=== PATIENT | male | born 1965 | race Caucasian/White ===

== ENCOUNTER → 2020-03-20 10:28 | Outpatient (REF) | payer MEDICARE, MEDICAID, SELFPAY ==
--- NOTE | 2020-03-20 10:30 | CA_ITS ---
Transthoracic Echocardiogram Patient (Last, First, Middle): Andry Lehman, Gender: Male Date of : 1965 Age: 55 Procedure Date: 03/20/2020 Procedure Type: Transthoracic Echocardiogram Location: OP Height: 170.18 cm Weight: 94.8 kg BSA: 2.06 m2 Heart Rate: bpm BP: 118 / 60 mmHg Systems Tester: MAYR Referring MD: Ramin Pillai MD Symptoms: [facility] [place] Conclusions: - 1. Normal LV systolic function with impaired relaxation filling pattern next 2. Slightly increased gradient across aortic valve suggestive may be early aortic stenosis 3. No pericardial effusion Findings Procedure Information Contrast agent, definity, is being given per protocol without apparent complications. Left Ventricle Normal left ventricular size, thickness, and systolic function. The visually estimated ejection fraction is between 55-60%. Spectral Doppler is indicative of an impaired relaxation filling pattern. E/E prime ratio is <8, consistent with normal filling pressures. Evidence suggests grade I (mild) diastolic dysfunction. Right Ventricle Normal right ventricular cavity size and systolic function. There is an ICD wire seen in the right ventricle. Atria Both atria are normal in size. There is no evidence of interatrial shunt. Aortic Valve There is mild calcification of the aortic valve. There is mild aortic valve stenosis. The mean gradient is 8 mmHg. The aortic valve area is 1.79 cm2. There is trace (trivial) aortic valve regurgitation. Mitral Valve There is mild anterior and posterior mitral leaflet thickening. There is trace mitral valve regurgitation. There is no mitral valve stenosis. Pulmonic Valve The pulmonic valve was not well visualized. Tricuspid Valve Likely normal tricuspid valve structure and function. Tricuspid regurgitation envelope is inadequate for calculation of right ventricular systolic pressure. Great Vessels All visible segments of the aorta are normal in size. The pulmonary artery was not well visualized. Venous The inferior vena cava is normal in size and collapses greater than 50% with inspiration. Pericardium/Pleural There is no evidence of pericardial effusion. Prior Study Comparison Changes noted compared to prior study dated: 04/25/2019. LV systolic function is normalized Measurements 2D Linear Measurements RVIDd: 3.13 RVIDd Index: 1.52 IVSd: 0.90 0.6-0.9/0.6-1.0 cm LVIDd: 5.77 3.9-5.3/4.2-5.9 cm LVIDd Index: 2.80 2.4-3.2/2.2-3.1 cm/m2 LVIDs: 4.08 2.0-3.6 cm LVPWd: 1.17 0.7-1.1 cm Ao Root: 2.70 2.1-3.5 cm LA Diam: 3.90 2.7-3.8/3.0-4.0 cm LAIDs Index: 1.89 1.5-2.3 cm/m2 LV Mass: 301.77 67-162/88-224 g LV Mass Index: 146.49 43-95/49-115 g/m2 LVOT Diam: 2.30 3.0+(-)1.3 cm 2D Systolic Function EF 4C: 54.20 >55% EF 2C: 59.60 >55% EF BiP: 56.60 >55% Mitral Valve MV Pk E: 0.59 MV PK A: 0.73 MV Decel Time: 222.00 E/A: 0.80 E'Lateral: 7.74 E'Medial: 5.03 E/E' Med: 11.70 E/E' Lat: 7.60 Aortic Valve AoV Pk Aleksey: 1.91 AoV Mn Aleksey: 1.36 AoV VTI: 0.46 AoV Pk Grad: 15.00 Aov Mn Grad: 8.00 SULTANA Cont.VTI: 1.79 LVOT LVOT Pk Aleksey: 0.90 LVOT Mn Aleksey: 0.64 LVOT VTI: 0.20 LVOT Pk Grad: 3.00 LVOT Mn Grad: 2.00 LVOT Diam: 2.30 LVOT Area: 4.15 Diastolic Function MV Pk E: 0.59 MV Pk A: 0.73 E/A: 0.80 E'Medial: 5.03 E/E' Med: 11.70 E' Laterial: 7.74 E/E' Lat: 7.60 Tricuspid Valve RA Press: 3.00 Great Vessels Aorta Ao Root-2D: 2.70 2.0-3.7 cm Ao Asc: 2.80 2.1-3.4 cm Ao Arch: 2.60 Updated in Other Vendor System with Status of Final Ramin Pillai MD electronically signed on 03/20/2020 4:48:16 PM with status of Final
== END ==
LOC: HO.CARD 10:28
PROVIDERS: PCP Nurse Practitioner Family; Visit Provider Internal Medicine Cardiovascular Disease
DX: I25.5 Ischemic cardiomyopathy (principal)
CPT/HCPCS: 93306; Q9957

== ENCOUNTER → 2020-04-14 12:41 | Outpatient (BNVA) | payer MEDICARE, MEDICAID, SELFPAY | PROVIDERS: PCP Nurse Practitioner Family; Visit Provider Nurse Practitioner Family | DX: I42.8 Other cardiomyopathies (principal); I25.10 Atherosclerotic heart disease of native coronary artery without angina pectoris; I11.0 Hypertensive heart disease with heart failure; I50.20 Unspecified systolic (congestive) heart failure; E11.9 Type 2 diabetes mellitus without complications; Z95.810 Presence of automatic (implantable) cardiac defibrillator; Z87.891 Personal history of nicotine dependence; Z79.82 Long term (current) use of aspirin; Z79.899 Other long term (current) drug therapy | CPT/HCPCS: 99214 ==

== ENCOUNTER 2020-08-12 11:00 | Outpatient (RCR) | payer OTHER, SELFPAY | END 2020-08-12 13:25 | disposition other institution (70) | LOC: HO.PT 11:00 | PROVIDERS: PCP Nurse Practitioner Family; Visit Provider Nurse Practitioner Family | DX: M25.552 Pain in left hip (principal) | CPT/HCPCS: 97110; 97162; 97530 ==

== ENCOUNTER → 2020-10-13 12:18 | Outpatient (BNVA) | payer OTHER, SELFPAY | PROVIDERS: PCP Nurse Practitioner Family; Visit Provider Internal Medicine Cardiovascular Disease | DX: Z45.02 Encounter for adjustment and management of automatic implantable cardiac defibrillator (principal); I50.20 Unspecified systolic (congestive) heart failure; I25.10 Atherosclerotic heart disease of native coronary artery without angina pectoris | CPT/HCPCS: 99212 ==

== ENCOUNTER → 2021-01-12 12:46 | Outpatient (BNVA) | payer OTHER, SELFPAY | PROVIDERS: PCP Nurse Practitioner Family; Referring Provider Nurse Practitioner Family; Visit Provider Internal Medicine Cardiovascular Disease | DX: I25.10 Atherosclerotic heart disease of native coronary artery without angina pectoris (principal); I50.20 Unspecified systolic (congestive) heart failure; Z95.810 Presence of automatic (implantable) cardiac defibrillator; Z79.899 Other long term (current) drug therapy | CPT/HCPCS: 99212 ==

== ENCOUNTER 2021-01-27 10:21 | Outpatient (REF) | payer OTHER, SELFPAY ==
[2021-01-27 10:46] LABS: MANUAL DIFF FLAG NO
[2021-01-27 10:52] LABS: Basophils Absolute Auto 0.1 X10*3/uL (0.0-0.2); Basophils Percent Auto 0.6 % (0-2); Eosinophils Absolute Auto 0.3 X10*3/uL (0.0-0.4); Eosinophils Percent Auto 2.5 % (0-4); Hematocrit 52.7 % (42-52); Hemoglobin 16.9 g/dl (14.0-18.0); Imm Gran Abs Auto 0.03 X10*3/uL (0.00-0.03); Imm Gran Pct Auto 0.3 % (0.0-0.4); Lymphocytes Absolute Auto 2.9 X10*3/uL (1.2-4.9); Lymphocytes Percent Auto 28.5 % (20-40); Mean Corpuscular HGB Conc 32.1 g/dl (31.0-36.0); Mean Corpuscular Hemoglobin 27.8 pg (27.0-33.0); Mean Corpuscular Volume 86.5 fL (80-98); Mean Platelet Volume 10.4 fL (9.4-12.4); Monocytes Absolute Auto 0.9 X10*3/uL (0.1-1.2); Monocytes Percent Auto 8.8 % (2-11); Neutrophils Percent Auto 59.3 % (45-73); Platelet Count 259 X10*3/uL (160-400); Red Blood Count 6.09 X10*6/uL (4.60-5.80); Red Cell Distribution Width 13.2 % (11.0-16.0); White Blood Count 10.2 X10*3/uL (4.8-10.8)
[2021-01-27 12:08] LABS: PSA,Total (Free>4and<10) 0.32 ng/mL (0.00-4.00)
[2021-02-01 11:16] LABS: Testosterone, Total 484 ng/dL (250-1100)
== END 2021-01-27 10:22 | disposition home or self-care (01) ==
LOC: HO.LAB 10:21
PROVIDERS: PCP Nurse Practitioner Family; Visit Provider Urology
DX: E29.1 Testicular hypofunction (principal)
CPT/HCPCS: 36415; 84153; 84403; 85025

== ENCOUNTER → 2021-02-03 11:19 | Outpatient (BNVA) | payer OTHER, SELFPAY | PROVIDERS: Visit Provider Urology | DX: E29.1 Testicular hypofunction (principal) | CPT/HCPCS: Q3014 ==

== ENCOUNTER 2021-02-18 09:08 | Outpatient (REF) | payer OTHER, SELFPAY ==
--- NOTE | 2021-02-18 11:10 | MHC.AU.AEV ---
Adult Audiological Evaluation Date of Visit: 02/18/21 Reason for Appointment: Patient has been experiencing hearing difficulty at home. He questions if it is due to excessive cerumen. He reports that he gets cerumen impactions at least once a year. He has been having more difficulty hearing from his left ear, which is the ear that usually builds up cerumen the most. Ear History: Ear Deformity: None Reported Recent Ear Drainage: None Reported Recent Ear Pain: None Reported Family History of Hearing Loss?: No Recent Ear Infections: None Reported Ear Infections in Childhood: None Reported History of Ear Wax Buildup: Both Ears Previous Ear Surgery: None Reported Bothersome Tinnitus/Ringing/Noises in Ears: None Reported Ear used on the phone: None Reported Blocked/Full Sensation in Ear(s): Left Ear History: No Medical History: Medical History: Diabetes, Hypertension, Heart Problems Otoscopy: Right Ear: Partially occluded with cerumen Left Ear: Completely occluded with cerumen Tympanometry: Tympanometry performed due to: To assess integrity of the middle ear system Right Ear: Normal Middle Ear System (Type A) Left Ear: Hypercompliant Middle Ear System (Type Ad) Hearing Evaluation: Transducer(s) Used: Circumaural Headphones Method: Conventional Audiometry Stimuli Used: Pure Tones Right Ear: Description of Hearing: Normal from 250-4000 Hz, mild sensorineural hearing loss at 9654-1541 Hz Left Ear: Description of Hearing: Borderline-normal from 250-1000 Hz, sloping to moderate/moderately-severe mixed hearing loss at 8000 Hz Speech Recognition Threshold (SRT): Method Used: Recorded Lists Stimuli Used: Spondee Words Right Ear: 15 dBHL Left Ear: 25 dBHL Word Discrimination: Method: Recorded Lists Word Lists Used:: W-22 Right Ear: 96% at 55 dBHL Left Ear: 92% at 55 dBHL Most Comfortable Level (MCL): Right Ear: 55 dBHL Left Ear: 55 dBHL Interpretation of Results: At the beginning of the appointment, the right ear was partially occluded and the left ear was fully occluded. With permission, a lighted disposable curette and suction were used for cerumen management. All of the occluding cerumen was able to be removed in the right ear. In the left ear, enough cerumen was able to be removed that a small portion of the tympanic membrane was visible; however, a substantial impaction is still present. It is too deep/hardened to be removed fully in the office today. Recommendations: Referral to Ear, Nose, and Throat is recommended for continued cerumen removal. After removal, the patient's hearing should be re-checked to determine what extent of the asymmetrical left hearing is due to cerumen vs potential other factors. Diagnosis: Primary Diagnosis: H90.A32 Mixed HL, Unilateral, Left Ear, W/Restricted Contralateral Signature: Provider: Joshua Perea, CCC-A
== END 2021-02-18 09:09 | disposition home or self-care (01) ==
LOC: HO.SH 09:08
PROVIDERS: Visit Provider Nurse Practitioner Family
DX: H90.A32 Mixed conductive and sensorineural hearing loss, unilateral, left ear with restricted hearing on the contralateral side (principal)
CPT/HCPCS: 92557; 92567

== ENCOUNTER → 2021-04-07 10:19 | Outpatient (REF) | payer OTHER, SELFPAY ==
--- NOTE | 2021-04-07 10:23 | CA_ITS ---
Transthoracic Echocardiogram Patient (Last, First, Middle): Andry Lehman, Gender: Male Date of : 1965 Age: 56 Procedure Date: 04/07/2021 Procedure Type: Transthoracic Echocardiogram Location: OP Height: 170.18 cm Weight: 82.56 kg BSA: 1.94 m2 Heart Rate: bpm BP: 130 / 61 mmHg Screw Driver Operator: DAVID Referring MD: Ramin Pillai MD Symptoms: I50.20 - Unspecified systolic (congestive) heart failure Conclusions: - The left ventricular systolic function is low normal. The visually estimated ejection fraction is between 50-55%. - No obvious valvular pathology seen on this study. Findings Left Ventricle Mildly increased left ventricular cavity size. There is mildly increased left ventricular wall thickness. The left ventricular systolic function is low normal. The visually estimated ejection fraction is between 50-55%. There is no evidence of regional wall motion abnormalities. Diastolic function is normal for age. LV peak GLS -12.8%. Right Ventricle Normal right ventricular cavity size and systolic function. There is an ICD wire seen in the right ventricle. Atria Both atria are normal in size. Aortic Valve There is a normal trileaflet aortic valve. There is no aortic valve stenosis. The peak aortic gradient is 11 mmHg.There is trace (trivial) aortic valve regurgitation. Mitral Valve The mitral valve appears normal. There is no mitral valve regurgitation. There is no mitral valve stenosis. Pulmonic Valve The pulmonic valve was not well visualized. Tricuspid Valve Normal tricuspid valve structure. There is trace tricuspid valve regurgitation. The pulmonary artery systolic pressure is normal. Great Vessels The asc aorta is normal in size. Venous The inferior vena cava is normal in size and collapses greater than 50% with inspiration. Pericardium/Pleural There is no evidence of pericardial effusion. Prior Study Comparison No significant change compared to prior study dated: 03/20/2020. Recommendations, Care & Conclusions No obvious valvular pathology seen on this study. Measurements 2D Linear Measurements IVSd: 1.06 0.6-0.9/0.6-1.0 cm LVIDd: 5.82 3.9-5.3/4.2-5.9 cm LVIDd Index: 3.00 2.4-3.2/2.2-3.1 cm/m2 LVIDs: 4.00 2.0-3.6 cm LVPWd: 1.05 0.7-1.1 cm Ao Root: 2.60 2.1-3.5 cm LA Diam: 3.70 2.7-3.8/3.0-4.0 cm LAIDs Index: 1.91 1.5-2.3 cm/m2 LV Mass: 313.60 67-162/88-224 g LV Mass Index: 161.65 43-95/49-115 g/m2 LVOT Diam: 2.10 3.0+(-)1.3 cm 2D Systolic Function EF 4C: 57.90 >55% EF 2C: 61.20 >55% EF BiP: 60.90 >55% Mitral Valve MV Pk E: 0.81 MV PK A: 0.74 MV Decel Time: 200.00 E/A: 1.10 E'Lateral: 8.81 E'Medial: 6.42 E/E' Med: 12.60 E/E' Lat: 9.20 PHT: 59.00 MVA PHT: 3.73 Decel Parker: 4.03 Aortic Valve AoV Pk Aleksey: 1.66 AoV Pk Grad: 11.00 LVOT LVOT Pk Aleksey: 0.87 LVOT Mn Aleksey: 0.56 LVOT VTI: 0.20 LVOT Pk Grad: 3.00 LVOT Mn Grad: 2.00 LVOT Diam: 2.10 LVOT Area: 3.46 Diastolic Function MV Pk E: 0.81 MV Pk A: 0.74 E/A: 1.10 E'Medial: 6.42 E/E' Med: 12.60 E' Laterial: 8.81 E/E' Lat: 9.20 Right Ventricle TAPSE (mm): 2.67 Tricuspid Valve TR Pk Aleksey: 2.28 TR Pk Grad: 21.00 RA Press: 3.00 RVSP: 24.00 Great Vessels Aorta Ao Root-2D: 2.60 2.0-3.7 cm Ao Asc: 3.00 2.1-3.4 cm Updated in Other Vendor System with Status of Final Alejandro Greene MD electronically signed on 04/08/2021 12:35:55 PM with status of Final
== END ==
LOC: HO.CARD 10:19
PROVIDERS: Visit Provider Internal Medicine Cardiovascular Disease
DX: I50.20 Unspecified systolic (congestive) heart failure (principal)
CPT/HCPCS: 93306; 93356

== ENCOUNTER 2021-07-23 08:38 | Outpatient (REF) | payer OTHER, SELFPAY ==
[2021-07-23 09:11] LABS: Hematocrit 57.3 % (42.0-52.0)
[2021-07-23 09:47] LABS: Prostate Specific Antigen 0.39 ng/mL (<0.05-4.0)
[2021-07-28 09:31] LABS: Testosterone, Total 759 ng/dL (250-1100)
== END 2021-07-23 08:39 | disposition home or self-care (01) ==
LOC: HO.LAB 08:38
PROVIDERS: Visit Provider Urology
DX: E29.1 Testicular hypofunction (principal); Z12.5 Encounter for screening for malignant neoplasm of prostate
CPT/HCPCS: 36415; 84153; 84403; 85014

== ENCOUNTER → 2021-08-05 13:55 | Outpatient (BNVA) | payer OTHER, SELFPAY | PROVIDERS: Visit Provider Urology | DX: E29.1 Testicular hypofunction (principal) | CPT/HCPCS: Q3014 ==

== ENCOUNTER → 2021-09-03 13:00 | Outpatient (BNVA) | payer OTHER, SELFPAY | PROVIDERS: Visit Provider Orthopaedic Surgery | DX: M75.102 Unspecified rotator cuff tear or rupture of left shoulder, not specified as traumatic (principal); R20.0 Anesthesia of skin; R20.2 Paresthesia of skin | CPT/HCPCS: 20610; 99212; J1100 ==

== ENCOUNTER 2021-10-19 09:08 | Outpatient (REF) | payer OTHER, SELFPAY ==
[2021-10-20 14:39] LABS: H Pylori Breath Test Positive (Negative)
== END 2021-10-19 09:09 | disposition home or self-care (01) ==
LOC: CF 09:08
PROVIDERS: Visit Provider Physician Assistant
DX: R13.10 Dysphagia, unspecified (principal); K52.9 Noninfective gastroenteritis and colitis, unspecified; R10.11 Right upper quadrant pain; E11.40 Type 2 diabetes mellitus with diabetic neuropathy, unspecified; M25.512 Pain in left shoulder; M47.812 Spondylosis without myelopathy or radiculopathy, cervical region; M75.102 Unspecified rotator cuff tear or rupture of left shoulder, not specified as traumatic; R20.0 Anesthesia of skin; R20.2 Paresthesia of skin; D17.1 Benign lipomatous neoplasm of skin and subcutaneous tissue of trunk; I25.10 Atherosclerotic heart disease of native coronary artery without angina pectoris; I10 Essential (primary) hypertension; Z95.810 Presence of automatic (implantable) cardiac defibrillator; Z11.0 Encounter for screening for intestinal infectious diseases; Z91.02 Food additives allergy status; Z88.8 Allergy status to other drugs, medicaments and biological substances; Z91.018 Allergy to other foods; Z79.82 Long term (current) use of aspirin; Z79.84 Long term (current) use of oral hypoglycemic drugs; Z79.899 Other long term (current) drug therapy
CPT/HCPCS: 36415; 83013; 99202

== ENCOUNTER 2021-11-02 13:11 | Outpatient (REF) | payer OTHER, SELFPAY ==
--- NOTE | ~2021-11-02 | XR_ITS ---
EXAMINATION: XR CERVICAL SPINE XR CHEST CLINICAL INFORMATION: Pain in left shoulder. COMPARISON: None TECHNIQUE: Cervical spine 4 views. Chest 1 view. FINDINGS: CERVICAL SPINE: There is normal cervical lordosis. The vertebral heights, alignment and disc heights are normal. There is no visible acute fracture, dislocation or subluxation seen. No lytic or sclerotic process. The prevertebral soft tissues are normal. CHEST: The lungs are well-expanded and clear of acute pneumonic process. The heart size and pulmonary vascularity is normal. There is solitary pacer electrode in the right ventricle. No gross bony abnormality seen. XR/XR chest 1V IMPRESSION: 1. Unremarkable cervical spine exam. 2. Unremarkable chest x-ray
--- NOTE | ~2021-11-02 | XR_ITS ---
EXAMINATION: XR CERVICAL SPINE XR CHEST CLINICAL INFORMATION: Pain in left shoulder. COMPARISON: None TECHNIQUE: Cervical spine 4 views. Chest 1 view. FINDINGS: CERVICAL SPINE: There is normal cervical lordosis. The vertebral heights, alignment and disc heights are normal. There is no visible acute fracture, dislocation or subluxation seen. No lytic or sclerotic process. The prevertebral soft tissues are normal. CHEST: The lungs are well-expanded and clear of acute pneumonic process. The heart size and pulmonary vascularity is normal. There is solitary pacer electrode in the right ventricle. No gross bony abnormality seen. XR/XR cervical spine 3V IMPRESSION: 1. Unremarkable cervical spine exam. 2. Unremarkable chest x-ray
== END 2021-11-02 13:12 | disposition home or self-care (01) ==
LOC: HO.XRAY 13:11
PROVIDERS: PCP Registered Nurse; Visit Provider Nurse Practitioner Family
DX: M25.512 Pain in left shoulder (principal); M47.812 Spondylosis without myelopathy or radiculopathy, cervical region; R20.0 Anesthesia of skin; R20.2 Paresthesia of skin
CPT/HCPCS: 71045; 72040

== ENCOUNTER → 2021-11-03 10:37 | Outpatient (BNVA) | payer OTHER, SELFPAY | PROVIDERS: PCP Registered Nurse; Visit Provider Nurse Practitioner Family | DX: E11.40 Type 2 diabetes mellitus with diabetic neuropathy, unspecified (principal); M25.512 Pain in left shoulder; M47.812 Spondylosis without myelopathy or radiculopathy, cervical region; M75.102 Unspecified rotator cuff tear or rupture of left shoulder, not specified as traumatic; R20.0 Anesthesia of skin; R20.2 Paresthesia of skin; D17.1 Benign lipomatous neoplasm of skin and subcutaneous tissue of trunk | CPT/HCPCS: Q3014 ==

== ENCOUNTER → 2021-11-23 08:53 | Outpatient (BNVA) | payer OTHER, SELFPAY | PROVIDERS: PCP Registered Nurse; Visit Provider Surgery | DX: L72.3 Sebaceous cyst (principal); I11.0 Hypertensive heart disease with heart failure; I50.20 Unspecified systolic (congestive) heart failure; I42.8 Other cardiomyopathies; E11.9 Type 2 diabetes mellitus without complications; I25.10 Atherosclerotic heart disease of native coronary artery without angina pectoris; Z95.810 Presence of automatic (implantable) cardiac defibrillator | CPT/HCPCS: 99202 ==

== ENCOUNTER 2021-12-14 11:59 | Outpatient (REF) | payer OTHER, SELFPAY ==
[2021-12-14 14:37] LABS: Blood Urea Nitrogen 21 mg/dL (9-16); Estimated Glomerular Filt Rate > 60
== END 2021-12-14 12:00 | disposition home or self-care (01) ==
LOC: HO.LAB 11:59
PROVIDERS: PCP Registered Nurse; Visit Provider Otolaryngology
DX: Z01.812 Encounter for preprocedural laboratory examination (principal)
CPT/HCPCS: 36415; 82565; 84520

== ENCOUNTER 2021-12-31 10:00 | Outpatient (REF) | payer OTHER, SELFPAY ==
--- NOTE | 2021-12-31 10:03 | EMG_ITS ---
Bilateral median and ulnar motor and sensory studies were performed. Bilateral radial and sensory studies were performed and paraspinal muscles were tested with a needle. IMPRESSION: 1. 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 2. 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 3. Bilateral Michel Shannon anastomosis. MD GRANT Rose/RADHA / [id number]
== END 2021-12-31 10:01 | disposition home or self-care (01) ==
LOC: HO.NEURO 10:00
PROVIDERS: PCP Registered Nurse; Visit Provider Nurse Practitioner Family
DX: M47.812 Spondylosis without myelopathy or radiculopathy, cervical region (principal); M75.102 Unspecified rotator cuff tear or rupture of left shoulder, not specified as traumatic; R20.0 Anesthesia of skin; R20.2 Paresthesia of skin; E11.40 Type 2 diabetes mellitus with diabetic neuropathy, unspecified
CPT/HCPCS: 95886; 95911

== ENCOUNTER 2022-01-04 08:47 | Outpatient (REF) | payer OTHER, SELFPAY ==
[2022-01-06 11:41] LABS: H Pylori Breath Test Negative (Negative)
== END 2022-01-04 08:48 | disposition home or self-care (01) ==
LOC: CF 08:47
PROVIDERS: PCP Registered Nurse; Visit Provider Physician Assistant
DX: A04.8 Other specified bacterial intestinal infections (principal); M75.102 Unspecified rotator cuff tear or rupture of left shoulder, not specified as traumatic; R20.0 Anesthesia of skin; R20.2 Paresthesia of skin; D17.1 Benign lipomatous neoplasm of skin and subcutaneous tissue of trunk; M47.812 Spondylosis without myelopathy or radiculopathy, cervical region; E11.40 Type 2 diabetes mellitus with diabetic neuropathy, unspecified
CPT/HCPCS: 36415; 83013; 99211; Q3014

== ENCOUNTER 2022-01-25 08:16 | Outpatient (REF) | payer OTHER, SELFPAY ==
--- NOTE | ~2022-01-25 | US_ITS ---
EXAMINATION: US COMPLETE ABDOMEN WITH LIVER ELASTOGRAPHY CLINICAL INFORMATION: Right upper quadrant pain. COMPARISON: Abdominal ultrasound dated 08/15/2019. TECHNIQUE: Real-time imaging of the abdominal viscera. Noninvasive ultrasound liver fibrosis assessment is performed using Gregorio ElastPQ point quantification shear wave elastography (2D-SWE) with a C5-2 MHz transducer. Multiple elastography samples are obtained. FINDINGS: PANCREAS: Normal. The visualized pancreatic head and body are normal in appearance. The remainder of the pancreas is obscured from visualization by the overlying bowel gas. ABDOMINAL AORTA: The proximal, middle, and distal aortic segments are normal in caliber. INFERIOR VENA CAVA: Visualized portions are normal. LIVER: Normal. The liver demonstrates normal size, contour and echogenicity. No focal lesion or intrahepatic biliary duct dilatation. The right lobe measures 17.0 cm in length. The left lobe measures 10.5 cm in length. Portal flow is towards the liver (hepatopetal). Shear wave liver elastography median stiffness is 1.4 m/s (reference: normal median stiffness is 1.3 m/s or less). IQR/median stiffness to assess sampling precision is 0.17 (reference: good quality data set is IQR/median stiffness of 0.15 or less). GALLBLADDER: Normal. The gallbladder is physiologically distended without evidence of stones, sludge, polyps, wall thickening or pericholecystic fluid. COMMON BILE DUCT: Normal in caliber measuring 0.4 cm in diameter. RIGHT KIDNEY: Normal. No hydronephrosis. No renal calculi or focal parenchymal lesions. The kidney measures 11.8 cm in maximum dimension. LEFT KIDNEY: Normal. No hydronephrosis. No renal calculi or focal parenchymal lesions. The kidney measures 11.5 cm in maximum dimension. SPLEEN: Normal. The spleen measures 9.1 cm in maximum dimension. FREE FLUID: None. US/US abdomen comp w elastography IMPRESSION: Liver elastography: Although measurements appear to rule out compensated advanced chronic liver disease, there is statistical variability of the sampling which decreases accuracy. REFERENCE: Society of Radiologists in Ultrasound Liver Stiffness Thresholds (2019): LIVER STIFFNESS THRESHOLDS: *Liver Stiffness equal or less than 1.3 m/s: High probability of being normal. *Liver Stiffness less than 1.7 m/s: In the absence of other known clinical signs, rules out compensated advanced chronic liver disease. *Liver Stiffness 1.7-2.1 m/s: Suggestive of compensated advanced chronic liver disease but need further test for confirmation. *Liver Stiffness over 2.1 m/s: Rules in compensated advanced chronic liver disease. *Liver Stiffness over 2.4 m/s: Suggestive of clinically significant portal hypertension. QUALITY OF DATA SET: *IQR/Median value equal or less than 0.15 implies a quality data set. *IQR/Median value over 0.15 implies a poor quality data set. SIGNIFICANT CHANGE FROM PRIOR EXAM: Significant change if liver stiffness measurement is 10% or greater from prior exam. OTHER CONSIDERATIONS: The stage of liver fibrosis may be overestimated in the setting of acute hepatitis, liver inflammation, elevated liver function tests, hepatic vascular congestion, obstructive cholestasis, non-fasting state, and infiltrative diseases such as amyloidosis and lymphoma. In some patients with NAFLD, the liver stiffness thresholds for compensated advanced chronic liver disease may be lower. In causes other than viral hepatitis and NAFLD, liver stiffness thresholds are not well established.
[2022-01-25 09:27] LABS: MANUAL DIFF FLAG NO
[2022-01-25 10:17] LABS: Basophils Absolute Auto 0.1 X10*3/uL (0.0-0.2); Basophils Percent Auto 0.9 % (0-2); Eosinophils Absolute Auto 0.3 X10*3/uL (0.0-0.4); Eosinophils Percent Auto 3.5 % (0-4); Hematocrit 53.7 % (42.0-52.0); Hemoglobin 16.7 g/dl (14.0-18.0); Imm Gran Abs Auto 0.06 X10*3/uL (0.00-0.03); Imm Gran Pct Auto 0.7 % (0.0-0.4); Lymphocytes Absolute Auto 1.9 X10*3/uL (1.2-4.9); Lymphocytes Percent Auto 22.2 % (20-40); Mean Corpuscular HGB Conc 31.1 g/dl (31.0-36.0); Mean Corpuscular Hemoglobin 27.5 pg (27.0-33.0); Mean Corpuscular Volume 88.3 fL (80.0-98.0); Mean Platelet Volume 11.2 fL (9.4-12.4); Monocytes Absolute Auto 0.8 X10*3/uL (0.1-1.2); Monocytes Percent Auto 9.2 % (2-11); Neutrophils Absolute Auto 5.6 x10*3/uL (2.0-8.3); Neutrophils Percent Auto 63.5 % (45-73); Platelet Count 229 X10*3/uL (160-400); Red Blood Count 6.08 X10*6/uL (4.60-5.80); Red Cell Distribution Width 13.1 % (11.0-16.0); White Blood Count 8.7 X10*3/uL (4.8-10.8)
[2022-01-25 10:54] LABS: Alanine Aminotransferase 18 U/L (0-40); Albumin Level 4.1 g/dL (3.5-5.0); Alkaline Phosphatase 92 U/L (39-117); Anion Gap 14 (12-20); Aspartate Amino Transferase 16 U/L (5-37); Bilirubin Total 0.6 mg/dL (0.0-1.0); Blood Urea Nitrogen 19 mg/dL (9-16); Calcium 9.1 mg/dL (8.4-10.2); Carbon Dioxide 28 mmol/L (22-29); Chloride 103 mmol/L (96-108); Estimated Glomerular Filt Rate > 60; Glucose Random 213 mg/dL (60-115); Potassium 5.1 mmol/L (3.3-5.1); Sodium 140 mmol/L (135-145); Total Protein 6.7 g/dL (6.5-8.0)
[2022-01-25 11:21] LABS: Prostate Specific Antigen 0.34 ng/mL (<0.05-4.0)
[2022-01-30 15:34] LABS: Testosterone, Total 231 ng/dL (250-1100)
== END 2022-01-25 08:17 | disposition home or self-care (01) ==
LOC: HO.US 08:16
PROVIDERS: Urology; PCP Registered Nurse; Visit Provider Physician Assistant
DX: Z12.5 Encounter for screening for malignant neoplasm of prostate (principal); R10.11 Right upper quadrant pain; E29.1 Testicular hypofunction; K52.9 Noninfective gastroenteritis and colitis, unspecified
CPT/HCPCS: 36415; 76705; 76981; 80053; 84153; 84403; 85025; 85027

== ENCOUNTER → 2022-02-09 11:24 | Outpatient (BNVA) | payer OTHER, SELFPAY | PROVIDERS: PCP Registered Nurse; Visit Provider Urology | DX: E29.1 Testicular hypofunction (principal); E11.69 Type 2 diabetes mellitus with other specified complication; N52.1 Erectile dysfunction due to diseases classified elsewhere | CPT/HCPCS: 99212 ==

== ENCOUNTER → 2022-04-20 09:39 | Outpatient (BNVA) | payer OTHER, SELFPAY | PROVIDERS: PCP Registered Nurse; Referring Provider Registered Nurse; Visit Provider Surgery | DX: L72.3 Sebaceous cyst (principal); I11.0 Hypertensive heart disease with heart failure; I50.20 Unspecified systolic (congestive) heart failure; I25.10 Atherosclerotic heart disease of native coronary artery without angina pectoris; I42.8 Other cardiomyopathies; E11.9 Type 2 diabetes mellitus without complications; Z95.810 Presence of automatic (implantable) cardiac defibrillator | CPT/HCPCS: 99212 ==

== ENCOUNTER → 2022-04-21 10:02 | Outpatient (BNVA) | payer OTHER, SELFPAY | PROVIDERS: PCP Registered Nurse; Visit Provider Orthopaedic Surgery | DX: G56.23 Lesion of ulnar nerve, bilateral upper limbs (principal); G56.03 Carpal tunnel syndrome, bilateral upper limbs; E11.9 Type 2 diabetes mellitus without complications | CPT/HCPCS: 99202 ==

== ENCOUNTER → 2022-04-26 10:15 | Outpatient (BNVA) | payer OTHER, SELFPAY | PROVIDERS: PCP Registered Nurse; Visit Provider Surgery | DX: L72.3 Sebaceous cyst (principal); I11.0 Hypertensive heart disease with heart failure; I50.20 Unspecified systolic (congestive) heart failure; I25.10 Atherosclerotic heart disease of native coronary artery without angina pectoris; I42.8 Other cardiomyopathies; E11.40 Type 2 diabetes mellitus with diabetic neuropathy, unspecified; Z95.810 Presence of automatic (implantable) cardiac defibrillator | CPT/HCPCS: 11403; 99212 ==

== ENCOUNTER → 2022-05-11 10:24 | Outpatient (BNVA) | payer OTHER, SELFPAY | PROVIDERS: PCP Registered Nurse; Visit Provider Surgery | DX: Z09 Encounter for follow-up examination after completed treatment for conditions other than malignant neoplasm (principal); L72.3 Sebaceous cyst | CPT/HCPCS: 99212 ==

== ENCOUNTER → 2022-05-17 13:25 | Outpatient (BNVA) | payer OTHER, SELFPAY | PROVIDERS: PCP Registered Nurse; Referring Provider Registered Nurse; Visit Provider Internal Medicine Cardiovascular Disease | DX: Z45.02 Encounter for adjustment and management of automatic implantable cardiac defibrillator (principal); I50.20 Unspecified systolic (congestive) heart failure; I25.10 Atherosclerotic heart disease of native coronary artery without angina pectoris | CPT/HCPCS: 93005; 99212 ==

== ENCOUNTER → 2022-06-01 07:34 | Outpatient (REF) | payer OTHER, SELFPAY ==
--- NOTE | 2022-06-01 07:40 | CA_ITS ---
Transthoracic Echocardiogram Patient (Last, First, Middle): Andry Lehman, Gender: Male Date of : 1965 Age: 57 Procedure Date: 06/01/2022 Procedure Type: Transthoracic Echocardiogram Location: OP Height: 170.18 cm Weight: 89.36 kg BSA: 2.01 m2 Heart Rate: bpm BP: 130 / 70 mmHg Squad Leader: TO Referring MD: Ramin Pillai MD Symptoms: I50.20 - Unspecified systolic (congestive) heart failure Study Quality: Fair ECG Rhythm: Sinus Conclusions: - The left ventricular systolic function is low normal. The visually estimated ejection fraction is between 50-55%. - Mildly increased left ventricular cavity size. - No obvious valvular pathology seen on this study. Findings Left Ventricle Mildly increased left ventricular cavity size. There is normal left ventricular wall thickness. The left ventricular systolic function is low normal. The visually estimated ejection fraction is between 50-55%. There is no evidence of regional wall motion abnormalities. Diastolic function is normal for age. Right Ventricle Normal right ventricular cavity size and systolic function. There is an ICD wire seen in the right ventricle. Atria Both atria are normal in size. Aortic Valve There is a normal trileaflet aortic valve. There is no aortic valve stenosis. There is trace (trivial) aortic valve regurgitation. Mitral Valve There is mild anterior mitral leaflet thickening. There is no mitral valve regurgitation. There is no mitral valve stenosis. Pulmonic Valve The pulmonic valve is likely normal. Tricuspid Valve Normal tricuspid valve structure. There is trace tricuspid valve regurgitation. There is no evidence of pulmonary hypertension. Great Vessels The asc aorta is normal in size. Venous The inferior vena cava is normal in size and collapses greater than 50% with inspiration. Pericardium/Pleural There is no evidence of pericardial effusion. Prior Study Comparison No significant change compared to prior study dated: 04/07/2021. LVEDD slightly larger. Recommendations, Care & Conclusions No obvious valvular pathology seen on this study. Measurements 2D Linear Measurements IVSd: 0.90 0.6-0.9/0.6-1.0 cm LVIDd: 6.04 3.9-5.3/4.2-5.9 cm LVIDd Index: 3.00 2.4-3.2/2.2-3.1 cm/m2 LVIDs: 4.13 2.0-3.6 cm LVPWd: 0.82 0.7-1.1 cm LA Diam: 3.80 2.7-3.8/3.0-4.0 cm LAIDs Index: 1.89 1.5-2.3 cm/m2 LV Mass: 256.25 67-162/88-224 g LV Mass Index: 127.49 43-95/49-115 g/m2 LVOT Diam: 2.20 3.0+(-)1.3 cm 2D Systolic Function EF 4C: 55.50 >55% EF 2C: 54.20 >55% EF BiP: 55.30 >55% Mitral Valve MV Pk E: 0.65 MV PK A: 0.52 MV Decel Time: 213.00 E/A: 1.20 E'Lateral: 9.68 E'Medial: 5.33 E/E' Med: 12.10 E/E' Lat: 6.70 PHT: 63.00 MVA PHT: 3.49 Decel Carroll: 3.03 Aortic Valve AoV Pk Aleksey: 1.87 AoV Mn Aleksey: 1.24 AoV VTI: 0.40 AoV Pk Grad: 14.00 Aov Mn Grad: 7.00 SULTANA Cont.VTI: 2.23 LVOT LVOT Pk Aleksey: 1.04 LVOT Mn Aleksey: 0.68 LVOT VTI: 0.24 LVOT Pk Grad: 4.00 LVOT Mn Grad: 2.00 LVOT Diam: 2.20 LVOT Area: 3.80 Diastolic Function MV Pk E: 0.65 MV Pk A: 0.52 E/A: 1.20 E'Medial: 5.33 E/E' Med: 12.10 E' Laterial: 9.68 E/E' Lat: 6.70 Right Ventricle TAPSE (mm): 21.40 TVS' Aleksey: 12.50 Tricuspid Valve RA Press: 3.00 Great Vessels Aorta Sinus of Valsalva: 3.20 2.0-3.5 cm Ao Asc: 2.80 2.1-3.4 cm Ao Arch: 2.80 Updated in Other Vendor System with Status of Final Alejandro Greene MD electronically signed on 06/03/2022 4:23:07 PM with status of Final
[2022-06-01 08:42] LABS: Cholesterol 116 mg/dL; HDL Cholesterol 34 mg/dL; LDL Cholesterol Calculated 49 mg/dl; Triglycerides 168 mg/dL
== END ==
LOC: HO.CARD 07:34
PROVIDERS: PCP Registered Nurse; Visit Provider Internal Medicine Cardiovascular Disease
DX: I50.20 Unspecified systolic (congestive) heart failure (principal); I25.10 Atherosclerotic heart disease of native coronary artery without angina pectoris
CPT/HCPCS: 36415; 80061; 93306

== ENCOUNTER → 2022-07-21 09:34 | Outpatient (BNVA) | payer OTHER, SELFPAY | PROVIDERS: Visit Provider Orthopaedic Surgery | DX: G56.23 Lesion of ulnar nerve, bilateral upper limbs (principal); G56.03 Carpal tunnel syndrome, bilateral upper limbs; E11.9 Type 2 diabetes mellitus without complications | CPT/HCPCS: 99212 ==

== ENCOUNTER 2022-08-09 08:41 | Outpatient (REF) | payer OTHER, SELFPAY ==
[2022-08-09 09:01] LABS: Hemoglobin 18.8 g/dl (14.0-18.0); Mean Corpuscular HGB Conc 31.1 g/dl (31.0-36.0); Mean Corpuscular Hemoglobin 26.9 pg (27.0-33.0); Mean Corpuscular Volume 86.5 fL (80.0-98.0); Mean Platelet Volume 11.4 fL (9.4-12.4); Platelet Count 291 X10*3/uL (160-400); Red Blood Count 6.98 X10*6/uL (4.60-5.80); Red Cell Distribution Width 14.7 % (11.0-16.0); White Blood Count 11.9 X10*3/uL (4.8-10.8)
[2022-08-09 09:15] LABS: Hematocrit 60.4 % (42.0-52.0)
[2022-08-09 09:50] LABS: Prostate Specific Antigen 0.57 ng/mL (<0.05-4.0)
[2022-08-15 13:43] LABS: Testosterone, Total 879 ng/dL (250-1100)
== END 2022-08-09 08:42 | disposition home or self-care (01) ==
LOC: HO.LAB 08:41
PROVIDERS: PCP Registered Nurse; Visit Provider Urology
DX: Z12.5 Encounter for screening for malignant neoplasm of prostate (principal); E29.1 Testicular hypofunction
CPT/HCPCS: 36415; 84153; 84403; 85027

== ENCOUNTER 2022-10-21 09:13 | Outpatient (REF) | payer OTHER, SELFPAY ==
[2022-10-21 09:50] LABS: Hematocrit 53.1 % (42.0-52.0); Hemoglobin 16.8 g/dl (14.0-18.0); Mean Corpuscular HGB Conc 31.6 g/dl (31.0-36.0); Mean Corpuscular Hemoglobin 26.5 pg (27.0-33.0); Mean Corpuscular Volume 83.8 fL (80.0-98.0); Mean Platelet Volume 11.5 fL (9.4-12.4); Platelet Count 226 X10*3/uL (160-400); Red Blood Count 6.34 X10*6/uL (4.60-5.80); Red Cell Distribution Width 14.1 % (11.0-16.0); White Blood Count 11.6 X10*3/uL (4.8-10.8)
== END 2022-10-21 09:14 | disposition home or self-care (01) ==
LOC: HO.LAB 09:13
PROVIDERS: Visit Provider Urology
DX: E29.1 Testicular hypofunction (principal)
CPT/HCPCS: 36415; 85027

== ENCOUNTER → 2022-10-26 09:12 | Outpatient (BNVA) | payer OTHER, SELFPAY | PROVIDERS: PCP Registered Nurse; Visit Provider Orthopaedic Surgery | DX: G56.03 Carpal tunnel syndrome, bilateral upper limbs (principal); G56.23 Lesion of ulnar nerve, bilateral upper limbs; E11.9 Type 2 diabetes mellitus without complications | CPT/HCPCS: 99212 ==

== ENCOUNTER → 2022-10-29 08:38 | Outpatient (BNVA) | payer OTHER, SELFPAY | PROVIDERS: PCP Registered Nurse; Visit Provider Urology | DX: E29.1 Testicular hypofunction (principal); E11.69 Type 2 diabetes mellitus with other specified complication; N52.1 Erectile dysfunction due to diseases classified elsewhere | CPT/HCPCS: Q3014 ==

== ENCOUNTER → 2022-11-11 11:23 | Outpatient (BNVA) | payer OTHER, SELFPAY | PROVIDERS: PCP Registered Nurse; Visit Provider Physician Assistant | DX: R13.10 Dysphagia, unspecified (principal); K21.9 Gastro-esophageal reflux disease without esophagitis; Z98.890 Other specified postprocedural states; Z95.810 Presence of automatic (implantable) cardiac defibrillator | CPT/HCPCS: 99202; 99212 ==

== ENCOUNTER 2022-11-18 05:48 | Day surgery (SDC) | payer OTHER, SELFPAY ==
[2022-11-09 08:57] VITALS: BMI 32.0
--- NOTE | 2022-11-10 08:58 | HO.ANESPROP2 ---
HPI - Anesthesia Eval Consult details Narrative: 57yo M for Left Cubital Tunnel Release vs transposition, Left Carpal Tunnel Release [place] [facility] [place] PMFSH Active Problems Active Problems: All Active Problems (Updated 11/09/22 @ 08:58 by Merced Ramey RN) Hypogonadism in male (Acute) Bilateral arm numbness and tingling while sleeping (Acute) Rotator cuff tear, left (Acute) Cervical spondylosis (Acute) Left shoulder pain (Acute) Diabetic neuropathy (Acute) Lipoma of back (Acute) Poor historian (Acute) RUQ pain (Acute) Acid reflux (Acute) Dysphagia (Acute) H. pylori infection (Acute) Sebaceous cyst (Acute) Bilateral neuropathy of upper extremities (Acute) Carpal tunnel syndrome (Acute) Cubital tunnel syndrome of both upper extremities (Acute) Erectile dysfunction associated with type 2 diabetes mellitus (Acute) Sebaceous cyst (Acute) Carpal tunnel syndrome on both sides (Acute) Postoperative infection (Acute) ICD (implantable cardioverter-defibrillator) in place (Acute) HFrEF (heart failure with reduced ejection fraction) (Acute) Nonischemic cardiomyopathy (Acute) HTN (hypertension) (Acute) Diabetes mellitus (Acute) CAD (coronary artery disease) (Acute) Past Medical History Medical History CAD (coronary artery disease) Diabetes mellitus HFrEF (heart failure with reduced ejection fraction) HTN (hypertension) ICD (implantable cardioverter-defibrillator) in place Nonischemic cardiomyopathy Family History Family History Father No problems noted. Mother No problems noted. Surgical History Surgical History H/O colonoscopy History of cardiac cath (~2017) Social History Social History Household Members: Spouse Alcohol intake: former Patient Tobacco Use Status: Former Tobacco user Meds Allergies Allergy/AdvReac Type Severity Reaction Status Date / Time avocado [AVOCADO] Allergy Severe HIVES/SOB Verified 11/18/22 06:30 lisinopril Allergy Severe Unknown Verified 11/18/22 06:30 passion fruit [PASSION FRUIT] Allergy Severe HIVES/SOB Verified 11/18/22 06:30 sacubitril [Entresto] Allergy Severe Unknown Verified 11/18/22 06:30 valsartan [Entresto] Allergy Severe Unknown Verified 11/18/22 06:30 soy [SOY] Allergy Unknown SWELLING Verified 11/18/22 06:30 Home Medications Medication Instructions Recorded Confirmed Last Taken Type albuterol sulfate 90 mcg/actuation 1 inh inhalation Q4H PRN Shortness 10/13/20 11/11/22 11/18/22 History aerosol inhaler Of Breath cholecalciferol (vitamin D3) 50 50 mcg PO DAILY 10/13/20 11/11/22 Unknown History mcg (2,000 unit) capsule cyanocobalamin (vitamin B-12) 1,000 mcg PO DAILY 10/13/20 11/11/22 Unknown History 1,000 mcg tablet metformin 500 mg tablet 500 mg PO BID 10/13/20 11/11/22 Unknown History zolpidem 5 mg tablet 5 mg PO BEDTIME 10/13/20 11/11/22 Unknown History blood sugar diagnostic (FreeStyle #10 ea 08/05/21 11/11/22 Unknown History Lite Strips) citalopram 20 mg tablet 20 mg PO DAILY 08/05/21 11/11/22 Unknown History lancets 33 gauge (TRUEplus Lancets) #100 ea 08/05/21 11/11/22 Unknown History empagliflozin 25 mg tablet 25 mg PO DAILY 04/21/22 11/11/22 Unknown History (Jardiance) quetiapine 50 mg tablet 50 mg PO BEDTIME 04/21/22 11/11/22 Unknown History Exam Exam Date and Time: November 10, 2022 0858 Height,Weight and Vital Signs: Height 5 ft 6 in Weight 89.811 kg Pertinent Lab Results Pertinent Lab Results: Laboratory Tests 01/25/22 10/21/22 09:25 09:31 WBC 11.6 H Hgb 16.8 Hct 53.1 H Plt Count 226 Sodium 140 Potassium 5.1 Chloride 103 Carbon Dioxide 28 BUN 19 H Creatinine 1.12 Narrative Narrative: Cardiac Device Check - HF monitor Details: Remote heart failure report generated 10/12/2022.? Heart failure parameters are stable Cardiac Device Check - ICD 04/2022 Details: Single-chamber [employer]otronik ICD in place.? Programmed in VVI at 40 beats per minute.? Atrial ventricular sensing is excellent.? Pacing and shock lead impedance is stable.? No ventricular pacing noted.? No arrhythmias noted.? Battery life is this could EKG 04/2022 Details: EKG shows normal sinus rhythm normal EKG ECHO 05/2022 Conclusions: - The left ventricular systolic function is low normal.? The ? ? visually estimated ejection fraction is between 50-55%.? - Mildly increased left ventricular cavity size. ? - No obvious valvular pathology seen on this study.? Assessment and Plan Assessment Anesthesia Assessment: Chart Reviewed
[2022-11-18] VITALS (8 sets, daily range): BP systolic 123–151; BP diastolic 59–84; PULSE 71–77; RESP 16–18; TEMP 36.3–36.6; O2SAT 94–100
[2022-11-18] MEDS: Lactated Ringers 1,000 ML 50 ML IVCONT (06:19)
[2022-11-18 06:30] LABS: Glucose, Whole Blood 150 mg/dL (60-115)
--- NOTE | 2022-11-18 07:36 | P.CONAN_ITS ---
[facility] Active Problems Active Problems: All Active Problems (Updated 11/11/22 @ 14:00 by Amna Liu PA-C) Hypogonadism in male (Acute) Bilateral arm numbness and tingling while sleeping (Acute) Rotator cuff tear, left (Acute) Cervical spondylosis (Acute) Left shoulder pain (Acute) Diabetic neuropathy (Acute) Lipoma of back (Acute) Poor historian (Acute) RUQ pain (Acute) Acid reflux (Acute) Dysphagia (Acute) H. pylori infection (Acute) Sebaceous cyst (Acute) Bilateral neuropathy of upper extremities (Acute) Carpal tunnel syndrome (Acute) Cubital tunnel syndrome of both upper extremities (Acute) Erectile dysfunction associated with type 2 diabetes mellitus (Acute) Sebaceous cyst (Acute) Carpal tunnel syndrome on both sides (Acute) Postoperative infection (Acute) ICD (implantable cardioverter-defibrillator) in place (Acute) HFrEF (heart failure with reduced ejection fraction) (Acute) Nonischemic cardiomyopathy (Acute) HTN (hypertension) (Acute) Diabetes mellitus (Acute) CAD (coronary artery disease) (Acute) Past Medical History Medical History CAD (coronary artery disease) Diabetes mellitus HFrEF (heart failure with reduced ejection fraction) HTN (hypertension) ICD (implantable cardioverter-defibrillator) in place Nonischemic cardiomyopathy Functional capacity: independent ambulation Family History Family History Father No problems noted. Mother No problems noted. Surgical History Surgical History H/O colonoscopy History of cardiac cath (~2016) Social History Social History Household Members: Spouse Alcohol intake: former Patient Tobacco Use Status: Former Tobacco user Are you DNR?: No Advance Directives: No Advance Directives Information Provided: Yes Nutrition Risks: No Nutritional Risk Meds Allergies Allergy/AdvReac Type Severity Reaction Status Date / Time avocado [AVOCADO] Allergy Severe HIVES/SOB Verified 11/18/22 06:30 lisinopril Allergy Severe Unknown Verified 11/18/22 06:30 passion fruit [PASSION FRUIT] Allergy Severe HIVES/SOB Verified 11/18/22 06:30 sacubitril [Entresto] Allergy Severe Unknown Verified 11/18/22 06:30 valsartan [Entresto] Allergy Severe Unknown Verified 11/18/22 06:30 soy [SOY] Allergy Unknown SWELLING Verified 11/18/22 06:30 Active Medications: Current Medications Lactated Ringer's (Lr) 1,000 mls @ 50 mls/hr IVCONT .Q20H CHILANGO Last Admin: 11/18/22 06:19 Dose: 50 mls/hr Home Medications Medication Instructions Recorded Confirmed Last Taken Type albuterol sulfate 90 mcg/actuation 1 inh inhalation Q4H PRN Shortness 10/13/20 11/11/22 11/18/22 History aerosol inhaler Of Breath cholecalciferol (vitamin D3) 50 50 mcg PO DAILY 10/13/20 11/11/22 Unknown History mcg (2,000 unit) capsule cyanocobalamin (vitamin B-12) 1,000 mcg PO DAILY 10/13/20 11/11/22 Unknown History 1,000 mcg tablet metformin 500 mg tablet 500 mg PO BID 10/13/20 11/11/22 Unknown History zolpidem 5 mg tablet 5 mg PO BEDTIME 10/13/20 11/11/22 Unknown History blood sugar diagnostic (FreeStyle #10 ea 08/05/21 11/11/22 Unknown History Lite Strips) citalopram 20 mg tablet 20 mg PO DAILY 08/05/21 11/11/22 Unknown History lancets 33 gauge (TRUEplus Lancets) #100 ea 08/05/21 11/11/22 Unknown History empagliflozin 25 mg tablet 25 mg PO DAILY 04/21/22 11/11/22 Unknown History (Jardiance) quetiapine 50 mg tablet 50 mg PO BEDTIME 04/21/22 11/11/22 Unknown History Exam Exam Date and Time: November 18, 2022 0736 Height,Weight and Vital Signs: Height 5 ft 6 in Weight 89.811 kg Last Vital Signs Temp 97.8 F 11/18/22 06:28 Pulse 71 11/18/22 06:28 Resp 18 11/18/22 06:28 BP 123/59 L 11/18/22 06:28 Pulse Ox 95 11/18/22 06:28 O2 Del Method Room Air 11/18/22 06:28 Pertinent Lab Results Pertinent Lab Results: Laboratory Tests 11/18/22 06:20 POC Glucose 150 H Airway Mallampati Class: III TM Dist: >3cm Neck ROM: Full Heart: RRR Lungs: CTA Assessment and Plan Final Anesthetic Review ASA Class: III Final Preanesthetic Review: Meds/Allgs Chart Reviewed, Consent Obtained/Reviewed and Anes Risks/Benef Reviewed Patient Risk: Intermediate Procedure Risk: Low Anesthetic Plan Anesthetic Plan: GA Disposition: Standard PACU
--- NOTE | 2022-11-18 07:43 | MHC.SHP ---
Pre-Procedural Eval Section A Date of Service: 11/18/22 The patient is an INPATIENT: No Changes since office visit: No Cold of Flu in the past 2 weeks, No New Medical Problems, No Changes in Medication and No Patient answered all questions The History & Physical has been completed within 30 days and I have reviewed it.: Yes Section B Chief Complaint: carpal tunnel release,lesion of ulnar Allergies: Allergies Allergy/AdvReac Type Severity Reaction Status Date / Time avocado [AVOCADO] Allergy Severe HIVES/SOB Verified 11/18/22 06:30 lisinopril Allergy Severe Unknown Verified 11/18/22 06:30 passion fruit [PASSION FRUIT] Allergy Severe HIVES/SOB Verified 11/18/22 06:30 sacubitril [Entresto] Allergy Severe Unknown Verified 11/18/22 06:30 valsartan [Entresto] Allergy Severe Unknown Verified 11/18/22 06:30 soy [SOY] Allergy Unknown SWELLING Verified 11/18/22 06:30 Plan I have reviewed the history and physical and performed a pertinent physical examination on my patient. No changes have occurred unless specified. Time Spent With Patient Time: Total time managing care of this patient today ____ minutes.
--- NOTE | 2022-11-18 07:44 | W.PM.OPN ---
Operative Note Operative Note Date of Service: 11/18/22 Narrative: Operative Note Narrative: Preop diagnosis: 1. Left Cubital tunnel syndrome 2. Left carpal tunnel syndrome Postop diagnosis: Same Procedure: 1. Left Cubital Tunnel Release 2. Left carpal tunnel release Surgeon: Nilda Nixon MD Anesthesia: General Anesthesia Findings: Thickening and fibrosis about the ulnar nerve at the cubital tunnel Implants: none Tourniquet time: 33 minutes EBL: 5.0 ml Specimen: none Drains: None Complications: None Disposition: Brought to the recovery room in stable condition Plan: Follow-up in 10-14 days for wound check, and suture removal Indications: The patient is 57 years old with man . The risks and benefits of operative treatment, including but not limited to risk of damage to blood vessels, nerves, tendons, infection, recurrence, persistent pain or numbness, incomplete resolution of preoperative symptoms, or need for further surgery were discussed with the patient and they wished to proceed with surgery. Procedure: Once consent was obtained patient was brought back to the operating suite and placed in the operating table in a supine position. Perioperative antibiotics and anesthesia was administered by the anesthesia team. The limb was prepped and draped in a standard surgical fashion, and a sterile tourniquet applied to the proximal aspect of the left upper extremity. The limb was elevated exsanguinated with Esmarch bandage and the tourniquet inflated to 250 mm of mercury for a total tourniquet time of 33 minutes. A 6 cm gently curved but longitudinally oriented incision was made centered over the cubital tunnel of the left upper extremity. Incision was made through the skin to the subcutaneous tissues using a # 15 Blade. I then dissected down to the level of the medial epicondyle and the cubital tunnel using tenotomy scissors. Care was taken to protect the lateral antebrachial cutaneous nerve. The ulnar nerve was identified just posterior to the medial intermuscular septum. The ulnar nerve was released in a proximal to distal direction using tenotomy in iris scissors while directly visualizing and protecting the ulnar nerve. Thickening and fibrosis was appreciated about the ulnar nerve as it passed through the cubital tunnel. The ulnar nerve was assessed as I passed the elbow through full flexion and extension and was found to remain stable within its groove. At this point the tourniquet was deflated and hemostasis obtained with a brief period of local pressure and bipolar electrocautery. The wound was copiously irrigated with normal saline. The subcutaneous layer was closed with 4-0 Vicryl suture, and the skin edges were reapproximated with 5-0 nylon suture. The wound was infiltrated with some 1% lidocaine with epinephrine for postop pain control and a sterile dressing was applied. The patient appears to have tolerated the procedure well and with no complications. All digits were well vascularized conclusion of the case.
[2022-11-18] MEDS: Acetaminophen 1,000 MG/100 ML PIGGYBACK 400 MG IV (10:05)
--- NOTE | 2022-11-18 10:18 | HO.POSTANES ---
Post Anesthesia Evaluation Post Anesthesia Evaluation Date of Service: 11/18/22 Vital Signs: Vital Signs Temp Pulse Resp BP Pulse Ox O2 Del Method O2 Flow Rate 11/18/22 10:07 97.4 F 77 18 146/81 H 94 Room Air 11/18/22 09:52 75 16 134/72 94 Room Air 11/18/22 09:37 74 16 124/61 94 Room Air 11/18/22 09:33 73 16 133/73 94 Room Air 11/18/22 09:28 72 16 137/84 95 Room Air 11/18/22 09:23 97.4 F 71 16 151/78 H 100 Simple Mask 8 11/18/22 06:28 97.8 F 71 18 123/59 L 95 Room Air Anesthesia: General LMA Mental Status: Awake Pain Control: Satisfactory Nausea/Vomiting: None Hydration: Adequate Anesthesia-Related Issues: No Anes. Related Issues
[2022-11-18] MEDS: oxyCODONE HCl Immed Release 5 MG TABLET PO (10:30)
== END 2022-11-18 11:00 | disposition home or self-care (01) ==
PROVIDERS: PCP Registered Nurse; Visit Provider Orthopaedic Surgery
PROC: (CPT 64718; principal; 2022-11-18 07:30)
PROC: (CPT 64721; 2022-11-18 07:30)
DX: G56.02 Carpal tunnel syndrome, left upper limb (principal); G56.22 Lesion of ulnar nerve, left upper limb; R20.0 Anesthesia of skin; I50.20 Unspecified systolic (congestive) heart failure; I11.0 Hypertensive heart disease with heart failure; I25.10 Atherosclerotic heart disease of native coronary artery without angina pectoris; I42.8 Other cardiomyopathies; E11.9 Type 2 diabetes mellitus without complications; Z88.8 Allergy status to other drugs, medicaments and biological substances; Z95.810 Presence of automatic (implantable) cardiac defibrillator
CPT/HCPCS: 64721; 64718; 82947; J0131; J0690; J2250; J2795; J3010

== ENCOUNTER → 2022-12-01 09:17 | Outpatient (BNVA) | payer OTHER, SELFPAY | PROVIDERS: PCP Registered Nurse; Visit Provider Physician Assistant | DX: Z48.811 Encounter for surgical aftercare following surgery on the nervous system (principal); Z86.69 Personal history of other diseases of the nervous system and sense organs; E11.9 Type 2 diabetes mellitus without complications | CPT/HCPCS: 99212 ==

== ENCOUNTER → 2022-12-23 11:29 | Outpatient (BNVA) | payer OTHER, SELFPAY | PROVIDERS: PCP Registered Nurse; Visit Provider Physician Assistant | DX: K21.9 Gastro-esophageal reflux disease without esophagitis (principal); R13.10 Dysphagia, unspecified | CPT/HCPCS: 99212 ==

== ENCOUNTER 2022-12-29 10:14 | Outpatient (AMB) | payer OTHER, SELFPAY ==
--- NOTE | 2022-12-29 10:24 | A.OFFVIS_ITS ---
Intake Vital Signs 12/29/22 10:31 Height 5 ft 6 in Weight 198 lb BMI 32.0 Intake Visit Reasons: O/V-Discuss RT CT+CTR Intake Note: Andry 57 yr old male who is P/O left CTR and Cubital tunnel from 11/18/22, presents today to discuss CTR for his right hand. States he is ready to have his surgery for his right hand. Consent reviewed and signed. Patient reports he is very happy with results from his left hand and has full sensation and is able to get a good night sleep. Allergies avocado [AVOCADO] Allergy (Severe, Verified 12/29/22 10:37) HIVES/SOB lisinopril Allergy (Severe, Verified 12/29/22 10:37) Unknown passion fruit [PASSION FRUIT] Allergy (Severe, Verified 12/29/22 10:37) HIVES/SOB sacubitril [Entresto] Allergy (Severe, Verified 12/29/22 10:37) Unknown valsartan [Entresto] Allergy (Severe, Verified 12/29/22 10:37) Unknown soy [SOY] Allergy (Unknown, Verified 12/29/22 10:37) SWELLING HPI O/V-Discuss RT CT+CTR HPI Details Andry is a 57 year old left hand dominant man who returns to discuss his right carpal & cubital tunnel syndrome. He is S/P left carpal tunnel & cubital tunnel release, DOS: 11/18/22. He continues to have dense numbness in the right hand. He says his nighttime symptoms are worsening and he complains of pain at night. In regards to his left hand, he says his sensation is normal to all digits except his small finger, which is still numb but improved. He is very happy with the results of his surgery. He says he is under stress due to medical comorbidities and due to his being ill and recovering from multiple surgeries. He has a Hx of Diabetes, CAD, HFrEF and an ICD. He stays active with walking frequently, but the majority of his time is spent on caring for his & mother due to their medical issues.? [facility] Medical History CAD (coronary artery disease) Diabetes mellitus HFrEF (heart failure with reduced ejection fraction) HTN (hypertension) ICD (implantable cardioverter-defibrillator) in place Nonischemic cardiomyopathy Surgical History H/O colonoscopy History of cardiac cath (~2017) History of carpal tunnel surgery Family History Father No problems noted. Mother No problems noted. Social History Household Members: Spouse Alcohol intake: former Patient Tobacco Use Status: Former Tobacco user Physical Exam Vital Signs: BMI result Body Mass Index 32.0 Const General: no acute distress and alert Orientation/consciousness: patient oriented x3 Neuro General: patient oriented x3 Extrem Other: Evaluation of Right Upper Extremity: The patient is alert, oriented, and in no acute distress Neuro: Decreased sensation in the median nerve distribution. Dense numbness in the ulnar nerve distribution With intrinsic wasting and no thenar wasting Difficulty with finger cross on the right Weak ABduction and ADduction Normal sensation to the median nerve distribution of the left hand. Sensation in the left small finger improved but not yet normal. Vascular: Cap refill brisk ROM: Can bring fingers closed to a fist and back out to full extension. EMG Nerve Study: IMPRESSION:? 1. 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 2. [id number] bilateral median neuropathy across carpal tunnel. 3. Bilateral Michel Shannon anastomosis. ? 12/31/2021 Psych Appearance: grossly normal Affect: normal affect Attitude: cooperative Assessment & Plan Assessment & Plan (1) Cubital tunnel syndrome of both upper extremities: Code(s): G56.23 - Lesion of ulnar nerve, bilateral upper limbs (2) Carpal tunnel syndrome on both sides: Code(s): G56.03 - Carpal tunnel syndrome, bilateral upper limbs (3) Diabetes mellitus: Code(s): E11.9 - Type 2 diabetes mellitus without complications Plan Assessment & Plan: 1. Right Cubital tunnel syndrome, severe With dense numbness & intrinsic wasting bilaterally 2. Right Carpal tunnel syndrome, mild-moderate With Dense numbness I educated him about these conditions I discussed treatment options I recommend surgery, I educated him on the risks of his sensation not fully returning post- operatively as he has dense numbness in his fingers. The risks and benefits of operative treatment were discussed with the patient and the patient wishes to proceed with surgery. These risks include, but are not limited to risk of damage to blood vessels, nerves, tendons, infection, recurrence, incomplete relief of preoperative symptoms, persistent pain, possible need for further surgery and the risks associated with regional blocks and anesthesia. The plan is to take the patient to the operating room sometime in the next few weeks for the following procedures: 1. Right Carpal tunnel release, under general 2. Right Cubital tunnel release vs transposition, under general All of the preoperative paperwork including the consent was filled out today. All the patient's questions were answered. The patient understands that they will be contacted by our mill order scheduler soon to schedule this procedure. He would like to have this done soon as he plans on travelling to the [facility] at the end of the summer. He denies blood thinners, asthma, lung, kidney issues He is a Diabetic, he says he is working hard on managing his Diabetes with new medication and physical activity. His most recent Hemoglobin A1c was ~7.2%, which has improved. He has CAD, HFrEF and an ICD. He recently had Cardiac clearance and instructions on how to proceed with his implanted Defibrillator at the time of surgery. He is low-intermediate risk, and a magnet should be placed over his defibrillator . 3. Left Carpal tunnel syndrome, S/P release 4. Left Cubital tunnel syndrome, S/P release DOS: 11/18/22 Pre-operatively with dense numbness Now with normal sensation in the median nerve distribution and good resolution of his symptoms He still has intrinsic wasting and numbness in the ulnar nerve distribution, but is still very happy with the results of his surgery. Scribed for Nilda Nixon MD by Dwight Richey, medical certification specialist, on 12/29/22 at 10:50 AM, EST. Coding Level of Care Code Est Pt Level 4 (68652) Diagnoses Cubital tunnel syndrome of both upper extremities G56.23 Carpal tunnel syndrome on both sides G56.03 Diabetes mellitus E11.9
[2022-12-29 10:31] VITALS: BMI 32.0
== END 2022-12-29 10:56 | disposition home or self-care (01) ==
PROVIDERS: PCP Registered Nurse; Visit Provider Orthopaedic Surgery
DX: G56.23 Lesion of ulnar nerve, bilateral upper limbs (principal); G56.03 Carpal tunnel syndrome, bilateral upper limbs; E11.9 Type 2 diabetes mellitus without complications; Z95.810 Presence of automatic (implantable) cardiac defibrillator
CPT/HCPCS: 99214

== ENCOUNTER → 2022-12-29 10:14 | Outpatient (BNVA) | payer OTHER, SELFPAY | PROVIDERS: PCP Registered Nurse; Visit Provider Orthopaedic Surgery | DX: G56.23 Lesion of ulnar nerve, bilateral upper limbs (principal); G56.03 Carpal tunnel syndrome, bilateral upper limbs; E11.9 Type 2 diabetes mellitus without complications | CPT/HCPCS: 99212 ==

== ENCOUNTER 2023-01-10 06:35 | Day surgery (SDC) | payer OTHER, SELFPAY ==
--- NOTE | 2023-01-07 10:54 | P.CONAN_ITS ---
HPI - Anesthesia Eval Consult details Narrative: 57yo M for Right Cubital Tunnel Release vs transposition, Right Carpal Tunnel Release s/p Left side 11/18/22 with GA-LMA 5 [place] [facility] [place] [facility] Active Problems Active Problems: All Active Problems (Updated 12/23/22 @ 11:59 by Amna Liu PA-C) Hypogonadism in male (Acute) Bilateral arm numbness and tingling while sleeping (Acute) Rotator cuff tear, left (Acute) Cervical spondylosis (Acute) Left shoulder pain (Acute) Diabetic neuropathy (Acute) Lipoma of back (Acute) Poor historian (Acute) RUQ pain (Acute) Acid reflux (Acute) Dysphagia (Acute) H. pylori infection (Acute) Sebaceous cyst (Acute) Bilateral neuropathy of upper extremities (Acute) Carpal tunnel syndrome (Acute) Cubital tunnel syndrome of both upper extremities (Acute) Erectile dysfunction associated with type 2 diabetes mellitus (Acute) Sebaceous cyst (Acute) Carpal tunnel syndrome on both sides (Acute) Postoperative infection (Acute) ICD (implantable cardioverter-defibrillator) in place (Acute) HFrEF (heart failure with reduced ejection fraction) (Acute) Nonischemic cardiomyopathy (Acute) HTN (hypertension) (Acute) Diabetes mellitus (Acute) CAD (coronary artery disease) (Acute) Past Medical History Medical History CAD (coronary artery disease) Diabetes mellitus HFrEF (heart failure with reduced ejection fraction) HTN (hypertension) ICD (implantable cardioverter-defibrillator) in place Nonischemic cardiomyopathy Family History Family History Father No problems noted. Mother No problems noted. Surgical History Surgical History H/O colonoscopy History of cardiac cath (~2017) History of carpal tunnel surgery Social History Social History Household Members: Spouse Alcohol intake: former Patient Tobacco Use Status: Former Tobacco user Second Hand Smoke Exposure: No Meds Allergies Allergy/AdvReac Type Severity Reaction Status Date / Time avocado [AVOCADO] Allergy Severe HIVES/SOB Verified 12/29/22 10:37 lisinopril Allergy Severe Unknown Verified 12/29/22 10:37 passion fruit [PASSION FRUIT] Allergy Severe HIVES/SOB Verified 12/29/22 10:37 sacubitril [Entresto] Allergy Severe Unknown Verified 12/29/22 10:37 valsartan [Entresto] Allergy Severe Unknown Verified 12/29/22 10:37 soy [SOY] Allergy Unknown SWELLING Verified 12/29/22 10:37 Home Medications Medication Instructions Recorded Confirmed Last Taken Type albuterol sulfate 90 mcg/actuation 1 inh inhalation Q4H PRN Shortness 10/13/20 12/23/22 11/18/22 History aerosol inhaler Of Breath cholecalciferol (vitamin D3) 50 50 mcg PO DAILY 10/13/20 12/23/22 Unknown History mcg (2,000 unit) capsule cyanocobalamin (vitamin B-12) 1,000 mcg PO DAILY 10/13/20 12/23/22 Unknown History 1,000 mcg tablet zolpidem 5 mg tablet 5 mg PO BEDTIME 10/13/20 12/23/22 Unknown History blood sugar diagnostic (FreeStyle #10 ea 08/05/21 12/23/22 Unknown History Lite Strips) lancets 33 gauge (TRUEplus Lancets) #100 ea 08/05/21 12/23/22 Unknown History empagliflozin 25 mg tablet 25 mg PO DAILY 04/21/22 12/23/22 Unknown History (Jardiance) quetiapine 50 mg tablet 50 mg PO BEDTIME 04/21/22 12/23/22 Unknown History acetaminophen 300 mg-codeine 60 mg 1 tab PO TID PRN 12/23/22 12/23/22 Unknown History tablet budesonide-formoterol HFA 160 2 puff inhalation BID 12/23/22 12/23/22 Unknown History mcg-4.5 mcg/actuation aerosol inhaler (Symbicort) citalopram 10 mg tablet 10 mg PO DAILY 12/23/22 12/23/22 Unknown History dulaglutide 1.5 mg/0.5 mL mg subcut 12/23/22 12/23/22 Unknown History subcutaneous pen injector (Trulicity) metformin 1,000 mg tablet 1,000 mg PO 12/23/22 12/23/22 Unknown History Exam Exam Date and Time: January 07, 2023 1054 Pertinent Lab Results Pertinent Lab Results: Laboratory Tests 01/25/22 10/21/22 09:25 09:31 WBC 11.6 H Hgb 16.8 Hct 53.1 H Plt Count 226 Sodium 140 Potassium 5.1 Chloride 103 Carbon Dioxide 28 BUN 19 H Creatinine 1.12 Narrative Narrative: Cardiac Device Check - HF monitor Details: Remote heart failure report generated 10/12/2022.? Heart failure parameters are stable Cardiac Device Check - ICD 04/2022 Details: Single-chamber Biotronik ICD in place.? Programmed in VVI at 40 beats per minute.? Atrial ventricular sensing is excellent.? Pacing and shock lead impedance is stable.? No ventricular pacing noted.? No arrhythmias noted.? Battery life is this could EKG 04/2022 Details: EKG shows normal sinus rhythm normal EKG ECHO 05/2022 Conclusions: - The left ventricular systolic function is low normal.? The ? ? visually estimated ejection fraction is between 50-55%.? - Mildly increased left ventricular cavity size. ? - No obvious valvular pathology seen on this study.? Assessment and Plan Assessment Anesthesia Assessment: Chart Reviewed
[2023-01-10 07:55] VITALS: BMI 32.0
[2023-01-10 08:01] VITALS: BP 136/75; PULSE 60; RESP 16; TEMP 36.4; O2SAT 94
[2023-01-10] MEDS: Lactated Ringers 1,000 ML 50 ML IVCONT (08:12)
[2023-01-10 08:14] LABS: Glucose, Whole Blood 145 mg/dL (60-115)
--- NOTE | 2023-01-10 08:52 | HO.ANESPROP2 ---
HPI - Anesthesia Eval Consult details Narrative: ? Details Cisto? is a 57 year-old male with past medical history of hypertension, hyperlipidemia, diabetes, CAD, nonischemic cardiomyopathy status post ICD, heart failure with reduced EF who presents for cubical tunnel PMFSH Active Problems Active Problems: All Active Problems (Updated 12/23/22 @ 11:59 by Amna Liu PA-C) Hypogonadism in male (Acute) Bilateral arm numbness and tingling while sleeping (Acute) Rotator cuff tear, left (Acute) Cervical spondylosis (Acute) Left shoulder pain (Acute) Diabetic neuropathy (Acute) Lipoma of back (Acute) Poor historian (Acute) RUQ pain (Acute) Acid reflux (Acute) Dysphagia (Acute) H. pylori infection (Acute) Sebaceous cyst (Acute) Bilateral neuropathy of upper extremities (Acute) Carpal tunnel syndrome (Acute) Cubital tunnel syndrome of both upper extremities (Acute) Erectile dysfunction associated with type 2 diabetes mellitus (Acute) Sebaceous cyst (Acute) Carpal tunnel syndrome on both sides (Acute) Postoperative infection (Acute) ICD (implantable cardioverter-defibrillator) in place (Acute) HFrEF (heart failure with reduced ejection fraction) (Acute) Nonischemic cardiomyopathy (Acute) HTN (hypertension) (Acute) Diabetes mellitus (Acute) CAD (coronary artery disease) (Acute) Past Medical History Medical History CAD (coronary artery disease) Diabetes mellitus HFrEF (heart failure with reduced ejection fraction) HTN (hypertension) ICD (implantable cardioverter-defibrillator) in place Nonischemic cardiomyopathy Family History Family History Father No problems noted. Mother No problems noted. Family history of problems with anesthesia: No Surgical History Surgical History H/O colonoscopy History of cardiac cath (~2017) History of carpal tunnel surgery History of Problems with Anesthesia: No Social History Social History Household Members: Spouse Alcohol intake: former Patient Tobacco Use Status: Former Tobacco user Second Hand Smoke Exposure: No Use of substances other than those prescribed or required for medical reasons: No Are you DNR?: No Advance Directives: No Advance Directives Information Provided: Yes Advance Directives on File: No Meds Allergies Allergy/AdvReac Type Severity Reaction Status Date / Time avocado [AVOCADO] Allergy Severe HIVES/SOB Verified 12/29/22 10:37 lisinopril Allergy Severe Unknown Verified 12/29/22 10:37 passion fruit [PASSION FRUIT] Allergy Severe HIVES/SOB Verified 12/29/22 10:37 sacubitril [Entresto] Allergy Severe Unknown Verified 12/29/22 10:37 valsartan [Entresto] Allergy Severe Unknown Verified 12/29/22 10:37 soy [SOY] Allergy Unknown SWELLING Verified 12/29/22 10:37 Active Medications: Current Medications Lactated Ringer's (Lr) 1,000 mls @ 50 mls/hr IVCONT .Q20H CHILANGO Last Admin: 01/10/23 08:12 Dose: 50 mls/hr Home Medications Medication Instructions Recorded Confirmed Last Taken Type albuterol sulfate 90 mcg/actuation 1 inh inhalation Q4H PRN Shortness 10/13/20 12/23/22 11/18/22 History aerosol inhaler Of Breath cholecalciferol (vitamin D3) 50 50 mcg PO DAILY 10/13/20 12/23/22 Unknown History mcg (2,000 unit) capsule cyanocobalamin (vitamin B-12) 1,000 mcg PO DAILY 10/13/20 12/23/22 Unknown History 1,000 mcg tablet zolpidem 5 mg tablet 5 mg PO BEDTIME 10/13/20 12/23/22 Unknown History blood sugar diagnostic (FreeStyle #10 ea 08/05/21 12/23/22 Unknown History Lite Strips) lancets 33 gauge (TRUEplus Lancets) #100 ea 08/05/21 12/23/22 Unknown History empagliflozin 25 mg tablet 25 mg PO DAILY 04/21/22 12/23/22 Unknown History (Jardiance) quetiapine 50 mg tablet 50 mg PO BEDTIME 04/21/22 12/23/22 Unknown History acetaminophen 300 mg-codeine 60 mg 1 tab PO TID PRN 12/23/22 12/23/22 Unknown History tablet budesonide-formoterol HFA 160 2 puff inhalation BID 12/23/22 12/23/22 Unknown History mcg-4.5 mcg/actuation aerosol inhaler (Symbicort) citalopram 10 mg tablet 10 mg PO DAILY 12/23/22 12/23/22 Unknown History dulaglutide 1.5 mg/0.5 mL mg subcut 12/23/22 12/23/22 Unknown History subcutaneous pen injector (Trulicity) metformin 1,000 mg tablet 1,000 mg PO 12/23/22 12/23/22 Unknown History Exam Exam Date and Time: January 10, 2023 0852 Height,Weight and Vital Signs: Height 5 ft 6 in Weight 89.811 kg Last Vital Signs Temp 97.6 F 01/10/23 08:01 Pulse 60 01/10/23 08:01 Resp 16 01/10/23 08:01 BP 136/75 01/10/23 08:01 Pulse Ox 94 01/10/23 08:01 O2 Del Method Room Air 01/10/23 08:01 Pertinent Lab Results Pertinent Lab Results: Laboratory Tests 01/10/23 08:11 POC Glucose 145 H Airway Mallampati Class: III TM Dist: >3cm Neck ROM: Full Heart: rrr Lungs: cta Assessment and Plan Final Anesthetic Review Family History of Problems with Anesthesia: No History of Problems with Anesthesia: No NPO: Yes ASA Class: III Final Preanesthetic Review: No Changes in Pt Med Stat, Meds/Allgs Chart Reviewed, Consent Obtained/Reviewed and Anes Risks/Benef Reviewed Patient Risk: Intermediate Procedure Risk: Low Anesthetic Plan Anesthetic Plan: GA Disposition: Standard PACU
--- NOTE | 2023-01-10 09:07 | MHC.SHP ---
Pre-Procedural Eval Section A Date of Service: 01/10/23 The patient is an INPATIENT: No Changes since office visit: No Cold of Flu in the past 2 weeks, No New Medical Problems, No Changes in Medication and No Patient answered all questions The History & Physical has been completed within 30 days and I have reviewed it.: Yes Section B Chief Complaint: lesion of ulnar nerve,carpal tunnel release Allergies: Allergies Allergy/AdvReac Type Severity Reaction Status Date / Time avocado [AVOCADO] Allergy Severe HIVES/SOB Verified 12/29/22 10:37 lisinopril Allergy Severe Unknown Verified 12/29/22 10:37 passion fruit [PASSION FRUIT] Allergy Severe HIVES/SOB Verified 12/29/22 10:37 sacubitril [Entresto] Allergy Severe Unknown Verified 12/29/22 10:37 valsartan [Entresto] Allergy Severe Unknown Verified 12/29/22 10:37 soy [SOY] Allergy Unknown SWELLING Verified 12/29/22 10:37 Plan I have reviewed the history and physical and performed a pertinent physical examination on my patient. No changes have occurred unless specified. Time Spent With Patient Time: Total time managing care of this patient today ____ minutes.
--- NOTE | 2023-01-10 09:07 | W.PM.OPN ---
Operative Note Operative Note Date of Service: 01/10/23 Narrative: Operative Note Narrative: Preop diagnosis: 1. Right Cubital tunnel syndrome with intrinsic wasting 2. Right carpal tunnel syndrome Postop diagnosis: Same Procedure: 1. right Cubital Tunnel Release 2. Right carpal tunnel release Surgeon: Nilda Nixon MD Anesthesia: General Anesthesia Findings: Thickening and fibrosis about the ulnar nerve at the cubital tunnel Implants: none Tourniquet time: 39 minutes EBL: 5.0 ml Specimen: none Drains: None Complications: None Disposition: Brought to the recovery room in stable condition Plan: Follow-up in 10-14 days for wound check, and suture removal Indications: The patient is 57 years old with right carpal tunnel syndrome, and right cubital tunnel syndrome with intrinsic wasting . The risks and benefits of operative treatment, including but not limited to risk of damage to blood vessels, nerves, tendons, infection, recurrence, persistent pain or numbness, incomplete resolution of preoperative symptoms, or need for further surgery were discussed with the patient and they wished to proceed with surgery. Procedure: Once consent was obtained patient was brought back to the operating suite and placed in the operating table in a supine position. Perioperative antibiotics and anesthesia was administered by the anesthesia team. The limb was prepped and draped in a standard surgical fashion, and a sterile tourniquet applied to the proximal aspect of the right upper extremity. The limb was elevated exsanguinated with Esmarch bandage and the tourniquet inflated to 250 mm of mercury for a total tourniquet time of 39 minutes. a 2.0 cm longitudinal incision was made centered over the right carpal tunnel. The incision was made through the skin to the subcutaneous tissues using a #15 blade. Dissection was made down to the level of the transverse carpal ligament with care being taken to protect the palmar cutaneous nerve. Once the transverse carpal ligament was clearly visualized, a longitudinal incision was made in the transverse carpal ligament 1st using a #15 blade, then using tenotomy scissors under direct visualization. Care was taken to look for and protect the motor branch of the median nerve when seen in this area. Once satisfied with our carpal tunnel release the wound was irrigated with normal saline. A 6 cm gently curved but longitudinally oriented incision was made centered over the cubital tunnel of the right upper extremity. Incision was made through the skin to the subcutaneous tissues using a # 15 Blade. I then dissected down to the level of the medial epicondyle and the cubital tunnel using tenotomy scissors. Care was taken to protect the lateral antebrachial cutaneous nerve. The ulnar nerve was identified just posterior to the medial intermuscular septum. The ulnar nerve was released in a proximal to distal direction using tenotomy in iris scissors while directly visualizing and protecting the ulnar nerve. Thickening and fibrosis was appreciated about the ulnar nerve as it passed through the cubital tunnel. The ulnar nerve was assessed as I passed the elbow through full flexion and extension and was found to remain stable within its groove. At this point the tourniquet was deflated and hemostasis obtained with a brief period of local pressure and bipolar electrocautery. The wound was copiously irrigated with normal saline. The subcutaneous layer was closed with 4-0 Vicryl suture, and the skin edges were reapproximated with 5-0 nylon suture. The wound was infiltrated with some 0.25% plain Marcaine for postop pain control and sterile dressings and a posterior splint was applied. The patient appears to have tolerated the procedure well and with no complications. All digits were well vascularized conclusion of the case.
[2023-01-10 11:03] VITALS: BP 153/86; PULSE 75; RESP 16; TEMP 36.5; O2SAT 95
--- NOTE | 2023-01-10 11:13 | HO.POSTANES ---
Post Anesthesia Evaluation Post Anesthesia Evaluation Date of Service: 01/10/23 Vital Signs: Vital Signs Temp Pulse Resp BP Pulse Ox O2 Del Method 01/10/23 11:03 97.7 F 75 16 153/86 H 95 Room Air 01/10/23 08:01 97.6 F 60 16 136/75 94 Room Air Anesthesia: General LMA Mental Status: Awake Pain Control: Satisfactory Nausea/Vomiting: None Hydration: Adequate Anesthesia-Related Issues: No Anes. Related Issues
[2023-01-10 11:18] VITALS: BP 139/79; PULSE 75; RESP 16; O2SAT 95
[2023-01-10 11:33] VITALS: BP 133/76; PULSE 78; RESP 16; O2SAT 95
[2023-01-10 11:48] VITALS: BP 128/70; PULSE 79; RESP 16; TEMP 36.3; O2SAT 94
== END 2023-01-10 12:40 | disposition home or self-care (01) ==
PROVIDERS: PCP Registered Nurse; Visit Provider Orthopaedic Surgery
PROC: (CPT 64718; principal; 2023-01-10 08:40)
PROC: (CPT 64721; 2023-01-10 08:40)
DX: G56.01 Carpal tunnel syndrome, right upper limb (principal); G56.21 Lesion of ulnar nerve, right upper limb; R20.0 Anesthesia of skin; E11.9 Type 2 diabetes mellitus without complications; I25.10 Atherosclerotic heart disease of native coronary artery without angina pectoris; I11.0 Hypertensive heart disease with heart failure; I50.20 Unspecified systolic (congestive) heart failure; Z95.810 Presence of automatic (implantable) cardiac defibrillator; I42.8 Other cardiomyopathies; E78.5 Hyperlipidemia, unspecified; Z79.82 Long term (current) use of aspirin; Z79.84 Long term (current) use of oral hypoglycemic drugs; Z79.85 Long-term (current) use of injectable non-insulin antidiabetic drugs; Z79.899 Other long term (current) drug therapy; Z88.8 Allergy status to other drugs, medicaments and biological substances; Z87.891 Personal history of nicotine dependence
CPT/HCPCS: 64721; 64718; 82947; J0690; J2250; J3010

== ENCOUNTER → 2023-01-10 06:35 | Outpatient (BNV) | payer OTHER, SELFPAY | PROVIDERS: PCP Registered Nurse; Visit Provider Orthopaedic Surgery | DX: G56.01 Carpal tunnel syndrome, right upper limb (principal); G56.21 Lesion of ulnar nerve, right upper limb | CPT/HCPCS: 64718; 64721 ==

== ENCOUNTER → 2023-01-10 23:59 | Outpatient (BNV) | payer OTHER, SELFPAY ==
--- NOTE | 2023-01-19 14:59 | MHC.OFFVIS ---
Intake Intake Visit Reasons: Remote ICD Check- [employer] Allergies avocado [AVOCADO] Allergy (Severe, Verified 12/29/22 10:37) HIVES/SOB lisinopril Allergy (Severe, Verified 12/29/22 10:37) Unknown passion fruit [PASSION FRUIT] Allergy (Severe, Verified 12/29/22 10:37) HIVES/SOB sacubitril [Entresto] Allergy (Severe, Verified 12/29/22 10:37) Unknown valsartan [Entresto] Allergy (Severe, Verified 12/29/22 10:37) Unknown soy [SOY] Allergy (Unknown, Verified 12/29/22 10:37) SWELLING [facility] Medical History CAD (coronary artery disease) Diabetes mellitus HFrEF (heart failure with reduced ejection fraction) HTN (hypertension) ICD (implantable cardioverter-defibrillator) in place Nonischemic cardiomyopathy Surgical History H/O colonoscopy History of cardiac cath (~2017) History of carpal tunnel surgery Family History Father No problems noted. Mother No problems noted. Social History Household Members: Spouse Alcohol intake: former Patient Tobacco Use Status: Former Tobacco user Second Hand Smoke Exposure: No Office Procedures Cardiac Device Check Cardiac Device Check Details: Remote ICD report generated 01/10/2023. ICD function is adequate [id number] Cardiac Interrogation, implant defibrillator w/interim Procedure code (CPT) selection complete Coding Level of Care Code Procedure Only Diagnoses CPT Codes Cardiac Device Check - Cardiac Device 13: [id number] Cardiac Interrogation, implant defibrillator w/interim ([id number])
== END ==
PROVIDERS: PCP Registered Nurse; Visit Provider Internal Medicine Cardiovascular Disease
DX: I42.8 Other cardiomyopathies (principal); Z95.810 Presence of automatic (implantable) cardiac defibrillator
CPT/HCPCS: 93295

== ENCOUNTER → 2023-01-11 23:59 | Outpatient (BNV) | payer OTHER, SELFPAY ==
--- NOTE | 2023-01-19 14:43 | MHC.OFFVIS ---
Intake Intake Visit Reasons: Remote HF Monitoring- [employer] Allergies avocado [AVOCADO] Allergy (Severe, Verified 12/29/22 10:37) HIVES/SOB lisinopril Allergy (Severe, Verified 12/29/22 10:37) Unknown passion fruit [PASSION FRUIT] Allergy (Severe, Verified 12/29/22 10:37) HIVES/SOB sacubitril [Entresto] Allergy (Severe, Verified 12/29/22 10:37) Unknown valsartan [Entresto] Allergy (Severe, Verified 12/29/22 10:37) Unknown soy [SOY] Allergy (Unknown, Verified 12/29/22 10:37) SWELLING [facility] Medical History CAD (coronary artery disease) Diabetes mellitus HFrEF (heart failure with reduced ejection fraction) HTN (hypertension) ICD (implantable cardioverter-defibrillator) in place Nonischemic cardiomyopathy Surgical History H/O colonoscopy History of cardiac cath (~2017) History of carpal tunnel surgery Family History Father No problems noted. Mother No problems noted. Social History Household Members: Spouse Alcohol intake: former Patient Tobacco Use Status: Former Tobacco user Second Hand Smoke Exposure: No Office Procedures Cardiac Device Check Cardiac Device Check Details: Remote heart failure report generated 01/11/2023. Heart failure parameters are stable [id number] Cardiac Device Interrogation, cardio physiologic monitor Procedure code (CPT) selection complete Coding Level of Care Code Procedure Only Diagnoses CPT Codes Cardiac Device Check - Cardiac Device 15: [id number] Cardiac Device Interrogation, cardio physiologic monitor ([id number])
== END ==
PROVIDERS: PCP Registered Nurse; Visit Provider Internal Medicine Cardiovascular Disease
DX: I50.20 Unspecified systolic (congestive) heart failure (principal); Z95.810 Presence of automatic (implantable) cardiac defibrillator
CPT/HCPCS: 93297

== ENCOUNTER 2023-01-26 12:04 | Outpatient (AMB) | payer OTHER, SELFPAY ==
--- NOTE | 2023-01-26 12:25 | A.OFFVIS_ITS ---
Intake Intake Visit Reasons: PO Rt cubital TR vs transposition, ER LENS AND FRAMES PRESCRIPTION CLERK Intake Note: Andry 57 yr old male presents today for his P/O visit for his right CTR and Cubital release from 01/10/23. States his numbness has improved. States he has soreness in his incision. Allergies avocado [AVOCADO] Allergy (Severe, Verified 01/26/23 12:43) HIVES/SOB lisinopril Allergy (Severe, Verified 01/26/23 12:43) Unknown passion fruit [PASSION FRUIT] Allergy (Severe, Verified 01/26/23 12:43) HIVES/SOB sacubitril [Entresto] Allergy (Severe, Verified 01/26/23 12:43) Unknown valsartan [Entresto] Allergy (Severe, Verified 01/26/23 12:43) Unknown soy [SOY] Allergy (Unknown, Verified 01/26/23 12:43) SWELLING HPI PO Rt cubital TR vs transposition, ER LENS AND FRAMES PRESCRIPTION CLERK HPI Details Andry is a 57 year old left hand dominant man who presents S/P right carpal & cubital tunnel release, DOS: 01/10/23. He is S/P left carpal tunnel & cubital tunnel release, DOS: 11/18/22. He says he is doing well and he is very happy that his numbness has improved somewhat. In regards to his left hand, he says his sensation is normal to all digits except his small finger, which is still numb but improved. He is very happy with the results of his surgery. He says he is under stress due to medical comorbidities and due to his being ill and recovering from multiple surgeries. He has a Hx of Diabetes, CAD, HFrEF and an ICD. He stays active with walking frequently, but the majority of his time is spent on caring for his & mother due to their medical issues.? [facility] Medical History CAD (coronary artery disease) Diabetes mellitus HFrEF (heart failure with reduced ejection fraction) HTN (hypertension) ICD (implantable cardioverter-defibrillator) in place Nonischemic cardiomyopathy Surgical History H/O colonoscopy History of cardiac cath (~2017) History of carpal tunnel surgery Family History Father No problems noted. Mother No problems noted. Social History Household Members: Spouse Alcohol intake: former Patient Tobacco Use Status: Former Tobacco user Second Hand Smoke Exposure: No Review of Systems Const All systems reviewed & are unremarkable except as noted in HPI and below Physical Exam Const General: no acute distress and alert Orientation/consciousness: patient oriented x3 Neuro General: patient oriented x3 Extrem Other: The patient was alert oriented and in no acute distress The incision is healing well with no erythema drainage or evidence of infection. Sutures removed and Steri-Strips applied He can make a fist and extend all his digits No locking or catching Improved but not yet normal sensation in the median nerve distribution of the right hand. Improved but not yet normal sensation in the ulnar nerve distribution of the right hand With intrinsic wasting and no thenar wasting Difficulty with finger cross on the right Weak ABduction and ADduction Normal sensation to the median nerve distribution of the left hand. Sensation in the left small finger improved but not yet normal. Cap refill is brisk EMG Nerve Study: IMPRESSION:? 1. 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 2. [id number] bilateral median neuropathy across carpal tunnel. 3. Bilateral Michle Shannon anastomosis. ? 12/31/2021 Psych Appearance: grossly normal Affect: normal affect Attitude: cooperative Assessment & Plan Assessment & Plan (1) Cubital tunnel syndrome of both upper extremities: Code(s): G56.23 - Lesion of ulnar nerve, bilateral upper limbs (2) Carpal tunnel syndrome on both sides: Code(s): G56.03 - Carpal tunnel syndrome, bilateral upper limbs (3) Diabetes mellitus: Code(s): E11.9 - Type 2 diabetes mellitus without complications Plan Assessment & Plan: 1. Right Cubital tunnel syndrome, S/P release Pre-operatively with dense numbness & intrinsic wasting Now with improved but not yet normal sensation 2. Right Carpal tunnel syndrome, S/P release Pre-operatively with dense numbness Now with improved but not yet normal sensation The patient appears to be doing well post-operatively I educated him about the post-operative course I discussed activity modifications, he is to lift nothing heavier than a cellphone for the next two weeks He will perform gentle ROM exercises at home He should avoid any underwater activities for the next 5 days He should gently massage about the incision site to reduce the risk of hypersensitivity He can follow up prn 3. Left Carpal tunnel syndrome, S/P release 4. Left Cubital tunnel syndrome, S/P release DOS: 11/18/22 Pre-operatively with dense numbness Now with normal sensation in the median nerve distribution and good resolution of his symptoms He still has intrinsic wasting and numbness in the ulnar nerve distribution, but is still very happy with the results of his surgery. Scribed for Nilda Nixon MD by Dwight Richey, medical underwriter, on 01/26/23 at 12:40 PM, EST. Coding Level of Care Code Global (25442) Diagnoses Cubital tunnel syndrome of both upper extremities G56.23 Carpal tunnel syndrome on both sides G56.03 Diabetes mellitus E11.9
== END 2023-01-26 12:43 | disposition home or self-care (01) ==
PROVIDERS: PCP Registered Nurse; Visit Provider Orthopaedic Surgery
DX: G56.23 Lesion of ulnar nerve, bilateral upper limbs (principal); G56.03 Carpal tunnel syndrome, bilateral upper limbs; E11.9 Type 2 diabetes mellitus without complications
CPT/HCPCS: 99024

== ENCOUNTER → 2023-01-26 12:04 | Outpatient (BNVA) | payer OTHER, SELFPAY | PROVIDERS: PCP Registered Nurse; Visit Provider Orthopaedic Surgery ==

== ENCOUNTER 2023-02-03 11:18 | Outpatient (AMB) | payer OTHER, SELFPAY ==
--- NOTE | 2023-02-03 11:21 | MHC.OFFVIS ---
Intake Vital Signs 02/03/23 11:24 Height 5 ft 6.5 in Weight 197 lb BMI 31.3 BP 100/59 L Blood Pressure Location Lt brachial Position Sitting Pulse 64 Intake Visit Reasons: 6 week fu Intake Note: Andry presents in the office as a 6 week follow up. CC: He states that he is not having any concerns today Allergies avocado [AVOCADO] Allergy (Severe, Verified 02/03/23 11:24) HIVES/SOB lisinopril Allergy (Severe, Verified 02/03/23 11:24) Unknown passion fruit [PASSION FRUIT] Allergy (Severe, Verified 02/03/23 11:24) HIVES/SOB sacubitril [Entresto] Allergy (Severe, Verified 02/03/23 11:24) Unknown valsartan [Entresto] Allergy (Severe, Verified 02/03/23 11:24) Unknown soy [SOY] Allergy (Unknown, Verified 02/03/23 11:24) SWELLING Medication List - Last Reconciled 02/03/23 by Amna Liu PA-C acetaminophen-codeine 300-60 mg 1 tab PO TID PRN albuterol sulfate 90 mcg/actuation 1 inh inhalation Q4H PRN aspirin 81 mg PO QAM atorvastatin 40 mg PO BEDTIME blood sugar diagnostic (FreeStyle Lite Strips) As directed budesonide-formoterol 160-4.5 mcg/actuation (Symbicort) 2 puffs inhalation BID carvedilol 25 mg PO BID cholecalciferol (vitamin D3) 50 mcg PO DAILY citalopram 10 mg PO DAILY cyanocobalamin (vitamin B-12) 1,000 mcg PO DAILY diclofenac sodium 1% (Arthritis Pain (diclofenac)) 4 grams topical QID PRN 30 days dulaglutide (Trulicity) mg subcut empagliflozin (Jardiance) 25 mg PO DAILY esomeprazole magnesium (Nexium) 40 mg PO TID 14 days furosemide 40 mg PO QAM gabapentin TAKE 1 CAPSULE BY MOUTH AT BEDTIME hydralazine 50 mg PO BID insulin syringe-needle U-100 (BD Insulin Syringe) Use once a week to inject testosterone lancets (TRUEplus Lancets) As directed metformin 1,000 mg PO omeprazole 20 mg PO DAILY oxycodone 5 mg PO Q6H PRN oxycodone-acetaminophen 5-325 mg 1 tab PO Q6H PRN quetiapine 50 mg PO BEDTIME sildenafil 100 mg PO DAILY PRN 30 days testosterone cypionate 80 mg (0.4 mL) subcut QWEEK 28 days zolpidem 5 mg PO BEDTIME HPI HPI Comments History of Present Illness Details A 57 y/o male with dysphagia-f/u-he has made dietary changes as well as more cautious when he does eat that he tries to eat a softer diet and chew very well. He has not had any dentures in many months, excited about getting dentures- being fitted currently He has not yet been scheduled for barium swallow He has no nausea, vomiting, hematemesis, hematochezia, fever chills PFSH Medical History CAD (coronary artery disease) Diabetes mellitus HFrEF (heart failure with reduced ejection fraction) HTN (hypertension) ICD (implantable cardioverter-defibrillator) in place Nonischemic cardiomyopathy Surgical History H/O colonoscopy History of cardiac cath (~2017) History of carpal tunnel surgery Family History Father No problems noted. Mother No problems noted. Social History Household Members: Spouse Alcohol intake: former Patient Tobacco Use Status: Former Tobacco user Second Hand Smoke Exposure: No Review of Systems Const All systems reviewed & are unremarkable except as noted in HPI and below ENT Reports dysphagia (no dentures) Card Denies chest pain and Denies dyspnea Resp Denies dyspnea GI Denies abdominal pain, Reports dysphagia (no dentures), Denies nausea and Denies vomiting Physical Exam Vital Signs: Last Vital Signs Pulse 64 02/03/23 11:24 BP 100/59 L 02/03/23 11:24 BMI result Body Mass Index 31.3 Const General: cooperative, healthy appearing and comfortable Orientation/consciousness: patient oriented x3 Limitations: no limitations Eyes Sclerae: sclerae normal Resp Effort & Inspection: normal respiratory effort and able to speak in complete sentences Neuro General: patient oriented x3 Extrem General: Yes full ROM Psych Appearance: grossly normal and well kempt Mental Status: mental status grossly normal Speech and movement: Normal speech and movement present and Clear speech present Affect: normal affect Attitude: cooperative Thought process: Normal thought process present Thought content: Normal thought content present Insight: Good insight present (Psych) Judgement: Good judgement present (Psych) Assessment & Plan Assessment & Plan (1) Dysphagia: Comment: dysphagia/gastro paresis, diabetic male Eat slowly chews food well barium swallow- still awaiting No teeth, no dentures likely plays a role-currently being fit Code(s): R13.10 - Dysphagia, unspecified (2) ICD (implantable cardioverter-defibrillator) in place: Comment: implanted 2018-[employer] Code(s): Z95.810 - Presence of automatic (implantable) cardiac defibrillator Patient Instructions: Pleasant 57-year-old male CAD defer related or, with dysphagia-likely not having dentures plays a role Reinforced eating slowly, chewing well, Await barium study Will follow-up, encouraged to call with questions or concerns Coding Level of Care Code Est Pt Level 3 (35890) Diagnoses Dysphagia R13.10 ICD (implantable cardioverter-defibrillator) in place Z95.810 Time Spent (min) 30
[2023-02-03 11:24] VITALS: BP 100/59; PULSE 64; BMI 31.3
== END 2023-02-03 12:42 | disposition home or self-care (01) ==
PROVIDERS: PCP Registered Nurse; Visit Provider Physician Assistant
DX: R13.10 Dysphagia, unspecified (principal); Z95.810 Presence of automatic (implantable) cardiac defibrillator
CPT/HCPCS: 99213

== ENCOUNTER → 2023-02-03 11:18 | Outpatient (BNVA) | payer OTHER, SELFPAY | PROVIDERS: PCP Registered Nurse; Visit Provider Physician Assistant | DX: R13.10 Dysphagia, unspecified (principal); Z95.810 Presence of automatic (implantable) cardiac defibrillator | CPT/HCPCS: 99212 ==

== ENCOUNTER → 2023-02-14 23:59 | Outpatient (BNV) | payer OTHER, SELFPAY ==
--- NOTE | 2023-02-14 15:06 | MHC.OFFVIS ---
Intake Intake Visit Reasons: Remote HF Monitoring- Biotronik Allergies avocado [AVOCADO] Allergy (Severe, Verified 02/03/23 11:24) HIVES/SOB lisinopril Allergy (Severe, Verified 02/03/23 11:24) Unknown passion fruit [PASSION FRUIT] Allergy (Severe, Verified 02/03/23 11:24) HIVES/SOB sacubitril [Entresto] Allergy (Severe, Verified 02/03/23 11:24) Unknown valsartan [Entresto] Allergy (Severe, Verified 02/03/23 11:24) Unknown soy [SOY] Allergy (Unknown, Verified 02/03/23 11:24) [facility] Medical History CAD (coronary artery disease) Diabetes mellitus HFrEF (heart failure with reduced ejection fraction) HTN (hypertension) ICD (implantable cardioverter-defibrillator) in place Nonischemic cardiomyopathy Surgical History H/O colonoscopy History of cardiac cath (~2017) History of carpal tunnel surgery Family History Father No problems noted. Mother No problems noted. Social History Household Members: Spouse Alcohol intake: former Patient Tobacco Use Status: Former Tobacco user Second Hand Smoke Exposure: No Office Procedures Cardiac Device Check Cardiac Device Check Details: Remote heart failure report generated 02/14/2023. Heart failure parameters are stable [id number] Cardiac Device Interrogation, cardio physiologic monitor Procedure code (CPT) selection complete Coding Level of Care Code Procedure Only Diagnoses CPT Codes Cardiac Device Check - Cardiac Device 15: [id number] Cardiac Device Interrogation, cardio physiologic monitor ([id number])
== END ==
PROVIDERS: PCP Registered Nurse; Visit Provider Internal Medicine Cardiovascular Disease
DX: I50.20 Unspecified systolic (congestive) heart failure (principal); Z95.810 Presence of automatic (implantable) cardiac defibrillator
CPT/HCPCS: 93297

== ENCOUNTER 2023-02-25 10:17 | Outpatient (REF) | payer OTHER, SELFPAY | END 2023-02-25 10:18 | disposition home or self-care (01) | LOC: HO.XRAY 10:17 | PROVIDERS: PCP Registered Nurse; Visit Provider Physician Assistant | DX: Z13.89 Encounter for screening for other disorder (principal) ==

== ENCOUNTER 2023-02-28 10:16 | Outpatient (REF) | payer OTHER, SELFPAY ==
--- NOTE | ~2023-02-28 | FL_ITS ---
EXAMINATION: Modified BARIUM SWALLOW CLINICAL INFORMATION: Dysphagia . COMPARISON: None available. TECHNIQUE: Routine modified barium swallow was performed in upright lateral fluoroscopy view with speech therapist. FINDINGS: On oral administration of various consistencies of barium under lateral fluoroscopy there is normal propagation of bolus from the oral cavity through the pharynx into esophagus without obstruction or narrowing. No laryngeal penetration or aspiration. No retention of barium in the valleculae or piriform sinuses. FLUOROSCOPY TIME: 1.1 minute DOSE AREA PRODUCT: 2.514 uGy-m2 (microgray-meter squared) FL/FL barium swallow modified IMPRESSION: Successful fluoroscopy-guided modified modified barium swallow exam was performed.
--- NOTE | 2023-02-28 13:59 | MHC.SL.IMP ---
Date of Plan of Treatment: 02/28/23 Onset of Symptoms/Illness: 02/28/23 Date Treatment Started: 02/28/23 Admitting Diagnosis: Dysphagia, unspecified (R13.10) Primary Speech & Language Diagnosis: R13.14 Pharyngoesophageal Phase Dysphagia Reason for Today's Visit: 13581 Modified Barium Swallow Study Pre-evaluation Dietary Consistencies: Regular Pre-evaluation Liquid Consistency: Thin Pre-evaluation Medication Administration: Whole with Liquid Medical History: Acid Reflux Oral Motor Exam Facial Symmetry: Symmetrical Facial Movement: Oral-Facial Facial Miscellaneous Observations: Mouth Occlusion: Normal Oral-Facial Teeth Characteristics: Edentulous Oral-Facial Teeth Miscellaneous Observation: Pt reports he will be getting his dentures this coming Tuesday. Oral Expression Ability: No Impairment Is patient able to manage secretions?: Yes Is patient able to produce volitional cough?: Yes Food and Liquid Trials: Oral Impairment: Lip Closure: 0=No labial escape Oral Impairment: Tongue Control During Bolus Hold: 0=Cohesive bolus between tongue to palatal seal Oral Impairment: Bolus Preparation/Mastication: 1=Slow prolonged chewing/mashing with complete re-collection Oral Impairment: Bolus Transport/Lingual Motion: 0=Brisk tongue motion Oral Impairment: Oral Residue: 1=Trace residue lining oral structures Oral Impairment:Initiation of Pharyngeal Swallow: 2=Bolus head at posterior laryngeal surface of epiglottis Pharyngeal Impairment: Soft Palate Elevation: 0=No bolus between soft palate (SP)/pharyngeal wall (PW) Pharyngeal Impairment: Laryngeal Elevation: 0=Complete superior movement of thyroid cartilage (see description) Pharyngeal Impairment: Anterior Hyoid Excursion: 0=Complete anterior movement Pharyngeal Impairment: Epiglottic Movement: 0=Complete inversion Pharyngeal Impairment: Laryngeal Vestibular Closure:: 1=Incomplete: narrow column air/contrast in laryngeal vestibule Pharyngeal Impairment: Pharyngeal Stripping Wave: 0=Present: complete Pharyngeal Impairment: Pharyngeal Contraction: Did not test Pharyngeal Impairment: Pharyngoesophageal Segment Openin=Partial distention/partial duration: partial obstruction of flow Pharyngeal Impairment: Tongue Base (TB) Retraction: 1=Trace column of contrast/air between TB and posterior PW Pharyngeal Impairment: Pharyngeal Residue: 1=Trace residue within or on pharyngeal structures Pharyngeal Impairment: Esophageal Clearance Upright Position: Did not test Impressions and Recommendations Clinical Observations: [place], [place] Modified Barium Swallow Study Fluoroscopic Evaluation of Swallowing Function CPT Code 37940 Evaluation Year: 2022 Evaluating Clinician: Isiah Paula MA, CCC-HOME AIDE Study Number: 1 Patient Name: Age: 58 Gender: Male MEDICAL HISTORY: Primary (admitting) Diagnosis: Dysphagia, unspecified (R13.10) COVID-19 Positive: No Current (pre-evaluation) Intake/Diet: Pre-Study Functional Oral Intake Scale (FOIS): 7- Total oral intake with no restrictions MBSImP ID: [id number] Results: Lip closure for intraoral bolus containment resulted in no labial escape. Tongue control during bolus hold maintained a cohesive bolus held between tongue to palate seal. Bolus preparation and mastication resulted in slow, prolonged chewing/mashing but with complete re-collection. Bolus transport/lingual motion was with brisk tongue motion. Oral residue was a trace, lining oral structures. Initiation of the pharyngeal swallow occurred as the bolus head was at the posterior laryngeal surface of the epiglottis. Soft palate elevation resulted in no bolus between the soft palate and the pharyngeal wall. Laryngeal elevation demonstrated complete superior movement of the thyroid cartilage with complete approximation of the arytenoids to the epiglottic petiole. Anterior hyoid excursion demonstrated complete anterior movement. Epiglottic movement resulted in complete inversion. Laryngeal vestibular closure was incomplete, with a narrow column of air/contrast noted within the laryngeal vestibule at the height of the swallow. Pharyngeal stripping wave was present and complete. Pharyngeal contraction could not be determined due to logistical reasons not related to physiologic impairment. Pharyngoesophageal segment opening demonstrated partial distension/partial duration, with partial obstruction of bolus flow. Tongue base retraction allowed a trace column of contrast or air between the retracted tongue base and the posterior pharyngeal wall. Pharyngeal residue was a trace within or on pharyngeal structures. Esophageal clearance in the upright position could not be assessed due to logistical reasons not related to physiologic impairment. Oral Impairment Score: 3 Pharyngeal Impairment Score: 2 (absence of score, component 13) Esophageal Impairment Score: --- (absence of score, component 17) Laryngeal Penetration and Aspiration: Penetration was observed in today's study. Thin Contrast entered the airway, remained above the vocal folds, and was ejected from the airway. Liquid Intake Recommendation: Thin Liquid Intake Strategies: Dietary Recommendations: Regular Medication Administration: Whole with Liquid Please contact the pharmacy regarding appropriate crushable or liquid drug formulations that are available whenever modified delivery is recommended. Compensatory Strategies Recommended: Sitting Upright (90 deg) Small Bites and Sips Alternate Liquids/Solids Supervision during eating and or drinking: None Needed Recommended Treatments: Compens. Strategy Educat. Recommendation for Speech Therapy: NA:Typical Evaluation Text Comment: Summary: Mr. Lehman was provided thin barium, barium paste and regular solid coated in barium. Flash penetration was noted with thin liquids via consecutive straw sip. With Puree and Regular solid he presented with a mild CP bar during relaxation of the upper esophageal sphincter. There was also delayed clearance of the distal esophagus with regular solids on an esophageal screen conducted by the attending radiologist. Pt was counseled on results and provided recommendations for esophageal dysphagia including remaining upright before and after meals, chewing food well, alternating bites/sips, smaller more frequent meals. He is getting new dentures this week he reports, which may reduce symptoms for regular solids spontaneously. Further testing could include full Esophagram v EGD, as recommended by his GI specialist. It is important to note MBSS objective studies are snapshots in time and Patient function might vary with factors such as time of day or concomitant medical conditions. For this reason, the final treatment plan for this patient should rest with their medical care team. Additional recommendations should be considered with the totality of the Patient in mind. Thank for the opportunity to participate in the care of this patient. If you have any questions about the content of this report, please contact the [facility] at [facility]. Timeline to reassess: PRN Rental Clerk [employer] Equipment Clinician/Clinical Fellow: No Supervisory Statement: N/A Speech Language Pathologist: Isiah Paula M.A., [facility]-HOME AIDE
== END 2023-02-28 10:17 | disposition home or self-care (01) ==
LOC: HO.XRAY 10:16
PROVIDERS: PCP Registered Nurse; Visit Provider Physician Assistant
DX: R13.14 Dysphagia, pharyngoesophageal phase (principal)
CPT/HCPCS: 74230; 92611

== ENCOUNTER → 2023-02-28 10:18 | Outpatient (BNV) | payer OTHER, SELFPAY | PROVIDERS: PCP Registered Nurse; Visit Provider Radiology Diagnostic Radiology | DX: R13.10 Dysphagia, unspecified (principal) | CPT/HCPCS: 74230 ==

== ENCOUNTER → 2023-03-17 23:59 | Outpatient (BNV) | payer OTHER, SELFPAY ==
--- NOTE | 2023-03-17 09:37 | A.OFFVIS_ITS ---
Intake Intake Visit Reasons: Remote HF Monitoring- [employer] Allergies avocado [AVOCADO] Allergy (Severe, Verified 02/03/23 11:24) HIVES/SOB lisinopril Allergy (Severe, Verified 02/03/23 11:24) Unknown passion fruit [PASSION FRUIT] Allergy (Severe, Verified 02/03/23 11:24) HIVES/SOB sacubitril [Entresto] Allergy (Severe, Verified 02/03/23 11:24) Unknown valsartan [Entresto] Allergy (Severe, Verified 02/03/23 11:24) Unknown soy [SOY] Allergy (Unknown, Verified 02/03/23 11:24) [facility] Medical History CAD (coronary artery disease) Diabetes mellitus HFrEF (heart failure with reduced ejection fraction) HTN (hypertension) ICD (implantable cardioverter-defibrillator) in place Nonischemic cardiomyopathy Surgical History H/O colonoscopy History of cardiac cath (~2017) History of carpal tunnel surgery Family History Father No problems noted. Mother No problems noted. Social History Household Members: Spouse Alcohol intake: former Patient Tobacco Use Status: Former Tobacco user Second Hand Smoke Exposure: No Office Procedures Cardiac Device Check Cardiac Device Check Details: Remote heart failure report generated 03/17/2023. Heart failure parameters are stable [id number] Cardiac Device Interrogation, cardio physiologic monitor Procedure code (CPT) selection complete Coding Level of Care Code Procedure Only CPT Codes Cardiac Device Check - Cardiac Device 15: [id number] Cardiac Device Interrogation, cardio physiologic monitor ([id number])
== END ==
PROVIDERS: PCP Registered Nurse; Visit Provider Internal Medicine Cardiovascular Disease
DX: I50.20 Unspecified systolic (congestive) heart failure (principal); Z95.810 Presence of automatic (implantable) cardiac defibrillator
CPT/HCPCS: 93297

== ENCOUNTER → 2023-04-11 23:59 | Outpatient (BNV) | payer OTHER, SELFPAY ==
--- NOTE | 2023-04-11 16:31 | MHC.OFFVIS ---
Intake Intake Visit Reasons: Remote ICD Check- [employer] Allergies avocado [AVOCADO] Allergy (Severe, Verified 02/03/23 11:24) HIVES/SOB lisinopril Allergy (Severe, Verified 02/03/23 11:24) Unknown passion fruit [PASSION FRUIT] Allergy (Severe, Verified 02/03/23 11:24) HIVES/SOB sacubitril [Entresto] Allergy (Severe, Verified 02/03/23 11:24) Unknown valsartan [Entresto] Allergy (Severe, Verified 02/03/23 11:24) Unknown soy [SOY] Allergy (Unknown, Verified 02/03/23 11:24) [facility] Medical History CAD (coronary artery disease) Diabetes mellitus HFrEF (heart failure with reduced ejection fraction) HTN (hypertension) ICD (implantable cardioverter-defibrillator) in place Nonischemic cardiomyopathy Surgical History H/O colonoscopy History of cardiac cath (~2017) History of carpal tunnel surgery Family History Father No problems noted. Mother No problems noted. Social History Household Members: Spouse Alcohol intake: former Patient Tobacco Use Status: Former Tobacco user Second Hand Smoke Exposure: No Office Procedures Cardiac Device Check Cardiac Device Check Details: Remote ICD report generated 04/11/2023. ICD function is adequate [id number] Cardiac Interrogation, implant defibrillator w/interim Procedure code (CPT) selection complete Coding Level of Care Code Procedure Only CPT Codes Cardiac Device Check - Cardiac Device 13: [id number] Cardiac Interrogation, implant defibrillator w/interim ([id number])
== END ==
PROVIDERS: PCP Registered Nurse; Visit Provider Internal Medicine Cardiovascular Disease
DX: I42.9 Cardiomyopathy, unspecified (principal); Z95.810 Presence of automatic (implantable) cardiac defibrillator
CPT/HCPCS: 93295

== ENCOUNTER 2023-04-26 09:45 | Outpatient (REF) | payer OTHER, SELFPAY ==
[2023-04-26 11:28] LABS: Hemoglobin 17.6 g/dl (14.0-18.0); Mean Corpuscular HGB Conc 31.2 g/dl (31.0-36.0); Mean Corpuscular Volume 86.7 fL (80.0-98.0); Platelet Count 253 X10*3/uL (160-400); Red Blood Count 6.52 X10*6/uL (4.60-5.80); Red Cell Distribution Width 17.2 % (11.0-16.0); White Blood Count 9.6 X10*3/uL (4.8-10.8)
[2023-04-26 11:31] LABS: Hematocrit 56.5 % (42.0-52.0)
[2023-04-26 12:09] LABS: Prostate Specific Antigen 0.36 ng/mL (<0.05-4.0)
[2023-05-02 14:58] LABS: Testosterone, Total 294 ng/dL (250-1100)
== END 2023-04-26 09:46 | disposition home or self-care (01) ==
LOC: HO.HHCL 09:45
PROVIDERS: Visit Provider Urology
DX: E29.1 Testicular hypofunction (principal); Z12.5 Encounter for screening for malignant neoplasm of prostate
CPT/HCPCS: 36415; 84153; 84403; 85027

== ENCOUNTER → 2023-05-02 23:59 | Outpatient (BNV) | payer OTHER, SELFPAY ==
--- NOTE | 2023-05-02 12:02 | MHC.OFFVIS ---
Intake Intake Visit Reasons: Remote HF Monitoring- [employer]ronik Allergies avocado [AVOCADO] Allergy (Severe, Verified 02/03/23 11:24) HIVES/SOB lisinopril Allergy (Severe, Verified 02/03/23 11:24) Unknown passion fruit [PASSION FRUIT] Allergy (Severe, Verified 02/03/23 11:24) HIVES/SOB sacubitril [Entresto] Allergy (Severe, Verified 02/03/23 11:24) Unknown valsartan [Entresto] Allergy (Severe, Verified 02/03/23 11:24) Unknown soy [SOY] Allergy (Unknown, Verified 02/03/23 11:24) [facility] Medical History CAD (coronary artery disease) Diabetes mellitus HFrEF (heart failure with reduced ejection fraction) HTN (hypertension) ICD (implantable cardioverter-defibrillator) in place Nonischemic cardiomyopathy Surgical History H/O colonoscopy History of cardiac cath (~2017) History of carpal tunnel surgery Family History Father No problems noted. Mother No problems noted. Social History Household Members: Spouse Alcohol intake: former Patient Tobacco Use Status: Former Tobacco user Second Hand Smoke Exposure: No Office Procedures Cardiac Device Check Cardiac Device Check Details: Remote heart failure report generated 05/02/2023. Heart failure parameters are stable [id number] Cardiac Device Interrogation, cardio physiologic monitor Procedure code (CPT) selection complete Coding Level of Care Code Procedure Only CPT Codes Cardiac Device Check - Cardiac Device 15: [id number] Cardiac Device Interrogation, cardio physiologic monitor ([id number])
== END ==
PROVIDERS: PCP Registered Nurse; Visit Provider Internal Medicine Cardiovascular Disease
DX: I50.20 Unspecified systolic (congestive) heart failure (principal); Z95.810 Presence of automatic (implantable) cardiac defibrillator
CPT/HCPCS: 93297

== ENCOUNTER 2023-05-03 08:49 | Outpatient (AMB) | payer OTHER, SELFPAY ==
--- NOTE | 2023-05-03 09:48 | MHC.OFFVIS ---
Intake Intake Visit Reasons: 6m/labs(Pending) Allergies avocado [AVOCADO] Allergy (Severe, Verified 05/03/23 08:48) HIVES/SOB lisinopril Allergy (Severe, Verified 05/03/23 08:48) Unknown passion fruit [PASSION FRUIT] Allergy (Severe, Verified 05/03/23 08:48) HIVES/SOB sacubitril [Entresto] Allergy (Severe, Verified 05/03/23 08:48) Unknown valsartan [Entresto] Allergy (Severe, Verified 05/03/23 08:48) Unknown soy [SOY] Allergy (Unknown, Verified 05/03/23 08:48) SWELLING Medication List - Last Reconciled 05/03/23 by Ac Marina MD acetaminophen-codeine 300-60 mg 1 tab PO TID PRN albuterol sulfate 90 mcg/actuation 1 inh inhalation Q4H PRN aspirin 81 mg PO QAM atorvastatin 40 mg PO BEDTIME blood sugar diagnostic (FreeStyle Lite Strips) As directed budesonide-formoterol 160-4.5 mcg/actuation (Symbicort) 2 puffs inhalation BID carvedilol 25 mg PO BID cholecalciferol (vitamin D3) 50 mcg PO DAILY citalopram 10 mg PO DAILY cyanocobalamin (vitamin B-12) 1,000 mcg PO DAILY diclofenac sodium 1% (Arthritis Pain (diclofenac)) 4 grams topical QID PRN 30 days dulaglutide (Trulicity) mg subcut empagliflozin (Jardiance) 25 mg PO DAILY esomeprazole magnesium (Nexium) 40 mg PO TID 14 days furosemide 40 mg PO QAM gabapentin TAKE 1 CAPSULE BY MOUTH AT BEDTIME hydralazine 50 mg PO BID insulin syringe-needle U-100 (BD Insulin Syringe) Use once a week to inject testosterone lancets (TRUEplus Lancets) As directed metformin 1,000 mg PO omeprazole 20 mg PO DAILY oxycodone 5 mg PO Q6H PRN oxycodone-acetaminophen 5-325 mg 1 tab PO Q6H PRN quetiapine 50 mg PO BEDTIME sildenafil 100 mg PO DAILY PRN 30 days tadalafil 10 mg PO DAILY 90 days testosterone cypionate 80 mg (0.4 mL) subcut QWEEK 28 days zolpidem 5 mg PO BEDTIME HPI HPI Comments History of Present Illness Details Mr Lehman is a very pleasant male. He is a patient of Dr Mejia. He is seen for the following urologic conditions. - hypogonadism - erectile dysfunction Telemedicine Evaluation 15 min Consultation Stealz Donte Video attempted Good response to tadalafil Prescription refilled Continue testosterone Prescription refilled Injection day Tuesday, lab work Tuesday, High hematocrit Recommend therapeutic phlebotomy 6 month follow-up Erectile dysfunction related to diabetes Had been on demand Current medications include daily 10 mg tadalafil Hypogonadism:? He presents today for?further evaluation and followup of his hypogonadism - doing better with more energy since starting injections.? Initial symptoms include? erectile dysfunction ?Yes ? decreased libido ?Yes ? change in mood/depression ?Yes ? in muscle size/strength ?Yes ? increased fatigue/malaise ?Yes ? The onset of symptoms has been?gradual.? Associate conditions include? obstructive sleep apnea ?No ? CAD ?No ? diabetes ?Yes ? dyslipidemia ?Yes ? hypertension ?Yes ? He has been taking?antidepressants.? Laboratory results?baseline, testosterone Mar 2016 163 ?, followup Day of T injection 06/04 369 ?02/03 , PSA 0.2, , testosterone 404 - at 0.25 SQ 2x a week - will increase to 0.3 ?08/07 restart T at 0.25 ?12/05 T 275, 08/08 T 625, PSA 0.3, 02/05 T 377 PSA 0.28, 08/09 T 266, 02/07 T 484, PSA 0.3, 08/11 T 759 P 0.4 H 57.3, 02/08 T 231 h 53, 08/12 800 0.6 53 ? Current therapy includes?injectable exogenous testosterone.? Response to therapy has been?improved, energy/wellbeing.? Diagnosis based on history and laboratory results?combined testicular insufficiency.? Therapeutic plan?continue current medication.? PFS Medical History CAD (coronary artery disease) Diabetes mellitus HFrEF (heart failure with reduced ejection fraction) HTN (hypertension) ICD (implantable cardioverter-defibrillator) in place Nonischemic cardiomyopathy Surgical History H/O colonoscopy History of cardiac cath (~2017) History of carpal tunnel surgery Family History Father No problems noted. Mother No problems noted. Social History Household Members: Spouse Alcohol intake: former Patient Tobacco Use Status: Former Tobacco user Second Hand Smoke Exposure: No Review of Systems Const All systems reviewed & are unremarkable except as noted in HPI and below Reports no additional complaints Resp Reports no additional complaints GI Reports no additional complaints Reports as per HPI Musc Reports no additional complaints Physical Exam Telemedicine evaluation Appropriate responses Regular breathing rate and rhythm HEENT Head: Yes normal to inspection Ears: hearing grossly normal bilaterally Eyes General: appearance normal, both eyes and all related structures Neck Neck: Yes normal visual inspection Chest Chest palpation & inspection: normal inspection of the chest Resp Effort & Inspection: normal respiratory effort and able to speak in complete sentences Assessment & Plan Assessment & Plan (1) Erectile dysfunction associated with type 2 diabetes mellitus: Code(s): E11.69 - Type 2 diabetes mellitus with other specified complication; N52.1 - Erectile dysfunction due to diseases classified elsewhere (2) Hypogonadism in male: Code(s): E29.1 - Testicular hypofunction (3) High hematocrit: Code(s): R71.8 - Other abnormality of red blood cells Plan Needs therapeutic phlebotomy Six month follow-up Orders: Orders Testosterone, Total 6 Months E11.69 - Type 2 diabetes mellitus with other specified complication, N52.1 - Erectile dysfunction due to diseases classified elsewhere Prostate Specific Antigen 6 Months . - Type 2 diabetes mellitus with other specified complication, N52.1 - Erectile dysfunction due to diseases classified elsewhere Complete Blood Count no Diff 6 Months E11.69 - Type 2 diabetes mellitus with other specified complication, N52.1 - Erectile dysfunction due to diseases classified elsewhere Medications: New tadalafil 10 mg PO DAILY 90 days 90 tabs 0RF sexual activity E11.69 - Type 2 diabetes mellitus with other specified complication, N52.1 - Erectile dysfunction due to diseases classified elsewhere Refilled testosterone cypionate 80 mg (0.4 mL) subcut QWEEK 28 days 2 mL 5RF E29.1 - Testicular hypofunction Patient Instructions: Imaging studies, laboratory and physical exam results were discussed and reviewed in detail. No major barriers to patient understanding were identified. An opportunity to ask questions regarding the treatment plan was provided. All questions were answered. The patient expressed understanding and agreement with the above treatment plan. The patient is aware they should contact our office by phone for worsening of their current condition or the appearance of new urologic symptoms. Compliance is encouraged with any medications and followup testing that is ordered. It is a privilege to participate in the urologic care of your patient. If you have any questions or concerns regarding treatment for the above conditions, or other urologic issues, please do not hesitate to contact me. The office telephone contact is [phone]. This note is constructed using voice recognition software. While every effort has been made to ensure accuracy serologist errors may have been included. Yours sincerely, Dr Ac Marina MD, [facility] - Urology Providers of Expert, Compassionate Care for the Genitourinary System Telehealth Telehealth Location of provider rendering services: practice address Location of patient: address on file Patient Identification confirmed using: Name, : Yes Telehealth method: voice only Patient verbally consented to treatment: Yes Patient verbally consented to billing insurance company: Yes Patient informed of any privacy concerns related to visit: Yes Coding Level of Care Code Tele Est Pt Level 4 (79870) Diagnoses Erectile dysfunction associated with type 2 diabetes mellitus E11.69; N52.1 Hypogonadism in male E29.1 High hematocrit R71.8
== END 2023-05-03 13:11 | disposition home or self-care (01) ==
LOC: HO.HUSH 08:49
PROVIDERS: PCP Registered Nurse; Visit Provider Urology
DX: E11.69 Type 2 diabetes mellitus with other specified complication (principal); N52.1 Erectile dysfunction due to diseases classified elsewhere; E29.1 Testicular hypofunction; R71.8 Other abnormality of red blood cells
CPT/HCPCS: 99442

== ENCOUNTER → 2023-05-03 08:49 | Outpatient (BNVA) | payer OTHER, SELFPAY | PROVIDERS: PCP Registered Nurse; Visit Provider Urology ==

== ENCOUNTER 2023-05-11 10:39 | Outpatient (REF) | payer OTHER, SELFPAY | END 2023-05-11 10:40 | disposition home or self-care (01) | LOC: HO.BBR 10:39 | PROVIDERS: Visit Provider Urology | DX: R71.8 Other abnormality of red blood cells (principal) | CPT/HCPCS: 85014; 99195 ==

== ENCOUNTER → 2023-06-02 23:59 | Outpatient (BNV) | payer MEDICARE, MEDICAID, SELFPAY ==
--- NOTE | 2023-06-02 10:33 | MHC.OFFVIS ---
Intake Intake Visit Reasons: Remote HF Monitoring- Biotronik Allergies avocado [AVOCADO] Allergy (Severe, Verified 05/03/23 08:48) HIVES/SOB lisinopril Allergy (Severe, Verified 05/03/23 08:48) Unknown passion fruit [PASSION FRUIT] Allergy (Severe, Verified 05/03/23 08:48) HIVES/SOB sacubitril [Entresto] Allergy (Severe, Verified 05/03/23 08:48) Unknown valsartan [Entresto] Allergy (Severe, Verified 05/03/23 08:48) Unknown soy [SOY] Allergy (Unknown, Verified 05/03/23 08:48) [facility] Medical History CAD (coronary artery disease) Diabetes mellitus HFrEF (heart failure with reduced ejection fraction) HTN (hypertension) ICD (implantable cardioverter-defibrillator) in place Nonischemic cardiomyopathy Surgical History H/O colonoscopy History of cardiac cath (~2017) History of carpal tunnel surgery Family History Father No problems noted. Mother No problems noted. Social History Household Members: Spouse Alcohol intake: former Patient Tobacco Use Status: Former Tobacco user Second Hand Smoke Exposure: No Office Procedures Cardiac Device Check Cardiac Device Check Details: Remote heart failure report generated 06/02/2023. Heart failure parameters are stable [id number] Cardiac Device Interrogation, cardio physiologic monitor Procedure code (CPT) selection complete Assessment & Plan Assessment & Plan (1) ICD (implantable cardioverter-defibrillator) in place: Comment: implanted 2018-Biotronik Code(s): Z95.810 - Presence of automatic (implantable) cardiac defibrillator Plan: See above Coding Level of Care Code Procedure Only Diagnoses ICD (implantable cardioverter-defibrillator) in place Z95.810 CPT Codes Cardiac Device Check - Cardiac Device 15: [id number] Cardiac Device Interrogation, cardio physiologic monitor ([id number])
== END ==
PROVIDERS: PCP Registered Nurse; Visit Provider Internal Medicine Cardiovascular Disease
DX: I50.20 Unspecified systolic (congestive) heart failure (principal); Z95.810 Presence of automatic (implantable) cardiac defibrillator
CPT/HCPCS: 93297

== ENCOUNTER 2023-06-10 10:34 | Outpatient (REF) | payer MEDICARE, MEDICAID, SELFPAY | END 2023-06-10 10:35 | disposition home or self-care (01) | LOC: HO.BBR 10:34 | PROVIDERS: PCP Registered Nurse; Visit Provider Urology | DX: R71.8 Other abnormality of red blood cells (principal); Z79.890 Hormone replacement therapy | CPT/HCPCS: 85014; 85018; 99195 ==

== ENCOUNTER 2023-07-11 10:37 | Outpatient (REF) | payer OTHER, SELFPAY | END 2023-07-11 10:38 | disposition home or self-care (01) | LOC: HO.BBR 10:37 | PROVIDERS: PCP Registered Nurse; Visit Provider Urology | DX: E29.1 Testicular hypofunction (principal) | CPT/HCPCS: 85014; 85018; 99195 ==

== ENCOUNTER → 2023-07-11 23:59 | Outpatient (BNV) | payer OTHER, SELFPAY ==
--- NOTE | 2023-07-12 12:33 | MHC.OFFVIS ---
Intake Intake Visit Reasons: Remote ICD Check- Biotronik Allergies avocado [AVOCADO] Allergy (Severe, Verified 05/03/23 08:48) HIVES/SOB lisinopril Allergy (Severe, Verified 05/03/23 08:48) Unknown passion fruit [PASSION FRUIT] Allergy (Severe, Verified 05/03/23 08:48) HIVES/SOB sacubitril [Entresto] Allergy (Severe, Verified 05/03/23 08:48) Unknown valsartan [Entresto] Allergy (Severe, Verified 05/03/23 08:48) Unknown soy [SOY] Allergy (Unknown, Verified 05/03/23 08:48) SWELLING [facility]LY [facility] Medical History CAD (coronary artery disease) Diabetes mellitus HFrEF (heart failure with reduced ejection fraction) HTN (hypertension) ICD (implantable cardioverter-defibrillator) in place Nonischemic cardiomyopathy Surgical History H/O colonoscopy History of cardiac cath (~2017) History of carpal tunnel surgery Family History Father No problems noted. Mother No problems noted. Social History Household Members: Spouse Alcohol intake: former Patient Tobacco Use Status: Former Tobacco user Second Hand Smoke Exposure: No Office Procedures Cardiac Device Check Cardiac Device Check Details: Remote ICD report generated 07/11/2023. ICD function is adequate [id number] Cardiac Interrogation, implant defibrillator w/interim Procedure code (CPT) selection complete Assessment & Plan Assessment & Plan (1) ICD (implantable cardioverter-defibrillator) in place: Comment: implanted 2018-B[employer]ik Code(s): Z95.810 - Presence of automatic (implantable) cardiac defibrillator Plan: See above Coding Level of Care Code Procedure Only Diagnoses ICD (implantable cardioverter-defibrillator) in place Z95.810 CPT Codes Cardiac Device Check - Cardiac Device 13: [id number] Cardiac Interrogation, implant defibrillator w/interim ([id number])
== END ==
PROVIDERS: PCP Registered Nurse; Visit Provider Internal Medicine Cardiovascular Disease
DX: I50.20 Unspecified systolic (congestive) heart failure (principal); Z95.810 Presence of automatic (implantable) cardiac defibrillator
CPT/HCPCS: 93295

== ENCOUNTER 2023-07-15 09:10 | Outpatient (AMB) | payer OTHER, SELFPAY ==
--- NOTE | 2023-07-15 09:15 | A.OFFVIS_ITS ---
Intake Vital Signs 07/15/23 09:20 Height 5 ft 6.5 in Weight 190 lb BMI 30.2 BP 122/78 Blood Pressure Location Lt brachial Position Sitting Pulse 72 Intake Visit Reasons: 1 year followup w/biotronik device check Intake Note: 1 year follow-up with ekg c/o fatigue Tool Straightener Required: No Allergies avocado [AVOCADO] Allergy (Severe, Verified 05/03/23 08:48) HIVES/SOB lisinopril Allergy (Severe, Verified 05/03/23 08:48) Unknown passion fruit [PASSION FRUIT] Allergy (Severe, Verified 05/03/23 08:48) HIVES/SOB sacubitril [Entresto] Allergy (Severe, Verified 05/03/23 08:48) Unknown valsartan [Entresto] Allergy (Severe, Verified 05/03/23 08:48) Unknown soy [SOY] Allergy (Unknown, Verified 05/03/23 08:48) SWELLING Medication List - Last Reconciled 07/15/23 by Ramin Pillai MD acetaminophen-codeine 300-60 mg 1 tab PO TID PRN albuterol sulfate 90 mcg/actuation 1 inh inhalation Q4H PRN aspirin 81 mg PO QAM atorvastatin 40 mg PO BEDTIME blood sugar diagnostic (FreeStyle Lite Strips) As directed budesonide-formoterol 160-4.5 mcg/actuation (Symbicort) 2 puffs inhalation BID carvedilol 25 mg PO BID cholecalciferol (vitamin D3) 50 mcg PO DAILY citalopram 10 mg PO DAILY cyanocobalamin (vitamin B-12) 1,000 mcg PO DAILY diclofenac sodium 1% (Arthritis Pain (diclofenac)) 4 grams topical QID PRN 30 days dulaglutide (Trulicity) mg subcut empagliflozin (Jardiance) 25 mg PO DAILY esomeprazole magnesium (Nexium) 40 mg PO TID 14 days furosemide 40 mg PO QAM gabapentin TAKE 1 CAPSULE BY MOUTH AT BEDTIME hydralazine 50 mg PO BID insulin syringe-needle U-100 (BD Insulin Syringe) Use once a week to inject testosterone lancets (TRUEplus Lancets) As directed metformin 1,000 mg PO omeprazole 20 mg PO DAILY quetiapine 50 mg PO BEDTIME sildenafil 100 mg PO DAILY PRN 30 days tadalafil 10 mg PO DAILY 90 days testosterone cypionate 80 mg (0.4 mL) subcut QWEEK 28 days zolpidem 5 mg PO BEDTIME HPI HPI Comments History of Present Illness Details Andry comes for follow-up. He said over the last month he has been feeling more weakness and more shortness of breath with exertion. Denies any orthopnea, PND. Denies any light-headedness, syncope, ICD discharge. No prolonged palpitations irregular heartbeat. Takes all his medications. He said he sleeps well. Otherwise he maintains his activity level. [facility]LY [facility] Medical History ICD (implantable cardioverter-defibrillator) in place HFrEF (heart failure with reduced ejection fraction) Nonischemic cardiomyopathy HTN (hypertension) Diabetes mellitus CAD (coronary artery disease) Surgical History History of carpal tunnel surgery H/O colonoscopy History of cardiac cath (~2016) Family History Father No problems noted. Mother No problems noted. Social History Household Members: Spouse Alcohol intake: former Patient Tobacco Use Status: Former Tobacco user Second Hand Smoke Exposure: No Review of Systems Const Denies chills, Denies fatigue, Denies fever(s), Denies frequent falls, Denies weakness, Denies weight gain and Denies weight loss ENT Denies dizziness Card Denies chest pain, Denies leg edema, Denies lightheadedness, Denies palpitations, Denies dyspnea, Denies dyspnea on exertion, Denies orthopnea and Denies other (loss of consciousness) Resp Denies cough, Denies dyspnea and Denies dyspnea on exertion GI Denies hematochezia and Denies change in stool character Musc Denies abnormal gait, Denies muscle weakness, Denies numbness, Denies radiating pain into limb and Denies tingling Neuro Denies abnormal gait, Denies dizziness, Denies frequent falls, Denies numbness, Denies tingling and Denies weakness Endo Denies fatigue and Denies palpitations Physical Exam Vital Signs: Last Vital Signs Pulse 72 07/15/23 09:20 BP 122/78 07/15/23 09:20 BMI result Body Mass Index 30.2 Const General: cooperative, comfortable, no acute distress, alert, awake and well groomed Nutritional Appearance: overweight Orientation/consciousness: patient oriented x3 Limitations: no limitations Neck Neck: Yes trachea midline, Yes supple and Yes no JVD Resp Effort & Inspection: normal respiratory effort Auscultation: clear to auscultation bilaterally Cardio Jugular venous distension: no JVD Palpation: normal PMI Rate: regular rate Rhythm: regular rhythm Heart sounds: S1 normal heart sound present, S2 normal heart sound present, no click, no gallops, no murmurs and no rubs GI Auscultation: normal bowel sounds Skin General skin exam: no rashes or lesions noted Neuro General: patient oriented x3 and no focal motor deficits Extrem General: Yes no clubbing, cyanosis or edema Psych Appearance: grossly normal Office Procedures EKG Details: EKG shows normal sinus rhythm with normal EKG 52257-[id number], Complete Assessment & Plan Assessment & Plan (1) Nonischemic cardiomyopathy: Code(s): I42.8 - Other cardiomyopathies Plan: Prior history of nonischemic cardiomyopathy with improved advised LV ejection fraction the past with neurohormonal modulation. However is not having increasing symptoms of shortness of breath and fatigue without any overt signs of congestive heart failure. Recommend an echocardiogram to assess for any worsening of his LV ejection fraction that may require alternative therapy. Otherwise continue current neurohormonal modulation with carvedilol, afterload reduction with hydralazine, Jardiance. Continue current diuretic does with Lasix 40 mg daily. Daily weight monitoring avoidance of salt loading was discussed. (2) CAD (coronary artery disease): Code(s): I25.10 - Atherosclerotic heart disease of [place] coronary artery without angina pectoris Plan: CAD which is nonobstructive. Stable. Continue low-dose aspirin therapy. Continue aggressive vascular risk factor modification. Blood pressure is currently well optimized. Target goal blood pressure less than 130/84. Hemoglobin A1c less than 7%. Goal LDL less than 70 mg/dL. Encouraged to continue to participate in heart healthy lifestyle and weight loss program. (3) ICD (implantable cardioverter-defibrillator) in place: Comment: implanted 2018-[employer] Code(s): Z95.810 - Presence of automatic (implantable) cardiac defibrillator Plan: ICD in place remotely working well. Was not able to check it today. Will set him up for clinic in 3 weeks' time. Continue to monitor remotely. Follow up in the clinic in 6 months time, sooner p.r.n.. Thank you for allowing me to partake in his care Orders: Orders CA echo transthoracic complete Today I42.8 - Other cardiomyopathies Coding Level of Care Code Est Pt Level 4 (37941) Diagnoses Nonischemic cardiomyopathy I42.8 CAD (coronary artery disease) I25.10 ICD (implantable cardioverter-defibrillator) in place Z95.810 CPT Codes EKG - CPT: 95869-[id number], Complete ([id number])
[2023-07-15 09:20] VITALS: BP 122/78; PULSE 72; BMI 30.2
== END 2023-07-15 09:58 | disposition home or self-care (01) ==
PROVIDERS: PCP Registered Nurse; Visit Provider Internal Medicine Cardiovascular Disease
DX: I42.8 Other cardiomyopathies (principal); I25.10 Atherosclerotic heart disease of native coronary artery without angina pectoris; Z95.810 Presence of automatic (implantable) cardiac defibrillator
CPT/HCPCS: 93010; 99214

== ENCOUNTER → 2023-07-15 09:10 | Outpatient (BNVA) | payer OTHER, SELFPAY | PROVIDERS: PCP Registered Nurse; Visit Provider Internal Medicine Cardiovascular Disease | DX: I42.8 Other cardiomyopathies (principal); I25.10 Atherosclerotic heart disease of native coronary artery without angina pectoris; Z79.82 Long term (current) use of aspirin; Z95.810 Presence of automatic (implantable) cardiac defibrillator | CPT/HCPCS: 93005; 99212 ==

== ENCOUNTER → 2023-07-18 23:59 | Outpatient (BNV) | payer OTHER, SELFPAY ==
--- NOTE | 2023-07-18 16:39 | MHC.OFFVIS ---
Intake Intake Visit Reasons: Remote HF Monitoring- Biotronik Allergies avocado [AVOCADO] Allergy (Severe, Verified 05/03/23 08:48) HIVES/SOB lisinopril Allergy (Severe, Verified 05/03/23 08:48) Unknown passion fruit [PASSION FRUIT] Allergy (Severe, Verified 05/03/23 08:48) HIVES/SOB sacubitril [Entresto] Allergy (Severe, Verified 05/03/23 08:48) Unknown valsartan [Entresto] Allergy (Severe, Verified 05/03/23 08:48) Unknown soy [SOY] Allergy (Unknown, Verified 05/03/23 08:48) SWELLING [facility] Medical History ICD (implantable cardioverter-defibrillator) in place HFrEF (heart failure with reduced ejection fraction) Nonischemic cardiomyopathy HTN (hypertension) Diabetes mellitus CAD (coronary artery disease) Surgical History History of carpal tunnel surgery H/O colonoscopy History of cardiac cath (~2017) Family History Father No problems noted. Mother No problems noted. Social History Household Members: Spouse Alcohol intake: former Patient Tobacco Use Status: Former Tobacco user Second Hand Smoke Exposure: No Office Procedures Cardiac Device Check Cardiac Device Check Details: Remote heart failure report generated 07/18/2023. Heart failure parameters are stable [id number] Cardiac Device Interrogation, cardio physiologic monitor Procedure code (CPT) selection complete Assessment & Plan Assessment & Plan (1) ICD (implantable cardioverter-defibrillator) in place: Comment: implanted 2018-[employer]ik Code(s): Z95.810 - Presence of automatic (implantable) cardiac defibrillator Plan: See above Coding Level of Care Code Procedure Only Diagnoses ICD (implantable cardioverter-defibrillator) in place Z95.810 CPT Codes Cardiac Device Check - Cardiac Device 15: [id number] Cardiac Device Interrogation, cardio physiologic monitor ([id number])
== END ==
PROVIDERS: PCP Registered Nurse; Visit Provider Internal Medicine Cardiovascular Disease
DX: I50.20 Unspecified systolic (congestive) heart failure (principal); Z95.810 Presence of automatic (implantable) cardiac defibrillator
CPT/HCPCS: 93297

== ENCOUNTER 2023-07-20 09:28 | Outpatient (REF) | payer OTHER, SELFPAY ==
[2023-07-20 12:25] LABS: Alanine Aminotransferase 12 U/L (0-40); Albumin Level 4.4 g/dL (3.5-5.0); Alkaline Phosphatase 73 U/L (39-117); Anion Gap 16 (12-20); Aspartate Amino Transferase 16 U/L (5-37); Bilirubin Total 0.4 mg/dL (0.0-1.0); Blood Urea Nitrogen 23 mg/dL (9-16); Calcium 9.6 mg/dL (8.4-10.2); Carbon Dioxide 25 mmol/L (22-29); Chloride 101 mmol/L (96-108); Cholesterol 127 mg/dL (<200); Estimated Glomerular Filt Rate > 60; Glucose Random 132 mg/dL (60-115); HDL Cholesterol 49 mg/dL (>40); LDL Cholesterol Calculated 64 mg/dL (<100); Potassium 4.3 mmol/L (3.3-5.1); Sodium 138 mmol/L (135-145); Total Protein 7.9 g/dL (6.5-8.0); Triglycerides 71 mg/dL (<150)
[2023-07-20 12:47] LABS: Creatinine Urine 38.57 mg/dL; Microalbum/Creatinine Ratio Ur 82.9 ug/mg cr (<30)
== END 2023-07-20 09:29 | disposition home or self-care (01) ==
LOC: HO.HHCL 09:28
PROVIDERS: Visit Provider Registered Nurse
DX: E11.49 Type 2 diabetes mellitus with other diabetic neurological complication (principal)
CPT/HCPCS: 36415; 80053; 80061; 82043; 82570

== ENCOUNTER → 2023-08-04 10:40 | Outpatient (REF) | payer OTHER, SELFPAY ==
--- NOTE | 2023-08-04 10:42 | CA_ITS ---
Transthoracic Echocardiogram Patient (Last, First, Middle): Andry Lehman, Gender: Male Date of : 1965 Age: 58 Procedure Date: 08/04/2023 Procedure Type: Transthoracic Echocardiogram Location: OP Height: 170. cm Weight: 89.81 kg BSA: 2.01 m2 Heart Rate: 66 bpm BP: 125 / 70 mmHg Regional Driver: AUBREE Referring MD: Ramin Pillai MD Cooker Mechanic: Ramin Pillai MD Symptoms: I42.8 - Other cardiomyopathies Study Quality: Adequate w/Contrast ECG Rhythm: Sinus Conclusions: - 1. Normal LV ejection fraction 55-60% with grade 1 diastolic dysfunction 2. Trivial aortic regurgitation 3. No gross pericardial effusion Findings Procedure Information Contrast agent, definity, is being given per protocol without apparent complications. Left Ventricle Normal left ventricular size, thickness, and systolic function. The visually estimated ejection fraction is between 55-60%. Spectral Doppler is indicative of an impaired relaxation filling pattern. E/E prime ratio is <8, consistent with normal filling pressures. Evidence suggests grade I (mild) diastolic dysfunction. Right Ventricle Normal right ventricular cavity size. There is normal right ventricular systolic function. There is an ICD wire seen in the right ventricle. Atria The left atrium is likely dilated. Interatrial shunt cannot be excluded. The right atrium was not well visualized. Aortic Valve The aortic valve structure and function is likely normal. There is no aortic valve stenosis. There is trace (trivial) aortic valve regurgitation. Mitral Valve There is mild anterior and posterior mitral leaflet thickening. There is trace mitral valve regurgitation. There is no mitral valve stenosis. Pulmonic Valve The pulmonic valve was not well visualized. Tricuspid Valve Likely normal tricuspid valve structure and function. Tricuspid regurgitation envelope is inadequate for calculation of right ventricular systolic pressure. Normal right atrial pressure. Great Vessels All visible segments of the aorta are normal in size. The pulmonary artery was not well visualized. There is no dilatation of the ascending aorta measuring 3.40 cm. Venous The inferior vena cava is normal in size and collapses greater than 50% with inspiration. Pericardium/Pleural There is no evidence of pericardial effusion. Prior Study Comparison No significant change compared to prior study dated: 06/01/2022. Measurements 2D Linear Measurements IVSd: 0.94 0.6-0.9/0.6-1.0 cm LVIDd: 5.36 3.9-5.3/4.2-5.9 cm LVIDd Index: 2.67 2.4-3.2/2.2-3.1 cm/m2 LVIDs: 3.57 2.0-3.6 cm LVPWd: 0.95 0.7-1.1 cm LA Diam: 4.00 2.7-3.8/3.0-4.0 cm LAIDs Index: 1.99 1.5-2.3 cm/m2 LV Mass: 235.35 67-162/88-224 g LV Mass Index: 117.09 43-95/49-115 g/m2 LVOT Diam: 2.20 3.0+(-)1.3 cm 2D Systolic Function EF 4C: 57.30 >55% EF 2C: 58.80 >55% EF BiP: 58.10 >55% Mitral Valve MV Pk E: 0.69 MV PK A: 0.96 MV Decel Time: 205.00 E/A: 0.70 E'Lateral: 10.10 E'Medial: 6.31 E/E' Med: 10.90 E/E' Lat: 6.80 PHT: 60.00 MVA PHT: 3.67 Decel [place]: 3.35 Aortic Valve AoV Pk Aleksey: 1.52 AoV Mn Aleksey: 1.08 AoV VTI: 0.34 AoV Pk Grad: 9.00 Aov Mn Grad: 5.00 [place] Cont.VTI: 2.58 LVOT LVOT Pk Aleksey: 0.97 LVOT Mn Aleksey: 0.71 LVOT VTI: 0.23 LVOT Pk Grad: 4.00 LVOT Mn Grad: 3.00 LVOT Diam: 2.20 LVOT Area: 3.80 Diastolic Function MV Pk E: 0.69 MV Pk A: 0.96 E/A: 0.70 E'Medial: 6.31 E/E' Med: 10.90 E' Laterial: 10.10 E/E' Lat: 6.80 Right Ventricle TAPSE (mm): 21.40 TVS' Aleksey: 12.50 Tricuspid Valve RA Press: 3.00 Great Vessels Aorta Sinus of Valsalva: 3.40 2.0-3.5 cm Ao Asc: 3.40 2.1-3.4 cm Pulmonary Valve PV Pk Aleksey: 0.90 Peak PV Grad: 3.00 Updated in Other Vendor System with Status of Final Ramin Pillai MD electronically signed on 08/04/2023 4:41:16 PM with status of Final
== END ==
LOC: HO.CARD 10:40
PROVIDERS: PCP Registered Nurse; Visit Provider Internal Medicine Cardiovascular Disease
DX: I42.8 Other cardiomyopathies (principal)
CPT/HCPCS: 93306; Q9957

== ENCOUNTER → 2023-08-04 10:42 | Outpatient (BNV) | payer OTHER, SELFPAY | PROVIDERS: PCP Registered Nurse; Visit Provider Internal Medicine Cardiovascular Disease | DX: I42.8 Other cardiomyopathies (principal) | CPT/HCPCS: 93306 ==

== ENCOUNTER 2023-08-11 09:50 | Outpatient (REF) | payer OTHER, SELFPAY | END 2023-08-11 09:51 | disposition home or self-care (01) | LOC: HO.BBR 09:50 | PROVIDERS: PCP Registered Nurse; Visit Provider Urology | DX: E29.1 Testicular hypofunction (principal) | CPT/HCPCS: 85014; 85018; 99195 ==

== ENCOUNTER → 2023-08-15 12:16 | Outpatient (BNVA) | payer OTHER, SELFPAY | PROVIDERS: PCP Registered Nurse; Visit Provider Internal Medicine Cardiovascular Disease ==

== ENCOUNTER → 2023-08-22 23:59 | Outpatient (BNV) | payer OTHER, SELFPAY ==
--- NOTE | 2023-08-23 16:25 | A.OFFVIS_ITS ---
Intake Intake Visit Reasons: Remote HF Monitoring- Biotronik Allergies avocado [AVOCADO] Allergy (Severe, Verified 05/03/23 08:48) HIVES/SOB lisinopril Allergy (Severe, Verified 05/03/23 08:48) Unknown passion fruit [PASSION FRUIT] Allergy (Severe, Verified 05/03/23 08:48) HIVES/SOB sacubitril [Entresto] Allergy (Severe, Verified 05/03/23 08:48) Unknown valsartan [Entresto] Allergy (Severe, Verified 05/03/23 08:48) Unknown soy [SOY] Allergy (Unknown, Verified 05/03/23 08:48) [facility]LLING [facility] Medical History ICD (implantable cardioverter-defibrillator) in place HFrEF (heart failure with reduced ejection fraction) Nonischemic cardiomyopathy HTN (hypertension) Diabetes mellitus CAD (coronary artery disease) Surgical History History of carpal tunnel surgery H/O colonoscopy History of cardiac cath (~2017) Family History Father No problems noted. Mother No problems noted. Social History Household Members: Spouse Alcohol intake: former Patient Tobacco Use Status: Former Tobacco user Second Hand Smoke Exposure: No Office Procedures Cardiac Device Check Cardiac Device Check Details: Remote heart failure report generated 08/22/2023. Heart failure parameters are stable [id number] Cardiac Device Interrogation, cardio physiologic monitor Procedure code (CPT) selection complete Assessment & Plan Assessment & Plan (1) ICD (implantable cardioverter-defibrillator) in place: Comment: implanted 2018-Biotronik Code(s): Z95.810 - Presence of automatic (implantable) cardiac defibrillator Plan: See above Coding Level of Care Code Procedure Only Diagnoses ICD (implantable cardioverter-defibrillator) in place Z95.810 CPT Codes Cardiac Device Check - Cardiac Device 15: [id number] Cardiac Device Interrogation, cardio physiologic monitor ([id number])
== END ==
PROVIDERS: PCP Registered Nurse; Visit Provider Internal Medicine Cardiovascular Disease
DX: I50.20 Unspecified systolic (congestive) heart failure (principal); Z95.810 Presence of automatic (implantable) cardiac defibrillator
CPT/HCPCS: 93297

== ENCOUNTER 2023-08-31 08:37 | Outpatient (REF) | payer OTHER, SELFPAY ==
[2023-08-31 12:27] LABS: Creatinine Urine 97.43 mg/dL; Microalbum/Creatinine Ratio Ur 125.2 ug/mg cr (<30)
== END 2023-08-31 08:38 | disposition home or self-care (01) ==
LOC: HO.HHCL 08:37
PROVIDERS: Visit Provider Registered Nurse
DX: E11.49 Type 2 diabetes mellitus with other diabetic neurological complication (principal)
CPT/HCPCS: 82043; 82570

== ENCOUNTER 2023-09-06 12:02 | Outpatient (REF) | payer OTHER, SELFPAY ==
[2023-09-06 12:44] LABS: Hematocrit 52.5 % (42.0-52.0); Hemoglobin 16.2 g/dl (14.0-18.0); Mean Corpuscular HGB Conc 30.9 g/dl (31.0-36.0); Mean Corpuscular Hemoglobin 24.7 pg (27.0-33.0); Mean Corpuscular Volume 80.2 fL (80.0-98.0); Mean Platelet Volume 10.5 fL (9.4-12.4); Platelet Count 304 X10*3/uL (160-400); Red Blood Count 6.55 X10*6/uL (4.60-5.80); Red Cell Distribution Width 14.2 % (11.0-16.0); White Blood Count 10.7 X10*3/uL (4.8-10.8)
[2023-09-06 13:30] LABS: Prostate Specific Antigen 0.47 ng/mL (<0.05-4.0)
[2023-09-10 16:59] LABS: Testosterone, Total 330 ng/dL (250-1100)
== END 2023-09-06 12:03 | disposition home or self-care (01) ==
LOC: HO.LAB 12:02
PROVIDERS: PCP Registered Nurse; Visit Provider Urology
DX: E11.69 Type 2 diabetes mellitus with other specified complication (principal); N52.1 Erectile dysfunction due to diseases classified elsewhere; Z12.5 Encounter for screening for malignant neoplasm of prostate
CPT/HCPCS: 36415; 84153; 84403; 85027

== ENCOUNTER 2023-09-08 09:46 | Outpatient (REF) | payer OTHER, SELFPAY | END 2023-09-08 09:47 | disposition home or self-care (01) | LOC: HO.BBR 09:46 | PROVIDERS: PCP Registered Nurse; Visit Provider Urology | DX: D75.1 Secondary polycythemia (principal) | CPT/HCPCS: 85014 ==

== ENCOUNTER 2023-09-12 13:47 | Outpatient (AMB) | payer OTHER, SELFPAY ==
--- NOTE | 2023-09-12 15:19 | A.OFFVIS_ITS ---
Intake Intake Visit Reasons: biotronic ck Allergies avocado [AVOCADO] Allergy (Severe, Verified 05/03/23 08:48) HIVES/SOB lisinopril Allergy (Severe, Verified 05/03/23 08:48) Unknown passion fruit [PASSION FRUIT] Allergy (Severe, Verified 05/03/23 08:48) HIVES/SOB sacubitril [Entresto] Allergy (Severe, Verified 05/03/23 08:48) Unknown valsartan [Entresto] Allergy (Severe, Verified 05/03/23 08:48) Unknown soy [SOY] Allergy (Unknown, Verified 05/03/23 08:48) SWELLING [facility] Medical History ICD (implantable cardioverter-defibrillator) in place HFrEF (heart failure with reduced ejection fraction) Nonischemic cardiomyopathy HTN (hypertension) Diabetes mellitus CAD (coronary artery disease) Surgical History History of carpal tunnel surgery H/O colonoscopy History of cardiac cath (~2017) Family History Father No problems noted. Mother No problems noted. Social History Household Members: Spouse Alcohol intake: former Patient Tobacco Use Status: Former Tobacco user Second Hand Smoke Exposure: No Office Procedures Cardiac Device Check Cardiac Device Check Details: Single-chamber Biotronik ICD in place. ICD is working well. Ventricular sensing is excellent. Pacing and shock lead impedance is stable. Ventricular pacing thresholds are adequate. High ventricular rate episode noted consistent with SVT, self-limiting. Battery life is excellent [id number] Cardiac Device Check, single lead implantable defibrillator Procedure code (CPT) selection complete Assessment & Plan Assessment & Plan (1) ICD (implantable cardioverter-defibrillator) in place: Comment: implanted 2018-[employer] Code(s): Z95.810 - Presence of automatic (implantable) cardiac defibrillator Plan: See above Coding Level of Care Code Procedure Only Diagnoses ICD (implantable cardioverter-defibrillator) in place Z95.810 CPT Codes Cardiac Device Check - Cardiac Device 4: [id number] Cardiac Device Check, single lead implantable defibrillator ([id number])
== END 2023-09-12 14:38 | disposition home or self-care (01) ==
PROVIDERS: PCP Registered Nurse; Visit Provider Internal Medicine Cardiovascular Disease
DX: Z95.810 Presence of automatic (implantable) cardiac defibrillator (principal)
CPT/HCPCS: 93282

== ENCOUNTER → 2023-09-12 13:47 | Outpatient (BNVA) | payer OTHER, SELFPAY | PROVIDERS: PCP Registered Nurse; Visit Provider Internal Medicine Cardiovascular Disease ==

== ENCOUNTER → 2023-09-23 23:59 | Outpatient (BNV) | payer OTHER, SELFPAY ==
--- NOTE | 2023-09-26 16:19 | A.OFFVIS_ITS ---
Intake Intake Visit Reasons: Remote HF monitoring- Biotronik Allergies avocado [AVOCADO] Allergy (Severe, Verified 05/03/23 08:48) HIVES/SOB lisinopril Allergy (Severe, Verified 05/03/23 08:48) Unknown passion fruit [PASSION FRUIT] Allergy (Severe, Verified 05/03/23 08:48) HIVES/SOB sacubitril [Entresto] Allergy (Severe, Verified 05/03/23 08:48) Unknown valsartan [Entresto] Allergy (Severe, Verified 05/03/23 08:48) Unknown soy [SOY] Allergy (Unknown, Verified 05/03/23 08:48) [facility]WELLING [facility] Medical History ICD (implantable cardioverter-defibrillator) in place HFrEF (heart failure with reduced ejection fraction) Nonischemic cardiomyopathy HTN (hypertension) Diabetes mellitus CAD (coronary artery disease) Surgical History History of carpal tunnel surgery H/O colonoscopy History of cardiac cath (~2017) Family History Father No problems noted. Mother No problems noted. Social History Household Members: Spouse Alcohol intake: former Patient Tobacco Use Status: Former Tobacco user Second Hand Smoke Exposure: No Office Procedures Cardiac Device Check Cardiac Device Check Details: Remote heart failure report generated 09/23/2023. Heart failure parameters are stable [id number] Cardiac Device Interrogation, cardio physiologic monitor Procedure code (CPT) selection complete Assessment & Plan Assessment & Plan (1) ICD (implantable cardioverter-defibrillator) in place: Comment: implanted 2018-[employer] Code(s): Z95.810 - Presence of automatic (implantable) cardiac defibrillator Plan: See above Coding Level of Care Code Procedure Only Diagnoses ICD (implantable cardioverter-defibrillator) in place Z95.810 CPT Codes Cardiac Device Check - Cardiac Device 15: 10776-[id number] Cardiac Device Interrogation, cardio physiologic monitor ([id number])
== END ==
PROVIDERS: PCP Registered Nurse; Visit Provider Internal Medicine Cardiovascular Disease
DX: Z45.02 Encounter for adjustment and management of automatic implantable cardiac defibrillator (principal)
CPT/HCPCS: 93297

== ENCOUNTER → 2023-10-10 23:59 | Outpatient (BNV) | payer OTHER, SELFPAY ==
--- NOTE | 2023-10-11 16:39 | A.OFFVIS_ITS ---
Intake Visit Reasons: Remote ICD check- Biotronik Allergies avocado [AVOCADO] Allergy (Severe, Verified 05/03/23 08:48) HIVES/SOB lisinopril Allergy (Severe, Verified 05/03/23 08:48) Unknown passion fruit [PASSION FRUIT] Allergy (Severe, Verified 05/03/23 08:48) HIVES/SOB sacubitril [Entresto] Allergy (Severe, Verified 05/03/23 08:48) Unknown valsartan [Entresto] Allergy (Severe, Verified 05/03/23 08:48) Unknown soy [SOY] Allergy (Unknown, Verified 05/03/23 08:48) [facility]LLING [facility] Medical History ICD (implantable cardioverter-defibrillator) in place HFrEF (heart failure with reduced ejection fraction) Nonischemic cardiomyopathy HTN (hypertension) Diabetes mellitus CAD (coronary artery disease) Surgical History History of carpal tunnel surgery H/O colonoscopy History of cardiac cath (~2017) Family History Father No problems noted. Mother No problems noted. Social History Household Members: Spouse Alcohol intake: former Patient Tobacco Use Status: Former Tobacco user Second Hand Smoke Exposure: No Office Procedures Cardiac Device Check Cardiac Device Check Details: Remote ICD report generated 10/10/2023. ICD function is adequate [id number] Cardiac Interrogation, implant defibrillator w/interim Procedure code (CPT) selection complete Assessment & Plan Assessment & Plan (1) ICD (implantable cardioverter-defibrillator) in place: Comment: implanted 2018-[employer] Code(s): Z95.810 - Presence of automatic (implantable) cardiac defibrillator Category: Medical Plan: See above Coding Level of Care Code Procedure Only Diagnoses ICD (implantable cardioverter-defibrillator) in place Z95.810 CPT Codes Cardiac Device Check - Cardiac Device 13: [id number] Cardiac Interrogation, implant defibrillator w/interim ([id number])
== END ==
PROVIDERS: PCP Registered Nurse; Visit Provider Internal Medicine Cardiovascular Disease
DX: Z45.02 Encounter for adjustment and management of automatic implantable cardiac defibrillator (principal)
CPT/HCPCS: 93295

== ENCOUNTER 2023-10-11 09:47 | Outpatient (REF) | payer OTHER, SELFPAY | END 2023-10-11 09:48 | disposition home or self-care (01) | LOC: HO.BBR 09:47 | PROVIDERS: PCP Registered Nurse; Visit Provider Urology | DX: E29.1 Testicular hypofunction (principal) | CPT/HCPCS: 85014 ==

== ENCOUNTER → 2023-10-28 23:59 | Outpatient (BNV) | payer OTHER, SELFPAY ==
--- NOTE | 2023-10-31 11:24 | MHC.OFFVIS ---
Intake Visit Reasons: Remote HF monitoring- [employer]ik Allergies avocado [AVOCADO] Allergy (Severe, Verified 05/03/23 08:48) HIVES/SOB lisinopril Allergy (Severe, Verified 05/03/23 08:48) Unknown passion fruit [PASSION FRUIT] Allergy (Severe, Verified 05/03/23 08:48) HIVES/SOB sacubitril [Entresto] Allergy (Severe, Verified 05/03/23 08:48) Unknown valsartan [Entresto] Allergy (Severe, Verified 05/03/23 08:48) Unknown soy [SOY] Allergy (Unknown, Verified 05/03/23 08:48) [facility] Medical History ICD (implantable cardioverter-defibrillator) in place HFrEF (heart failure with reduced ejection fraction) Nonischemic cardiomyopathy HTN (hypertension) Diabetes mellitus CAD (coronary artery disease) Surgical History History of carpal tunnel surgery H/O colonoscopy History of cardiac cath (~2017) Family History Father No problems noted. Mother No problems noted. Social History Household Members: Spouse Alcohol intake: former Patient Tobacco Use Status: Former Tobacco user Second Hand Smoke Exposure: No Office Procedures Cardiac Device Check Cardiac Device Check Details: Remote heart failure report generated 10/28/2023. Heart failure parameters are stable [id number] Cardiac Device Interrogation, cardio physiologic monitor Procedure code (CPT) selection complete Assessment & Plan Assessment & Plan (1) ICD (implantable cardioverter-defibrillator) in place: Comment: implanted 2018-[employer] Code(s): Z95.810 - Presence of automatic (implantable) cardiac defibrillator Category: Medical Plan: See above Coding Level of Care Code Procedure Only Diagnoses ICD (implantable cardioverter-defibrillator) in place Z95.810 CPT Codes Cardiac Device Check - Cardiac Device 15: [id number] Cardiac Device Interrogation, cardio physiologic monitor ([id number])
== END ==
PROVIDERS: PCP Registered Nurse; Visit Provider Internal Medicine Cardiovascular Disease
DX: Z45.02 Encounter for adjustment and management of automatic implantable cardiac defibrillator (principal)
CPT/HCPCS: 93297

== ENCOUNTER 2023-11-01 10:55 | Outpatient (AMB) | payer OTHER, SELFPAY ==
--- NOTE | 2023-11-01 11:21 | MHC.OFFVIS ---
Intake Visit Reasons: 5M PSA/Testosterone(set) Intake Note: Patient is Present for Follow Up Urology Medication: Testosterone, Tadalafil,Sildenafil Antibiotic Allergies:None Blood Thinners:Aspirin Allergies avocado [AVOCADO] Allergy (Severe, Verified 11/01/23 11:23) HIVES/SOB lisinopril Allergy (Severe, Verified 11/01/23 11:23) Unknown passion fruit [PASSION FRUIT] Allergy (Severe, Verified 11/01/23 11:23) HIVES/SOB sacubitril [Entresto] Allergy (Severe, Verified 11/01/23 11:23) Unknown valsartan [Entresto] Allergy (Severe, Verified 11/01/23 11:23) Unknown soy [SOY] Allergy (Unknown, Verified 11/01/23 11:23) SWELLING HPI Comments Details: Mr Lehman is a very pleasant male. He is a patient of Dr Mejia. He is seen for the following urologic conditions. - hypogonadism - erectile dysfunction Six-month follow-up Lab work and range Good response to tadalafil Prescription refilled Continue testosterone Prescription refilled Injection day Tuesday, lab work Tuesday, Continues with therapeutic phlebotomy Erectile dysfunction related to diabetes Had been on demand Current medications include daily 10 mg tadalafil Hypogonadism:? He presents today for?further evaluation and followup of his hypogonadism - doing better with more energy since starting injections.? Initial symptoms include? erectile dysfunction ?Yes ? decreased libido ?Yes ? change in mood/depression ?Yes ? in muscle size/strength ?Yes ? increased fatigue/malaise ?Yes ? The onset of symptoms has been?gradual.? Associate conditions include? obstructive sleep apnea ?No ? CAD ?No ? diabetes ?Yes ? dyslipidemia ?Yes ? hypertension ?Yes ? He has been taking?antidepressants.? Laboratory results?baseline, testosterone Mar 2016 163 ?, followup Day of T injection 06/04 369 ?02/03 , PSA 0.2, , testosterone 404 - at 0.25 SQ 2x a week - will increase to 0.3 ?08/07 restart T at 0.25 ?12/05 T 275, 08/08 T 625, PSA 0.3, 02/05 T 377 PSA 0.28, 08/09 T 266, 02/07 T 484, PSA 0.3, 08/11 T 759 P 0.4 H 57.3, 02/08 T 231 h 53, 08/12 800 0.6 53, 09/10 330 Hct 52.5 ? Current therapy includes?injectable exogenous testosterone.? Response to therapy has been?improved, energy/wellbeing.? Diagnosis based on history and laboratory results?combined testicular insufficiency.? Therapeutic plan?continue current medication.? [facility] Medical History ICD (implantable cardioverter-defibrillator) in place HFrEF (heart failure with reduced ejection fraction) Nonischemic cardiomyopathy HTN (hypertension) Diabetes mellitus CAD (coronary artery disease) Surgical History History of carpal tunnel surgery H/O colonoscopy History of cardiac cath (~2016) Family History Father No problems noted. Mother No problems noted. Social History Household Members: Spouse Alcohol intake: former Patient Tobacco Use Status: Former Tobacco user Second Hand Smoke Exposure: No Review of Systems Const Denies chills and Denies fever(s) Card Reports no additional complaints and Denies syncope Resp Denies cough GI Denies abdominal pain and Denies heartburn Reports as per HPI and Denies change in libido Neuro Denies syncope Psych Denies change in libido Endo Denies change in libido Physical Exam Const General: cooperative, healthy appearing, comfortable and no acute distress Orientation/consciousness: patient oriented x3 HEENT Face and sinus: Yes normal facial exam Mouth: moist mucous membranes Neck Neck: Yes normal visual inspection, Yes full ROM and Yes trachea midline Chest Chest palpation & inspection: normal inspection of the chest Resp Effort & Inspection: normal respiratory effort, able to speak in complete sentences and no respiratory distress GI Inspection: Yes normal to inspection Back/Spine/Pelvis Cervical Spine: normal cervical lordosis Thoracic/Lumbar Spine: thoracic and lumbar spine normal to inspection Skin General skin exam: no rashes or lesions noted Neuro General: patient oriented x3, gait normal, tone normal and moves all extremities Extrem General: Yes normal to inspection and Yes capillary refill normal Assessment & Plan Assessment & Plan (1) Hypogonadism in male: Code(s): E29.1 - Testicular hypofunction Category: Medical (2) High hematocrit: Code(s): R71.8 - Other abnormality of red blood cells Category: Medical (3) Erectile dysfunction associated with type 2 diabetes mellitus: Code(s): E11.69 - Type 2 diabetes mellitus with other specified complication; N52.1 - Erectile dysfunction due to diseases classified elsewhere Category: Medical Plan Six month follow-up labs Orders: Orders Testosterone, Total 6 Months E29.1 - Testicular hypofunction Prostate Specific Antigen 6 Months E29.1 - Testicular hypofunction Complete Blood Count no Diff 6 Months E29.1 - Testicular hypofunction Medications: Refilled tadalafil 10 mg PO DAILY 90 days 90 tabs 1RF sexual activity E11.69 - Type 2 diabetes mellitus with other specified complication, N52.1 - Erectile dysfunction due to diseases classified elsewhere testosterone cypionate 80 mg (0.4 mL) subcut QWEEK 28 days 2 mL 5RF E29.1 - Testicular hypofunction Patient Instructions: Imaging studies, laboratory and physical exam results were discussed and reviewed in detail. No major barriers to patient understanding were identified. An opportunity to ask questions regarding the treatment plan was provided. All questions were answered. The patient expressed understanding and agreement with the above treatment plan. The patient is aware they should contact our office by phone for worsening of their current condition or the appearance of new urologic symptoms. Compliance is encouraged with any medications and followup testing that is ordered. It is a privilege to participate in the urologic care of your patient. If you have any questions or concerns regarding treatment for the above conditions, or other urologic issues, please do not hesitate to contact me. The office telephone contact is [phone]. This note is constructed using voice recognition software. While every effort has been made to ensure accuracy cigarette making machine hopper feeder errors may have been included. Yours sincerely, Dr Ac Marina MD, NIC[facility] - Urology Providers of Expert, Compassionate Care for the Genitourinary System Coding Level of Care Code Est Pt Level 4 (68898) Complex EM visit Add On G2211 Diagnoses Hypogonadism in male E29.1 High hematocrit R71.8 Erectile dysfunction associated with type 2 diabetes mellitus E11.69; N52.1
== END 2023-11-01 11:59 | disposition home or self-care (01) ==
PROVIDERS: PCP Registered Nurse; Visit Provider Urology
DX: E29.1 Testicular hypofunction (principal); R71.8 Other abnormality of red blood cells; E11.69 Type 2 diabetes mellitus with other specified complication; N52.1 Erectile dysfunction due to diseases classified elsewhere
CPT/HCPCS: 99214; G2211

== ENCOUNTER → 2023-11-01 10:55 | Outpatient (BNVA) | payer OTHER, SELFPAY | PROVIDERS: PCP Registered Nurse; Visit Provider Urology | DX: E29.1 Testicular hypofunction (principal); E11.69 Type 2 diabetes mellitus with other specified complication; N52.1 Erectile dysfunction due to diseases classified elsewhere; R71.8 Other abnormality of red blood cells; Z79.899 Other long term (current) drug therapy | CPT/HCPCS: 99212 ==

== ENCOUNTER 2023-11-09 12:18 | Outpatient (REF) | payer OTHER, SELFPAY ==
[2023-11-09 13:14] LABS: Hemoglobin 15.9 g/dl (14.0-18.0); Mean Corpuscular HGB Conc 31.2 g/dl (31.0-36.0); Mean Corpuscular Hemoglobin 24.7 pg (27.0-33.0); Mean Corpuscular Volume 79.3 fL (80.0-98.0); Mean Platelet Volume 10.5 fL (9.4-12.4); Platelet Count 263 X10*3/uL (160-400); Red Blood Count 6.43 X10*6/uL (4.60-5.80); Red Cell Distribution Width 18.7 % (11.0-16.0)
[2023-11-09 14:00] LABS: Alanine Aminotransferase 11 U/L (0-40); Albumin Level 4.4 g/dL (3.5-5.0); Alkaline Phosphatase 80 U/L (39-117); Anion Gap 16 (12-20); Aspartate Amino Transferase 16 U/L (5-37); Bilirubin Total 0.8 mg/dL (0.0-1.0); Blood Urea Nitrogen 21 mg/dL (9-16); Calcium 9.6 mg/dL (8.4-10.2); Carbon Dioxide 24 mmol/L (22-29); Chloride 102 mmol/L (96-108); Estimated Glomerular Filt Rate > 60; Glucose Random 109 mg/dL (60-115); Magnesium 2.1 mg/dL (1.6-2.6); Potassium 3.8 mmol/L (3.3-5.1); Sodium 138 mmol/L (135-145); Total Protein 7.8 g/dL (6.5-8.0)
[2023-11-09 14:09] LABS: Prostate Specific Antigen 0.33 ng/mL (<0.05-4.0)
[2023-11-13 16:24] LABS: Testosterone, Total 277 ng/dL (250-1100)
== END 2023-11-09 12:19 | disposition home or self-care (01) ==
LOC: HO.HHCL 12:18
PROVIDERS: Urology; Visit Provider Registered Nurse
DX: E29.1 Testicular hypofunction (principal); Z12.5 Encounter for screening for malignant neoplasm of prostate; R25.2 Cramp and spasm
CPT/HCPCS: 36415; 80053; 83735; 84153; 84403; 85027

== ENCOUNTER 2023-11-16 09:49 | Outpatient (REF) | payer OTHER, SELFPAY | END 2023-11-16 09:50 | disposition home or self-care (01) | LOC: HO.BBR 09:49 | PROVIDERS: PCP Registered Nurse; Visit Provider Urology | DX: Z79.899 Other long term (current) drug therapy (principal) | CPT/HCPCS: 85014; 85018; 99195 ==

== ENCOUNTER 2023-12-14 10:07 | Outpatient (REF) | payer OTHER, SELFPAY | END 2023-12-14 10:08 | disposition home or self-care (01) | LOC: HO.BBR 10:07 | PROVIDERS: PCP Registered Nurse; Visit Provider Urology | DX: R71.8 Other abnormality of red blood cells (principal) | CPT/HCPCS: 85014; 85018; 99195 ==

== ENCOUNTER → 2024-01-09 23:59 | Outpatient (BNV) | payer OTHER, SELFPAY ==
--- NOTE | 2024-01-11 10:11 | MHC.OFFVIS ---
Intake Visit Reasons: Remote ICD check- Biotronik Allergies avocado [AVOCADO] Allergy (Severe, Verified 11/01/23 11:23) HIVES/SOB lisinopril Allergy (Severe, Verified 11/01/23 11:23) Unknown passion fruit [PASSION FRUIT] Allergy (Severe, Verified 11/01/23 11:23) HIVES/SOB sacubitril [Entresto] Allergy (Severe, Verified 11/01/23 11:23) Unknown valsartan [Entresto] Allergy (Severe, Verified 11/01/23 11:23) Unknown soy [SOY] Allergy (Unknown, Verified 11/01/23 11:23) SWELLING [facility] Medical History ICD (implantable cardioverter-defibrillator) in place HFrEF (heart failure with reduced ejection fraction) Nonischemic cardiomyopathy HTN (hypertension) Diabetes mellitus CAD (coronary artery disease) Surgical History History of carpal tunnel surgery H/O colonoscopy History of cardiac cath (~2017) Family History Father No problems noted. Mother No problems noted. Social History Household Members: Spouse Alcohol intake: former Patient Tobacco Use Status: Former Tobacco user Second Hand Smoke Exposure: No Office Procedures Cardiac Device Check Cardiac Device Check Details: Remote ICD report generated 01/09/2024. ICD function is adequate [id number] Cardiac Interrogation, implant defibrillator w/interim Procedure code (CPT) selection complete Assessment & Plan Assessment & Plan (1) ICD (implantable cardioverter-defibrillator) in place: Comment: implanted 2018-Biotronik Code(s): Z95.810 - Presence of automatic (implantable) cardiac defibrillator Category: Medical Plan: See above Coding Level of Care Code Procedure Only Diagnoses ICD (implantable cardioverter-defibrillator) in place Z95.810 CPT Codes Cardiac Device Check - Cardiac Device 13: [id number] Cardiac Interrogation, implant defibrillator w/interim ([id number])
== END ==
PROVIDERS: PCP Registered Nurse; Visit Provider Internal Medicine Cardiovascular Disease
DX: Z45.02 Encounter for adjustment and management of automatic implantable cardiac defibrillator (principal)
CPT/HCPCS: 93295

== ENCOUNTER 2024-01-11 10:01 | Outpatient (REF) | payer OTHER, SELFPAY | END 2024-01-11 10:02 | disposition home or self-care (01) | LOC: HO.BBR 10:01 | PROVIDERS: PCP Registered Nurse; Visit Provider Urology | DX: R79.89 Other specified abnormal findings of blood chemistry (principal); Z79.890 Hormone replacement therapy | CPT/HCPCS: 85014; 85018; 99195 ==

== ENCOUNTER 2024-02-10 09:24 | Outpatient (REF) | payer OTHER, SELFPAY ==
[2024-02-10 13:15] LABS: MANUAL DIFF FLAG NO
[2024-02-10 13:40] LABS: Basophils Absolute Auto 0.1 X10*3/uL (0.0-0.2); Basophils Percent Auto 0.8 % (0-2); Eosinophils Absolute Auto 0.6 X10*3/uL (0.0-0.4); Eosinophils Percent Auto 5.4 % (0-4); Hematocrit 48.2 % (42.0-52.0); Hemoglobin 14.8 g/dl (14.0-18.0); Imm Gran Abs Auto 0.04 X10*3/uL (0.00-0.03); Imm Gran Pct Auto 0.4 % (0.0-0.4); Lymphocytes Absolute Auto 2.3 X10*3/uL (1.2-4.9); Lymphocytes Percent Auto 21.7 % (20-40); Mean Corpuscular HGB Conc 30.7 g/dl (31.0-36.0); Mean Corpuscular Hemoglobin 25.2 pg (27.0-33.0); Mean Corpuscular Volume 82.1 fL (80.0-98.0); Mean Platelet Volume 12.5 fL (9.4-12.4); Monocytes Absolute Auto 0.8 X10*3/uL (0.1-1.2); Monocytes Percent Auto 7.9 % (2-11); Neutrophils Absolute Auto 6.8 x10*3/uL (2.0-8.3); Neutrophils Percent Auto 63.8 % (45-73); Platelet Count 241 X10*3/uL (160-400); Red Blood Count 5.87 X10*6/uL (4.60-5.80); Red Cell Distribution Width 15.5 % (11.0-16.0); White Blood Count 10.6 X10*3/uL (4.8-10.8)
== END 2024-02-10 09:25 | disposition home or self-care (01) ==
LOC: HO.HHCL 09:24
PROVIDERS: Visit Provider Registered Nurse
DX: E11.49 Type 2 diabetes mellitus with other diabetic neurological complication (principal)
CPT/HCPCS: 36415; 85025

== ENCOUNTER → 2024-02-10 23:59 | Outpatient (BNV) | payer OTHER, SELFPAY ==
--- NOTE | 2024-02-13 13:00 | A.OFFVIS_ITS ---
Intake Visit Reasons: REmote HF monitoring- Biotronik Allergies avocado [AVOCADO] Allergy (Severe, Verified 11/01/23 11:23) HIVES/SOB lisinopril Allergy (Severe, Verified 11/01/23 11:23) Unknown passion fruit [PASSION FRUIT] Allergy (Severe, Verified 11/01/23 11:23) HIVES/SOB sacubitril [Entresto] Allergy (Severe, Verified 11/01/23 11:23) Unknown valsartan [Entresto] Allergy (Severe, Verified 11/01/23 11:23) Unknown soy [SOY] Allergy (Unknown, Verified 11/01/23 11:23) SWELLING [facility] Medical History ICD (implantable cardioverter-defibrillator) in place HFrEF (heart failure with reduced ejection fraction) Nonischemic cardiomyopathy HTN (hypertension) Diabetes mellitus CAD (coronary artery disease) Surgical History History of carpal tunnel surgery H/O colonoscopy History of cardiac cath (~2017) Family History Father No problems noted. Mother No problems noted. Social History Household Members: Spouse Alcohol intake: former Patient Tobacco Use Status: Former Tobacco user Second Hand Smoke Exposure: No Office Procedures Cardiac Device Check Cardiac Device Check Details: Remote heart failure report generated 02/10/2024. Heart failure parameters are stable [id number] Cardiac Device Interrogation, cardio physiologic monitor Procedure code (CPT) selection complete Assessment & Plan Assessment & Plan (1) ICD (implantable cardioverter-defibrillator) in place: Comment: implanted 2018-Biotronik Code(s): Z95.810 - Presence of automatic (implantable) cardiac defibrillator Category: Medical Plan: See above Coding Level of Care Code Procedure Only Diagnoses ICD (implantable cardioverter-defibrillator) in place Z95.810 CPT Codes Cardiac Device Check - Cardiac Device 15: [id number] Cardiac Device Interrogation, cardio physiologic monitor ([id number])
== END ==
PROVIDERS: PCP Registered Nurse; Visit Provider Internal Medicine Cardiovascular Disease
DX: Z45.02 Encounter for adjustment and management of automatic implantable cardiac defibrillator (principal)
CPT/HCPCS: 93297

== ENCOUNTER 2024-03-08 09:54 | Outpatient (REF) | payer OTHER, SELFPAY | END 2024-03-08 09:55 | disposition home or self-care (01) | LOC: HO.BBR 09:54 | PROVIDERS: PCP Registered Nurse; Visit Provider Urology | DX: R71.8 Other abnormality of red blood cells (principal); Z79.890 Hormone replacement therapy | CPT/HCPCS: 85014; 85018; 99195 ==

== ENCOUNTER 2024-03-12 13:05 | Outpatient (AMB) | payer OTHER, SELFPAY ==
[2024-03-12 13:39] VITALS: BP 120/80; PULSE 67; BMI 32.7
--- NOTE | 2024-03-12 13:39 | A.OFFVIS_ITS ---
Vital Signs 03/12/24 13:39 Height 5 ft 5.6 in Weight 200 lb BMI 32.7 BP 120/80 Blood Pressure Location Lt brachial Position Sitting Pulse 67 Intake Visit Reasons: 6 mth w/ biotronik Intake Note: 6 month follow-up biotronick c/o fatigue Power Operator Required: No Allergies avocado [AVOCADO] Allergy (Severe, Verified 11/01/23 11:23) HIVES/SOB lisinopril Allergy (Severe, Verified 11/01/23 11:23) Unknown passion fruit [PASSION FRUIT] Allergy (Severe, Verified 11/01/23 11:23) HIVES/SOB sacubitril [Entresto] Allergy (Severe, Verified 11/01/23 11:23) Unknown valsartan [Entresto] Allergy (Severe, Verified 11/01/23 11:23) Unknown soy [SOY] Allergy (Unknown, Verified 11/01/23 11:23) SWELLING Medication List - Last Reconciled 03/12/24 by Ramin Pillai MD acetaminophen-codeine 300-60 mg 1 tab PO TID PRN albuterol sulfate 90 mcg/actuation 1 inh inhalation Q4H PRN aspirin 81 mg PO QAM atorvastatin 40 mg PO BEDTIME blood sugar diagnostic (FreeStyle Lite Strips) As directed budesonide-formoterol 160-4.5 mcg/actuation (Symbicort) 2 puffs inhalation BID carvedilol 25 mg PO BID cholecalciferol (vitamin D3) 50 mcg PO DAILY citalopram 10 mg PO DAILY cyanocobalamin (vitamin B-12) 1,000 mcg PO DAILY diclofenac sodium 1% (Arthritis Pain (diclofenac)) 4 grams topical QID PRN 30 da ys dulaglutide (Trulicity) mg subcut empagliflozin (Jardiance) 25 mg PO DAILY esomeprazole magnesium (Nexium) 40 mg PO TID 14 days furosemide 40 mg PO QAM gabapentin TAKE 1 CAPSULE BY MOUTH AT BEDTIME hydralazine 50 mg PO BID insulin syringe-needle U-100 Use once a week to inject testosterone lancets (TRUEplus Lancets) As directed metformin 1,000 mg PO omeprazole 20 mg PO DAILY quetiapine 50 mg PO BEDTIME sildenafil 100 mg PO DAILY PRN 30 days tadalafil 10 mg PO DAILY 90 days testosterone cypionate 80 mg (0.4 mL) subcut QWEEK 28 days zolpidem 5 mg PO BEDTIME HPI Comments Details: Andry comes for follow-up. He denies any active cardiac symptoms of heart failure. Denies any worsening shortness of breath, orthopnea, PND, leg edema. He complains of symptoms of fatigue but he says that he has lot of stress related to his 's health. He denies any exertional chest pain. No lightheadedness, syncope. No prolonged palpitations, irregular heartbeat, ICD discharge. Takes all his medications. Last echocardiogram showed normalized LV EF of 55-60%. [facility] Medical History (Updated 03/12/24 @ 14:01 by Ramin Pillai MD) HFrEF (heart failure with reduced ejection fraction) ICD (implantable cardioverter-defibrillator) in place Nonischemic cardiomyopathy HTN (hypertension) Diabetes mellitus CAD (coronary artery disease) Surgical History History of carpal tunnel surgery H/O colonoscopy History of cardiac cath (~2017) Family History Father No problems noted. Mother No problems noted. Social History Household Members: Spouse Alcohol intake: former Patient Tobacco Use Status: Former Tobacco user Second Hand Smoke Exposure: No Review of Systems Const Denies chills, Denies fatigue, Denies fever(s), Denies frequent falls, Denies weakness, Denies weight gain and Denies weight loss ENT Denies dizziness Card Denies chest pain, Denies leg edema, Denies lightheadedness, Denies palpitatio ns, Denies dyspnea, Denies dyspnea on exertion, Denies orthopnea and Denies other (loss of consciousness) Resp Denies cough, Denies dyspnea and Denies dyspnea on exertion GI Denies hematochezia and Denies change in stool character Musc Denies abnormal gait, Denies muscle weakness, Denies numbness, Denies radiating pain into limb and Denies tingling Neuro Denies abnormal gait, Denies dizziness, Denies frequent falls, Denies numbness, Denies tingling and Denies weakness Endo Denies fatigue and Denies palpitations Physical Exam Vital Signs: Last Vital Signs Pulse 67 03/12/24 13:39 BP 120/80 03/12/24 13:39 BMI result Body Mass Index 32.7 Const General: cooperative, comfortable, no acute distress, alert, awake and well groomed Nutritional Appearance: overweight Orientation/consciousness: patient oriented x3 Limitations: no limitations Neck Neck: Yes trachea midline, Yes supple and Yes no JVD Resp Effort & Inspection: normal respiratory effort Auscultation: clear to auscultation bilaterally Cardio Jugular venous distension: no JVD Palpation: normal PMI Rate: regular rate Rhythm: regular rhythm Heart sounds: S1 normal heart sound present, S2 normal heart sound present, no click, no gallops, no murmurs and no rubs GI Auscultation: normal bowel sounds Skin General skin exam: no rashes or lesions noted Neuro General: patient oriented x3 and no focal motor deficits Extrem General: Yes no clubbing, cyanosis or edema Psych Appearance: grossly normal Office Procedures Cardiac Device Check Cardiac Device Check Details: Single-chamber Biotronik ICD in place. Programmed in VVI at 40 beats per minute. Few episodes of fast ventricular rate consistent with SVT noted. Ventricular sensing was excellent. Ventricular pacing and shock lead impedance is stable. Ventricular pacing thresholds adequate. Battery life is at 49% [id number] Cardiac Device Check, single lead implantable defibrillator Procedure code (CPT) selection complete Assessment & Plan Assessment & Plan (1) Nonischemic cardiomyopathy: Code(s): I42.8 - Other cardiomyopathies Category: Medical Plan: Nonischemic cardiomyopathy with heart failure syndrome. Heart failure syndrome and is resolved. Currently not on any diuretic regimen. LV systolic function is also improved with neurohormonal modulation. Signs and symptoms of heart failure were discussed. Daily weight monitoring avoidance of salt loading was discussed. Continue current neurohormonal modulation carvedilol as well as Jardiance. Also on vasodilators therapy with hydralazine. Continue aggressive blood pressure control. Importance of regular physical activity was discussed. Follow up in the clinic in 1 year's time after echocardiogram. (2) CAD (coronary artery disease): Code(s): I25.10 - Atherosclerotic heart disease of [place] coronary artery without angina pectoris Category: Medical Plan: CAD with 70% mid LAD lesion without any symptoms of angina at current point time. Encouraged to continue to participate in physical activity as tolerated. Continue aggressive risk factor modification. Continue lifelong low-dose aspirin therapy. Continue aggressive diabetes management goal hemoglobin A1c less than 7%. Goal blood pressure well optimized at this point time. Target goal blood pressure less than 130/84. Continue high-intensity statin therapy with target goal LDL closer to 60 mg/dL. Advised to maintain activity level as tolerated. Advised to call me with any anginal symptoms. (3) ICD (implantable cardioverter-defibrillator) in place: Comment: implanted 2018-NexBioronik Code(s): Z95.810 - Presence of automatic (implantable) cardiac defibrillator Category: Medical Plan: ICD in place for primary prevention. ICD is working well. Will follow remotely on a monthly basis for heart failure as well as for device check. Follow up in the clinic in 1 year's time, sooner p.r.n.. Thank you for allowing me to partake in his care Orders: Orders CA echo transthoracic complete 1 Year I42.8 - Other cardiomyopathies Coding Level of Care Code Est Pt Level 4 (19401) Diagnoses Nonischemic cardiomyopathy I42.8 CAD (coronary artery disease) I25.10 ICD (implantable cardioverter-defibrillator) in place Z95.810 CPT Codes Cardiac Device Check - Cardiac Device 4: [id number] Cardiac Device Check, single lead implantable defibrillator ([id number])
== END 2024-03-12 14:13 | disposition home or self-care (01) ==
PROVIDERS: PCP Registered Nurse; Visit Provider Internal Medicine Cardiovascular Disease
DX: I42.8 Other cardiomyopathies (principal); I25.10 Atherosclerotic heart disease of native coronary artery without angina pectoris; Z95.810 Presence of automatic (implantable) cardiac defibrillator
CPT/HCPCS: 93282; 99214

== ENCOUNTER → 2024-03-12 13:05 | Outpatient (BNVA) | payer OTHER, SELFPAY | PROVIDERS: PCP Registered Nurse; Visit Provider Internal Medicine Cardiovascular Disease | DX: I42.8 Other cardiomyopathies (principal); I25.10 Atherosclerotic heart disease of native coronary artery without angina pectoris; Z95.810 Presence of automatic (implantable) cardiac defibrillator | CPT/HCPCS: 99212 ==

== ENCOUNTER → 2024-03-12 23:59 | Outpatient (BNV) | payer OTHER, SELFPAY ==
--- NOTE | 2024-03-14 13:18 | A.OFFVIS_ITS ---
Intake Visit Reasons: Remote HF moniitoring- Biotronik Allergies avocado [AVOCADO] Allergy (Severe, Verified 11/01/23 11:23) HIVES/SOB lisinopril Allergy (Severe, Verified 11/01/23 11:23) Unknown passion fruit [PASSION FRUIT] Allergy (Severe, Verified 11/01/23 11:23) HIVES/SOB sacubitril [Entresto] Allergy (Severe, Verified 11/01/23 11:23) Unknown valsartan [Entresto] Allergy (Severe, Verified 11/01/23 11:23) Unknown soy [SOY] Allergy (Unknown, Verified 11/01/23 11:23) SWELLING [facility] Medical History (Updated 03/12/24 @ 14:01 by Ramin Pillai MD) HFrEF (heart failure with reduced ejection fraction) ICD (implantable cardioverter-defibrillator) in place Nonischemic cardiomyopathy HTN (hypertension) Diabetes mellitus CAD (coronary artery disease) Surgical History History of carpal tunnel surgery H/O colonoscopy History of cardiac cath (~2017) Family History Father No problems noted. Mother No problems noted. Social History Household Members: Spouse Alcohol intake: former Patient Tobacco Use Status: Former Tobacco user Second Hand Smoke Exposure: No Office Procedures Cardiac Device Check Cardiac Device Check Details: Remote heart failure report generated 03/10/2024. Heart failure parameters are stable [id number] Cardiac Device Interrogation, cardio physiologic monitor Procedure code (CPT) selection complete Assessment & Plan Assessment & Plan (1) ICD (implantable cardioverter-defibrillator) in place: Comment: implanted 2018-Biotronik Code(s): Z95.810 - Presence of automatic (implantable) cardiac defibrillator Category: Medical Plan: See above Coding Level of Care Code Procedure Only Diagnoses ICD (implantable cardioverter-defibrillator) in place Z95.810 CPT Codes Cardiac Device Check - Cardiac Device 15: [id number] Cardiac Device Interrogation, cardio physiologic monitor ([id number])
== END ==
PROVIDERS: PCP Registered Nurse; Visit Provider Internal Medicine Cardiovascular Disease
DX: Z45.02 Encounter for adjustment and management of automatic implantable cardiac defibrillator (principal)
CPT/HCPCS: 93297

== ENCOUNTER → 2024-04-10 23:59 | Outpatient (BNV) | payer OTHER, SELFPAY ==
--- NOTE | 2024-04-23 17:21 | MHC.OFFVIS ---
Intake Visit Reasons: Remote ICD check- Biotronik Allergies avocado [AVOCADO] Allergy (Severe, Verified 11/01/23 11:23) HIVES/SOB lisinopril Allergy (Severe, Verified 11/01/23 11:23) Unknown passion fruit [PASSION FRUIT] Allergy (Severe, Verified 11/01/23 11:23) HIVES/SOB sacubitril [Entresto] Allergy (Severe, Verified 11/01/23 11:23) Unknown valsartan [Entresto] Allergy (Severe, Verified 11/01/23 11:23) Unknown soy [SOY] Allergy (Unknown, Verified 11/01/23 11:23) SWELLING [facility] Medical History (Updated 03/12/24 @ 14:01 by Ramin Pillai MD) HFrEF (heart failure with reduced ejection fraction) ICD (implantable cardioverter-defibrillator) in place Nonischemic cardiomyopathy HTN (hypertension) Diabetes mellitus CAD (coronary artery disease) Surgical History History of carpal tunnel surgery H/O colonoscopy History of cardiac cath (~2017) Family History Father No problems noted. Mother No problems noted. Social History Household Members: Spouse Alcohol intake: former Patient Tobacco Use Status: Former Tobacco user Second Hand Smoke Exposure: No Office Procedures Cardiac Device Check Cardiac Device Check Details: Remote ICD report generated 04/10/2024. ICD function is adequate [id number] Cardiac Interrogation, implant defibrillator w/interim Procedure code (CPT) selection complete Assessment & Plan Assessment & Plan (1) ICD (implantable cardioverter-defibrillator) in place: Comment: implanted 2018-Biotronik Code(s): Z95.810 - Presence of automatic (implantable) cardiac defibrillator Category: Medical Plan: See above Coding Level of Care Code Procedure Only Diagnoses ICD (implantable cardioverter-defibrillator) in place Z95.810 CPT Codes Cardiac Device Check - Cardiac Device 13: [id number] Cardiac Interrogation, implant defibrillator w/interim ([id number])
== END ==
PROVIDERS: PCP Registered Nurse; Visit Provider Internal Medicine Cardiovascular Disease
DX: Z45.02 Encounter for adjustment and management of automatic implantable cardiac defibrillator (principal)
CPT/HCPCS: 93295

== ENCOUNTER 2024-04-18 09:55 | Outpatient (REF) | payer OTHER, SELFPAY | END 2024-04-18 09:56 | disposition home or self-care (01) | LOC: HO.BBR 09:55 | PROVIDERS: PCP Registered Nurse; Visit Provider Urology | DX: R71.8 Other abnormality of red blood cells (principal) | CPT/HCPCS: 85014; 85018; 99195 ==

== ENCOUNTER 2024-04-23 10:15 | Outpatient (REF) | payer OTHER, SELFPAY | END 2024-04-23 10:16 | disposition home or self-care (01) | LOC: HO.LAB 10:15 | PROVIDERS: PCP Registered Nurse; Visit Provider Urology | DX: Z13.89 Encounter for screening for other disorder (principal) ==

== ENCOUNTER 2024-04-27 11:09 | Outpatient (REF) | payer OTHER, SELFPAY ==
[2024-04-27 12:02] LABS: Hematocrit 51.2 % (42.0-52.0); Hemoglobin 15.8 g/dl (14.0-18.0); Mean Corpuscular HGB Conc 30.9 g/dl (31.0-36.0); Mean Corpuscular Hemoglobin 25.6 pg (27.0-33.0); Mean Corpuscular Volume 82.8 fL (80.0-98.0); Mean Platelet Volume 10.3 fL (9.4-12.4); Platelet Count 265 X10*3/uL (160-400); Red Blood Count 6.18 X10*6/uL (4.60-5.80); Red Cell Distribution Width 16.7 % (11.0-16.0); White Blood Count 11.1 X10*3/uL (4.8-10.8)
[2024-05-02 15:24] LABS: Testosterone, Total 550 ng/dL (250-1100)
== END 2024-04-27 11:10 | disposition home or self-care (01) ==
LOC: HO.LAB 11:09
PROVIDERS: PCP Registered Nurse; Visit Provider Urology
DX: E29.1 Testicular hypofunction (principal)
CPT/HCPCS: 36415; 84403; 85027

== ENCOUNTER 2024-05-02 11:09 | Outpatient (AMB) | payer OTHER, SELFPAY ==
--- NOTE | 2024-05-02 11:10 | MHC.OFFVIS ---
Intake Visit Reasons: 5M PSA/Testo/CBC(Testo Redo?) Intake Note: Patient is present for PSA/Testo follow up Urology Med: Sildenafil, Tadalafil, Testosterone Antibiotic Allergy: None Blood Thinner: Aspirin PSA: 11/09/23- 0.33 Total Testosterone: 11/09/23- 277 (Done Early) 04/27/24- Pending B2B Outside Sales Representative Required: No Accompanied by: Self / Same As Patient Allergies avocado [AVOCADO] Allergy (Severe, Verified 05/02/24 11:14) HIVES/SOB lisinopril Allergy (Severe, Verified 05/02/24 11:14) Unknown passion fruit [PASSION FRUIT] Allergy (Severe, Verified 05/02/24 11:14) HIVES/SOB sacubitril [Entresto] Allergy (Severe, Verified 05/02/24 11:14) Unknown valsartan [Entresto] Allergy (Severe, Verified 05/02/24 11:14) Unknown soy [SOY] Allergy (Unknown, Verified 05/02/24 11:14) SWELLING HPI Comments Details: Mr Lehman is a very pleasant male. He is a patient of Dr Mejia. He is seen for the following urologic conditions. - hypogonadism - erectile dysfunction Telemedicine Evaluation 15 min Consultation [employer] Six-month follow-up Lab work and range Good response to tadalafil Prescription refilled Continue testosterone Prescription refilled Injection day Tuesday, lab work Tuesday, Continues with therapeutic phlebotomy - only has happened 1 time in past 4 months Erectile dysfunction related to diabetes Had been on demand Current medications include daily 10 mg tadalafil Hypogonadism:? He presents today for?further evaluation and followup of his hypogonadism - doing better with more energy since starting injections.? Initial symptoms include? erectile dysfunction ?Yes ? decreased libido ?Yes ? change in mood/depression ?Yes ? in muscle size/strength ?Yes ? increased fatigue/malaise ?Yes ? The onset of symptoms has been?gradual.? Associate conditions include? obstructive sleep apnea ?No ? CAD ?No ? diabetes ?Yes ? dyslipidemia ?Yes ? hypertension ?Yes ? He has been taking?antidepressants.? Laboratory results?baseline, testosterone Mar 2016 163 ?, followup Day of T injection 06/04 369 ?02/03 , PSA 0.2, , testosterone 404 - at 0.25 SQ 2x a week - will increase to 0.3 ?08/07 restart T at 0.25 ?12/05 T 275, 08/08 T 625, PSA 0.3, 02/05 T 377 PSA 0.28, 08/09 T 266, 02/07 T 484, PSA 0.3, 08/11 T 759 P 0.4 H 57.3, 02/08 T 231 h 53, 08/12 800 0.6 53, 09/10 330 Hct 52.5 ? Current therapy includes?injectable exogenous testosterone.? Response to therapy has been?improved, energy/wellbeing.? Diagnosis based on history and laboratory results?combined testicular insufficiency.? Therapeutic plan?continue current medication.? [facility] Medical History HFrEF (heart failure with reduced ejection fraction) ICD (implantable cardioverter-defibrillator) in place Nonischemic cardiomyopathy HTN (hypertension) Diabetes mellitus CAD (coronary artery disease) Surgical History History of carpal tunnel surgery H/O colonoscopy History of cardiac cath (~2016) Family History Father No problems noted. Mother No problems noted. Social History Household Members: Spouse Alcohol intake: former Patient Tobacco Use Status: Former Tobacco user Second Hand Smoke Exposure: No Telehealth Telehealth Telehealth Platform: [employer] Location of provider rendering services: practice address Location of patient: address on file Patient Identification confirmed using: Name, : Yes Telehealth method: video Patient verbally consented to treatment: Yes Patient verbally consented to billing insurance company: Yes Patient informed of any privacy concerns related to visit: Yes Minutes spent on Phone/Video with Pt.: 15 Assessment & Plan Assessment & Plan (1) Erectile dysfunction associated with type 2 diabetes mellitus: Code(s): E11.69 - Type 2 diabetes mellitus with other specified complication; N52.1 - Erectile dysfunction due to diseases classified elsewhere Category: Medical (2) Hypogonadism in male: Code(s): E29.1 - Testicular hypofunction Category: Medical Plan Six-month follow-up Continue testosterone in daily tadalafil Orders: Orders Complete Blood Count no Diff 04/27/24 E29.1 - Testicular hypofunction Testosterone, Total 6 Months E29.1 - Testicular hypofunction Complete Blood Count no Diff 6 Months E29.1 - Testicular hypofunction Testosterone, Total 04/27/24 E29.1 - Testicular hypofunction Prostate Specific Antigen 6 Months E29.1 - Testicular hypofunction Medications: Refilled testosterone cypionate 80 mg (0.4 mL) subcut QWEEK 2 mL 5RF 28 days E29.1 - Testicular hypofunction Patient Instructions: Imaging studies, laboratory and physical exam results were discussed and reviewed in detail. No major barriers to patient understanding were identified. An opportunity to ask questions regarding the treatment plan was provided. All questions were answered. The patient expressed understanding and agreement with the above treatment plan. The patient is aware they should contact our office by phone for worsening of their current condition or the appearance of new urologic symptoms. Compliance is encouraged with any medications and followup testing that is ordered. It is a privilege to participate in the urologic care of your patient. If you have any questions or concerns regarding treatment for the above conditions, or other urologic issues, please do not hesitate to contact me. The office telephone contact is [phone]. This note is constructed using voice recognition software. While every effort has been made to ensure accuracy inspector eyeglass errors may have been included. Yours sincerely, Dr Ac Marina MD, [facility] - Urology Providers of Expert, Compassionate Care for the Genitourinary System Coding Level of Care Code Tele Est Pt Level 3 (91002) Diagnoses Erectile dysfunction associated with type 2 diabetes mellitus E11.69; N52.1 Hypogonadism in male E29.1
== END 2024-05-02 11:56 | disposition home or self-care (01) ==
LOC: HO.HUSH 11:09
PROVIDERS: PCP Registered Nurse; Visit Provider Urology
DX: E11.69 Type 2 diabetes mellitus with other specified complication (principal); N52.1 Erectile dysfunction due to diseases classified elsewhere; E29.1 Testicular hypofunction
CPT/HCPCS: 99213

== ENCOUNTER → 2024-05-02 11:09 | Outpatient (BNVA) | payer OTHER, SELFPAY | PROVIDERS: PCP Registered Nurse; Visit Provider Urology ==

== ENCOUNTER 2024-05-12 15:45 | Emergency (ER) | payer SELFPAY ==
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
[2024-05-12 15:48] VITALS: BP 154/86; PULSE 78; O2SAT 95
[2024-05-12 15:54] VITALS: BP 123/70; PULSE 75; RESP 18; TEMP 36.4; O2SAT 97
[2024-05-12 15:58] VITALS: BP 123/70; PULSE 75; RESP 18; TEMP 36.4; O2SAT 95; BMI 35.6
[2024-05-12] MEDS: Butalb/Acetamin/Caff 50/325/40 TABLET 1 TAB PO (18:01)
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
[2024-05-12 19:04] VITALS: BP 130/57; PULSE 77; RESP 18; TEMP 36.5; O2SAT 92
--- NOTE | 2024-05-12 19:20 | PC.NURSE ---
This RN assumed pt care @ 1900. Pt ambulating in the room with a steady gait. Pt a&ox3, no signs of distress. Plan of care ongoing.
[2024-05-12 19:22] VITALS: RESP 18
--- NOTE | 2024-05-12 19:28 | PC.NURSE ---
Pt requested and poc checked POC @ 107 Pt requested and given food and drink Plan of care ongoing.
[2024-05-12 19:31] LABS: Glucose, Whole Blood 107 mg/dL (60-115)
[2024-05-12 20:22] VITALS: BP 130/57; PULSE 77; RESP 18; TEMP 36.5; O2SAT 92
== END 2024-05-12 20:27 | disposition home or self-care (01) ==
PROVIDERS: Emergency Provider Internal Medicine; PCP Registered Nurse
DX: S16.1XXA Strain of muscle, fascia and tendon at neck level, initial encounter (principal); V43.52XA Car driver injured in collision with other type car in traffic accident, initial encounter; E11.9 Type 2 diabetes mellitus without complications; I10 Essential (primary) hypertension; Y93.89 Activity, other specified; Y92.410 Unspecified street and highway as the place of occurrence of the external cause; Y99.9 Unspecified external cause status
CPT/HCPCS: 70450; 72125; 73030; 82947; 99284

== ENCOUNTER 2024-05-21 09:46 | Outpatient (REF) | payer OTHER, SELFPAY | END 2024-05-21 09:47 | disposition home or self-care (01) | LOC: HO.BBR 09:46 | PROVIDERS: PCP Registered Nurse; Visit Provider Urology | DX: D75.1 Secondary polycythemia (principal) | CPT/HCPCS: 85014; 85018; 99195 ==

== ENCOUNTER → 2024-07-09 23:59 | Outpatient (BNV) | payer OTHER, SELFPAY ==
--- NOTE | 2024-07-09 14:44 | MHC.OFFVIS ---
Intake Visit Reasons: Remote ICD check- [employer] Allergies avocado [AVOCADO] Allergy (Severe, Verified 05/12/24 16:01) HIVES/SOB lisinopril Allergy (Severe, Verified 05/02/24 11:14) Unknown passion fruit [PASSION FRUIT] Allergy (Severe, Verified 05/02/24 11:14) HIVES/SOB sacubitril [Entresto] Allergy (Severe, Verified 05/02/24 11:14) Unknown valsartan [Entresto] Allergy (Severe, Verified 05/02/24 11:14) Unknown soy [SOY] Allergy (Unknown, Verified 05/02/24 11:14) SWELLING acetaminophen [From Percocet] Adverse Reaction (Verified 05/12/24 15:58) Gastrointestinal Upset oxycodone [From Percocet] Adverse Reaction (Verified 05/12/24 15:58) Gastrointestinal Upset PFSH Medical History HFrEF (heart failure with reduced ejection fraction) ICD (implantable cardioverter-defibrillator) in place Nonischemic cardiomyopathy HTN (hypertension) Diabetes mellitus CAD (coronary artery disease) Surgical History History of carpal tunnel surgery H/O colonoscopy History of cardiac cath (~2017) Family History Father No problems noted. Mother No problems noted. Social History Household Members: Spouse Alcohol intake: former Patient Tobacco Use Status: Former Tobacco user Second Hand Smoke Exposure: No Office Procedures Cardiac Device Check Cardiac Device Check Details: Remote ICD report generated 07/09/2024. ICD function is adequate [id number] Cardiac Interrogation, implant defibrillator w/interim Procedure code (CPT) selection complete Assessment & Plan Assessment & Plan (1) ICD (implantable cardioverter-defibrillator) in place: Comment: implanted 2018-[employer]ron[employer] Code(s): Z95.810 - Presence of automatic (implantable) cardiac defibrillator Category: Medical Plan: See above Coding Level of Care Code Procedure Only Diagnoses ICD (implantable cardioverter-defibrillator) in place Z95.810 CPT Codes Cardiac Device Check - Cardiac Device 13: [id number] Cardiac Interrogation, implant defibrillator w/interim ([id number])
== END ==
PROVIDERS: PCP Registered Nurse; Visit Provider Internal Medicine Cardiovascular Disease
DX: Z45.02 Encounter for adjustment and management of automatic implantable cardiac defibrillator (principal)
CPT/HCPCS: 93295

== ENCOUNTER 2024-07-23 09:02 | Outpatient (REF) | payer OTHER, SELFPAY ==
--- OUTSIDE RECORDS SUMMARY | 2024-07-23 09:24 | XMS_ITS | Encounter Summary ---
Author Organization [employer] Address [address] [facility] 7t [place] [address] Care Team Providers Care Sales Management Intern Name Role Phone [place] [facility] Primary Care Provider [phone] Reason for Visit * Reason Comments Med Refill Encounter Details Date Type Department Care Team ([facility] st Contact Info) Description 01/08/2024 Refill [facility] MEDICINE [address] [place], [place] [phone] [place] [facility] [address] [place], [place] [phone] Moderate persistent asthma without complication Social History Tobacco Use Types Packs/Day Years Used Date Smoking Tobacco: Former Cigarettes Smokeless Tobacco: Never Alcohol Use Standard Drinks/Week Comments Never 0 (1 standard drink = 0.6 oz pur e alcohol) Depression Answer Date Recorded Patient Health Questionnaire-9 Score 0 11/09/2023 Patient Health Questionnaire-9 Score 0 11/09/2023 Last PHQ-9: Questionnaire Data Not on file 0 11/09/2023 Housing Stability Answer Date Recorded What is your housing situation today? I have kishor richards 04/04/[address] you li ve. Do you have problems with any of the following? None of the above 04/04/2023 Food Insecurity Answer Date Recorded Within the past 12 months, y ou worried that your food would run out before you got money to buy more: Never True 04/04/2023 Within the past 12 months,th e food you bought just didn't last and you didn't have enough money to get more: Never True Transportation Answer Date Recorded In the past 12 months, has l ack of transportation kept you from medical appts, meetings, work or from getting things needed for daily living? No 04/04/2023 Utilities Answer Date Recorded In the past 12 months, has t he electric, gas, oil or water company threatened to shut off services in your home? No 04/04/2023 Depression Answer Date Recorded Patient Health Questionnaire-2 Score 0 11/09/2023 Sex and Gender Information Value Date Recorded Sex Assigned at Male 04/19/2022 10:29 AM EDT Legal Sex Male 10:29 AM EDT Gender Identity Male 04/19/2022 10:29 AM EDT Sexual Orientation Straight 04/19/2022 10 :29 AM EDT documented as of this encounter Plan of Treatment Upcoming Encounters Date Type Department Care Team (Late st Contact Info) Description 08/03/2024 9:15 AM EST Office Visit [facility] MEDICINE [address] [place] [address] Carmen Mejia FNP [address] [place] [address] 09/25/2024 11:00 AM EDT Office Visit [address] [address] documented as of this encounter Visit Diagnoses Diagnosis Moderate persistent asthma without complication documented in this encounter Additional Health Concerns Assessment Noted Time PHQ-9 Depression Total Score: 0 11/09/19 24 9:34 AM EDT documented as of this encounter Care Teams Sales Management Intern Relationship Specialty Start Date End Date Carmen Mejia FNP [address] [place] [address] PCP - General Family Medicine 03/18/21 documented as of this encounter
--- OUTSIDE RECORDS SUMMARY | 2024-07-23 09:24 | XMS_ITS | Encounter Summary ---
Author Organization [facility] Address [address] [place] [address] 7t [place] [address] Care Team Providers Care Pc Technician Name Role Phone Roberto Carmen [facility] Primary Care Provider Encounter Details Date Type Department Care Team (Late st Contact Info) Description 06/11/2022 Orders Only [facility] CHC MED & PEDS [address] [place] [address] Ritika Mcgovern LPN Social History Tobacco Use Types Packs/Day Years Used Date Smoking Tobacco: Never Assessed Sex and Gender Information Value Date Recorded Sex Assigned at Male 04/19/2022 10:29 AM EDT Legal Sex Male 10:29 AM EDT Gender Identity Male 04/19/2022 10:29 AM EDT Sexual Orientation Straight 04/19/2022 10 :29 AM EDT documented as of this encounter Plan of Treatment Upcoming Encounters Date Type Department Care Team (Late st Contact Info) Description 08/03/2024 9:15 AM EST Office Visit [address] [address] Carmen Mejia [address] [address] 09/25/2024 11:00 AM EDT Office Visit [address] [address] documented as of this encounter Visit Diagnoses Not on filedocumented in this encounter Care Teams Pc Technician Relationship Specialty Start Date End Date Carmen Mejia FNP [address] [place] [address] PCP - General Family Medicine 03/18/21 documented as of this encounter
--- OUTSIDE RECORDS SUMMARY | 2024-07-23 09:24 | XMS_ITS | Encounter Summary ---
Author Organization [employer] [facility] Address [address] [place] [address] 7t [place] [address] Care Team Providers Care Director East Coast Sales Name Role Phone Carmen Mejia Primary Care Provider [phone] Encounter Details Date Type Department Care Team (Late st Contact Info) Description 07/08/2022 Orders Only [facility] MEDICINE [address] [place] [address] Shannon Sargent LPN Social History Tobacco Use Types Packs/Day Years Used Date Smoking Tobacco: Never Assessed Sex and Gender Information Value Date Recorded Sex Assigned at Male 04/19/2022 10:29 AM EDT Legal Sex Male 10:29 AM EDT Gender Identity Male 04/19/2022 10:29 AM EDT Sexual Orientation Straight 04/19/2022 10 :29 AM EDT COVID-19 Exposure Response Date Recorded In the last 10 days, have yo u been in contact with someone who was confirmed or suspected to have Coronavirus/COVID-19? No / Unsure 06/15/2022 10:52 AM EST documented as of this encounter Plan of Treatment Upcoming Encounters Date Type Department Care Team (Late st Contact Info) Description 08/03/2024 9:15 AM EST Office Visit [address] [address] Carmen Mejia FNP [address] [place] [address] 09/25/2024 11:00 AM EDT Office Visit [address] [address] documented as of this encounter Visit Diagnoses Not on filedocumented in this encounter Care Teams Director East Coast Sales Relationship Specialty Start Date End Date Carmen Mejia FNP 230 [place] [address] PCP - General Family Medicine 03/18/21 documented as of this encounter
--- OUTSIDE RECORDS SUMMARY | 2024-07-23 09:24 | XMS_ITS | Encounter Summary ---
Author Organization [employer] Address 75 [facility] 7t [place] [address] Care Team Providers Care Planetarium Sky Show Technician Name Role Phone [facility] Primary Care Provider [phone] Reason for Visit * Reason Comments Med Refill Encounter Details Date Type Department Care Team (Late st Contact Info) Description 01/02/2024 Refill [facility] CHC MED & PEDS [address] [place] [address] [facility] [address] [place], [place] [phone] Nontraumatic incomplete tear of rotator cuff, unspecified laterality Social History Tobacco Use Types Packs/Day Years [...] Description 08/03/2024 9:15 AM EST Office Visit [address] [address] Carmen Mejia FNP [address] [place] [address] 09/25/2024 11:00 AM EDT Office Visit [address] [address] documented as of this encounter Visit Diagnoses Diagnosis Nontraumatic incomplete tear of rotator cuff, unspecified laterality documented in this encounter Additional Health Concerns Assessment Noted Time PHQ-9 Depression Total Score: 0 11/09/19 24 9:34 AM EDT documented as of this encounter Care Teams Planetarium Sky Show Technician Relationship Specialty Start Date End Date Carmen Mejia FNP [address] [place] [address] PCP - General Family Medicine 03/18/21 documented as of this encounter
--- OUTSIDE RECORDS SUMMARY | 2024-07-23 09:24 | XMS_ITS | Encounter Summary ---
Author Organization [employer] Address 75 [facility] 7t [place] [address] Care Team Providers Care Windows Desktop Support Name Role Phone Carmen Mejia Primary Care Provider [phone] Encounter Details Date Type Department Care Team (Late Contact Info) Description 07/07/2022 Orders Only [facility] CHC MED & PEDS [address] [place] [address] Ritika Mcgovern LPN Social History Tobacco Use [...] Description 08/03/2024 9:15 AM EST Office Visit [facility] MEDICINE [address] [place] [address] Carmen Mejia FNP 230 [place] [address] 09/25/2024 11:00 AM EDT Office Visit [facility] MEDICINE 230 [place] [address] documented as of this encounter Visit Diagnoses Not on filedocumented in this encounter Care Teams Windows Desktop Support Relationship Specialty Start Date End Date Carmen Mejia FNP [address] [place] [address] PCP - General Family Medicine 03/18/21 documented as of this encounter
--- OUTSIDE RECORDS SUMMARY | 2024-07-23 09:25 | XMS_ITS | Encounter Summary ---
Author Organization [employer] Address 75 [facility] 7t [place] [address] Care Team Providers Care Speech Language Pathologist Assistant Name Role Phone [facility] Primary Care Provider [phone] Encounter Details Date Type Department Care Team (Late st Contact Info) Description 06/28/2024 Refill C CHC MED & PEDS [address] [place] [address] [facility] [address] [place], [place] [phone] Nontraumatic incomplete tear of rotator cuff, unspecified laterality Social History Tobacco Use Types Packs/Day Years Used Date Smoking Tobacco: Former Cigarettes Smokeless Tobacco: Never Alcohol Use Standard Drinks/Week Comments Never 0 (1 standard drink = 0.6 oz pur e alcohol) Depression Answer Date Recorded Patient Health Questionnaire-9 Score 0 02/10/2024 Patient Health Questionnaire-9 Score 0 02/10/2024 Last PHQ-9: Questionnaire Data Not on file 0 02/10/2024 Housing Stability Answer Date Recorded What is [...] Date Recorded Patient Health Questionnaire-2 Score 0 02/10/2024 Sex and Gender Information Value Date Recorded Sex Assigned at Male 04/19/2022 10:29 AM EDT Legal Sex Male 10:29 AM EDT Gender Identity Male 04/19/2022 10:29 AM EDT Sexual Orientation Straight 04/19/2022 10 :29 AM EDT documented as of this encounter Miscellaneous Notes * Addendum Note - Halima Rincon RN - 06/28/2024 2:59 PM ESTAddended by: HALIMA RINCON on: 06/28/2024 02:59 PM Modules accepted: Orders * Telephone Encounter - Ritika Mcgovern LPN - 06/28/2024 2:36 PM EST Received fax from [facility] requesting refill on Acetaminophen-codeine #4 documented in this encounter Plan of Treatment Upcoming Encounters Date Type Department Care Team (Late st Contact Info) Description 08/03/2024 9:15 AM EST Office Visit [address] [address] Carmen Mejia FNP [address] [place] [address] 09/25/2024 11:00 AM EDT Office Visit [address] [address] documented as of this encounter Visit Diagnoses Diagnosis Nontraumatic incomplete tear of rotator cuff, unspecified laterality documented in this encounter Additional Health Concerns Assessment Noted Time PHQ-9 Depression Total Score: 0 02/10/20 24 9:01 AM EDT documented as of this encounter Care Teams Speech Language Pathologist Assistant Relationship Specialty Start Date End Date Carmen Mejia FNP [address] [place] [address] PCP - General Family Medicine 03/18/21 documented as of this encounter
--- OUTSIDE RECORDS SUMMARY | 2024-07-23 09:25 | XMS_ITS | Encounter Summary ---
Author Organization [employer] Address [address] [place] [address] 7t [place] [address] Care Team Providers Care Instructional Resource Teacher Name Role Phone Carmen Mejia [facility] Primary Care Provider [phone] Encounter Details Date Type Department Care Team (Late st Contact Info) Description 03/07/2023 Orders Only [facility] CHC MED & PEDS [address] [place] [address] Shannon Sargent LPN Social History Tobacco Use Types Packs/Day Years Used Date Smoking Tobacco: Former Cigarettes Smokeless Tobacco: Never Alcohol Use Standard Drinks/Week Comments Never 0 (1 standard drink = 0.6 oz pur e alcohol) Depression Answer Date Recorded Patient Health Questionnaire-9 Score 0 01/13/2023 Depression Answer Date Recorded Patient Health Questionnaire-2 Score 0 01/13/2023 Sex and Gender Information Value Date Recorded Sex Assigned at Male 04/19/2022 10:29 AM EDT Legal Sex Male 10:29 AM EDT Gender Identity Male 04/19/2022 10:29 AM EDT Sexual Orientation Straight 04/19/2022 10 :29 AM EDT documented as of this encounter Plan of Treatment Upcoming Encounters Date Type Department Care Team (Late st Contact Info) Description 08/03/2024 9:15 AM EST Office Visit [facility] MEDICINE [address] [place] [address] [facility] [address] [place] [address] 09/25/2024 11:00 AM EDT Office Visit [facility] [address] [place] [address] documented as of this encounter Visit Diagnoses Not on filedocumented in this encounter Additional Health Concerns Assessment Noted Time PHQ-9 Depression Total Score: 0 01/14/20 23 9:12 AM EDT documented as of this encounter Care Teams Instructional Resource Teacher Relationship Specialty Start Date End Date Carmen Mejia FNP [address] [place] [address] PCP - General Family Medicine 03/18/21 documented as of this encounter
--- OUTSIDE RECORDS SUMMARY | 2024-07-23 09:25 | XMS_ITS | Encounter Summary ---
Author Organization [employer] Address 75 [facility] 7t [place] [address] Care Team Providers Care School Office Manager Name Role Phone [place] [facility] Primary Care Provider [phone] Reason for Visit * Reason Comments Med Refill Encounter Details Date Type Department Care Team ([facility] st Contact Info) Description 10/12/2023 Refill [facility] MEDICINE 230 [place], [place] [phone] Roberto, [facility] 230 [place] [address] Primary insomnia Social History Tobacco Use Types Packs/Day Years Used Date Smoking Tobacco: Former Cigarettes Smokeless Tobacco: Never Alcohol Use Standard Drinks/Week Comments Never 0 (1 standard drink = 0.6 oz pur e alcohol) Depression Answer Date Recorded Patient Health Questionnaire-9 Score 24 04/18/2023 Patient Health Questionnaire-9 Score 24 04/18/2023 Last PHQ-9: Questionnaire Data Not on file 1 Housing Stability Answer Date Recorded What is [...] Answer Date Recorded Patient Health Questionnaire-2 Score 6 04/18/2023 Sex and Gender Information Value Date Recorded Sex Assigned at Male 04/19/2022 10:29 AM EDT Legal Sex Male 10:29 AM EDT Gender Identity Male 04/19/2022 10:29 AM EDT Sexual Orientation Straight 04/19/2022 10 :29 AM EDT documented as of this encounter Plan of Treatment Upcoming Encounters Date Type Department Care Team (Late st Contact Info) Description 08/03/2024 9:15 AM EST Office Visit [facility] MEDICINE [address] [place] [address] Carmen Mejia FNP [address] [place] [address] 09/25/2024 11:00 AM EDT Office Visit [address] [address] documented as of this encounter Visit Diagnoses Diagnosis Primary insomnia Persistent disorder of initiating or maintaining sleep documented in this encounter Additional Health Concerns Assessment Noted Time PHQ-9 Depression Total Score: 24 023 9:04 AM EDT documented as of this encounter Care Teams School Office Manager Relationship Specialty Start Date End Date Carmen eMjia FNP [address] [place] [address] PCP - General Family Medicine 03/18/21 documented as of this encounter
--- OUTSIDE RECORDS SUMMARY | 2024-07-23 09:25 | XMS_ITS | Encounter Summary ---
Author Organization [facility] Address [address] [place] [address] 7t [place] [address] Care Team Providers Care Electronic Equipment Trades Worker Name Role Phone [place] [facility] Primary Care Provider [phone] Reason for Visit * Reason Comments Med Refill Encounter Details Date Type Department Care Team (Late Contact Info) Description 11/18/2022 Refill [facility] MEDICINE [address] [place], [place] [phone] [facility] [address] [place], [place] [phone] Primary insomnia; Type 2 diabetes mellitus with other specified complication, without long-term current use of insulin ([facility]) Social History Tobacco Use Types Packs/Day Years Used Date Smoking Tobacco: Former Cigarettes Smokeless Tobacco: Never Alcohol Use Standard Drinks/Week Comments Never 0 (1 standard drink = 0.6 oz pur e alcohol) Sex and Gender Information Value Date Recorded [...] suspected to have Coronavirus/COVID-19? No / Unsure 11/01/2022 10:41 AM EDT documented as of this encounter Plan of Treatment Upcoming Encounters Date Type Department Care Team (Late Contact Info) Description 08/03/2024 9:15 AM EST Office Visit [facility] MEDICINE [address] [place], [place] [phone] [facility] [address] [place] [address] 09/25/2024 11:00 AM EDT Office Visit [facility] MEDICINE [address] [place] [address] documented as of this encounter Visit Diagnoses Diagnosis Primary insomnia Persistent disorder of initiating or maintaining sleep Type 2 diabetes mellitus with other specified complication, without long-term current use of insulin ([facility]) documented in this encounter Additional Health Concerns Assessment Noted Time PHQ-9 Depression Total Score: 0 10/15/19 23 8:58 AM EDT documented as of this encounter Care Teams Electronic Equipment Trades Worker Relationship Specialty Start Date End Date Carmen Mejia FNP [address] [place] [address] PCP - General Family Medicine 03/18/21 documented as of this encounter
--- OUTSIDE RECORDS SUMMARY | 2024-07-23 09:25 | XMS_ITS | Encounter Summary ---
Author Organization [employer] Address 75 [facility] 7t [place] [address] Care Team Providers Care Crusher Setter Name Role Phone Roberto [facility] Primary Care Provider Encounter Details Date Type Department Care Team (Late st Contact Info) Description 05/05/2023 Abstract [facility] MEDICINE 230 [place], [place] [phone] Dia Gibson Social History Tobacco Use Types Packs/Day Years [...] Description 08/03/2024 9:15 AM EST Office Visit [address] [address] Carmen Mejia [address] [address] 09/25/2024 11:00 AM EDT Office Visit [address] [address] documented as of this encounter Visit Diagnoses Not on filedocumented in this encounter Additional Health Concerns Assessment Noted Time PHQ-9 Depression Total Score: 24 023 9:04 AM EDT documented as of this encounter Care Teams Crusher Setter Relationship Specialty Start Date End Date Carmen Mejia FNP [address] [place] [address] PCP - General Family Medicine 03/18/21 documented as of this encounter
--- OUTSIDE RECORDS SUMMARY | 2024-07-23 09:25 | XMS_ITS | Encounter Summary ---
Author Organization [employer] Address 75 [facility] 7t [place] [address] Care Team Providers Care Gang Worker Name Role Phone [facility] Primary Care Provider [phone] Reason for Visit * Reason Comments Med Refill Encounter Details Date Type Department Care Team (Late st Contact Info) Description 01/03/2024 Refill [facility] CHC MED & PEDS [address] [place] [address] [facility] [address] [place] [address] Nontraumatic incomplete tear of rotator cuff, unspecified [...] Description 08/03/2024 9:15 AM EST Office Visit [address] [address] Carmen Mejia FNP [address] [place] [address] 09/25/2024 11:00 AM EDT Office Visit [address] [address] documented as of this encounter Visit Diagnoses Diagnosis Nontraumatic incomplete tear of rotator cuff, unspecified laterality documented in this encounter Additional Health Concerns Assessment Noted Time PHQ-9 Depression Total Score: 0 11/09/19 24 9:34 AM EDT documented as of this encounter Care Teams Gang Worker Relationship Specialty Start Date End Date Carmen Mejia FNP [address] [place] [address] PCP - General Family Medicine 03/18/21 documented as of this encounter
--- OUTSIDE RECORDS SUMMARY | 2024-07-23 09:25 | XMS_ITS | Encounter Summary ---
Author Organization [employer] Address 75 [facility] 7t [place] [address] Care Team Providers Care Recoating Machine Operator Name Role Phone Carmen Mejia [facility] Primary Care Provider [phone] Reason for Visit * Reason Onset Date Comments denture appt PA 11/02/2022 Encounter Details Date Type Department Care Team ([facility] st Contact Info) Description 11/02/2022 Telephone [facility] ADULT DENTAL [address] [place], [place] [phone] Bal Aponte, DMD [address] [place], [place] [phone] denture appt PA Social History Tobacco Use Types Packs/Day Years [...] as of this encounter Miscellaneous Notes * Telephone Encounter - Manisha Luciano - 11/02/2022 11:09 AM EDT Rep from [facility] called in checking in on the status of patient appt for upper and lower dentures. It looks like we are waiting for PA for either approval or denial. I didn't see anything in documents stating that patient was approved or denied. Any info or does PA need to still be submitted DR documented in this encounter Plan of Treatment Upcoming Encounters Date Type Department Care Team (Late st Contact Info) Description 08/03/2024 9:15 AM EST Office Visit [address] [address] Carmen Mejia FNP [address] [place] [address] 09/25/2024 11:00 AM EDT Office Visit [address] [address] documented as of this encounter Visit Diagnoses Not on filedocumented in this encounter Additional Health Concerns Assessment Noted Time PHQ-9 Depression Total Score: 0 10/15/19 23 8:58 AM EDT documented as of this encounter Care Teams Recoating Machine Operator Relationship Specialty Start Date End Date Carmen Mejia FNP [address] [place] [address] PCP - General Family Medicine 03/18/21 documented as of this encounter
--- OUTSIDE RECORDS SUMMARY | 2024-07-23 09:25 | XMS_ITS | Encounter Summary ---
Author Organization [facility] Address [address] [facility] [address] [place] [address] Care Team Providers Care Lump Machine Operator Name Role Phone Carmen Mejia [facility] Primary Care Provider [phone] Encounter Details Date Type Department Care Team (Latest Contact Info) Description 07/17/2024 Travel Social History Tobacco Use Types Packs/Day Years [...] Description 08/03/2024 9:15 AM EST Office Visit [address] [address] Carmen Mejia FNP [address] [place] [phone] 09/25/2024 11:00 AM EDT Office Visit [address] [address] documented as of this encounter Visit Diagnoses Not on filedocumented in this encounter Additional Health Concerns Assessment Noted Time PHQ-9 Depression Total Score: 0 02/10/20 24 9:01 AM EDT documented as of this encounter Care Teams Lump Machine Operator Relationship Specialty Start Date End Date Carmen Mejia FNP [address] [place] [phone] PCP - General Family Medicine 03/18/21 documented as of this encounter
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
--- OUTSIDE RECORDS SUMMARY | 2024-07-23 09:25 | XMS_ITS | Encounter Summary ---
Author Organization [employer] Address [address] [facility] 7t [place] [address] Care Team Providers Care Bridge Maintenance Worker Name Role Phone Roberto [facility] Primary Care Provider [phone] Encounter Details Date Type Department Care Team (Late st Contact Info) Description 10/15/2022 Orders Only [facility] MED [facility] PEDS [address] [place], [place] [phone] Ritika Mcgovern LPN Social History Tobacco Use [...] suspected to have Coronavirus/COVID-19? No / Unsure 10/14/2022 8:43 AM EDT documented as of this encounter Plan of Treatment Upcoming Encounters Date Type Department Care Team (Late st Contact Info) Description 08/03/2024 9:15 AM EST Office Visit [facility] [address] [place] [address] [facility] [address] [place] [address] 09/25/2024 11:00 AM EDT Office Visit [facility] [address] [place] [address] documented as of this encounter Visit Diagnoses Not on filedocumented in this encounter Additional Health Concerns Assessment Noted Time PHQ-9 Depression Total Score: 0 10/15/19 23 8:58 AM EDT documented as of this encounter Care Teams Bridge Maintenance Worker Relationship Specialty Start Date End Date Carmen Mejia FNP [address] [place] [phone] PCP - General Family Medicine 03/18/21 documented as of this encounter
--- OUTSIDE RECORDS SUMMARY | 2024-07-23 09:25 | XMS_ITS | Encounter Summary ---
Author Organization [employer] Address [address] [facility] [address] [place] [address] Care Team Providers Care Early Interventionist Name Role Phone Roberto [facility] Primary Care Provider [phone] Reason for Visit * Reason Onset Date Comments Med Refill 06/29/2024 Encounter Details Date Type Department Care Team ([facility] st Contact Info) Description 06/29/2024 Telephone [facility] MEDICINE [address] [place], [place] [phone] [facility] [address] [place] [address] Med Refill Social History Tobacco Use Types Packs/Day Years [...] encounter Miscellaneous Notes * Telephone Encounter - Michelle Rincon RN - 06/29/2024 11:14 AM EST Request was sent to PCP yesterday, awaiting her decision. * Telephone Encounter - Gwen Velasquez - 06/29/2024 10:43 AM EST Pt walked in requesting refill on ambien 5mg tab and tylenol #4. Pt states he has called twice thisweek and it is yet to be signed by pcp. Pt needs them to sleep and would like them sent jonathan so he can pickup before end of the day today. documented in this encounter Plan of Treatment Upcoming Encounters Date Type Department Care Team (Late st Contact Info) Description 08/03/2024 9:15 AM EST Office Visit [facility] MEDICINE [address] [place] [phone] [facility] [address] [place] [address] 09/25/2024 11:00 AM EDT Office Visit [facility] MEDICINE [address] [place] [address] documented as of this encounter Visit Diagnoses Not on filedocumented in this encounter Additional Health Concerns Assessment Noted Time PHQ-9 Depression Total Score: 0 02/10/20 9:01 AM EDT documented as of this encounter Care Teams Early Interventionist Relationship Specialty Start Date End Date RobertoCarmenSTEVEN [address] [place] [phone] PCP - General Family Medicine 03/18/21 documented as of this encounter
--- OUTSIDE RECORDS SUMMARY | 2024-07-23 09:25 | XMS_ITS | Encounter Summary ---
Author Organization [employer] [facility] Address [address] [place] [address] [address] [place] [address] Care Team Providers Care Door Operator Name Role Phone Roberto [facility] Primary Care Provider [phone] Reason for Visit * Reason Comments Med Refill Encounter Details Date Type Department Care Team (Late Contact Info) Description 11/16/2022 Refill [facility] MEDICINE [address] [place] [phone] Melani Haider [facility] [address] [place], [place] [phone] Other chronic pain Social History Tobacco Use Types Packs/Day Years [...] Description 08/03/2024 9:15 AM EST Office Visit [facility] MED[facility]INE [address] [place], [place] [phone] [facility] [address] [place] [address] 09/25/2024 11:00 AM EDT Office Visit [facility] MED[facility] [address] [place] [address] documented as of this encounter Visit Diagnoses Diagnosis Other chronic pain documented in this encounter Additional Health Concerns Assessment Noted Time PHQ-9 Depression Total Score: 0 10/15/19 23 8:58 AM EDT documented as of this encounter Care Teams Door Operator Relationship Specialty Start Date End Date Carmen Mejia FNP [address] [place] [address] PCP - General Family Medicine 03/18/21 documented as of this encounter
--- OUTSIDE RECORDS SUMMARY | 2024-07-23 09:25 | XMS_ITS | Encounter Summary ---
Author Organization [employer] Address [address] [facility] 7t [place] [address] Care Team Providers Care Feed Management Advisor Name Role Phone [facility] Primary Care Provider [phone] Reason for Visit * Reason Onset Date Comments Med Refill 06/28/2024 Encounter Details Date Type Department Care Team (Late st Contact Info) Description 06/28/2024 Refill [facility] MED & PEDS [address] [place] [address] [facility] [address] [place] [address] Primary insomnia Social History Tobacco Use Types [...] Description 08/03/2024 9:15 AM EST Office Visit [address] [address] Carmen Mejia FNP [address] [place] [phone] 09/25/2024 11:00 AM EDT Office Visit [address] [address] documented as of this encounter Visit Diagnoses Diagnosis Primary insomnia Persistent disorder of initiating or maintaining sleep documented in this encounter Additional Health Concerns Assessment Noted Time PHQ-9 Depression Total Score: 0 02/10/20 24 9:01 AM EDT documented as of this encounter Care Teams Feed Management Advisor Relationship Specialty Start Date End Date Carmen Mejia FNP [address] [place] [phone] PCP - General Family Medicine 03/18/21 documented as of this encounter
--- OUTSIDE RECORDS SUMMARY | 2024-07-23 09:25 | XMS_ITS | Encounter Summary ---
Author Organization [employer] Address [address] [facility] 7t [place] [address] Care Team Providers Care Experimental Technician Name Role Phone Carmen Mejia [facility] Primary Care Provider [phone] Encounter Details Date Type Department Care Team (Late st Contact Info) Description 07/17/2024 11:00 AM EST Office Visit [facility] [address] [place] [address] Melani Haider FNP [address] [place] [address] Other chronic pain (Primary Dx) Social History Tobacco Use Types Packs/Day Years [...] Description 08/03/2024 9:15 AM EST Office Visit [address] [phone] RobertoCarmen martinez FNP [address] [place] [address] [phone] 09/25/2024 11:00 AM EDT Office Visit [address] [address] documented as of this encounter Procedures Procedure Name Priority Date/Time Associated Diagnosis Comments POCT KINA-14 URINE DRUG SCREEN Routine 07/17/2024 2:07 PM EST Other chronic pain documented in this encounter Results * POCT KINA-14 Urine Drug Screen (07/17/2024 2:07 PM EST) Opiate Screen, Urine Positive Urine Urine specimen obtained by clean catch procedure / Unknown 07/17/2024 2:07 PM EST Michelle Peters RN - 07/17/2024 2:07 PM EST UTOX cup Lot#[id number] Exp. 03/14/26 Internal Pass Control Melani Haider [facility] POINT OF CARE TEST ENTER/EDIT ORDERABLES Final Result documented in this encounter Visit Diagnoses Diagnosis Other chronic pain- Primary documented in this encounter Additional Health Concerns Assessment Noted Time PHQ-9 Depression Total Score: 0 02/10/20 9:01 AM EDT documented as of this encounter Care Teams Experimental Technician Relationship Specialty Start Date End Date Arvin STEVEN Morales [address] [place] [address] PCP - General Family Medicine 03/18/21 documented as of this encounter
== END 2024-07-23 09:03 | disposition home or self-care (01) ==
LOC: HO.BBR 09:02
PROVIDERS: PCP Registered Nurse; Visit Provider Urology
DX: R71.8 Other abnormality of red blood cells (principal)
CPT/HCPCS: 85014; 85018; 99195

== ENCOUNTER 2024-08-14 10:24 | Outpatient (AMB) | payer OTHER, SELFPAY ==
--- NOTE | 2024-08-14 10:24 | MHC.OFFVIS ---
Intake Visit Reasons: Med Increase Request Intake Note: Patient is present for MED INCREASE REQUEST Urology Medication:SILDENAFIL,TADALAFIL,TESOSTERONE,VITAMIN B12 Antibiotic Allergy:NONE Blood Thinner:ASPIRIN Ticket Writer Required: No Allergies avocado [AVOCADO] Allergy (Severe, Verified 08/14/24 10:25) HIVES/SOB lisinopril Allergy (Severe, Verified 08/14/24 10:25) Unknown passion fruit [PASSION FRUIT] Allergy (Severe, Verified 08/14/24 10:25) HIVES/SOB sacubitril [Entresto] Allergy (Severe, Verified 08/14/24 10:25) Unknown valsartan [Entresto] Allergy (Severe, Verified 08/14/24 10:25) Unknown soy [SOY] Allergy (Unknown, Verified 08/14/24 10:25) SWELLING acetaminophen [From Percocet] Adverse Reaction (Verified 08/14/24 10:25) Gastrointestinal Upset oxycodone [From Percocet] Adverse Reaction (Verified 08/14/24 10:25) Gastrointestinal Upset HPI Comments Details: Mr Lehman is a very pleasant male. He is a patient of Dr Mejia. He is seen for the following urologic conditions. - hypogonadism - erectile dysfunction Telemedicine Evaluation 15 min Consultation [employer] Donte Video Six-month follow-up Lab work remains in range Would like to add on demand tadalafil. Refill 10 mg daily script. Add 20 mg on demand Prescription refilled Continue testosterone Prescription refilled Injection day Tuesday, lab work Tuesday, Erectile dysfunction related to diabetes Had been on demand Current medications include daily 10 mg tadalafil Hypogonadism:? He presents today for?further evaluation and followup of his hypogonadism - doing better with more energy since starting injections.? Initial symptoms include? erectile dysfunction ?Yes ? decreased libido ?Yes ? change in mood/depression ?Yes ? in muscle size/strength ?Yes ? increased fatigue/malaise ?Yes ? The onset of symptoms has been?gradual.? Associate conditions include? obstructive sleep apnea ?No ? CAD ?No ? diabetes ?Yes ? dyslipidemia ?Yes ? hypertension ?Yes ? He has been taking?antidepressants.? Laboratory results?baseline, testosterone Mar 2016 163 ?, followup Day of T injection 06/04 369 ?02/03 , PSA 0.2, , testosterone 404 - at 0.25 SQ 2x a week - will increase to 0.3 ?08/07 restart T at 0.25 ?12/05 T 275, 08/08 T 625, PSA 0.3, 02/05 T 377 PSA 0.28, 08/09 T 266, 02/07 T 484, PSA 0.3, 08/11 T 759 P 0.4 H 57.3, 02/08 T 231 h 53, 08/12 800 0.6 53, 09/10 330 Hct 52.5, 05/13 550 Hct 51 ? Current therapy includes?injectable exogenous testosterone.? Response to therapy has been?improved, energy/wellbeing.? Diagnosis based on history and laboratory results?combined testicular insufficiency.? Therapeutic plan?continue current medication.? [facility] Medical History HFrEF (heart failure with reduced ejection fraction) ICD (implantable cardioverter-defibrillator) in place Nonischemic cardiomyopathy HTN (hypertension) Diabetes mellitus CAD (coronary artery disease) Surgical History History of carpal tunnel surgery H/O colonoscopy History of cardiac cath (~2016) Family History Father No problems noted. Mother No problems noted. Social History Household Members: Spouse Alcohol intake: former Patient Tobacco Use Status: Former Tobacco user Second Hand Smoke Exposure: No Review of Systems Const All systems reviewed & are unremarkable except as noted in HPI and below Reports no additional complaints Resp Reports no additional complaints GI Reports no additional complaints Reports as per HPI Musc Reports no additional complaints Physical Exam Telemedicine evaluation Appropriate responses Regular breathing rate and rhythm HEENT Head: Yes normal to inspection Ears: hearing grossly normal bilaterally Eyes General: appearance normal, both eyes and all related structures Neck Neck: Yes normal visual inspection Chest Chest palpation & inspection: normal inspection of the chest Resp Effort & Inspection: normal respiratory effort and able to speak in complete sentences Telehealth Telehealth Telehealth Platform: [employer] Location of provider rendering services: practice address Location of patient: address on file Patient Identification confirmed using: Name, : Yes Telehealth method: video Patient verbally consented to treatment: Yes Patient verbally consented to billing insurance company: Yes Patient informed of any privacy concerns related to visit: Yes Minutes spent on Phone/Video with Pt.: 15 Assessment & Plan Assessment & Plan (1) Erectile dysfunction associated with type 2 diabetes mellitus: Code(s): E11.69 - Type 2 diabetes mellitus with other specified complication; N52.1 - Erectile dysfunction due to diseases classified elsewhere Category: Medical (2) Hypogonadism in male: Code(s): E29.1 - Testicular hypofunction Category: Medical Plan Six-month follow-up lab work office Orders: Orders Prostate Specific Antigen 6 Months E29.1 - Testicular hypofunction Testosterone, Total 6 Months E29.1 - Testicular hypofunction Complete Blood Count no Diff 6 Months E29.1 - Testicular hypofunction Medications: New tadalafil On demand medication take 60 minutes before intended activity 20 mg PO ONCE 30 days PRN 30 tabs 0RF sexual activity E11.69 - Type 2 diabetes mellitus with other specified complication, N52.1 - Erectile dysfunction due to diseases classified elsewhere Patient Instructions: This note is constructed using voice recognition software. While every effort has been made to ensure accuracy compounder flavorings errors may have been included. Imaging studies, laboratory and physical exam results were discussed and reviewed in detail. No major barriers to patient understanding were identified. An opportunity to ask questions regarding the treatment plan was provided. All questions were answered. The patient expressed understanding and agreement with the above treatment plan. The patient is aware they should contact our office by phone for worsening of their current condition or the appearance of new urologic symptoms. Compliance is encouraged with any medications and followup testing that is ordered. It is a privilege to participate in the urologic care of your patient. If you have any questions or concerns regarding treatment for the above conditions, or other urologic issues, please do not hesitate to contact me. The office telephone contact is [phone]. Sincerely, Dr Ac Marina MD, NIC[facility] - Urology Compassionate Specialist Care for the Genitourinary System Coding Level of Care Code Tele Est Pt Level 3 (77165) Complex EM visit Add On G2211 Diagnoses Erectile dysfunction associated with type 2 diabetes mellitus E11.69; N52.1 Hypogonadism in male E29.1
--- OUTSIDE RECORDS SUMMARY | 2024-08-14 12:17 | XMS_ITS | Encounter Summary ---
Author Organization [employer] Address [address] [facility] 7t [place] [address] Care Team Providers Care Concrete Batching Plant Operator Name Role Phone Carmen Mejia [facility] Primary Care Provider [phone] Encounter Details Date Type Department Care Team (Late st Contact Info) Description 03/07/2023 Orders Only [facility] [address] [place], [place] [phone] Shannon Sargent LPN Social History Tobacco Use [...] Care Team (Late st Contact Info) Description 09/25/2024 11:00 AM EDT Office Visit [facility] [address] [place] [address] 10/31/2024 10:15 AM EDT Office Visit [facility] [address] [place] [address] Carmen Mejia [facility] [address] [place] [address] documented as of this encounter Visit Diagnoses Not on filedocumented in this encounter Additional Health Concerns Assessment Noted Time PHQ-9 Depression Total Score: 0 01/14/20 23 9:12 AM EDT documented as of this encounter Care Teams Concrete Batching Plant Operator Relationship Specialty Start Date End Date Carmen Mejia FNP [address] [place] [phone] PCP - General Family Medicine 03/18/21 documented as of this encounter
--- OUTSIDE RECORDS SUMMARY | 2024-08-14 12:17 | XMS_ITS | Encounter Summary ---
Author Organization [employer] Address [address] [facility] 7t [place] [address] Care Team Providers Care Advanced Solutions Architect Name Role Phone Carmen Mejia SOFTWARE QA MANAGER Primary Care Provider [phone] Encounter Details Date Type Department Care Team (Late st Contact Info) Description 07/17/2024 11:00 AM EST Office Visit [facility] [address] [place] [address] Melani Haider FNP [address] [place], [place] [phone] Traumatic incomplete tear of left rotator cuff, subsequent encounter (Primary Dx); Long-term current use of opiate analgesic Social History Tobacco Use Types Packs/Day Years [...] AM EDT documented as of this encounter Progress Notes * Melani Meliza, SOFTWARE QA MANAGER - 07/17/2024 11:00 AM EST Subjective: Andry Lehman is a 59 y.o. male w/ PMH T2DM, CTS, [place], hypertension, HFrEF, CAD, defibrillator, and partial thickness of left rotator cuff tear, who presents to the office for - Chronic Pain Clinic Group visits. Initial Group visit: 12/27/23 Group Visit Number: 5 Last PCP visit: 02/10/24 ([facility]) Group Confidentiality last signed: 12/27/23 Group Topic: Functional goal setting Chronic Pain History: Associated Diagnosis: partial thickness rotator cuff tear Relevant Imaging: N/A Current pharm tx: Acetaminophen-codeine (T4) 300/60mg Q8hr PRN. Medication: States taking medication as prescribed. Related Specialists: Previously following with Ortho. Consideration of surgeries in the past although surgeon's were hesitant to proceed given significant cardiac history and comorbidities Protective factors/de stressors: riding horses weekly at [place]. Being outside in nature. Review of Systems Constitutional: Negative for chills and fever. Respiratory: Negative for wheezing. Cardiovascular: Negative for chest pain and palpitations. Gastrointestinal: Negative for diarrhea and vomiting. Musculoskeletal: Positive for arthralgias. Physical Exam Constitutional: Appearance: Normal appearance. Pulmonary: Effort: Pulmonary effort is normal. Neurological: Mental Status: He is alert and oriented to person, place, and time. Psychiatric: Mood and Affect: Mood normal. Behavior: Behavior normal. Problem List Items Addressed This Visit Musculoskeletal Partial thickness rotator cuff tear - Primary Overview Chronic L shoulder pain and reduced mobility r/t incomplete tear of rotator cuff. Previously evaluated by several orthopedic surgeons who have all declined proceeding with surgery d/t patient comorbidities. Currently managing pain with Tylenol #4. Compliant with TOUR NARRATOR agreement Followed by [facility] pain mnmt. Current Assessment & Plan -Good engagement and participation with Group Medical Visit model -Encouraged multifactorial approach to pain control including pharm and non- pharm modalities -UTOX and Pill count as expected Relevant Orders POCT KINA-14 Urine Drug Screen (Completed) Other Long-term current use of opiate analgesic Overview Medication: Tylenol w/ Codeine #4 (300-60mg) Q8H PRN Indication: Rotator cuff tear (not ideal surgical candidate) Tier III (Q6 month visits) Last TOUR NARRATOR Agreement: 11/17/23 Current Assessment & Plan Timeline: - 11/17/23: TOUR NARRATOR Agreement, Utox/pill count as expected - 12/13/23: NCNS to Group visit - 12/27/23: Initial Group Visit, Utox/pill count as expected - 01/31/24: Group visit, Utox/pill count as expected - 03/13/24: Group visit, Utox/pill count as expected - 05/15/24: Group visit, Utox/pill count as expected - 07/17/24: Group visit, Utox/pill count as expected Relevant Orders POCT KINA-14 Urine Drug Screen (Completed) Follow up: within 6 months for Group Chronic Pain Clinic. Follow up as scheduled with PCP, sooner as needed. * Michelle Rincon RN - 07/17/2024 11:00 AM EST TOUR NARRATOR grocery store manager: PDMP reviewed today. Last fill date: 07/02/24 Acetaminophen with codeine (T4) count was 44, anticipated 37 to be remaining. UTOX completed. Positive for MOP, Negative for AMP, BAR, BUP, BZO, MANUEL, FTY, MDMA, MET, MTD, OXY, PCP, TCA, THC. UTOX as expected. documented in this encounter Miscellaneous Notes * Assessment & Plan Note - STEVEN Brunner - 07/24/2024 3:07 PM ESTAssociated Problem(s): Long-term current use of opiate analgesic Timeline: - 11/17/23: TOUR NARRATOR Agreement, Utox/pill count as expected - 12/13/23: NCNS to Group visit - 12/27/23: Initial Group Visit, Utox/pill count as expected - 01/31/24: Group visit, Utox/pill count as expected - 03/13/24: Group visit, Utox/pill count as expected - 05/15/24: Group visit, Utox/pill count as expected - 07/17/24: Group visit, Utox/pill count as expected * Assessment & Plan Note - STEVEN Brunner - 07/24/2024 3:07 PM ESTAssociated Problem(s): Partial thickness rotator cuff tear -Good engagement and participation with Group Medical Visit model -Encouraged multifactorial approach to pain control including pharm and non- pharm modalities -UTOX and Pill count as expected documented in this encounter Plan of Treatment Upcoming Encounters Date Type Department Care Team (Late st Contact Info) Description 09/25/2024 11:00 AM EDT Office Visit [address] [address] 10/31/2024 10:15 AM EDT Office Visit [address] [address] [place] Junction[place]arm[place] FNP [address] [place] [address] documented as of this encounter Procedures Procedure Name Priority Date/Time Associated Diagnosis Comments POCT KINA-14 URINE DRUG SCREEN Routine 07/17/2024 2:07 PM EST Long-term current use of opiate analgesic Traumatic incomplete tear of left rotator cuff, subsequent encounter documented in this encounter Results * POCT KINA-14 Urine Drug Screen (07/17/2024 2:07 PM EST) Opiate Screen, Urine Positive Urine Urine specimen obtained by clean catch procedure / Unknown 07/17/2024 2:07 PM EST Michelle Peters RN - 07/17/2024 2:07 PM EST UTOX cup Lot#[id number] Exp. 03/14/26 Internal Pass Control Melani Haider [facility] POINT OF CARE TEST ENTER/EDIT ORDERABLES Final Result documented in this encounter Visit Diagnoses Diagnosis Traumatic incomplete tear of left rotator cuff, subsequent encounter- Primary Long-term current use of opiate analgesic Encounter for long-term (current) use of other medications documented in this encounter Additional Health Concerns Assessment Noted Time PHQ-9 Depression Total Score: 0 02/10/20 24 9:01 AM EDT documented as of this encounter Care Teams Advanced Solutions Architect Relationship Specialty Start Date End Date Carmen Mejia FNP [address] [place] [phone] PCP - General Family Medicine 03/18/21 documented as of this encounter
--- OUTSIDE RECORDS SUMMARY | 2024-08-14 12:17 | XMS_ITS | Encounter Summary ---
Author Organization [employer] Address [address] [facility] [address] [place] [address] Care Team Providers Care Multimedia Journalist Name Role Phone Carmen Mejia WELDING PANTOGRAPH OPERATOR Primary Care Provider [phone] Reason for Visit * Reason Onset Date Comments denture appt PA 11/02/2022 Encounter Details Date Type Department Care Team ([facility] st Contact Info) Description 11/02/2022 Telephone [facility] [address] [place] [address] Bal Aponte, DMD [address] [place] [address] denture appt PA Social History Tobacco Use [...] - 11/02/2022 11:09 AM EDT Rep from [facility] called in checking in on the status [...] Description 09/25/2024 11:00 AM EDT Office Visit [address] [address] 10/31/2024 10:15 AM EDT Office Visit [address] [address] Carmen Mejia FNP [address] [place] [address] documented as of this encounter Visit Diagnoses Not on filedocumented in this encounter Additional Health Concerns Assessment Noted Time PHQ-9 Depression Total Score: 0 10/15/19 23 8:58 AM EDT documented as of this encounter Care Teams Multimedia Journalist Relationship Specialty Start Date End Date Carmen Mejia FNP [address] [place] [phone] PCP - General Family Medicine 03/18/21 documented as of this encounter
--- OUTSIDE RECORDS SUMMARY | 2024-08-14 12:17 | XMS_ITS | Encounter Summary ---
Author Organization [employer] Address [address] [place] [address] 7t [place] [address] Care Team Providers Care Supervisor Pipelines Name Role Phone Roberto Carmen HEALTH PRACTICE MANAGER Primary Care Provider [phone] Reason for Visit * Reason Comments Med Refill Encounter Details Date Type Department Care Team (Late st Contact Info) Description 11/16/2022 Refill [facility] [address] [place], [place] [phone] Melani Haider FNP [address] [place], [place] [phone] Other chronic pain Social History Tobacco Use [...] Description 09/25/2024 11:00 AM EDT Office Visit [facility] [address] [place] [address] [phone] 10/31/2024 10:15 AM EDT Office Visit [facility] [address] [place] [address] [phone] Carmen Mejia FNP [address] [place] [address] documented as of this encounter Visit Diagnoses Diagnosis Other chronic pain documented in this encounter Additional Health Concerns Assessment Noted Time PHQ-9 Depression Total Score: 0 10/15/19 23 8:58 AM EDT documented as of this encounter Care Teams Supervisor Pipelines Relationship Specialty Start Date End Date Carmen Mejia FNP [address] [place] [address] [place] [address] PCP - General Family Medicine 03/18/21 documented as of this encounter
--- OUTSIDE RECORDS SUMMARY | 2024-08-14 12:17 | XMS_ITS | Clinical Summary ---
Author Organization [employer] Address [address] [facility] 7t [place] [address] Care Team Providers Care Conductor And Engineer Name Role Phone Carmen Mejia [facility] Primary Care Provider [phone] Allergies Active Allergy Reactions Criticality Noted Date Comments Jamie Inhibitors High 11/25/2021 Other reaction(s): Unknown Avocado High 11/18/2022 Other reaction(s): HIVES/SOB Passion Fruit Flavoring Agent (Non-Screening) High 11/18/2022 Other reaction(s): HIVES/SOB Penicillin G 11/25/2021 Other reaction(s): Unknown Sacubitril High 11/18/2022 Other reaction(s): Unknown Soy Allergy (Obsolete) 11/18/2022 Other reaction(s): SWELLING Valsartan High 11/18/2022 Other reaction(s): Unknown Medications GaviLAX 17 GM/SCOOP powderIndication s:Drug-induced constipation TAKE 17 GM MIXED IN 8 OUNCES OF WATER ONCE DAILY NEEDED FOR CONSTIPATION 510 g 3 023 Active testosterone cypionate (Depo-Testostero ne) 200 MG/ML injection INJECT 0.5ML 100MG) SUBCUTANEOUSLY ONCE A WEEK 023 Active hydrALAZINE (Apresoline) 50 MG tablet TAKE 1 TABLET BY MOUTH TWICE DAILY IN THE MORNING AND AT BEDTIME 023 Active gabapentin (Neurontin) 300 MG capsule Take by mouth at bedtime. 023 Active furosemide (Lasix) 40 MG tablet TAKE 1 TABLET BY MOUTH EVERY MORNING (CALL [phone] FOR APPOINTMENT (Dr. Pillai)) 023 Active carvedilol (Coreg) 25 MG tablet TAKE 1 TABLET BY MOUTH TWICE DAILY IN THE MORNING AND IN THE EVENING WITH FOOD 023 Active atorvastatin (Lipitor) 40 MG tablet Take 40 mg by mouth at bedtime. 023 Active Aspirin Low Dose 81 MG EC tablet TAKE 1 TABLET BY MOUTH EVERY MORNING (CALL [phone] FOR APPOINTMENT (Dr. Pillai )) 023 Active albuterol (2.5 MG/3ML) 0.083% nebulizer solutionIndicati ons:Moderate persistent asthma without complication Take 3 mL (2.5 mg) by nebulization every 4 (four) hours if needed for wheezing. 75 mL 3 023 Active naloxone (Narcan) 4 mg/0.1 mL nasal sprayIndications :Other chronic pain Administer 1 spray (4 mg) into affected nostril(s) if needed for opioid reversal. May repeat every 2-3 minutes if needed, alternating nostrils, until medical assistance becomes available. 2 each 3 024 2024 Active Multiple Vitamin (multivitamin) tabletIndication s: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) Take 1 tablet by mouth Once per day. 30 tablet 11 024 2024 Active FREESTYLE LITE test stripIndications :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) TEST BLOOD SUGAR FOUR TIMES DAILY 100 strip 11 Active TRUEplus Lancets 33G miscIndications: Diabetes mellitus [...] long-term current use of insulin (CMS/HCC) TAKE 1 TABLET BY MOUTH EVERY [...] at bedtime. 30 tablet 1 025 Active albuterol (Ventolin HFA) 108 (90 Base) MCG/ACT inhalerIndicatio ns:Moderate persistent asthma without complication INHALE 2 PUFFS BY MOUTH EVERY 4 TO 6 HOURS NEEDED 18 g 2 025 Active acetaminophen-co deine (Tylenol w/ Codeine #4) 300-60 MG tabletIndication s:Nontraumatic incomplete tear of rotator cuff, unspecified laterality TAKE 1 TABLET BY MOUTH EVERY 8 HOURS NEEDED FOR MODERATE PAIN 84 tablet 025 Active Dulaglutide (Trulicity) 4.5 MG/0.5ML solution auto-injectorInd ications:Diabete s mellitus type 2 with neurological manifestations (CMS/HCC) Inject 4.5 mg under the skin 1 (one) time per week. 2 mL 3 025 Active omeprazole (PriLOSEC) [address] capsuleIndicatio ns:Dysphagia, unspecified type Take 1 capsule (20 mg) by mouth 2 times daily. 60 capsule 3 025 Active cetirizine (ZyrTEC) 10 MG tabletIndication s:Moderate persistent asthma without complication TAKE 1 TABLET BY MOUTH EVERY MORNING 30 tablet 5 025 Active cyanocobalamin (Vitamin B-12) 1000 MCG tablet TAKE 1 TABLET BY MOUTH EVERY MORNING 30 tablet 5 025 Active omeprazole (PriLOSEC) [address] capsule Take 20 mg by mouth in the morning. 023 2024 Discontinued(R eorder (will not trigger notification to Pharmacy)) dulaglutide (Trulicity) 3 MG/0.5ML solution pen-injectorIndi cations: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) Inject 3 mg under the skin 1 (one) time per week. 4 each 024 2024 Discontinued cetirizine (ZyrTEC) 10 MG tabletIndication s:Moderate persistent asthma without complication TAKE 1 TABLET BY MOUTH EVERY MORNING 30 tablet 5 024 2024 Discontinued cyanocobalamin (Vitamin B-12) 1000 MCG tablet TAKE 1 TABLET BY MOUTH EVERY MORNING 30 tablet 024 2024 Discontinued albuterol (Ventolin HFA) 108 (90 Base) MCG/ACT inhalerIndicatio ns:Moderate persistent asthma without complication INHALE 2 PUFFS BY MOUTH EVERY 4 TO 6 HOURS NEEDED 18 g 2 024 2024 Discontinued acetaminophen-co deine (Tylenol w/ Codeine #4) 300-60 MG tabletIndication s:Nontraumatic incomplete tear of rotator cuff, unspecified laterality Take 1 tablet by mouth every 8 (eight) hours if needed for moderate pain for up to 28 days. 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: 11/17/23 Assessment & Plan (07/24/2024 3:07 PM EST): Timeline: - 11/17/23: MOTORCYCLE ENGINE ASSEMBLER Agreement, Utox/pill count as expected - 12/13/23: NCNS to Group visit - 12/27/23: Initial Group Visit, Utox/pill count as expected - 01/31/24: Group visit, Utox/pill count as expected - 03/13/24: Group visit, Utox/pill count as expected - 05/15/24: Group visit, Utox/pill count as expected - 07/17/24: Group visit, Utox/pill count as expected Assessment & Plan (05/15/2024 6:31 PM EST): Timeline: - 11/17/23: MOTORCYCLE ENGINE ASSEMBLER Agreement, Utox/pill count as expected - 12/13/23: [...] Overview (07/20/2022): ?? Followed by cardiology at [facility]. ?? Hx of reduced ejection fraction that [...] managing pain with Tylenol #4. Compliant with MOTORCYCLE ENGINE ASSEMBLER agreement ?? Followed by [facility] pain mnmt. Assessment & Plan (07/24/2024 3:07 PM EST): -Good engagement and participation with Group Medical Visit model -Encouraged multifactorial approach to pain control including pharm and non- pharm modalities -UTOX and Pill count as expected Assessment & Plan (05/15/2024 6:27 PM EST): [...] Healthcare maintenance 07/20/2022 Overview (04/28/2023): CRC: 2016 [facility] 10 year f/u PSA: 07/2022 0.57 HIV: Negative 2019 Hepatitis: Negative HCV 2019 Declines covid vaccine Assessment & Plan (01/13/2023 10:32 AM EDT): - Will request [facility] colonoscopy records Carpal tunnel syndrome on both sides 07/20/2022 Overview (07/20/2022): ?? EMG 12/2021-bilateral moderate-severe ulnar and median neuropathy and bilateral anahy guber anastamosis ?? Seen by [facility] Dr. Nixon 04/2022; surgical candidate would require [...] hypertension 07/14/2017 Overview (10/15/2022): ?? Followed by [facility] cardiology ?? Hydralazine 50mg b.i.d ?? Carvediol [...] 2 with neurological manif estations 12/04/2015 Overview (08/07/2024): Metformin, jardiance, trulicity Maintenance: Foot Exam: RISK:1, mild loss of [...] dysfunction 12/04/2015 Overview (07/20/2022): ?? Followed by [facility] urology and receives SQ testosterone Hypogonadism male 12/04/2015 Mixed hyperlipidemia 12/04/2015 Overview (10/15/2022): ?? Atorvastatin 40mg daily Assessment & Plan (10/15/2022 3:42 PM EDT): ?? Continue current regimen Old PR (myocardial infarction) 12/04/2015 Encounters Date Type Department Care Team Description 08/12/2024 Refill [facility] [address] [place] [address] Carmen Mejia FNP Moderate persistent asthma without complication 08/03/2024 9:15 AM EST Office Visit [facility] [address] [place] [address] Carmen Mejia FNP 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) (Primary Dx); Cardiomyopathy, unspecified type (CMS/HCC); Dysphagia, unspecified type; Dietary counseling; Exercise counseling; Class 1 obesity due to excess calories with serious comorbidity and body mass index (BMI) of 33.0 to 33.9 in adult 08/03/2024 Travel 07/30/2024 Refill [facility] [address] [place] [address] [place] FNP Moderate persistent asthma without complication; Nontraumatic incomplete tear of rotator cuff, unspecified laterality 07/23/2024 Patient Outreach [address] [address] [place]en mart[place] FNP Pre-visit Planning ((Unable to reach for PVP screening, LVM)) 07/17/2024 11:00 AM EST Office Visit [address] [address] Melani Haider FNP Traumatic incomplete tear of left rotator cuff, subsequent encounter (Primary Dx); Long-term current use of opiate analgesic 07/17/2024 Travel 06/29/[address] [address] RobertoCarmen FNP Med Refill 06/28/2024 Refill [facility] [address] [place] [address] [place] FNP Primary insomnia 06/28/2024 Refill [facility] [address] [place] [address] [place]en LITHOGRAPHIC PRESS OPERATOR Nontraumatic incomplete tear of rotator cuff, unspecified laterality 06/19/[address] [address] [place]en FNP Chronic obstructive pulmonary disease, unspecified COPD type ([facility]) 06/14/2024 Refill [facility] [address] [place] [address] RobertoCarmen martinez FNP Diabetes mellitus type 2 with neurological manifestations ([facility]) 05/25/2024 Refill [facility] [address] [place] [address] [place], Carmen, LITHOGRAPHIC PRESS OPERATOR Nontraumatic incomplete tear of rotator cuff, unspecified laterality 05/23/2024 Refill [facility] [address] [place] [address] Carmen Mejia FNP Type 2 diabetes mellitus with other specified complication, without long-term current use of insulin ([facility]) 05/15/2024 11:00 AM EST Office Visit [facility] [address] [place] [address] Melani Haider FNP Traumatic incomplete tear of left rotator cuff, subsequent encounter (Primary Dx); Long-term current use of opiate analgesic 05/15/2024 Telephone [facility] [address] [place], [place] [phone] Melani Haider FNP TC: MOTORCYCLE ENGINE ASSEMBLER Tier Classification 05/15/2024 Telephone [facility] [address] [place] [address] Michelle Rincon RN BPI Scoring 05/15/2024 Travel from Last 3 Months Immunizations Name Administration [...] Sign Reading Time Taken Comments Blood Pressure 136/75 08/03/2024 9:01 AM EST Pulse 83 08/03/2024 9:01 AM EST Temperature 36.2 ??C (97.1 ??F) 08/03/2024 9:01 AM ES T Respiratory Rate 20 08/03/2024 9:01 AM EST Oxygen Saturation 98% 08/03/2024 9:01 AM EST Inhaled Oxygen Concentration - - Weight 93 kg (205 lb) 08/03/2024 9:01 AM EST Height 167.6 cm (5' 6 ) 08/03/2024 9:01 AM EST Body Mass Index 33.09 08/03/2024 9:01 AM EST Plan of Treatment Upcoming Encounters Date Type Department Care Team (Late st Contact Info) Description 09/25/2024 11:00 AM EDT Office Visit [facility] [address] [place] [address] 10/31/2024 10:15 AM EDT Office Visit [facility] [address] [place] [address] Roberto, Carmen, LITHOGRAPHIC PRESS OPERATOR [address] [place] [address] Health Maintenance Due Date Last Done Comments [...] Risk 60-74 years 1-dose series) 2024 Diabetes: Foot Exam 07/20/2024 07/20/2023, 07/20/2023, 07/20/2023 Lipid Panel 07/20/2024 07/20/2023, 05/20, 04/15/2022, Additional history exists Diabetes: Urine Protein Screening 08/30/2024 08/31/2023, 07/20/2023, 07/20/2022, Additional history exists Diabetes: Hemoglobin A1C 10/31/2024 025, 02/10/2024, 11/09/2023, Additional history exists SDOH Screening 11/08/2024 11/09/2023 Depression Screening 02/09/2025 02/10/2024, 02/10/20 24 Colonoscopy 06/20/2025 06/20/2015 Colorectal Cancer Screening 06/20/2025 Tobacco Screening 08/07/2025 08/07/2024 DTaP/Tdap/Td Vaccines (3 - Td or Tdap) [...] Name Priority Date/Time Associated Diagnosis Comments POCT GLUCOSE Routine 08/03/2024 9:13 AM EST 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) POCT GLYCATED HEMOGLOBIN, TOTAL Routine 08/03/2024 9:13 AM EST 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) POCT KINA-14 URINE DRUG SCREEN Routine 07/17/2024 2:07 PM EST Long-term current use of opiate analgesic Traumatic incomplete tear of left rotator cuff, subsequent encounter POCT KINA-14 URINE DRUG SCREEN Routine 05/15/2024 1:46 PM EST Traumatic incomplete tear of left rotator cuff, subsequent encounter Long-term current use of opiate analgesic ALBUMIN, RANDOM URINE W/CREATININE Routine 08/31/2023 8:39 [...] Recently Relevant to Health Maintenance Results * (ABNORMAL) POCT HGB A1C (08/03/2024 9:13 AM EST) Hemoglobin A1C 8.1(A) 4.0 - 6.0 % Blood 08/03/2024 9:13 AM EST [facility] POINT OF CARE TEST ENTER/EDIT ORDERABLES Final Result * POCT Glucose (08/03/2024 9:13 AM EST) Glucose Blood, POC 167 60 - 200 mg/dL Blood Capillary blood specimen / Unknown 08/03/2024 9:13 AM EST [facility] POINT OF CARE TEST ENTER/EDIT ORDERABLES Final Result * POCT KINA-14 Urine Drug Screen (07/17/2024 2:07 PM EST) Only the most recent of2 resultswithin the time period is included. Opiate Screen, Urine Positive Urine Urine specimen obtained by clean catch procedure / Unknown 07/17/2024 2:07 PM EST Michelle Peters RN - 07/17/2024 2:07 PM EST UTOX cup Lot#[id number] Exp. 03/14/26 Internal Pass Control Melani Haider LITHOGRAPHIC PRESS OPERATOR POINT OF CARE TEST ENTER/EDIT ORDERABLES Final Result * (ABNORMAL) Albumin, Random Urine W/Creatinine (08/31/2023 8:39 AM EDT) Creatinine, Urine 97.43 mg/dL [facility] Microalbumin Urine 122.0 mg/L [facility] Microalbum Creatinine Ratio Ur 125.2(H) <30 ug/mg cr LABS Comment:Albumin/Creatinine R atio Reference Ranges: Normal: < 30 ug/mg creatinine Microalbuminuria: 30 - 300 ug/mg creatinineClinical Albuminuria: > 300 ug/mg creatinine 08/31/2023 8:39 AM EDT 08/31/2023 11:26 AM EDT [facility] LITHOGRAPHIC PRESS OPERATOR LAB URINE ORDERABLES Final Re sult LABS [address] [place] [address] [phone] * Lipid Panel, Standard (07/20/2023 9:32 AM EST) Triglycerides 71 <150 mg/dL [facility] Comment:Desirable Triglyceri de: less than 150 mg/dLBorderline High Triglyceride 150-199 mg/dLHigh Triglyceride: 200-499 mg/dLVery High Triglyceride: greater than or equal to 5OO mg/dL Cholesterol 127 <200 mg/dL LAB[facility] Comment:Desirable Cholestero l: less than 200 mg/dLBorderline High Cholesterol: 200-239 mg/dLHigh Cholesterol: greater than 239 mg/dL LDL Cholesterol Calculated 64 <100 mg/dL LAB[facility] Comment:Desirable LDL: less than 100 mg/dLNear Optimal/Above Optimal LDL: 110- 129 mg/dLBorderline High LDL: 130-159 mg/dLHigh LDL: 160-189 mg/dLVery High LDL: greater than or equal to 190 mg/dL HDL Cholesterol 49 >40 mg/dL [facility] Comment:Desirable HDL: great er than 40 mg/dL Note: This HDL assay may give artificially low results in patients with liver disease. Blood Venous blood specimen / Unknown 07/20/2023 9:32 AM EST 07/20/2023 11:47 AM EST [facility] LITHOGRAPHIC PRESS OPERATOR LAB BLOOD ORDERABLES Final Re sult LABS [address] [place] [address] [phone] * HEPATITIS C AB W/REFL TO HCV RNA, QN, PCR (02/27/2020 9:28 AM EDT) HEPATITIS C ANTIBODY NON-REACT LAYNE NON-REACT LAYNE SD [facility] INDEX 0.02 <1.00 [facility] Comment: ?? HCV antibody was non-reactive. There is no laboratory ?? evidence of HCV infection. ?? In most cases, no further action is required. However, if recent HCV exposure is suspected, a test for HCV RNA (test code 68440) is suggested. ?? For additional information please refer to http://education.Uber/faq/GKM70p4 (This link is being provided for informational/ educational purposes only.) ?? 02/27/2020 9:28 AM EDT Marcos Robles LITHOGRAPHIC PRESS OPERATOR HISTORICAL/NON ORDERABLE LA BS Final Result [facility] [address] * HIV 1/2 ANTIGEN/ANTIBODY,FOURTH GENERATION W/RFL (02/27/2020 9:28 AM EDT) HIV-1/2 ANTIGEN AND ANTIBODIES, 4TH GENERATION W/ REFLEX NON-REACT LAYNE NON-REACT LAYNE SD [facility] Comment: HIV-1 antigen and HIV-1/HIV-2 [...] ? For additional information please refer to http://education.Uber/faq/PLQ477 (This link is being provided for informational/ educational purposes only.) ? The performance of this assay has not been clinically validated in patients less than 2 years old. ?? 02/27/2020 9:28 AM EDT Marcos Robels LITHOGRAPHIC PRESS OPERATOR LAB BLOOD ORDERABLES Final Result [facility] [address] [place] [address] * (ABNORMAL) Colonoscopy (06/20/2015) Colonoscopy Abnormal( A) Normal Comment:polyps-5 year follow up Historical Provider HEALTH MAINTENANCE Final Result from Last 3 Months or Most Recently Relevant to Health Maintenance Insurance - [facility] - [facility] [place] Care Teams Conductor And Engineer Relationship Specialty Start Date End Date Carmen Mejia FNP [address] [place] [phone] PCP - General Family Medicine 03/18/21
--- OUTSIDE RECORDS SUMMARY | 2024-08-14 12:17 | XMS_ITS | Encounter Summary ---
Author Organization [employer] Address [address] [facility] 7t [place] [address] Care Team Providers Care Awake Overnight Counselor Name Role Phone Carmen Mejia [facility] Primary Care Provider [phone] Encounter Details Date Type Department Care Team (Late Contact Info) Description 10/15/2022 Orders Only [facility] [address] [place], [place] [phone] Ritika Mcgovern LPN Social History Tobacco Use [...] Description 09/25/2024 11:00 AM EDT Office Visit [facility] [address] [place] [address] [phone] 10/31/2024 10:15 AM EDT Office Visit [facility] [address] [place] [address] RobertoCarmen [facility] [address] [place] [address] documented as of this encounter Visit Diagnoses Not on filedocumented in this encounter Additional Health Concerns Assessment Noted Time PHQ-9 Depression Total Score: 0 10/15/19 23 8:58 AM EDT documented as of this encounter Care Teams Awake Overnight Counselor Relationship Specialty Start Date End Date Carmen Mejia FNP [address] [place] [phone] PCP - General Family Medicine 03/18/21 documented as of this encounter
--- OUTSIDE RECORDS SUMMARY | 2024-08-14 12:17 | XMS_ITS | Encounter Summary ---
Author Organization [employer] Address [address] [facility] 7t [place] [address] Care Team Providers Care Recycling Attendant Name Role Phone Carmen Mejia [employer] Primary Care Provider [phone] Encounter Details Date Type Department Care Team [...] is your housing situation today? I have kishorkendrick richards 04/04/[address] you [...] Description 09/25/2024 11:00 AM EDT Office Visit [facility] [address] [place] [address] 10/31/2024 10:15 AM EDT Office Visit [facility] [address] [place] [phone] Carmen Mejia FNP [address] [place] [address] documented as of this encounter Visit Diagnoses Not on filedocumented in this encounter Additional Health Concerns Assessment Noted Time PHQ-9 Depression Total Score: 0 02/10/20 24 9:01 AM EDT documented as of this encounter Care Teams Recycling Attendant Relationship Specialty Start Date End Date Carmen Mejia FNP [address] [place] [phone] PCP - General Family Medicine 03/18/21 documented as of this encounter
--- OUTSIDE RECORDS SUMMARY | 2024-08-14 12:17 | XMS_ITS | Encounter Summary ---
Author Organization [employer] [facility] Address [address] [place] [address] 7t [place] [address] Care Team Providers Care News Video Editor Name Role Phone Carmen Mejia [facility] Primary Care Provider [phone] Reason for Visit * Reason Comments Med Refill Encounter Details Date Type Department Care Team (Late st Contact Info) Description 11/18/2022 Refill [facility] [address] [place], [place] [phone] [facility] [address] [place] [address] Primary insomnia; Type 2 diabetes mellitus with other specified complication, without long-term current use of insulin ([facility]) Social History Tobacco Use Types Packs/Day Years [...] Description 09/25/2024 11:00 AM EDT Office Visit [facility] [address] [place] [phone] 10/31/2024 10:15 AM EDT Office Visit [facility] [address] [place] [phone] [place] FNP [address] [place] [address] documented as of this encounter Visit Diagnoses Diagnosis Primary insomnia Persistent disorder of initiating or maintaining sleep Type 2 diabetes mellitus with other specified complication, without long-term current use of insulin ([facility]) documented in this encounter Additional Health Concerns Assessment Noted Time PHQ-9 Depression Total Score: 0 10/15/19 23 8:58 AM EDT documented as of this encounter Care Teams News Video Editor Relationship Specialty Start Date End Date Carmen Mejia FNP [address] [place] [address] PCP - General Family Medicine 03/18/21 documented as of this encounter
--- OUTSIDE RECORDS SUMMARY | 2024-08-14 12:18 | XMS_ITS | Encounter Summary ---
Author Organization [employer] Address [address] [facility] [address]t [place] [address] Care Team Providers Care Environmental Marketer Name Role Phone Carmen Mejia [facility] Primary Care Provider Reason for Visit * Reason Comments Med Refill Encounter Details Date Type Department Care Team (Late st Contact Info) Description 10/12/2023 Refill [facility] [address] [place], [place] [phone] Carmen Mejia [facility] [address] [place] [address] Primary insomnia Social History Tobacco Use Types [...] Description 09/25/2024 11:00 AM EDT Office Visit [facility] [address] [place] [phone] 10/31/2024 10:15 AM EDT Office Visit [address] [address] Carmen Mejia FNP [address] [place] [address] documented as of this encounter Visit Diagnoses Diagnosis Primary insomnia Persistent disorder of initiating or maintaining sleep documented in this encounter Additional Health Concerns Assessment Noted Time PHQ-9 Depression Total Score: 24 023 9:04 AM EDT documented as of this encounter Care Teams Environmental Marketer Relationship Specialty Start Date End Date Carmen Mejia FNP [address] [place] [phone] PCP - General Family Medicine 03/18/21 documented as of this encounter
--- OUTSIDE RECORDS SUMMARY | 2024-08-14 12:18 | XMS_ITS | Encounter Summary ---
Author Organization [employer] Address 75 [facility] 7t [place] [address] Care Team Providers Care Lithographic Photographer Name Role Phone Roberto [facility] Primary Care Provider [phone] Reason for Visit * Reason Comments Med Refill Encounter Details Date Type Department Care Team (Late st Contact Info) Description 01/02/2024 Refill [facility] MED & PEDS [address] [place], [place] [phone] Roberto [facility] [address] [place] [address] Nontraumatic incomplete tear of rotator cuff, unspecified [...] Description 09/25/2024 11:00 AM EDT Office Visit [facility] [address] [place] [address] 10/31/2024 10:15 AM EDT Office Visit [address] [address] Carmen Mejia FNP [address] [place] [address] documented as of this encounter Visit Diagnoses Diagnosis Nontraumatic incomplete tear of rotator cuff, unspecified laterality documented in this encounter Additional Health Concerns Assessment Noted Time PHQ-9 Depression Total Score: 0 11/09/19 24 9:34 AM EDT documented as of this encounter Care Teams Lithographic Photographer Relationship Specialty Start Date End Date Carmen Mejia FNP [address] [place] [address] PCP - General Family Medicine 03/18/21 documented as of this encounter
--- OUTSIDE RECORDS SUMMARY | 2024-08-14 12:18 | XMS_ITS | Encounter Summary ---
Author Organization [employer] Address 75 [facility] 7t [place] [address] Care Team Providers Care Currency Exchange Specialist Name Role Phone Roberto [facility] Primary Care Provider [phone] Reason for Visit * Reason Comments Med Refill Encounter Details Date Type Department Care Team (Late st Contact Info) Description 01/03/2024 Refill [facility] MED & PEDS [address] [place], [place] [phone] Roberto [facility] [address] [place] [address] Nontraumatic incomplete tear of rotator cuff, unspecified [...] Description 09/25/2024 11:00 AM EDT Office Visit [facility] MEDICINE [address] [place] [address] 10/31/2024 10:15 AM EDT Office Visit [address] [address] Carmen Mejia FNP [address] [place] [address] documented as of this encounter Visit Diagnoses Diagnosis Nontraumatic incomplete tear of rotator cuff, unspecified laterality documented in this encounter Additional Health Concerns Assessment Noted Time PHQ-9 Depression Total Score: 0 11/09/19 24 9:34 AM EDT documented as of this encounter Care Teams Currency Exchange Specialist Relationship Specialty Start Date End Date Carmen Mejia FNP [address] [place] [address] PCP - General Family Medicine 03/18/21 documented as of this encounter
--- OUTSIDE RECORDS SUMMARY | 2024-08-14 12:18 | XMS_ITS | Encounter Summary ---
Author Organization [employer] Address [address] [place] [address] 7t [place] [address] Care Team Providers Care Plan Rep Name Role Phone Carmen Mejia FRUIT FARMER Primary Care Provider [phone] Encounter Details Date Type Department Care Team (Late st Contact Info) Description 06/11/2022 Orders Only [facility] CH[facility] MED & PEDS [address] [place] [address] Ritika Mcgovern LPN Social History Tobacco Use [...] Description 09/25/2024 11:00 AM EDT Office Visit [facility] [address] [place] [address] 10/31/2024 10:15 AM EDT Office Visit [facility] [address] [place] [address] Carmen Mejia FNP [address] [place] [address] documented as of this encounter Visit Diagnoses Not on filedocumented in this encounter Care Teams Plan Rep Relationship Specialty Start Date End Date Carmen Mejia FNP [address] [place] [address] PCP - General Family Medicine 03/18/21 documented as of this encounter
--- OUTSIDE RECORDS SUMMARY | 2024-08-14 12:18 | XMS_ITS | Encounter Summary ---
Author Organization [employer] Address 75 [facility] 7t [place] [address] Care Team Providers Care County Treasurer Name Role Phone Carmen Mejia [facility] Primary Care Provider [phone] Reason for Visit * Reason Comments Med Refill Encounter Details Date Type Department Care Team (Late st Contact Info) Description 01/08/2024 Refill [facility] [address] [place], [place] [phone] Carmen Mejia [facility] 230 [place] [address] Moderate persistent asthma without complication Social History [...] Description 09/25/2024 11:00 AM EDT Office Visit [facility] [address] [place] [address] 10/31/2024 10:15 AM EDT Office Visit [facility] [address] [place] [address] Carmen Mejia FNP [address] [place] [address] documented as of this encounter Visit Diagnoses Diagnosis Moderate persistent asthma without complication documented in this encounter Additional Health Concerns Assessment Noted Time PHQ-9 Depression Total Score: 0 11/09/19 24 9:34 AM EDT documented as of this encounter Care Teams County Treasurer Relationship Specialty Start Date End Date Carmen Mejia FNP [address] [place] [address] PCP - General Family Medicine 03/18/21 documented as of this encounter
--- OUTSIDE RECORDS SUMMARY | 2024-08-14 12:18 | XMS_ITS | Encounter Summary ---
Author Organization [employer] Address 75 [facility] 7t [place] [address] Care Team Providers Care Service Agent Name Role Phone Carmen Mejia STRIPPER APPRENTICE Primary Care Provider [phone] Encounter Details Date Type Department Care Team (Latest Contact Info) Description 08/03/2024 Travel Social History Tobacco Use Types Packs/Day [...] Description 09/25/2024 11:00 AM EDT Office Visit [facility]INE [address] [place] [address] 10/31/2024 10:15 AM EDT Office Visit [facility] [address] [place] [address] Carmen Mejia FNP 230 [place] [address] documented as of this encounter Visit Diagnoses Not on filedocumented in this encounter Additional Health Concerns Assessment Noted Time PHQ-9 Depression Total Score: 0 02/10/20 24 9:01 AM EDT documented as of this encounter Care Teams Service Agent Relationship Specialty Start Date End Date Carmen Mejia FNP [address] [place] [address] PCP - General Family Medicine 03/18/21 documented as of this encounter
--- OUTSIDE RECORDS SUMMARY | 2024-08-14 12:18 | XMS_ITS | Encounter Summary ---
Author Organization [employer] Address 75 [facility] 7t [place] [address] Care Team Providers Care Regional Education Manager Name Role Phone Carmen Mejia [facility] Primary Care Provider [phone] Reason for Visit * Reason Comments Pre-visit Planning (Unable to reach for PVP screening, LVM) Encounter Details Date Type Department Care Team ([facility] st Contact Info) Description 07/23/2024 Patient Outreach [facility] [address] [place] [address] BladenCarmen martinez [facility] [address] [place] [address] Pre-visit Planning ((Unable to reach for PVP screening, LVM)) Social History Tobacco Use Types Packs/Day Years [...] as of this encounter Progress Notes * Rosa Huston - 07/23/2024 9:35 AM EST CC Rosa placed outbound call to patient to complete pre-visit planning. No answer at this time. Patient name and were not confirmed. CC left voicemail requesting return call. Direct contact information provided. documented in this encounter Plan of Treatment Upcoming Encounters Date Type Department Care Team (Late st Contact Info) Description 09/25/2024 11:00 AM EDT Office Visit [facility] [address] [place] [address] 10/31/2024 10:15 AM EDT Office Visit [facility] [address] [place] [address] Carmen Mejia FNP [address] [place] [address] documented as of this encounter Visit Diagnoses Not on filedocumented in this encounter Additional Health Concerns Assessment Noted Time PHQ-9 Depression Total Score: 0 02/10/20 24 9:01 AM EDT documented as of this encounter Care Teams Regional Education Manager Relationship Specialty Start Date End Date Carmen Mejia FNP [address] [place] [address] PCP - General Family Medicine 03/18/21 documented as of this encounter
--- OUTSIDE RECORDS SUMMARY | 2024-08-14 12:18 | XMS_ITS | Encounter Summary ---
Author Organization [employer] Address 75 [facility] 7t [place] [address] Care Team Providers Care Child Adolescent Psychiatrist Name Role Phone Roberto [facility] Primary Care Provider [phone] Reason for Visit * Reason Comments Med Refill Encounter Details Date Type Department Care Team (Late st Contact Info) Description 07/30/2024 Refill [facility] CHC MED & PEDS [address] [place], [place] [phone] [facility] [address] [place] [address] Moderate persistent asthma without complication; Nontraumatic incomplete [...] Description 09/25/2024 11:00 AM EDT Office Visit [facility] MEDICINE [address] [place] [address] 10/31/2024 10:15 AM EDT Office Visit [address] [address] Carmen Mejia FNP [address] [place] [address] documented as of this encounter Visit Diagnoses Diagnosis Moderate persistent asthma without complication Nontraumatic incomplete tear of rotator cuff, unspecified laterality documented in this encounter Additional Health Concerns Assessment Noted Time PHQ-9 Depression Total Score: 0 02/10/20 24 9:01 AM EDT documented as of this encounter Care Teams Child Adolescent Psychiatrist Relationship Specialty Start Date End Date Carmen Mejia FNP [address] [place] [address] PCP - General Family Medicine 03/18/21 documented as of this encounter
--- OUTSIDE RECORDS SUMMARY | 2024-08-14 12:18 | XMS_ITS | Encounter Summary ---
Author Organization [employer] Address 75 [facility] 7t [place] [address] Care Team Providers Care Rotary Soil Stabilizer Operator Name Role Phone Carmen Mejia PROGRAM COORDINATOR EXECUTIVE EDUCATION Primary Care Provider [phone] Encounter Details Date Type Department Care Team (Late st Contact Info) Description 05/05/2023 Abstract [facility] [address] [place] [address] Dia Gibson Social History Tobacco Use Types [...] Description 09/25/2024 11:00 AM EDT Office Visit [facility] [address] [place] [address] 10/31/2024 10:15 AM EDT Office Visit [facility] [address] [place] [address] Carmen Mejia FNP [address] [place] [address] documented as of this encounter Visit Diagnoses Not on filedocumented in this encounter Additional Health Concerns Assessment Noted Time PHQ-9 Depression Total Score: 24 023 9:04 AM EDT documented as of this encounter Care Teams Rotary Soil Stabilizer Operator Relationship Specialty Start Date End Date Carmen Mejia FNP [address] [place] [address] PCP - General Family Medicine 03/18/21 documented as of this encounter
--- OUTSIDE RECORDS SUMMARY | 2024-08-14 12:18 | XMS_ITS | Encounter Summary ---
Author Organization [facility] Address [address] [place] [address] [address] [address] Care Team Providers Care Location Worker Name Role Phone Carmen Mejia Primary Care Provider [phone] Reason for Referral * Consultation (Routine) - Authorized Specialty Diagnoses / Procedures Referred By Jazmyne ramirez Referred To Contact Gastroenterology Diagnoses Dysphagia, unspecified type Carmen Mejia FNP [address] [place] [address] Phone: tel: fax: [facility] [address] [place] [address] Phone: tel: fax: Referral ID Status Reason Start Date Expiration Date Visits Requested Visits Authorized [id number] Authorized Specialty Services Required 08/07/2024 08/07/2025 1 1 * Imaging (Routine) - Pending Review Specialty Diagnoses / Procedures Referred By Jazmyne ramirez Referred To Contact Cardiology Diagnoses Cardiomyopathy, unspecified type (CMS/HCC) Procedures Transthoracic Echo (TTE) Complete Carmen Mejia FNP [address] [place] [address] Phone: tel: fax: [address] Phone: tel: fax: Referral ID Status Reason Start Date Expiration Date Visits Requested Visits Authorized [id number] Pending Review Perform Procedure 08/03/2024 08/03/2025 1 1 Reason for Visit * Reason Comments Follow-up Diabetes Encounter Details Date Type Department Care Team (Latest Contact Info) Description 08/03/2024 9:15 AM EST Office Visit [facility]INE [address] [place], [place] [phone] Collins Carmen, [facility] [address] [place] [address] 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) (Primary Dx); Cardiomyopathy, unspecified type (CMS/HCC); Dysphagia, unspecified type; Dietary counseling; Exercise counseling; Class 1 obesity due to excess calories with serious comorbidity and body mass index (BMI) of 33.0 to 33.9 in adult Social History Tobacco Use Types Packs/Day Years [...] AM EDT documented as of this encounter Last Filed Vital Signs Vital Sign Reading [...] Mass Index 33.09 08/03/2024 9:01 AM EST documented in this encounter Progress Notes * [facility], [facility] - 08/03/2024 9:15 AM EST SUBJECTIVE: Andry Lehman is a 59 y.o. year old male T2DM, cardiomyopathy with ICD in place, hx of ME, HTN and CAD who presents for diabetes follow up Acute Concerns: GI-persistent dyspepsia, dysphagia. He was seen by [facility] in 2022 with similar symptoms and a negative barium swallow study. Symptoms improved with diet changes. Interim Updates: Increased stress at home contributing to some dietary indiscretion and change in prior exercise routine. He endorses some increase in fatigue and frustration with weight gain (4lb/6mo) No new shortness of breath, orthopnea, or edema. Follows with Dr. Pillai [facility] cardiology. Remote ICD check Q 3 months. Last office visit 02/2024 with plan for repeat echo in 1 year. Patient no longer on any diuretic treatment. Reports a couple episodes of nonspecific chest pain that self resolve. Not associated withphysical activity. No current symptoms. Wt Readings from Last 3 Encounters: 08/03/24 205 lb (93 kg) 02/10/24 201 lb (91.2 kg) 12/12/23 199 lb (90.3 kg) Social History Social History Narrative Tobacco Use: None ETOH: None Marijuana Use: None Other substance use: None Current living environment: Lives with Children: 4 adult Patient Active Problem List Diagnosis Asthma Cardiomyopathy (CMS/HCC) Coronary arteriosclerosis 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) Erectile dysfunction Essential hypertension Hypogonadism male Implantable cardioverter-defibrillator (ICD) in situ Mixed hyperlipidemia Moderate nonproliferative diabetic retinopathy (CMS/HCC) Old ME (myocardial infarction) Partial thickness rotator cuff tear Healthcare maintenance Carpal tunnel syndrome on both sides Mood disorder (CMS/HCC) Microalbuminuria Polycythemia HFrEF (heart failure with reduced ejection fraction) (CMS/HCC) Long-term current use of opiate analgesic Past Surgical History: Procedure Laterality Date PROSTHODONTIC PROCEDURE No family history on file. Review of Systems Constitutional: Negative for activity change, diaphoresis, fatigue, fever and unexpected weight change. Eyes: Negative for visual disturbance. Respiratory: Negative for apnea, cough, chest tightness and shortness of breath. Cardiovascular: Negative for chest pain, palpitations and leg swelling. Gastrointestinal: Negative for abdominal pain and nausea. Neurological: Negative for dizziness, syncope, light-headedness and headaches. OBJECTIVE: Vitals: 08/03/24 0901 BP: 136/75 Pulse: 83 Resp: 20 Temp: 97.1 ??F (36.2 ??C) SpO2: 98% Physical Exam Constitutional: Appearance: Normal appearance. HENT: Head: Normocephalic. Right Ear: External ear normal. Left Ear: External ear normal. Nose: Nose normal. Eyes: Conjunctiva/sclera: Conjunctivae normal. Cardiovascular: Rate and Rhythm: Normal rate and regular rhythm. Heart sounds: Normal heart sounds. Pulmonary: Effort: Pulmonary effort is normal. Breath sounds: Normal breath sounds. Musculoskeletal: Right lower leg: No edema. Left lower leg: No edema. Skin: General: Skin is warm and dry. Capillary Refill: Capillary refill takes less than 2 seconds. Neurological: General: No focal deficit present. Mental Status: He is alert and oriented to person, place, and time. Psychiatric: Mood and Affect: Mood normal. Behavior: Behavior normal. ASSESSMENT/PLAN 1. 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) (Primary) Lab Results Component Value Date HGBA1C 8.1 (A) 08/03/2024 HGBA1C 8.1 (A) 02/10/2024 HGBA1C 7.1 (A) 11/09/2023 Lab Results Component Value Date MICROALBUR 122.0 08/31/2023 CREATININE 1.01 11/09/2023 - Increase Trulicity to 4.5 - Continue Jardiance 25, metformin 1000 mg twice daily - Patient may benefit from Mounjaro for improved weight loss will consider switch if no improvementin A1c at follow-up -Foot Exam: Follows with podiatry Eye Exam: Eye and Lasik. UTD Statin: Yes ASA: Yes KATJA/ARB: No, jardiance - POCT HGB A1C - POCT Glucose - Lipid Panel, Standard; Future - Comprehensive Metabolic Panel; Future - Albumin, Random Urine W/Creatinine; Future - Lipid Panel, Standard - Comprehensive Metabolic Panel - Albumin, Random Urine W/Creatinine - Dulaglutide (Trulicity) 4.5 MG/0.5ML solution auto-injector; Inject 4.5 mg under the skin 1 (one)time per week. Dispense: 2 mL; Refill: 3 2. Cardiomyopathy, unspecified type (CMS/HCC) -No evidence of fluid overload on physical exam; weight gain likely secondary to diet and exercise changes. Will hold off on restarting any diuretic therapy at this time. - Will order echocardiogram and check baseline BNP. - Patient to contact cardiology office to request sooner follow-up - Start recording daily weight. Contact cardiology office if >2lb weight gain in 24 hours period - Strict ED precautions advised - B Type Natriuretic Peptide (BNP); Future - B Type Natriuretic Peptide (BNP) - Transthoracic Echo (TTE) Complete; Future - Transthoracic Echo (TTE) Complete 3. Dysphagia, unspecified type -May be due to reflux from recent diet changes. Will increase omeprazole to twice daily and refer back to GI for follow-up - omeprazole (PriLOSEC) [address] capsule; Take 1 capsule (20 mg) by mouth 2 times daily. Dispense: 60 capsule; Refill: 3 documented in this encounter Plan of Treatment Upcoming Encounters Date Type Department Care Team (Late st Contact Info) Description 09/25/2024 11:00 AM EDT Office Visit [address] [phone] 10/31/2024 10:15 AM EDT Office Visit [facility] [address] [place] [address] [facility] [address] [place] [address] Scheduled Orders Name Type Priority Associated Diagnoses Orde r Schedule Lipid Panel, Standard Lab Routine 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) Expected: 08/03/2024 (Approximate), Expires: 08/03/2025 Comprehensive Metabolic Panel Lab Routine 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) Expected: 08/03/2024 (Approximate), Expires: 08/03/2025 Albumin, Random Urine W/Creatinine Lab Routine 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) Expected: 08/03/2024 (Approximate), Expires: 08/03/2025 B Type Natriuretic Peptide (BNP) Lab Routine Cardiomyopathy, unspecified type (CMS/HCC) Expected: 08/03/2024, Expires: 08/03/2025 Transthoracic Echo (TTE) Complete Echocardiography Routine Cardiomyopathy, unspecified type (CMS/HCC) Expected: 08/03/2024 (Approximate), Expires: 08/03/2026 Scheduled Referrals Name Type Priority Associated Diagnoses Order Schedule Referral to Gastroenterology Outpatient Referral Routine Dysphagia, unspecified type Expected: 08/07/2024 (Approximate), Expires: 08/07/2025 documented as of this encounter Procedures Procedure Name Priority Date/Time Associated Diagnosis Comments POCT GLYCATED HEMOGLOBIN, TOTAL Routine 08/03/2024 9:13 AM EST 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) POCT GLUCOSE Routine 08/03/2024 9:13 AM EST 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) documented in this encounter Results * POCT Glucose (08/03/2024 9:13 AM EST) Glucose Blood, POC 167 60 - 200 mg/dL Blood Capillary blood specimen / Unknown 08/03/2024 9:13 AM EST [facility] POINT OF CARE TEST ENTER/EDIT ORDERABLES Final Result * (ABNORMAL) POCT HGB A1C (08/03/2024 9:13 AM EST) Hemoglobin A1C 8.1(A) 4.0 - 6.0 % Blood 08/03/2024 9:13 AM EST [facility] POINT OF CARE TEST ENTER/EDIT ORDERABLES Final Result documented in this encounter Visit Diagnoses Diagnosis 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)- Primary Cardiomyopathy, unspecified type (CMS/HCC) Dysphagia, unspecified type Dietary counseling Dietary surveillance and counseling Exercise counseling Class 1 obesity due to excess calories with serious comorbidity and body mass index (BMI) of 33.0 to 33.9 in adult documented in this encounter Additional Health Concerns Assessment Noted Time PHQ-9 Depression Total Score: 0 02/10/20 24 9:01 AM EDT documented as of this encounter Care Teams Location Worker Relationship Specialty Start Date End Date [facility] Carmen PROTECTIVE SIGNAL REPAIRER [address] [place] [address] PCP - General Family Medicine 03/18/21 documented as of this encounter
--- OUTSIDE RECORDS SUMMARY | 2024-08-14 12:18 | XMS_ITS | Encounter Summary ---
Author Organization [employer] Address 75 [facility] [address] [place] [address] Care Team Providers Care Sizing Machine Operator Name Role Phone Carmen Mejia Primary Care Provider [phone] Encounter Details Date Type Department Care Team (Late st Contact Info) Description 07/07/2022 Orders Only [facility] MED & PEDS [address] [place] [address] Ritika Mcgovern LPN Social History Tobacco Use [...] Description 09/25/2024 11:00 AM EDT Office Visit [facility] MEDICINE [address] [place] [address] 10/31/2024 10:15 AM EDT Office Visit [facility] MEDICINE [address] [place] [address] Carmen Mejia FNP [address] [place] [address] documented as of this encounter Visit Diagnoses Not on filedocumented in this encounter Care Teams Sizing Machine Operator Relationship Specialty Start Date End Date Carmen Mejia FNP [address] [place] [address] PCP - General Family Medicine 03/18/21 documented as of this encounter
--- OUTSIDE RECORDS SUMMARY | 2024-08-14 12:18 | XMS_ITS | Encounter Summary ---
Author Organization [employer] Address 75 [facility] 7t [place] [address] Care Team Providers Care Economics Instructor Name Role Phone Carmen Mejia [facility] Primary Care Provider [phone] Reason for Visit * Reason Comments Med Refill Encounter Details Date Type Department Care Team (Late st Contact Info) Description 08/12/[address] [facility] MEDICINE [address] [place], [place] [phone] Carmen Mejia [facility] 230 [place] [address] Moderate persistent asthma without complication Social History [...] Description 09/25/2024 11:00 AM EDT Office Visit [facility] [address] [place] [address] 10/31/2024 10:15 AM EDT Office Visit [facility] [address] [place] [address] Carmen Mejia FNP 230 [place] [address] documented as of this encounter Visit Diagnoses Diagnosis Moderate persistent asthma without complication documented in this encounter Additional Health Concerns Assessment Noted Time PHQ-9 Depression Total Score: 0 02/10/20 24 9:01 AM EDT documented as of this encounter Care Teams Economics Instructor Relationship Specialty Start Date End Date Carmen Meija FNP [address] [place] [address] PCP - General Family Medicine 03/18/21 documented as of this encounter
--- OUTSIDE RECORDS SUMMARY | 2024-08-14 12:18 | XMS_ITS | Encounter Summary ---
Author Organization [employer] [facility] Address [address] [place] [address] 7t [place] [address] Care Team Providers Care Oil Well Logging Engineer Name Role Phone Carmen Mejia Primary Care Provider [phone] Encounter Details Date Type Department Care Team (Late st Contact Info) Description 07/08/2022 Orders Only [facility] [address] [place] [address] Shannon Sargent LPN Social History Tobacco Use [...] Description 09/25/2024 11:00 AM EDT Office Visit [facility] [address] [place] [address] 10/31/2024 10:15 AM EDT Office Visit [address] [address] Carmen Mejia FNP [address] [place] [address] documented as of this encounter Visit Diagnoses Not on filedocumented in this encounter Care Teams Oil Well Logging Engineer Relationship Specialty Start Date End Date Carmen Mejia FNP [address] [place] [address] PCP - General Family Medicine 03/18/21 documented as of this encounter
== END 2024-08-14 11:14 | disposition home or self-care (01) ==
LOC: HO.HUSH 10:24
PROVIDERS: PCP Registered Nurse; Visit Provider Urology
DX: E11.69 Type 2 diabetes mellitus with other specified complication (principal); N52.1 Erectile dysfunction due to diseases classified elsewhere; E29.1 Testicular hypofunction
CPT/HCPCS: 99213; G2211

== ENCOUNTER → 2024-08-14 10:24 | Outpatient (BNVA) | payer OTHER, SELFPAY | PROVIDERS: PCP Registered Nurse; Visit Provider Urology ==

== ENCOUNTER 2024-08-20 09:52 | Outpatient (REF) | payer OTHER, SELFPAY ==
--- OUTSIDE RECORDS SUMMARY | 2024-08-20 11:07 | XMS_ITS | Encounter Summary ---
Author Organization [employer] Address 75 [facility] 7t [place] [address] Care Team Providers Care Vp Talent Management Name Role Phone Carmen Mejia [facility] Primary Care Provider [phone] Encounter Details Date Type Department Care Team (Late st Contact Info) Description 03/07/2023 Orders Only [facility] MED & PEDS [address] [place], [place] [phone] Shannon Sargent LPN Social History Tobacco Use [...] Description 09/25/2024 11:00 AM EDT Office Visit [facility] MEDICINE [address] [place] [address] 10/31/2024 10:15 AM EDT Office Visit [facility] [address] [place] [address] Carmen Mejia [facility] 230 [place] [address] documented as of this encounter Visit Diagnoses Not on filedocumented in this encounter Additional Health Concerns Assessment Noted Time PHQ-9 Depression Total Score: 0 01/14/20 23 9:12 AM EDT documented as of this encounter Care Teams Vp Talent Management Relationship Specialty Start Date End Date Carmen Mejia FNP [address] [place] [address] PCP - General Family Medicine 03/18/21 documented as of this encounter
--- OUTSIDE RECORDS SUMMARY | 2024-08-20 11:08 | XMS_ITS | Encounter Summary ---
Author Organization [employer] Address 75 [facility] 7t [place] [address] Care Team Providers Care Youth Worker Name Role Phone Roberto [facility] Primary Care Provider [phone] Reason for Visit * Reason Comments Med Refill Encounter Details Date Type Department Care Team (Late st Contact Info) Description 01/03/2024 Refill [facility] MED & PEDS [address] [place], [place] [phone] [facility] [address] [place] [address] Nontraumatic incomplete tear of rotator cuff, unspecified [...] Description 09/25/2024 11:00 AM EDT Office Visit [facility] [address] [place] [address] 10/31/2024 10:15 AM EDT Office Visit [address] [address] Carmen Mejia FNP [address] [place] [address] documented as of this encounter Visit Diagnoses Diagnosis Nontraumatic incomplete tear of rotator cuff, unspecified laterality documented in this encounter Additional Health Concerns Assessment Noted Time PHQ-9 Depression Total Score: 0 11/09/19 24 9:34 AM EDT documented as of this encounter Care Teams Youth Worker Relationship Specialty Start Date End Date Carmen Mejia FNP [address] [place] [address] PCP - General Family Medicine 03/18/21 documented as of this encounter
--- OUTSIDE RECORDS SUMMARY | 2024-08-20 11:08 | XMS_ITS | Encounter Summary ---
Author Organization [employer] Address 75 [facility] 7t [place] [address] Care Team Providers Care Purification Operator Name Role Phone Carmen Mejia [facility] Primary Care Provider Reason for Visit * Reason Comments Med Refill Encounter Details Date Type Department Care Team (Late st Contact Info) Description 10/12/2023 Refill [facility] MEDICINE 230 [place], [place] [phone] Carmen Mejia [facility] 230 [place] [address] Primary insomnia Social History Tobacco Use Types [...] 09/25/2024 11:00 AM EDT Office Visit [facility] MED[facility]INE [address] [place] [address] 10/31/2024 10:15 AM EDT Office Visit [address] [address] Carmen Mejia FNP 230 [place] [address] documented as of this encounter Visit Diagnoses Diagnosis Primary insomnia Persistent disorder of initiating or maintaining sleep documented in this encounter Additional Health Concerns Assessment Noted Time PHQ-9 Depression Total Score: 24 023 9:04 AM EDT documented as of this encounter Care Teams Purification Operator Relationship Specialty Start Date End Date Carmen Mejia FNP [address] [place] [address] PCP - General Family Medicine 03/18/21 documented as of this encounter
--- OUTSIDE RECORDS SUMMARY | 2024-08-20 11:08 | XMS_ITS | Encounter Summary ---
Author Organization [employer] Address 75 [facility] 7t [place] [address] Care Team Providers Care Photocomposing Machine Operator Name Role Phone Carmen Mejia [facility] Primary Care Provider [phone] Reason for Visit * Reason Comments Med Refill Encounter Details Date Type Department Care Team (Late st Contact Info) Description 08/12/2024 Refill [facility] MEDICINE 230 [place], [place] [phone] Carmen Mejia [facility] 230 [place] [address] Moderate persistent asthma without complication Social History [...] 09/25/2024 11:00 AM EDT Office Visit [facility] MEDICINE [address] [place] [address] 10/31/2024 10:15 AM EDT Office Visit [facility] MEDICINE [address] [place] [address] Carmen Mejia FNP 230 [place] [address] documented as of this encounter Visit Diagnoses Diagnosis Moderate persistent asthma without complication documented in this encounter Additional Health Concerns Assessment Noted Time PHQ-9 Depression Total Score: 0 02/10/20 24 9:01 AM EDT documented as of this encounter Care Teams Photocomposing Machine Operator Relationship Specialty Start Date End Date Carmen Mejia FNP [address] [place] [address] PCP - General Family Medicine 03/18/21 documented as of this encounter
--- OUTSIDE RECORDS SUMMARY | 2024-08-20 11:08 | XMS_ITS | Encounter Summary ---
Author Organization [facility] Address [address] [place] [address] 7t [place] [address] Care Team Providers Care Sweep Molder Name Role Phone Carmen Mejia [facility] Primary Care Provider Reason for Visit * Reason Comments Med Refill Encounter Details Date Type Department Care Team (Late st Contact Info) Description 11/18/2022 Refill [facility] MEDICINE 230 [place], [place] [phone] [facility] 230 [place] [address] Primary insomnia; Type 2 diabetes mellitus with other specified complication, without long-term current use of insulin ([facility]) Social History Tobacco Use Types Packs/Day Years [...] Description 09/25/2024 11:00 AM EDT Office Visit [facility] MEDICINE [address] [place] [address] [phone] 10/31/2024 10:15 AM EDT Office Visit [facility] MEDICINE [address] [place] [address] BloomingtonCarmen martinez FNP 230 [place] [address] documented as of this encounter Visit Diagnoses Diagnosis Primary insomnia Persistent disorder of initiating or maintaining sleep Type 2 diabetes mellitus with other specified complication, without long-term current use of insulin ([facility]) documented in this encounter Additional Health Concerns Assessment Noted Time PHQ-9 Depression Total Score: 0 10/15/19 23 8:58 AM EDT documented as of this encounter Care Teams Sweep Molder Relationship Specialty Start Date End Date Carmen Mejia FNP 230 [place] [address] PCP - General Family Medicine 03/18/21 documented as of this encounter
--- OUTSIDE RECORDS SUMMARY | 2024-08-20 11:08 | XMS_ITS | Encounter Summary ---
Author Organization [employer] Address 75 [facility] 7t [place] [address] Care Team Providers Care Parts Consultant Name Role Phone Carmen Mejia [facility] Primary Care Provider [phone] Reason for Visit * Reason Comments Med Refill Encounter Details Date Type Department Care Team (Late st Contact Info) Description 01/08/2024 Refill [facility] MED[facility]INE 230 [place], [place] [phone] Carmen Mejia [facility] 230 [place] [address] Moderate persistent asthma without complication Social History [...] EDT Office Visit [facility] MEDICINE [address] [place] [address] 10/31/2024 10:15 AM EDT Office Visit [facility] [address] [place] [address] Carmen Mejia FNP 230 [place] [address] documented as of this encounter Visit Diagnoses Diagnosis Moderate persistent asthma without complication documented in this encounter Additional Health Concerns Assessment Noted Time PHQ-9 Depression Total Score: 0 11/09/19 24 9:34 AM EDT documented as of this encounter Care Teams Parts Consultant Relationship Specialty Start Date End Date Carmen Mejia FNP [address] [place] [address] PCP - General Family Medicine 03/18/21 documented as of this encounter
--- OUTSIDE RECORDS SUMMARY | 2024-08-20 11:08 | XMS_ITS | Encounter Summary ---
Author Organization [employer] Address 75 [facility] 7t [place] [address] Care Team Providers Care Overlock Waistline Joiner Name Role Phone Roberto [facility] Primary Care Provider Reason for Visit * Reason Comments Med Refill Encounter Details Date Type Department Care Team (Late st Contact Info) Description 01/02/2024 Refill [facility] MED & PEDS [address] [place], [place] [phone] Roberto [facility] [address] [place] [address] Nontraumatic incomplete tear of rotator cuff, unspecified [...] Description 09/25/2024 11:00 AM EDT Office Visit [facility] MEDICINE [address] [place] [address] 10/31/2024 10:15 AM EDT Office Visit [address] [address] Carmen Mejia FNP [address] [place] [address] documented as of this encounter Visit Diagnoses Diagnosis Nontraumatic incomplete tear of rotator cuff, unspecified laterality documented in this encounter Additional Health Concerns Assessment Noted Time PHQ-9 Depression Total Score: 0 11/09/19 24 9:34 AM EDT documented as of this encounter Care Teams Overlock Waistline Joiner Relationship Specialty Start Date End Date Carmen Mejia FNP [address] [place] [address] PCP - General Family Medicine 03/18/21 documented as of this encounter
--- OUTSIDE RECORDS SUMMARY | 2024-08-20 11:08 | XMS_ITS | Encounter Summary ---
Author Organization [employer] Address 75 [facility] 7t [place] [address] Care Team Providers Care Commercial Credit Lead Name Role Phone Carmen Mejia [facility] Primary Care Provider Encounter Details Date Type Department Care Team (Late Contact Info) Description 10/15/2022 Orders Only [facility] CHC MED & PEDS [address] [place], [place] [phone] Ritika Mcgovern LPN Social History Tobacco Use [...] 11:00 AM EDT Office Visit [facility] MEDICINE [address] [place] [address] [phone] 10/31/2024 10:15 AM EDT Office Visit [facility] MEDICINE 230 [place] [address] TahuyaCarmen [facility] 230 [place] [address] documented as of this encounter Visit Diagnoses Not on filedocumented in this encounter Additional Health Concerns Assessment Noted Time PHQ-9 Depression Total Score: 0 10/15/19 23 8:58 AM EDT documented as of this encounter Care Teams Commercial Credit Lead Relationship Specialty Start Date End Date Carmen Mejia FNP [address] [place] [address] PCP - General Family Medicine 03/18/21 documented as of this encounter
--- OUTSIDE RECORDS SUMMARY | 2024-08-20 11:08 | XMS_ITS | Encounter Summary ---
Author Organization [employer] Address 75 [facility] 7t [place] [address] Care Team Providers Care Ingot Supervisor Name Role Phone Carmen Mejia INDEPENDENT DRIVER Primary Care Provider [phone] Reason for Visit * Reason Onset Date Comments denture appt PA 11/02/2022 Encounter Details Date Type Department Care Team ([facility] st Contact Info) Description 11/02/[address] [facility] ADULT DENTAL 230 [place] [address] Bal Aponte, DMD 230 [place] [address] denture appt PA Social History Tobacco Use [...] - 11/02/2022 11:09 AM EDT Rep from [facility] called in checking in on [...] Description 09/25/2024 11:00 AM EDT Office Visit [address] [address] 10/31/2024 10:15 AM EDT Office Visit [address] [address] Carmen Mejia FNP [address] [place] [address] documented as of this encounter Visit Diagnoses Not on filedocumented in this encounter Additional Health Concerns Assessment Noted Time PHQ-9 Depression Total Score: 0 10/15/19 23 8:58 AM EDT documented as of this encounter Care Teams Ingot Supervisor Relationship Specialty Start Date End Date Carmen Mejia FNP [address] [place] [address] PCP - General Family Medicine 03/18/21 documented as of this encounter
--- OUTSIDE RECORDS SUMMARY | 2024-08-20 11:08 | XMS_ITS | Encounter Summary ---
Author Organization [employer] [facility] Address [address] [place] [address] 7[place] [address] Care Team Providers Care Supervisor Production Department Name Role Phone Carmen Mejia Primary Care Provider [phone] Encounter Details Date Type Department Care Team (Late st Contact Info) Description 07/08/2022 Orders Only [facility] MEDICINE [address] [place] [address] Shannon Sargent LPN Social History Tobacco Use [...] Description 09/25/2024 11:00 AM EDT Office Visit [facility] [address] [place] [address] 10/31/2024 10:15 AM EDT Office Visit [address] [address] Carmen Mejia FNP [address] [place] [address] documented as of this encounter Visit Diagnoses Not on filedocumented in this encounter Care Teams Supervisor Production Department Relationship Specialty Start Date End Date Carmen Mejia FNP [address] [place] [address] PCP - General Family Medicine 03/18/21 documented as of this encounter
--- OUTSIDE RECORDS SUMMARY | 2024-08-20 11:08 | XMS_ITS | Encounter Summary ---
Author Organization [employer] Address 75 [facility] 7t [place] [address] Care Team Providers Care Resistor Inspector Name Role Phone Carmen Mejia [facility] Primary Care Provider [phone] Reason for Visit * Reason Comments Pre-visit Planning (Unable to reach for PVP screening, LVM) Encounter Details Date Type Department Care Team ([facility] st Contact Info) Description 07/23/2024 Patient Outreach [facility] MEDICINE 230 [place] [address] [facility] 230 [place] [address] Pre-visit Planning ((Unable to reach for PVP [...] 09/25/2024 11:00 AM EDT Office Visit [facility] MEDICINE [address] [place] [address] 10/31/2024 10:15 AM EDT Office Visit [facility] MED[facility] [address] [place] [address] Carmen Mejia FNP 230 [place] [address] documented as of this encounter Visit Diagnoses Not on filedocumented in this encounter Additional Health Concerns Assessment Noted Time PHQ-9 Depression Total Score: 0 02/10/20 24 9:01 AM EDT documented as of this encounter Care Teams Resistor Inspector Relationship Specialty Start Date End Date Carmen Mejia FNP [address] [place] [address] PCP - General Family Medicine 03/18/21 documented as of this encounter
--- OUTSIDE RECORDS SUMMARY | 2024-08-20 11:08 | XMS_ITS | Encounter Summary ---
Author Organization [employer] Address 75 [facility] 7t [place] [address] Care Team Providers Care Roll Skinner Name Role Phone Roberto [facility] Primary Care Provider [phone] Reason for Visit * Reason Comments Med Refill Encounter Details Date Type Department Care Team (Late st Contact Info) Description 07/30/2024 Refill [facility] CH[facility] MED & PEDS [address] [place], [place] [phone] [facility] [address] [place] [address] Moderate persistent asthma without complication; Nontraumatic incomplete [...] AM EDT Office Visit [facility] MEDICINE [address] [place] [address] 10/31/2024 10:15 AM EDT Office Visit [address] [address] Carmen Mejia FNP [address] [place] [address] documented as of this encounter Visit Diagnoses Diagnosis Moderate persistent asthma without complication Nontraumatic incomplete tear of rotator cuff, unspecified laterality documented in this encounter Additional Health Concerns Assessment Noted Time PHQ-9 Depression Total Score: 0 02/10/20 24 9:01 AM EDT documented as of this encounter Care Teams Roll Skinner Relationship Specialty Start Date End Date Carmen Mejia FNP [address] [place] [address] PCP - General Family Medicine 03/18/21 documented as of this encounter
--- OUTSIDE RECORDS SUMMARY | 2024-08-20 11:08 | XMS_ITS | Encounter Summary ---
Author Organization [employer] Address [address] [place] [address] 7t [place] [address] Care Team Providers Care Field Radio Operator Name Role Phone Carmen Mejia BARTENDER HELPER Primary Care Provider [phone] Encounter Details Date Type Department Care Team (Late st Contact Info) Description 06/11/2022 Orders Only [facility] [address] [place] [address] Ritika Mcgovern LPN Social History Tobacco Use [...] Description 09/25/2024 11:00 AM EDT Office Visit [facility] [address] [place] [address] 10/31/2024 10:15 AM EDT Office Visit [facility] [address] [place] [address] Carmen Mejia FNP 230 [place] [address] documented as of this encounter Visit Diagnoses Not on filedocumented in this encounter Care Teams Field Radio Operator Relationship Specialty Start Date End Date Carmen Mejia FNP [address] [place] [address] PCP - General Family Medicine 03/18/21 documented as of this encounter
--- OUTSIDE RECORDS SUMMARY | 2024-08-20 11:08 | XMS_ITS | Encounter Summary ---
Author Organization [employer] Address 75 [facility] 7t [place] [address] Care Team Providers Care Cad Designer Drafter Name Role Phone Carmen Mejia Primary Care Provider [phone] Encounter Details Date Type Department Care Team (Late st Contact Info) Description 07/07/2022 Orders Only [facility] MED & PEDS [address] [place] [address] Ritika Mcgovern LPN Social History Tobacco Use [...] Description 09/25/2024 11:00 AM EDT Office Visit [facility] MED[facility] [address] [place] [address] 10/31/2024 10:15 AM EDT Office Visit [facility] [address] [place] [address] Carmen Mejia FNP 230 [place] [address] documented as of this encounter Visit Diagnoses Not on filedocumented in this encounter Care Teams Cad Designer Drafter Relationship Specialty Start Date End Date Carmen Mejia FNP 230 [place] [address] PCP - General Family Medicine 03/18/21 documented as of this encounter
--- OUTSIDE RECORDS SUMMARY | 2024-08-20 11:08 | XMS_ITS | Encounter Summary ---
Author Organization [employer] Address 75 [facility] 7t [place] [address] Care Team Providers Care Marketing Writer Name Role Phone Carmen Mejia COMMERCIAL REPORTER Primary Care Provider [phone] Encounter Details Date Type Department Care Team [...] Description 09/25/2024 11:00 AM EDT Office Visit [facility] MEDICINE 230 [place] [address] 10/31/2024 10:15 AM EDT Office Visit [facility] [address] [place] [address] Carmen Mejia FNP 230 [place] [address] documented as of this encounter Visit Diagnoses Not on filedocumented in this encounter Additional Health Concerns Assessment Noted Time PHQ-9 Depression Total Score: 0 02/10/20 24 9:01 AM EDT documented as of this encounter Care Teams Marketing Writer Relationship Specialty Start Date End Date Carmen Mejia FNP [address] [place] [address] PCP - General Family Medicine 03/18/21 documented as of this encounter
--- OUTSIDE RECORDS SUMMARY | 2024-08-20 11:08 | XMS_ITS | Encounter Summary ---
Author Organization [employer] Address [address] [place] [address] 7t [place] [address] Care Team Providers Care Terminal Operator Name Role Phone Roberto Carmen RECORDS MANAGEMENT CLERK Primary Care Provider [phone] Reason for Visit * Reason Comments Med Refill Encounter Details Date Type Department Care Team (Late st Contact Info) Description 11/16/2022 Refill [facility] [address] [place], [place] [phone] Melani Haider FNP [address] [place], [place] [phone] Other chronic pain Social History Tobacco Use [...] Description 09/25/2024 11:00 AM EDT Office Visit [facility] [address] [place] [address] [phone] 10/31/2024 10:15 AM EDT Office Visit [facility] [address] [place] [address] [phone] Carmen Mejia FNP [address] [place] [address] documented as of this encounter Visit Diagnoses Diagnosis Other chronic pain documented in this encounter Additional Health Concerns Assessment Noted Time PHQ-9 Depression Total Score: 0 10/15/19 23 8:58 AM EDT documented as of this encounter Care Teams Terminal Operator Relationship Specialty Start Date End Date Carmen Mejia FNP [address] [place] [address] [place] [address] PCP - General Family Medicine 03/18/21 documented as of this encounter
--- OUTSIDE RECORDS SUMMARY | 2024-08-20 11:08 | XMS_ITS | Clinical Summary ---
Author Organization [employer] Address [address] [facility] 7t [place] [address] Care Team Providers Care Student Ambassador Name Role Phone Carmen Mejia [facility] Primary Care Provider [phone] Allergies Active Allergy Reactions Criticality Noted Date [...] 1 TABLET BY MOUTH EVERY MORNING (CALL [phone] FOR APPOINTMENT (Dr. Pillai)) 023 Active carvedilol (Coreg) 25 MG tablet TAKE 1 TABLET BY MOUTH TWICE DAILY IN THE MORNING AND IN THE EVENING WITH FOOD 023 Active atorvastatin (Lipitor) 40 MG tablet Take 40 mg by mouth at bedtime. 023 Active Aspirin Low Dose 81 MG EC tablet TAKE 1 TABLET BY MOUTH EVERY MORNING (CALL [phone] FOR APPOINTMENT (Dr. Pillai )) 023 Active [...] candidate) Tier III (Q6 month visits) Last COUNTER MAKER Agreement: 11/17/23 Assessment & Plan (07/24/2024 3:07 PM EST): Timeline: - 11/17/23: COUNTER MAKER Agreement, Utox/pill count as expected - 12/13/23: NCNS to Group visit - 12/27/23: Initial Group Visit, Utox/pill count as expected - 01/31/24: Group visit, Utox/pill count as expected - 03/13/24: Group visit, Utox/pill count as expected - 05/15/24: Group visit, Utox/pill count as expected - 07/17/24: Group visit, Utox/pill count as expected Assessment & Plan (05/15/2024 6:31 PM EST): Timeline: - 11/17/23: COUNTER MAKER Agreement, Utox/pill count as expected - 12/13/23: [...] Overview (07/20/2022): ?? Followed by cardiology at [facility]. ?? Hx of reduced ejection fraction that [...] managing pain with Tylenol #4. Compliant with COUNTER MAKER agreement ?? Followed by [facility] pain mnmt. Assessment & Plan (07/24/2024 3:07 [...] Healthcare maintenance 07/20/2022 Overview (04/28/2023): CRC: 2016 [facility] 10 year f/u PSA: 07/2022 0.57 HIV: Negative 2019 Hepatitis: Negative HCV 2019 Declines covid vaccine Assessment & Plan (01/13/2023 10:32 AM EDT): - Will request [facility] colonoscopy records Carpal tunnel syndrome on both sides 07/20/2022 Overview (07/20/2022): ?? EMG 12/2021-bilateral moderate-severe ulnar and median neuropathy and bilateral anahy guber anastamosis ?? Seen by [facility] Dr. Nixon 04/2022; surgical candidate would require [...] hypertension 07/14/2017 Overview (10/15/2022): ?? Followed by [facility] cardiology ?? Hydralazine 50mg b.i.d ?? Carvediol [...] dysfunction 12/04/2015 Overview (07/20/2022): ?? Followed by [facility] urology and receives SQ testosterone Hypogonadism male 12/04/2015 Mixed hyperlipidemia 12/04/2015 Overview (10/15/2022): ?? Atorvastatin 40mg daily Assessment & Plan (10/15/2022 3:42 PM EDT): ?? Continue current regimen Old [place] (myocardial infarction) 12/04/2015 Encounters Date Type Department Care Team Description 08/20/2024 Refill [facility] [address] [place], [place] [phone] Carmen Mejia FNP Diabetes mellitus type 2 with neurological manifestations ([facility]/HCC) 08/12/2024 Refill [facility] [address] [place], [place] [phone] Carmen Mejia FNP Moderate persistent asthma without complication 08/03/2024 9:15 AM EST Office Visit [facility] [address] [place] [address] Ulysses Carmen [facility] 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) (Primary Dx); Cardiomyopathy, unspecified type (CMS/HCC); Dysphagia, unspecified type; Dietary counseling; Exercise counseling; Class 1 obesity due to excess calories with serious comorbidity and body mass index (BMI) of 33.0 to 33.9 in adult 08/03/2024 Travel 07/30/2024 Refill [facility] [address] [place] [address] Ulysses Carmen [facility] Moderate persistent asthma without complication; Nontraumatic incomplete tear of rotator cuff, unspecified laterality 07/23/2024 Patient Outreach [facility] [address] [place] [address] RobertoCarmen CHIN STRAP CUTTER Pre-visit Planning ((Unable to reach for PVP screening, LVM)) 07/17/2024 11:00 AM EST Office Visit [facility] [address] [place] [address] Melani Haider FNP Traumatic incomplete tear of left rotator cuff, subsequent encounter (Primary Dx); Long-term current use of opiate analgesic 07/17/2024 Travel 06/29/2024 Telephone [facility] [address] [place] [address] Ulysses Carmen [facility] Med Refill 06/28/2024 Refill [facility] [address] [place] [address] Ulysses Carmen [facility] Primary insomnia 06/28/2024 Refill [facility] [address] [place] [address] Ulysses Carmen [facility] Nontraumatic incomplete tear of rotator cuff, unspecified laterality 06/19/2024 Refill [facility] [address] [place] [address] Roberto Carmen [facility] Chronic obstructive pulmonary disease, unspecified COPD type (CMS/HCC) 06/14/2024 Refill [facility] [address] [place] [address] UlyssesCarmen CHIN STRAP CUTTER Diabetes mellitus type 2 with neurological manifestations (CMS/[facility]) 05/25/2024 Refill [facility] [address] [place] [address] Ulysses [place], [facility] Nontraumatic incomplete tear of rotator cuff, unspecified laterality 05/23/2024 Refill [facility] [address] [facility] [place] [address] Ulysses [place], [facility] Type 2 diabetes mellitus with other specified complication, without long-term current use of insulin ([facility]) from Last 3 Months Immunizations Name Administration [...] Description 09/25/2024 11:00 AM EDT Office Visit [facility] [address] [place] [address] 10/31/2024 10:15 AM EDT Office Visit [facility] [address] [place] [address] Ulysses Carmen, [facility] [address] [place] [address] Health Maintenance Due Date Last Done Comments [...] tear of left rotator cuff, subsequent encounter ALBUMIN, RANDOM URINE W/CREATININE Routine 08/31/2023 8:39 [...] POCT HGB A1C (08/03/2024 9:13 AM EST) Pathologist [facility] Hemoglobin A1C 8.1(A) 4.0 - 6.0 % Blood 08/03/2024 9:13 AM EST [facility] POINT OF CARE TEST ENTER/EDIT ORDERABLES Final Result * POCT Glucose (08/03/2024 9:13 AM EST) Pathologist [facility] Glucose Blood, POC 167 60 - 200 mg/dL Blood Capillary blood specimen / Unknown 08/03/2024 9:13 AM EST [facility] POINT OF CARE TEST ENTER/EDIT ORDERABLES Final Result * POCT KINA-14 Urine Drug Screen (07/17/2024 2:07 PM EST) [facility] Opiate Screen, Urine Positive Urine Urine specimen obtained by clean catch procedure / Unknown 07/17/2024 2:07 PM EST Michelle Peters RN - 07/17/2024 2:07 PM EST UTOX cup Lot#[id number] Exp. 03/14/26 Internal Pass Control Melani Haider [facility] POINT OF CARE TEST ENTER/EDIT ORDERABLES Final Result * (ABNORMAL) Albumin, Random Urine W/Creatinine (08/31/2023 8:39 AM EDT) [facility] Creatinine, Urine 97.43 mg/dL [facility] Microalbumin Urine 122.0 mg/L [facility] Microalbum Creatinine Ratio Ur 125.2(H) <30 ug/mg cr [facility] Comment:Albumin/Creatinine R at Reference Ranges: Normal: < 30 ug/mg creatinine Microalbuminuria: 30 - 300 ug/mg creatinineClinical Albuminuria: > 300 ug/mg creatinine 08/31/2023 8:39 AM EDT 08/31/2023 11:26 AM EDT [facility] LAB URINE ORDERABLES Final Re sult Performing Organization Address [facility] Co de Phone Number [facility] [address] [place] [phone] * Lipid Panel, Standard (07/20/2023 9:32 AM EST) Triglycerides 71 <150 mg/dL [facility] Comment:Desirable Triglyceri de: less than 150 mg/dLBorderline High Triglyceride 150-199 mg/dLHigh Triglyceride: 200-499 mg/dLVery High Triglyceride: greater than or equal to 5OO mg/dL Cholesterol 127 <200 mg/dL [facility] Comment:Desirable Cholestero l: less than 200 mg/dLBorderline High Cholesterol: 200-239 mg/dLHigh Cholesterol: greater than 239 mg/dL LDL Cholesterol Calculated 64 <100 mg/dL [facility] Comment:Desirable LDL: less than 100 mg/dLNear Optimal/Above Optimal LDL: 110- 129 mg/dLBorderline High LDL: 130-159 mg/dLHigh LDL: 160-189 mg/dLVery High LDL: greater than or equal to 190 mg/dL HDL Cholesterol 49 >40 mg/dL [facility] Comment:Desirable HDL: great er than 40 mg/dL Note: This HDL assay may give artificially low results in patients with liver disease. Blood Venous blood specimen / Unknown 07/20/2023 9:32 AM EST 07/20/2023 11:47 AM EST [facility] LAB BLOOD ORDERABLES Final Re sult Performing Organization Address [facility]/ZIP Co de Phone Number [facility] [address] [place] [address] [phone] * HEPATITIS C AB W/REFL TO HCV RNA, QN, PCR (02/27/2020 9:28 AM EDT) HEPATITIS C ANTIBODY NON-REACT LAYNE NON-REACT LAYNE [facility] INDEX 0.02 <1.00 [facility] Comment: ?? HCV antibody was non-reactive. There is no laboratory ?? evidence of HCV infection. ?? In most cases, no further action is required. However, if recent HCV exposure is suspected, a test for HCV RNA (test code 29472) is suggested. ?? For additional information please refer to http://Betyah.[employer]/faq/KTQ84f9 (This link is being provided for informational/ educational purposes only.) ?? 02/27/2020 9:28 AM EDT us Daezel Lacdevilale CHIN STRAP CUTTER HISTORICAL/NON ORDERABLE LA BS Final Result Performing Organization Address [facility] de Phone Number [facility] [address] [place] [address], * HIV 1/2 ANTIGEN/ANTIBODY,FOURTH GENERATION W/RFL (02/27/2020 9:28 AM EDT) HIV-1/2 ANTIGEN AND ANTIBODIES, 4TH GENERATION W/ REFLEX NON-REACT LAYNE NON-REACT LAYNE [facility] Comment: HIV-1 antigen and HIV-1/HIV-2 [...] ? For additional information please refer to http://education.[employer]/faq/XVM298 (This link is being provided for informational/ educational purposes only.) ? The performance of this assay has not been clinically validated in patients less than 2 years old. ?? 02/27/2020 9:28 AM EDT Daezel Lacanlale CHIN STRAP CUTTER LAB BLOOD ORDERABLES Final Result Performing Organization Address [facility] Co de Phone Number [facility] [address] [place] [address], * (ABNORMAL) Colonoscopy (06/20/2015) Colonoscopy Abnormal( A) Normal Comment:polyps-5 year follow up Historical Provider MD HEALTH MAINTENANCE Final Result from Last 3 Months or Most Recently Relevant to Health Maintenance [place] [address] [place] [address] - [facility] Care Teams Student Ambassador Relationship Specialty Start Date End Date RobertoCarmen martinez FNP [address] [place] [address] PCP - General Family Medicine 03/18/21
--- OUTSIDE RECORDS SUMMARY | 2024-08-20 11:09 | XMS_ITS | Encounter Summary ---
Author Organization [employer] Address [address] [facility] 7t [place] [address] Care Team Providers Care Communication Studies Professor Name Role Phone Carmen Mejia [facility] Primary Care Provider [phone] Reason for Visit * Reason Onset Date Comments Med Refill 08/20/2024 Encounter Details Date Type Department Care Team (Late st Contact Info) Description 08/20/2024 Refill [facility] [address] [place], [place] [phone] [facility] [address] [place] [address] 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) Social History Tobacco Use Types Packs/Day Years [...] Description 09/25/2024 11:00 AM EDT Office Visit [facility] [address] [place] [address] 10/31/2024 10:15 AM EDT Office Visit [address] [address] Carmen Mejia [address] [address] documented as of this encounter Visit Diagnoses Diagnosis 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) documented in this encounter Additional Health Concerns Assessment Noted Time PHQ-9 Depression Total Score: 0 02/10/20 24 9:01 AM EDT documented as of this encounter Care Teams Communication Studies Professor Relationship Specialty Start Date End Date Carmen Mejia FNP [address] [place] [address] PCP - General Family Medicine 03/18/21 documented as of this encounter
--- OUTSIDE RECORDS SUMMARY | 2024-08-20 11:09 | XMS_ITS | Encounter Summary ---
Author Organization [employer] Address [address] [facility] 7t [place] [address] Care Team Providers Care Crawler Crane Operator Name Role Phone Carmen Mejia PROFESSOR OF RADIOLOGY Primary Care Provider [phone] Encounter Details Date Type Department Care Team (Late st Contact Info) Description 05/05/2023 Abstract [facility] [address] [place] [address] Dia Gibson Social History Tobacco Use Types [...] Description 09/25/2024 11:00 AM EDT Office Visit [facility] [address] [place] [address] 10/31/2024 10:15 AM EDT Office Visit [facility] [address] [place] [address] Carmen Mejia FNP [address] [place] [address] documented as of this encounter Visit Diagnoses Not on filedocumented in this encounter Additional Health Concerns Assessment Noted Time PHQ-9 Depression Total Score: 24 023 9:04 AM EDT documented as of this encounter Care Teams Crawler Crane Operator Relationship Specialty Start Date End Date Carmen Mejia FNP [address] [place] [address] PCP - General Family Medicine 03/18/21 documented as of this encounter
--- OUTSIDE RECORDS SUMMARY | 2024-08-20 11:09 | XMS_ITS | Encounter Summary ---
Author Organization [facility] [facility] Address [address] [place] [address] Care Team Providers Care Fur Blowing Machine Attendant Name Role Phone Carmen Mejia Primary Care Provider Reason for Referral * Consultation (Routine) - Authorized Specialty Diagnoses / Procedures Referred By Jazmyne ramirez Referred To Contact Gastroenterology Diagnoses Dysphagia, unspecified type Carmen Mejia FNP [address] [place] [address] Phone: tel: fax: [facility] [address] [place] [address] Phone: tel: fax: Referral ID Status Reason Start Date Expiration Date Visits Requested Visits Authorized [id number] Authorized Specialty Services Required 08/07/2024 08/07/2025 1 1 * Imaging (Routine) - Authorized Specialty Diagnoses / Procedures Referred By Jazmyne ramirez Referred To Contact Cardiology Diagnoses Cardiomyopathy, unspecified type (CMS/HCC) Procedures Transthoracic Echo (TTE) Complete Carmen Mejia FNP [address] [place] [address] Phone: tel: fax: [address] Phone: tel: fax: Referral ID Status Reason Start Date Expiration Date Visits Requested Visits Authorized [id number] Authorized Perform Procedure 08/03/2024 08/03/2025 1 1 Reason for Visit * Reason Comments Follow-up Diabetes Encounter Details Date Type Department Care Team (Latest Contact Info) Description 08/03/2024 9:15 AM EST Office Visit [facility] [address] [place], [place] [phone] HamptonCarmen, [facility] [address] [facility] [address] Diabetes mellitus type 2 with neurological manifestations [...] documented in this encounter Progress Notes * [facility], [facility] - 08/03/2024 9:15 AM EST SUBJECTIVE: Andry Lehman is a 59 y.o. year old male T2DM, cardiomyopathy with ICD in place, hx of [place], HTN and CAD who presents for diabetes follow up Acute Concerns: GI-persistent dyspepsia, dysphagia. He was seen by [facility] in 2022 with similar symptoms and a negative barium swallow study. Symptoms improved with diet changes. Interim Updates: Increased stress at home contributing to some dietary indiscretion and change in prior exercise routine. He endorses some increase in fatigue and frustration with weight gain (4lb/6mo) No new shortness of breath, orthopnea, or edema. Follows with Dr. Pillai [facility]. Remote ICD check Q 3 months. [...] hyperlipidemia Moderate nonproliferative diabetic retinopathy (CMS/HCC) Old [place] (myocardial infarction) Partial thickness rotator cuff tear [...] Description 09/25/2024 11:00 AM EDT Office Visit [facility] [address] [place] [address] 10/31/2024 10:15 AM EDT Office Visit [facility] [address] [place] [address] [place] [address] [facility] [address] [place] [address] Scheduled Orders Name Type Priority Associated Diagnoses [...] specimen / Unknown 08/03/2024 9:13 AM EST [facility] POINT OF CARE TEST ENTER/EDIT ORDERABLES Final Result * (ABNORMAL) POCT HGB A1C (08/03/2024 9:13 AM EST) Hemoglobin A1C 8.1(A) 4.0 - 6.0 % Blood 08/03/2024 9:13 AM EST [facility] POINT OF CARE TEST ENTER/EDIT ORDERABLES [...] documented as of this encounter Care Teams Fur Blowing Machine Attendant Relationship Specialty Start Date End Date [facility] [address] [place] [address] PCP - General Family Medicine 03/18/21 documented as of this encounter
== END 2024-08-20 09:53 | disposition home or self-care (01) ==
LOC: HO.BBR 09:52
PROVIDERS: PCP Registered Nurse; Visit Provider Urology
DX: R71.8 Other abnormality of red blood cells (principal)
CPT/HCPCS: 85014

== ENCOUNTER → 2024-08-28 23:59 | Outpatient (BNV) | payer OTHER, SELFPAY ==
--- NOTE | 2024-08-29 15:09 | MHC.OFFVIS ---
Intake Visit Reasons: Remote HF moniitoring- [employer] Allergies avocado [AVOCADO] Allergy (Severe, Verified 08/14/24 10:25) HIVES/SOB lisinopril Allergy (Severe, Verified 08/14/24 10:25) Unknown passion fruit [PASSION FRUIT] Allergy (Severe, Verified 08/14/24 10:25) HIVES/SOB sacubitril [Entresto] Allergy (Severe, Verified 08/14/24 10:25) Unknown valsartan [Entresto] Allergy (Severe, Verified 08/14/24 10:25) Unknown soy [SOY] Allergy (Unknown, Verified 08/14/24 10:25) SWELLING acetaminophen [From Percocet] Adverse Reaction (Verified 08/14/24 10:25) Gastrointestinal Upset oxycodone [From Percocet] Adverse Reaction (Verified 08/14/24 10:25) Gastrointestinal Upset PFSH Medical History HFrEF (heart failure with reduced ejection fraction) ICD (implantable cardioverter-defibrillator) in place Nonischemic cardiomyopathy HTN (hypertension) Diabetes mellitus CAD (coronary artery disease) Surgical History History of carpal tunnel surgery H/O colonoscopy History of cardiac cath (~2017) Family History Father No problems noted. Mother No problems noted. Social History Household Members: Spouse Alcohol intake: former Patient Tobacco Use Status: Former Tobacco user Second Hand Smoke Exposure: No Office Procedures Cardiac Device Check Cardiac Device Check Details: Remote heart failure report generated 08/28/2024. Heart failure parameters are stable [id number] Cardiac Device Interrogation, cardio physiologic monitor Procedure code (CPT) selection complete Assessment & Plan Assessment & Plan (1) ICD (implantable cardioverter-defibrillator) in place: Comment: implanted 2017-[employer] Code(s): Z95.810 - Presence of automatic (implantable) cardiac defibrillator Category: Medical Plan: See above Coding Level of Care Code Procedure Only Diagnoses ICD (implantable cardioverter-defibrillator) in place Z95.810 CPT Codes Cardiac Device Check - Cardiac Device 15: [id number] Cardiac Device Interrogation, cardio physiologic monitor ([id number])
== END ==
PROVIDERS: PCP Registered Nurse; Visit Provider Internal Medicine Cardiovascular Disease
DX: Z45.02 Encounter for adjustment and management of automatic implantable cardiac defibrillator (principal)
CPT/HCPCS: 93297

== ENCOUNTER → 2024-09-03 09:39 | Outpatient (REF) | payer OTHER, SELFPAY ==
--- NOTE | 2024-09-03 09:42 | CA_ITS ---
Transthoracic Echocardiogram Patient (Last, First, Middle): Andry Lehman, Gender: Male Date of : 1965 Age: 59 Procedure Date: 09/03/2024 Procedure Type: Transthoracic Echocardiogram Location: OP Height: 167.64 cm Weight: 90.72 kg BSA: 2.00 m2 Heart Rate: bpm BP: 128 / 80 mmHg [facility] Specialist: BRYNN Referring MD: Ramin Pillai MD Symptoms: I42.8 - Other cardiomyopathies Study Quality: Adequate ECG Rhythm: Sinus Conclusions: - The left ventricular systolic function is low normal. The visually estimated ejection fraction is between 50-55%. - No obvious valvular pathology seen on this study. Findings Procedure Information Contrast agent, definity, is being given per protocol without apparent complications. Left Ventricle Normal left ventricular cavity size. There is normal left ventricular wall thickness. The left ventricular systolic function is low normal. The visually estimated ejection fraction is between 50-55%. There is no evidence of regional wall motion abnormalities. Diastolic function is normal for age. Right Ventricle Mildly increased right ventricular cavity size. There is normal right ventricular systolic function. There is a pacemaker wire seen in the right ventricle. Atria Both atria are normal in size. Aortic Valve There is a normal trileaflet aortic valve. There is no aortic valve stenosis. There is no aortic valve regurgitation. Mitral Valve The mitral valve appears normal. There is no mitral valve regurgitation. There is no mitral valve stenosis. Pulmonic Valve The pulmonic valve is likely normal. Tricuspid Valve There is trace tricuspid valve regurgitation. There is no evidence of pulmonary hypertension. Great Vessels The asc aorta is normal in size. Venous The inferior vena cava is normal in size and collapses less than 50% with inspiration. Pericardium/Pleural There is no evidence of pericardial effusion. Prior Study Comparison No significant change compared to prior study dated: 08/04/2023. Recommendations, Care & Conclusions No obvious valvular pathology seen on this study. Measurements 2D Linear Measurements IVSd: 0.95 0.6-0.9/0.6-1.0 cm LVIDd: 5.18 3.9-5.3/4.2-5.9 cm LVIDd Index: 2.59 2.4-3.2/2.2-3.1 cm/m2 LVIDs: 3.61 2.0-3.6 cm LVPWd: 1.08 0.7-1.1 cm Ao Root: 2.60 2.1-3.5 cm LA Diam: 3.70 2.7-3.8/3.0-4.0 cm LAIDs Index: 1.85 1.5-2.3 cm/m2 LV Mass: 245.90 67-162/88-224 g LV Mass Index: 122.95 43-95/49-115 g/m2 LVOT Diam: 2.20 3.0+(-)1.3 cm 2D Systolic Function EF 4C: 52.20 >55% EF 2C: 49.90 >55% EF BiP: 51.30 >55% Mitral Valve MV Pk E: 0.62 MV PK A: 0.90 MV Decel Time: 176.00 E/A: 0.70 E'Lateral: 8.81 E'Medial: 5.00 E/E' Med: 12.40 E/E' Lat: 7.00 PHT: 51.00 MVA PHT: 4.31 Decel Roane: 3.54 Aortic Valve AoV Pk Aleksey: 1.45 AoV Pk Grad: 8.00 LVOT LVOT Pk Aleksey: 1.08 LVOT Mn Aleksey: 0.72 LVOT VTI: 0.24 LVOT Pk Grad: 5.00 LVOT Mn Grad: 2.00 LVOT Diam: 2.20 LVOT Area: 3.80 Diastolic Function MV Pk E: 0.62 MV Pk A: 0.90 E/A: 0.70 E'Medial: 5.00 E/E' Med: 12.40 E' Laterial: 8.81 E/E' Lat: 7.00 Right Ventricle TAPSE (mm): 25.00 TVS' Aleksey: 12.00 Tricuspid Valve TR Pk Aleksey: 1.56 TR Pk Grad: 10.00 RA Press: 8.00 RVSP: 18.00 Great Vessels Aorta Ao Root-2D: 2.60 2.0-3.7 cm Pulmonary Valve PV Pk Aleksey: 1.10 Peak PV Grad: 5.00 Updated in Other Vendor System with Status of Final Alejandro Greene MD electronically signed on 09/03/2024 12:40:44 PM with status of Final
--- OUTSIDE RECORDS SUMMARY | 2024-09-03 10:34 | XMS_ITS | Encounter Summary ---
Author Organization [employer] Address [address] [facility] 7t [place] [address] Care Team Providers Care Glazier Stained Glass Name Role Phone Roberto [facility] Primary Care Provider [phone] Reason for Visit * Reason Onset Date Comments Med Refill 08/20/2024 Encounter Details Date Type Department Care Team (Late st Contact Info) Description 08/20/2024 Refill [facility] PEDS [address] [place], [place] [phone] Roberto [facility] [address] [place] [address] Diabetes mellitus type 2 with neurological manifestations [...] Description 09/25/2024 11:00 AM EDT Office Visit [facility] [address] [place] [address] 11/05/2024 9:00 AM EDT Office Visit [address] [address] Carmen Mejia [address] [address] documented as of this encounter Visit Diagnoses Diagnosis 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) documented in this encounter Additional Health Concerns Assessment Noted Time PHQ-9 Depression Total Score: 0 02/10/20 24 9:01 AM EDT documented as of this encounter Care Teams Glazier Stained Glass Relationship Specialty Start Date End Date Carmen Mejia FNP [address] [place] [phone] PCP - General Family Medicine 03/18/21 documented as of this encounter
--- OUTSIDE RECORDS SUMMARY | 2024-09-03 10:34 | XMS_ITS | Encounter Summary ---
Author Organization [employer] Address [address] [facility] 7t [place] [address] Care Team Providers Care Lace Mender Name Role Phone Carmen Mejia [facility] Primary Care Provider [phone] Reason for Visit * Reason Comments Med Refill Encounter Details Date Type Department Care Team (Late st Contact Info) Description 01/08/2024 Refill [facility] [address] [place], [place] [phone] Carmen Mejia [facility] [address] [place] [address] Moderate persistent asthma without complication Social History [...] Description 09/25/2024 11:00 AM EDT Office Visit [facility] [address] [place] [address] 11/05/2024 9:00 AM EDT Office Visit [facility] [address] [place] [address] Carmen Mejia FNP [address] [place] [address] documented as of this encounter Visit Diagnoses Diagnosis Moderate persistent asthma without complication documented in this encounter Additional Health Concerns Assessment Noted Time PHQ-9 Depression Total Score: 0 11/09/19 24 9:34 AM EDT documented as of this encounter Care Teams Lace Mender Relationship Specialty Start Date End Date Carmen Mejia FNP [address] [place] [phone] PCP - General Family Medicine 03/18/21 documented as of this encounter
--- OUTSIDE RECORDS SUMMARY | 2024-09-03 10:34 | XMS_ITS | Encounter Summary ---
Author Organization [employer] Address [address] [place] [address] 7t [place] [address] Care Team Providers Care Buckle Attaching Machine Operator Name Role Phone Carmen Mejia Primary Care Provider [phone] Encounter Details Date Type Department Care Team (Late st Contact Info) Description 07/07/2022 Orders Only [facility] MED & PEDS [address] [place] [address] Ritika Mcgovern LPN Social History Tobacco Use [...] Description 09/25/2024 11:00 AM EDT Office Visit [facility] [address] [place] [address] 11/05/2024 9:00 AM EDT Office Visit [facility] [address] [place] [address] Carmen Mejia FNP [address] [place] [address] documented as of this encounter Visit Diagnoses Not on filedocumented in this encounter Care Teams Buckle Attaching Machine Operator Relationship Specialty Start Date End Date Carmen Mejia FNP [address] [place] [address] PCP - General Family Medicine 03/18/21 documented as of this encounter
--- OUTSIDE RECORDS SUMMARY | 2024-09-03 10:34 | XMS_ITS | Encounter Summary ---
Author Organization [employer] Address [address] [facility] 7t [place] [address] Care Team Providers Care Tool Trouble Shooter Name Role Phone Roberto [facility] Primary Care Provider [phone] Reason for Visit * Reason Comments Med Refill Encounter Details Date Type Department Care Team (Late st Contact Info) Description 08/27/2024 Refill [facility] PEDS [address] [place], [place] [phone] Roberto, [facility] [address] [place] [address] Nontraumatic incomplete tear of rotator cuff, unspecified [...] 11:00 AM EDT Office Visit [facility] [address] [place] [address] 11/05/2024 9:00 AM EDT Office Visit [address] [address] Carmen Mejia FNP [address] [place] [address] documented as of this encounter Visit Diagnoses Diagnosis Nontraumatic incomplete tear of rotator cuff, unspecified laterality documented in this encounter Additional Health Concerns Assessment Noted Time PHQ-9 Depression Total Score: 0 02/10/20 24 9:01 AM EDT documented as of this encounter Care Teams Tool Trouble Shooter Relationship Specialty Start Date End Date Carmen Mejia FNP [address] [place] [address] PCP - General Family Medicine 03/18/21 documented as of this encounter
--- OUTSIDE RECORDS SUMMARY | 2024-09-03 10:34 | XMS_ITS | Encounter Summary ---
Author Organization [employer] Address [address] [place] [address] 7[address] [place] [address] Care Team Providers Care Surgical Asst Name Role Phone Carmen Mejia PROFESSOR OF MANAGEMENT Primary Care Provider [phone] Reason for Visit * Reason Onset Date Comments denture appt PA 11/02/2022 Encounter Details Date Type Department Care Team ([facility] st Contact Info) Description 11/02/2022 Telephone [facility] ADULT DENTAL [address] [place] [address] Bal Aponte, DMD [address] [place] [address] denture appt PA Social History Tobacco Use [...] - 11/02/2022 11:09 AM EDT Rep from [facility] called in checking in on the status [...] Description 09/25/2024 11:00 AM EDT Office Visit [address] [address] 11/05/2024 9:00 AM EDT Office Visit [address] [address] Carmen Mejia FNP [address] [place] [address] documented as of this encounter Visit Diagnoses Not on filedocumented in this encounter Additional Health Concerns Assessment Noted Time PHQ-9 Depression Total Score: 0 10/15/19 23 8:58 AM EDT documented as of this encounter Care Teams Surgical Asst Relationship Specialty Start Date End Date Carmen Mejia FNP [address] [place] [phone] PCP - General Family Medicine 03/18/21 documented as of this encounter
--- OUTSIDE RECORDS SUMMARY | 2024-09-03 10:34 | XMS_ITS | Encounter Summary ---
Author Organization [employer] Address [address] [facility] 7t [place] [address] Care Team Providers Care Administrator Social Welfare Name Role Phone Roberto [facility] Primary Care Provider Reason for Visit * Reason Comments Med Refill Encounter Details Date Type Department Care Team (Late st Contact Info) Description 01/02/2024 Refill [facility] MED & PEDS [address] [place], [place] [phone] Roberto [facility] [address] [place] [address] Nontraumatic incomplete tear of rotator cuff, unspecified [...] Description 09/25/2024 11:00 AM EDT Office Visit [facility] MED[facility] [address] [place] [address] 11/05/2024 9:00 AM EDT Office Visit [address] [address] Carmen Mejia FNP [address] [place] [phone] documented as of this encounter Visit Diagnoses Diagnosis Nontraumatic incomplete tear of rotator cuff, unspecified laterality documented in this encounter Additional Health Concerns Assessment Noted Time PHQ-9 Depression Total Score: 0 11/09/19 24 9:34 AM EDT documented as of this encounter Care Teams Administrator Social Welfare Relationship Specialty Start Date End Date Carmen Mejia FNP [address] [place] [address] PCP - General Family Medicine 03/18/21 documented as of this encounter
--- OUTSIDE RECORDS SUMMARY | 2024-09-03 10:34 | XMS_ITS | Clinical Summary ---
Author Organization [employer] Address 75 [facility] 7t [place] [address] Care Team Providers Care Electronic Warfare Linguist Name Role Phone Carmen Mejia PASTRY SOUS CHEF Primary Care Provider [phone] Allergies Active Allergy Reactions Criticality Noted Date [...] 1 TABLET BY MOUTH EVERY MORNING (CALL [phone] FOR APPOINTMENT (Dr. Pillai)) 023 Active carvedilol (Coreg) 25 MG tablet TAKE 1 TABLET BY MOUTH TWICE DAILY IN THE MORNING AND IN THE EVENING WITH FOOD 023 Active atorvastatin (Lipitor) 40 MG tablet Take 40 mg by mouth at bedtime. 023 Active Aspirin Low Dose 81 MG EC tablet TAKE 1 TABLET BY MOUTH EVERY MORNING (CALL [phone] FOR APPOINTMENT (Dr. Pillai )) 023 Active [...] day. 30 tablet 11 024 2024 Active citalopram (CeleXA) 10 MG tabletIndication s:Mood [...] AFTER USING. 10.2 g 3 024 Active albuterol (Ventolin HFA) 108 (90 Base) MCG/ACT inhalerIndicatio ns:Moderate persistent asthma without complication INHALE 2 PUFFS BY MOUTH EVERY 4 TO 6 HOURS NEEDED 18 g 2 025 Active Dulaglutide (Trulicity) 4.5 MG/0.5ML solution [...] EVERY MORNING 30 tablet 5 025 Active glucose blood (FREESTYLE LITE) test stripIndications :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) TEST BLOOD SUGAR 3 TIMES DAILY 100 strip 11 025 Active TRUEplus Lancets 33G miscIndications: 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) TEST BLOOD SUGAR 3 TIMES DAILY 100 each 11 025 Active zolpidem (Ambien) 5 MG tabletIndication s:Primary insomnia TAKE 1 TABLET BY MOUTH AT BEDTIME 30 tablet 1 025 Active acetaminophen-co deine (Tylenol w/ Codeine #4) 300-60 MG tabletIndication s:Nontraumatic incomplete tear of rotator cuff, unspecified laterality Take 1 tablet by mouth every 8 (eight) hours if needed for moderate pain for up to 28 days. Do not start before August 31, 2024. 84 tablet 025 2024 Active FREESTYLE LITE test stripIndications :Diabetes mellitus type 2 with neurological manifestations ([facility]) TEST BLOOD SUGAR FOUR TIMES DAILY 100 strip 11 024 2024 Discontinued(R eorder (will not trigger notification to Pharmacy)) cetirizine (ZyrTEC) 10 MG tabletIndication s:Moderate persistent asthma without complication TAKE 1 TABLET BY MOUTH EVERY MORNING 30 tablet 5 024 2024 Discontinued cyanocobalamin (Vitamin B-12) 1000 MCG tablet TAKE 1 TABLET BY MOUTH EVERY MORNING 30 tablet 5 024 2024 Discontinued TRUEplus Lancets 33G miscIndications: Diabetes mellitus type 2 with neurological manifestations ([facility]) TEST BLOOD SUGAR FOUR TIMES DAILY 100 each 11 024 2024 Discontinued(R eorder (will not trigger notification to Pharmacy)) zolpidem (Ambien) 5 MG tabletIndication s:Primary insomnia Take 1 tablet (5 mg) by mouth at bedtime. 30 tablet 1 025 2024 Discontinued acetaminophen-co deine (Tylenol w/ Codeine #4) 300-60 MG tabletIndication s:Nontraumatic incomplete tear of rotator cuff, unspecified laterality TAKE 1 TABLET BY MOUTH EVERY 8 HOURS NEEDED FOR MODERATE PAIN 84 tablet 025 2024 Discontinued Active Problems Problem Noted Date Diagnosed Date Long-term current use of opiate analgesic 2023 Overview (05/16/2024): Medication: Tylenol w/ Codeine #4 (300-60mg) Q8H PRN Indication: Rotator cuff tear (not ideal surgical candidate) Tier III (Q6 month visits) Last LICENSED PESTICIDE APPLICATOR Agreement: 11/17/23 Assessment & Plan (07/24/2024 3:07 PM EST): Timeline: - 11/17/23: LICENSED PESTICIDE APPLICATOR Agreement, Utox/pill count as expected - 12/13/23: NCNS to Group visit - 12/27/23: Initial Group Visit, Utox/pill count as expected - 01/31/24: Group visit, Utox/pill count as expected - 03/13/24: Group visit, Utox/pill count as expected - 05/15/24: Group visit, Utox/pill count as expected - 07/17/24: Group visit, Utox/pill count as expected Assessment & Plan (05/15/2024 6:31 PM EST): Timeline: - 11/17/23: LICENSED PESTICIDE APPLICATOR Agreement, Utox/pill count as expected - 12/13/23: [...] Overview (07/20/2022): ?? Followed by cardiology at [facility]. ?? Hx of reduced ejection fraction that [...] managing pain with Tylenol #4. Compliant with LICENSED PESTICIDE APPLICATOR agreement ?? Followed by [facility] pain mnmt. Assessment & Plan (07/24/2024 3:07 [...] Healthcare maintenance 07/20/2022 Overview (04/28/2023): CRC: 2016 [facility] 10 year f/u PSA: 07/2022 0.57 HIV: Negative 2019 Hepatitis: Negative HCV 2019 Declines covid vaccine Assessment & Plan (01/13/2023 10:32 AM EDT): - Will request [facility] colonoscopy records Carpal tunnel syndrome on both sides 07/20/2022 Overview (07/20/2022): ?? EMG 12/2021-bilateral moderate-severe ulnar and median neuropathy and bilateral anahy guber anastamosis ?? Seen by [facility] Dr. Nixon 04/2022; surgical candidate would require [...] hypertension 07/14/2017 Overview (10/15/2022): ?? Followed by [facility] cardiology ?? Hydralazine 50mg b.i.d ?? Carvediol [...] dysfunction 12/04/2015 Overview (07/20/2022): ?? Followed by [facility] urology and receives SQ testosterone Hypogonadism male 12/04/2015 Mixed hyperlipidemia 12/04/2015 Overview (10/15/2022): ?? Atorvastatin 40mg daily Assessment & Plan (10/15/2022 3:42 PM EDT): ?? Continue current regimen Old DE (myocardial infarction) 12/04/2015 Encounters Date Type Department Care Team Description 08/27/2024 Refill [facility] [address] [place] [address] Carmen Mejia, STEVEN Nontraumatic incomplete tear of rotator cuff, unspecified laterality 08/22/2024 Refill [facility] [address] [facility] [place] [address] Carmen Mejia FNP Primary insomnia 08/20/2024 Refill [facility] [address] [place] [address] Carmen Mejia FNP 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) 08/12/2024 Refill [facility] [address] [place] [address] Valdez STEVEN Morales Moderate persistent asthma without complication 08/03/2024 9:15 AM EST Office Visit [facility] [address] [place] [address] Valdez STEVEN Morales 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) (Primary Dx); Cardiomyopathy, unspecified type (CMS/HCC); Dysphagia, unspecified type; Dietary counseling; Exercise counseling; Class 1 obesity due to excess calories with serious comorbidity and body mass index (BMI) of 33.0 to 33.9 in adult 08/03/2024 Travel 07/30/2024 Refill [facility] [address] [place] [address] Carmen Mejia FNP Moderate persistent asthma without complication; Nontraumatic incomplete tear of rotator cuff, unspecified laterality 07/23/2024 Patient Outreach [facility] [address] [place] [address] Carmen Mejia FNP Pre-visit Planning ((Unable to reach for PVP screening, LVM)) 07/17/2024 11:00 AM EST Office Visit [facility] [address] [place] [address] Melani Haider, STEVEN Traumatic incomplete tear of left rotator cuff, subsequent encounter (Primary Dx); Long-term current use of opiate analgesic 07/17/2024 Travel 06/29/2024 Telephone [facility] [address] [place] [address] Carmen Mejia FNP Med Refill 06/28/2024 Refill [facility] [address] [place] [address] Carmen Mejia FNP Primary insomnia 06/28/2024 Refill [facility] [address] [place] [address] Roberto, Carmen, PASTRY SOUS CHEF Nontraumatic incomplete tear of rotator cuff, unspecified laterality 06/19/2024 Refill [facility] [address] [place] [address] Valdez [facility] Chronic obstructive pulmonary disease, unspecified COPD type ([facility]) 06/14/2024 Refill [facility] [address] [facility] [address] Valdez [facility] Diabetes mellitus type 2 with neurological manifestations ([facility]) from Last 3 Months Immunizations Name Administration [...] Description 09/25/2024 11:00 AM EDT Office Visit [facility] [address] [place] [address] 11/05/2024 9:00 AM EDT Office Visit [facility] [address] [place] [address] Valdez, Carmen, [facility] [address] [place] [address] Health Maintenance Due Date Last Done Comments [...] HGB A1C (08/03/2024 9:13 AM EST) Pathologist [facility] Hemoglobin A1C 8.1(A) 4.0 - 6.0 % Blood 08/03/2024 9:13 AM EST [facility] POINT OF CARE TEST ENTER/EDIT ORDERABLES Final Result * POCT Glucose (08/03/2024 9:13 AM EST) Pathologist [facility] Glucose Blood, POC 167 60 - 200 mg/dL Blood Capillary blood specimen / Unknown 08/03/2024 9:13 AM EST [facility] POINT OF CARE TEST ENTER/EDIT ORDERABLES Final Result * POCT KINA-14 Urine Drug Screen (07/17/2024 2:07 PM EST) [facility] Opiate Screen, Urine Positive Urine Urine specimen obtained by clean catch procedure / Unknown 07/17/2024 2:07 PM EST Michelle Peters RN - 07/17/2024 2:07 PM EST UTOX cup Lot#[id number] Exp. 03/14/26 Internal Pass Control Melani Haider [facility] POINT OF CARE TEST ENTER/EDIT ORDERABLES Final Result * (ABNORMAL) Albumin, Random Urine W/Creatinine (08/31/2023 8:39 AM EDT) [facility] Creatinine, Urine 97.43 mg/dL [facility] Microalbumin Urine 122.0 mg/L [facility] Microalbum Creatinine Ratio Ur 125.2(H) <30 ug/mg cr [facility] Comment:Albumin/Creatinine R at Reference Ranges: Normal: < 30 ug/mg creatinine Microalbuminuria: 30 - 300 ug/mg creatinineClinical Albuminuria: > 300 ug/mg creatinine 08/31/2023 8:39 AM EDT 08/31/2023 11:26 AM EDT [facility] LAB URINE ORDERABLES Final Re sult Performing Organization Address [facility] Co de Phone Number [facility] [address] [place] [address] [phone] * Lipid Panel, Standard (07/20/2023 9:32 AM EST) Triglycerides 71 <150 mg/dL [facility] Comment:Desirable Triglyceri de: less than 150 mg/dLBorderline High Triglyceride 150-199 mg/dLHigh Triglyceride: 200-499 mg/dLVery High Triglyceride: greater than or equal to 5OO mg/dL Cholesterol 127 <200 mg/dL [facility] Comment:Desirable Cholestero l: less than 200 mg/dLBorderline High Cholesterol: 200-239 mg/dLHigh Cholesterol: greater than 239 mg/dL LDL Cholesterol Calculated 64 <100 mg/dL [facility] Comment:Desirable LDL: less than 100 mg/dLNear Optimal/Above Optimal LDL: 110- 129 mg/dLBorderline High LDL: 130-159 mg/dLHigh LDL: 160-189 mg/dLVery High LDL: greater than or equal to 190 mg/dL HDL Cholesterol 49 >40 mg/dL [facility] Comment:Desirable HDL: great er than 40 mg/dL Note: This HDL assay may give artificially low results in patients with liver disease. Blood Venous blood specimen / Unknown 07/20/2023 9:32 AM EST 07/20/2023 11:47 AM EST [facility] LAB BLOOD ORDERABLES Final Re sult Performing Organization Address [facility]/ZIP Co de Phone Number [facility] [address] [place] [address] [phone] * HEPATITIS C AB W/REFL TO HCV RNA, QN, PCR (02/27/2020 9:28 AM EDT) HEPATITIS C ANTIBODY NON-REACT [facility] NON-REACT [facility] INDEX 0.02 <1.00 [facility] Comment: ?? HCV antibody was non-reactive. There is no laboratory ?? evidence of HCV infection. ?? In most cases, no further action is required. However, if recent HCV exposure is suspected, a test for HCV RNA (test code 45615) is suggested. ?? For additional information please refer to http://Message Systems/faq/WQQ66e5 (This link is being provided for informational/ educational purposes only.) ?? 02/27/2020 9:28 AM EDT Daezel Lacanlale PASTRY SOUS CHEF HISTORICAL/NON ORDERABLE LA BS Final Result Performing Organization Address [facility] Phone Number [facility] [address] [place] [address], * HIV 1/2 ANTIGEN/ANTIBODY,FOURTH GENERATION W/RFL (02/27/2020 9:28 AM EDT) HIV-1/2 ANTIGEN AND ANTIBODIES, 4TH GENERATION W/ REFLEX NON-REACT LAYNE NON-REACT [facility] Comment: HIV-1 antigen and HIV-1/HIV-2 [...] ? For additional information please refer to http://[employer].BluePoint Security™/faq/LRE563 (This link is being provided for informational/ educational purposes only.) ? The performance of this assay has not been clinically validated in patients less than 2 years old. ?? 02/27/2020 9:28 AM EDT Daezel Lacanlale PASTRY SOUS CHEF LAB BLOOD ORDERABLES Final Result Performing Organization Address [facility] Phone Number [facility] [address] [place], [place] [address] * (ABNORMAL) Colonoscopy (06/20/2015) Colonoscopy Abnormal( A) Normal Comment:polyps-5 year follow up us Historical Provider MD HEALTH MAINTENANCE Final Result from Last 3 Months or Most Recently Relevant to Health Maintenance Insurance - [facility] Care Teams Electronic Warfare Linguist Relationship Specialty Start Date End Date Carmen Mejia FNP [address] [place] [phone] PCP - General Family Medicine 03/18/21
--- OUTSIDE RECORDS SUMMARY | 2024-09-03 10:34 | XMS_ITS | Encounter Summary ---
Author Organization [employer] Address [address] [place] [address] 7t [place] [address] Care Team Providers Care Web Knitter Name Role Phone Carmen Mejia Primary Care Provider [phone] Encounter Details Date Type Department Care Team (Late st Contact Info) Description 06/11/2022 Orders Only [facility] [address] [place] [address] Ritika Mcgovern LPN Social History Tobacco Use [...] [facility] [address] [place] [address] 11/05/2024 9:00 AM EDT Office Visit [facility] [address] [place] [address] Carmen Mejia FNP [address] [place] [address] documented as of this encounter Visit Diagnoses Not on filedocumented in this encounter Care Teams Web Knitter Relationship Specialty Start Date End Date Carmen Mejia FNP [address] [place] [phone] PCP - General Family Medicine 03/18/21 documented as of this encounter
--- OUTSIDE RECORDS SUMMARY | 2024-09-03 10:34 | XMS_ITS | Encounter Summary ---
Author Organization [employer] Address [address] [facility] 7t [place] [address] Care Team Providers Care Seam Steamer Name Role Phone Carmen Mejia [facility] Primary Care Provider [phone] Reason for Visit * Reason Comments Med Refill Encounter Details Date Type Department Care Team (Late st Contact Info) Description 08/22/2024 Refill [facility] [address] [place], [place] [phone] [facility] [address] [place] [address] Primary insomnia Social History Tobacco Use Types [...] 09/25/2024 11:00 AM EDT Office Visit [facility] [address] [place] [address] 11/05/2024 9:00 AM EDT Office Visit [address] [address] Carmen Mejia FNP [address] [place] [address] documented as of this encounter Visit Diagnoses Diagnosis Primary insomnia Persistent disorder of initiating or maintaining sleep documented in this encounter Additional Health Concerns Assessment Noted Time PHQ-9 Depression Total Score: 0 02/10/20 24 9:01 AM EDT documented as of this encounter Care Teams Seam Steamer Relationship Specialty Start Date End Date Carmen Mejia FNP [address] [place] [phone] PCP - General Family Medicine 03/18/21 documented as of this encounter
--- OUTSIDE RECORDS SUMMARY | 2024-09-03 10:34 | XMS_ITS | Encounter Summary ---
Author Organization [employer] Address 75 [facility] 7t [place] [address] Care Team Providers Care Skiver Sock Linings Name Role Phone Carmen Mejia SPECIMEN TRANSPORTER Primary Care Provider [phone] Encounter Details Date Type Department Care Team (Late st Contact Info) Description 05/05/[address] [facility] [address] [place] [address] Dia Gisbon Social History Tobacco Use Types Packs/Day Years [...] Description 09/25/2024 11:00 AM EDT Office Visit [facility] [address] [place] [address] 11/05/2024 9:00 AM EDT Office Visit [facility] [address] [place] [address] Carmen Mejia FNP [address] [place] [address] documented as of this encounter Visit Diagnoses Not on filedocumented in this encounter Additional Health Concerns Assessment Noted Time PHQ-9 Depression Total Score: 24 023 9:04 AM EDT documented as of this encounter Care Teams Skiver Sock Linings Relationship Specialty Start Date End Date Carmen Mejia FNP [address] [place] [phone] PCP - General Family Medicine 03/18/21 documented as of this encounter
--- OUTSIDE RECORDS SUMMARY | 2024-09-03 10:34 | XMS_ITS | Encounter Summary ---
Author Organization [employer] Address 75 [facility] 7t [place] [address] Care Team Providers Care Life Insurance Actuary Name Role Phone Carmen Mejia [facility] Primary Care Provider [phone] Encounter Details Date Type Department Care Team (Late Contact Info) Description 10/15/2022 Orders Only [facility] [address] [place], [place] [phone] Ritika Mcgovern LPN Social History Tobacco Use [...] 11:00 AM EDT Office Visit [facility] [address] [place] [phone] 11/05/2024 9:00 AM EDT Office Visit [facility] [address] [place] [address] BerwickCarmen [facility] [address] [place] [address] documented as of this encounter Visit Diagnoses Not on filedocumented in this encounter Additional Health Concerns Assessment Noted Time PHQ-9 Depression Total Score: 0 10/15/19 23 8:58 AM EDT documented as of this encounter Care Teams Life Insurance Actuary Relationship Specialty Start Date End Date Carmen Mejia FNP [address] [place] [phone] PCP - General Family Medicine 03/18/21 documented as of this encounter
--- OUTSIDE RECORDS SUMMARY | 2024-09-03 10:34 | XMS_ITS | Encounter Summary ---
Author Organization [employer] [facility] Address [address] [place] [address] 7[address] [place] [address] Care Team Providers Care Storage Brine Worker Name Role Phone Carmen Mejia [facility] Primary Care Provider [phone] Reason for Visit * Reason Comments Med Refill Encounter Details Date Type Department Care Team (Late st Contact Info) Description 11/18/2022 Refill [facility] [address] [place], [place] [phone] [facility] [address] [place], [place] [phone] Primary insomnia; Type 2 diabetes mellitus with other specified complication, without long-term current use of insulin ([facility]) Social History Tobacco Use Types Packs/Day Years [...] 11:00 AM EDT Office Visit [facility] [address] [place] [phone] 11/05/2024 9:00 AM EDT Office Visit [facility] [address] [place] [phone] [place] martinez FNP [address] [place] [address] documented as of this encounter Visit Diagnoses Diagnosis Primary insomnia Persistent disorder of initiating or maintaining sleep Type 2 diabetes mellitus with other specified complication, without long-term current use of insulin ([facility]) documented in this encounter Additional Health Concerns Assessment Noted Time PHQ-9 Depression Total Score: 0 10/15/19 23 8:58 AM EDT documented as of this encounter Care Teams Storage Brine Worker Relationship Specialty Start Date End Date Carmen Mejia FNP [address] [place] [address] PCP - General Family Medicine 03/18/21 documented as of this encounter
--- OUTSIDE RECORDS SUMMARY | 2024-09-03 10:34 | XMS_ITS | Encounter Summary ---
Author Organization [employer] Address [address] [facility] 7t [place] [address] Care Team Providers Care Supervisor Capacitor Processing Name Role Phone Roberto [facility] Primary Care Provider [phone] Reason for Visit * Reason Comments Med Refill Encounter Details Date Type Department Care Team (Late st Contact Info) Description 01/03/2024 Refill [facility] [address] [place], [place] [phone] Roberto [facility] [address] [place] [address] Nontraumatic incomplete tear of rotator cuff, unspecified [...] Description 09/25/2024 11:00 AM EDT Office Visit [facility] [address] [place] [phone] 11/05/2024 9:00 AM EDT Office Visit [address] [address] Carmen Mejia FNP [address] [place] [address] documented as of this encounter Visit Diagnoses Diagnosis Nontraumatic incomplete tear of rotator cuff, unspecified laterality documented in this encounter Additional Health Concerns Assessment Noted Time PHQ-9 Depression Total Score: 0 11/09/19 24 9:34 AM EDT documented as of this encounter Care Teams Supervisor Capacitor Processing Relationship Specialty Start Date End Date Carmen Mejia FNP [address] [place] [address] PCP - General Family Medicine 03/18/21 documented as of this encounter
--- OUTSIDE RECORDS SUMMARY | 2024-09-03 10:34 | XMS_ITS | Encounter Summary ---
Author Organization [employer] Address 75 [facility] 7t [place] [address] Care Team Providers Care Financial Sales Consultant Name Role Phone Carmen Mejia [facility] Primary Care Provider [phone] Reason for Visit * Reason Comments Med Refill Encounter Details Date Type Department Care Team (Late st Contact Info) Description 10/12/2023 Refill [facility] [address] [place], [place] [phone] Carmen Mejia [facility] [address] [place] [address] Primary insomnia Social History Tobacco Use Types [...] Description 09/25/2024 11:00 AM EDT Office Visit [facility] [address] [place] [phone] 11/05/2024 9:00 AM EDT Office Visit [address] [address] Carmen Mejia FNP [address] [place] [address] documented as of this encounter Visit Diagnoses Diagnosis Primary insomnia Persistent disorder of initiating or maintaining sleep documented in this encounter Additional Health Concerns Assessment Noted Time PHQ-9 Depression Total Score: 24 023 9:04 AM EDT documented as of this encounter Care Teams Financial Sales Consultant Relationship Specialty Start Date End Date Carmen Mejia FNP [address] [place] [phone] PCP - General Family Medicine 03/18/21 documented as of this encounter
--- OUTSIDE RECORDS SUMMARY | 2024-09-03 10:34 | XMS_ITS | Encounter Summary ---
Author Organization [employer] Address [address] [place] [address] 7t [place] [address] Care Team Providers Care Patient Companion Name Role Phone Roberto Carmen CONVERSION WORKER Primary Care Provider [phone] Reason for Visit * Reason Comments Med Refill Encounter Details Date Type Department Care Team (Late st Contact Info) Description 11/16/2022 Refill [facility] MED[facility]INE [address] [place] [address] [phone] Melani Haider FNP [address] [place], [place] [phone] Other chronic pain Social History Tobacco Use [...] Description 09/25/2024 11:00 AM EDT Office Visit [facility] [address] [place] [address] [phone] 11/05/2024 9:00 AM EDT Office Visit [facility] [address] [place] [address] [phone] Carmen Mejia FNP [address] [place] [address] documented as of this encounter Visit Diagnoses Diagnosis Other chronic pain documented in this encounter Additional Health Concerns Assessment Noted Time PHQ-9 Depression Total Score: 0 10/15/19 23 8:58 AM EDT documented as of this encounter Care Teams Patient Companion Relationship Specialty Start Date End Date Carmen eMjia FNP [address] [place] [address] [place] [address] PCP - General Family Medicine 03/18/21 documented as of this encounter
--- OUTSIDE RECORDS SUMMARY | 2024-09-03 10:34 | XMS_ITS | Encounter Summary ---
Author Organization [employer] Address [address] [place] [address] 7t [place] [address] Care Team Providers Care V Block Saw Operator Name Role Phone Carmen Mejia [facility] Primary Care Provider [phone] Encounter Details Date Type Department Care Team (Late st Contact Info) Description 03/07/2023 Orders Only [facility] CHC MED & PEDS 505 [place], [place] [phone] Shannon Sargent LPN Social History Tobacco Use [...] 11:00 AM EDT Office Visit [facility] MEDICINE [address] [place] [address] 11/05/2024 9:00 AM EDT Office Visit [facility] MED[facility]INE [address] [place] [address] Carmen Mejia [facility] 230 [place] [address] documented as of this encounter Visit Diagnoses Not on filedocumented in this encounter Additional Health Concerns Assessment Noted Time PHQ-9 Depression Total Score: 0 01/14/20 23 9:12 AM EDT documented as of this encounter Care Teams V Block Saw Operator Relationship Specialty Start Date End Date Carmen Mejia FNP [address] [place] [address] PCP - General Family Medicine 03/18/21 documented as of this encounter
--- OUTSIDE RECORDS SUMMARY | 2024-09-03 10:34 | XMS_ITS | Encounter Summary ---
Author Organization [employer] [facility] Address [address] [place] [address] 7[place] [address] Care Team Providers Care Carpenter/Labor Name Role Phone Carmen Mejia Primary Care Provider [phone] Encounter Details Date Type Department Care Team (Late st Contact Info) Description 07/08/2022 Orders Only [facility] MEDICINE [address] [place] [address] Shannon Sargent LPN Social History Tobacco Use [...] 09/25/2024 11:00 AM EDT Office Visit [facility] MEDICINE [address] [place] [address] 11/05/2024 9:00 AM EDT Office Visit [address] [address] Carmen Mejia FNP [address] [place] [address] documented as of this encounter Visit Diagnoses Not on filedocumented in this encounter Care Teams Carpenter/Labor Relationship Specialty Start Date End Date Carmen Mejia FNP [address] [place] [address] PCP - General Family Medicine 03/18/21 documented as of this encounter
--- OUTSIDE RECORDS SUMMARY | 2024-09-03 10:34 | XMS_ITS | Encounter Summary ---
Author Organization [employer] Address [address] [facility] 7t [place] [address] Care Team Providers Care Grinder Mill Operator Name Role Phone Carmen Mejia [facility] Primary Care Provider [phone] Reason for Visit * Reason Comments Med Refill Encounter Details Date Type Department Care Team (Late st Contact Info) Description 08/12/2024 Refill [facility] MEDICINE 230 [place], [place] [phone] Carmen Mejia [facility] 230 [place] [address] Moderate persistent asthma without complication Social History [...] Description 09/25/2024 11:00 AM EDT Office Visit [facility] MEDICINE [address] [place] [address] 11/05/2024 9:00 AM EDT Office Visit [facility] MEDICINE [address] [place] [address] Carmen Mejia FNP 230 [place] [address] documented as of this encounter Visit Diagnoses Diagnosis Moderate persistent asthma without complication documented in this encounter Additional Health Concerns Assessment Noted Time PHQ-9 Depression Total Score: 0 02/10/20 24 9:01 AM EDT documented as of this encounter Care Teams Grinder Mill Operator Relationship Specialty Start Date End Date Carmen Mejia FNP [address] [place] [address] PCP - General Family Medicine 03/18/21 documented as of this encounter
== END ==
LOC: HO.CARD 09:39
PROVIDERS: PCP Registered Nurse; Visit Provider Registered Nurse
DX: I42.9 Cardiomyopathy, unspecified (principal)
CPT/HCPCS: 93306; Q9957

== ENCOUNTER → 2024-09-03 09:42 | Outpatient (BNV) | payer OTHER, SELFPAY | PROVIDERS: PCP Registered Nurse; Visit Provider Internal Medicine | DX: I42.8 Other cardiomyopathies (principal); Z95.0 Presence of cardiac pacemaker | CPT/HCPCS: 93306 ==

== ENCOUNTER 2024-09-21 10:37 | Outpatient (REF) | payer OTHER, SELFPAY ==
--- OUTSIDE RECORDS SUMMARY | 2024-09-21 12:10 | XMS_ITS | Encounter Summary ---
Author Organization [employer] Address [address] [place] [address] 7t [place] [address] Care Team Providers Care Marketing Systems Analyst Name Role Phone Roberto Carmen [facility] Primary Care Provider Reason for Visit * Reason Comments Med Refill Encounter Details Date Type Department Care Team (Late st Contact Info) Description 11/16/2022 Refill [facility]ICINE 230 [place], [place] [phone] Melani Haider FNP 505 [place], [place] [phone] Other chronic pain Social History Tobacco Use [...] Description 09/25/2024 11:00 AM EDT Office Visit [facility] [address] [place] [address] [phone] 11/05/2024 9:00 AM EDT Office Visit [facility] [address] [place] [address] [phone] Carmen Mejia FNP 230 [place] [address] documented as of this encounter Visit Diagnoses Diagnosis Other chronic pain documented in this encounter Additional Health Concerns Assessment Noted Time PHQ-9 Depression Total Score: 0 10/15/19 23 8:58 AM EDT documented as of this encounter Care Teams Marketing Systems Analyst Relationship Specialty Start Date End Date Carmen Mejia FNP [address] [place] [address] [place] [address] PCP - General Family Medicine 03/18/21 documented as of this encounter
--- OUTSIDE RECORDS SUMMARY | 2024-09-21 12:10 | XMS_ITS | Encounter Summary ---
Author Organization [employer] [facility] Address [address] [place] [address] 7t [place] [address] Care Team Providers Care Development Analyst Name Role Phone Carmen Mejia [facility] Primary Care Provider [phone] Reason for Visit * Reason Comments Med Refill Encounter Details Date Type Department Care Team (Late st Contact Info) Description 11/18/2022 Refill [facility] MEDICINE 230 [place], [place] [phone] [facility] [address] [place], [place] [phone] Primary insomnia; Type 2 diabetes mellitus with other specified complication, without long-term current use of insulin ([facility]) Social History Tobacco Use Types Packs/Day [...] 09/25/2024 11:00 AM EDT Office Visit [facility] MEDICINE [address] [place] [address] [phone] 11/05/2024 9:00 AM EDT Office Visit [facility] MEDICINE [address] [place] [phone] RobertoCarmen martinez FNP [address] [place] [address] documented as of this encounter Visit Diagnoses Diagnosis Primary insomnia Persistent disorder of initiating or maintaining sleep Type 2 diabetes mellitus with other specified complication, without long-term current use of insulin ([facility]) documented in this encounter Additional Health Concerns Assessment Noted Time PHQ-9 Depression Total Score: 0 10/15/19 23 8:58 AM EDT documented as of this encounter Care Teams Development Analyst Relationship Specialty Start Date End Date Carmen Mejia FNP [address] [place] [address] PCP - General Family Medicine 03/18/21 documented as of this encounter
--- OUTSIDE RECORDS SUMMARY | 2024-09-21 12:10 | XMS_ITS | Encounter Summary ---
Author Organization [employer] Address [address] [facility] 7t [place] [address] Care Team Providers Care Train Announcer Name Role Phone Carmen Mejia [facility] Primary Care Provider [phone] Encounter Details Date Type Department Care Team (Late Contact Info) Description 10/15/2022 Orders Only [facility] CHC MED & PEDS [address] [place], [place] [phone] Ritika Mcgovern LPN Social History Tobacco Use [...] 09/25/2024 11:00 AM EDT Office Visit [facility] MEDICINE [address] [place] [address] [phone] 11/05/2024 9:00 AM EDT Office Visit [facility] MEDICINE 230 [place] [address] IrvingCarmen [facility] 230 [place] [address] documented as of this encounter Visit Diagnoses Not on filedocumented in this encounter Additional Health Concerns Assessment Noted Time PHQ-9 Depression Total Score: 0 10/15/19 23 8:58 AM EDT documented as of this encounter Care Teams Train Announcer Relationship Specialty Start Date End Date Carmen Mejia FNP [address] [place] [address] PCP - General Family Medicine 03/18/21 documented as of this encounter
--- OUTSIDE RECORDS SUMMARY | 2024-09-21 12:10 | XMS_ITS | Encounter Summary ---
Author Organization [employer] Address [address] [facility] 7t [place] [address] Care Team Providers Care Health Care Assistant Name Role Phone Carmen Mejia [facility] Primary Care Provider [phone] Encounter Details Date Type Department Care Team (Late st Contact Info) Description 03/07/2023 Orders Only [facility] CHC MED & PEDS [address] [place], [place] [phone] Shannon Sargent LPN Social History Tobacco Use [...] 11:00 AM EDT Office Visit [facility] MEDICINE [address] [place] [address] 11/05/2024 9:00 AM EDT Office Visit [facility] MEDICINE [address] [place] [address] Carmen Mejia [facility] 230 [place] [address] documented as of this encounter Visit Diagnoses Not on filedocumented in this encounter Additional Health Concerns Assessment Noted Time PHQ-9 Depression Total Score: 0 01/14/20 23 9:12 AM EDT documented as of this encounter Care Teams Health Care Assistant Relationship Specialty Start Date End Date Carmen Mejia FNP [address] [place] [address] PCP - General Family Medicine 03/18/21 documented as of this encounter
--- OUTSIDE RECORDS SUMMARY | 2024-09-21 12:10 | XMS_ITS | Encounter Summary ---
Author Organization [employer] Address [address] [facility] 7t [place] [address] Care Team Providers Care Rn Wellness Name Role Phone Carmen Mejia DATA LEAD Primary Care Provider [phone] Reason for Visit * Reason Onset Date Comments denture appt PA 11/02/2022 Encounter Details Date Type Department Care Team (Late st Contact Info) Description 11/02/2022 Telephone [facility] ADULT DENTAL 230 [place] [address] Bal Aponte, DMD [address] [place] [address] denture appt PA Social History Tobacco Use [...] 11:09 AM EDT Rep from [facility] called in checking in on [...] Description 09/25/2024 11:00 AM EDT Office Visit [address] [address] 11/05/2024 9:00 AM EDT Office Visit [address] [address] Carmen Mejia FNP [address] [place] [address] documented as of this encounter Visit Diagnoses Not on filedocumented in this encounter Additional Health Concerns Assessment Noted Time PHQ-9 Depression Total Score: 0 10/15/19 23 8:58 AM EDT documented as of this encounter Care Teams Rn Wellness Relationship Specialty Start Date End Date Carmen Mejia FNP [address] [place] [address] PCP - General Family Medicine 03/18/21 documented as of this encounter
--- OUTSIDE RECORDS SUMMARY | 2024-09-21 12:11 | XMS_ITS | Encounter Summary ---
Author Organization [employer] Address [address] [facility] 7t [place] [address] Care Team Providers Care Associate Professor Of Musicology Name Role Phone Carmen Mejia [employer] Primary Care Provider [phone] Encounter Details Date Type Department Care Team (Late st Contact Info) Description 05/05/2023 Abstract [facility] MEDICINE [address] [place] [address] Dia Gibson Social History Tobacco Use Types [...] Description 09/25/2024 11:00 AM EDT Office Visit [facility] MEDICINE [address] [place] [address] 11/05/2024 9:00 AM EDT Office Visit [facility] MEDICINE [address] [place] [address] Carmen Mejia FNP [address] [place] [address] documented as of this encounter Visit Diagnoses Not on filedocumented in this encounter Additional Health Concerns Assessment Noted Time PHQ-9 Depression Total Score: 24 023 9:04 AM EDT documented as of this encounter Care Teams Associate Professor Of Musicology Relationship Specialty Start Date End Date Carmen Mejia FNP [address] [place] [address] PCP - General Family Medicine 03/18/21 documented as of this encounter
--- OUTSIDE RECORDS SUMMARY | 2024-09-21 12:11 | XMS_ITS | Encounter Summary ---
Author Organization [employer] [facility] Address [address] [place] [address] 7t [place] [address] Care Team Providers Care Manager Massage Department Name Role Phone Carmen Mejia Primary Care Provider [phone] Encounter Details Date Type Department Care Team (Late st Contact Info) Description 07/08/2022 Orders Only [facility] MEDICINE [address] [place] [address] Shannon Sargent LPN Social History Tobacco Use [...] Description 09/25/2024 11:00 AM EDT Office Visit [facility] MEDICINE [address] [place] [address] 11/05/2024 9:00 AM EDT Office Visit [address] [address] Carmen Mejia FNP [address] [place] [address] documented as of this encounter Visit Diagnoses Not on filedocumented in this encounter Care Teams Manager Massage Department Relationship Specialty Start Date End Date Carmen Mejia FNP [address] [place] [address] PCP - General Family Medicine 03/18/21 documented as of this encounter
--- OUTSIDE RECORDS SUMMARY | 2024-09-21 12:11 | XMS_ITS | Encounter Summary ---
Author Organization [employer] Address [address] [facility] 7t [place] [address] Care Team Providers Care Casing Builder Name Role Phone Carmen Mejia Primary Care Provider [phone] Encounter Details Date Type Department Care Team (Late st Contact Info) Description 07/07/2022 Orders Only [facility] CHC MED & PEDS [address] [place] [address] Ritika Mcgovern LPN Social History Tobacco Use [...] Description 09/25/2024 11:00 AM EDT Office Visit [facility] MEDICINE [address] [place] [address] 11/05/2024 9:00 AM EDT Office Visit [facility] MEDICINE [address] [place] [address] Carmen Mejia FNP 230 [place] [address] documented as of this encounter Visit Diagnoses Not on filedocumented in this encounter Care Teams Casing Builder Relationship Specialty Start Date End Date Carmen Mejia FNP [address] [place] [address] PCP - General Family Medicine 03/18/21 documented as of this encounter
--- OUTSIDE RECORDS SUMMARY | 2024-09-21 12:11 | XMS_ITS | Encounter Summary ---
Author Organization [employer] Address [address] [facility] 7t [place] [address] Care Team Providers Care Senior Software Tester Name Role Phone Carmen Mejia [facility] Primary Care Provider [phone] Reason for Visit * Reason Comments Med Refill Encounter Details Date Type Department Care Team (Late st Contact Info) Description 10/12/2023 Refill [facility] MEDICINE 230 [place], [place] [phone] Carmen Mejia [facility] 230 [place] [address] Primary insomnia Social History Tobacco Use Types [...] AM EDT Office Visit [facility] MEDICINE [address] [place] [address] 11/05/2024 9:00 AM EDT Office Visit [address] [address] Carmen Mejia FNP [address] [place] [address] documented as of this encounter Visit Diagnoses Diagnosis Primary insomnia Persistent disorder of initiating or maintaining sleep documented in this encounter Additional Health Concerns Assessment Noted Time PHQ-9 Depression Total Score: 24 023 9:04 AM EDT documented as of this encounter Care Teams Senior Software Tester Relationship Specialty Start Date End Date Carmen Mejia FNP [address] [place] [address] PCP - General Family Medicine 03/18/21 documented as of this encounter
--- OUTSIDE RECORDS SUMMARY | 2024-09-21 12:11 | XMS_ITS | Encounter Summary ---
Author Organization [employer] Address [address] [facility] 7t [place] [address] Care Team Providers Care Javascript Ui Developer Name Role Phone Roberto [facility] Primary Care Provider [phone] Reason for Visit * Reason Comments Med Refill Encounter Details Date Type Department Care Team (Late st Contact Info) Description 01/03/2024 Refill [facility] CHC MED & PEDS [address] [place], [place] [phone] Roberto [facility] [address] [place] [address] Nontraumatic incomplete tear of rotator cuff, unspecified [...] Office Visit [facility] MEDICINE [address] [place] [address] 11/05/2024 9:00 AM EDT Office Visit [address] [address] Carmen Mejia FNP [address] [place] [address] documented as of this encounter Visit Diagnoses Diagnosis Nontraumatic incomplete tear of rotator cuff, unspecified laterality documented in this encounter Additional Health Concerns Assessment Noted Time PHQ-9 Depression Total Score: 0 11/09/19 24 9:34 AM EDT documented as of this encounter Care Teams Javascript Ui Developer Relationship Specialty Start Date End Date Carmen Mejia FNP [address] [place] [address] PCP - General Family Medicine 03/18/21 documented as of this encounter
--- OUTSIDE RECORDS SUMMARY | 2024-09-21 12:11 | XMS_ITS | Encounter Summary ---
Author Organization [employer] Address [address] [facility] 7t [place] [address] Care Team Providers Care Veneer Puller Name Role Phone Carmen Mejia [facility] Primary Care Provider [phone] Reason for Visit * Reason Comments Med Refill Encounter Details Date Type Department Care Team (Late st Contact Info) Description 01/08/2024 Refill [facility] MEDICINE 230 [place], [place] [phone] Carmen Mejia [facility] 230 [place] [address] Moderate persistent asthma without complication Social History [...] 09/25/2024 11:00 AM EDT Office Visit [facility] MEDICINE [address] [place] [address] 11/05/2024 9:00 AM EDT Office Visit [facility] MEDICINE [address] [place] [address] Carmen Mejia FNP 230 [place] [address] documented as of this encounter Visit Diagnoses Diagnosis Moderate persistent asthma without complication documented in this encounter Additional Health Concerns Assessment Noted Time PHQ-9 Depression Total Score: 0 11/09/19 24 9:34 AM EDT documented as of this encounter Care Teams Veneer Puller Relationship Specialty Start Date End Date Carmen Mejia FNP [address] [place] [address] PCP - General Family Medicine 03/18/21 documented as of this encounter
--- OUTSIDE RECORDS SUMMARY | 2024-09-21 12:11 | XMS_ITS | Clinical Summary ---
Author Organization [email or web address] Address [address] [facility] 7[address] [place] [address] Care Team Providers Care Asbestos Brake Lining Finisher Name Role Phone Carmen Mejia [facility] Primary Care Provider [phone] Allergies Active Allergy Reactions Criticality Noted Date [...] 1 TABLET BY MOUTH EVERY MORNING (CALL [phone] FOR APPOINTMENT (Dr. Pillai)) 023 Active carvedilol (Coreg) 25 MG tablet TAKE 1 TABLET BY MOUTH TWICE DAILY IN THE MORNING AND IN THE EVENING WITH FOOD 023 Active atorvastatin (Lipitor) 40 MG tablet Take 40 mg by mouth at bedtime. 023 Active Aspirin Low Dose 81 MG EC tablet TAKE 1 TABLET BY MOUTH EVERY MORNING (CALL [phone] FOR APPOINTMENT (Dr. Pillai )) 023 Active [...] day. 30 tablet 11 024 2024 Active budesonide-formo terol (Symbicort) 160-4.5 MCG/ACT inhalerIndicatio [...] 3 025 Active omeprazole (PriLOSEC) 20 MG capsuleIndicatio ns:Dysphagia, unspecified type Take 1 capsule [...] SUGAR 3 TIMES DAILY 100 strip 11 Active TRUEplus [...] 31, 2024. 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) Use as directed to check blood sugar four times daily 100 each 3 025 Active Blood Glucose Monitoring Suppl (GNP Easy Touch Glucose Meter) deviceIndication s: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) Use as directed to check blood sugar four times daily 1 each 025 Active glucose blood test stripIndications :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) Use as directed to check blood sugar four times daily 100 each 12 025 Active empagliflozin (Jardiance) 25 MGIndications:Ty pe 2 diabetes mellitus with other specified complication, without long-term current use of insulin (CMS/HCC) TAKE 1 TABLET BY MOUTH EVERY MORNING 30 tablet 3 025 Active QUEtiapine (SEROquel) 50 MG tabletIndication s:Type 2 diabetes mellitus with other specified complication, without long-term current use of insulin (CMS/HCC) TAKE 2 TABLETS BY MOUTH EVERY DAY AT BEDTIME 60 tablet 3 025 Active citalopram (CeleXA) 20 MG tabletIndication s:Mood disorder (CMS/HCC) TAKE 1 TABLET BY MOUTH EVERY MORNING 30 tablet 3 025 Active citalopram (CeleXA) 10 MG tabletIndication s:Mood disorder (CMS/HCC) Take 1 tablet (10 mg) by mouth in the morning. 30 tablet 3 025 Active citalopram (CeleXA) 10 MG tabletIndication s:Mood disorder (CMS/HCC) TAKE 1 TABLET BY MOUTH EVERY MORNING 30 tablet 3 024 2024 Discontinued(R eorder (will not trigger notification to Pharmacy)) citalopram (CeleXA) 20 MG tabletIndication s:Mood disorder (CMS/HCC) TAKE 1 TABLET BY MOUTH EVERY MORNING 30 tablet 3 024 2024 Discontinued QUEtiapine (SEROquel) 50 MG tabletIndication s:Type 2 diabetes mellitus with other specified complication, without long-term current use of insulin (CMS/HCC) TAKE 2 TABLETS BY MOUTH EVERY DAY AT BEDTIME 60 tablet 3 024 2024 Discontinued empagliflozin (Jardiance) 25 MGIndications:Ty pe 2 diabetes mellitus with other specified complication, without long-term current use of insulin (CMS/HCC) TAKE 1 TABLET BY MOUTH EVERY MORNING 30 tablet 3 024 2024 Discontinued metFORMIN (Glucophage) 1000 MG tabletIndication s: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) TAKE 1 TABLET BY MOUTH TWICE DAILY IN THE MORNING AND IN THE EVENING WITH MEALS 180 tablet 024 2024 Discontinued zolpidem (Ambien) 5 MG tabletIndication s:Primary insomnia [...] candidate) Tier III (Q6 month visits) Last [employer] PARER Agreement: 11/17/23 Assessment & Plan (07/24/2024 3:07 PM EST): Timeline: - 11/17/23: [employer]UIT [employer]GET[employer] PARER Agreement, Utox/pill count as expected - 12/13/23: NCNS to Group visit - 12/27/23: Initial Group Visit, Utox/pill count as expected - 01/31/24: Group visit, Utox/pill count as expected - 03/13/24: Group visit, Utox/pill count as expected - 05/15/24: Group visit, Utox/pill count as expected - 07/17/24: Group visit, Utox/pill count as expected Assessment & Plan (05/15/2024 6:31 PM EST): Timeline: - 11/17/23: FRUIT AND VEGETABLE PARER Agreement, Utox/pill count as expected - 12/13/23: [...] Overview (07/20/2022): ?? Followed by cardiology at [facility]. ?? Hx of reduced ejection fraction that [...] managing pain with Tylenol #4. Compliant with [employer] PARER agreement ?? Followed by [facility] pain mnmt. Assessment & Plan (07/24/2024 3:07 [...] Healthcare maintenance 07/20/2022 Overview (04/28/2023): CRC: 2016 [facility] 10 year f/u PSA: 07/2022 0.57 HIV: Negative 2019 Hepatitis: Negative HCV 2019 Declines covid vaccine Assessment & Plan (01/13/2023 10:32 AM EDT): - Will request [facility] colonoscopy records Carpal tunnel syndrome on both sides 07/20/2022 Overview (07/20/2022): ?? EMG 12/2021-bilateral moderate-severe ulnar and median neuropathy and bilateral anahy guber anastamosis ?? Seen by [facility] Dr. Nixon 04/2022; surgical candidate would require cardiac clearance and improved A1c Mood disorder 07/20/2022 Overview (07/20/2022): ?? Seroquel 50mg XR ?? Celexa 30mg ?? Nightly ambien ?? Declines therapy referral Assessment & Plan (04/28/2023 1:35 PM EST): ?? PHQ-9 elevated (24). Denies SI or thoughts of self harm ?? Declines medication changes or referral to [facility] ?? Contact HC if sx worsen or experiencing thoughts of SI or self harm. Pt has [facility] crisis contact information Coronary arteriosclerosis 08/05/2020 Implantable cardioverter-defibrillator (ICD) in situ 09/30/2017 Essential hypertension 07/14/2017 Overview (10/15/2022): ?? Followed by [facility] cardiology ?? Hydralazine 50mg b.i.d ?? Carvediol [...] dysfunction 12/04/2015 Overview (07/20/2022): ?? Followed by [facility] urology and receives SQ testosterone Hypogonadism male 12/04/2015 Mixed hyperlipidemia 12/04/2015 Overview (10/15/2022): ?? Atorvastatin 40mg daily Assessment & Plan (10/15/2022 3:42 PM EDT): ?? Continue current regimen Old ME (myocardial infarction) 12/04/2015 Encounters Date Type Department Care Team Description 09/14/2024 Refill [facility] [address] [place] [address] Carmen Mejia FNP Mood disorder (CMS/HCC) 09/12/2024 Refill [facility] [address] [place] [address] EchoCarmen martinez LEAD GENERATION SPECIALIST Type 2 diabetes mellitus with other specified complication, without long-term current use of insulin (CMS/HCC) 09/10/2024 Orders Only [facility] [address] [place] [address] EchoCarmen martinez FNP 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) (Primary Dx) 09/10/2024 Refill [facility] [address] [place] [address] Elaina Valdivia MD 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) 08/27/2024 Refill [facility] [address] [place] [address] EchoCarmen martinez, LEAD GENERATION SPECIALIST Nontraumatic incomplete tear of rotator cuff, unspecified laterality 08/22/2024 Refill [facility] [address] [place] [address] EchoCarmen, LEAD GENERATION SPECIALIST Primary insomnia 08/20/2024 Refill [facility] [address] [place] [address] Carmen Mejia LEAD GENERATION SPECIALIST 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) 08/12/2024 Refill [facility] [address] [place] [address] Carmen Mejia FNP Moderate persistent asthma without complication 08/03/2024 9:15 AM EST Office Visit [facility] [address] [place] [address] Carmen Mejia LEAD GENERATION SPECIALIST 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) (Primary Dx); Cardiomyopathy, unspecified type (CMS/HCC); Dysphagia, unspecified type; Dietary counseling; Exercise counseling; Class 1 obesity due to excess calories with serious comorbidity and body mass index (BMI) of 33.0 to 33.9 in adult 08/03/2024 Travel 07/30/2024 Refill [facility] [address] [place], [place] [phone] Carmen Mejia FNP Moderate persistent asthma without complication; Nontraumatic incomplete tear of rotator cuff, unspecified laterality 07/23/2024 Patient Outreach [facility] [address] [place] [address] Carmen Mejia LEAD GENERATION SPECIALIST Pre-visit Planning ((Unable to reach for PVP screening, LVM)) 07/17/2024 11:00 AM EST Office Visit [facility] [address] [place] [address] Melani Haider FNP Traumatic incomplete tear of left rotator cuff, subsequent encounter (Primary Dx); Long-term current use of opiate analgesic 07/17/2024 Travel 06/29/2024 Telephone [facility] [address] [place] [address] Carmen Mejia FNP Med Refill 06/28/2024 Refill [facility] [address] [place], [place] [phone] EchoCarmen LEAD GENERATION SPECIALIST Primary insomnia 06/28/2024 Refill [facility] [address] [place], [place] [phone] RobertoCarmen [facility] Nontraumatic incomplete tear of rotator cuff, unspecified laterality from Last 3 Months Immunizations Name Administration [...] the past 12 months, has t he [employer], gas, oil or water compropago threatened to shut off services in your [...] Description 09/25/2024 11:00 AM EDT Office Visit [facility] [address] [place] [phone] 11/05/2024 9:00 AM EDT Office Visit [facility] [address] [place] [phone] [address] Health Maintenance Due Date Last Done Comments [...] 6.0 % Blood 08/03/2024 9:13 AM EST [facility] LEAD GENERATION SPECIALIST POINT OF CARE TEST ENTER/EDIT ORDERABLES Final Result * POCT Glucose (08/03/2024 9:13 AM EST) Glucose Blood, POC 167 60 - 200 mg/dL Blood Capillary blood specimen / Unknown 08/03/2024 9:13 AM EST [facility] POINT OF CARE TEST ENTER/EDIT ORDERABLES Final Result * POCT KINA-14 Urine Drug Screen (07/17/2024 2:07 PM EST) Opiate Screen, Urine Positive Urine Urine specimen obtained by clean catch procedure / Unknown 07/17/2024 2:07 PM EST Michelle Peters RN - 07/17/2024 2:07 PM EST UTOX cup Lot#[id number] Exp. 03/14/26 Internal Pass Control Melanisarthak Eppersontamara [facility] POINT OF CARE TEST ENTER/EDIT ORDERABLES Final Result * (ABNORMAL) Albumin, Random Urine W/Creatinine (08/31/2023 8:39 AM EDT) Creatinine, Urine 97.43 mg/dL [facility] Microalbumin Urine 122.0 mg/L H [facility] Microalbum Creatinine Ratio Ur 125.2(H) <30 ug/mg cr [facility] Comment:Albumin/Creatinine R atio Reference Ranges: Normal: < 30 ug/mg creatinine Microalbuminuria: 30 - 300 ug/mg creatinineClinical Albuminuria: > 300 ug/mg creatinine 08/31/2023 8:39 AM EDT 08/31/2023 11:26 AM EDT [facility] URINE ORDERABLES Final Re sult [facility] [address] [place] [address] [phone] * Lipid Panel, Standard (07/20/2023 9:32 AM EST) Triglycerides 71 <150 mg/dL [facility] Comment:Desirable Triglyceri de: less than 150 mg/dLBorderline High Triglyceride 150-199 mg/dLHigh Triglyceride: 200-499 mg/dLVery High Triglyceride: greater than or equal to 5OO mg/dL Cholesterol 127 <200 mg/dL [facility] Comment:Desirable Cholestero l: less than 200 mg/dLBorderline High Cholesterol: 200-239 mg/dLHigh Cholesterol: greater than 239 mg/dL LDL Cholesterol Calculated 64 <100 mg/dL [facility] Comment:Desirable LDL: less than 100 mg/dLNear Optimal/Above Optimal LDL: 110- 129 mg/dLBorderline High LDL: 130-159 mg/dLHigh LDL: 160-189 mg/dLVery High LDL: greater than or equal to 190 mg/dL HDL Cholesterol 49 >40 mg/dL [facility] Comment:Desirable HDL: great er than 40 mg/dL Note: This HDL assay may give artificially low results in patients with liver disease. Blood Venous blood specimen / Unknown 07/20/2023 9:32 AM EST 07/20/2023 11:47 AM EST [facility] BLOOD ORDERABLES Final Re sult [facility] [address] [place] [address] [phone] * HEPATITIS C AB W/REFL TO HCV RNA, QN, PCR (02/27/2020 9:28 AM EDT) HEPATITIS C ANTIBODY NON-REACT LAYNE NON-REACT LAYNE [facility] INDEX 0.02 <1.00 [facility] Comment: ?? HCV antibody was non-reactive. There is no laboratory ?? evidence of HCV infection. ?? In most cases, no further action is required. However, if recent HCV exposure is suspected, a test for HCV RNA (test code 89036) is suggested. ?? For additional information please refer to http://education.YaBattle/faq/DBX13j4 (This link is being provided for informational/ educational purposes only.) ?? 02/27/2020 9:28 AM EDT Marcos Ferrole LEAD GENERATION SPECIALIST HISTORICAL/NON ORDERABLE LA BS Final Result Performing Organization Address [facility] Co de Phone Number [facility] [address] * HIV 1/2 ANTIGEN/ANTIBODY,FOURTH GENERATION W/RFL (02/27/2020 9:28 AM EDT) HIV-1/2 ANTIGEN AND ANTIBODIES, 4TH GENERATION W/ REFLEX NON-REACT LAYNE NON-REACT LAYNE [facility] Comment: HIV-1 antigen and HIV-1/HIV-2 [...] ? For additional information please refer to http://education.YaBattle/faq/BUM114 (This link is being provided for informational/ educational purposes only.) ? The performance of this assay has not been clinically validated in patients less than 2 years old. ?? 02/27/2020 9:28 AM EDT Marcos Robles LEAD GENERATION SPECIALIST LAB BLOOD ORDERABLES Final Result Performing Organization Address [facility] de Phone Number [facility] [address] * (ABNORMAL) Colonoscopy (06/20/2015) Colonoscopy Abnormal( A) Normal Comment:polyps-5 year follow up Historical Provider MD HEALTH MAINTENANCE Final Result from Last 3 Months or Most Recently Relevant to Health Maintenance Insurance Care Teams Asbestos Brake Lining Finisher Relationship Specialty Start Date End Date Carmen Mejia FNP [address] [place] [phone] PCP - General Family Medicine 03/18/21
--- OUTSIDE RECORDS SUMMARY | 2024-09-21 12:11 | XMS_ITS | Encounter Summary ---
Author Organization [employer] Address [address] [facility] [address] [place] [address] Care Team Providers Care Hat Measurer Name Role Phone Robetro [facility] Primary Care Provider [phone] Reason for Visit * Reason Comments Med Refill Encounter Details Date Type Department Care Team (Late st Contact Info) Description 01/02/2024 Refill [facility] [address] [place], [place] [phone] Roberto [facility] [address] [place] [address] Nontraumatic incomplete tear of rotator cuff, unspecified [...] Office Visit [facility] [address] [place] [phone] 11/05/2024 9:00 AM EDT Office Visit [address] [address] Carmen Mejia FNP [address] [place] [phone] documented as of this encounter Visit Diagnoses Diagnosis Nontraumatic incomplete tear of rotator cuff, unspecified laterality documented in this encounter Additional Health Concerns Assessment Noted Time PHQ-9 Depression Total Score: 0 11/09/19 24 9:34 AM EDT documented as of this encounter Care Teams Hat Measurer Relationship Specialty Start Date End Date Carmen Mejia FNP [address] [place] [phone] PCP - General Family Medicine 03/18/21 documented as of this encounter
--- OUTSIDE RECORDS SUMMARY | 2024-09-21 12:11 | XMS_ITS | Encounter Summary ---
Author Organization [employer] Address [address] [place] [address] [address] [place] [address] Care Team Providers Care Stock Buyer Name Role Phone Carmen Mejia DIRECTOR DATA MANAGEMENT Primary Care Provider [phone] Encounter Details Date Type Department Care Team (Late st Contact Info) Description 06/11/2022 Orders Only [facility] [address] [place] [address] Ritika Mcgovern LPN Social History Tobacco Use [...] 09/25/2024 11:00 AM EDT Office Visit [facility] [address] [place] [phone] 11/05/2024 9:00 AM EDT Office Visit [facility] [address] [place] [phone] Carmen Mejia FNP [address] [place] [address] documented as of this encounter Visit Diagnoses Not on filedocumented in this encounter Care Teams Stock Buyer Relationship Specialty Start Date End Date Carmen Mejia FNP [address] [place] [phone] PCP - General Family Medicine 03/18/21 documented as of this encounter
== END 2024-09-21 10:38 | disposition home or self-care (01) ==
LOC: HO.BBR 10:37
PROVIDERS: PCP Registered Nurse; Visit Provider Urology
DX: R71.8 Other abnormality of red blood cells (principal); Z79.899 Other long term (current) drug therapy
CPT/HCPCS: 85014; 85018; 99195

== ENCOUNTER → 2024-10-02 23:59 | Outpatient (BNV) | payer OTHER, SELFPAY ==
--- NOTE | 2024-10-05 11:46 | MHC.OFFVIS ---
Intake Visit Reasons: Remote HF monitoring- [employer] Allergies avocado [AVOCADO] Allergy (Severe, Verified 08/14/24 10:25) HIVES/SOB lisinopril Allergy (Severe, Verified 08/14/24 10:25) Unknown passion fruit [PASSION FRUIT] Allergy (Severe, Verified 08/14/24 10:25) HIVES/SOB sacubitril [Entresto] Allergy (Severe, Verified 08/14/24 10:25) Unknown valsartan [Entresto] Allergy (Severe, Verified 08/14/24 10:25) Unknown soy [SOY] Allergy (Unknown, Verified 08/14/24 10:25) SWELLING acetaminophen [From Percocet] Adverse Reaction (Verified 08/14/24 10:25) Gastrointestinal Upset oxycodone [From Percocet] Adverse Reaction (Verified 08/14/24 10:25) Gastrointestinal Upset PFSH Medical History HFrEF (heart failure with reduced ejection fraction) ICD (implantable cardioverter-defibrillator) in place Nonischemic cardiomyopathy HTN (hypertension) Diabetes mellitus CAD (coronary artery disease) Surgical History History of carpal tunnel surgery H/O colonoscopy History of cardiac cath (~2017) Family History Father No problems noted. Mother No problems noted. Social History Household Members: Spouse Alcohol intake: former Patient Tobacco Use Status: Former Tobacco user Second Hand Smoke Exposure: No Office Procedures Cardiac Device Check Cardiac Device Check Details: Remote heart failure report generated 10/02/2024. Heart failure parameters are stable [id number] Cardiac Device Interrogation, cardio physiologic monitor Procedure code (CPT) selection complete Assessment & Plan Assessment & Plan (1) ICD (implantable cardioverter-defibrillator) in place: Comment: implanted 2018-[employer] Code(s): Z95.810 - Presence of automatic (implantable) cardiac defibrillator Category: Medical Plan: See above Coding Level of Care Code Procedure Only Diagnoses ICD (implantable cardioverter-defibrillator) in place Z95.810 CPT Codes Cardiac Device Check - Cardiac Device 15: [id number] Cardiac Device Interrogation, cardio physiologic monitor ([id number])
== END ==
PROVIDERS: PCP Registered Nurse; Visit Provider Internal Medicine Cardiovascular Disease
DX: Z45.02 Encounter for adjustment and management of automatic implantable cardiac defibrillator (principal)
CPT/HCPCS: 93297

== ENCOUNTER → 2024-10-19 23:59 | Outpatient (BNV) | payer OTHER, SELFPAY ==
--- NOTE | 2024-10-22 14:50 | MHC.OFFVIS ---
Intake Visit Reasons: Remote HF monitoring- [employer] Allergies avocado [AVOCADO] Allergy (Severe, Verified 08/14/24 10:25) HIVES/SOB lisinopril Allergy (Severe, Verified 08/14/24 10:25) Unknown passion fruit [PASSION FRUIT] Allergy (Severe, Verified 08/14/24 10:25) HIVES/SOB sacubitril [Entresto] Allergy (Severe, Verified 08/14/24 10:25) Unknown valsartan [Entresto] Allergy (Severe, Verified 08/14/24 10:25) Unknown soy [SOY] Allergy (Unknown, Verified 08/14/24 10:25) SWELLING acetaminophen [From Percocet] Adverse Reaction (Verified 08/14/24 10:25) Gastrointestinal Upset oxycodone [From Percocet] Adverse Reaction (Verified 08/14/24 10:25) Gastrointestinal Upset PFSH Medical History HFrEF (heart failure with reduced ejection fraction) ICD (implantable cardioverter-defibrillator) in place Nonischemic cardiomyopathy HTN (hypertension) Diabetes mellitus CAD (coronary artery disease) Surgical History History of carpal tunnel surgery H/O colonoscopy History of cardiac cath (~2017) Family History Father No problems noted. Mother No problems noted. Social History Household Members: Spouse Alcohol intake: former Patient Tobacco Use Status: Former Tobacco user Second Hand Smoke Exposure: No Office Procedures Cardiac Device Check Cardiac Device Check Details: Remote ICD report generated 10/19/2024. ICD function is adequate [id number] Cardiac Interrogation, implant defibrillator w/interim Procedure code (CPT) selection complete Assessment & Plan Assessment & Plan (1) ICD (implantable cardioverter-defibrillator) in place: Comment: implanted 2018-[employer] Code(s): Z95.810 - Presence of automatic (implantable) cardiac defibrillator Category: Medical Plan: See above Coding Level of Care Code Procedure Only Diagnoses ICD (implantable cardioverter-defibrillator) in place Z95.810 CPT Codes Cardiac Device Check - Cardiac Device 13: [id number] Cardiac Interrogation, implant defibrillator w/interim ([id number])
== END ==
PROVIDERS: PCP Registered Nurse; Visit Provider Internal Medicine Cardiovascular Disease
DX: Z45.02 Encounter for adjustment and management of automatic implantable cardiac defibrillator (principal)
CPT/HCPCS: 93295

== ENCOUNTER 2024-10-25 10:51 | Outpatient (REF) | payer OTHER, SELFPAY ==
--- OUTSIDE RECORDS SUMMARY | 2024-10-25 12:22 | XMS_ITS | Clinical Summary ---
Author Organization [employer] Address [address] [facility] 7t [place] [address] Care Team Providers Care Supervisor Cab Name Role Phone Roberto [facility] Primary Care Provider [phone] Allergies Active Allergy Reactions Criticality Noted Date Comments Jamie Inhibitors High 11/25/2021 Other reaction(s): Unknown Avocado High 11/18/2022 Other reaction(s): HIVES/SOB Passion Fruit Flavoring Agent (Non-Screening) High 11/18/2022 Other reaction(s): HIVES/SOB Penicillin G 11/25/2021 Other reaction(s): Unknown Sacubitril High 11/18/2022 Other reaction(s): Unknown Soy Allergy (Obsolete) 11/18/2022 Other reaction(s): SWELLING Valsartan High 11/18/2022 Other reaction(s): Unknown Medications GaviLAX 17 GM/SCOOP powderIndications :Drug-induced constipation TAKE 17 GM MIXED IN 8 OUNCES OF WATER ONCE DAILY NEEDED FOR CONSTIPATION 510 g 3 023 Active testosterone cypionate (Depo-Testosteron e) 200 MG/ML injection INJECT 0.5ML 100MG) SUBCUTANEOUSLY ONCE A WEEK 023 Active hydrALAZINE (Apresoline) 50 MG tablet TAKE 1 TABLET BY MOUTH TWICE DAILY IN THE MORNING AND AT BEDTIME 023 Active gabapentin (Neurontin) 300 MG capsule Take by mouth at bedtime. 023 Active furosemide (Lasix) 40 MG tablet TAKE 1 TABLET BY MOUTH EVERY MORNING (CALL [phone] FOR APPOINTMENT (Dr. Pillai)) 023 Active carvedilol (Coreg) 25 MG tablet TAKE 1 TABLET BY MOUTH TWICE DAILY IN THE MORNING AND IN THE EVENING WITH FOOD 023 Active atorvastatin (Lipitor) 40 MG tablet Take 40 mg by mouth at bedtime. 023 Active Aspirin Low Dose 81 MG EC tablet TAKE 1 TABLET BY MOUTH EVERY MORNING (CALL [phone] FOR APPOINTMENT (Dr. Pillai )) 023 Active albuterol (2.5 MG/3ML) 0.083% nebulizer solutionIndicatio ns:Moderate persistent asthma without complication Take 3 mL (2.5 mg) by nebulization every 4 (four) hours if needed for wheezing. 75 mL 3 023 Active naloxone (Narcan) 4 mg/0.1 mL nasal sprayIndications: Other chronic pain Administer 1 spray (4 mg) into affected nostril(s) if needed for opioid reversal. May repeat every 2-3 minutes if needed, alternating nostrils, until medical assistance becomes available. 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 30 tablet 11 024 2024 Active budesonide-formot jaime (Symbicort) 160-4.5 MCG/ACT inhalerIndication s:Chronic obstructive pulmonary disease, unspecified COPD type (CMS/HCC) INHALE 2 PUFFS TWICE DAILY IN THE MORNING AND IN THE EVENING. RINSE MOUTH AFTER USING. 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 2 mL 3 025 Active omeprazole (PriLOSEC) [address] capsuleIndication s:Dysphagia, unspecified type Take 1 capsule (20 mg) by mouth 2 times daily. 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) TEST BLOOD SUGAR 3 TIMES DAILY 100 strip Active TRUEplus Lancets 33G miscIndications:D iabetes mellitus type 2 with neurological manifestations (CMS/HCC) TEST BLOOD SUGAR 3 TIMES DAILY 100 each 025 Active metFORMIN (Glucophage) 1000 MG tabletIndications :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) TAKE 1 TABLET BY MOUTH TWICE DAILY IN THE MORNING AND IN THE EVENING WITH MEALS 180 tablet 025 Active Alcohol Swabs (Alcohol Prep) padsIndications:D iabetes mellitus type 2 with neurological manifestations (CMS/HCC) Use one pad each to prep skin prior to injection as directed 100 each Active Lancets 33G miscIndications:D iabetes mellitus type 2 with neurological manifestations (CMS/HCC) Use as directed to check blood sugar four times daily 100 each 025 Active Blood Glucose Monitoring Suppl (GNP Easy Touch Glucose Meter) deviceIndications :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) Use as directed to check blood sugar four times daily 1 each 025 Active empagliflozin (Jardiance) 25 MGIndications:Typ e 2 diabetes mellitus with other specified complication, without long-term current use of insulin (CMS/HCC) TAKE 1 TABLET BY MOUTH EVERY MORNING 30 tablet 025 Active QUEtiapine (SEROquel) 50 MG tabletIndications :Type 2 diabetes mellitus with other specified complication, without long-term current use of insulin (CMS/HCC) TAKE 2 TABLETS BY MOUTH EVERY DAY AT BEDTIME 60 tablet 025 Active citalopram (CeleXA) 20 MG tabletIndications :Mood disorder (CMS/HCC) TAKE 1 TABLET BY MOUTH EVERY MORNING 30 tablet 025 Active citalopram (CeleXA) 10 MG tabletIndications :Mood disorder (CMS/HCC) Take 1 tablet (10 mg) by mouth in the morning. 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 Do not start before August 31, 2024. 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) Use as directed to check blood sugar four times daily 100 each 12 025 2024 Discontinued Active Problems Problem Noted Date Diagnosed Date Long-term current use of opiate analgesic 2023 Overview (09/25/2024): Medication: Tylenol w/ Codeine #4 (300-60mg) Q8H PRN Indication: Rotator cuff tear (not ideal surgical candidate) Tier III (Q6 month visits) Last LEAD RAMP AGENT Agreement: 09/25/24 Assessment & Plan (09/25/2024 2:43 PM EDT): Timeline: - 11/17/23: LEAD RAMP AGENT Agreement, Utox/pill count as expected - 12/13/23: NCNS to Group visit - 12/27/23: Initial Group Visit, Utox/pill count as expected - 01/31/24: Group visit, Utox/pill count as expected - 03/13/24: Group visit, Utox/pill count as expected - 05/15/24: Group visit, Utox/pill count as expected - 07/17/24: Group visit, Utox/pill count as expected - 09/25/24: Group Visit, utox/pill count as expected Assessment & Plan (07/24/2024 3:07 PM EST): Timeline: - 11/17/23: LEAD RAMP AGENT Agreement, Utox/pill count as expected - 12/13/23: NCNS to Group visit - 12/27/23: Initial Group Visit, Utox/pill count as expected - 01/31/24: Group visit, Utox/pill count as expected - 03/13/24: Group visit, Utox/pill count as expected - 05/15/24: Group visit, Utox/pill count as expected - 07/17/24: Group visit, Utox/pill count as expected Assessment & Plan (05/15/2024 6:31 PM EST): Timeline: - 11/17/23: LEAD RAMP AGENT Agreement, Utox/pill count as expected - 12/13/23: [...] Overview (07/20/2022): ?? [place] [facility] ?? Hx of reduced ejection fraction that [...] managing pain with Tylenol #4. Compliant with LEAD RAMP AGENT agreement ?? Followed by [facility] [place] mnmt. Assessment & Plan (09/25/2024 2:43 PM EDT): -Good engagement and participation with Group Medical Visit model -Encouraged multifactorial approach to pain control including pharm and non- pharm modalities -UTOX and Pill count as expected Assessment & Plan (07/24/2024 3:07 PM EST): [...] Healthcare maintenance 07/20/2022 Overview (04/28/2023): CRC: 2016 [facility] 10 year f/u PSA: 07/2022 0.57 HIV: Negative 2019 Hepatitis: Negative HCV 2020 Declines covid vaccine Assessment & Plan (01/13/2023 10:32 AM EDT): - Will request [facility] colon[place] records Carpal tunnel syndrome on both sides 07/20/2022 Overview (07/20/2022): ?? EMG 12/2021-bilateral moderate-severe ulnar and median neuropathy and bilateral anahy guber anastamosis ?? Seen by [facility] [place]. Nixon 04/2022; surgical candidate would require [...] of SI or self harm. Pt has N crisis contact information Coronary arteriosclerosis 08/05/2020 Implantable cardioverter-defibrillator (ICD) in situ 09/30/2017 Essential hypertension 07/14/2017 Overview (10/15/2022): ?? Followed by [facility] cardiology ?? Hydralazine 50mg b.i.d ?? Carvediol [...] dysfunction 12/04/2015 Overview (07/20/2022): ?? Followed by [facility] urology and receives SQ testosterone Hypogonadism male 12/04/2015 Mixed hyperlipidemia 12/04/2015 Overview (10/15/2022): ?? Atorvastatin 40mg daily Assessment & Plan (10/15/2022 3:42 PM EDT): ?? 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) 09/27/2024 Refill [facility] [address] [place] [address] Carmen Mejia, SLAGGER Nontraumatic incomplete tear of rotator cuff, unspecified laterality 09/25/2024 11:00 AM EDT Office Visit [facility] [address] [place] [address] Melani Haider, SLAGGER Traumatic incomplete tear of left rotator cuff, subsequent encounter (Primary Dx); Long-term current use of opiate analgesic 09/25/2024 Travel 09/14/2024 Refill [facility] [address] [place] [address] Carmen Mejia, SLAGGER Mood disorder (CMS/HCC) 09/12/2024 Refill [facility] [address] [place] [address] Carmen Mejia, STEVEN Type 2 diabetes mellitus with other specified complication, without long-term current use of insulin (CMS/HCC) 09/10/2024 Orders Only [facility] [address] [place] [address] Carmen Mejia, STEVEN 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) (Primary Dx); Cardiomyopathy, unspecified type (CMS/HCC); Dysphagia, unspecified type; Dietary counseling; Exercise counseling; Class 1 obesity due to excess calories with serious comorbidity and body mass index (BMI) of 33.0 to 33.9 in adult 08/03/2024 Travel 07/30/2024 Refill [facility] [address] [place] [address] [facility] Moderate persistent asthma without complication; Nontraumatic incomplete [...] Care Team (Late st Contact Info) Description 11/05/2024 9:00 AM EDT Office Visit [facility] [address] [place] [phone] [facility], [facility] [address] [place] [address] 11/27/2024 11:00 AM EDT Office Visit [address] [address] Health Maintenance Due Date Last Done Comments [...] Comments POCT KINA-14 URINE DRUG SCREEN Routine 09/25/2024 1:40 PM EDT Long-term current use of opiate analgesic Traumatic incomplete tear of left rotator cuff, subsequent encounter POCT GLUCOSE Routine 08/03/2024 9:13 AM EST [...] Results * POCT KINA-14 Urine Drug Screen (09/25/2024 1:40 PM EDT) Opiate Screen, Urine Positive Urine Urine specimen obtained by clean catch procedure / Unknown 09/25/2024 1:40 PM EDT Narrative Ligia Titus RN - 09/25/2024 1:40 PM EDT .UTOX cup Lot#[id number] Exp. 02/06/26 Internal Pass Control Melani Haider SLAGGER POINT OF CARE TEST ENTER/EDIT ORDERABLES Final Result * (ABNORMAL) POCT HGB A1C (08/03/2024 9:13 AM EST) Hemoglobin A1C 8.1(A) 4.0 - 6.0 % Blood 08/03/2024 9:13 AM EST [facility] POINT OF CARE TEST ENTER/EDIT ORDERABLES Final Result * POCT Glucose (08/03/2024 9:13 AM EST) Glucose Blood, POC 167 60 - 200 mg/dL Blood Capillary blood specimen / Unknown 08/03/2024 9:13 AM EST [facility] POINT OF CARE TEST ENTER/EDIT ORDERABLES Final Result * (ABNORMAL) Albumin, Random Urine W/Creatinine (08/31/2023 8:39 AM EDT) Creatinine, Urine 97.43 mg/dL [facility] Microalbumin Urine 122.0 mg/L [facility] Microalbum Creatinine Ratio Ur 125.2(H) <30 ug/mg cr [facility] Comment:Albumin/Creatinine R atio Reference Ranges: Normal: < 30 ug/mg creatinine Microalbuminuria: 30 - 300 ug/mg creatinineClinical Albuminuria: > 300 ug/mg creatinine 08/31/2023 8:39 AM EDT 08/31/2023 11:26 AM EDT [facility] LAB URINE ORDERABLES Final Re sult [facility] [address] [place] [phone] * Lipid Panel, Standard (07/20/2023 9:32 AM EST) Triglycerides 71 <150 mg/dL [facility] Comment:Desirable Triglyceri de: less than 150 mg/dLBorderline High Triglyceride 150-199 mg/dLHigh Triglyceride: 200-499 mg/dLVery High Triglyceride: greater than or equal to 5OO mg/dL Cholesterol 127 <200 mg/dL [facility] Comment:Desirable Cholestero l: less than 200 mg/dLBorderline High Cholesterol: 200-239 mg/dLHigh Cholesterol: greater than 239 mg/dL LDL Cholesterol Calculated 64 <100 mg/dL [facility] Comment:Desirable LDL: less than 100 mg/dLNear Optimal/Above Optimal LDL: 110- 129 mg/dLBorderline High LDL: 130-159 mg/dLHigh LDL: 160-189 mg/dLVery High LDL: greater than or equal to 190 mg/dL HDL Cholesterol 49 >40 mg/dL [facility] Comment:Desirable HDL: great er than 40 mg/dL Note: This HDL assay may give artificially low results in patients with liver disease. Blood Venous blood specimen / Unknown 07/20/2023 9:32 AM EST 07/20/2023 11:47 AM EST [facility] SLAGGER LAB BLOOD ORDERABLES Final Re sult Performing Organization Address City/[facility]/ZIP Co de Phone Number [facility] [address] [place] [phone] * HEPATITIS C AB W/REFL TO HCV RNA, QN, PCR (02/27/2020 9:28 AM EDT) HEPATITIS C ANTIBODY NON-REACT LAYNE NON-REACT LAYNE [facility] INDEX 0.02 <1.00 [facility] Comment: ?? HCV antibody was non-reactive. There is no laboratory ?? evidence of HCV infection. ?? In most cases, no further action is required. However, if recent HCV exposure is suspected, a test for HCV RNA (test code 65247) is suggested. ?? For additional information please refer to http://education.Shopow.enModus/faq/OAI78r9 (This link is being provided for informational/ educational purposes only.) ?? 02/27/2020 9:28 AM EDT Marcos Robles SLAGGER HISTORICAL/NON ORDERABLE LA BS Final Result [facility] [address] * HIV 1/2 ANTIGEN/ANTIBODY,FOURTH GENERATION W/RFL (02/27/2020 9:28 AM EDT) HIV-1/2 ANTIGEN AND ANTIBODIES, 4TH GENERATION W/ REFLEX NON-REACT LAYNE NON-REACT LAYNE [facility] Comment: HIV-1 antigen and HIV-1/HIV-2 [...] ? For additional information please refer to http://IPLogic.RentBits/faq/RIX228 (This link is being provided for informational/ educational purposes only.) ? The performance of this assay has not been clinically validated in patients less than 2 years old. ?? 02/27/2020 9:28 AM EDT Marcos Robles SLAGGER LAB BLOOD ORDERABLES Final Result Performing Organization Address City/State/[facility] Co de Phone Number [facility] [address] * (ABNORMAL) Colonoscopy (06/20/2015) Colonoscopy Abnormal( A) Normal Comment:polyps-5 year follow up Historical Provider HEALTH MAINTENANCE Final Result from Last 3 Months or Most Recently Relevant to Health Maintenance Insurance [facility] ONE CARE < 65 DENTAL [facility] Care Teams Supervisor Cab Relationship Specialty Start Date End Date Carmen Mejia FNP [address] [place] [phone] PCP - General Family Medicine 03/18/21
--- OUTSIDE RECORDS SUMMARY | 2024-10-25 12:22 | XMS_ITS | Encounter Summary ---
Author Organization [employer] Address [address] [facility] [address]t [place] [address] Care Team Providers Care Plate Grainer Name Role Phone Carmen Mejia [facility] Primary Care Provider [phone] Encounter Details Date Type Department Care Team (Late st Contact Info) Description 05/05/2023 Abstract [facility] [address] [place] [address] Dia Gibson Social History Tobacco Use Types [...] Description 11/05/2024 9:00 AM EDT Office Visit [facility] [address] [place] [address] Carmen Mejia [address] [address] 11/27/2024 11:00 AM EDT Office Visit [address] [address] documented as of this encounter Visit Diagnoses Not on filedocumented in this encounter Additional Health Concerns Assessment Noted Time PHQ-9 Depression Total Score: 24 023 9:04 AM EDT documented as of this encounter Care Teams Plate Grainer Relationship Specialty Start Date End Date Carmen Mejia FNP [address] [place] [phone] PCP - General Family Medicine 03/18/21 documented as of this encounter
--- OUTSIDE RECORDS SUMMARY | 2024-10-25 12:22 | XMS_ITS | Encounter Summary ---
Author Organization [employer] Address [address] [facility] 7t [place] [address] Care Team Providers Care Internal Combustion Engine Subassembler Name Role Phone Carmen Mejia [facility] Primary Care Provider [phone] Encounter Details Date Type Department Care Team (Late st Contact Info) Description 06/11/2022 Orders Only [facility] [address] [place] [address] Ritika Mcgovern LPN Social History Tobacco Use [...] Description 11/05/2024 9:00 AM EDT Office Visit [facility] [address] [place] [address] Carmen Mejia FNP [address] [place] [address] 11/27/2024 11:00 AM EDT Office Visit [facility] [address] [place] [address] documented as of this encounter Visit Diagnoses Not on filedocumented in this encounter Care Teams Internal Combustion Engine Subassembler Relationship Specialty Start Date End Date Carmen Mejia FNP [address] [place] [phone] PCP - General Family Medicine 03/18/21 documented as of this encounter
--- OUTSIDE RECORDS SUMMARY | 2024-10-25 12:22 | XMS_ITS | Encounter Summary ---
Author Organization [employer] Address [address] [facility] 7t [place] [address] Care Team Providers Care Certified Health Education Specialist Name Role Phone Carmen Mejia [facility] Primary Care Provider [phone] Encounter Details Date Type Department Care Team ([facility] Contact Info) Description 10/15/2022 Orders Only [facility] [address] [place], [place] [phone] Ritika Mcgovern LPN Social History Tobacco Use [...] Department Care Team (Late Contact Info) Description 11/05/2024 9:00 AM EDT Office Visit [facility] [address] [place] [phone] Carmen Mejia [facility] [address] [place], [place] [phone] 11/27/2024 11:00 AM EDT Office Visit [address] [address] documented as of this encounter Visit Diagnoses Not on filedocumented in this encounter Additional Health Concerns Assessment Noted Time PHQ-9 Depression Total Score: 0 10/15/19 23 8:58 AM EDT documented as of this encounter Care Teams Certified Health Education Specialist Relationship Specialty Start Date End Date Carmen Mejia FNP [address] [place] [phone] PCP - General Family Medicine 03/18/21 documented as of this encounter
--- OUTSIDE RECORDS SUMMARY | 2024-10-25 12:22 | XMS_ITS | Encounter Summary ---
Author Organization [employer] Address [address] [facility] 7t [place] [address] Care Team Providers Care Net Mender Name Role Phone Carmen Mejia [facility] Primary Care Provider [phone] Encounter Details Date Type Department Care Team (Late Contact Info) Description 03/07/2023 Orders Only [facility] [address] [place], [place] [phone] Shannon Sargent LPN Social History Tobacco Use [...] Description 11/05/2024 9:00 AM EDT Office Visit [facility] [address] [place] [address] [facility] [address] [place] [address] 11/27/2024 11:00 AM EDT Office Visit [facility] [address] [place] [address] documented as of this encounter Visit Diagnoses Not on filedocumented in this encounter Additional Health Concerns Assessment Noted Time PHQ-9 Depression Total Score: 0 01/14/20 23 9:12 AM EDT documented as of this encounter Care Teams Net Mender Relationship Specialty Start Date End Date RobertoCarmen martinez FNP [address] [place] [phone] PCP - General Family Medicine 03/18/21 documented as of this encounter
--- OUTSIDE RECORDS SUMMARY | 2024-10-25 12:22 | XMS_ITS | Encounter Summary ---
Author Organization [employer] Address [address] [facility] [address]t [place] [address] Care Team Providers Care Deck Worker Name Role Phone Carmen Mejia [facility] Primary Care Provider [phone] Reason for Visit * Reason Comments Med Refill Encounter Details Date Type Department Care Team (Late st Contact Info) Description 10/12/2023 Refill [facility] [address] [place], [place] [phone] Carmen Mejia [facility] [address] [place] [address] Primary insomnia Social History Tobacco Use Types [...] Description 11/05/2024 9:00 AM EDT Office Visit [facility] [address] [place] [address] Carmen Mejia FNP [address] [place] [address] 11/27/2024 11:00 AM EDT Office Visit [address] [address] documented as of this encounter Visit Diagnoses Diagnosis Primary insomnia Persistent disorder of initiating or maintaining sleep documented in this encounter Additional Health Concerns Assessment Noted Time PHQ-9 Depression Total Score: 24 023 9:04 AM EDT documented as of this encounter Care Teams Deck Worker Relationship Specialty Start Date End Date Carmen Mejia FNP [address] [place] [phone] PCP - General Family Medicine 03/18/21 documented as of this encounter
--- OUTSIDE RECORDS SUMMARY | 2024-10-25 12:22 | XMS_ITS | Encounter Summary ---
Author Organization [employer] Address [address] [facility] 7t [place] [address] Care Team Providers Care Tool Distributor Name Role Phone Carmen Mejia MIS SPECIALIST Primary Care Provider [phone] Reason for Visit * Reason Onset Date Comments denture appt PA 11/02/2022 Encounter Details Date Type Department Care Team (Late st Contact Info) Description 11/02/[address] [facility] ADULT DENTAL [address] [place] [address] Bal Aponte, DMD [address] [place] [address] denture appt PA Social History Tobacco Use [...] 11:09 AM EDT Rep from [facility] called in checking in on the [...] Description 11/05/2024 9:00 AM EDT Office Visit [facility] MEDICINE [address] [place] [address] Carmen Mejia FNP 230 [place] [address] 11/27/2024 11:00 AM EDT Office Visit [facility] [address] [place] [address] documented as of this encounter Visit Diagnoses Not on filedocumented in this encounter Additional Health Concerns Assessment Noted Time PHQ-9 Depression Total Score: 0 10/15/19 23 8:58 AM EDT documented as of this encounter Care Teams Tool Distributor Relationship Specialty Start Date End Date Carmen Mejia FNP [address] [place] [address] PCP - General Family Medicine 03/18/21 documented as of this encounter
--- OUTSIDE RECORDS SUMMARY | 2024-10-25 12:22 | XMS_ITS | Encounter Summary ---
Author Organization [employer] Address 75 [facility] 7t [place] [address] Care Team Providers Care Harbor Department Manager Name Role Phone Roberto [facility] Primary Care Provider [phone] Reason for Visit * Reason Comments Med Refill Encounter Details Date Type Department Care Team (Late st Contact Info) Description 01/03/2024 Refill [facility] CHC MED & PEDS [address] [place], [place] [phone] Roberto, [facility] 230 [facility] [place] [address] Nontraumatic incomplete tear of rotator cuff, unspecified [...] Description 11/05/2024 9:00 AM EDT Office Visit [address] [address] Carmen Mejia FNP [address] [place] [address] 11/27/2024 11:00 AM EDT Office Visit [address] [address] documented as of this encounter Visit Diagnoses Diagnosis Nontraumatic incomplete tear of rotator cuff, unspecified laterality documented in this encounter Additional Health Concerns Assessment Noted Time PHQ-9 Depression Total Score: 0 11/09/19 24 9:34 AM EDT documented as of this encounter Care Teams Harbor Department Manager Relationship Specialty Start Date End Date Carmen Mejia FNP [address] [place] [address] PCP - General Family Medicine 03/18/21 documented as of this encounter
--- OUTSIDE RECORDS SUMMARY | 2024-10-25 12:22 | XMS_ITS | Encounter Summary ---
Author Organization [employer] Address 75 [facility] 7t [place] [address] Care Team Providers Care Endbander Name Role Phone Carmen Mejia BILLBOARD ERECTOR Primary Care Provider [phone] Encounter Details Date Type Department Care Team (Late Contact Info) Description 07/07/2022 Orders Only [facility] CHC MED & PEDS [address] [place] [address] Ritika Mcgovern LPN Social History Tobacco Use [...] Description 11/05/2024 9:00 AM EDT Office Visit [facility] MEDICINE [address] [place] [address] Carmen Mejia FNP 230 [place] [address] 11/27/2024 11:00 AM EDT Office Visit [facility] MEDICINE [address] [place] [address] documented as of this encounter Visit Diagnoses Not on filedocumented in this encounter Care Teams Endbander Relationship Specialty Start Date End Date Carmen Mejia FNP [address] [place] [address] [place] [address] PCP - General Family Medicine 03/18/21 documented as of this encounter
--- OUTSIDE RECORDS SUMMARY | 2024-10-25 12:22 | XMS_ITS | Encounter Summary ---
Author Organization [employer] Address 75 [facility] 7t [place] [address] Care Team Providers Care Marketing Finance Specialist Name Role Phone Roberto [facility] Primary Care Provider [phone] Reason for Visit * Reason Comments Med Refill Encounter Details Date Type Department Care Team (Late st Contact Info) Description 01/02/[address] [facility] CHC MED & PEDS [address] [place], [place] [phone] Roebrto, [facility] 230 [place] [address] Nontraumatic incomplete tear of rotator cuff, unspecified [...] Description 11/05/2024 9:00 AM EDT Office Visit [address] [address] Carmen Mejia FNP [address] [place] [address] 11/27/2024 11:00 AM EDT Office Visit [address] [address] documented as of this encounter Visit Diagnoses Diagnosis Nontraumatic incomplete tear of rotator cuff, unspecified laterality documented in this encounter Additional Health Concerns Assessment Noted Time PHQ-9 Depression Total Score: 0 11/09/19 24 9:34 AM EDT documented as of this encounter Care Teams Marketing Finance Specialist Relationship Specialty Start Date End Date Carmen Mejia FNP [address] [place] [address] PCP - General Family Medicine 03/18/21 documented as of this encounter
--- OUTSIDE RECORDS SUMMARY | 2024-10-25 12:22 | XMS_ITS | Encounter Summary ---
Author Organization [employer] Address [address] [place] [address] 7t [place] [address] Care Team Providers Care Legal Word Processor Name Role Phone [facility] Primary Care Provider [phone] Reason for Visit * Reason Comments Med Refill Encounter Details Date Type Department Care Team (Late st Contact Info) Description 11/18/2022 Refill [facility] MEDICINE 230 [place], [place] [address] [facility] 230 [place], [place] [phone] Primary insomnia; Type 2 diabetes mellitus with other specified complication, without long-term current use of insulin ([facility]) Social History Tobacco Use Types Packs/Day Years [...] Description 11/05/2024 9:00 AM EDT Office Visit [facility] MEDICINE [address] [place] [phone] [facility] 230 [place], [place] [phone] 11/27/2024 11:00 AM EDT Office Visit [facility] MEDICINE 230 [place] [address] documented as of this encounter Visit Diagnoses Diagnosis Primary insomnia Persistent disorder of initiating or maintaining sleep Type 2 diabetes mellitus with other specified complication, without long-term current use of insulin ([facility]) documented in this encounter Additional Health Concerns Assessment Noted Time PHQ-9 Depression Total Score: 0 10/15/19 23 8:58 AM EDT documented as of this encounter Care Teams Legal Word Processor Relationship Specialty Start Date End Date Carmen Mejia FNP 230 [place] [address] PCP - General Family Medicine 03/18/21 documented as of this encounter
--- OUTSIDE RECORDS SUMMARY | 2024-10-25 12:22 | XMS_ITS | Encounter Summary ---
Author Organization [employer] Address 75 [facility] 7t [place] [address] Care Team Providers Care Mathematical Physicist Name Role Phone Carmen Mejia [facility] Primary Care Provider [phone] Reason for Visit * Reason Comments Med Refill Encounter Details Date Type Department Care Team (Late st Contact Info) Description 01/08/2024 Refill [facility] MEDICINE 230 [place], [place] [phone] [facility] 230 [place] [address] Moderate persistent asthma without complication Social History [...] Description 11/05/2024 9:00 AM EDT Office Visit [facility] MEDICINE [address] [place] [address] Carmen Mejia FNP [address] [place] [address] 11/27/2024 11:00 AM EDT Office Visit [address] [address] documented as of this encounter Visit Diagnoses Diagnosis Moderate persistent asthma without complication documented in this encounter Additional Health Concerns Assessment Noted Time PHQ-9 Depression Total Score: 0 11/09/19 24 9:34 AM EDT documented as of this encounter Care Teams Mathematical Physicist Relationship Specialty Start Date End Date Carmen Mejia FNP [address] [place] [address] PCP - General Family Medicine 03/18/21 documented as of this encounter
--- OUTSIDE RECORDS SUMMARY | 2024-10-25 12:22 | XMS_ITS | Encounter Summary ---
Author Organization [employer] Address 75 [facility] 7t [place] [address] Care Team Providers Care Health Promoter Name Role Phone Carmen Mejia TRAVEL AGENT Primary Care Provider [phone] Encounter Details Date Type Department Care Team (Late st Contact Info) Description 07/08/2022 Orders Only [facility] MEDIC[facility] [address] [place] [address] Shannon Sargent LPN Social History Tobacco Use [...] Description 11/05/2024 9:00 AM EDT Office Visit [address] [address] Carmen Mejia FNP 230 [place] [address] 11/27/2024 11:00 AM EDT Office Visit [address] [address] documented as of this encounter Visit Diagnoses Not on filedocumented in this encounter Care Teams Health Promoter Relationship Specialty Start Date End Date Carmen Mejia FNP [address] [place] [address] PCP - General Family Medicine 03/18/21 documented as of this encounter
--- OUTSIDE RECORDS SUMMARY | 2024-10-25 12:22 | XMS_ITS | Encounter Summary ---
Author Organization [employer] Address 75 [facility] 7t [place] [address] Care Team Providers Care Hobber Name Role Phone Carmen Mejia [facility] Primary Care Provider [phone] Reason for Visit * Reason Comments Med Refill Encounter Details Date Type Department Care Team (Late st Contact Info) Description 11/16/2022 Refill [facility] MEDICINE 230 [place] [address] Melani Haider FNP 505 [place], [place] [phone] Other chronic pain Social History Tobacco Use [...] Description 11/05/2024 9:00 AM EDT Office Visit [facility] MEDICINE 230 [place] [address] RobertoCarmen [facility] 230 [place] [address] 11/27/2024 11:00 AM EDT Office Visit [facility] MEDICINE 230 [place] [address] documented as of this encounter Visit Diagnoses Diagnosis Other chronic pain documented in this encounter Additional Health Concerns Assessment Noted Time PHQ-9 Depression Total Score: 0 10/15/19 23 8:58 AM EDT documented as of this encounter Care Teams Hobber Relationship Specialty Start Date End Date Carmen Mejia FNP 230 [place] [address] PCP - General Family Medicine 03/18/21 documented as of this encounter
--- OUTSIDE RECORDS SUMMARY | 2024-10-25 12:22 | XMS_ITS | Encounter Summary ---
Author Organization [employer] Address [address] [facility] [address] 7t [place] [address] Care Team Providers Care Public Works Director Name Role Phone Roberto [facility] Primary Care Provider [phone] Reason for Visit * Reason Comments Med Refill Encounter Details Date Type Department Care Team (Late st Contact Info) Description 10/21/2024 Refill [facility] CHC MED & PEDS [address] [place], [place] [phone] Roberto [facility] [address] [place] [address] Primary insomnia Social History Tobacco Use Types [...] Description 11/05/2024 9:00 AM EDT Office Visit [address] [address] Carmen Mejia FNP [address] [place] [address] 11/27/2024 11:00 AM EDT Office Visit [address] [address] documented as of this encounter Visit Diagnoses Diagnosis Primary insomnia Persistent disorder of initiating or maintaining sleep documented in this encounter Additional Health Concerns Assessment Noted Time PHQ-9 Depression Total Score: 0 02/10/20 24 9:01 AM EDT documented as of this encounter Care Teams Public Works Director Relationship Specialty Start Date End Date Carmen Mejia FNP [address] [place] [address] PCP - General Family Medicine 03/18/21 documented as of this encounter
== END 2024-10-25 10:52 | disposition home or self-care (01) ==
LOC: HO.BBR 10:51
PROVIDERS: PCP Registered Nurse; Visit Provider Urology
DX: R71.8 Other abnormality of red blood cells (principal); R79.89 Other specified abnormal findings of blood chemistry; Z79.890 Hormone replacement therapy
CPT/HCPCS: 85014

== ENCOUNTER 2024-11-05 10:08 | Outpatient (REF) | payer OTHER, SELFPAY ==
--- NOTE | ~2024-11-05 | XR_ITS ---
EXAMINATION: XR KNEE 3 VIEWS LEFT HISTORY: 59 y.o male with acute on chronic left knee pain, suspect OA COMPARISON: There are no prior studies available for comparison. FINDINGS: Four views of the left knee are submitted. Osseous mineralization is normal. There is no fracture or dislocation. There is mild narrowing of the medial compartment. The soft tissues are unremarkable. XR/XR knee LT 3V IMPRESSION: Mild narrowing of the medial compartment. Electronically signed by: Edison Bailey MD 11/05/2024 01:24 PM EDT
--- OUTSIDE RECORDS SUMMARY | 2024-11-05 10:40 | XMS_ITS | Encounter Summary ---
Author Organization [employer] Address [address] [facility] 7t [place] [address] Care Team Providers Care Electrical Installation Supervisor Name Role Phone Roberto [facility] Primary Care Provider [phone] Reason for Visit * Reason Comments Med Refill Encounter Details Date Type Department Care Team (Late st Contact Info) Description 01/02/2024 Refill [facility] CHC MED & PEDS [address] [place], [place] [phone] Roberto, [facility] 230 [facility] [place] [address] Nontraumatic incomplete tear of rotator cuff, unspecified [...] Care Team (Late st Contact Info) Description 11/27/2024 11:00 AM EDT Office Visit [facility] MEDICINE 230 [place] [address] documented as of this encounter Visit Diagnoses Diagnosis Nontraumatic incomplete tear of rotator cuff, unspecified laterality documented in this encounter Additional Health Concerns Assessment Noted Time PHQ-9 Depression Total Score: 0 11/09/19 24 9:34 AM EDT documented as of this encounter Care Teams Electrical Installation Supervisor Relationship Specialty Start Date End Date Carmen Mejia FNP 230 [place] [address] PCP - General Family Medicine 03/18/21 documented as of this encounter
--- OUTSIDE RECORDS SUMMARY | 2024-11-05 10:40 | XMS_ITS | Encounter Summary ---
Author Organization [facility] Address [address] [place] [address] Care Team Providers Care Radiation Physicist Name Role Phone Gabriel Ag MD Primary Care Provider [phone] Encounter Details Date Type Department Care Team Description 09/22/2015 Release of Information Medical Records [address] [place] [id number] Abstract, Provider Social History Tobacco Use Types Packs/Day Years Used Date Smoking Tobacco: Former Cigarettes S tarted: 09/17/2009 Comments:after 3-4/day on an d off about total 10 years Alcohol Use Standard Drinks/Week Comments Not Asked 0 (1 standard drink = 0.6 oz pur e alcohol) Sex Assigned at Date Recorded Not on file documented as of this encounter Plan of Treatment Not on file documented as of this encounter Visit Diagnoses Not on filedocumented in this encounter Care Teams Radiation Physicist Relationship Specialty Start Date End Date Gabriel Ag MD [address] [place] [id number] PCP - General Internal Medicine 09/03/15 documented as of this encounter
--- OUTSIDE RECORDS SUMMARY | 2024-11-05 10:40 | XMS_ITS | Encounter Summary ---
Author Organization [employer] Address [address] [facility] 7t [place] [address] Care Team Providers Care Sugar Mill Worker Name Role Phone Carmen Mejia [facility] Primary Care Provider [phone] Encounter Details Date Type Department Care Team (Late st Contact Info) Description 06/11/2022 Orders Only [facility] CHC MED & PEDS [address] [place] [address] Ritika Mcgovern LPN Social History Tobacco Use [...] Description 11/27/2024 11:00 AM EDT Office Visit [facility] MEDICINE 230 [place] [address] documented as of this encounter Visit Diagnoses Not on filedocumented in this encounter Care Teams Sugar Mill Worker Relationship Specialty Start Date End Date Carmen Mejia FNP 230 [place] [address] PCP - General Family Medicine 03/18/21 documented as of this encounter
--- OUTSIDE RECORDS SUMMARY | 2024-11-05 10:40 | XMS_ITS | Encounter Summary ---
Author Organization [employer] Address 75 [facility] 7t [place] [address] Care Team Providers Care Floral Designer Name Role Phone Roberto, Carmen [facility] Primary Care Provider [phone] Encounter Details Date Type Department Care Team (Late Contact Info) Description 10/15/2022 Orders Only [facility] CHC MED & PEDS [address] [place], [place] [phone] Ritika Mcgovern LPN Social History Tobacco Use [...] Department Care Team (Late Contact Info) Description 11/27/2024 11:00 AM EDT Office Visit [facility] MEDICINE 230 [place] [address] documented as of this encounter Visit Diagnoses Not on filedocumented in this encounter Additional Health Concerns Assessment Noted Time PHQ-9 Depression Total Score: 0 10/15/19 23 8:58 AM EDT documented as of this encounter Care Teams Floral Designer Relationship Specialty Start Date End Date Carmen Mejia FNP 230 [place] [address] PCP - General Family Medicine 03/18/21 documented as of this encounter
--- OUTSIDE RECORDS SUMMARY | 2024-11-05 10:40 | XMS_ITS | Clinical Summary ---
Author Organization [employer] Address [address] [facility] 7t [place] [address] Care Team Providers Care Insurance Case Manager Name Role Phone Roberto [facility] Primary Care Provider [phone] Allergies Active Allergy Reactions Criticality Noted Date [...] 1 TABLET BY MOUTH EVERY MORNING (CALL [phone] FOR APPOINTMENT (Dr. Pillai)) 023 Active carvedilol (Coreg) 25 MG tablet TAKE 1 TABLET BY MOUTH TWICE DAILY IN THE MORNING AND IN THE EVENING WITH FOOD 023 Active atorvastatin (Lipitor) 40 MG tablet Take 40 mg by mouth at bedtime. 023 Active Aspirin Low Dose 81 MG EC tablet TAKE 1 TABLET BY MOUTH EVERY MORNING (CALL [phone] FOR APPOINTMENT (Dr. 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) Use one pad each to prep skin prior to injection as directed 100 each 025 Active Lancets 33G miscIndications: 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) Use as directed to check blood sugar four times daily 100 each 025 Active Blood Glucose Monitoring Suppl (GNP Easy Touch Glucose Meter) deviceIndication s: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) Use as directed to check blood sugar four times daily 1 each 025 Active empagliflozin (Jardiance) 25 MGIndications:Ty pe 2 diabetes mellitus with other specified complication, without long-term current use of insulin (CMS/HCC) TAKE 1 TABLET BY MOUTH EVERY MORNING 30 tablet 025 Active QUEtiapine (SEROquel) 50 MG tabletIndication s:Type 2 diabetes mellitus with other specified complication, without long-term current use of insulin ([facility]/HCC) TAKE 2 TABLETS BY MOUTH EVERY DAY AT BEDTIME 60 tablet 025 Active citalopram (CeleXA) 20 MG tabletIndication s:Mood disorder (CMS/HCC) TAKE 1 TABLET BY MOUTH EVERY MORNING 30 tablet 025 Active citalopram (CeleXA) 10 MG tabletIndication s:Mood disorder (CMS/HCC) Take 1 tablet (10 mg) by mouth in the morning. 30 tablet 025 Active glucose blood (FREESTYLE LITE) test stripIndications :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) TEST BLOOD SUGAR THREE TIMES DAILY 100 each 025 Active zolpidem (Ambien) 5 MG tabletIndication s:Primary insomnia TAKE 1 TABLET BY MOUTH AT BEDTIME 30 tablet 1 025 Active acetaminophen-co deine (Tylenol w/ Codeine #4) 300-60 MG tabletIndication s:Nontraumatic incomplete tear of rotator cuff, unspecified laterality Take 1 tablet by mouth every 8 (eight) hours if needed for moderate pain. 84 tablet 025 Active Dulaglutide (Trulicity) 4.5 MG/0.5ML solution auto-injectorInd ications:Diabete s mellitus type 2 with neurological manifestations (CMS/HCC) Inject 4.5 mg under the skin 1 (one) time per week. 2 mL 3 025 Active Tirzepatide (Mounjaro) 5 MG/0.5ML solution auto-injectorInd ications:Diabete s mellitus type 2 with neurological manifestations (CMS/HCC) Inject 5 mg under the skin 1 (one) time per week. 2 mL 1 025 2025 Active Dulaglutide (Trulicity) 4.5 MG/0.5ML solution auto-injectorInd ications:Diabete s mellitus type 2 with neurological manifestations (CMS/HCC) Inject 4.5 mg under the skin 1 (one) time per week. 2 mL 3 025 2024 Discontinued(R eorder (will not trigger notification to Pharmacy)) zolpidem (Ambien) 5 MG tabletIndication s:Primary insomnia TAKE 1 TABLET BY MOUTH AT BEDTIME 30 tablet 1 025 2024 Discontinued acetaminophen-co deine (Tylenol w/ Codeine #4) 300-60 MG tabletIndication s:Nontraumatic incomplete tear of rotator cuff, unspecified laterality TAKE 1 TABLET BY MOUTH EVERY 8 HOURS NEEDED FOR MODERATE PAIN 84 tablet 025 2024 Discontinued(R eorder (will not trigger notification to Pharmacy)) Active Problems Problem Noted Date Diagnosed Date Long-term current use of opiate analgesic 2023 Overview (09/25/2024): Medication: Tylenol w/ Codeine #4 (300-60mg) Q8H PRN Indication: Rotator cuff tear (not ideal surgical candidate) Tier III (Q6 month visits) Last [employer]OMOT[employer] TECHNICIAN Agreement: 09/25/24 Assessment & Plan (09/25/2024 2:43 PM EDT): Timeline: - 11/17/23: [employer] TECHNICIAN Agreement, Utox/pill count as expected - 12/13/23: [...] (07/24/2024 3:07 PM EST): Timeline: - 11/17/23: [employer]OMOTIVE TECHNICIAN Agreement, Utox/pill count as expected - 12/13/23: NCNS to Group visit - 12/27/23: Initial Group Visit, Utox/pill count as expected - 01/31/24: Group visit, Utox/pill count as expected - 03/13/24: Group visit, Utox/pill count as expected - 05/15/24: Group visit, Utox/pill count as expected - 07/17/24: Group visit, Utox/pill count as expected Assessment & Plan (05/15/2024 6:31 PM EST): Timeline: - 11/17/23: [employer]OMOTIVE TECHNICIAN Agreement, Utox/pill count as expected - 12/13/23: [...] Overview (07/20/2022): ?? Followed by cardiology at [facility]. ?? Hx of reduced [...] managing pain with Tylenol #4. Compliant with [employer] TECHNICIAN agreement ?? Followed by [facility] pain mnmt. Assessment & Plan (09/25/2024 2:43 [...] Healthcare maintenance 07/20/2022 Overview (04/28/2023): CRC: 2016 [facility] 10 year f/u PSA: 07/2022 0.57 HIV: Negative 2019 Hepatitis: Negative HCV 2019 Declines covid vaccine Assessment & Plan (01/13/2023 10:32 AM EDT): - Will request [facility] colonoscopy records Carpal tunnel syndrome on both sides 07/20/2022 Overview (07/20/2022): ?? EMG 12/2021-bilateral moderate-severe ulnar and median neuropathy and bilateral anahy guber anastamosis ?? Seen by [facility] Dr. Nixon 04/2022; surgical [...] hypertension 07/14/2017 Overview (10/15/2022): ?? Followed by [facility] cardiology ?? Hydralazine 50mg [...] dysfunction 12/04/2015 Overview (07/20/2022): ?? Followed by [facility] urology and receives SQ testosterone Hypogonadism male 12/04/2015 Mixed hyperlipidemia 12/04/2015 Overview (10/15/2022): ?? Atorvastatin 40mg daily Assessment & Plan (10/15/2022 3:42 PM EDT): ?? Continue current regimen Old PR (myocardial infarction) 12/04/2015 Encounters Date Type Department Care Team Description 11/05/2024 9:00 AM EDT Office Visit [facility] [address] [place] [id number] Carmen Mejia FNP 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) (Primary Dx); Chronic pain of left knee 11/05/2024 Telephone [facility] [address] [place] [phone] Carmen Mejia FNP Prior Authorization ([facility]: [place]) 11/05/2024 Travel 11/02/2024 Telephone [facility] [address] [place] [address] Carmen Mejia FNP Chart Prep 10/29/2024 Patient Outreach [facility] [address] [place] [address] Carmen Mejia FNP Pre-visit Planning (SDOH screening negative and tobacco screening negative) 10/26/2024 Refill [facility] [address] [place], [place] [phone] Roberto, Carmen, INDUSTRIAL MACHINE ASSEMBLER Nontraumatic incomplete tear of rotator cuff, unspecified laterality 10/21/2024 Refill [facility] [address] [place] [address] Carmen Mejia, INDUSTRIAL MACHINE ASSEMBLER Primary insomnia 10/03/2024 Refill [facility] [address] [place] [address] Carmen Mejia, INDUSTRIAL MACHINE ASSEMBLER 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) 09/27/2024 Refill [facility] [address] [place] [address] Carmen Mejia, INDUSTRIAL MACHINE ASSEMBLER Nontraumatic incomplete tear of rotator cuff, unspecified laterality 09/25/2024 11:00 AM EDT Office Visit [facility] [address] [place] [address] Melani Haider, INDUSTRIAL MACHINE ASSEMBLER Traumatic incomplete tear of left rotator cuff, subsequent encounter (Primary Dx); Long-term current use of opiate analgesic 09/25/2024 Travel 09/14/2024 Refill [facility] [address] [place] [address] Carmen Mejia, INDUSTRIAL MACHINE ASSEMBLER Mood disorder (CMS/HCC) 09/12/2024 Refill [facility] [address] [place] [address] Carmen Mejia, [facility] Type 2 diabetes mellitus with other specified complication, without long-term current use of insulin (CMS/HCC) 09/10/2024 Orders Only [facility] [address] [place] [address] Carmen Mejia, INDUSTRIAL MACHINE ASSEMBLER 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) (Primary Dx) 09/10/2024 Refill [facility] [address] [place] [address] Elaina Valdivia MD 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) 08/27/2024 Refill [facility] [address] [place] [address] Carmen Mejia, INDUSTRIAL MACHINE ASSEMBLER Nontraumatic incomplete tear of rotator cuff, unspecified laterality 08/22/2024 Refill [facility] [address] [place] [address] Carmen Mejia [facility] Primary insomnia 08/20/2024 Refill [facility] [address] [place] [address] Carmen Mejia [facility] Diabetes mellitus type 2 with neurological manifestations ([facility]/HCC) 08/12/2024 Refill [facility] [address] [place], [place] [phone] Carmen Mejia [facility] Moderate persistent asthma without complication from Last 3 Months Immunizations Immunization Administration Dates Next Due Influenza Injectable Quadriv [...] Date Recorded Patient Health Questionnaire-9 Score 0 11/05/2024 Patient Health Questionnaire-9 Score 0 11/05/2024 Last PHQ-9: Questionnaire Data Not on file 0 11/05/2024 Housing Stability Answer Date Recorded What is [...] Date Recorded Patient Health Questionnaire-2 Score 0 11/05/2024 Internet Access Answer Date Recorded Internet Access Q1 Yes 10/29/2024 Internet Access Q2 Not on file 10/29/2024 Sex and Gender Information Value Date Recorded Sex Assigned at Male 04/19/2022 10:29 AM EDT Legal Sex Male 10:29 AM EDT Gender Identity Male 04/19/2022 10:29 AM EDT Sexual Orientation Straight 04/19/2022 10 :29 AM EDT Last Filed Vital Signs Vital Sign Reading Time Taken Comments Blood Pressure 127/81 11/05/2024 8:56 AM EDT Pulse 76 11/05/2024 8:56 AM EDT Temperature 36.3 ??C (97.4 ??F) 11/05/2024 8:56 AM ED T Respiratory Rate 20 11/05/2024 8:56 AM EDT Oxygen Saturation 97% 11/05/2024 8:56 AM EDT Inhaled Oxygen Concentration - - Weight 93 kg (205 lb) 11/05/2024 8:56 AM EDT Height 167.6 cm (5' 6 ) 11/05/2024 8:56 AM EDT Body Mass Index 33.09 11/05/2024 8:56 AM EDT Plan of Treatment Upcoming Encounters Date Type Department Care Team (Late st Contact Info) Description 11/27/2024 11:00 AM EDT Office Visit [facility] [address] [place] [address] Health Maintenance Due Date Last Done Comments CT Colonography 1964 Dental Oral Exam 1964 Dental Prophylaxis 1964 Dental X-Ray: Bitewings 1964 Dental X-Ray: Full Mouth 1964 FIT DNA/Cologuard 1964 FIT 1964 FOBT 1964 Sigmoidoscopy 1964 Alcohol/Substance Use Screening 1976 RSV Patients and Patients Aged 60 years or older (1 - Risk 60-74 years 1-dose series) 2024 Lipid Panel 07/20/2024 07/20/2023, 05/20, 04/15/2022, Additional history exists Diabetes: Urine Protein Screening 08/30/2024 08/31/2023, 07/20/2023, 07/20/2022, Additional history exists Diabetes: Hemoglobin A1C 02/05/2025 025, 08/03/2024, 02/10/2024, Additional history exists Colonoscopy 06/20/2025 06/20/2015 Colorectal Cancer Screening 06/20/2025 Diabetes: Foot Exam 10/18/2025 10/18/2024, 07/20/2023, 07/20/2023, Additional history exists Eye Exam 10/22/2025 10/22/2024, 10/18, 11/01/2022, Additional history exists SDOH Screening 10/29/2025 10/29/2024 Depression Screening 11/05/2025 11/05/2024, 11/06/19 25 Disability Screening 11/05/2025 11/05/2024 Tobacco Screening 11/05/2025 11/05/2024 DTaP/Tdap/Td Vaccines (3 - Td or Tdap) [...] patient's age to complete this topic Meningococcal B Vaccine Aged Out No l onger eligible based on patient's age to complete [...] Diagnosis Comments POCT GLYCATED HEMOGLOBIN, TOTAL Routine 11/05/2024 9:00 AM EDT 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) POCT GLUCOSE Routine 11/05/2024 8:58 AM EDT 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) POCT KINA-14 URINE DRUG SCREEN Routine 09/25/2024 [...] Maintenance Results * (ABNORMAL) POCT HGB A1C (11/05/2024 9:00 AM EDT) Pathologist [facility] Hemoglobin A1C 7.7(A) 4.0 - 6.0 % Blood 11/05/2024 9:00 AM EDT [facility] POINT OF CARE TEST ENTER/EDIT ORDERABLES Final Result * (ABNORMAL) POCT Glucose (11/05/2024 8:58 AM EDT) Pathologist [facility] Glucose Blood, POC 207(A) 60 - 200 mg/dL Blood Capillary blood specimen / Unknown 11/05/2024 8:58 AM EDT Result [facility] POINT OF CARE TEST ENTER/EDIT ORDERABLES Final Result * POCT KINA-14 Urine Drug Screen (09/25/2024 1:40 PM EDT) [facility] Opiate Screen, Urine Positive Urine Urine specimen obtained by clean catch procedure / Unknown 09/25/2024 1:40 PM EDT Narrative Ligia Titus RN - 09/25/2024 1:40 PM EDT .UTOX cup Lot#[id number] Exp. 02/06/26 Internal Pass Control Result [facility] Melani Haider [facility] POINT OF CARE TEST ENTER/EDIT ORDERABLES Final Result * (ABNORMAL) Albumin, Random Urine W/Creatinine (08/31/2023 8:39 AM EDT) Pathologist [facility] Creatinine, Urine 97.43 mg/dL [facility] Microalbumin Urine 122.0 mg/L H [facility] Microalbum Creatinine Ratio Ur 125.2(H) <30 ug/mg cr [facility] Comment:Albumin/Creatinine R atio Reference Ranges: Normal: < 30 ug/mg creatinine Microalbuminuria: 30 - 300 ug/mg creatinineClinical Albuminuria: > 300 ug/mg creatinine 08/31/2023 8:39 AM EDT 08/31/2023 11:26 AM EDT [facility] LAB URINE ORDERABLES Final Re sult Performing Organization Address [facility] Co de Phone Number [facility] [address] [place] [address] [phone] * Lipid Panel, Standard (07/20/2023 9:32 AM EST) Triglycerides 71 <150 mg/dL [facility] Comment:Desirable Triglyceri de: less than 150 mg/dLBorderline High Triglyceride 150-199 mg/dLHigh Triglyceride: 200-499 mg/dLVery High Triglyceride: greater than or equal to 5OO mg/dL Cholesterol 127 <200 mg/dL [facility] Comment:Desirable Cholestero l: less than 200 mg/dLBorderline High Cholesterol: 200-239 mg/dLHigh Cholesterol: greater than 239 mg/dL LDL Cholesterol Calculated 64 <100 mg/dL [facility] Comment:Desirable LDL: less than 100 mg/dLNear Optimal/Above Optimal LDL: 110- 129 mg/dLBorderline High LDL: 130-159 mg/dLHigh LDL: 160-189 mg/dLVery High LDL: greater than or equal to 190 mg/dL HDL Cholesterol 49 >40 mg/dL [facility] Comment:Desirable HDL: great er than 40 mg/dL Note: This HDL assay may give artificially low results in patients with liver disease. Blood Venous blood specimen / Unknown 07/20/2023 9:32 AM EST 07/20/2023 11:47 AM EST [facility] LAB BLOOD ORDERABLES Final Re sult Performing Organization Address City/[facility]/ZIP Co de Phone Number [facility] [address] [place] [address] [phone] * HEPATITIS C AB W/REFL TO HCV RNA, QN, PCR (02/27/2020 9:28 AM EDT) HEPATITIS C ANTIBODY NON-REACT LAYNE NON-REACT LAYNE [facility] INDEX 0.02 <1.00 [facility] Comment: ?? HCV antibody was non-reactive. There is no laboratory ?? evidence of HCV infection. ?? In most cases, no further action is required. However, if recent HCV exposure is suspected, a test for HCV RNA (test code 62883) is suggested. ?? For additional information please refer to http://[employer]/faq/VZQ19d0 (This link is being provided for informational/ educational purposes only.) ?? 02/27/2020 9:28 AM EDT us Marcos Robles INDUSTRIAL MACHINE ASSEMBLER HISTORICAL/NON ORDERABLE LA BS Final Result Performing Organization Address City/State/[facility] Co de Phone Number [facility] [address] [place] [address], * HIV 1/2 ANTIGEN/ANTIBODY,FOURTH GENERATION W/RFL (02/27/2020 9:28 AM EDT) HIV-1/2 ANTIGEN AND ANTIBODIES, 4TH GENERATION W/ REFLEX NON-REACT LAYNE NON-REACT LAYNE [facility] Comment: HIV-1 antigen and [...] ? For additional information please refer to http://[employer]/faq/DGO185 (This link is being provided for informational/ educational purposes only.) ? The performance of this assay has not been clinically validated in patients less than 2 years old. ?? 02/27/2020 9:28 AM EDT us Marcos Robles INDUSTRIAL MACHINE ASSEMBLER LAB BLOOD ORDERABLES Final Result Performing Organization Address City/State/[facility] Co de Phone Number [facility] [address] * (ABNORMAL) Colonoscopy (06/20/2015) Colonoscopy Abnormal( A) Normal Comment:polyps-5 year follow up us Historical Provider MD HEALTH MAINTENANCE Final Result from Last 3 Months or Most Recently Relevant to Health Maintenance Insurance [place] [address] [address] [phone] [place] [address] * Guarantor: Andry Lehman Account Type Relation to Patient Date of Phone Billing Address Personal/Family Self [address] [address] Care Teams Insurance Case Manager Relationship Specialty Start Date End Date Carmen Mejia FNP [address] [place] [phone] PCP - General Family Medicine 03/18/21
--- OUTSIDE RECORDS SUMMARY | 2024-11-05 10:40 | XMS_ITS | Encounter Summary ---
Author Organization [employer] Address [address] [facility] 7[address] [place] [address] Care Team Providers Care Photograph Printer Name Role Phone Carmen Mejia RESIDENTIAL COORDINATOR Primary Care Provider [phone] Encounter Details Date Type Department Care Team (Late st Contact Info) Description 07/07/2022 Orders Only [facility] [address] [place] [address] Ritika Mcgovern LPN Social History Tobacco Use [...] Description 11/27/2024 11:00 AM EDT Office Visit [facility] [address] [place] [address] documented as of this encounter Visit Diagnoses Not on filedocumented in this encounter Care Teams Photograph Printer Relationship Specialty Start Date End Date Carmen Mejia FNP [address] [place] [address] PCP - General Family Medicine 03/18/21 documented as of this encounter
--- OUTSIDE RECORDS SUMMARY | 2024-11-05 10:40 | XMS_ITS | Encounter Summary ---
Author Organization [employer] Address [address] [facility] [address] [place] [address] Care Team Providers Care Ditch Repairer Name Role Phone Carmen Mejia [facility] Primary Care Provider Reason for Visit * Reason Comments Med Refill Encounter Details Date Type Department Care Team (Late st Contact Info) Description 11/18/2022 Refill [facility] [address] [place], [place] [phone] [facility] [address] [place], [place] [phone] Primary insomnia; Type 2 diabetes mellitus with other specified complication, without long-term current use of insulin ([facility]) Social History Tobacco Use Types Packs/Day Years [...] Description 11/27/2024 11:00 AM EDT Office Visit [facility] [address] [place] [phone] documented as of this encounter Visit Diagnoses Diagnosis Primary insomnia Persistent disorder of initiating or maintaining sleep Type 2 diabetes mellitus with other specified complication, without long-term current use of insulin ([facility]) documented in this encounter Additional Health Concerns Assessment Noted Time PHQ-9 Depression Total Score: 0 10/15/19 23 8:58 AM EDT documented as of this encounter Care Teams Ditch Repairer Relationship Specialty Start Date End Date Carmen Mejia FNP [address] [place] [phone] PCP - General Family Medicine 03/18/21 documented as of this encounter
--- OUTSIDE RECORDS SUMMARY | 2024-11-05 10:40 | XMS_ITS | Encounter Summary ---
Author Organization [employer] Address [address] [facility] [address] [place] [address] Care Team Providers Care Marketing And Outreach Coordinator Name Role Phone Carmen Mejia [facility] Primary Care Provider Reason for Visit * Reason Comments Med Refill Encounter Details Date Type Department Care Team (Late st Contact Info) Description 11/16/2022 Refill [facility] [address] [place], [place] [phone] Melani Haider FNP [address] [place], [place] [phone] Other chronic pain Social History Tobacco Use [...] Description 11/27/2024 11:00 AM EDT Office Visit [facility] [address] [place], [place] [phone] documented as of this encounter Visit Diagnoses Diagnosis Other chronic pain documented in this encounter Additional Health Concerns Assessment Noted Time PHQ-9 Depression Total Score: 0 10/15/19 23 8:58 AM EDT documented as of this encounter Care Teams Marketing And Outreach Coordinator Relationship Specialty Start Date End Date [place] F[place] [address] [place] [address] PCP - General Family Medicine 03/18/21 documented as of this encounter
--- OUTSIDE RECORDS SUMMARY | 2024-11-05 10:40 | XMS_ITS | Encounter Summary ---
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) Carmen Mejia FNP [address] [place] [address] Phone: tel: fax: Referral ID Status Reason Start Date Expiration Date Visits Re quested Visits Authorized [id number] Closed 1 1 Reason for Visit * Reason Comments Diabetes Encounter Details Date Type Department Care Team (Latest Contact Info) Description 11/05/2024 9:00 AM EDT Office Visit [facility] [address] [place] [address] Carmen Mejia FNP [address] [place] [address] 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 Question Answer Date of Assessment Author Patient Health Questionnaire-2 Score 0 11/05/2024 8:57 AM Augusta Vega MA * Little interest or pleasure in doing things Answer Date of Assessment Author Not at all 11/05/2024 8:57 AM Augusta Maurice MA * Feeling down, depressed, or hopeless Answer Date of Assessment Author Not at all 11/05/2024 8:57 AM Augusta Maurice MA * Trouble falling or staying asleep, or sleeping too much Answer Date of Assessment Author Not at all 11/05/2024 8:57 AM Augusta Maurice MA * Feeling tired or having little energy Answer Date of Assessment Author Not at all 11/05/2024 8:57 AM Augusta Maurice MA * Poor appetite or overeating Answer Date of Assessment Author Not at all 11/05/2024 8:57 AM Augusta Maurice MA * Feeling bad about yourself - or that you are a failure or have let yourself or your family down Answer Date of Assessment Author Not at all 11/05/2024 8:57 AM Augusta Maurice MA * Trouble concentrating on things, such as reading the newspaper or watching television Answer Date of Assessment Author Not at all 11/05/2024 8:57 AM Augusta Maurice MA * Moving or speaking so slowly that other people could have noticed? Or the opposite - being so fidgety or restless that you have been moving around a lot more than usual. Answer Date of Assessment Author Not at all 11/05/2024 8:57 AM Augusta Maurice MA * Thoughts that you would be better off or hurting yourself in some way Answer Date of Assessment Author Not at all 11/05/2024 8:57 AM Augusta Maurice MA * Patient Health Questionnaire-9 Score Answer Date of Assessment Author 0 11/05/2024 8:57 AM Augusta Maurice MA documented as of this encounter Progress Notes * [facility] - 11/05/2024 9:00 AM EDT SUBJECTIVE: Andry Lehman is a 59 y.o. year old male T2DM, cardiomyopathy with ICD in place, hx of ID, HTN and CAD who presents for diabetes follow up Denies recent illness, injury, or hospitalization. Acute Concerns: Left knee-acute on chronic pain. Remote hx of injury to left knee several years ago. Interval History [id number] increased to 4.5 mg at last visit. Had repeat echo-EF 50-55% otherwise unremarkable Wt Readings from Last 3 Encounters: 11/05/24 205 lb (93 kg) 08/03/24 205 lb (93 kg) 02/10/24 201 lb (91.2 kg) Has appt with podiatry next month Social History Social History Narrative Tobacco Use: None ETOH: None Marijuana Use: None Other substance use: None Current living environment: Lives with Children: 4 adult Problem List[1] Surgical History[2] Family History[3] Review of Systems Constitutional: Negative for activity change, diaphoresis, fatigue, fever and unexpected weight change. Eyes: Negative for visual disturbance. Respiratory: Negative for apnea, cough, chest tightness and shortness of breath. Cardiovascular: Negative for chest pain, palpitations and leg swelling. Gastrointestinal: Negative for abdominal pain and nausea. Musculoskeletal: Positive for arthralgias. Neurological: Negative for dizziness, syncope, light-headedness and headaches. OBJECTIVE: There were no vitals filed for this visit. Physical Exam Constitutional: Appearance: Normal appearance. HENT: Head: Normocephalic. Right Ear: External ear normal. Left Ear: External ear normal. Nose: Nose normal. Eyes: Conjunctiva/sclera: Conjunctivae normal. Cardiovascular: Rate and Rhythm: Normal rate and regular rhythm. Heart sounds: Normal heart sounds. Pulmonary: Effort: Pulmonary effort is normal. Breath sounds: Normal breath sounds. Musculoskeletal: Right knee: Normal. Left knee: Deformity and crepitus present. No swelling. Right lower leg: No edema. Left lower leg: No edema. Comments: + crepitus Tenderness to palpation along medial joint line Multiple bony growths palpable on anterior patella Neg anterior/posterior drawer Neg valgus/varus stress Strength and ROM intact Skin: General: Skin is warm and dry. Capillary Refill: Capillary refill takes less than 2 seconds. Neurological: General: No focal deficit present. Mental Status: He is alert and oriented to person, place, and time. Psychiatric: Mood and Affect: Mood normal. Behavior: Behavior normal. ASSESSMENT/PLAN T2DM Lab Results Component Value Date HGBA1C 7.7 (A) 11/05/2024 - A1c persistently above goal of less than 7 - Shared decision making with patient regarding treatment options. Will switch from Trulicity to Mounjaro for improved glycemic control and weight loss given significant cardiovascular risk factors. - Continue Jardiance 25, metformin 1000 mg twice daily Foot Exam: Follows with podiatry, UTD Eye Exam: Eye and Lasik. UTD Statin: Yes ASA: Yes KATJA/ARB: No, jardiance Left knee pain - Suspect OA - Baseline xray - Conservative tx measures discussed - Referral to PT and ortho Diagnosis Plan 1. 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) POCT Glucose POCT HGB A1C Lipid Panel, Standard Albumin, Random Urine W/Creatinine Lipid Panel, Standard Albumin, Random Urine W/Creatinine Dulaglutide (Trulicity) 4.5 MG/0.5ML solution auto-injector 2. Chronic pain of left knee XR Knee 3 Views Left XR Knee 3 Views Left Follow Up: 3 months routine Medications Ordered Prior to Encounter[4] Telugu Translation: Not applicable [1] Patient Active Problem List Diagnosis Asthma Cardiomyopathy (CMS/HCC) Coronary arteriosclerosis 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) Erectile dysfunction Essential hypertension Hypogonadism male Implantable cardioverter-defibrillator (ICD) in situ Mixed hyperlipidemia Moderate nonproliferative diabetic retinopathy (CMS/HCC) Old ID (myocardial infarction) Partial thickness rotator cuff tear Healthcare maintenance Carpal tunnel syndrome on both sides Mood disorder (CMS/HCC) Microalbuminuria Polycythemia HFrEF (heart failure with reduced ejection fraction) (CMS/HCC) Long-term current use of opiate analgesic [2] Past Surgical History: Procedure Laterality Date PROSTHODONTIC PROCEDURE [3] No family history on file. [4] Current Outpatient Medications on File Prior to Visit Medication Sig Dispense Refill acetaminophen-codeine (Tylenol w/ Codeine #4) 300-60 MG tablet Take 1 tablet by mouth every 8 (eight) hours if needed for moderate pain. 84 tablet 0 albuterol (2.5 MG/3ML) 0.083% nebulizer solution Take 3 mL (2.5 mg) by nebulization every 4 (four) hours if needed for wheezing. 75 mL 3 albuterol (Ventolin HFA) 108 (90 Base) MCG/ACT inhaler INHALE 2 PUFFS BY MOUTH EVERY 4 TO 6 HOURS NEEDED 18 g 2 Alcohol Swabs (Alcohol Prep) pads Use one pad each to prep skin prior to injection as directed 100 each 11 Aspirin Low Dose 81 MG EC tablet TAKE 1 TABLET BY MOUTH EVERY MORNING (CALL [phone] FOR APPOINTMENT (Dr. Pillai )) atorvastatin (Lipitor) 40 MG tablet Take 40 mg by mouth at bedtime. Blood Glucose Monitoring Suppl (PhantomP Easy Touch Glucose Meter) device Use as directed to check bloodsugar four times daily 1 each 0 budesonide-formoterol (Symbicort) 160-4.5 MCG/ACT inhaler INHALE 2 PUFFS TWICE DAILY IN THE MORNINGAND IN THE EVENING. RINSE MOUTH AFTER USING. 10.2 g 3 carvedilol (Coreg) 25 MG tablet TAKE 1 TABLET BY MOUTH TWICE DAILY IN THE MORNING AND IN THE EVENING WITH FOOD cetirizine (ZyrTEC) 10 MG tablet TAKE 1 TABLET BY MOUTH EVERY MORNING 30 tablet 5 citalopram (CeleXA) 10 MG tablet Take 1 tablet (10 mg) by mouth in the morning. 30 tablet 3 citalopram (CeleXA) 20 MG tablet TAKE 1 TABLET BY MOUTH EVERY MORNING 30 tablet 3 cyanocobalamin (Vitamin B-12) 1000 MCG tablet TAKE 1 TABLET BY MOUTH EVERY MORNING 30 tablet 5 Dulaglutide (Trulicity) 4.5 MG/0.5ML solution auto-injector Inject 4.5 mg under the skin 1 (one) time per week. 2 mL 3 empagliflozin (Jardiance) 25 MG TAKE 1 TABLET BY MOUTH EVERY MORNING 30 tablet 3 furosemide (Lasix) 40 MG tablet TAKE 1 TABLET BY MOUTH EVERY MORNING (CALL [phone] FOR APPOINTMENT(Dr. Pillai)) gabapentin (Neurontin) 300 MG capsule Take by mouth at bedtime. GaviLAX 17 GM/SCOOP powder TAKE 17 GM MIXED IN 8 OUNCES OF WATER ONCE DAILY NEEDED FOR CONSTIPATION 510 g 3 glucose blood (FREESTYLE LITE) test strip TEST BLOOD SUGAR 3 TIMES DAILY 100 strip 11 glucose blood (FREESTYLE LITE) test strip TEST BLOOD SUGAR THREE TIMES DAILY 100 each 11 hydrALAZINE (Apresoline) 50 MG tablet TAKE 1 TABLET BY MOUTH TWICE DAILY IN THE MORNING AND AT BEDTIME Lancets 33G misc Use as directed to check blood sugar four times daily 100 each 3 metFORMIN (Glucophage) 1000 MG tablet TAKE 1 TABLET BY MOUTH TWICE DAILY IN THE MORNING AND IN THE EVENING WITH MEALS 180 tablet 1 Multiple Vitamin (multivitamin) tablet Take 1 tablet by mouth Once per day. 30 tablet 11 naloxone (Narcan) 4 mg/0.1 mL nasal spray Administer 1 spray (4 mg) into affected nostril(s) if needed for opioid reversal. May repeat every 2-3 minutes if needed, alternating nostrils, until medicalassistance becomes available. 2 each 3 omeprazole (PriLOSEC) [address] capsule Take 1 capsule (20 mg) by mouth 2 times daily. 60 capsule 3 QUEtiapine (SEROquel) 50 MG tablet TAKE 2 TABLETS BY MOUTH EVERY DAY AT BEDTIME 60 tablet 3 testosterone cypionate (Depo-Testosterone) 200 MG/ML injection INJECT 0.5ML 100MG) SUBCUTANEOUSLY ONCE A WEEK TRUEplus Lancets 33G misc TEST BLOOD SUGAR 3 TIMES DAILY 100 each 11 zolpidem (Ambien) 5 MG tablet TAKE 1 TABLET BY MOUTH AT BEDTIME 30 tablet 1 [DISCONTINUED] acetaminophen-codeine (Tylenol w/ Codeine #4) 300-60 MG tablet TAKE 1 TABLET BY MOUTH EVERY 8 HOURS NEEDED FOR MODERATE PAIN 84 tablet 0 No current facility-administered medications on file prior to visit. documented in this encounter Plan of Treatment Upcoming Encounters Date Type Department Care Team (Late st Contact Info) Description 11/27/2024 11:00 AM EDT Office Visit [facility] [address] [place] [address] Scheduled Orders Name Type Priority Associated Diagnoses Orde r Schedule Lipid Panel, Standard Lab Routine 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) Expected: 11/05/2024 (Approximate), Expires: 11/05/2025 Albumin, Random Urine W/Creatinine Lab Routine 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) Expected: 11/05/2024 (Approximate), Expires: 11/05/2025 XR Knee 3 Views Left Imaging Routine Chronic pain of left knee Expected: 11/05/2024, Expires: 11/05/2025 documented as of this encounter Procedures Procedure Name Priority Date/Time Associated Diagnosis Comments POCT GLYCATED HEMOGLOBIN, TOTAL Routine 11/05/2024 9:00 AM EDT 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) POCT GLUCOSE Routine 11/05/2024 8:58 AM EDT Diabetes mellitus type 2 with neurological manifestations ([facility]/HCC) documented in this encounter Results * (ABNORMAL) POCT HGB A1C (11/05/2024 9:00 AM EDT) Hemoglobin A1C 7.7(A) 4.0 - 6.0 % Blood 11/05/2024 9:00 AM EDT [facility] POINT OF CARE TEST ENTER/EDIT ORDERABLES Final Result * (ABNORMAL) POCT Glucose (11/05/2024 8:58 AM EDT) Glucose Blood, POC 207(A) 60 - 200 mg/dL Blood Capillary blood specimen / Unknown 11/05/2024 8:58 AM EDT [facility] POINT OF CARE TEST ENTER/EDIT ORDERABLES Final Result documented in this encounter Visit Diagnoses Diagnosis Diabetes mellitus type 2 with neurological manifestations ([facility])- Primary Chronic pain of left knee documented in this encounter Additional Health Concerns Assessment Noted Time PHQ-9 Depression Total Score: 0 11/06/19 25 8:57 AM EDT documented as of this encounter Care Teams Machine Greaser Relationship Specialty Start Date End Date Carmen Mejia FNP [address] [place] [id number] PCP - General Family Medicine 03/18/21 documented as of this encounter
--- OUTSIDE RECORDS SUMMARY | 2024-11-05 10:40 | XMS_ITS | Encounter Summary ---
Author Organization [employer] Address [address] [facility] 7[address] [place] [address] Care Team Providers Care Assistant Construction Superintendent Name Role Phone Carmen Mejia [facility] Primary Care Provider [phone] Encounter Details Date Type Department Care Team (Late st Contact Info) Description 05/05/2023 Abstract [facility] MED[facility]INE [address] [place] [address] Dia Gibson Social History Tobacco Use Types [...] Description 11/27/2024 11:00 AM EDT Office Visit [facility] [address] [place] [address] documented as of this encounter Visit Diagnoses Not on filedocumented in this encounter Additional Health Concerns Assessment Noted Time PHQ-9 Depression Total Score: 24 023 9:04 AM EDT documented as of this encounter Care Teams Assistant Construction Superintendent Relationship Specialty Start Date End Date Carmen Mejia FNP [address] [place] [address] PCP - General Family Medicine 03/18/21 documented as of this encounter
--- OUTSIDE RECORDS SUMMARY | 2024-11-05 10:40 | XMS_ITS | Encounter Summary ---
Author Organization [employer] Address [address] [facility] [address] [place] [address] Care Team Providers Care Deburrer Strip Name Role Phone Carmen Mejia HOT PATCHER Primary Care Provider Reason for Visit * Reason Onset Date Comments denture appt PA 11/02/2022 Encounter Details Date Type Department Care Team (Late st Contact Info) Description 11/02/2022 Telephone [facility] ADULT DENTAL [address] [place] [address] Bal Aponte, DMD [address] [place] [address] denture appt PA Social History Tobacco Use [...] - 11/02/2022 11:09 AM EDT Rep from [facility] called in checking in on the status [...] Description 11/27/2024 11:00 AM EDT Office Visit [facility] [address] [place] [address] documented as of this encounter Visit Diagnoses Not on filedocumented in this encounter Additional Health Concerns Assessment Noted Time PHQ-9 Depression Total Score: 0 10/15/19 23 8:58 AM EDT documented as of this encounter Care Teams Deburrer Strip Relationship Specialty Start Date End Date Carmen Mejia FNP [address] [place] [address] PCP - General Family Medicine 03/18/21 documented as of this encounter
--- OUTSIDE RECORDS SUMMARY | 2024-11-05 10:40 | XMS_ITS | Encounter Summary ---
Author Organization [employer] Address [address] [facility] 7[address] [place] [address] Care Team Providers Care Clockmaker Apprentice Name Role Phone Carmen Mejia [facility] Primary Care Provider [phone] Reason for Visit * Reason Comments Med Refill Encounter Details Date Type Department Care Team (Late st Contact Info) Description 10/12/2023 Refill [facility] [address] [place], [place] [phone] Carmen Mejia [facility] [address] [place] [address] Primary insomnia Social History Tobacco Use Types [...] Description 11/27/2024 11:00 AM EDT Office Visit [facility] [address] [place] [address] documented as of this encounter Visit Diagnoses Diagnosis Primary insomnia Persistent disorder of initiating or maintaining sleep documented in this encounter Additional Health Concerns Assessment Noted Time PHQ-9 Depression Total Score: 24 023 9:04 AM EDT documented as of this encounter Care Teams Clockmaker Apprentice Relationship Specialty Start Date End Date Carmen Mejia FNP [address] [place] [address] PCP - General Family Medicine 03/18/21 documented as of this encounter
--- OUTSIDE RECORDS SUMMARY | 2024-11-05 10:40 | XMS_ITS | Encounter Summary ---
Author Organization [employer] Address [address] [facility] 7t [place] [address] Care Team Providers Care Quality Control Clerk Name Role Phone [facility] Primary Care Provider [phone] Reason for Visit * Reason Onset Date Comments Med Refill 10/26/2024 Encounter Details Date Type Department Care Team (Late st Contact Info) Description 10/26/2024 Refill [facility] [address] [place] [address] [facility] [address] [place] [address] Nontraumatic incomplete tear of rotator cuff, unspecified [...] Recorded Patient Health Questionnaire-2 Score 0 02/10/2024 Internet Access Answer Date Recorded Internet Access [...] encounter Miscellaneous Notes * Addendum Note - Thiago Rojas RN - 10/31/2024 9:08 AM EDTAddended by: THIAGO ROJAS on: 10/31/2024 09:08 AM Modules accepted: Orders * Telephone Encounter - Thiago Rojas RN - 10/31/2024 9:07 AM EDT [facility] reviewed again today, rx pended. PCP OFF * Telephone Encounter - Thiago Rojas RN - 10/26/2024 9:19 AM EDT [facility] reviewed, pt. Last picked up 28 day supply 10/05/24, rx will be due 11/02/24. Will pend to PCP 10/31/24 * Telephone Encounter - Shannon Sargent LPN - 10/26/2024 8:50 AM EDT Received request on acetaminophen-codeine (Tylenol w/ Codeine #4) 300-60 MG tablet documented in this encounter Plan of Treatment Upcoming Encounters Date Type Department Care Team (Late st Contact Info) Description 11/27/2024 11:00 AM EDT Office Visit [facility] [address] [place] [address] documented as of this encounter Visit Diagnoses Diagnosis Nontraumatic incomplete tear of rotator cuff, unspecified laterality documented in this encounter Additional Health Concerns Assessment Noted Time PHQ-9 Depression Total Score: 0 02/10/20 24 9:01 AM EDT documented as of this encounter Care Teams Quality Control Clerk Relationship Specialty Start Date End Date Carmen Mejia FNP [address] [place] [address] PCP - General Family Medicine 03/18/21 documented as of this encounter
--- OUTSIDE RECORDS SUMMARY | 2024-11-05 10:40 | XMS_ITS | Clinical Summary ---
Author Organization [facility] Address [address] [place] [address] Care Team Providers Care Traffic Division Commanding Officer Name Role Phone Gabriel Ag MD Primary Care Provider [phone] Allergies No known active allergies Medications Medication Sig Dispensed Refills Start Date End Date Status metformin (GLUCOPHAGE) 1000 MG tablet Take 1,000 mg by mouth. 2 tab bid 0 Active sildenafil (VIAGRA) 100 MG tablet Take 100 mg by mouth as needed. 0 Active Insulin Glargine (LANTUS SOLOSTAR) 100 UNIT/ML Solution Pen-injector Inject into the skin. 50 units BID 0 Active lisinopril (PRINIVIL,ZESTRIL) 10 MG tablet Take 10 mg by mouth daily. 0 Active cyclobenzaprine (FLEXERIL) 10 MG tablet Take 10 mg by mouth 3 times daily as needed. 0 Active Active Problems Problem Noted Date Old DC (myocardial infarction) 6 Asthma 12/04/2015 Mixed hyperlipidemia 12/04/2015 Type 2 diabetes, uncontrolled, with ayad l manifestation 12/04/2015 HTN (hypertension) 12/04/2015 Erectile dysfunction 12/04/2015 Microalbuminuria 12/04/2015 Type 2 diabetes mellitus with vascular d isease 12/04/2015 Polyneuropathy 12/04/2015 Diabetes mellitus type 2 with neurologic al manifestations 12/04/2015 Hypogonadism male 12/04/2015 Family History Medical History Relation Name Comments Diabetes Brother 2 Diabetes Father DC Father from [place] at age 58 Diabetes Mother some heart issue [Other] Mother he art working only 10% , no DC Diabetes Sister 2 Relation Name Status Comments Brother 1 Brother 2 Father Mother Sister 1 Sister 2 Social History Tobacco Use Types Packs/Day Years Used Date Smoking Tobacco: Former Cigarettes S tarted: 09/17/2009 Comments:after 3-4/day on an d off about total 10 years Alcohol Use Standard Drinks/Week Comments Not Asked 0 (1 standard drink = 0.6 oz pur e alcohol) Sex Assigned at Date Recorded Not on file Last Filed Vital Signs Vital Sign Reading Time Taken Comments Blood Pressure 130/81 09/18/2015 2:14 PM EDT Pulse 105 09/18/2015 2:14 PM EDT Temperature 36.4 ??C (97.5 ??F) 09/18/2015 2:14 PM ED T Respiratory Rate 16 09/18/2015 2:14 PM EDT Oxygen Saturation - - Inhaled Oxygen Concentration - - Weight 101.7 kg (224 lb 3.2 oz) 09/18/2015 2:14 PM EDT Height 170.2 cm (5' 7 ) 09/18/2015 2:14 PM EDT Body Mass Index 35.11 09/18/2015 2:14 PM EDT Plan of Treatment Health Maintenance Due Date Last Done Comments Covid-19 Vaccine (#1) 1965 DIABETES/HEART DISEASE: ANNUAL CHOLESTEROL (LDL) 03/10 DIABETES: ANNUAL EYE EXAM 1982 DIABETES: ANNUAL FOOT EXAM 1982 DIABETES: ANNUAL URINE PROTEIN TEST (MICROALBUMIN) DIABETES: BLOOD SUGAR CONTROL TEST (HGBA1C) 1982 HEPATITIS C SCREENING 1982 TOBACCO CHECK/ADVISE 1982 DTAP/TDAP/TD (1 - Tdap) 1983 PNEUMOCOCCAL VACCINE FOR HIGH RISK PATIENTS (#1) 03/10 BASELINE HEALTH EXAM 40-64 2004 COLON CANCER SCREENING 2014 SHINGLES VACCINE (1 of 2) 2014 BMI CHECK/ADVISE 06/20/2024 INFLUENZA (Season Ended) 2025 Care Teams Traffic Division Commanding Officer Relationship Specialty Start Date End Date Gabriel Ag MD [address] [place] [address] PCP - General Internal Medicine 09/03/15
--- OUTSIDE RECORDS SUMMARY | 2024-11-05 10:40 | XMS_ITS | Encounter Summary ---
Author Organization [employer] Address [address] [place] [address] [address] [place] [address] Care Team Providers Care Logging Tractor Operator Name Role Phone Carmen Mejia CEMENT MIXER Primary Care Provider [phone] Encounter Details Date Type Department Care Team (Late st Contact Info) Description 07/08/2022 Orders Only [facility] [address] [place] [address] Shannon Sargent LPN Social History Tobacco Use [...] Description 11/27/2024 11:00 AM EDT Office Visit [facility] [address] [place] [address] documented as of this encounter Visit Diagnoses Not on filedocumented in this encounter Care Teams Logging Tractor Operator Relationship Specialty Start Date End Date Carmen Mejia FNP [address] [place] [address] PCP - General Family Medicine 03/18/21 documented as of this encounter
--- OUTSIDE RECORDS SUMMARY | 2024-11-05 10:40 | XMS_ITS | Encounter Summary ---
Author Organization [employer] Address [address] [facility] [address] [place] [address] Care Team Providers Care Balance Staff Inspector Name Role Phone Carmen Mejia [facility] Primary Care Provider [phone] Reason for Visit * Reason Comments Med Refill Encounter Details Date Type Department Care Team (Late st Contact Info) Description 01/08/2024 Refill [facility] [address] [place], [place] [phone] [facility] [address] [place] [address] Moderate persistent asthma without complication Social History [...] Description 11/27/2024 11:00 AM EDT Office Visit [facility] [address] [place] [address] documented as of this encounter Visit Diagnoses Diagnosis Moderate persistent asthma without complication documented in this encounter Additional Health Concerns Assessment Noted Time PHQ-9 Depression Total Score: 0 11/09/19 24 9:34 AM EDT documented as of this encounter Care Teams Balance Staff Inspector Relationship Specialty Start Date End Date Carmen Mejia FNP [address] [place] [address] PCP - General Family Medicine 03/18/21 documented as of this encounter
--- OUTSIDE RECORDS SUMMARY | 2024-11-05 10:40 | XMS_ITS | Encounter Summary ---
Author Organization [employer] Address [address] [facility] [address] [place] [address] Care Team Providers Care Cold Type Artist Name Role Phone Carmen Mejia [facility] Primary Care Provider [phone] Encounter Details Date Type Department Care Team (Late Contact Info) Description 03/07/2023 Orders Only [facility] MED & PEDS [address] [place] [address] Shannon Sargent LPN Social History Tobacco Use [...] Description 11/27/2024 11:00 AM EDT Office Visit [facility] MEDICINE [address] [place] [address] documented as of this encounter Visit Diagnoses Not on filedocumented in this encounter Additional Health Concerns Assessment Noted Time PHQ-9 Depression Total Score: 0 01/14/20 23 9:12 AM EDT documented as of this encounter Care Teams Cold Type Artist Relationship Specialty Start Date End Date Carmen Mejia FNP [address] [place] [address] PCP - General Family Medicine 03/18/21 documented as of this encounter
--- OUTSIDE RECORDS SUMMARY | 2024-11-05 10:40 | XMS_ITS | Encounter Summary ---
Author Organization [employer] Address [address] [facility] [address] [place] [address] Care Team Providers Care Seconds Grader Name Role Phone Roberto [facility] Primary Care Provider [phone] Reason for Visit * Reason Comments Med Refill Encounter Details Date Type Department Care Team (Late st Contact Info) Description 01/03/2024 Refill [facility] CHC MED & PEDS [address] [place], [place] [phone] Roberto, [facility] [address] [facility] [place] [address] Nontraumatic incomplete tear of rotator cuff, unspecified [...] Description 11/27/2024 11:00 AM EDT Office Visit [facility] MEDICINE [address] [place] [address] documented as of this encounter Visit Diagnoses Diagnosis Nontraumatic incomplete tear of rotator cuff, unspecified laterality documented in this encounter Additional Health Concerns Assessment Noted Time PHQ-9 Depression Total Score: 0 11/09/19 24 9:34 AM EDT documented as of this encounter Care Teams Seconds Grader Relationship Specialty Start Date End Date Carmen Mejia FNP [address] [place] [address] PCP - General Family Medicine 03/18/21 documented as of this encounter
--- OUTSIDE RECORDS SUMMARY | 2024-11-05 10:41 | XMS_ITS | Encounter Summary ---
Author Organization [employer] Address [address] [facility] [address] [place] [address] Care Team Providers Care Electric Range Assembler Name Role Phone Carmen Mejia [facility] Primary Care Provider [phone] Reason for Visit * Reason Onset Date Comments Chart Prep 11/02/2024 Encounter Details Date Type Department Care Team ([facility] st Contact Info) Description 11/02/2024 Telephone [facility] MEDICINE [address] [place], [place] [phone] Carmen Mejia [facility] [address] [place] [address] Chart Prep Social History Tobacco Use Types Packs/Day Years [...] encounter Miscellaneous Notes * Telephone Encounter - Lynsey Jose MA - 11/02/2024 11:39 AM EDT Chart Prep Labs: not done L/M to patient vm to have labs done before appointment. Images: done TTE Report-09/03/24([facility] [place] Referrals: complete Vaccines due: RSV Screenings: eye exam and foot exam Overdue care gaps: A1c, Glucose, SBIRT, HAILE-7, and Disability screen documented in this encounter Plan of Treatment Upcoming Encounters Date Type Department Care Team (Late st Contact Info) Description 11/27/2024 11:00 AM EDT Office Visit [facility] MEDICINE [address] [place] [address] documented as of this encounter Visit Diagnoses Not on filedocumented in this encounter Additional Health Concerns Assessment Noted Time PHQ-9 Depression Total Score: 0 02/10/20 24 9:01 AM EDT documented as of this encounter Care Teams Electric Range Assembler Relationship Specialty Start Date End Date Carmen Mejia FNP [address] [place] [address] PCP - General Family Medicine 03/18/21 documented as of this encounter
--- OUTSIDE RECORDS SUMMARY | 2024-11-05 10:41 | XMS_ITS | Encounter Summary ---
Author Organization [employer] Address [address] [facility] [address] [place] [address] Care Team Providers Care Coal Carrier Name Role Phone Carmen Mejia [facility] Primary Care Provider [phone] Encounter Details Date Type Department Care Team (Latest Contact Info) Description 11/05/2024 Travel Social History Tobacco Use Types Packs/Day [...] AM EDT documented as of this encounter Functional Status * Over the past 2 weeks, how often have you been bothered by any of the following problems? Question Answer Date of Assessment Author Patient Health Questionnaire-2 Score 0 11/05/2024 8:57 AM EDT Augusta Fuentes MA * Little interest or pleasure in doing things Answer Date of Assessment Author Not at all 11/05/2024 8:57 AM EDT Augusta Granados MA * Feeling down, depressed, or hopeless Answer Date of Assessment Author Not at all 11/05/2024 8:57 AM EDT Augusta Granados MA * Trouble falling or staying asleep, or sleeping too much Answer Date of Assessment Author Not at all 11/05/2024 8:57 AM EDT Augusta Granados MA * Feeling tired or having little energy Answer Date of Assessment Author Not at all 11/05/2024 8:57 AM EDT Augusta Bauer MA * Poor appetite or overeating Answer Date of Assessment Author Not at all 11/05/2024 8:57 AM EDT Augusta Granados MA * Feeling bad about yourself - or that you are a failure or have let yourself or your family down Answer Date of Assessment Author Not at all 11/05/2024 8:57 AM EDT Augusta Granados MA * Trouble concentrating on things, such as reading the newspaper or watching television Answer Date of Assessment Author Not at all 11/05/2024 8:57 AM EDT Augusta Granados MA * Moving or speaking so slowly that other people could have noticed? Or the opposite - being so fidgety or restless that you have been moving around a lot more than usual. Answer Date of Assessment Author Not at all 11/05/2024 8:57 AM EDT Augusta Granados MA * Thoughts that you would be better off or hurting yourself in some way Answer Date of Assessment Author Not at all 11/05/2024 8:57 AM EDT Augusta Granados MA * Patient Health Questionnaire-9 Score Answer Date of Assessment Author 0 11/05/2024 8:57 AM EDT Augusta Granados MA documented as of this encounter Plan of Treatment Upcoming Encounters Date Type Department Care Team (Late st Contact Info) Description 11/27/2024 11:00 AM EDT Office Visit [facility] MEDICINE [address] [place] [address] documented as of this encounter Visit Diagnoses Not on filedocumented in this encounter Additional Health Concerns Assessment Noted Time PHQ-9 Depression Total Score: 0 11/06/19 25 8:57 AM EDT documented as of this encounter Care Teams Coal Carrier Relationship Specialty Start Date End Date Carmen Mejia FNP [address] [place] [address] PCP - General Family Medicine 03/18/21 documented as of this encounter
--- OUTSIDE RECORDS SUMMARY | 2024-11-05 10:41 | XMS_ITS | Encounter Summary ---
Author Organization [employer] Address [address] [facility] [address] [place] [address] Care Team Providers Care Tangled Yarn Spool Straightener Name Role Phone Roberto [facility] Primary Care Provider [phone] Reason for Visit * Reason Onset Date Comments Prior Authorization 11/05/2024 [facility] [place]: Lashonda Encounter Details Date Type Department Care Team ([facility] st Contact Info) Description 11/05/2024 Telephone [facility] MEDICINE [address] [place], [place] [phone] [facility] [address] [place] [address] Prior Authorization ([facility] [place]: Lashonda) Social History Tobacco Use Types Packs/Day Years [...] 8:57 AM EDT Augusta Granados MA * Poor appetite or overeating Answer Date of Assessment Author Not at all 11/05/2024 8:57 AM BEATRIZT Augusta Granados MA * Feeling bad about yourself - or that you are a failure or have let yourself or your family down Answer Date of Assessment Author Not at all 11/05/2024 8:57 AM BEATRIZT Augusta Granados MA * Trouble concentrating on [...] Granados MA documented as of this encounter Miscellaneous Notes * Telephone Encounter - Henrietta Rothman - 11/05/2024 9:45 AM EDT PA sent to Provider via email. Pending PA will be processed by provider. * Telephone Encounter - Henrietta Rothman - 11/05/2024 9:45 AM EDT ----- Message from Carmen [place] sent at 11/05/2024 9:31 AM EDT ----- Please initiate PA for lashonda (hard copy please)Thank yoU!! documented in this encounter Plan of Treatment Upcoming Encounters Date Type Department Care Team (Late st Contact Info) Description 11/27/2024 11:00 AM EDT Office Visit [facility] MEDICINE [address] [place] [address] documented as of this encounter Visit Diagnoses Not on filedocumented in this encounter Additional Health Concerns Assessment Noted Time PHQ-9 Depression Total Score: 0 11/06/19 25 8:57 AM EDT documented as of this encounter Care Teams Tangled Yarn Spool Straightener Relationship Specialty Start Date End Date Carmen Mejia FNP [address] [place] [address] PCP - General Family Medicine 03/18/21 documented as of this encounter
== END 2024-11-05 10:09 | disposition home or self-care (01) ==
LOC: HO.HHCX 10:08
PROVIDERS: Visit Provider Registered Nurse
DX: M25.562 Pain in left knee (principal); G89.29 Other chronic pain
CPT/HCPCS: 73562

== ENCOUNTER → 2024-11-05 10:08 | Outpatient (BNV) | payer OTHER, SELFPAY | PROVIDERS: Visit Provider Radiology Diagnostic Radiology | DX: M25.562 Pain in left knee (principal) | CPT/HCPCS: 73562 ==

== ENCOUNTER 2024-11-26 10:45 | Outpatient (REF) | payer OTHER, SELFPAY ==
[2024-11-26 13:30] LABS: Creatinine Urine 43.29 mg/dL; Hematocrit 52.9 % (42.0-52.0); Hemoglobin 15.7 g/dl (14.0-18.0); Mean Corpuscular HGB Conc 29.7 g/dl (31.0-36.0); Mean Corpuscular Hemoglobin 22.2 pg (27.0-33.0); Mean Corpuscular Volume 74.9 fL (80.0-98.0); Mean Platelet Volume 11.2 fL (9.4-12.4); Microalbum/Creatinine Ratio Ur 122.4 ug/mg cr (<30); Platelet Count 287 X10*3/uL (160-400); Red Blood Count 7.06 X10*6/uL (4.60-5.80); Red Cell Distribution Width 17.7 % (11.0-16.0); White Blood Count 11.1 X10*3/uL (4.8-10.8)
[2024-11-26 13:46] LABS: B Type Natriuretic Peptide < 10 pg/mL (<100)
[2024-11-26 13:51] LABS: Alanine Aminotransferase 13 U/L (0-40); Albumin Level 4.4 g/dL (3.5-5.0); Alkaline Phosphatase 103 U/L (39-117); Anion Gap 16 (12-20); Aspartate Amino Transferase 22 U/L (5-37); Bilirubin Total 0.6 mg/dL (0.0-1.0); Blood Urea Nitrogen 17 mg/dL (9-16); Calcium 9.6 mg/dL (8.4-10.2); Carbon Dioxide 28 mmol/L (22-29); Chloride 99 mmol/L (96-108); Cholesterol 127 mg/dL (<200); Estimated Glomerular Filt Rate > 60; Glucose Random 195 mg/dL (60-115); HDL Cholesterol 43 mg/dL (>40); LDL Cholesterol Calculated 59 mg/dL (<100); Potassium 4.2 mmol/L (3.3-5.1); Sodium 139 mmol/L (135-145); Total Protein 7.8 g/dL (6.5-8.0); Triglycerides 125 mg/dL (<150)
[2024-11-26 13:59] LABS: Prostate Specific Antigen 0.42 ng/mL (<0.05-4.0)
[2024-11-30 20:28] LABS: Testosterone, Total 711 ng/dL (250-1100)
== END 2024-11-26 10:46 | disposition home or self-care (01) ==
LOC: HO.HHCL 10:45
PROVIDERS: Urology; Visit Provider Registered Nurse
DX: E11.49 Type 2 diabetes mellitus with other diabetic neurological complication (principal); E29.1 Testicular hypofunction; I42.9 Cardiomyopathy, unspecified; Z12.5 Encounter for screening for malignant neoplasm of prostate
CPT/HCPCS: 36415; 80053; 80061; 82043; 82570; 83880; 84153; 84403; 85027

== ENCOUNTER 2024-11-29 10:47 | Outpatient (REF) | payer OTHER, SELFPAY ==
--- OUTSIDE RECORDS SUMMARY | 2024-11-29 12:40 | XMS_ITS | Clinical Summary ---
Author Organization [facility] Address [address] [place] [address] Care Team Providers Care Silk Examiner Name Role Phone Gabriel Ag MD Primary Care Provider [phone] Allergies No known active allergies Medications Medication [...] Active Active Problems Problem Noted Date Old PA (myocardial infarction) 6 Asthma 12/04/2015 Mixed hyperlipidemia 12/04/2015 Type 2 diabetes, uncontrolled, with ayad l manifestation 12/04/2015 HTN (hypertension) 12/04/2015 Erectile dysfunction 12/04/2015 Microalbuminuria 12/04/2015 Type 2 diabetes mellitus with vascular d isease 12/04/2015 Polyneuropathy 12/04/2015 Diabetes mellitus type 2 with neurologic al manifestations 12/04/2015 Hypogonadism male 12/04/2015 Family History Medical History Relation Name Comments Diabetes Brother 2 Diabetes Father PA Father from [place] at age 58 Diabetes Mother some heart issue [Other] Mother he art working only 10% , no PA Diabetes Sister 2 Relation Name Status Comments [...] 06/20/2024 INFLUENZA (Season Ended) 2025 Care Teams Silk Examiner Relationship Specialty Start Date End Date Gabriel Ag MD [address] [place] [address] PCP - General Internal Medicine 09/03/15
== END 2024-11-29 10:48 | disposition home or self-care (01) ==
LOC: HO.BBR 10:47
PROVIDERS: Visit Provider Urology
DX: R71.8 Other abnormality of red blood cells (principal)
CPT/HCPCS: 85014; 85018; 99195

== ENCOUNTER → 2024-12-03 23:59 | Outpatient (BNV) | payer OTHER, SELFPAY ==
--- NOTE | 2024-12-05 14:58 | A.OFFVIS_ITS ---
Intake Visit Reasons: Remote HF monitoring- [employer] Allergies avocado (AVOCADO) Allergy (Severe, Verified 08/14/24 10:25) HIVES/SOB lisinopril Allergy (Severe, Verified 08/14/24 10:25) Unknown passion fruit (PASSION FRUIT) Allergy (Severe, Verified 08/14/24 10:25) HIVES/SOB sacubitril (Entresto) Allergy (Severe, Verified 08/14/24 10:25) Unknown valsartan (Entresto) Allergy (Severe, Verified 08/14/24 10:25) Unknown soy (SOY) Allergy (Unknown, Verified 08/14/24 10:25) SWELLING acetaminophen (From Percocet) Adverse Reaction (Verified 08/14/24 10:25) Gastrointestinal Upset oxycodone (From Percocet) Adverse Reaction (Verified 08/14/24 10:25) Gastrointestinal Upset PFSH Medical History HFrEF (heart failure with reduced ejection fraction) ICD (implantable cardioverter-defibrillator) in place Nonischemic cardiomyopathy HTN (hypertension) Diabetes mellitus CAD (coronary artery disease) Surgical History History of carpal tunnel surgery H/O colonoscopy History of cardiac cath (~2017) Family History Father No problems noted. Mother No problems noted. Social History Household Members: Spouse Alcohol intake: former Patient Tobacco Use Status: Former Tobacco user Second Hand Smoke Exposure: No Office Procedures Cardiac Device Check Cardiac Device Check Details: Remote heart failure report generated 12/03/2024. Heart failure parameters are within normal limits [id number] Cardiac Device Interrogation, cardio physiologic monitor Procedure code (CPT) selection complete Assessment & Plan Assessment & Plan (1) ICD (implantable cardioverter-defibrillator) in place: Comment: implanted 2018-[employer] Code(s): Z95.810 - Presence of automatic (implantable) cardiac defibrillator Category: Medical Plan: See above Coding Level of Care Code Procedure Only Diagnoses ICD (implantable cardioverter-defibrillator) in place Z95.810 CPT Codes Cardiac Device Check - Cardiac Device 15: [id number] Cardiac Device Interrogation, cardio physiologic monitor ([id number])
== END ==
PROVIDERS: Visit Provider Internal Medicine Cardiovascular Disease
DX: I50.9 Heart failure, unspecified (principal); Z95.810 Presence of automatic (implantable) cardiac defibrillator
CPT/HCPCS: 93297

== ENCOUNTER 2024-12-07 12:23 | Emergency (ER) | payer OTHER, SELFPAY ==
--- NOTE | ~2024-12-07 | CT_ITS ---
EXAMINATION: CT ANGIOGRAM HEAD NECK CLINICAL INFORMATION: Right leg ataxia, difficulty walking COMPARISON: CT head from 2 hours earlier TECHNIQUE: The degree of stenosis determined by NASCET criteria. This CT examination was performed using dose optimization techniques as appropriate, variously including the following: *Automated exposure control *Adjustment of mA and/or kV according to patient size (this includes techniques or standardized protocols for targeted exams where dose is matched to indication/reason for exam; i.e. extremities or head) *Use of iterative reconstruction technique TECHNIQUE: Noncontrast axial imaging of the head was performed. This was followed by test bolus sequences and head and neck intravenous bolus administration of 70mL of Omnipaque 350. Helical imaging was performed in the axial plane from the aortic arch to the skull vertex. The data was processed at the angio technologist's workstation for generation of MIP sequences. Angled MIPs and volume rendered reformatted images were also generated at an offline 3D workstation. Stenoses are assessed in accordance with NASCET criteria unless otherwise indicated. This CT examination was performed using dose optimization techniques as appropriate, variously including the following: *Automated exposure control *Adjustment of mA and/or kV according to patient size (this includes techniques or standardized protocols for targeted exams where dose is matched to indication/reason for exam; i.e. extremities or head) *Use of iterative reconstruction technique DLP: 723 mGy*cm FINDINGS: NECK CTA: -AORTIC ARCH: Normal in caliber. Mild atheromatous calcification. Three-vessel branching pattern. -GREAT VESSEL ORIGINS: Widely patent. No stenosis. -RIGHT COMMON CAROTID ARTERY: Normal in course and caliber to the level of the bifurcation. -CERVICAL RIGHT INTERNAL CAROTID ARTERY: Small calcified plaque is present in the carotid bulb. Normal opacification without focal stenosis or occlusion. -LEFT COMMON CAROTID ARTERY: Normal in course and caliber to the level of the bifurcation. -CERVICAL LEFT INTERNAL CAROTID ARTERY: Patent without hemodynamically significant stenosis. -CERVICAL RIGHT VERTEBRAL ARTERY: Codominant. Normal in course and caliber into the skull base. -CERVICAL LEFT VERTEBRAL ARTERY: Origin is obscured by motion artifact. Codominant. Normal in course and caliber into the skull base. OTHER, SOFT TISSUES: -No lymphadenopathy or mass. No abnormal fluid collection or soft tissue swelling. -Normal thyroid. -Imaged superior mediastinal structures normal. -Imaged lung apices clear. CTA OF THE BRAIN: -INTRACRANIAL INTERNAL CAROTID ARTERIES: No focal stenosis or occlusion. Small focal calcified plaques are present in the distal internal carotid arteries. -RIGHT ANTERIOR CEREBRAL ARTERY: Normal A1 segment.. Normal arborization of the distal segments. -LEFT ANTERIOR CEREBRAL ARTERY: Normal A1 segment.. Normal arborization of the distal segments. -ANTERIOR COMMUNICATING ARTERY: Normal. -RIGHT MIDDLE CEREBRAL ARTERY: Normal M1 segment of the MCA without focal stenosis or occlusion. Normal bifurcation. Normal arborization of the distal segments. -LEFT MIDDLE CEREBRAL ARTERY: Normal M1 segment of the MCA without focal stenosis or occlusion. Normal bifurcation. Normal arborization of the distal segments. -RIGHT VERTEBRAL ARTERY V4: Normal in course and caliber. Focal calcified plaque is present without hemodynamically significant stenosis. Normal PICA branch. -LEFT VERTEBRAL ARTERY V4: Normal in course and caliber. Focal calcified plaque at the level of the clivus without hemodynamically significant stenosis (<50%). Normal PICA branch. -BASILAR ARTERY: Normal without focal stenosis or occlusion. Normal appearance of the proximal superior cerebellar arteries. Normal basilar tip. -RIGHT POSTERIOR CEREBRAL ARTERY: Patent P1 segment. Normal opacification of the distal ELECTRICAL LINEWORKER segments. -LEFT POSTERIOR CEREBRAL ARTERY: origin. Normal opacification of the distal ELECTRICAL LINEWORKER segments. -POSTERIOR COMMUNICATING ARTERIES: The right is small but present. Left is patent.. Normal opacification of the superior sagittal, straight, transverse, and sigmoid sinuses. No venous thrombosis. No space-occupying hemorrhage or definite evolving infarct. CT/CT angio head neck IMPRESSION: CTA NECK: No hemodynamically significant stenosis CTA HEAD: No hemodynamically significant stenosis. Focal less than 50% stenosis of the left vertebral artery at the level of the clivus. Dr. Beverly notified Electronically signed by: Aris Delaney MD 12/07/2024 04:20 PM EDT
--- NOTE | ~2024-12-07 | CT_ITS ---
EXAMINATION: CT HEAD WITHOUT CONTRAST CLINICAL INFORMATION: dizzy, blurred vision, headache COMPARISON: May 12, 2024. TECHNIQUE: Contiguous axial imaging was performed from the skull base to vertex without intravenous administration of contrast. This CT examination was performed using dose optimization techniques as appropriate, variously including the following: *Automated exposure control *Adjustment of mA and/or kV according to patient size (this includes techniques or standardized protocols for targeted exams where dose is matched to indication/reason for exam; i.e. extremities or head) *Use of iterative reconstruction technique DLP: 694 mGy-cm FINDINGS: Old cortical disruption in the nasal bones. No acute cortical disruption in the bony calvarium. No acute intracranial hemorrhage, mass effect midline shift, hydrocephalus or herniation. Cornejo-white matter differentiation is normal. Posterior cranial fossa contents demonstrated no acute intracranial hemorrhage. There is an old lacunar infarct right yary. Bilateral multifocal patchy deep periventricular white matter hypodensities. Old lacunar infarct in the basal ganglia. Vascular calcifications, intracranial. Mucosal thickening, ethmoid cells. For pneumatization frontal sinuses. Tympanic cavities and mastoid cells are aerated. CT/CT head/brain wo IV con IMPRESSION: No acute fracture, bony calvarium. No acute hemorrhage. 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 Small vessel disease. Electronically signed by: Jorge Simon MD 12/07/2024 01:45 PM EDT
[2024-12-07 12:36] VITALS: BP 139/66; PULSE 73; RESP 18; TEMP 36.3; O2SAT 96; BMI 31.3
--- NOTE | 2024-12-07 12:37 | ED.DIZZY ---
HPI - Dizziness General Chief Complaint: Neuro Symptoms/Deficit Stated Complaint: Dizzy, blur vis, abd pain, Headache Time Seen by Provider: 12/07/24 13:39 History of Present Illness ED Provider: Siria SHARPE Narrative: The patient is a 59-year-old male with a history of a nonischemic cardiomyopathy. He has an implanted [employer] ICD. he says that 3 days ago he had fairly abrupt onset of a sense of dizziness and double vision and a mild headache and photophobia. He thinks this started 3 days ago on Tuesday. He says that he was home all day on Tuesday and yesterday on because he did not feel he could go out with the symptoms. He also felt that he could not drive with the symptoms. Today a family member drove him to the hospital for evaluation of the symptoms. He reports a mild headache, significant photophobia, a sense of double vision (he describes vertical diplopia, one on top of the other), mild difficulty walking. His symptoms have been persistent over the last 3 days. No fever, sweats, chills. Related Data Home Medications ?Medication ?Instructions ?Recorded ?Confirmed albuterol sulfate 90 mcg/actuation 1 inh inhalation Q4H PRN Shortness 10/13/20 03/12/24 aerosol inhaler Of Breath cholecalciferol (vitamin D3) 50 50 mcg PO DAILY 10/13/20 03/12/24 mcg (2,000 unit) capsule cyanocobalamin (vitamin B-12) 1,000 mcg PO DAILY 10/13/20 03/12/24 1,000 mcg tablet zolpidem 5 mg tablet 5 mg PO BEDTIME 10/13/20 03/12/24 blood sugar diagnostic (FreeStyle #10 ea 08/05/21 03/12/24 Lite Strips) lancets 33 gauge (TRUEplus Lancets) #100 ea 08/05/21 03/12/24 empagliflozin 25 mg tablet 25 mg PO DAILY 04/21/22 03/12/24 (Jardiance) quetiapine 50 mg tablet 50 mg PO BEDTIME 04/21/22 03/12/24 acetaminophen 300 mg-codeine 60 mg 1 tab PO TID PRN 12/23/22 03/12/24 tablet budesonide-formoterol HFA 160 2 puff inhalation BID 12/23/22 03/12/24 mcg-4.5 mcg/actuation aerosol inhaler (Symbicort) citalopram 10 mg tablet 10 mg PO DAILY 12/23/22 03/12/24 dulaglutide 1.5 mg/0.5 mL mg subcut 12/23/22 03/12/24 subcutaneous pen injector (Trulicity) metformin 1,000 mg tablet 1,000 mg PO 12/23/22 03/12/24 Previous Rx's ?Medication ?Instructions ?Recorded diclofenac sodium 1 % topical gel 4 g topical QID PRN pain 30 days 11/03/21 (Arthritis Pain (diclofenac)) #100 grams esomeprazole magnesium 40 mg 40 mg PO TID 14 days #42 caps 11/20/21 capsule,delayed release (Nexium) gabapentin 300 mg capsule See Rx Instructions .Route 08/04/22 .COMPLEX #30 caps insulin syringe-needle U-100 1 mL #30 ea 12/29/23 25 gauge x 5/8 aspirin 81 mg tablet,delayed 81 mg PO QAM #90 tabs 01/02/24 release omeprazole 20 mg capsule,delayed 20 mg PO DAILY #30 caps 01/30/24 release atorvastatin 40 mg tablet 40 mg PO BEDTIME #90 tabs 02/27/24 cyclobenzaprine 10 mg tablet 10 mg PO TID PRN muscle spasm #20 05/12/24 tabs furosemide 40 mg tablet 40 mg PO QAM #90 tabs 07/09/24 sildenafil 100 mg tablet 100 mg PO DAILY PRN sexual 08/14/24 activity 30 days #20 tabs tadalafil 10 mg tablet 10 mg PO DAILY sexual activity 90 08/14/24 days #90 tabs tadalafil 20 mg tablet 20 mg PO ONCE PRN sexual activity 08/14/24 30 days #30 tabs testosterone cypionate 200 mg/mL 80 mg (0.4 mL) subcut QWEEK 28 08/14/24 intramuscular oil days #2 mL carvedilol 25 mg tablet 25 mg PO BID #180 tabs 09/10/24 hydralazine 50 mg tablet 50 mg PO BID #180 tabs 10/11/24 Allergies Allergy/AdvReac Type Severity Reaction Status Date / Time avocado (AVOCADO) Allergy Severe HIVES/SOB Verified 12/07/24 12:39 lisinopril Allergy Severe Unknown Verified 12/07/24 12:39 passion fruit (PASSION FRUIT) Allergy Severe HIVES/SOB Verified 12/07/24 12:39 sacubitril (Entresto) Allergy Severe Unknown Verified 12/07/24 12:39 valsartan (Entresto) Allergy Severe Unknown Verified 12/07/24 12:39 soy (SOY) Allergy Unknown SWELLING Verified 12/07/24 12:39 acetaminophen (From Percocet) AdvReac Gastrointestinal Verified 12/07/24 12:39 Upset oxycodone (From Percocet) AdvReac Gastrointestinal Verified 12/07/24 12:39 Upset Review of Systems Review of Systems: Yes all other systems are reviewed and are negative [facility] Past Medical History Medical History HFrEF (heart failure with reduced ejection fraction) ICD (implantable cardioverter-defibrillator) in place Nonischemic cardiomyopathy HTN (hypertension) Diabetes mellitus CAD (coronary artery disease) Surgical History History of carpal tunnel surgery H/O colonoscopy History of cardiac cath (~2017) Family History Family History Father No problems noted. Mother No problems noted. Social History Social History Household Members: Spouse Alcohol intake: former Patient Tobacco Use Status: Former Tobacco user Smoked in Last 30 Days: No Second Hand Smoke Exposure: No Advance Directives: No Advance Directives Information Provided: Yes Physical Exam Vital Signs: Vital Signs: Last Vital Signs Temp 97.5 F 12/07/24 18:05 Pulse 67 12/07/24 18:05 Resp 13 12/07/24 18:05 BP 111/58 L 12/07/24 18:05 Pulse Ox 96 12/07/24 18:05 O2 Del Method Room Air 12/07/24 18:05 BMI result Body Mass Index 31.3 Const: Other: The patient is a 59-year-old male who was awake, alert, pleasant, cooperative. He did not appear obviously ill. He was quite talkative. However he did seem quite photophobic and I had to keep the lights dimmed during our conversation. HEENT: Other: Face is symmetrical. Mucous membranes moist. Tongue is midline. Eyes: Other: Pupils were fairly small. There was no obvious extraocular movement abnormality. lateral gaze was intact. The patient reported vertical diplopia When he had both eyes open. He had no diplopia in either eye evaluated separately. He said that the vision in his left eye was somewhat blurry but he says that his left eye is his worse eye. He has glasses but he does not have glasses with him. Neck: Neck: Yes normal visual inspection, Yes full ROM and Yes no JVD Resp: Effort & Inspection: normal respiratory effort Auscultation: clear to auscultation bilaterally Cardio: Rate: regular rate Rhythm: regular rhythm Heart sounds: S1 normal heart sound present and S2 normal heart sound present GI: Other: Abdomen is soft and nontender Skin: Other: skin is dry and unremarkable Neuro: Other: the patient is awake and alert with a normal mental status. He has normal cognition. Normal orientation. He is quite talkative. Pupils were small but equal. Extraocular movements seemed intact. He described having vertical diplopia when he had both of his eyes open. He had no diplopia in either eye alone. His face is symmetrical. His speech is clear and normal. He has intact strength in his extremities. He has no pronator drift. Finger-nose was normal. When I 1st tested his legs he felt that he was having some difficulty with the right heel-menard movements although this was only minimally apparent to me. Toes go down bilaterally. The patient had a very mild gait abnormality. He did not seem frankly unstable or ataxic. Extrem: Other: No calf swelling or tenderness, no asymmetry, no pedal edema. Course Course Course Narrative: This is a Rapid Medical Examination (RME) performed by Chepe Markham PA-C in triage. Full HPI, ROS, assessment and treatment plan per primary provider in the Main ED. 59 yo male with history of DM, nonischemic cardiomyopathy s/p AICD, HTN, CAD who presents to the ER for evaluation of 3 days of worsening dizziness and blurred vision. He states he is seeing triple, cant walk well. He has an upset stomach and headache. His glucose was 120 this morning. No chest pain, SOB. Unsteady gait into the triage. Strength equal and symmetrical throughout, CN II-XII intact. Normal speech. Plan: CT head, labs, EKG Medications Administered Discontinued Medications Generic Name Dose Route Start Last Admin Trade Name Charles PRN Reason Stop Dose Admin Diphenhydramine HCl 12.5 mg 12/07/24 14:13 12/07/24 14:25 Diphenhydramine Hcl 50 Mg/Ml Vial IVPUSH 12/07/24 14:14 12.5 mg ONCE ONE Administration Sodium Chloride 1,000 mls @ 999 mls/hr 12/07/24 14:15 12/07/24 15:30 Ns IV 12/07/24 15:15 Infused .Q1H1M CHILANGO Infusion Iohexol 100 ml 12/07/24 15:47 12/07/24 15:47 Iohexol 350 Mg/Ml 100 Ml Infus..Btl IV 12/07/24 15:48 70 ml ONCE ONE Administration Metoclopramide HCl 10 mg 12/07/24 14:13 12/07/24 14:25 Metoclopramide Hcl 10 Mg/2 Ml Vial IVPUSH 12/07/24 14:14 10 mg ONCE ONE Administration Medical Decision Making Medical Decision Making MDM Narrative: The patient is a 59-year-old male with a history of a nonischemic cardiomyopathy who has had symptoms for about 3 days characterized by a mild headache, a sense of dizziness, a sense of vertical diplopia, and significant photophobia. He does not report a history of similar symptoms in the past. On my initial exam he reported a sense of having difficulty with heel-menard when using his right leg. Otherwise he had no obvious focal finding. However he was very obviously photophobic and he complained of a mild headache. This made me think that perhaps his symptoms could potentially be a migraine syndrome. The patient had a negative noncontrast head CT Which has been ordered at triage. He was given a dose of IV metoclopramide and diphenhydramine and IV fluids as treatment for a possible migraine syndrome. In the meantime I also ordered a CT angiogram of the head and neck. The CT angiogram of the head and neck did not show any hemodynamically significant lesions and was essentially negative. During that time the the patient reported improvement in his symptoms after treatment with IV fluids, metoclopramide, and Diphenhydramine. His photophobia improved. His headache improved. His dizziness improved. His vertical diplopia resolved. I re-evaluated his gait and his gait seemed better and he felt that he was now walking normally. I considered trying to get an MRI of the brain to be more certain that this was not a stroke syndrome. The patient has a Biotronik defibrillator which was placed in 2017. I reached out to the [employer] rep who told me that he thought that the device was probably MR conditional. there were no MR slots available today. Tomorrow is Tuesday. Apparently arranging an MR for an MRI conditional device might not be achievable Over the weekend. Given the improvement the patient had with migraine treatment my suspicion for stroke is fairly low. Ultimately I felt that the patient could be discharged with a plan to continue his baby aspirin daily and to follow up with his PCP Next week. He should return to the emergency room if he has significantly worse before then. The patient is device card is quite old and illegible. I asked the [employer] unit support representative to send the patient a new card. Apparently the device card can be registered with our MRI department for facilitation of any future MRIs that might be necessary. The patient seemed comfortable with the prosthetic being discharged. The patient's was with him and acknowledged that he seemed much better. Lab Data 12/07/24 12:51 12/07/24 12:51 Labs: Lab Results 12/07/24 12/07/24 Range/Units 12:51 13:40 WBC 12.2 H (4.8-10.8) X10*3/uL RBC 6.61 H (4.60-5.80) X10*6/uL Hgb 15.1 (14.0-18.0) g/dl Hct 48.7 (42.0-52.0) % MCV 73.7 L (80.0-98.0) fL MCH 22.8 L (27.0-33.0) pg MCHC 31.0 (31.0-36.0) g/dl RDW 18.3 H (11.0-16.0) % Plt Count 289 (160-400) X10*3/uL MPV 10.4 (9.4-12.4) fL Immature Gran % (Auto) 0.2 (0.0-0.4) % Neut % (Auto) 60.8 (45-73) % Lymph % (Auto) 22.6 (20-40) % Morrill % (Auto) 8.1 (2-11) % Eos % (Auto) 7.5 H (0-4) % Baso % (Auto) 0.8 (0-2) % Lymph # (Auto) 2.8 (1.2-4.9) X10*3/uL Morrill # (Auto) 1.0 (0.1-1.2) X10*3/uL Eos # (Auto) 0.9 H (0.0-0.4) X10*3/uL Baso # (Auto) 0.1 (0.0-0.2) X10*3/uL Abs Immat Gran (auto) 0.03 (0.00-0.03) X10*3/uL Absolute Neuts (auto) 7.4 (2.0-8.3) x10*3/uL Absolute Nucleated RBC 0.000 (0.0-0.012) X10*3/uL Nucleated RBC % (auto) 0.0 (0.0-0.2) /100WBC Sodium 137 (135-145) mmol/L Potassium 4.3 (3.3-5.1) mmol/L Chloride 103 (96-108) mmol/L Carbon Dioxide 24 (22-29) mmol/L Anion Gap 14 (12-20) BUN 13 (9-16) mg/dL Creatinine 0.93 (0.5-1.4) mg/dL Estim Creat Clear Calc 93.6 Estimated GFR > 60 Random Glucose 202 H (60-115) mg/dL Calcium 9.2 (8.4-10.2) mg/dL Magnesium 2.2 (1.6-2.6) mg/dL Total Bilirubin 0.5 (0.0-1.0) mg/dL Direct Bilirubin 0.2 (0.0-0.5) mg/dL AST 29 (5-37) U/L ALT 17 (0-40) U/L Alkaline Phosphatase 122 H (39-117) U/L C-Reactive Protein 2.59 H (< or = 0.50) mg/dL B-Natriuretic Peptide < 10 (<100) pg/mL Total Protein 7.2 (6.5-8.0) g/dL Albumin 4.2 (3.5-5.0) g/dL Urine Color Yellow Urine Appearance Clear Urine pH 6.5 (5.0-9.0) Ur Specific [place] 1.025 (1.005-1.025) Urine Protein Negative (Neg-Trace) mg/dL Urine Glucose (UA) >=1000 H (Negative) mg/dL Urine Ketones Negative (Negative) mg/dL Urine Blood Negative (Negative) Urine Nitrite Negative (Negative) Ur Leukocyte Esterase Negative (Negative) Urine RBC 0-2 (0-2) /HPF Urine WBC 0-5 (0-5) /HPF Ur Squamous Epith Cells 0-2 (0-2) /HPF Urine Bacteria None Seen (None Seen) Hyaline Casts 0-2 (0-2) /LPF Independent Interpretation I performed an independent interpretation of an: EKG Interpretation: EKG at 1246 shows normal sinus rhythm at 75 beats per minute. No acute findings. Similar to previous EKG. Discharge Plan Discharge Clinical Impression: Double vision, Photophobia, Difficulty walking, Headache Patient Disposition: Home, Self-Care Additional Instructions: Your symptoms seemed to have improved with treatment for what may have been a migraine headache. Please plan on resting and taking it easy over the weekend and continuing your regular medications with the exception of holding metformin as recommended by the CAT scan technicians. Please make sure that you take an aspirin daily as you has been doing. Please plan on contacting your optical technician (your eye doctor) on Tuesday to arrange a follow up appointment to discuss your visual symptoms. Please also contact your primary care doctor for a follow up appointment to discuss this episode further as well. I have spoken to the unit support representative for your [employer] device. He will be sending you a new device card since your current car it seems to have aged poorly. A new card will help in the future if an MRI is required. If you feel significantly worse please return to the emergency room. Prescriptions: No Action esomeprazole magnesium [Nexium] 40 mg capsule,delayed release(DR/EC) 40 mg PO TID 14 Days Qty: 42 0RF gabapentin 300 mg capsule See Rx Instructions .ROUTE .COMPLEX Qty: 30 6RF Dose Instruction: TAKE 1 CAPSULE BY MOUTH AT BEDTIME Rx Instructions: TAKE 1 CAPSULE BY MOUTH AT BEDTIME (DME) insulin syringe-needle U-100 1 mL 25 gauge x 5/8 syringe See Rx Instructions .MEDSUPPLY Qty: 30 1RF Rx Instructions: Use once a week to inject testosterone aspirin 81 mg tablet,delayed release (DR/EC) 81 mg PO QAM Qty: 90 3RF omeprazole 20 mg capsule,delayed release(DR/EC) 20 mg PO DAILY Qty: 30 5RF atorvastatin 40 mg tablet 40 mg PO BEDTIME Qty: 90 3RF furosemide 40 mg tablet 40 mg PO QAM Qty: 90 3RF tadalafil 10 mg tablet 10 mg PO DAILY 90 Days Qty: 90 1RF sildenafil 100 mg tablet 100 mg PO DAILY PRN (Reason: sexual activity) 30 Days Qty: 20 5RF Rx Instructions: administer 30 minutes to 4 hours before activity carvedilol 25 mg tablet 25 mg PO BID Qty: 180 3RF hydralazine 50 mg tablet 50 mg PO BID Qty: 180 3RF cyclobenzaprine 10 mg tablet 10 mg PO TID PRN (Reason: muscle spasm) Qty: 20 0RF (DME) lancets [TRUEplus Lancets] 33 gauge misc See Rx Instructions topical .MEDSUPPLY Qty: 100 Rx Instructions: As directed (DME) FreeStyle Lite Strips Strip See Rx Instructions Not Applicable QID Qty: 10 Rx Instructions: As directed zolpidem 5 mg tablet 5 mg PO BEDTIME cholecalciferol (vitamin D3) 50 mcg (2,000 unit) capsule 50 mcg PO DAILY cyanocobalamin (vitamin B-12) 1,000 mcg tablet 1,000 mcg PO DAILY albuterol sulfate 90 mcg/actuation HFA aerosol inhaler 1 inh inhalation Q4H PRN (Reason: Shortness Of Breath) Jardiance 25 mg tablet 25 mg PO DAILY quetiapine 50 mg tablet 50 mg PO BEDTIME diclofenac sodium [Arthritis Pain (diclofenac)] 1 % gel 4 g topical QID PRN (Reason: pain) 30 Days Qty: 100 3RF Trulicity 1.5 mg/0.5 mL pen injector subcut citalopram 10 mg tablet 10 mg PO DAILY budesonide-formoterol [Symbicort] 160-4.5 mcg/actuation HFA aerosol inhaler 2 puff inhalation BID metformin 1,000 mg tablet 1,000 mg PO acetaminophen-codeine 300-60 mg tablet 1 tab PO TID PRN testosterone cypionate 200 mg/mL oil 80 mg subcut QWEEK 28 Days Qty: 2 5RF tadalafil 20 mg tablet 20 mg PO ONCE PRN (Reason: sexual activity) 30 Days Qty: 30 0RF Rx Instructions: On demand medication take 60 minutes before intended activity Referrals: [facility] [Provider Group] Referral Note: double vision, visual blurriness Adeline Doll MD [Physician, Ophthalmology] Carmen Mejia FNP [Primary Care Provider, Medical] Interventions: ED Discharge Assessment Last Done: 12/07/24 18:05 Discharge Date/Time: 12/07/24 18:06 Print Language: [place]
--- NOTE | 2024-12-07 12:40 | ECG_ITS ---
Test Reason : dizziness Blood Pressure : */* mmHG Vent. Rate : 75 BPM Atrial Rate : 75 BPM P-R Int : 154 ms QRS Dur : 86 ms QT Int : 382 ms P-R-T Axes : 68 66 47 degrees QTcB Int : 426 ms Normal sinus rhythm Normal ECG When compared with ECG of 15-Aug-2019 10:40, No significant change was found Referred By: Eliane Markham Electronically Signed By: Abel Garibay
[2024-12-07 12:58] LABS: MANUAL DIFF FLAG NO
[2024-12-07 13:00] VITALS: BP 118/61; PULSE 75; RESP 18; O2SAT 96
[2024-12-07 13:00] LABS: Basophils Absolute Auto 0.1 X10*3/uL (0.0-0.2); Basophils Percent Auto 0.8 % (0-2); Eosinophils Absolute Auto 0.9 X10*3/uL (0.0-0.4); Eosinophils Percent Auto 7.5 % (0-4); Hematocrit 48.7 % (42.0-52.0); Hemoglobin 15.1 g/dl (14.0-18.0); Imm Gran Abs Auto 0.03 X10*3/uL (0.00-0.03); Imm Gran Pct Auto 0.2 % (0.0-0.4); Lymphocytes Absolute Auto 2.8 X10*3/uL (1.2-4.9); Lymphocytes Percent Auto 22.6 % (20-40); Mean Corpuscular Hemoglobin 22.8 pg (27.0-33.0); Mean Corpuscular Volume 73.7 fL (80.0-98.0); Mean Platelet Volume 10.4 fL (9.4-12.4); Monocytes Percent Auto 8.1 % (2-11); Neutrophils Absolute Auto 7.4 x10*3/uL (2.0-8.3); Neutrophils Percent Auto 60.8 % (45-73); Platelet Count 289 X10*3/uL (160-400); Red Blood Count 6.61 X10*6/uL (4.60-5.80); Red Cell Distribution Width 18.3 % (11.0-16.0); White Blood Count 12.2 X10*3/uL (4.8-10.8)
--- NOTE | 2024-12-07 13:09 | PC.NURSE ---
Addendum entered by Nicole Ortiz RN 12/07/24 13:10: Patient is a 59 yo male with history of DM, nonischemic cardiomyopathy s/p AICD, HTN, CAD who presents to the ER for evaluation of 3 days of worsening dizziness and blurred vision with assoc unsteady gait and photophobia. He states he is seeing triple. He also has an upset stomach and headache. Patient alert and oriented. c/o dizziness, room spinning and visual disturbance which improves when he covers one eye. No additional neuro deficits noted. Lungs clear bilat. Respirations even and non-labored. Abdome sl firm, distended with positive bowel sounds. Positive pedal pulses with no edema. Original Note: Medical History HFrEF (heart failure with reduced ejection fraction) ICD (implantable cardioverter-defibrillator) in place Nonischemic cardiomyopathy HTN (hypertension) Diabetes mellitus CAD (coronary artery disease)
[2024-12-07 13:16] LABS: Alanine Aminotransferase 17 U/L (0-40); Albumin Level 4.2 g/dL (3.5-5.0); Alkaline Phosphatase 122 U/L (39-117); Anion Gap 14 (12-20); Aspartate Amino Transferase 29 U/L (5-37); Bilirubin Direct 0.2 mg/dL (0.0-0.5); Bilirubin Total 0.5 mg/dL (0.0-1.0); Blood Urea Nitrogen 13 mg/dL (9-16); Calcium 9.2 mg/dL (8.4-10.2); Carbon Dioxide 24 mmol/L (22-29); Chloride 103 mmol/L (96-108); Creatinine Clr Calc Pharmacy 93.6; Estimated Glomerular Filt Rate > 60; Glucose Random 202 mg/dL (60-115); Magnesium 2.2 mg/dL (1.6-2.6); Potassium 4.3 mmol/L (3.3-5.1); Sodium 137 mmol/L (135-145); Total Protein 7.2 g/dL (6.5-8.0)
[2024-12-07 13:37] VITALS: BP 139/65; RESP 20; O2SAT 92
[2024-12-07 13:50] LABS: Appearance Urine Clear; Color Urine Yellow; Glucose Urine UA >=1000 mg/dL (Negative); Leukocyte Esterase Urine Negative (Negative); Nitrite Urine Negative (Negative); PH 6.5 (5.0-9.0); Specific Gravity - Urine 1.025 (1.005-1.025); UMIC TRIGGER UACC YES; Urine Blood Negative (Negative); Urine Ketones Negative (Negative); Urine Protein Negative (Neg-Trace)
[2024-12-07 13:53] LABS: Bacteria Urine None Seen (None Seen); Hyaline Casts Urine 0-2 /LPF (0-2); RBC Urine 0-2 /HPF (0-2); Squamous Epithelial Cell Urine 0-2 /HPF (0-2); WBC Urine 0-5 /HPF (0-5)
[2024-12-07] MEDS: diphenhydrAMINE HCL 50 MG/ML VIAL 12.5 MG IVPUSH (14:25)
[2024-12-07] MEDS: Metoclopramide HCl 10 MG/2 ML VIAL IVPUSH (14:25)
[2024-12-07] MEDS: 0.9 % Sodium Chloride 1,000 ML 999 ML IV (14:25)
[2024-12-07 14:54] LABS: C Reactive Protein 2.59 mg/dL (< or = 0.50)
[2024-12-07 15:10] LABS: B Type Natriuretic Peptide < 10 pg/mL (<100)
--- NOTE | 2024-12-07 15:10 | PC.NURSE ---
Spoke with Silverio Owen who stated the AICD is MRI capable, but needs to be set in MRI mode.
[2024-12-07] MEDS: iohexoL 350 MG/ML 100 ML INFUS..BTL IV (15:47)
[2024-12-07 16:15] VITALS: BP 111/58; PULSE 67; RESP 13; TEMP 36.4; O2SAT 96
[2024-12-07 18:05] VITALS: BP 111/58; PULSE 67; RESP 13; TEMP 36.4; O2SAT 96
== END 2024-12-07 18:06 | disposition home or self-care (01) ==
PROVIDERS: Physician Assistant; Emergency Provider Emergency Medicine; PCP Registered Nurse
DX: H53.2 Diplopia (principal); R42 Dizziness and giddiness; R51.9 Headache, unspecified; R26.2 Difficulty in walking, not elsewhere classified; H53.143 Visual discomfort, bilateral; R10.2 Pelvic and perineal pain; I25.10 Atherosclerotic heart disease of native coronary artery without angina pectoris; I10 Essential (primary) hypertension; E11.9 Type 2 diabetes mellitus without complications; Z79.899 Other long term (current) drug therapy; Z79.4 Long term (current) use of insulin; Z87.891 Personal history of nicotine dependence
CPT/HCPCS: 36415; 70450; 70496; 70498; 80048; 80076; 81001; 83735; 83880; 85025; 86140; 93005; 96361; 96374; 96375; 99284; 99285; J1200; J2765; Q9967

== ENCOUNTER → 2024-12-07 12:40 | Outpatient (BNV) | payer OTHER, SELFPAY | PROVIDERS: Emergency Provider Emergency Medicine; PCP Registered Nurse; Visit Provider Radiology Diagnostic Radiology | DX: I65.02 Occlusion and stenosis of left vertebral artery (principal); I67.2 Cerebral atherosclerosis | CPT/HCPCS: 70450; 70496; 70498 ==

== ENCOUNTER → 2024-12-07 12:40 | Outpatient (BNV) | payer OTHER, SELFPAY | PROVIDERS: Emergency Provider Emergency Medicine; PCP Registered Nurse; Visit Provider Internal Medicine Cardiovascular Disease | DX: R42 Dizziness and giddiness (principal) | CPT/HCPCS: 93010 ==

== ENCOUNTER 2025-01-03 09:47 | Outpatient (REF) | payer OTHER, SELFPAY ==
--- OUTSIDE RECORDS SUMMARY | 2025-01-03 10:09 | XMS_ITS | Encounter Summary ---
Author Organization [employer] Address [address] [facility] 7t [place] [address] Care Team Providers Care Plant Safety Leader Name Role Phone [place] Carmen [facility] Primary Care Provider [phone] Encounter Details Date Type Department Care Team (Late Contact Info) Description 03/07/2023 Orders Only [facility]S [address] [place] [address] Shannon Sargent LPN Social History Tobacco Use [...] Department Care Team (Late Contact Info) Description 01/29/2025 11:00 AM EDT Office Visit [facility] MED[facility]INE [address] [place] [address] 02/25/2025 9:00 AM EDT Office Visit [facility] [address] [place] [address] Carmen Mejia [facility] [address] [place] [address] documented as of this encounter Visit Diagnoses Not on filedocumented in this encounter Additional Health Concerns Assessment Noted Time PHQ-9 Depression Total Score: 0 01/14/20 23 9:12 AM EDT documented as of this encounter Care Teams Plant Safety Leader Relationship Specialty Start Date End Date CarrolltonCarmen martinez FNP [address] [place] [address] PCP - General Family Medicine 03/18/21 documented as of this encounter
== END 2025-01-03 09:48 | disposition home or self-care (01) ==
LOC: HO.BBR 09:47
PROVIDERS: PCP Registered Nurse; Visit Provider Urology
DX: Z13.89 Encounter for screening for other disorder (principal)
CPT/HCPCS: 85018; 99195

== ENCOUNTER → 2025-01-11 23:59 | Outpatient (BNV) | payer OTHER, SELFPAY ==
--- NOTE | 2025-01-16 17:09 | MHC.OFFVIS ---
Intake Visit Reasons: Remote ICD check- [employer] Allergies avocado (AVOCADO) Allergy (Severe, Verified 12/07/24 12:39) HIVES/SOB lisinopril Allergy (Severe, Verified 12/07/24 12:39) Unknown passion fruit (PASSION FRUIT) Allergy (Severe, Verified 12/07/24 12:39) HIVES/SOB sacubitril (Entresto) Allergy (Severe, Verified 12/07/24 12:39) Unknown valsartan (Entresto) Allergy (Severe, Verified 12/07/24 12:39) Unknown soy (SOY) Allergy (Unknown, Verified 12/07/24 12:39) SWELLING acetaminophen (From Percocet) Adverse Reaction (Verified 12/07/24 12:39) Gastrointestinal Upset oxycodone (From Percocet) Adverse Reaction (Verified 12/07/24 12:39) Gastrointestinal Upset PFSH Medical History HFrEF (heart failure with reduced ejection fraction) ICD (implantable cardioverter-defibrillator) in place Nonischemic cardiomyopathy HTN (hypertension) Diabetes mellitus CAD (coronary artery disease) Surgical History History of carpal tunnel surgery H/O colonoscopy History of cardiac cath (~2017) Family History Father No problems noted. Mother No problems noted. Social History Household Members: Spouse Alcohol intake: former Patient Tobacco Use Status: Former Tobacco user Second Hand Smoke Exposure: No Office Procedures Cardiac Device Check Cardiac Device Check Details: Remote ICD report generated 01/11/2025. ICD function is adequate [id number] Cardiac Interrogation, implant defibrillator w/interim Procedure code (CPT) selection complete Assessment & Plan Assessment & Plan (1) ICD (implantable cardioverter-defibrillator) in place: Comment: implanted 2017-[employer]ronik Code(s): Z95.810 - Presence of automatic (implantable) cardiac defibrillator Category: Medical Plan: See above Coding Level of Care Code Procedure Only Diagnoses ICD (implantable cardioverter-defibrillator) in place Z95.810 CPT Codes Cardiac Device Check - Cardiac Device 13: [id number] Cardiac Interrogation, implant defibrillator w/interim ([id number])
== END ==
PROVIDERS: PCP Registered Nurse; Visit Provider Internal Medicine Cardiovascular Disease
DX: Z45.02 Encounter for adjustment and management of automatic implantable cardiac defibrillator (principal)
CPT/HCPCS: 93295

== ENCOUNTER → 2025-01-25 23:59 | Outpatient (BNV) | payer OTHER, SELFPAY ==
--- NOTE | 2025-01-29 12:17 | MHC.OFFVIS ---
Intake Visit Reasons: Remote HF monitoring- [employer] Allergies avocado (AVOCADO) Allergy (Severe, Verified 12/07/24 12:39) HIVES/SOB lisinopril Allergy (Severe, Verified 12/07/24 12:39) Unknown passion fruit (PASSION FRUIT) Allergy (Severe, Verified 12/07/24 12:39) HIVES/SOB sacubitril (Entresto) Allergy (Severe, Verified 12/07/24 12:39) Unknown valsartan (Entresto) Allergy (Severe, Verified 12/07/24 12:39) Unknown soy (SOY) Allergy (Unknown, Verified 12/07/24 12:39) SWELLING acetaminophen (From Percocet) Adverse Reaction (Verified 12/07/24 12:39) Gastrointestinal Upset oxycodone (From Percocet) Adverse Reaction (Verified 12/07/24 12:39) Gastrointestinal Upset PFSH Medical History HFrEF (heart failure with reduced ejection fraction) ICD (implantable cardioverter-defibrillator) in place Nonischemic cardiomyopathy HTN (hypertension) Diabetes mellitus CAD (coronary artery disease) Surgical History History of carpal tunnel surgery H/O colonoscopy History of cardiac cath (~2017) Family History Father No problems noted. Mother No problems noted. Social History Household Members: Spouse Alcohol intake: former Patient Tobacco Use Status: Former Tobacco user Second Hand Smoke Exposure: No Office Procedures Cardiac Device Check Cardiac Device Check Details: Remote heart failure report generated 01/26/2025. Heart failure parameters are within normal limits [id number] Cardiac Device Interrogation, cardio physiologic monitor Procedure code (CPT) selection complete Assessment & Plan Assessment & Plan (1) ICD (implantable cardioverter-defibrillator) in place: Comment: implanted 2018-[employer]ronik Code(s): Z95.810 - Presence of automatic (implantable) cardiac defibrillator Category: Medical Plan: See above Coding Level of Care Code Procedure Only Diagnoses ICD (implantable cardioverter-defibrillator) in place Z95.810 CPT Codes Cardiac Device Check - Cardiac Device 15: [id number]-[id number] Cardiac Device Interrogation, cardio physiologic monitor ([id number])
== END ==
PROVIDERS: PCP Registered Nurse; Visit Provider Internal Medicine Cardiovascular Disease
DX: Z45.02 Encounter for adjustment and management of automatic implantable cardiac defibrillator (principal)
CPT/HCPCS: 93297

== ENCOUNTER 2025-01-30 10:04 | Outpatient (REF) | payer OTHER, SELFPAY ==
--- OUTSIDE RECORDS SUMMARY | 2025-01-30 10:44 | XMS_ITS | Encounter Summary ---
Author Organization [employer] Address [address] [facility] 7t [place] [address] Care Team Providers Care Tool And Die Machinist Name Role Phone Carmen Mejia [facility] Primary Care Provider [phone] Encounter Details Date Type Department Care Team (Late Contact Info) Description 03/07/2023 Orders Only [facility] MED & PEDS [address] [place], [place] [phone] Shannon Sargent LPN Social History Tobacco Use [...] Department Care Team (Late Contact Info) Description 02/25/2025 9:00 AM EDT Office Visit [facility] MEDICINE [address] [place] [address] [facility] [address] [place] [address] 04/02/2025 11:00 AM EDT Office Visit [facility] [address] [place] [address] documented as of this encounter Visit Diagnoses Not on filedocumented in this encounter Additional Health Concerns Assessment Noted Time PHQ-9 Depression Total Score: 0 01/14/20 23 9:12 AM EDT documented as of this encounter Care Teams Tool And Die Machinist Relationship Specialty Start Date End Date [place] SpringsCarmen martinez FNP [address] [place] [address] PCP - General Family Medicine 03/18/21 documented as of this encounter
[2025-01-30 10:55] LABS: Hematocrit 49.7 % (42.0-52.0); Hemoglobin 14.9 g/dl (14.0-18.0); Mean Corpuscular HGB Conc 30.0 g/dl (31.0-36.0); Mean Corpuscular Hemoglobin 22.5 pg (27.0-33.0); Mean Corpuscular Volume 75.2 fL (80.0-98.0); NRBC Abs Auto 0.000 X10*3/uL (0.0-0.012); NRBC Pct Auto 0.0 /100WBC (0.0-0.2); Platelet Count 278 X10*3/uL (160-400); Red Blood Count 6.61 X10*6/uL (4.60-5.80); White Blood Count 10.9 X10*3/uL (4.8-10.8)
[2025-01-30 11:44] LABS: Prostate Specific Antigen 0.37 ng/mL (<0.05-4.0)
== END 2025-01-30 10:05 | disposition home or self-care (01) ==
LOC: HO.LAB 10:04
PROVIDERS: PCP Registered Nurse; Visit Provider Urology
DX: E29.1 Testicular hypofunction (principal); Z12.5 Encounter for screening for malignant neoplasm of prostate
CPT/HCPCS: 36415; 84153; 84403; 85027

== ENCOUNTER 2025-01-31 10:51 | Outpatient (REF) | payer OTHER, SELFPAY ==
--- OUTSIDE RECORDS SUMMARY | 2025-01-31 12:03 | XMS_ITS | Encounter Summary ---
Author Organization [employer] Address [address] [facility] 7t [place] [address] Care Team Providers Care Display Artist Name Role Phone Carmen Mejia [facility] Primary Care Provider [phone] Encounter Details Date Type Department Care Team (Late Contact Info) Description 03/07/2023 Orders Only [facility] MED & PEDS [address] [place], [place] [phone] Shannon Sargent LPN Social History Tobacco Use [...] Description 02/25/2025 9:00 AM EDT Office Visit [facility] MEDICINE [address] [place] [address] [facility] [address] [place] [address] 04/02/2025 11:00 AM EDT Office Visit [facility] [address] [place] [address] documented as of this encounter Visit Diagnoses Not on filedocumented in this encounter Additional Health Concerns Assessment Noted Time PHQ-9 Depression Total Score: 0 01/14/20 23 9:12 AM EDT documented as of this encounter Care Teams Display Artist Relationship Specialty Start Date End Date [place]erwoodCarmen martinez FNP [address] [place] [address] PCP - General Family Medicine 03/18/21 documented as of this encounter
== END 2025-01-31 10:52 | disposition home or self-care (01) ==
LOC: HO.BBR 10:51
PROVIDERS: PCP Registered Nurse; Visit Provider Urology
DX: Z13.89 Encounter for screening for other disorder (principal)

== ENCOUNTER 2025-02-12 10:51 | Outpatient (AMB) | payer OTHER, SELFPAY ==
--- NOTE | 2025-02-12 11:31 | MHC.OFFVIS ---
Intake Visit Reasons: 6m/labs Intake Note: Patient is present for: follow up Urology Medication:SILDENAFIL,TADALAFIL,TESOSTERONE,VITAMIN B12 Blood Thinner:ASPIRIN Quality Management Coordinator Required: No Accompanied by: Self / Same As Patient Allergies avocado (AVOCADO) Allergy (Severe, Verified 02/12/25 11:32) HIVES/SOB lisinopril Allergy (Severe, Verified 02/12/25 11:32) Unknown passion fruit (PASSION FRUIT) Allergy (Severe, Verified 02/12/25 11:32) HIVES/SOB sacubitril (Entresto) Allergy (Severe, Verified 02/12/25 11:32) Unknown valsartan (Entresto) Allergy (Severe, Verified 02/12/25 11:32) Unknown soy (SOY) Allergy (Unknown, Verified 02/12/25 11:32) SWELLING acetaminophen (From Percocet) Adverse Reaction (Verified 02/12/25 11:32) Gastrointestinal Upset oxycodone (From Percocet) Adverse Reaction (Verified 02/12/25 11:32) Gastrointestinal Upset HPI Comments Details: Mr Lehman is a very pleasant male. He is a patient of Dr Mejia. He is seen for the following urologic conditions. - hypogonadism - erectile dysfunction Six-month follow-up Lab work remains in range Good response to daily tadalafil with on demand. Has lost some weight 02/11 487 0.4 49 Continue testosterone Prescription refilled Injection day Tuesday, lab work Tuesday, Has some cracking of skin around foreskin. Topical steroid provided. Erectile dysfunction related to diabetes Had been on demand Current medications include daily 10 mg tadalafil Hypogonadism:? He presents today for?further evaluation and followup of his hypogonadism - doing better with more energy since starting injections.? Initial symptoms include? erectile dysfunction ?Yes ? decreased libido ?Yes ? change in mood/depression ?Yes ? in muscle size/strength ?Yes ? increased fatigue/malaise ?Yes ? The onset of symptoms has been?gradual.? Associate conditions include? obstructive sleep apnea ?No ? CAD ?No ? diabetes ?Yes ? dyslipidemia ?Yes ? hypertension ?Yes ? He has been taking?antidepressants.? Laboratory results?baseline, testosterone Mar 2016 163 ?, followup Day of T injection 06/04 369 ?02/03 , PSA 0.2, , testosterone 404 - at 0.25 SQ 2x a week - will increase to 0.3 ?08/07 restart T at 0.25 ?12/05 T 275, 08/08 T 625, PSA 0.3, 02/05 T 377 PSA 0.28, 08/09 T 266, 02/07 T 484, PSA 0.3, 08/11 T 759 P 0.4 H 57.3, 02/08 T 231 h 53, 08/12 800 0.6 53, 09/10 330 Hct 52.5, 05/13 550 Hct 51 ? Current therapy includes?injectable exogenous testosterone.? Response to therapy has been?improved, energy/wellbeing.? Diagnosis based on history and laboratory results?combined testicular insufficiency.? Therapeutic plan?continue current medication.? [facility] Medical History HFrEF (heart failure with reduced ejection fraction) ICD (implantable cardioverter-defibrillator) in place Nonischemic cardiomyopathy HTN (hypertension) Diabetes mellitus CAD (coronary artery disease) Surgical History History of carpal tunnel surgery H/O colonoscopy History of cardiac cath (~2016) Family History Father No problems noted. Mother No problems noted. Social History Household Members: Spouse Alcohol intake: former Patient Tobacco Use Status: Former Tobacco user Second Hand Smoke Exposure: No Review of Systems Const Denies chills and Denies fever(s) Card Reports no additional complaints and Denies syncope Resp Denies cough GI Denies abdominal pain and Denies heartburn Reports as per HPI and Denies change in libido Neuro Denies syncope Psych Denies change in libido Endo Denies change in libido Physical Exam Const General: cooperative, healthy appearing, comfortable and no acute distress Orientation/consciousness: patient oriented x3 HEENT Face and sinus: Yes normal facial exam Mouth: moist mucous membranes Neck Neck: Yes normal visual inspection, Yes full ROM and Yes trachea midline Chest Chest palpation & inspection: normal inspection of the chest Resp Effort & Inspection: normal respiratory effort, able to speak in complete sentences and no respiratory distress GI Inspection: Yes normal to inspection Back/Spine/Pelvis Cervical Spine: normal cervical lordosis Thoracic/Lumbar Spine: thoracic and lumbar spine normal to inspection Skin General skin exam: no rashes or lesions noted Neuro General: patient oriented x3, gait normal, tone normal and moves all extremities Extrem General: Yes normal to inspection and Yes capillary refill normal Assessment & Plan Assessment & Plan (1) Erectile dysfunction associated with type 2 diabetes mellitus: Code(s): E11.69 - Type 2 diabetes mellitus with other specified complication; N52.1 - Erectile dysfunction due to diseases classified elsewhere Category: Medical (2) Hypogonadism in male: Code(s): E29.1 - Testicular hypofunction Category: Medical (3) Balanitis: Code(s): N48.1 - Balanitis Category: Medical Plan Repeat lab work six-month Orders: Orders Testosterone, Total 5 Months E29.1 - Testicular hypofunction Hematocrit 5 Months E29.1 - Testicular hypofunction Prostate Specific Antigen 5 Months E29.1 - Testicular hypofunction Medications: New betamethasone dipropionate 0.05% Thin coat 2 times per day 1 appl topical BID 15 grams 0RF E29.1 - Testicular hypofunction, Q55.69 - Other congenital malformation of penis Refilled testosterone cypionate 80 mg (0.4 mL) subcut QWEEK 2 mL 5RF 28 days E29.1 - Testicular hypofunction Patient Instructions: This note is constructed using voice recognition software. While every effort has been made to ensure accuracy chlorine cell tender errors may have been included. Imaging studies, laboratory and physical exam results were discussed and reviewed in detail. No major barriers to patient understanding were identified. An opportunity to ask questions regarding the treatment plan was provided. All questions were answered. The patient expressed understanding and agreement with the above treatment plan. The patient is aware they should contact our office by phone for worsening of their current condition or the appearance of new urologic symptoms. Compliance is encouraged with any medications and followup testing that is ordered. It is a privilege to participate in the urologic care of your patient. If you have any questions or concerns regarding treatment for the above conditions, or other urologic issues, please do not hesitate to contact me. The office telephone contact is [phone]. Sincerely, Dr Ac Marina MD, [facility] - Urology Compassionate Specialist Care for the Genitourinary System Coding Level of Care Code Est Pt Level 4 (24222) Diagnoses Erectile dysfunction associated with type 2 diabetes mellitus E11.69; N52.1 Hypogonadism in male E29.1 Balanitis N48.1
--- OUTSIDE RECORDS SUMMARY | 2025-02-12 11:43 | XMS_ITS | Encounter Summary ---
Author Organization [employer] Address [address] [facility] 7t [place] [address] Care Team Providers Care Catalog Specialist Name Role Phone Carmen Mejia [employer] Primary Care Provider [phone] Reason for Visit * Reason Onset Date Comments denture appt PA 11/02/2022 Encounter Details Date Type Department Care Team (Late st Contact Info) Description 11/02/2022 Telephone [facility] [address] [place] [address] Bal Aponte, DMD [address] [place] [address] denture appt PA Social History Tobacco Use [...] - 11/02/2022 11:09 AM EDT Rep from [facility] called in checking in [...] Care Team (Late st Contact Info) Description 02/25/2025 9:00 AM EDT Office Visit [facility] [address] [place] [address] Carmen Mejia FNP [address] [place] [address] 04/02/2025 11:00 AM EDT Office Visit [facility] [address] [place] [address] documented as of this encounter Visit Diagnoses Not on filedocumented in this encounter Additional Health Concerns Assessment Noted Time PHQ-9 Depression Total Score: 0 10/15/19 23 8:58 AM EDT documented as of this encounter Care Teams Catalog Specialist Relationship Specialty Start Date End Date Carmen Mejia FNP [address] [place] [address] PCP - General Family Medicine 03/18/21 documented as of this encounter
--- OUTSIDE RECORDS SUMMARY | 2025-02-12 11:43 | XMS_ITS | Encounter Summary ---
Author Organization [employer] Address [address] [place] [address] 7t [place] [address] Care Team Providers Care Cold Type Artist Name Role Phone [facility] Primary Care Provider [phone] Reason for Visit * Reason Comments Med Refill Encounter Details Date Type Department Care Team (Late st Contact Info) Description 11/18/2022 Refill [facility] [address] [place] [phone] [facility] [address] [place], [place] [phone] Primary insomnia; Type 2 diabetes mellitus with other specified complication, without long-term current use of insulin ([facility]) Social History Tobacco Use Types [...] Description 02/25/2025 9:00 AM EDT Office Visit [facility] [address] [place] [address] [facility] [address] [place], [place] [phone] 04/02/2025 11:00 AM EDT Office Visit [facility] [address] [place] [address] documented as of this encounter Visit Diagnoses Diagnosis Primary insomnia Persistent disorder of initiating or maintaining sleep Type 2 diabetes mellitus with other specified complication, without long-term current use of insulin ([facility]) documented in this encounter Additional Health Concerns Assessment Noted Time PHQ-9 Depression Total Score: 0 10/15/19 23 8:58 AM EDT documented as of this encounter Care Teams Cold Type Artist Relationship Specialty Start Date End Date Carmen Mejia FNP [address] [place] [address] PCP - General Family Medicine 03/18/21 documented as of this encounter
--- OUTSIDE RECORDS SUMMARY | 2025-02-12 11:43 | XMS_ITS | Encounter Summary ---
Author Organization [employer] Address [address] [facility] 7t [place] [address] Care Team Providers Care Spot Worker Name Role Phone Carmen Mejia [facility] Primary Care Provider [phone] Encounter Details Date Type Department Care Team (Late Contact Info) Description 03/07/2023 Orders Only [facility] MED [facility] PEDS [address] [place], [place] [phone] Shannon Sargent LPN Social History Tobacco Use [...] EDT Office Visit [facility] [address] [place] [address] [facility] [address] [place] [address] 04/02/2025 11:00 AM EDT Office Visit [facility] [address] [place] [address] documented as of this encounter Visit Diagnoses Not on filedocumented in this encounter Additional Health Concerns Assessment Noted Time PHQ-9 Depression Total Score: 0 01/14/20 23 9:12 AM EDT documented as of this encounter Care Teams Spot Worker Relationship Specialty Start Date End Date MiltonCarmen martinez FNP [address] [place] [address] PCP - General Family Medicine 03/18/21 documented as of this encounter
--- OUTSIDE RECORDS SUMMARY | 2025-02-12 11:43 | XMS_ITS | Encounter Summary ---
Author Organization [employer] Address [address] [facility] 7t [place] [address] Care Team Providers Care Migratory Game Bird Biologist Name Role Phone Carmen Mejia [facility] Primary Care Provider [phone] Reason for Visit * Reason Comments Med Refill Encounter Details Date Type Department Care Team (Late st Contact Info) Description 11/16/2022 Refill [facility] [address] [place] [address] Melani Haider FNP [address] [place], [place] [phone] Other chronic pain Social History Tobacco Use [...] Description 02/25/2025 9:00 AM EDT Office Visit [facility] [address] [place] [address] RobertoCarmen [facility] [address] [place] [address] 04/02/2025 11:00 AM EDT Office Visit [facility] [address] [place] [address] documented as of this encounter Visit Diagnoses Diagnosis Other chronic pain documented in this encounter Additional Health Concerns Assessment Noted Time PHQ-9 Depression Total Score: 0 10/15/19 23 8:58 AM EDT documented as of this encounter Care Teams Migratory Game Bird Biologist Relationship Specialty Start Date End Date Carmen Mejia FNP [address] [place] [address] PCP - General Family Medicine 03/18/21 documented as of this encounter
--- OUTSIDE RECORDS SUMMARY | 2025-02-12 11:43 | XMS_ITS | Encounter Summary ---
Author Organization [employer] Address [address] [facility] 7t [place] [address] Care Team Providers Care Mastercam Programmer Name Role Phone Roberto [facility] Primary Care Provider [phone] Reason for Visit * Reason Comments Med Refill Encounter Details Date Type Department Care Team (Late st Contact Info) Description 01/05/2025 Refill [facility] [address] [place], [place] [phone] [facility] [address] [place] [address] Diabetes mellitus type 2 with neurological manifestations [...] Description 02/25/2025 9:00 AM EDT Office Visit [facility] [address] [place] [address] Carmen Mejia FNP [address] [place] [address] 04/02/2025 11:00 AM EDT Office Visit [facility] [address] [place] [address] documented as of this encounter Visit Diagnoses Diagnosis 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) documented in this encounter Additional Health Concerns Assessment Noted Time PHQ-9 Depression Total Score: 0 11/06/19 25 8:57 AM EDT documented as of this encounter Care Teams Mastercam Programmer Relationship Specialty Start Date End Date Carmen Mejia FNP [address] [place] [address] PCP - General Family Medicine 03/18/21 documented as of this encounter
--- OUTSIDE RECORDS SUMMARY | 2025-02-12 11:43 | XMS_ITS | Encounter Summary ---
Author Organization [employer] Address [address] [facility] 7t [place] [address] Care Team Providers Care Church Worker Name Role Phone Carmen Mejia [facility] Primary Care Provider [phone] Encounter Details Date Type Department Care Team ([facility] Contact Info) Description 10/15/2022 Orders Only [facility] CH[facility] MED & PEDS [address] [place], [place] [phone] Ritika Mcgovern LPN Social History Tobacco Use [...] Description 02/25/2025 9:00 AM EDT Office Visit [facility] MEDICINE [address] [place] [address] Carmen Mejia [facility] [address] [place], [place] [phone] 04/02/2025 11:00 AM EDT Office Visit [address] [address] documented as of this encounter Visit Diagnoses Not on filedocumented in this encounter Additional Health Concerns Assessment Noted Time PHQ-9 Depression Total Score: 0 10/15/19 23 8:58 AM EDT documented as of this encounter Care Teams Church Worker Relationship Specialty Start Date End Date Carmen Mejia FNP [address] [place] [phone] PCP - General Family Medicine 03/18/21 documented as of this encounter
--- OUTSIDE RECORDS SUMMARY | 2025-02-12 11:43 | XMS_ITS | Encounter Summary ---
Author Organization [employer] Address [address] [facility] 7t [place] [address] Care Team Providers Care Leadership Development Manager Name Role Phone Carmen Mejia [facility] Primary Care Provider [phone] Reason for Visit * Reason Comments Med Refill Encounter Details Date Type Department Care Team (Late st Contact Info) Description 02/07/2025 Refill [facility] MEDICINE [address] [place], [place] [phone] [facility] [address] [place] [address] Moderate persistent asthma without complication; Diabetes mellitus type 2 with neurological manifestations [...] Description 02/25/2025 9:00 AM EDT Office Visit [facility] MEDICINE [address] [place] [phone] Carmen Mejia FNP [address] [place] [address] 04/02/2025 11:00 AM EDT Office Visit [address] [address] documented as of this encounter Visit Diagnoses Diagnosis Moderate persistent asthma without complication 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) documented in this encounter Additional Health Concerns Assessment Noted Time PHQ-9 Depression Total Score: 0 11/06/19 25 8:57 AM EDT documented as of this encounter Care Teams Leadership Development Manager Relationship Specialty Start Date End Date Carmen Mejia FNP [address] [place] [address] PCP - General Family Medicine 03/18/21 documented as of this encounter
--- OUTSIDE RECORDS SUMMARY | 2025-02-12 11:44 | XMS_ITS | Encounter Summary ---
Author Organization [employer] Address [address] [facility] 7t [place] [address] Care Team Providers Care Beer Still Runner Compounder Name Role Phone Carmen Mejia [facility] Primary Care Provider [phone] Encounter Details Date Type Department Care Team (Late st Contact Info) Description 05/05/2023 Abstract [facility] MEDICINE [address] [place] [address] Dia Gibson Social History Tobacco Use Types [...] Description 02/25/2025 9:00 AM EDT Office Visit [facility] MEDICINE [address] [place] [address] Carmne Mejia [address] [address] 04/02/2025 11:00 AM EDT Office Visit [address] [address] documented as of this encounter Visit Diagnoses Not on filedocumented in this encounter Additional Health Concerns Assessment Noted Time PHQ-9 Depression Total Score: 24 023 9:04 AM EDT documented as of this encounter Care Teams Beer Still Runner Compounder Relationship Specialty Start Date End Date Carmen Mejia FNP [address] [place] [address] PCP - General Family Medicine 03/18/21 documented as of this encounter
--- OUTSIDE RECORDS SUMMARY | 2025-02-12 11:44 | XMS_ITS | Encounter Summary ---
Author Organization [employer] Address [address] [facility] 7t [place] [address] Care Team Providers Care Catering Sous Chef Name Role Phone Carmen Mejia [employer] Primary Care Provider [phone] Encounter Details Date Type Department Care Team (Late st Contact Info) Description 07/08/2022 Orders Only [facility] MEDICINE [address] [place] [address] Shannon Sargent LPN Social History Tobacco Use [...] Description 02/25/2025 9:00 AM EDT Office Visit [address] [address] Carmen Mejia FNP [address] [place] [address] 04/02/2025 11:00 AM EDT Office Visit [address] [address] documented as of this encounter Visit Diagnoses Not on filedocumented in this encounter Care Teams Catering Sous Chef Relationship Specialty Start Date End Date Carmen Mejia FNP [address] [place] [phone] PCP - General Family Medicine 03/18/21 documented as of this encounter
--- OUTSIDE RECORDS SUMMARY | 2025-02-12 11:44 | XMS_ITS | Encounter Summary ---
Author Organization [email or web address] Address [address] [facility] 7t [place] [address] Care Team Providers Care All Source Collection Manager Name Role Phone Carmen Mejia [facility] Primary Care Provider [phone] Encounter Details Date Type Department Care Team (Late st Contact Info) Description 06/11/2022 Orders Only [facility] CHC MED & PEDS [address] [place] [address] Ritika Mcgovern LPN Social History Tobacco Use [...] Description 02/25/2025 9:00 AM EDT Office Visit [facility] MEDICINE [address] [place] [address] Carmen Mejia [facility] [address] [place] [address] 04/02/2025 11:00 AM EDT Office Visit [facility] MEDICINE [address] [place] [address] documented as of this encounter Visit Diagnoses Not on filedocumented in this encounter Care Teams All Source Collection Manager Relationship Specialty Start Date End Date Carmen Mejia FNP [address] [place] [address] PCP - General Family Medicine 03/18/21 documented as of this encounter
--- OUTSIDE RECORDS SUMMARY | 2025-02-12 11:44 | XMS_ITS | Encounter Summary ---
Author Organization [employer] Address [address] [facility] 7t [place] [address] Care Team Providers Care Hot Car Charger Name Role Phone Roberto [facility] Primary Care Provider [phone] Reason for Visit * Reason Comments Med Refill Encounter Details Date Type Department Care Team (Late st Contact Info) Description 01/03/2024 Refill [facility] CHC MED & PEDS [address] [place], [place] [phone] [place] [address] [place] [address] Nontraumatic incomplete tear of rotator cuff, unspecified [...] Description 02/25/2025 9:00 AM EDT Office Visit [address] [address] Carmen Mejia FNP [address] [place] [address] 04/02/2025 11:00 AM EDT Office Visit [address] [address] documented as of this encounter Visit Diagnoses Diagnosis Nontraumatic incomplete tear of rotator cuff, unspecified laterality documented in this encounter Additional Health Concerns Assessment Noted Time PHQ-9 Depression Total Score: 0 11/09/19 24 9:34 AM EDT documented as of this encounter Care Teams Hot Car Charger Relationship Specialty Start Date End Date Carmen Mejia FNP [address] [place] [address] PCP - General Family Medicine 03/18/21 documented as of this encounter
--- OUTSIDE RECORDS SUMMARY | 2025-02-12 11:44 | XMS_ITS | Clinical Summary ---
Author Organization [employer] - is now [employer] Address [address] [facility] [place] [address] Care Team Providers Care Tetryl Wringer Operator Name Role Phone [facility] Primary Care Provider [phone] Allergies Active Allergy Reactions Criticality Noted Date Comments Jamie Inhibitors High 11/25/2021 Other reaction(s): Unknown Avocado High 11/18/2022 Other reaction(s): HIVES/SOB Passion Fruit Flavoring Agent (Non-Screening) High 11/18/2022 Other reaction(s): HIVES/SOB Penicillin G 11/25/2021 Other reaction(s): Unknown Sacubitril High 11/18/2022 Other reaction(s): Unknown Soy Allergy (Obsolete) 11/18/2022 Other reaction(s): SWELLING Valsartan High 11/18/2022 Other reaction(s): Unknown Medications * This document contains information received from the source organization and may not represent a complete record from that organization. GaviLAX 17 GM/SCOOP powderIndications :Drug-induced constipation TAKE [...] 1 TABLET BY MOUTH EVERY MORNING (CALL [phone] FOR APPOINTMENT (Dr. Pillai)) 023 Active carvedilol (Coreg) 25 MG tablet TAKE 1 TABLET BY MOUTH TWICE DAILY IN THE MORNING AND IN THE EVENING WITH FOOD 023 Active atorvastatin (Lipitor) 40 MG tablet Take 40 mg by mouth at bedtime. 023 Active Aspirin Low Dose 81 MG EC tablet TAKE 1 TABLET BY MOUTH EVERY MORNING (CALL [phone] FOR APPOINTMENT (Dr. Pillai )) 023 Active albuterol (2.5 MG/3ML) 0.083% nebulizer solutionIndicatio ns:Moderate persistent asthma without complication Take 3 mL (2.5 mg) by nebulization every 4 (four) hours if needed for wheezing. 75 mL 3 023 Active albuterol (Ventolin HFA) 108 (90 Base) MCG/ACT inhalerIndication s:Moderate persistent asthma without complication INHALE 2 PUFFS BY MOUTH EVERY 4 TO 6 HOURS NEEDED 18 g 2 025 Active glucose blood (FREESTYLE LITE) test stripIndications: 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) TEST BLOOD SUGAR 3 TIMES DAILY 100 strip 11 025 Active TRUEplus Lancets 33G miscIndications:D iabetes mellitus type 2 with neurological manifestations (CMS/HCC) TEST BLOOD SUGAR 3 TIMES DAILY 100 each 11 025 Active metFORMIN (Glucophage) 1000 MG tabletIndications :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) TAKE 1 TABLET BY MOUTH TWICE DAILY IN THE MORNING AND IN THE EVENING WITH MEALS 180 tablet 1 025 Active Alcohol Swabs (Alcohol Prep) padsIndications:D iabetes mellitus type 2 with neurological manifestations (CMS/HCC) Use one pad each to prep skin prior to injection as directed 100 each 11 025 Active Lancets 33G miscIndications:D iabetes mellitus type 2 with neurological manifestations (CMS/HCC) Use as directed to check blood sugar four times daily 100 each 3 025 Active Blood Glucose Monitoring Suppl (GNP Easy Touch Glucose Meter) deviceIndications :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) Use as directed to check blood sugar four times daily 1 each 025 Active glucose blood (FREESTYLE LITE) test stripIndications: 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) TEST BLOOD SUGAR THREE TIMES DAILY 100 each 11 025 Active Dulaglutide (Trulicity) 4.5 MG/0.5ML solution auto-injectorIndi cations:Diabetes mellitus type 2 with neurological manifestations ([facility]) Inject 4.5 mg under the skin 1 (one) time per week. 2 mL 3 025 Active Tirzepatide (Mounjaro) 5 MG/0.5ML solution auto-injectorIndi cations:Diabetes mellitus type 2 with neurological manifestations ([facility]) Inject 5 mg under the skin 1 (one) time per week. 2 mL 1 025 2025 Active budesonide-formot jaime (Symbicort) 160-4.5 MCG/ACT inhalerIndication s:Chronic obstructive pulmonary disease, unspecified COPD type ([facility]) INHALE 2 PUFFS BY MOUTH TWICE DAILY IN THE MORNING AND IN THE EVENING RINSE MOUTH AFTER USING. 10.2 g 3 025 Active zolpidem (Ambien) 5 MG tabletIndications :Primary insomnia TAKE 1 TABLET BY MOUTH AT BEDTIME 30 tablet 1 025 Active omeprazole (PriLOSEC) [address] capsuleIndication s:Dysphagia, unspecified type TAKE 1 CAPSULE BY MOUTH TWICE DAILY 60 capsule 3 025 Active QUEtiapine (SEROquel) 50 MG tabletIndications :Type 2 diabetes mellitus with other specified complication, without long-term current use of insulin ([facility]) TAKE 2 TABLETS BY MOUTH EVERY DAY AT BEDTIME 60 tablet 3 025 Active Jardiance 25 MGIndications:Typ e 2 diabetes mellitus with other specified complication, without long-term current use of insulin ([facility]) TAKE 1 TABLET BY MOUTH EVERY MORNING 30 tablet 3 025 Active citalopram (CeleXA) 20 MG tabletIndications :Mood disorder ([facility]) TAKE 1 TABLET BY MOUTH EVERY MORNING 30 tablet 3 025 Active citalopram (CeleXA) 10 MG tabletIndications :Mood disorder ([facility]) TAKE 1 TABLET BY MOUTH EVERY MORNING 30 tablet 3 025 Active acetaminophen-cod eine (Tylenol w/ Codeine #4) 300-60 MG tabletIndications :Nontraumatic incomplete tear of rotator cuff, unspecified laterality Take 1 tablet by mouth every 8 (eight) hours if needed for moderate pain for up to 28 days. Do not start before January 25, 2025. 84 tablet 025 2024 Active cetirizine (ZyrTEC) 10 MG tabletIndications :Moderate persistent asthma without complication TAKE 1 TABLET BY MOUTH EVERY MORNING 30 tablet 5 Active Multiple Vitamin (Multivitamin) tabletIndications :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) TAKE 1 TABLET BY MOUTH EVERY MORNING 30 tablet 5 025 Active cyanocobalamin (Vitamin B-12) 1000 MCG tablet TAKE 1 TABLET BY MOUTH EVERY MORNING 30 tablet 5 Active Multiple Vitamin (multivitamin) tabletIndications :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) Take 1 tablet by mouth Once per day. 30 tablet 11 024 2024 Discontinued cetirizine (ZyrTEC) 10 MG tabletIndications :Moderate persistent asthma without complication TAKE 1 TABLET BY MOUTH EVERY MORNING 30 tablet 5 025 2024 Discontinued cyanocobalamin (Vitamin B-12) 1000 MCG tablet TAKE 1 TABLET BY MOUTH EVERY MORNING 30 tablet 5 025 2024 Discontinued acetaminophen-cod eine (Tylenol w/ Codeine #4) 300-60 MG tabletIndications :Nontraumatic incomplete tear of rotator cuff, unspecified laterality Take 1 tablet by mouth every 8 (eight) hours if needed for moderate pain for up to 28 days. Do not start before December 28, 2024. 84 tablet 025 2024 Discontinued Active Problems Problem Noted Date Diagnosed Date Long-term current use of opiate analgesic 2023 Overview (09/25/2024): Medication: Tylenol w/ Codeine #4 (300-60mg) Q8H PRN Indication: Rotator cuff tear (not ideal surgical candidate) Tier III (Q6 month visits) Last RADIOLOGY RESIDENT Agreement: 09/25/24 Assessment & Plan (11/29/2024 3:16 PM EDT): Timeline: - 11/17/23: RADIOLOGY RESIDENT Agreement, Utox/pill count as expected - 12/13/23: NCNS to Group visit - 12/27/23: Initial Group Visit, Utox/pill count as expected - 01/31/24: Group visit, Utox/pill count as expected - 03/13/24: Group visit, Utox/pill count as expected - 05/15/24: Group visit, Utox/pill count as expected - 07/17/24: Group visit, Utox/pill count as expected - 09/25/24: Group Visit, utox/pill count as expected - 11/27/24: Group visit, utox/pill count as expected Assessment & Plan (09/25/2024 2:43 PM EDT): Timeline: - 11/17/23: RADIOLOGY RESIDENT Agreement, Utox/pill count as expected - 12/13/23: [...] (07/24/2024 3:07 PM EST): Timeline: - 11/17/23: RADIOLOGY RESIDENT Agreement, Utox/pill count as expected - 12/13/23: NCNS to Group visit - 12/27/23: Initial Group Visit, Utox/pill count as expected - 01/31/24: Group visit, Utox/pill count as expected - 03/13/24: Group visit, Utox/pill count as expected - 05/15/24: Group visit, Utox/pill count as expected - 07/17/24: Group visit, Utox/pill count as expected Assessment & Plan (05/15/2024 6:31 PM EST): Timeline: - 11/17/23: RADIOLOGY RESIDENT Agreement, Utox/pill count as expected - 12/13/23: [...] 10/16/2023 Microalbuminuria 07/28/2023 Cardiomyopathy 07/20/2022 Overview (07/20/2022): Followed by cardiology at [facility]. Hx of reduced ejection fraction that has responded well to neurohormonal modulating therapy and significant weight loss and lifestyle changes. Echo from 03/2021 with EF of 55%-60%. ICD in place for primary prevention with remote monitoring q 3 months Partial thickness rotator cuff tear 07/20/2022 Overview (07/20/2022): Chronic L shoulder pain and reduced mobility r/t incomplete tear of rotator cuff. Previously evaluated by several orthopedic surgeons who have all declined proceeding with surgery d/t patient comorbidities. Currently managing pain with Tylenol #4. Compliant with RADIOLOGY RESIDENT agreement Followed by [facility] pain mnmt. Assessment & Plan (11/29/2024 3:16 PM EDT): -Good engagement and participation with Group Medical Visit model -Encouraged multifactorial approach to pain control including pharm and non- pharm modalities -UTOX and Pill count as expected Assessment & Plan (09/25/2024 2:43 PM EDT): [...] Healthcare maintenance 07/20/2022 Overview (04/28/2023): CRC: 2016 [facility] 10 year f/u PSA: 07/2022 0.57 HIV: Negative 2019 Hepatitis: Negative HCV 2019 Declines covid vaccine Assessment & Plan (01/13/2023 10:32 AM EDT): - Will request [facility] colonoscopy records Carpal tunnel syndrome on both sides 07/20/2022 Overview (07/20/2022): EMG 12/2021-bilateral moderate-severe ulnar and median neuropathy and bilateral anahy guber anastamosis Seen by [facility] Dr. Nixon 04/2022; surgical candidate would require cardiac clearance and improved A1c Mood disorder 07/20/2022 Overview (07/20/2022): Seroquel 50mg XR Celexa 30mg Nightly ambien Declines therapy referral Assessment & Plan (04/28/2023 1:35 PM EST): PHQ-9 elevated (24). Denies SI or thoughts of self harm Declines medication changes or referral to N Contact HC if sx worsen or experiencing thoughts of SI or self harm. Pt has N crisis contact information Coronary arteriosclerosis 08/05/2020 Implantable cardioverter-defibrillator (ICD) in situ 09/30/2017 Essential hypertension 07/14/2017 Overview (10/15/2022): Followed by [facility] cardiology Hydralazine 50mg b.i.d Carvediol 25mg b.i.d Furosemide 40mg daily Assessment & Plan (04/28/2023 1:23 PM EST): Well controlled Continue current regimen Follow up as scheduled with cardiology Assessment & Plan (01/13/2023 10:31 AM EDT): Continue current regimen Assessment & Plan (10/15/2022 3:42 PM EDT): Continue current regimen Follow with cardiology as scheduled Moderate nonproliferative diabetic retinopathy 0 07/14/2017 Asthma 12/04/2015 Overview (01/13/2023): Moderate persistent Symbicort b.i.d Albuterol PRN Assessment & Plan (04/28/2023 1:36 PM EST): Well controlled Continue current regimen Assessment & Plan (01/13/2023 10:30 AM EDT): Will order nebulizer Start daily cetirizine Contact HC if sx worsen or do [...] Component Value Date HGBA1C 8.0 (A) 04/18/2023 Increase in A1c Patient declines trulicity increase - prefers to trial diet changes first Continue current regimen Assessment & Plan (01/13/2023 10:31 AM EDT): Lab Results Component Value Date HGBA1C 6.2 (A) 01/13/2023 Well controlled No episodes of low blood sugar Continue current regimen Assessment & Plan (10/15/2022 3:31 PM EDT): Lab Results Component Value Date HGBA1C 7.4 (A) 10/14/2022 Continue current regimen Will send lab results to ortho Assessment & Plan (07/20/2022 6:05 PM EST): START trulicity .75mg subcutaneous, reviewed administration, risks, side effects Erectile dysfunction 12/04/2015 Overview (07/20/2022): Followed by [facility] urology and receives SQ testosterone Hypogonadism male 12/04/2015 Mixed hyperlipidemia 12/04/2015 Overview (10/15/2022): Atorvastatin 40mg daily Assessment & Plan (10/15/2022 3:42 PM EDT): Continue current regimen [place] (myocardial infarction) 12/04/2015 Encounters * This document contains information received from the source organization and may not represent a complete record from that organization. Date Type Department Care Team Description 02/07/2025 Refill [facility] [address] [place] [address] [place], Carmen, [employer] Moderate persistent asthma without complication; Diabetes mellitus type 2 with neurological manifestations ([facility]) 01/30/2025 Orders Only GENERIC EXTERNAL DATA DEPARTMENT Provider, Generic External Data 01/29/2025 10:00 AM EDT Clinical Support [facility] [address] [place] [address] Ligia Titus RN Other chronic pain 01/29/2025 Travel 01/22/[address] [facility] [address] [place] [address] RobertoCarmen martinez, [employer]IC Nontraumatic incomplete tear of rotator cuff, unspecified laterality 01/10/2025 Refill [facility] [address] [place] [address] Carmen Mejia, [employer]IC Dysphagia, unspecified type; Type 2 diabetes mellitus with other specified complication, without long-term current use of insulin ([facility]); Mood disorder ([facility]) 01/05/2025 Refill [facility] [address] [place] [address] Carmen Mejia, INDUSTRI[employer] RE[employer]IGERATION MECH[employer]IC Diabetes mellitus type 2 with neurological manifestations ([facility]) 12/26/[address] [facility] [address] [place] [address] Carmen Mejia, INDUSTRI[employer] RE[employer]IGERATION MECH[employer]IC Nontraumatic incomplete tear of rotator cuff, unspecified laterality 12/13/2024 Telephone [facility] [address] [place] [phone] Carmen Mejia, IND[employer]ERATION MECH[employer]IC sept recall 12/13/[address] [facility] [address] [place] [address] [place], [facility] Primary insomnia 12/13/2024 Refill [facility] [address] [place] [phone] Kolby Briceño MD Chronic obstructive pulmonary disease, unspecified COPD type ([facility]); Primary insomnia 12/07/2024 Orders Only GENERIC EXTERNAL DATA DEPARTMENT Provider, Generic External Data 11/27/2024 11:00 AM EDT Office Visit [facility] [address] [place] [phone] Melani Haider, IND[employer]CH[employer]IC Traumatic incomplete tear of left rotator cuff, subsequent encounter (Primary Dx); Long-term current use of opiate analgesic 11/27/2024 Travel 11/26/[address] [facility] [address] [place] [address] Ritika Boles DO Nontraumatic incomplete tear of rotator cuff, unspecified laterality 11/26/2024 Orders Only GENERIC EXTERNAL DATA DEPARTMENT Provider, Generic External Data from Last 3 Months Immunizations Immunization Administration [...] 76 11/05/2024 8:56 AM EDT Temperature 36.3 C (97.4 F) 11/05/2024 8:56 AM EDT Respiratory Rate 20 11/05/2024 8:56 AM EDT [...] Description 02/25/2025 9:00 AM EDT Office Visit [facility] [address] [place] [phone] [address] 04/02/2025 11:00 AM EDT Office Visit [address] [address] Health Maintenance Due Date Last Done Comments CT Colonography 1965 Dental Oral Exam 1965 Dental Prophylaxis 1965 Dental X-Ray: Bitewings 1965 Dental X-Ray: Full Mouth 1965 FIT DNA/Cologuard 1965 FIT 1965 FOBT 1965 Sigmoidoscopy 1965 Alcohol/Substance Use Screening 1976 RSV Patients and Patients Aged 60 years or older (1 - Risk 60-74 years 1-dose series) 2024 Diabetes: Hemoglobin A1C 02/05/2025 025, 08/03/2024, 02/10/2024, Additional history exists Influenza Vaccine (#1) 2025 , 03/21/2023, 03/15/2022, Additional history exists Colonoscopy 06/20/2025 06/20/2015 Colorectal Cancer Screening 06/20/2025 Diabetes: Foot Exam 10/18/2025 10/18/2024, 07/20/2023, 07/20/2023, Additional history exists Eye Exam 10/22/2025 10/22/2024, 10/18, 11/01/2022, Additional history exists SDOH Screening 10/29/2025 10/29/2024 Depression Screening 11/05/2025 11/05/2024, 11/06/19 25 Disability Screening 11/05/2025 11/05/2024 Tobacco Screening 11/05/2025 11/05/2024 Diabetes: Urine Protein Screening 11/26/2025 11/26/2024, 08/31/2023, 07/20/2023, Additional history exists Lipid Panel 11/26/2025 11/26/2024, 06/22, 06/01/2022, Additional history exists DTaP/Tdap/Td Vaccines (3 - Td or Tdap) 11/24/2028 11/24/2018, 07/30/2016 HIV Screening Completed 02/27/2020 Hepatitis C Screening Completed 02/27/2020 Zoster Vaccines Completed 08/19/2020, 06/17/2020 Pneumococcal Vaccine: 50+ Years Completed 07/20/2022, 02/17/2016 COVID-19 Vaccine Completed 06/01/2024, , 04/15/2022, Additional history exists HIB Vaccines Aged Out [...] Procedure Name Priority Date/Time Associated Diagnosis Comments TESTOSTERONE, TOTAL, MALES (ADULT), IA Routine 01/30/2025 10:22 AM EDT PSA, TOTAL Routine 01/30/2025 10:22 AM EDT CBC Routine 01/30/2025 10:22 AM EDT POCT KINA-14 URINE DRUG SCREEN Routine 01/29/2025 11:31 AM EDT Other chronic pain CTA HEAD NECK W AND WO CONTRAST Routine 12/07/2024 3:28 PM EDT URINALYSIS, COMPLETE, WITH REFLEX TO CULTURE Routine 12/07/2024 1:[address] HEAD WO CONTRAST Routine 12/07/2024 1 2:21 PM EDT POCT KINA-14 URINE DRUG SCREEN Routine 11/27/2024 11:29 AM EDT Long-term current use of opiate analgesic Traumatic incomplete tear of left rotator cuff, subsequent encounter TESTOSTERONE, TOTAL, MALES (ADULT), IA Routine 11/26/2024 10:47 AM EDT PSA, TOTAL Routine 11/26/2024 10:47 AM EDT CBC Routine 11/26/2024 10:47 AM EDT ALBUMIN, RANDOM URINE W/CREATININE Routine 11/26/2024 10:47 AM EDT 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) LIPID PANEL, STANDARD Routine 11/26/2024 10:47 AM EDT 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) B TYPE NATRIURETIC PEPTIDE (BNP) Routine 11/26/2024 10:47 AM EDT Cardiomyopathy, unspecified type (CMS/HCC) COMPREHENSIVE METABOLIC PANEL Routine 11/26/2024 10:47 AM EDT 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) POCT GLYCATED HEMOGLOBIN, TOTAL Routine 11/05/2024 9:00 AM EDT 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) ZZZ HISTORICAL HEPATITIS C AB W/REFL TO HCV RNA, QN, PCR Routine 02/27/2020 9:28 AM EDT HIV 1/2 ANTIGEN/ANTIBODY, FOURTH GENERATION W/RFL Routine 02/27/2020 9:28 AM EDT HM COLONOSCOPY Routine 06/20/2015 from Last 3 Months or Most Recently Relevant to Health Maintenance Results * (ABNORMAL) CBC (01/30/2025 10:22 AM EDT) Only the most recent of2 resultswithin the time period is included. White Blood Count 10.9(H) 4.8 - 10.8 X10*3/uL [facility] Red Blood Count 6.61(H) 4.60 - 5.80 X10*6/uL [facility] Hemoglobin 14.9 14.0 - 18.0 g/dl [facility] Hematocrit 49.7 42.0 - 52.0 % [facility] Mean Corpuscular Volume 75.2(L) 80.0 - 98.0 fL [facility] Mean Corpuscular Hemoglobin 22.5(L) 27.0 - 33.0 pg [facility] Mean Corpuscular HGB Conc 30.0(L) 31.0 - 36.0 g/dl [facility] Red Cell Distribution Width 20.6(H) 11.0 - 16.0 % [facility] Platelet Count 278 160 - 400 X10*3/uL [facility] Mean Platelet Volume 10.9 9.4 - 12.4 fL [facility] NRBC Pct Auto 0.0 0.0 - 0.2 /100WBC [facility] NRBC Abs Auto 0.000 0.0 - 0.012 X10*3/uL [facility] 01/30/2025 10:2 2 AM EDT 01/30/2025 10:22 AM EDT us Generic External Data Provider LAB BLOOD ORDERAB LES Final Result [facility] [address] [place] [phone] * Testosterone, Total, males (Adult), IA (01/30/2025 10:22 AM EDT) Only the most recent of2 resultswithin the time period is included. Testosterone, Total 487 250 - 1100 ng/dL [facility] Comment:For additional infor matjenaro, please refer [email or web address](This link is being provided for informational/educational purposes only.)This test was developed and its analytical performancecharacteristics have been determined by [facility] [place], [place]. It hasnot been cleared or approved by the U.S. Food and DrugAdministration. This assay has been validated pursuantto the CLIA regulations and is used for clinicalpurposes.THIS TEST WAS PERFORMED AT:[id number] [place] [address]AMSHPJKMEGHAN MARION MD,PHD 01/30/2025 10:2 2 AM EDT 01/30/2025 10:22 AM EDT Generic External Data Provider LAB BLOOD ORDERAB LES Final Result Performing Organization Address [facility] Co de Phone Number [facility] [address] [place] [phone] * PSA,Total (01/30/2025 10:22 AM EDT) Only the most recent of2 resultswithin the time period is included. Prostate Specific Antigen 0.37 <0.05 - 4.0 ng/mL [facility] Comment:PSA methodology: Dominga Larson i ChemiluminescentMicroparticle Immunoassay (CMIA) 01/30/2025 10:2 2 AM EDT 01/30/2025 10:22 AM EDT Generic External Data Provider LAB BLOOD ORDERAB LES Final Result Performing Organization Address [facility] Co de Phone Number [facility] [address] [place] [phone] * (ABNORMAL) POCT KINA-14 Urine Drug Screen (01/29/2025 11:31 AM EDT) Only the most recent of2 resultswithin the time period is included. THC Negative Negative Cocaine Screen, Urine Negative Negative Opiate Screen, Urine Positive(A) Negative Methamphetamine Screen Urine Negative Negative Amphetamine Screen, Urine Negative Negative Benzodiazepines Screen, Urine Negative Negative Barbiturate Screen, Urine Negative Negative Methadone Screen, Urine Negative Negative Buprenophine Screen, Urine Negative Negative TCA, Urine Negative Negative MDMA Urine Negative Negative ng/mL Oxycodone Screen, Urine Negative Negative Phencyclidine (PCP), Urine Negative Negative Propoxyphene, Urine Negative Negative Fentanyl, Urine Negative Negative Urine Urine specimen obtained by clean catch procedure / Unknown 01/29/2025 11:31 AM EDT Narrative Ligia Titus RN - 01/29/2025 11:31 AM EDT .UTOX cup Lot#[id number] Exp. 03/26/26 Internal Pass Control Melani Haider [employer]ER[employer] MECH[employer]IC POINT OF CARE TEST ENTER/EDIT ORDERABLES Final Result * CTA Head Neck w/ and w/o Contrast (12/07/2024 3:28 PM EDT) Anatomical Region Laterality Modality Head, Neck Computed Tomogra phy 12/07/2024 3:28 PM EDT Narrative 12/07/2024 4:23 PM EDT [place] [address] CT Scan Report Signed Patient: Andry Lehman MR#: [id number] : 1965 Acct:[id number] Age/Sex: 59 / M ADM Date: 12/07/24 Loc: .ED Attending Dr: Ordering Physician: Hernan Beverly MD Date of Service: 12/07/24 Procedure(s): CT angio head neck Accession Number(s): [id number] cc: Hernan Beverly MD; [facility] [employer]CH[employer]IC Report Number: [id number]: Total DLP = 723.00 mGy-cm EXAMINATION: CT ANGIOGRAM HEAD NECK CLINICAL INFORMATION: Right leg ataxia, difficulty walking COMPARISON: CT head from 2 hours earlier TECHNIQUE: The degree of stenosis determined by NASCET criteria. This CT examination was performed using dose optimization techniques as appropriate, variously including the following: *Automated exposure control *Adjustment of mA and/or kV according to patient size (this includes techniques or standardized protocols for targeted exams where dose is matched to indication/reason for exam; i.e. extremities or head) *Use of iterative reconstruction technique TECHNIQUE: Noncontrast axial imaging of the head was performed. This was followed by test bolus sequences and head and neck intravenous bolus administration of 70mL of Omnipaque 350. Helical imaging was performed in the axial plane from the aortic arch to the skull vertex. The data was processed at the nuclear technologist's workstation for generation of MIP sequences. Angled MIPs and volume rendered reformatted images were also generated at an offline 3D workstation. Stenoses are assessed in accordance with NASCET criteria unless otherwise indicated. This CT examination was performed using dose optimization techniques as appropriate, variously including the following: *Automated exposure control *Adjustment of mA and/or kV according to patient size (this includes techniques or standardized protocols for targeted exams where dose is matched to indication/reason for exam; i.e. extremities or head) *Use of iterative reconstruction technique DLP: 723 mGy*cm FINDINGS: NECK CTA: -AORTIC ARCH: Normal in caliber. Mild atheromatous calcification. Three-vessel branching pattern. -GREAT VESSEL ORIGINS: Widely patent. No stenosis. -RIGHT COMMON CAROTID ARTERY: Normal in course and caliber to the level of the bifurcation. -CERVICAL RIGHT INTERNAL CAROTID ARTERY: Small calcified plaque is present in the carotid bulb. Normal opacification without focal stenosis or occlusion. -LEFT COMMON CAROTID ARTERY: Normal in course and caliber to the level of the bifurcation. -CERVICAL LEFT INTERNAL CAROTID ARTERY: Patent without hemodynamically significant stenosis. -CERVICAL RIGHT VERTEBRAL ARTERY: Codominant. Normal in course and caliber into the skull base. -CERVICAL LEFT VERTEBRAL ARTERY: Origin is obscured by motion artifact. Codominant. Normal in course and caliber into the skull base. OTHER, SOFT TISSUES: -No lymphadenopathy or mass. No abnormal fluid collection or soft tissue swelling. -Normal thyroid. -Imaged superior mediastinal structures normal. -Imaged lung apices clear. CTA OF THE BRAIN: -INTRACRANIAL INTERNAL CAROTID ARTERIES: No focal stenosis or occlusion. Small focal calcified plaques are present in the distal internal carotid arteries. -RIGHT ANTERIOR CEREBRAL ARTERY: Normal A1 segment.. Normal arborization of the distal segments. -LEFT ANTERIOR CEREBRAL ARTERY: Normal A1 segment.. Normal arborization of the distal segments. -ANTERIOR COMMUNICATING ARTERY: Normal. -RIGHT MIDDLE CEREBRAL ARTERY: Normal M1 segment of the MCA without focal stenosis or occlusion. Normal bifurcation. Normal arborization of the distal segments. -LEFT MIDDLE CEREBRAL ARTERY: Normal M1 segment of the MCA without focal stenosis or occlusion. Normal bifurcation. Normal arborization of the distal segments. -RIGHT VERTEBRAL ARTERY V4: Normal in course and caliber. Focal calcified plaque is present without hemodynamically significant stenosis. Normal PICA branch. -LEFT VERTEBRAL ARTERY V4: Normal in course and caliber. Focal calcified plaque at the level of the clivus without hemodynamically significant stenosis (<50%). Normal PICA branch. -BASILAR ARTERY: Normal without focal stenosis or occlusion. Normal appearance of the proximal superior cerebellar arteries. Normal basilar tip. -RIGHT POSTERIOR CEREBRAL ARTERY: Patent P1 segment. Normal opacification of the distal FUR REMODELER segments. -LEFT POSTERIOR CEREBRAL ARTERY: origin. Normal opacification of the distal FUR REMODELER segments. -POSTERIOR COMMUNICATING ARTERIES: The right is small but present. Left is patent.. Normal opacification of the superior sagittal, straight, transverse, and sigmoid sinuses. No venous thrombosis. No space-occupying hemorrhage or definite evolving infarct. CT/CT angio head neck IMPRESSION: CTA NECK: No hemodynamically significant stenosis CTA HEAD: No hemodynamically significant stenosis. Focal less than 50% stenosis of the left vertebral artery at the level of the clivus. Dr. Beverly notified Electronically signed by: Aris Delaney MD 12/07/2024 04:20 PM EDT Dictated By: Aris Dealney MD Signed By: <Electronically signed by Aris Delaney MD in OV> 12/07/24 1620 DD/ 1528 TD/TT: 12/07/24 1548 Planning Rn: Procedure Note Donotuseinterpreter, Image - 12/07/[address] [place] [address] [address] Scan Report Signed Patient: Armani Lehman#: [id number] : 1965Acct:[id number] Age/Sex: 59 / MADM Date: 12/07/24 Loc: HO.ED Attending Dr: Ordering Physician: Hernan Beverly MD Date of Service: 12/07/24 Procedure(s): CT angio head neck Accession Number(s): [id number] cc: Hernan Beverly MD; [facility] Report Number: [id number]: Total DLP = 723.00 mGy-cm EXAMINATION: CT ANGIOGRAM HEAD NECK CLINICAL INFORMATION: Right leg ataxia, difficulty walking COMPARISON: CT head from 2 hours earlier TECHNIQUE: The degree of stenosis determined by NASCET criteria. This CT examination was performed using dose optimization techniques as appropriate, variously including the following: *Automated exposure control *Adjustment of mA and/or kV according to patient size (this includes techniques or standardized protocols for targeted exams where dose is matched to indication/reason for exam; i.e. extremities or head) *Use of iterative reconstruction technique TECHNIQUE: Noncontrast axial imaging of the head was performed. This was followed by test bolus sequences and head and neck intravenous bolus administration of 70mL of Omnipaque 350. Helical imaging was performed in the axial plane from the aortic arch to the skull vertex. The data was processed at the nuclear technologist's workstation for generation of MIP sequences. Angled MIPs and volume rendered reformatted images were also generated at an offline 3D workstation. Stenoses are assessed in accordance with NASCET criteria unless otherwise indicated. This CT examination was performed using dose optimization techniques as appropriate, variously including the following: *Automated exposure control *Adjustment of mA and/or kV according to patient size (this includes techniques or standardized protocols for targeted exams where dose is matched to indication/reason for exam; i.e. extremities or head) *Use of iterative reconstruction technique DLP: 723 mGy*cm FINDINGS: NECK CTA: -AORTIC ARCH: Normal in caliber. Mild atheromatous calcification. Three-vessel branching pattern. -GREAT VESSEL ORIGINS: Widely patent. No stenosis. -RIGHT COMMON CAROTID ARTERY: Normal in course and caliber to the level of the bifurcation. -CERVICAL RIGHT INTERNAL CAROTID ARTERY: Small calcified plaque is present in the carotid bulb. Normal opacification without focal stenosis or occlusion. -LEFT COMMON CAROTID ARTERY: Normal in course and caliber to the level of the bifurcation. -CERVICAL LEFT INTERNAL CAROTID ARTERY: Patent without hemodynamically significant stenosis. -CERVICAL RIGHT VERTEBRAL ARTERY: Codominant. Normal in course and caliber into the skull base. -CERVICAL LEFT VERTEBRAL ARTERY: Origin is obscured by motion artifact. Codominant. Normal in course and caliber into the skull base. OTHER, SOFT TISSUES: -No lymphadenopathy or mass. No abnormal fluid collection or soft tissue swelling. -Normal thyroid. -Imaged superior mediastinal structures normal. -Imaged lung apices clear. CTA OF THE BRAIN: -INTRACRANIAL INTERNAL CAROTID ARTERIES: No focal stenosis or occlusion. Small focal calcified plaques are present in the distal internal carotid arteries. -RIGHT ANTERIOR CEREBRAL ARTERY: Normal A1 segment.. Normal arborization of the distal segments. -LEFT ANTERIOR CEREBRAL ARTERY: Normal A1 segment.. Normal arborization of the distal segments. -ANTERIOR COMMUNICATING ARTERY: Normal. -RIGHT MIDDLE CEREBRAL ARTERY: Normal M1 segment of the MCA without focal stenosis or occlusion. Normal bifurcation. Normal arborization of the distal segments. -LEFT MIDDLE CEREBRAL ARTERY: Normal M1 segment of the MCA without focal stenosis or occlusion. Normal bifurcation. Normal arborization of the distal segments. -RIGHT VERTEBRAL ARTERY V4: Normal in course and caliber. Focal calcified plaque is present without hemodynamically significant stenosis. Normal PICA branch. -LEFT VERTEBRAL ARTERY V4: Normal in course and caliber. Focal calcified plaque at the level of the clivus without hemodynamically significant stenosis (<50%). Normal PICA branch. -BASILAR ARTERY: Normal without focal stenosis or occlusion. Normal appearance of the proximal superior cerebellar arteries. Normal basilar tip. -RIGHT POSTERIOR CEREBRAL ARTERY: Patent P1 segment. Normal opacification of the distal FUR REMODELER segments. -LEFT POSTERIOR CEREBRAL ARTERY: origin. Normal opacification of the distal FUR REMODELER segments. -POSTERIOR COMMUNICATING ARTERIES: The right is small but present. Left is patent.. Normal opacification of the superior sagittal, straight, transverse, and sigmoid sinuses. No venous thrombosis. No space-occupying hemorrhage or definite evolving infarct. CT/CT angio head neck IMPRESSION: CTA NECK: No hemodynamically significant stenosis CTA HEAD: No hemodynamically significant stenosis. Focal less than 50% stenosis of the left vertebral artery at the level of the clivus. Dr. Beverly notified Electronically signed by: Aris Delaney MD 12/07/2024 04:20 PM EDT Dictated By: Aris Delaney MD Signed By: <Electronically signed by Aris Delaney MD in OV> 12/07/24 1620 DD/ 1528 TD/TT: 12/07/24 1548 Planning Rn: [facility] External Provider IMG CT PROCEDURES Final Result * (ABNORMAL) Urinalysis, Complete, with Reflex to Culture (12/07/2024 1:40 PM EDT) Color Urine Yellow [facility] Appearance Urine Clear [facility] PH 6.5 5.0 - 9.0 [facility] Glucose Urine UA >=1000(A) Negative mg/dL [facility] Urine Blood Negative Negative [facility] Specific [place] - Urine 1.025 1.005 - 1.025 [facility] Urine Protein Negative Neg-Trace mg/dL [facility] Urine Ketones Negative Negative mg/dL [facility] Nitrite Urine Negative Negative [facility] Leukocyte Esterase Urine Negative Negative [facility] RBC Urine 0-2 0 - 2 /HPF [facility] Urine WBC 0-5 0 - 5 /HPF [facility] Urine Squamous Epithelial Cell 0-2 0 - 2 /HPF [facility] Urine Bacteria None Seen None Seen [facility] Hyaline Casts, Urine 0-2 0 - 2 /LPF [facility] 12/07/2024 1:40 PM EDT 12/07/2024 1:43 PM EDT Narrative [facility] - 12/07/2024 1:53 PM EDT Urine, Clean Catch us Generic External Data Provider LAB URINE ORDERAB LES Final Result Performing Organization Address City/State/[facility] Co de Phone Number [facility] [address] [place] [phone] * CT Head w/o Contrast (12/07/2024 12:21 PM EDT) Anatomical Region Laterality Modality Head, Neck Computed Tomogra phy 12/07/2024 12:2 1 PM EDT Narrative 12/07/2024 1:48 PM EDT [address] [address] [address] Scan Report Signed Patient: Andry Lehman MR#: [id number] : 1965 Acct:[id number] Age/Sex: 59 / M ADM Date: 12/07/24 Loc: .ED Attending Dr: Ordering Physician: Eliane Markham Date of Service: 12/07/24 Procedure(s): CT head/brain wo IV con Accession Number(s): [id number] cc: Eliane Markham; [facility] Report Number: [id number]: Total DLP = 694.00 mGy-cm EXAMINATION: CT HEAD WITHOUT CONTRAST CLINICAL INFORMATION: dizzy, blurred vision, headache COMPARISON: May 12, 2024. TECHNIQUE: Contiguous axial imaging was performed from the skull base to vertex without intravenous administration of contrast. This CT examination was performed using dose optimization techniques as appropriate, variously including the following: *Automated exposure control *Adjustment of mA and/or kV according to patient size (this includes techniques or standardized protocols for targeted exams where dose is matched to indication/reason for exam; i.e. extremities or head) *Use of iterative reconstruction technique DLP: 694 mGy-cm FINDINGS: Old cortical disruption in the nasal bones. No acute cortical disruption in the bony calvarium. No acute intracranial hemorrhage, mass effect midline shift, hydrocephalus or herniation. Cornejo-white matter differentiation is normal. Posterior cranial fossa contents demonstrated no acute intracranial hemorrhage. There is an old lacunar infarct right yary. Bilateral multifocal patchy deep periventricular white matter hypodensities. Old lacunar infarct in the basal ganglia. Vascular calcifications, intracranial. Mucosal thickening, ethmoid cells. For pneumatization frontal sinuses. Tympanic cavities and mastoid cells are aerated. CT/CT head/brain wo IV con IMPRESSION: No acute fracture, bony calvarium. No acute hemorrhage. 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 Small vessel disease. Electronically signed by: Jorge Simon MD 12/07/2024 01:45 PM EDT Dictated By: Jorge Peterson MD Signed By: <Electronically signed by Jorge Israel MD in OV> 12/07/24 1345 DD/ 1221 TD/TT: 12/07/24 1338 Planning Rn: Procedure Note Donotuseinterpreter, Image - 12/07/[address] [address] [address] Scan Report Signed Patient: Armani Lehman#: [id number] : 1965Acct:[id number] Age/Sex: 59 / MADM Date: 12/07/24 Loc: HO.ED Attending Dr: Ordering Physician: Eliane Markham Date of Service: 12/07/24 Procedure(s): CT head/brain wo IV con Accession Number(s): [id number] cc: Eliane Markham; [facility] Report Number: [id number]: Total DLP = 694.00 mGy-cm EXAMINATION: CT HEAD WITHOUT CONTRAST CLINICAL INFORMATION: dizzy, blurred vision, headache COMPARISON: May 12, 2024. TECHNIQUE: Contiguous axial imaging was performed from the skull base to vertex without intravenous administration of contrast. This CT examination was performed using dose optimization techniques as appropriate, variously including the following: *Automated exposure control *Adjustment of mA and/or kV according to patient size (this includes techniques or standardized protocols for targeted exams where dose is matched to indication/reason for exam; i.e. extremities or head) *Use of iterative reconstruction technique DLP: 694 mGy-cm FINDINGS: Old cortical disruption in the nasal bones. No acute cortical disruption in the bony calvarium. No acute intracranial hemorrhage, mass effect midline shift, hydrocephalus or herniation. Cornejo-white matter differentiation is normal. Posterior cranial fossa contents demonstrated no acute intracranial hemorrhage. There is an old lacunar infarct right yary. Bilateral multifocal patchy deep periventricular white matter hypodensities. Old lacunar infarct in the basal ganglia. Vascular calcifications, intracranial. Mucosal thickening, ethmoid cells. For pneumatization frontal sinuses. Tympanic cavities and mastoid cells are aerated. CT/CT head/brain wo IV con IMPRESSION: No acute fracture, bony calvarium. No acute hemorrhage. 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 Small vessel disease. Electronically signed by: Jorge Simon MD 12/07/2024 01:45 PM EDT Dictated By: Jorge Peterson MD Signed By: <Electronically signed by Jorge Israel MDin OV> 12/07/24 1345 DD/ 1221 TD/TT: 12/07/24 1338 Planning Rn: [facility] External Provider IMG CT PROCEDURES Final Result * (ABNORMAL) Albumin, Random Urine W/Creatinine (11/26/2024 10:47 AM EDT) Creatinine, Urine 43.29 mg/dL [facility] Microalbumin Urine 53.0 mg/L [facility] Microalbum Creatinine Ratio Ur 122.4(H) <30 ug/mg cr [facility] Comment:Albumin/Creatinine R atio Reference Ranges: Normal: < 30 ug/mg creatinine Microalbuminuria: 30 - 300 ug/mg creatinineClinical Albuminuria: > 300 ug/mg creatinine Urine 11/26/2024 10:4 7 AM EDT 11/26/2024 1:02 PM EDT [facility] LAB URINE ORDERABLES Final Re sult Performing Organization Address [facility] Co de Phone Number [facility] [address] [place] [phone] * B Type Natriuretic Peptide (BNP) (11/26/2024 10:47 AM EDT) B Type Natriuretic Peptide <10 <100 pg/mL [facility] Blood Venous blood specimen / Unknown 11/26/2024 10:47 AM EDT 11/26/2024 1:17 PM EDT [facility] LAB BLOOD ORDERABLES Final Re sult Performing Organization Address [facility] Co de Phone Number [facility] [address] [place] [phone] * Lipid Panel, Standard (11/26/2024 10:47 AM EDT) Triglycerides 125 <150 mg/dL [facility] Comment:Desirable Triglyceri de: less than 150 mg/dLBorderline High Triglyceride 150-199 mg/dLHigh Triglyceride: 200-499 mg/dLVery High Triglyceride: greater than or equal to 5OO mg/dL Cholesterol 127 <200 mg/dL [facility] Comment:Desirable Cholestero l: less than 200 mg/dLBorderline High Cholesterol: 200-239 mg/dLHigh Cholesterol: greater than 239 mg/dL LDL Cholesterol Calculated 59 <100 mg/dL [facility] Comment:Desirable LDL: less than 100 mg/dLNear Optimal/Above Optimal LDL: 110- 129 mg/dLBorderline High LDL: 130-159 mg/dLHigh LDL: 160-189 mg/dLVery High LDL: greater than or equal to 190 mg/dL HDL Cholesterol 43 >40 mg/dL [facility] Comment:Desirable HDL: great er than 40 mg/dL Note: This HDL assay may give artificially low results in patients with liver disease. Blood Venous blood specimen / Unknown 11/26/2024 10:47 AM EDT 11/26/2024 1:17 PM EDT [facility] LAB BLOOD ORDERABLES Final Re sult [facility] [address] [place] [phone] * (ABNORMAL) Comprehensive Metabolic Panel (11/26/2024 10:47 AM EDT) Sodium 139 135 - 145 mmol/L [facility] Potassium 4.2 3.3 - 5.1 mmol/L [facility] Chloride 99 96 - 108 mmol/L [facility] Carbon Dioxide 28 22 - 29 mmol/L [facility] Anion Gap 16 12 - 20 [facility] Urea Nitrogen (BUN) 17(H) 9 - 16 mg/dL [facility] Creatinine, Serum 1.01 0.5 - 1.4 mg/dL [facility] Estimated Glomerular Filt Rate >60 [facility] Comment:Chronic Kidney Disea se: Estimated GFR < 60 mL/min/1.31b0Qaaddp Kidney Disease: Estimated GFR < 15 mL/min/1.73m2 Glucose 195(H) 60 - 115 mg/dL [facility] Calcium 9.6 8.4 - 10.2 mg/dL [facility] Bilirubin, Total 0.6 0.0 - 1.0 mg/dL [facility] Aspartate Amino Transferase 22 5 - 37 U/L [facility] Alanine Aminotransferase 13 0 - 40 U/L [facility] Total Protein 7.8 6.5 - 8.0 g/dL [facility] Albumin Level 4.4 3.5 - 5.0 g/dL [facility] Alkaline Phosphatase 103 39 - 117 U/L [facility] Blood Venous blood specimen / Unknown 11/26/2024 10:47 AM EDT 11/26/2024 1:17 PM EDT [facility] LAB BLOOD ORDERABLES Final Re sult [facility] [address] [place] [phone] * (ABNORMAL) POCT HGB A1C (11/05/2024 9:00 AM EDT) Hemoglobin A1C 7.7(A) 4.0 - 6.0 % Blood 11/05/2024 9:00 AM EDT [facility] POINT OF CARE TEST ENTER/EDIT ORDERABLES Final Result * HEPATITIS C AB W/REFL TO HCV RNA, QN, PCR (02/27/2020 9:28 AM EDT) HEPATITIS C ANTIBODY NON-REACT LAYNE NON-REACT LAYNE [facility] INDEX 0.02 <1.00 [facility] Comment: HCV antibody was non-reactive. There is no laboratory evidence of HCV infection. In most cases, no further action is required. However, if recent HCV exposure is suspected, a test for HCV RNA (test code 37671) is suggested. For additional information please refer to http://education.[employer]/faq/DXA57g0 (This link is being provided for informational/ educational purposes only.) 02/27/2020 9:28 AM EDT Marcos Robles INDUSTRIAL REFRIGERATION MECHANIC HISTORICAL/NON ORDERABLE [place] BS Final Result Performing Organization Address [facility] Co de Phone Number [facility] [address] [place] [address], * HIV 1/2 ANTIGEN/ANTIBODY,FOURTH GENERATION W/RFL (02/27/2020 9:28 AM EDT) HIV-1/2 ANTIGEN AND ANTIBODIES, 4TH GENERATION W/ REFLEX NON-REACT LAYNE NON-REACT LAYNE [facility] Comment: HIV-1 antigen and HIV-1/HIV-2 antibodies were not detected. There is no laboratory evidence of HIV infection. PLEASE NOTE: This information has been disclosed to you from records whose confidentiality may be protected by state law. If your state requires such protection, then the state law prohibits you from making any further disclosure of the information without the specific written consent of the person to whom it pertains, or as otherwise permitted by law. A general authorization for the release of medical or other information is NOT sufficient for this purpose. For additional information please refer to http://education.[employer]/faq/ZGW828 (This link is being provided for informational/ educational purposes only.) The performance of this assay has not been clinically validated in patients less than 2 years old. 02/27/2020 9:28 AM EDT Marcos Robles INDUSTRIAL REFRIGERATION MECHANIC LAB BLOOD ORDERABLES Final Result Performing Organization Address [facility] de Phone Number [facility] [address] [place] [address], * (ABNORMAL) Colonoscopy (06/20/2015) Colonoscopy Abnormal( A) Normal Comment:polyps-5 year follow up Historical Provider MD HEALTH MAINTENANCE Final Result from Last 3 Months or Most Recently Relevant to Health Maintenance Insurance [facility] ONE CARE < 65 DENTAL - [facility] [address] [place] [address] Care Teams Tetryl Wringer Operator Relationship Specialty Start Date End Date Carmen Mejia FNP [address] [place] [phone] PCP - General Family Medicine 03/18/21
--- OUTSIDE RECORDS SUMMARY | 2025-02-12 11:44 | XMS_ITS | Encounter Summary ---
Author Organization [employer] Address [address] [facility] [address] [place] [address] Care Team Providers Care Electronic Musical Instrument Repairer Name Role Phone Carmen Mejia [facility] Primary Care Provider [phone] Reason for Visit * Reason Comments Med Refill Encounter Details Date Type Department Care Team (Late st Contact Info) Description 10/12/2023 Refill [facility] [address] [place], [place] [phone] Carmen Mejia [facility] [address] [place] [address] Primary insomnia Social History Tobacco Use Types [...] Description 02/25/2025 9:00 AM EDT Office Visit [facility] [address] [place] [phone] Carmen Mejia FNP [address] [place] [phone] 04/02/2025 11:00 AM EDT Office Visit [address] [address] documented as of this encounter Visit Diagnoses Diagnosis Primary insomnia Persistent disorder of initiating or maintaining sleep documented in this encounter Additional Health Concerns Assessment Noted Time PHQ-9 Depression Total Score: 24 023 9:04 AM EDT documented as of this encounter Care Teams Electronic Musical Instrument Repairer Relationship Specialty Start Date End Date Carmen Mejia FNP [address] [place] [phone] PCP - General Family Medicine 03/18/21 documented as of this encounter
--- OUTSIDE RECORDS SUMMARY | 2025-02-12 11:44 | XMS_ITS | Encounter Summary ---
Author Organization [employer] Address 75 [facility] 7t [place] [address] Care Team Providers Care Siding Coreboard Inspector Name Role Phone Carmen Mejia [employer] Primary Care Provider [phone] Encounter Details Date Type Department Care Team (Late Contact Info) Description 07/07/2022 Orders Only [facility] CHC MED & PEDS [address] [place] [address] Ritika Mcgovern LPN Social History Tobacco Use [...] 02/25/2025 9:00 AM EDT Office Visit [facility] MEDICINE [address] [place] [address] Carmen Mejia FNP 230 [place] [address] 04/02/2025 11:00 AM EDT Office Visit [facility] MEDICINE [address] [place] [address] documented as of this encounter Visit Diagnoses Not on filedocumented in this encounter Care Teams Siding Coreboard Inspector Relationship Specialty Start Date End Date Carmen Mejia FNP [address] [place] [address] [place] [address] PCP - General Family Medicine 03/18/21 documented as of this encounter
--- OUTSIDE RECORDS SUMMARY | 2025-02-12 11:44 | XMS_ITS | Encounter Summary ---
Author Organization [employer] Address 75 [facility] 7t [place] [address] Care Team Providers Care Database Administration Manager Name Role Phone Carmen Mejia [facility] Primary Care Provider [phone] Reason for Visit * Reason Comments Med Refill Encounter Details Date Type Department Care Team (Late st Contact Info) Description 01/08/2024 Refill [facility] MEDICINE [address] [place], [place] [phone] [facility] 230 [place] [address] Moderate persistent asthma without complication Social History [...] Description 02/25/2025 9:00 AM EDT Office Visit [facility] MEDICINE [address] [place] [address] Carmen Mejia FNP [address] [place] [address] 04/02/2025 11:00 AM EDT Office Visit [address] [address] documented as of this encounter Visit Diagnoses Diagnosis Moderate persistent asthma without complication documented in this encounter Additional Health Concerns Assessment Noted Time PHQ-9 Depression Total Score: 0 11/09/19 24 9:34 AM EDT documented as of this encounter Care Teams Database Administration Manager Relationship Specialty Start Date End Date Carmen Mejia FNP [address] [place] [address] PCP - General Family Medicine 03/18/21 documented as of this encounter
--- OUTSIDE RECORDS SUMMARY | 2025-02-12 11:44 | XMS_ITS | Encounter Summary ---
Author Organization [employer] Address 75 [facility] 7t [place] [address] Care Team Providers Care Pumpman Name Role Phone Roberto [facility] Primary Care Provider [phone] Reason for Visit * Reason Comments Med Refill Encounter Details Date Type Department Care Team (Late st Contact Info) Description 01/02/2024 Refill [facility] CHC MED & PEDS [address] [place], [place] [phone] [place], [facility] [address] [facility] [place] [address] Nontraumatic incomplete tear of rotator cuff, unspecified [...] Description 02/25/2025 9:00 AM EDT Office Visit [address] [address] Carmen Mejia FNP [address] [place] [address] 04/02/2025 11:00 AM EDT Office Visit [address] [address] documented as of this encounter Visit Diagnoses Diagnosis Nontraumatic incomplete tear of rotator cuff, unspecified laterality documented in this encounter Additional Health Concerns Assessment Noted Time PHQ-9 Depression Total Score: 0 11/09/19 24 9:34 AM EDT documented as of this encounter Care Teams Pumpman Relationship Specialty Start Date End Date Carmen Mejia FNP [address] [place] [address] PCP - General Family Medicine 03/18/21 documented as of this encounter
== END 2025-02-12 12:07 | disposition home or self-care (01) ==
LOC: HO.HUSH 10:52
PROVIDERS: PCP Registered Nurse; Visit Provider Urology
DX: E11.69 Type 2 diabetes mellitus with other specified complication (principal); N52.1 Erectile dysfunction due to diseases classified elsewhere; E29.1 Testicular hypofunction; N48.1 Balanitis
CPT/HCPCS: 99214

== ENCOUNTER → 2025-02-12 10:51 | Outpatient (BNVA) | payer OTHER, SELFPAY | PROVIDERS: PCP Registered Nurse; Visit Provider Urology | DX: E29.1 Testicular hypofunction (principal); N52.1 Erectile dysfunction due to diseases classified elsewhere; E11.69 Type 2 diabetes mellitus with other specified complication; N48.1 Balanitis | CPT/HCPCS: 99212 ==

== ENCOUNTER → 2025-02-28 23:59 | Outpatient (BNV) | payer OTHER, SELFPAY ==
--- NOTE | 2025-03-06 13:04 | MHC.OFFVIS ---
Intake Visit Reasons: Remote HF monitoring- [employer] Allergies avocado (AVOCADO) Allergy (Severe, Verified 03/06/25 08:34) HIVES/SOB lisinopril Allergy (Severe, Verified 03/06/25 08:34) Unknown passion fruit (PASSION FRUIT) Allergy (Severe, Verified 03/06/25 08:34) HIVES/SOB sacubitril (Entresto) Allergy (Severe, Verified 03/06/25 08:34) Unknown valsartan (Entresto) Allergy (Severe, Verified 03/06/25 08:34) Unknown soy (SOY) Allergy (Unknown, Verified 03/06/25 08:34) SWELLING acetaminophen (From Percocet) Adverse Reaction (Verified 03/06/25 08:34) Gastrointestinal Upset oxycodone (From Percocet) Adverse Reaction (Verified 03/06/25 08:34) Gastrointestinal Upset PFSH Medical History HFrEF (heart failure with reduced ejection fraction) ICD (implantable cardioverter-defibrillator) in place Nonischemic cardiomyopathy HTN (hypertension) Diabetes mellitus CAD (coronary artery disease) Surgical History History of carpal tunnel surgery H/O colonoscopy History of cardiac cath (~2017) Family History Father No problems noted. Mother No problems noted. Social History Household Members: Spouse Alcohol intake: former Patient Tobacco Use Status: Former Tobacco user Second Hand Smoke Exposure: No Office Procedures Cardiac Device Check Cardiac Device Check Details: Remote heart failure report generated 02/28/2025. Heart failure parameters are stable [id number] Cardiac Device Interrogation, cardio physiologic monitor Procedure code (CPT) selection complete Assessment & Plan Assessment & Plan (1) ICD (implantable cardioverter-defibrillator) in place: Comment: implanted 2018-Biotronik Code(s): Z95.810 - Presence of automatic (implantable) cardiac defibrillator Category: Medical Plan: See above Coding Level of Care Code Procedure Only Diagnoses ICD (implantable cardioverter-defibrillator) in place Z95.810 CPT Codes Cardiac Device Check - Cardiac Device 15: [id number] Cardiac Device Interrogation, cardio physiologic monitor ([id number])
== END ==
PROVIDERS: PCP Registered Nurse; Visit Provider Internal Medicine Cardiovascular Disease
DX: Z45.02 Encounter for adjustment and management of automatic implantable cardiac defibrillator (principal)
CPT/HCPCS: 93297

== ENCOUNTER 2025-03-06 08:26 | Outpatient (AMB) | payer OTHER, SELFPAY ==
--- NOTE | 2025-03-06 08:33 | MHC.OFFVIS ---
Vital Signs 03/06/25 08:34 Height 5 ft 8 in Weight 205 lb BMI 31.2 BP 152/72 H Blood Pressure Location Rt brachial Position Sitting Pulse 86 Pulse Source Pulse Oximeter Pulse Oximetry (%) 92 Oxygen Delivery Method Room Air Intake Visit Reasons: Dysphagia unspecified type Intake Note: New/Returning pt for initial eval of dysphagia. Last colo 2015 w/ Dr. Vidal. CC: C.O. dysphagia, idiopathic in nature, and RUQ pain which is worse with palpation. No additional sx or concerns at this time. Video Production Coordinator Required: No Accompanied by: Self / Same As Patient Allergies avocado (AVOCADO) Allergy (Severe, Verified 03/06/25 08:34) HIVES/SOB lisinopril Allergy (Severe, Verified 03/06/25 08:34) Unknown passion fruit (PASSION FRUIT) Allergy (Severe, Verified 03/06/25 08:34) HIVES/SOB sacubitril (Entresto) Allergy (Severe, Verified 03/06/25 08:34) Unknown valsartan (Entresto) Allergy (Severe, Verified 03/06/25 08:34) Unknown soy (SOY) Allergy (Unknown, Verified 03/06/25 08:34) SWELLING acetaminophen (From Percocet) Adverse Reaction (Verified 03/06/25 08:34) Gastrointestinal Upset oxycodone (From Percocet) Adverse Reaction (Verified 03/06/25 08:34) Gastrointestinal Upset HPI HPI Dysphagia unspecified type: Details: LAST VISIT WITH TIFFANY SEPULVEDA 02/03/2023 Assessment & Plan (1) Dysphagia: Comment: dysphagia/gastro paresis, diabetic male Eat slowly chews food well barium swallow- still awaiting No teeth, no dentures likely plays a role-currently being fit Code(s): R13.10 - Dysphagia, unspecified (2) ICD (implantable cardioverter-defibrillator) in place: Comment: implanted 2017-[employer] Code(s): Z95.810 - Presence of automatic (implantable) cardiac defibrillator Patient Instructions: Pleasant 57-year-old male CAD defer related or, with dysphagia-likely not having dentures plays a role Reinforced eating slowly, chewing well, Await barium study Will follow-up, encouraged to call with questions or concerns TODAY'S VISIT Patient is here today for requested visit. Patient previously seen by Tiffany SEPULVEDA. Last visit was in January of 2023. Patient presents with similar symptoms as before. Epigastric pain no matter what he eats. Pain in not always related to meals. Patient reports dysphagia, not always with the same meals. Patient reports severe reflux with food regurgitation at nighttime when he lays down. Patient does not eat late at night more than 3 hours snack or food before he lays down. Patient reports that he is moving his bowels daily. Feels like he empties them completely. Currently he is taking Nexium twice a day. Feels like it is not very well controlled. Patient denies any nausea or vomiting. Reports dyspepsia with dysphagia without odynophagia. Patient had colonoscopy in 2015 with 1 benign polyp in the rectum. Patient never had upper endoscopy before. [facility] Medical History HFrEF (heart failure with reduced ejection fraction) ICD (implantable cardioverter-defibrillator) in place Nonischemic cardiomyopathy HTN (hypertension) Diabetes mellitus CAD (coronary artery disease) Surgical History History of carpal tunnel surgery H/O colonoscopy History of cardiac cath (~2016) Family History Father No problems noted. Mother No problems noted. Social History Household Members: Spouse Alcohol intake: former Patient Tobacco Use Status: Former Tobacco user Second Hand Smoke Exposure: No Physical Exam Vital Signs: Last Vital Signs Pulse 86 03/06/25 08:34 BP 152/72 H 03/06/25 08:34 Pulse Ox 92 03/06/25 08:34 Oxygen Delivery Method Room Air 03/06/25 08:34 BMI result Body Mass Index 31.2 Assessment & Plan Assessment & Plan (1) Acid reflux: Code(s): K21.9 - Gastro-esophageal reflux disease without esophagitis Category: Medical Qualifiers: Esophagitis presence: esophagitis presence not specified Qualified Code(s): K21.9 - Gastro-esophageal reflux disease without esophagitis (2) Dysphagia: Code(s): R13.10 - Dysphagia, unspecified Category: Medical Qualifiers: Dysphagia type: pharyngoesophageal phase Qualified Code(s): R13.14 - Dysphagia, pharyngoesophageal phase (3) H. pylori infection: Code(s): A04.8 - Other specified bacterial intestinal infections Category: Medical (4) Postprandial epigastric pain: Code(s): R10.13 - Epigastric pain Plan Will change PPI therapy. Patient has been on Nexium for a while. Start lansoprazole in the morning and take famotidine at night time. Continue avoiding dietary triggers only that snacking. Staying upright for minimal 3 hours after meals discussed with patient. Patient will be sent for upper GI with barium swallow to evaluate reflux, hernia. Next visit patient will be sent for upper endoscopy. Patient is due to go for colonoscopy. Last colonoscopy in 2016. Patient will return in 3 months, sooner on as needed basis. Patient is agreeable to this plan and verbalizes understanding of instructions. He was given the opportunity to ask questions and all questions answered. Thank you for allowing me to participate in his care Orders: Orders [place] upper GI w air w Ba Swallow Today K21.9 - Gastro-esophageal reflux disease without esophagitis Medications: New lansoprazole 30 mg PO DAILY 30 caps 3RF K21.9 - Gastro-esophageal reflux disease without esophagitis famotidine 40 mg PO BEDTIME 30 tabs 3RF K21.9 - Gastro-esophageal reflux disease without esophagitis Discontinued esomeprazole magnesium (Nexium) Discontinued Reason: Doctor's Order 40 mg PO TID 14 days 42 caps 0RF A04.8 - Other specified bacterial intestinal infections Coding Level of Care Code Est Pt Level 4 (26308) Complex EM visit Add On G2211 Diagnoses Gastroesophageal reflux disease, unspecified whether esophagitis present K21.9 Esophagitis presence: esophagitis presence not specified Pharyngoesophageal dysphagia R13.14 Dysphagia type: pharyngoesophageal phase H. pylori infection A04.8 Postprandial epigastric pain R10.13 Time Spent (min) 40 Comment 25 minutes spent with patient and additional 15 minutes spent reviewing his records
[2025-03-06 08:34] VITALS: BP 152/72; PULSE 86; O2SAT 92; BMI 31.2
--- OUTSIDE RECORDS SUMMARY | 2025-03-06 09:26 | XMS_ITS | Encounter Summary ---
Author Organization [employer] Address 75 [facility] 7t [place] [address] Care Team Providers Care Mechanical Energy Engineer Name Role Phone Carmen Mejia [facility] Primary Care Provider [phone] Encounter Details Date Type Department Care Team (Late Contact Info) Description 03/07/2023 Orders Only [facility] CHC MED & PEDS [address] [place] [address] Shannon Sargent LPN Social History Tobacco Use [...] Care Team (Late st Contact Info) Description 04/02/2025 11:00 AM EDT Office Visit [facility] MEDICINE [address] [place] [address] documented as of this encounter Visit Diagnoses Not on filedocumented in this encounter Additional Health Concerns Assessment Noted Time PHQ-9 Depression Total Score: 0 01/14/20 23 9:12 AM EDT documented as of this encounter Care Teams Mechanical Energy Engineer Relationship Specialty Start Date End Date Carmen Mejia FNP [address] [place] [address] PCP - General Family Medicine 03/18/21 documented as of this encounter
--- OUTSIDE RECORDS SUMMARY | 2025-03-06 09:27 | XMS_ITS | Encounter Summary ---
Author Organization [employer] Address 75 [facility] 7t [place] [address] Care Team Providers Care Book Coverer Name Role Phone Carmen Mejia [facility] Primary Care Provider [phone] Reason for Visit * Reason Comments Med Refill Encounter Details Date Type Department Care Team (Late st Contact Info) Description 11/18/2022 Refill [facility] MEDICINE [address] [place], [place] [phone] [facility] 230 [place], [place] [phone] Primary insomnia; Type 2 diabetes mellitus with other specified complication, without long-term current use of insulin ([facility]) Social History Tobacco Use Types Packs/Day [...] Description 04/02/2025 11:00 AM EDT Office Visit [facility] MEDICINE [address] [place] [phone] documented as of this encounter Visit Diagnoses Diagnosis Primary insomnia Persistent disorder of initiating or maintaining sleep Type 2 diabetes mellitus with other specified complication, without long-term current use of insulin ([facility]) documented in this encounter Additional Health Concerns Assessment Noted Time PHQ-9 Depression Total Score: 0 10/15/19 23 8:58 AM EDT documented as of this encounter Care Teams Book Coverer Relationship Specialty Start Date End Date Carmen Mejia FNP [address] [place] [address] PCP - General Family Medicine 03/18/21 documented as of this encounter
--- OUTSIDE RECORDS SUMMARY | 2025-03-06 09:27 | XMS_ITS | Encounter Summary ---
Author Organization [employer] Address [address] [place] [address] 7t [place] [address] Care Team Providers Care Manager Clinical Research Name Role Phone Carmen Mejia [employer] INFORMATION ARCHIT[employer] Primary Care Provider [phone] Encounter Details Date Type Department Care Team (Late st Contact Info) Description 07/08/2022 Orders Only [facility] MEDICINE [address] [place] [address] Shannon Sargent LPN Social History Tobacco Use [...] Description 04/02/2025 11:00 AM EDT Office Visit [facility] MEDICINE [address] [place] [address] documented as of this encounter Visit Diagnoses Not on filedocumented in this encounter Care Teams Manager Clinical Research Relationship Specialty Start Date End Date Carmen Mejia FNP [address] [place] [address] PCP - General Family Medicine 03/18/21 documented as of this encounter
--- OUTSIDE RECORDS SUMMARY | 2025-03-06 09:27 | XMS_ITS | Encounter Summary ---
Author Organization [employer] Address 75 [facility] 7t [place] [address] Care Team Providers Care Chemical Instrumentation Officer Name Role Phone Roberto [facility] Primary Care Provider [phone] Reason for Visit * Reason Comments Med Refill Encounter Details Date Type Department Care Team (Late st Contact Info) Description 01/02/2024 Refill [facility] CHC MED & PEDS [address] [place] [address], [place] [phone] [place], [facility] [address] [facility] [place] [address] Nontraumatic incomplete tear of rotator cuff, unspecified [...] Description 04/02/2025 11:00 AM EDT Office Visit [facility] MEDICINE [address] [place] [address] documented as of this encounter Visit Diagnoses Diagnosis Nontraumatic incomplete tear of rotator cuff, unspecified laterality documented in this encounter Additional Health Concerns Assessment Noted Time PHQ-9 Depression Total Score: 0 11/09/19 24 9:34 AM EDT documented as of this encounter Care Teams Chemical Instrumentation Officer Relationship Specialty Start Date End Date Carmen Mejia FNP [address] [place] [address] PCP - General Family Medicine 03/18/21 documented as of this encounter
--- OUTSIDE RECORDS SUMMARY | 2025-03-06 09:27 | XMS_ITS | Encounter Summary ---
Author Organization [employer] Address 75 [facility] 7[place] [address] Care Team Providers Care Transitional Studies Instructor Name Role Phone Carmen Mejia [facility] Primary Care Provider [phone] Reason for Visit * Reason Onset Date Comments Referral 02/25/2025 Encounter Details Date Type Department Care Team (Late st Contact Info) Description 02/25/2025 Telephone [facility] MEDICINE 230 [place], [place] [phone] Carmen Mejia [facility] 230 [place] [address] Referral Social History Tobacco Use Types Packs/Day Years [...] encounter Miscellaneous Notes * Telephone Encounter - Delphine Negron - 02/25/2025 9:55 AM EDT Tc from pt requesting for referral to general surgeon be faxed too [phone] Contact pt at [phone] documented in this encounter Plan of Treatment Upcoming Encounters Date Type Department Care Team (Late st Contact Info) Description 04/02/2025 11:00 AM EDT Office Visit [facility] MEDICINE [address] [place] [address] documented as of this encounter Visit Diagnoses Not on filedocumented in this encounter Additional Health Concerns Assessment Noted Time PHQ-9 Depression Total Score: 0 11/06/19 25 8:57 AM EDT documented as of this encounter Care Teams Transitional Studies Instructor Relationship Specialty Start Date End Date Carmen Mejia FNP 230 [place] [address] PCP - General Family Medicine 03/18/21 documented as of this encounter
--- OUTSIDE RECORDS SUMMARY | 2025-03-06 09:27 | XMS_ITS | Encounter Summary ---
Author Organization [employer] Address 75 [facility] 7t [place] [address] Care Team Providers Care It Application Architect Name Role Phone Carmen Mejia [facility] Primary Care Provider [phone] Reason for Visit * Reason Comments Med Refill Encounter Details Date Type Department Care Team (Late st Contact Info) Description 10/12/2023 Refill [facility] MEDICINE [address] [place], [place] [phone] Carmen Mejia [facility] 230 [place] [address] Primary insomnia Social History Tobacco Use Types [...] Description 04/02/2025 11:00 AM EDT Office Visit [facility] MEDICINE [address] [place] [address] documented as of this encounter Visit Diagnoses Diagnosis Primary insomnia Persistent disorder of initiating or maintaining sleep documented in this encounter Additional Health Concerns Assessment Noted Time PHQ-9 Depression Total Score: 24 023 9:04 AM EDT documented as of this encounter Care Teams It Application Architect Relationship Specialty Start Date End Date Carmen Mejia FNP 230 [place] [address] PCP - General Family Medicine 03/18/21 documented as of this encounter
--- OUTSIDE RECORDS SUMMARY | 2025-03-06 09:27 | XMS_ITS | Encounter Summary ---
Author Organization [employer] Address 75 [facility] 7t [place] [address] Care Team Providers Care Evaporator Helper Name Role Phone Roberto Carmen [facility] Primary Care Provider [phone] Encounter Details Date Type Department Care Team (Late Contact Info) Description 10/15/2022 Orders Only [facility] CHC MED & PEDS [address] [place], [place] [phone] Ritika Mcgovern LPN Social History Tobacco Use [...] Department Care Team (Late Contact Info) Description 04/02/2025 11:00 AM EDT Office Visit [facility] MEDICINE 230 [place] [address] documented as of this encounter Visit Diagnoses Not on filedocumented in this encounter Additional Health Concerns Assessment Noted Time PHQ-9 Depression Total Score: 0 10/15/19 23 8:58 AM EDT documented as of this encounter Care Teams Evaporator Helper Relationship Specialty Start Date End Date Carmen Mejia FNP [address] [place] [address] PCP - General Family Medicine 03/18/21 documented as of this encounter
--- OUTSIDE RECORDS SUMMARY | 2025-03-06 09:27 | XMS_ITS | Encounter Summary ---
Author Organization [employer] Address 75 [facility] 7t [place] [address] Care Team Providers Care Psychologist Counseling Name Role Phone Carmen Mejia [facility] Primary Care Provider [phone] Encounter Details Date Type Department Care Team (Late st Contact Info) Description 06/11/2022 Orders Only [facility] CHC MED & PEDS [address] [place] [address] Ritika Mcgovern LPN Social History Tobacco Use [...] Description 04/02/2025 11:00 AM EDT Office Visit [facility] MEDICINE 230 [place] [address] documented as of this encounter Visit Diagnoses Not on filedocumented in this encounter Care Teams Psychologist Counseling Relationship Specialty Start Date End Date Carmen Mejia FNP 230 [place] [address] PCP - General Family Medicine 03/18/21 documented as of this encounter
--- OUTSIDE RECORDS SUMMARY | 2025-03-06 09:27 | XMS_ITS | Encounter Summary ---
Author Organization [employer] Address 75 [facility] 7t [place] [address] Care Team Providers Care Director Of Property Management Name Role Phone Roberto [facility] Primary Care Provider [phone] Reason for Visit * Reason Comments Med Refill Encounter Details Date Type Department Care Team (Late st Contact Info) Description 01/03/2024 Refill [facility] CHC MED & PEDS [address] [place], [place] [phone] [place], [facility] [address] [place] [address] Nontraumatic incomplete tear of rotator cuff, unspecified [...] Description 04/02/2025 11:00 AM EDT Office Visit [facility] MEDICINE 230 [place] [address] documented as of this encounter Visit Diagnoses Diagnosis Nontraumatic incomplete tear of rotator cuff, unspecified laterality documented in this encounter Additional Health Concerns Assessment Noted Time PHQ-9 Depression Total Score: 0 11/09/19 24 9:34 AM EDT documented as of this encounter Care Teams Director Of Property Management Relationship Specialty Start Date End Date Carmen Mejia FNP [address] [place] [address] PCP - General Family Medicine 03/18/21 documented as of this encounter
--- OUTSIDE RECORDS SUMMARY | 2025-03-06 09:27 | XMS_ITS | Encounter Summary ---
Author Organization [employer] Address 75 [facility] 7t [place] [address] Care Team Providers Care Job Service Consultant Name Role Phone Roberto [facility] Primary Care Provider [phone] Reason for Visit * Reason Comments Med Refill Encounter Details Date Type Department Care Team (Late st Contact Info) Description 01/05/2025 Refill [facility] 230 [place], [place] [phone] [facility] 230 [place] [address] Diabetes mellitus type 2 with neurological manifestations [...] Description 04/02/2025 11:00 AM EDT Office Visit [facility] MEDICINE 230 [place] [address] documented as of this encounter Visit Diagnoses Diagnosis 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) documented in this encounter Additional Health Concerns Assessment Noted Time PHQ-9 Depression Total Score: 0 11/06/19 25 8:57 AM EDT documented as of this encounter Care Teams Job Service Consultant Relationship Specialty Start Date End Date Carmen Mejia FNP 230 [place] [address] PCP - General Family Medicine 03/18/21 documented as of this encounter
--- OUTSIDE RECORDS SUMMARY | 2025-03-06 09:27 | XMS_ITS | Encounter Summary ---
Author Organization [employer] Address 75 [facility] 7t [place] [address] Care Team Providers Care Dean Of Graduate Studies Name Role Phone Carmen Mejia [facility] Primary Care Provider [phone] Encounter Details Date Type Department Care Team (Late st Contact Info) Description 05/05/2023 Abstract [facility] MEDICINE [address] [place] [address] Dai Gibson Social History Tobacco Use Types Packs/Day [...] Description 04/02/2025 11:00 AM EDT Office Visit [facility] MEDICINE 230 [place] [address] documented as of this encounter Visit Diagnoses Not on filedocumented in this encounter Additional Health Concerns Assessment Noted Time PHQ-9 Depression Total Score: 24 023 9:04 AM EDT documented as of this encounter Care Teams Dean Of Graduate Studies Relationship Specialty Start Date End Date Carmen Mejia FNP 230 [place] [address] PCP - General Family Medicine 03/18/21 documented as of this encounter
--- OUTSIDE RECORDS SUMMARY | 2025-03-06 09:27 | XMS_ITS | Encounter Summary ---
Author Organization [employer] Address [address] [facility] [address] [place] [address] Care Team Providers Care Sand Tester Name Role Phone Carmen Mejia MEDICAL OFFICE ADMINISTRATOR Primary Care Provider [phone] Encounter Details Date Type Department Care Team (Late st Contact Info) Description 07/07/2022 Orders Only [facility] [address] [place] [address] Ritika Mcgovern LPN Social History Tobacco Use [...] Description 04/02/2025 11:00 AM EDT Office Visit [facility] [address] [place] [address] documented as of this encounter Visit Diagnoses Not on filedocumented in this encounter Care Teams Sand Tester Relationship Specialty Start Date End Date Carmen Mejia FNP [address] [place] [address] PCP - General Family Medicine 03/18/21 documented as of this encounter
--- OUTSIDE RECORDS SUMMARY | 2025-03-06 09:27 | XMS_ITS | Encounter Summary ---
Author Organization [employer] Address [address] [facility] [address] [place] [address] Care Team Providers Care Reconciliation Accountant Name Role Phone Carmen Mejia [facility] Primary Care Provider [phone] Reason for Visit * Reason Comments Med Refill Encounter Details Date Type Department Care Team (Late st Contact Info) Description 11/16/2022 Refill [facility] [address] [place], [place] [phone] Melani Haider FNP [address] [place], [place] [phone] Other chronic pain Social History Tobacco Use [...] Description 04/02/2025 11:00 AM EDT Office Visit [facility] [address] [place], [place] [phone] documented as of this encounter Visit Diagnoses Diagnosis Other chronic pain documented in this encounter Additional Health Concerns Assessment Noted Time PHQ-9 Depression Total Score: 0 10/15/19 23 8:58 AM EDT documented as of this encounter Care Teams Reconciliation Accountant Relationship Specialty Start Date End Date GarnettCarmen FNP [address] [place] [address] PCP - General Family Medicine 03/18/21 documented as of this encounter
--- OUTSIDE RECORDS SUMMARY | 2025-03-06 09:27 | XMS_ITS | Encounter Summary ---
Author Organization [employer] Address [address] [facility] [address] [place] [address] Care Team Providers Care String Cutter Name Role Phone Carmen Mejia [facility] Primary Care Provider [phone] Reason for Visit * Reason Comments Med Refill Encounter Details Date Type Department Care Team (Late st Contact Info) Description 01/08/2024 Refill [facility] [address] [place], [place] [phone] [facility] [address] [place] [address] Moderate persistent asthma without complication Social History [...] Description 04/02/2025 11:00 AM EDT Office Visit [facility] [address] [place] [address] documented as of this encounter Visit Diagnoses Diagnosis Moderate persistent asthma without complication documented in this encounter Additional Health Concerns Assessment Noted Time PHQ-9 Depression Total Score: 0 11/09/19 24 9:34 AM EDT documented as of this encounter Care Teams String Cutter Relationship Specialty Start Date End Date Carmen Mejia FNP [address] [place] [address] PCP - General Family Medicine 03/18/21 documented as of this encounter
--- OUTSIDE RECORDS SUMMARY | 2025-03-06 09:27 | XMS_ITS | Encounter Summary ---
Author Organization [employer] Address [address] [facility] [address] [place] [address] Care Team Providers Care Wood Mechanist Name Role Phone Carmen Mejia DRAWING CHECKER Primary Care Provider [phone] Reason for Visit * Reason Onset Date Comments denture appt PA 11/02/2022 Encounter Details Date Type Department Care Team (Late st Contact Info) Description 11/02/2022 Telephone [facility] [address] [place] [address] Bal Aponte, DMD [address] [place] [address] denture appt PA Social History Tobacco Use [...] 11/02/2022 11:09 AM EDT Rep from [facility] called in checking in on the status [...] Description 04/02/2025 11:00 AM EDT Office Visit [facility] [address] [place] [address] documented as of this encounter Visit Diagnoses Not on filedocumented in this encounter Additional Health Concerns Assessment Noted Time PHQ-9 Depression Total Score: 0 10/15/19 23 8:58 AM EDT documented as of this encounter Care Teams Wood Mechanist Relationship Specialty Start Date End Date Carmen Mejia FNP [address] [place] [address] PCP - General Family Medicine 03/18/21 documented as of this encounter
--- OUTSIDE RECORDS SUMMARY | 2025-03-06 09:27 | XMS_ITS | Clinical Summary ---
Author Organization [employer] Address [address] [facility] [address] [place] [address] Care Team Providers Care Crm Marketing Manager Name Role Phone Roberto [facility] Primary Care Provider [phone] Allergies Active Allergy Reactions Criticality Noted Date [...] 1 TABLET BY MOUTH EVERY MORNING (CALL [phone] FOR APPOINTMENT (Dr. Pillai)) 023 Active carvedilol (Coreg) 25 MG tablet TAKE 1 TABLET BY MOUTH TWICE DAILY IN THE MORNING AND IN THE EVENING WITH FOOD 023 Active atorvastatin (Lipitor) 40 MG tablet Take 40 mg by mouth at bedtime. 023 Active Aspirin Low Dose 81 MG EC tablet TAKE 1 TABLET BY MOUTH EVERY MORNING (CALL [phone] FOR APPOINTMENT (Dr. Pillai )) 023 Active [...] BLOOD SUGAR THREE TIMES DAILY 100 each Active budesonide-formot jaime (Symbicort) 160-4.5 MCG/ACT inhalerIndication s:Chronic obstructive pulmonary disease, unspecified COPD type ([facility]) INHALE 2 PUFFS BY MOUTH TWICE DAILY IN THE MORNING AND IN THE EVENING RINSE MOUTH AFTER USING. 10.2 g Active omeprazole (PriLOSEC) [address] capsuleIndication s:Dysphagia, unspecified type TAKE 1 CAPSULE BY MOUTH TWICE DAILY 60 capsule 025 Active QUEtiapine (SEROquel) 50 MG tabletIndications :Type 2 diabetes mellitus with other specified complication, without long-term current use of insulin ([facility]) TAKE 2 TABLETS BY MOUTH EVERY DAY AT BEDTIME 60 tablet 025 Active Jardiance 25 MGIndications:Typ e 2 diabetes mellitus with other specified complication, without long-term current use of insulin ([facility]) TAKE 1 TABLET BY MOUTH EVERY MORNING 30 tablet Active citalopram (CeleXA) 20 MG tabletIndications :Mood disorder ([facility]) TAKE 1 TABLET BY MOUTH EVERY MORNING 30 tablet 025 Active citalopram (CeleXA) 10 MG tabletIndications :Mood disorder ([facility]) TAKE 1 TABLET BY MOUTH EVERY MORNING 30 tablet 025 Active cetirizine (ZyrTEC) 10 MG tabletIndications :Moderate persistent asthma without complication TAKE 1 TABLET BY MOUTH EVERY MORNING 30 tablet 025 Active Multiple Vitamin (Multivitamin) tabletIndications :Diabetes mellitus type 2 with neurological manifestations ([facility]) TAKE 1 TABLET BY MOUTH EVERY MORNING 30 tablet 025 Active cyanocobalamin (Vitamin B-12) 1000 MCG tablet TAKE 1 TABLET BY MOUTH EVERY MORNING 30 tablet 025 Active zolpidem (Ambien) 5 MG tabletIndications :Primary insomnia TAKE 1 TABLET BY MOUTH AT BEDTIME 30 tablet 1 025 Active acetaminophen-cod eine (Tylenol w/ Codeine #4) 300-60 MG tabletIndications :Nontraumatic incomplete tear of rotator cuff, unspecified laterality Take 1 tablet by mouth every 8 (eight) hours if needed for moderate pain for up to 28 days. Do not start before February 22, 2025. 84 tablet 025 2024 Active Tirzepatide (Mounjaro) 7.5 MG/0.5ML solution auto-injectorIndi cations:Type 2 diabetes mellitus with hyperglycemia, without long-term current use of insulin (CMS/HCC) Inject 7.5 mg under the skin 1 (one) time per week. 2 mL 3 Active Multiple Vitamin (multivitamin) tabletIndications :Diabetes mellitus [...] MORNING 30 tablet 5 025 2024 Discontinued Dulaglutide (Trulicity) 4.5 MG/0.5ML solution auto-injectorIndi cations: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) Inject 4.5 mg under the skin 1 (one) time per week. 2 mL 3 025 2024 Discontinued Tirzepatide (Mounjaro) 5 MG/0.5ML solution auto-injectorIndi cations: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) Inject 5 mg under the skin 1 (one) time per week. 2 mL 1 025 2024 Discontinued zolpidem (Ambien) 5 MG tabletIndications :Primary insomnia [...] January 25, 2025. 84 tablet 025 2024 Discontinued Active Problems Problem Noted Date Diagnosed Date Long-term current use of opiate analgesic 2023 Overview (09/25/2024): Medication: Tylenol w/ Codeine #4 (300-60mg) Q8H PRN Indication: Rotator cuff tear (not ideal surgical candidate) Tier III (Q6 month visits) Last PLASTIC TOOL MAKER Agreement: 09/25/24 Assessment & Plan (11/29/2024 3:16 PM EDT): Timeline: - 11/17/23: PLASTIC TOOL MAKER Agreement, Utox/pill count as expected - [...] (09/25/2024 2:43 PM EDT): Timeline: - 11/17/23: PLASTIC TOOL MAKER Agreement, Utox/pill count as expected - [...] (07/24/2024 3:07 PM EST): Timeline: - 11/17/23: PLASTIC TOOL MAKER Agreement, Utox/pill count as expected - 12/13/23: NCNS to Group visit - 12/27/23: Initial Group Visit, Utox/pill count as expected - 01/31/24: Group visit, Utox/pill count as expected - 03/13/24: Group visit, Utox/pill count as expected - 05/15/24: Group visit, Utox/pill count as expected - 07/17/24: Group visit, Utox/pill count as expected Assessment & Plan (05/15/2024 6:31 PM EST): Timeline: - 11/17/23: PLASTIC TOOL MAKER Agreement, Utox/pill count as expected - [...] 07/20/2022 Overview (07/20/2022): Followed by cardiology at [facility]. Hx of reduced ejection fraction that has [...] managing pain with Tylenol #4. Compliant with PLASTIC TOOL MAKER agreement Followed by [facility] pain mnmt. Assessment & Plan (11/29/2024 3:16 [...] Healthcare maintenance 07/20/2022 Overview (04/28/2023): CRC: 2016 [facility] 10 year f/u PSA: 07/2022 0.57 HIV: Negative 2019 Hepatitis: Negative HCV 2020 Declines covid vaccine Assessment & Plan (01/13/2023 10:32 AM EDT): - Will request [facility] colonoscopy records Carpal tunnel syndrome on both sides 07/20/2022 Overview (07/20/2022): EMG 12/2021-bilateral moderate-severe ulnar and median neuropathy and bilateral anahy guber anastamosis Seen by [facility] Dr. Nixon 04/2022; surgical candidate would require cardiac clearance and improved A1c Mood disorder 07/20/2022 Overview (07/20/2022): Seroquel 50mg XR Celexa 30mg Nightly ambien Declines therapy referral Assessment & Plan (04/28/2023 1:35 PM EST): PHQ-9 elevated (24). Denies SI or thoughts of self harm Declines medication changes or referral to [facility] Contact HC if sx worsen or experiencing thoughts of SI or self harm. Pt has [facility] crisis contact information Coronary arteriosclerosis 08/05/2020 Implantable cardioverter-defibrillator (ICD) in situ 09/30/2017 Essential hypertension 07/14/2017 Overview (10/15/2022): Followed by [facility] cardiology Hydralazine 50mg b.i.d Carvediol 25mg b.i.d [...] Erectile dysfunction 12/04/2015 Overview (07/20/2022): Followed by [facility] urology and receives SQ testosterone Hypogonadism male 12/04/2015 Mixed hyperlipidemia 12/04/2015 Overview (10/15/2022): Atorvastatin 40mg daily Assessment & Plan (10/15/2022 3:42 PM EDT): Continue current regimen Old PR (myocardial infarction) 12/04/2015 Encounters * This document contains information received from the source organization and may not represent a complete record from that organization. Date Type Department Care Team Description 02/25/2025 9:00 AM EDT Office Visit [facility] [address] [place] [address] [place] STEVEN Morales Type 2 diabetes mellitus with hyperglycemia, without long-term current use of insulin ([facility]) (Primary Dx); Erythematous skin nodule; Osteoarthritis of left knee, unspecified osteoarthritis type 02/25/2025 Telephone [facility] [address] [place] [address] Carmen Mejia FNP Referral 02/25/2025 Travel 02/22/2025 Telephone [facility] [address] [place] [address] Roberto STEVEN Morales Chart Prep 02/20/2025 Refill [facility] [address] [place] [address] Carmen Mejia FNP Nontraumatic incomplete tear of rotator cuff, unspecified laterality 02/15/2025 Patient Outreach [facility] [address] [place] [address] Carmen Mejia FNP Pre-visit Planning (SDOH was already completed) 02/14/2025 Refill [facility] [address] [place] [address] [place] STEVEN Morales Primary insomnia 02/07/2025 Refill [facility] [address] [place] [address] Carmen Mejia FNP Moderate persistent asthma without complication; Diabetes mellitus type 2 with neurological manifestations ([facility]) 01/30/2025 Orders Only GENERIC EXTERNAL DATA DEPARTMENT Provider, Generic External Data 01/29/2025 10:00 AM EDT Clinical Support [facility] [address] [place] [address] Ligia Titus, EMMIE Other chronic pain 01/29/2025 Travel 01/22/2025 Refill [facility] [address] [place] [address] Carmen Mejia FNP Nontraumatic incomplete tear of rotator cuff, unspecified laterality 01/10/2025 Refill [facility] [address] [place] [address] Carmen Mejia FNP Dysphagia, unspecified type; Type 2 diabetes mellitus with other specified complication, without long-term current use of insulin ([facility]); Mood disorder ([facility]) 01/05/2025 Refill [facility] [address] [place] [address] [facility] Diabetes mellitus type 2 with neurological manifestations ([facility]) 12/26/2024 Refill [facility] [address] [place] [address] [facility] Nontraumatic incomplete tear of rotator cuff, unspecified laterality 12/13/2024 Telephone [facility] [address] [place] [address] [facility] sept recall 12/13/2024 Refill [facility] [address] [place], [place] [phone] [facility] Primary insomnia 12/13/2024 Refill [facility] [address] [place] [address] Name, MD Kolby Chronic obstructive pulmonary disease, unspecified COPD type ([facility]); Primary insomnia 12/07/2024 Orders Only GENERIC [...] Sign Reading Time Taken Comments Blood Pressure 112/68 02/25/2025 8:41 AM EDT Pulse 78 02/25/2025 8:41 AM EDT Temperature 36.4 C (97.5 F) 02/25/2025 8:41 AM EDT Respiratory Rate 20 02/25/2025 8:41 AM EDT Oxygen Saturation 97% 11/05/2024 8:56 AM EDT Inhaled Oxygen Concentration - - Weight 93 kg (205 lb) 02/25/2025 8:41 AM EDT Height 167.6 cm (5' 6 ) 02/25/2025 8:41 AM EDT Body Mass Index 33.09 02/25/2025 8:41 AM EDT Plan of Treatment Upcoming Encounters Date Type Department Care Team (Late st Contact Info) Description 04/02/2025 11:00 AM EDT Office Visit [facility] [address] [place] [address] Health Maintenance Due Date Last Done Comments CT Colonography 1965 Dental Oral Exam 1965 Dental Prophylaxis 1965 Dental X-Ray: Bitewings 1964 Dental X-Ray: Full Mouth 1965 FIT DNA/Cologuard 1965 FIT 1965 FOBT 1965 Sigmoidoscopy 1965 Alcohol/Substance Use Screening 1976 RSV Patients and Patients Aged 60 years or older (1 - Risk 60-74 years 1-dose series) 2024 Influenza Vaccine (#1) 2025 , 03/21/2023, 03/15/2022, Additional history exists Diabetes: Hemoglobin A1C 05/27/2025 025, 11/05/2024, 08/03/2024, Additional history exists Colonoscopy 06/20/2025 06/20/2015 Colorectal Cancer Screening 06/20/2025 Diabetes: Foot Exam 10/18/2025 10/18/2024, 07/20/2023, 07/20/2023, Additional history exists Eye Exam 10/22/2025 10/22/2024, 10/18, 11/01/2022, Additional history exists SDOH Screening 10/29/2025 10/29/2024 Depression Screening 11/05/2025 11/05/2024, 11/06/19 25 Disability Screening 11/05/2025 11/05/2024 Diabetes: Urine Protein Screening 11/26/2025 11/26/2024, 08/31/2023, 07/20/2023, Additional history exists Lipid Panel 11/26/2025 11/26/2024, 06/22, 06/01/2022, Additional history exists Tobacco Screening 02/25/2026 02/25/2025 DTaP/Tdap/Td Vaccines (3 - Td or Tdap) [...] Diagnosis Comments POCT GLYCATED HEMOGLOBIN, TOTAL Routine 02/25/2025 8:53 AM EDT Type 2 diabetes mellitus with hyperglycemia, without long-term current use of insulin ([facility]) POCT GLUCOSE Routine 02/25/2025 8:51 AM EDT Type 2 diabetes mellitus with hyperglycemia, without long-term current use of insulin ([facility]) TESTOSTERONE, TOTAL, MALES (ADULT), IA Routine 01/30/2025 [...] CONTRAST Routine 12/07/2024 1 2:21 PM EDT ALBUMIN, RANDOM URINE W/CREATININE Routine 11/26/2024 [...] to Health Maintenance Results * (ABNORMAL) POCT Hgb A1c (02/25/2025 8:53 AM EDT) Hemoglobin A1C 8.4(A) 4.0 - 5.7 % Blood 02/25/2025 8:53 AM EDT [facility] IDENTIFICATION AND RECORDS COMMANDER POINT OF CARE TEST ENTER/EDIT ORDERABLES Final Result * (ABNORMAL) POCT Glucose (02/25/2025 8:51 AM EDT) Pathologist [facility] Glucose Blood, POC 231(A) 60 - 200 mg/dL Blood Capillary blood specimen / Unknown 02/25/2025 8:51 AM EDT [facility] IDENTIFICATION AND RECORDS COMMANDER POINT OF CARE TEST ENTER/EDIT ORDERABLES Final Result * (ABNORMAL) CBC (01/30/2025 10:22 AM EDT) [facility] White Blood Count 10.9(H) 4.8 - 10.8 X10*3/uL [facility] Red Blood Count 6.61(H) 4.60 - 5.80 X10*6/uL [facility] Hemoglobin 14.9 14.0 - 18.0 g/dl [facility] Hematocrit 49.7 42.0 - 52.0 % [facility] Mean Corpuscular Volume 75.2(L) 80.0 - 98.0 fL [facility] Mean Corpuscular Hemoglobin 22.5(L) 27.0 - 33.0 pg [facility] Mean Corpuscular HGB Conc 30.0(L) 31.0 - 36.0 g/dl [facility] Red Cell Distribution Width 20.6(H) 11.0 - 16.0 % [facility] Platelet Count 278 160 - 400 X10*3/uL [facility] Mean Platelet Volume 10.9 9.4 - 12.4 fL [facility] NRBC Pct Auto 0.0 0.0 - 0.2 /100WBC [facility] NRBC Abs Auto 0.000 0.0 - 0.012 X10*3/uL [facility] 01/30/2025 10:2 2 AM EDT 01/30/2025 10:22 AM EDT Generic External Data Provider LAB BLOOD ORDERAB LES Final Result [facility] [address] [place] [phone] * Testosterone, Total, males (Adult), IA (01/30/2025 10:22 AM EDT) Testosterone, Total 487 250 - 1100 ng/dL [facility] Comment:For additional infor frances, please refer tohttp://education.YouScan/faq/[email or web address](This link is being provided for informational/educational purposes only.)This test was developed and its analytical performancecharacteristics have been determined by [employer] [place], [place]. It hasnot been cleared or approved by the U.S. Food and DrugAdministration. This assay has been validated pursuantto the CLIA regulations and is used for clinicalpurposes.THIS TEST WAS PERFORMED AT:[employer] [place] [address]ATVTHBJMEGHAN MARION MD,PHD 01/30/2025 10:2 2 AM EDT 01/30/2025 10:22 AM EDT us Generic External Data Provider LAB BLOOD ORDERAB LES Final Result Performing Organization Address City/[facility]/ZIP Co de Phone Number [facility] [address] [place] [phone] * PSA,Total (01/30/2025 10:22 AM EDT) Prostate Specific Antigen 0.37 <0.05 - 4.0 ng/mL [facility] Comment:PSA methodology: Abb sandhya Alivalerianoty i ChemiluminescentMicroparticle Immunoassay (CMIA) 01/30/2025 10:2 2 AM EDT 01/30/2025 10:22 AM EDT us Generic External Data Provider LAB BLOOD ORDERAB LES Final Result Performing Organization Address [facility]/ZIP Co de Phone Number [facility] [address] [place] [phone] * (ABNORMAL) POCT KINA-14 Urine Drug Screen (01/29/2025 11:31 AM EDT) THC Negative Negative Cocaine Screen, Urine Negative [...] - 01/29/2025 11:31 AM EDT .UTOX cup Lot#[id number] Exp. 03/26/26 Internal Pass Control Melani Haider IDENTIFICATION AND RECORDS COMMANDER POINT OF CARE TEST ENTER/EDIT ORDERABLES Final Result * CTA Head Neck w/ and w/o Contrast (12/07/2024 3:28 PM EDT) Anatomical Region Laterality Modality Head, Neck Computed Tomogra phy 12/07/2024 3:28 PM EDT Narrative 12/07/2024 4:23 PM EDT [place] [address] CT Scan Report Signed Patient: Andry Lehman MR#: [id number] : 1965 Acct:[id number] Age/Sex: 59 / M ADM Date: 12/07/24 Loc: .ED Attending Dr: Ordering Physician: Hernan Beverly MD Date of Service: 12/07/24 Procedure(s): CT angio head neck Accession Number(s): [id number] cc: Hernan Beverly MD; [facility] Report Number: [id number]: Total DLP = 723.00 mGy-cm EXAMINATION: CT [...] vertex. The data was processed at the eeg technologist's workstation for generation of MIP sequences. [...] P1 segment. Normal opacification of the distal PIPING DESIGN SPECIALIST segments. -LEFT POSTERIOR CEREBRAL ARTERY: origin. Normal opacification of the distal PIPING DESIGN SPECIALIST segments. -POSTERIOR COMMUNICATING ARTERIES: The right is [...] 12/07/24 1620 DD/ 1528 TD/TT: 12/07/24 1548 Sound Designer: Procedure Note Donotuseinterpreter, Image - 12/07/[address] [address] [address] Scan Report Signed Patient: Andry LehmanMR#: [id number] : 1965Acct:[id number] Age/Sex: 59 / MADM Date: 12/07/24 Loc: HO.ED Attending Dr: Ordering Physician: Hernan Beverly MD Date of Service: 12/07/24 Procedure(s): CT angio head neck Accession Number(s): [id number] cc: Hernan Beverly MD; [facility] Report Number: [id number]: Total DLP = 723.00 mGy-cm EXAMINATION: CT [...] vertex. The data was processed at the eeg technologist's workstation for generation of MIP sequences. [...] P1 segment. Normal opacification of the distal PIPING DESIGN SPECIALIST segments. -LEFT POSTERIOR CEREBRAL ARTERY: origin. Normal opacification of the distal PIPING DESIGN SPECIALIST segments. -POSTERIOR COMMUNICATING ARTERIES: The right is [...] 12/07/24 1620 DD/ 1528 TD/TT: 12/07/24 1548 Sound Designer: [facility] External Provider IMG CT PROCEDURES Final Result * (ABNORMAL) Urinalysis, Complete, with Reflex to Culture (12/07/2024 1:40 PM EDT) Color Urine Yellow [facility] Appearance Urine Clear [facility] PH 6.5 5.0 - 9.0 [facility] Glucose Urine UA >=1000(A) Negative mg/dL [facility] Urine Blood Negative Negative [facility] Specific [place] - Urine 1.025 1.005 - 1.025 [facility] Urine Protein Negative Neg-Trace mg/dL [facility] Urine Ketones Negative Negative mg/dL [facility] Nitrite Urine Negative Negative [facility] Leukocyte Esterase Urine Negative Negative [facility] RBC Urine 0-2 0 - 2 /HPF [facility] Urine WBC 0-5 0 - 5 /HPF [facility] Urine Squamous Epithelial Cell 0-2 0 - 2 /HPF [facility] Urine Bacteria None Seen None Seen [facility] Hyaline Casts, Urine 0-2 0 - 2 /LPF [facility] 12/07/2024 1:40 PM EDT 12/07/2024 1:43 PM EDT Narrative [facility] - 12/07/2024 1:53 PM EDT Urine, Clean Catch Generic External Data Provider LAB URINE ORDERAB LES Final Result [facility] [address] [place] [address] [phone] * CT Head w/o Contrast (12/07/2024 12:21 PM EDT) Anatomical Region Laterality Modality Head, Neck Computed Tomogra phy 12/07/2024 12:2 1 PM EDT Narrative 12/07/2024 1:48 PM EDT [address] [address] [address] Scan Report Signed Patient: Andry Lehman MR#: [id number] : 1965 Acct:[id number] Age/Sex: 59 / M ADM Date: 12/07/24 Loc: HO.ED Attending Dr: Ordering Physician: Eliane Markham Date of Service: 12/07/24 Procedure(s): CT head/brain wo IV con Accession Number(s): [id number] cc: Eliane Markham; [facility] Report Number: [id number]: Total DLP = 694.00 mGy-cm EXAMINATION: CT [...] Jorge Simon MD 12/07/2024 01:45 PM EDT RP Dictated By: Jorge Peterson MD Signed By: <Electronically signed by Jorge Israel MD in OV> 12/07/24 1345 DD/ 1221 TD/TT: 12/07/24 1338 Sound Designer: Procedure Note Donotuseinterpreter, Image - 12/07/[address] [address] [address] Scan Report Signed Patient: Andry LehmanMR#: [id number] : 1965Acct:[id number] Age/Sex: 59 / MADM Date: 12/07/24 Loc: HO.ED Attending Dr: Ordering Physician: Eliane Markham Date of Service: 12/07/24 Procedure(s): CT head/brain wo IV con Accession Number(s): [id number] cc: Eliane Markham; [facility] Report Number: [id number]: Total DLP = 694.00 mGy-cm EXAMINATION: CT [...] Jorge Simon MD 12/07/2024 01:45 PM EDT RP Dictated By: Jorge Peterson MD Signed By: <Electronically signed by Jorge Israel MDin OV> 12/07/24 1345 DD/ 1221 TD/TT: 12/07/24 1338 Sound Designer: [facility] External Provider IMG CT PROCEDURES Final Result * (ABNORMAL) Albumin, Random Urine W/Creatinine (11/26/2024 10:47 AM EDT) Creatinine, Urine 43.29 mg/dL [facility] Microalbumin Urine 53.0 mg/L [facility] Microalbum Creatinine Ratio Ur 122.4(H) <30 ug/mg cr [facility] Comment:Albumin/Creatinine R atio Reference Ranges: Normal: < 30 ug/mg creatinine Microalbuminuria: 30 - 300 ug/mg creatinineClinical Albuminuria: > 300 ug/mg creatinine Urine 11/26/2024 10:4 7 AM EDT 11/26/2024 1:02 PM EDT [facility] IDENTIFICATION AND RECORDS COMMANDER LAB URINE ORDERABLES Final Re sult [facility] [address] [place] [phone] * Lipid Panel, Standard (11/26/2024 10:47 AM EDT) Triglycerides 125 <150 mg/dL [facility] Comment:Desirable Triglyceri de: less than 150 mg/dLBorderline High Triglyceride 150-199 mg/dLHigh Triglyceride: 200-499 mg/dLVery High Triglyceride: greater than or equal to 5OO mg/dL Cholesterol 127 <200 mg/dL [facility] Comment:Desirable Cholestero l: less than 200 mg/dLBorderline High Cholesterol: 200-239 mg/dLHigh Cholesterol: greater than 239 mg/dL LDL Cholesterol Calculated 59 <100 mg/dL [facility] Comment:Desirable LDL: less than 100 mg/dLNear Optimal/Above Optimal LDL: 110- 129 mg/dLBorderline High LDL: 130-159 mg/dLHigh LDL: 160-189 mg/dLVery High LDL: greater than or equal to 190 mg/dL HDL Cholesterol 43 >40 mg/dL [facility] Comment:Desirable HDL: great er than 40 mg/dL Note: This HDL assay may give artificially low results in patients with liver disease. Blood Venous blood specimen / Unknown 11/26/2024 10:47 AM EDT 11/26/2024 1:17 PM EDT [facility] IDENTIFICATION AND RECORDS COMMANDER LAB BLOOD ORDERABLES Final Re sult Performing Organization Address [facility]/ZIP Co de Phone Number [facility] [address] [place] [phone] * HEPATITIS C AB W/REFL TO HCV RNA, QN, PCR (02/27/2020 9:28 AM EDT) HEPATITIS C ANTIBODY NON-REACT [facility] NON-REACT [facility] INDEX 0.02 <1.00 [facility] Comment: HCV antibody was non-reactive. There is no laboratory evidence of HCV infection. In most cases, no further action is required. However, if recent HCV exposure is suspected, a test for HCV RNA (test code 71170) is suggested. For additional information please refer to http://education.Ziptronix.Yidio/faq/JVO85n0 (This link is being provided for informational/ educational purposes only.) 02/27/2020 9:28 AM EDT Marcos Robles IDENTIFICATION AND RECORDS COMMANDER HISTORICAL/NON ORDERABLE LA BS Final Result Performing Organization Address City/[facility]/ZIP Co de Phone Number [facility] [address] [place] [address], [place] * HIV 1/2 ANTIGEN/ANTIBODY,FOURTH GENERATION W/RFL (02/27/2020 [...] purpose. For additional information please refer to http://education.YouScan/faq/MOD180 (This link is being provided for informational/ educational purposes only.) The performance of this assay has not been clinically validated in patients less than 2 years old. 02/27/2020 9:28 AM EDT Marcos Robles IDENTIFICATION AND RECORDS COMMANDER LAB BLOOD ORDERABLES Final Result Performing Organization Address City/State/[facility] Co de Phone Number [facility] [address] * (ABNORMAL) Colonoscopy (06/20/2015) Colonoscopy Abnormal( A) Normal Comment:polyps-5 year follow up Historical Provider MD HEALTH MAINTENANCE Final Result from Last 3 Months or Most Recently Relevant to Health Maintenance Insurance [facility] ONE CARE < 65 [facility] Care Teams Crm Marketing Manager Relationship Specialty Start Date End Date Carmen Mejia FNP [address] [place] [phone] PCP - General Family Medicine 03/18/21
== END 2025-03-06 09:06 | disposition home or self-care (01) ==
LOC: HO.HGI 08:27
PROVIDERS: PCP Registered Nurse; Visit Provider Nurse Practitioner Family
DX: K21.9 Gastro-esophageal reflux disease without esophagitis (principal); R13.14 Dysphagia, pharyngoesophageal phase; A04.8 Other specified bacterial intestinal infections; R10.13 Epigastric pain
CPT/HCPCS: 99214; G2211

== ENCOUNTER → 2025-03-06 08:26 | Outpatient (BNVA) | payer OTHER, SELFPAY | PROVIDERS: PCP Registered Nurse; Visit Provider Nurse Practitioner Family | DX: R13.14 Dysphagia, pharyngoesophageal phase (principal); K21.9 Gastro-esophageal reflux disease without esophagitis; R10.13 Epigastric pain; A04.8 Other specified bacterial intestinal infections | CPT/HCPCS: 99212 ==

== ENCOUNTER 2025-03-07 10:44 | Outpatient (REF) | payer OTHER, SELFPAY ==
--- OUTSIDE RECORDS SUMMARY | 2025-03-07 12:52 | XMS_ITS | Encounter Summary ---
Author Organization [employer] Address [address] [facility] 7t [place] [address] Care Team Providers Care Utility System Operator Name Role Phone Carmen Mejia SOCIAL SECURITY SPECIALIST Primary Care Provider [phone] Reason for Visit * Reason Onset Date Comments denture appt PA 11/02/2022 Encounter Details Date Type Department Care Team (Late st Contact Info) Description 11/02/2022 Telephone [facility] [address] [place] [address] Bal Aponte, DMD [address] [place] [address] denture appt PA Social History Tobacco Use [...] Description 04/02/2025 11:00 AM EDT Office Visit [facility] [address] [place] [address] documented as of this encounter Visit Diagnoses Not on filedocumented in this encounter Additional Health Concerns Assessment Noted Time PHQ-9 Depression Total Score: 0 10/15/19 23 8:58 AM EDT documented as of this encounter Care Teams Utility System Operator Relationship Specialty Start Date End Date Carmen Mejia FNP [address] [place] [address] PCP - General Family Medicine 03/18/21 documented as of this encounter
--- OUTSIDE RECORDS SUMMARY | 2025-03-07 12:52 | XMS_ITS | Encounter Summary ---
Author Organization [employer] Address [address] [facility] 7t [place] [address] Care Team Providers Care Grease Renderer Name Role Phone Carmen Mejia [facility] Primary Care Provider Reason for Visit * Reason Comments Med Refill Encounter Details Date Type Department Care Team (Late st Contact Info) Description 11/18/2022 Refill [facility] [address] [place], [place] [phone] [facility] [address] [place], [place] [phone] Primary insomnia; Type 2 diabetes mellitus with other specified complication, without long-term current use of insulin ([facility]) Social History Tobacco Use Types [...] Description 04/02/2025 11:00 AM EDT Office Visit [facility] [address] [place] [address] [phone] documented as of this encounter Visit Diagnoses Diagnosis Primary insomnia Persistent disorder of initiating or maintaining sleep Type 2 diabetes mellitus with other specified complication, without long-term current use of insulin (CMS/[facility]) documented in this encounter Additional Health Concerns Assessment Noted Time PHQ-9 Depression Total Score: 0 10/15/19 23 8:58 AM EDT documented as of this encounter Care Teams Grease Renderer Relationship Specialty Start Date End Date Carmen Mejia FNP [address] [place] [phone] PCP - General Family Medicine 03/18/21 documented as of this encounter
--- OUTSIDE RECORDS SUMMARY | 2025-03-07 12:52 | XMS_ITS | Encounter Summary ---
Author Organization [employer] Address [address] [facility] 7t [place] [address] Care Team Providers Care Signal Apprentice Name Role Phone Roberto [facility] Primary Care Provider [phone] Reason for Visit * Reason Comments Med Refill Encounter Details Date Type Department Care Team (Late st Contact Info) Description 01/05/2025 Refill [facility] [address] [place], [place] [phone] [facility] [address] [place] [address] Diabetes mellitus type 2 with neurological manifestations [...] Description 04/02/2025 11:00 AM EDT Office Visit [facility] [address] [place] [address] documented as of this encounter Visit Diagnoses Diagnosis 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) documented in this encounter Additional Health Concerns Assessment Noted Time PHQ-9 Depression Total Score: 0 11/06/19 25 8:57 AM EDT documented as of this encounter Care Teams Signal Apprentice Relationship Specialty Start Date End Date Carmen Mejia FNP [address] [place] [address] PCP - General Family Medicine 03/18/21 documented as of this encounter
--- OUTSIDE RECORDS SUMMARY | 2025-03-07 12:52 | XMS_ITS | Encounter Summary ---
Author Organization [employer] Address [address] [facility] 7t [place] [address] Care Team Providers Care Supervisor Fish Processing Name Role Phone Carmen Mejia [facility] Primary Care Provider [phone] Encounter Details Date Type Department Care Team (Late Contact Info) Description 03/07/2023 Orders Only [facility] [address] [place] [address] Shannon Sargent LPN Social History Tobacco Use [...] [facility] [address] [place] [address] documented as of this encounter Visit Diagnoses Not on filedocumented in this encounter Additional Health Concerns Assessment Noted Time PHQ-9 Depression Total Score: 0 01/14/20 23 9:12 AM EDT documented as of this encounter Care Teams Supervisor Fish Processing Relationship Specialty Start Date End Date Carmen Mejia FNP [address] [place] [address] PCP - General Family Medicine 03/18/21 documented as of this encounter
--- OUTSIDE RECORDS SUMMARY | 2025-03-07 12:52 | XMS_ITS | Encounter Summary ---
Author Organization [employer] Address [address] [facility] [address] [place] [address] Care Team Providers Care Electric Power Line Examiner Name Role Phone Roberto, Carmen [facility] Primary Care Provider [phone] Encounter Details Date Type Department Care Team (Late Contact Info) Description 10/15/2022 Orders Only [facility] [address] [place], [place] [phone] Ritika Mcgovern LPN Social History Tobacco Use [...] Office Visit [facility] [address] [place] [address] documented as of this encounter Visit Diagnoses Not on filedocumented in this encounter Additional Health Concerns Assessment Noted Time PHQ-9 Depression Total Score: 0 10/15/19 23 8:58 AM EDT documented as of this encounter Care Teams Electric Power Line Examiner Relationship Specialty Start Date End Date Carmen Mejia FNP [address] [place] [address] PCP - General Family Medicine 03/18/21 documented as of this encounter
--- OUTSIDE RECORDS SUMMARY | 2025-03-07 12:52 | XMS_ITS | Encounter Summary ---
Author Organization [employer] Address [address] [facility] [address] [place] [address] Care Team Providers Care Shot Blaster Name Role Phone Carmen Mejia [facility] Primary Care Provider [phone] Reason for Visit * Reason Comments Med Refill Encounter Details Date Type Department Care Team (Late st Contact Info) Description 11/16/2022 Refill [facility] MED[facility]INE [address] [place], [place] [phone] Melani Haider FNP [address] [place], [place] [phone] Other chronic pain Social History Tobacco Use [...] Description 04/02/2025 11:00 AM EDT Office Visit [facility] [address] [place], [place] [phone] documented as of this encounter Visit Diagnoses Diagnosis Other chronic pain documented in this encounter Additional Health Concerns Assessment Noted Time PHQ-9 Depression Total Score: 0 10/15/19 23 8:58 AM EDT documented as of this encounter Care Teams Shot Blaster Relationship Specialty Start Date End Date PortageCarmen FNP [address] [place] [address] PCP - General Family Medicine 03/18/21 documented as of this encounter
--- OUTSIDE RECORDS SUMMARY | 2025-03-07 12:52 | XMS_ITS | Clinical Summary ---
Author Organization [employer] Address [address] [facility] [address] [place] [address] Care Team Providers Care Manager Labor Delivery Name Role Phone [facility] Primary Care Provider [phone] Allergies Active Allergy Reactions Criticality Noted Date [...] 1 TABLET BY MOUTH EVERY MORNING (CALL [phone] FOR APPOINTMENT (Dr. Pillai)) 023 Active carvedilol (Coreg) 25 MG tablet TAKE 1 TABLET BY MOUTH TWICE DAILY IN THE MORNING AND IN THE EVENING WITH FOOD 023 Active atorvastatin (Lipitor) 40 MG tablet Take 40 mg by mouth at bedtime. 023 Active Aspirin Low Dose 81 MG EC tablet TAKE 1 TABLET BY MOUTH EVERY MORNING (CALL [phone] FOR APPOINTMENT (Dr. Pillai )) 023 Active [...] s:Chronic obstructive pulmonary disease, unspecified COPD type ([facility]) INHALE 2 PUFFS BY MOUTH TWICE DAILY IN THE MORNING AND IN THE EVENING RINSE MOUTH AFTER USING. 10.2 g Active omeprazole (PriLOSEC) [address] capsuleIndication s:Dysphagia, unspecified type TAKE 1 CAPSULE BY MOUTH TWICE DAILY 60 capsule 025 Active QUEtiapine (SEROquel) 50 MG tabletIndications :Type 2 diabetes mellitus with other specified complication, without long-term current use of insulin ([facility]) TAKE 2 TABLETS BY MOUTH EVERY DAY AT BEDTIME 60 tablet 025 Active Jardiance 25 MGIndications:Typ e 2 diabetes mellitus with other specified complication, without long-term current use of insulin ([facility]) TAKE 1 TABLET BY MOUTH EVERY MORNING 30 tablet Active citalopram (CeleXA) 20 MG tabletIndications :Mood disorder ([facility]) TAKE 1 TABLET BY MOUTH EVERY MORNING 30 tablet 025 Active citalopram (CeleXA) 10 MG tabletIndications :Mood disorder ([facility]) TAKE 1 TABLET BY MOUTH EVERY MORNING 30 tablet 025 Active cetirizine (ZyrTEC) 10 MG tabletIndications :Moderate persistent asthma without complication TAKE 1 TABLET BY MOUTH EVERY MORNING 30 tablet 025 Active Multiple Vitamin (Multivitamin) tabletIndications :Diabetes mellitus type 2 with neurological manifestations ([facility]) TAKE 1 TABLET BY MOUTH EVERY [...] candidate) Tier III (Q6 month visits) Last FISH CONSERVATIONIST Agreement: 09/25/24 Assessment & Plan (11/29/2024 3:16 PM EDT): Timeline: - 11/17/23: FISH CONSERVATIONIST Agreement, Utox/pill count as expected - 12/13/23: [...] (09/25/2024 2:43 PM EDT): Timeline: - 11/17/23: FISH CONSERVATIONIST Agreement, Utox/pill count as expected - 12/13/23: [...] (07/24/2024 3:07 PM EST): Timeline: - 11/17/23: FISH CONSERVATIONIST Agreement, Utox/pill count as expected - 12/13/23: NCNS to Group visit - 12/27/23: Initial Group Visit, Utox/pill count as expected - 01/31/24: Group visit, Utox/pill count as expected - 03/13/24: Group visit, Utox/pill count as expected - 05/15/24: Group visit, Utox/pill count as expected - 07/17/24: Group visit, Utox/pill count as expected Assessment & Plan (05/15/2024 6:31 PM EST): Timeline: - 11/17/23: FISH CONSERVATIONIST Agreement, Utox/pill count as expected - 12/13/23: [...] 07/20/2022 Overview (07/20/2022): Followed by cardiology at [facility]. Hx of reduced ejection fraction that has [...] managing pain with Tylenol #4. Compliant with FISH CONSERVATIONIST agreement Followed by [facility] pain mnmt. Assessment & Plan (11/29/2024 3:16 [...] 07/20/2022 Overview (04/28/2023): CRC: 2016 [facility] 10 year f/u PSA: 07/2022 0.57 HIV: Negative 2019 Hepatitis: Negative HCV 2020 Declines covid vaccine Assessment & Plan (01/13/2023 10:32 AM EDT): - Will request [facility] colonoscopy records Carpal tunnel syndrome on both sides 07/20/2022 Overview (07/20/2022): EMG 12/2021-bilateral moderate-severe ulnar and median neuropathy and bilateral anahy guber anastamosis Seen by [facility] Dr. Nixon 04/2022; surgical candidate would require cardiac clearance and improved A1c Mood disorder 07/20/2022 Overview (07/20/2022): Seroquel 50mg XR Celexa 30mg Nightly ambien Declines therapy referral Assessment & Plan (04/28/2023 1:35 PM EST): PHQ-9 elevated (24). Denies SI or thoughts of self harm Declines medication changes or referral to [facility] Contact HC if sx worsen or experiencing thoughts of SI or self harm. Pt has [facility] crisis contact information Coronary arteriosclerosis 08/05/2020 Implantable cardioverter-defibrillator (ICD) in situ 09/30/2017 Essential hypertension 07/14/2017 Overview (10/15/2022): Followed by [facility] cardiology Hydralazine 50mg b.i.d Carvediol 25mg b.i.d [...] Erectile dysfunction 12/04/2015 Overview (07/20/2022): Followed by [facility] urology and receives SQ testosterone Hypogonadism male 12/04/2015 Mixed hyperlipidemia 12/04/2015 Overview (10/15/2022): Atorvastatin 40mg daily Assessment & Plan (10/15/2022 3:42 PM EDT): Continue current regimen Old [place] (myocardial infarction) 12/04/2015 Encounters * This document contains information received from the source organization and may not represent a complete record from that organization. Date Type Department Care Team Description 02/25/2025 9:00 AM EDT Office Visit [facility] [address] [facility] [address] Roslyn STEVEN Morales Type 2 diabetes mellitus with hyperglycemia, without long-term current use of insulin ([facility]) (Primary Dx); Erythematous skin nodule; Osteoarthritis of left knee, unspecified osteoarthritis type 02/25/2025 Telephone [facility] [address] [place] [address] Carmen Mejia FNP Referral 02/25/2025 Travel 02/22/2025 Telephone [facility] [address] [facility] [address] Roberto STEVEN Morales Chart Prep 02/20/2025 Refill [facility] [address] [place] [address] Carmen Mejia FNP Nontraumatic incomplete tear of rotator cuff, unspecified laterality 02/15/2025 Patient Outreach [facility] [address] [place] [address] Carmen Mejia FNP Pre-visit Planning (SDOH was already completed) 02/14/2025 Refill [facility] [address] [facility] [address] Roslyn STEVEN Morales Primary insomnia 02/07/2025 Refill [facility] [address] [place] [address] Carmen Mejia FNP Moderate persistent asthma without complication; Diabetes mellitus type 2 with neurological manifestations ([facility]) 01/30/2025 Orders Only GENERIC EXTERNAL DATA DEPARTMENT Provider, Generic External Data 01/29/2025 10:00 AM EDT Clinical Support [facility] [address] [place] [address] Ligia Titus, EMMIE Other chronic pain 01/29/2025 Travel 01/22/2025 Refill [facility] [address] [place] [address] Carmen Mejia FNP Nontraumatic incomplete tear of rotator cuff, unspecified laterality 01/10/2025 Refill [facility] [address] [place] [address] Carmen Mejia FNP Dysphagia, unspecified type; Type 2 diabetes mellitus with other specified complication, without long-term current use of insulin ([facility]); Mood disorder ([facility]) 01/05/2025 Refill [facility] [address] [place] [address] [facility] Diabetes mellitus type 2 with neurological manifestations ([facility]) 12/26/2024 Refill [facility] [address] [place] [address] [facility] Nontraumatic incomplete tear of rotator cuff, unspecified laterality 12/13/2024 Telephone [facility] [address] [place] [address] [facility] sept recall 12/13/2024 Refill [facility] [address] [place], [place] [phone] [facility] Primary insomnia 12/13/2024 Refill [facility] [address] [place] [address] Name, MD Kolby Chronic obstructive pulmonary disease, unspecified COPD type ([facility]); Primary insomnia 12/07/2024 Orders Only GENERIC [...] Description 04/02/2025 11:00 AM EDT Office Visit [facility] [address] [place] [address] Health Maintenance Due Date Last Done Comments [...] hyperglycemia, without long-term current use of insulin ([facility]) POCT GLUCOSE Routine 02/25/2025 8:51 AM EDT Type 2 diabetes mellitus with hyperglycemia, without long-term current use of insulin ([facility]) TESTOSTERONE, TOTAL, MALES (ADULT), IA Routine [...] 5.7 % Blood 02/25/2025 8:53 AM EDT [facility] PARLIAMENTARY COUNSEL POINT OF CARE TEST ENTER/EDIT ORDERABLES Final Result * (ABNORMAL) POCT Glucose (02/25/2025 8:51 AM EDT) Pathologist [facility] Glucose Blood, POC 231(A) 60 - 200 mg/dL Blood Capillary blood specimen / Unknown 02/25/2025 8:51 AM EDT [facility] PARLIAMENTARY COUNSEL POINT OF CARE TEST ENTER/EDIT ORDERABLES Final Result * (ABNORMAL) CBC (01/30/2025 10:22 AM EDT) [facility] White Blood Count 10.9(H) 4.8 - 10.8 X10*3/uL [facility] Red Blood Count 6.61(H) 4.60 - 5.80 X10*6/uL [facility] Hemoglobin 14.9 14.0 - 18.0 g/dl [facility] Hematocrit 49.7 42.0 - 52.0 % [facility] Mean Corpuscular Volume 75.2(L) 80.0 - 98.0 fL [facility] Mean Corpuscular Hemoglobin 22.5(L) 27.0 - 33.0 pg [facility] Mean Corpuscular HGB Conc 30.0(L) 31.0 - 36.0 g/dl [facility] Red Cell Distribution Width 20.6(H) 11.0 - 16.0 % [facility] Platelet Count 278 160 - 400 X10*3/uL [facility] Mean Platelet Volume 10.9 9.4 - 12.4 fL [facility] NRBC Pct Auto 0.0 0.0 - 0.2 /100WBC [facility] NRBC Abs Auto 0.000 0.0 - 0.012 X10*3/uL [facility] 01/30/2025 10:2 2 AM EDT 01/30/2025 10:22 AM EDT Generic External Data Provider LAB BLOOD ORDERAB LES Final Result [facility] [address] [place] [phone] * Testosterone, Total, males (Adult), IA (01/30/2025 10:22 AM EDT) Testosterone, Total 487 250 - 1100 ng/dL [facility] Comment:For additional infor frances, please refer tohttp://education.[employer]/faq/IbujoDviswpttgvsaHYFBVZSKB084(This link is being provided for informational/educational purposes only.)This test was developed and its analytical performancecharacteristics have been determined by [employer] [place], [place]. It hasnot been cleared or approved by the U.S. Food and DrugAdministration. This assay has been validated pursuantto the CLIA regulations and is used for clinicalpurposes.THIS TEST WAS PERFORMED AT:[id number] [place] [address]RTVVXIAMEGHAN MARION MD,PHD 01/30/2025 10:2 2 AM EDT 01/30/2025 10:22 AM EDT us Generic External Data Provider LAB BLOOD ORDERAB LES Final Result Performing Organization Address City/[facility]/ZIP Co de Phone Number [facility] [address] [place] [phone] * PSA,Total (01/30/2025 10:22 AM EDT) Prostate Specific Antigen 0.37 <0.05 - 4.0 ng/mL [facility] Comment:PSA methodology: Abb sandhya Alivalerianoty i ChemiluminescentMicroparticle Immunoassay (CMIA) 01/30/2025 10:2 2 AM EDT 01/30/2025 10:22 AM EDT us Generic External Data Provider LAB BLOOD ORDERAB LES Final Result Performing Organization Address [facility]/ZIP Co de Phone Number [facility] [address] [place] [phone] * (ABNORMAL) POCT KINA-14 Urine Drug [...] - 01/29/2025 11:31 AM EDT .UTOX cup Lot#[id number] Exp. 03/26/26 Internal Pass Control Melani Haider PARLIAMENTARY COUNSEL POINT OF CARE TEST ENTER/EDIT ORDERABLES Final Result * CTA Head Neck w/ and w/o Contrast (12/07/2024 3:28 PM EDT) Anatomical Region Laterality Modality Head, Neck Computed Tomogra phy 12/07/2024 3:28 PM EDT Narrative 12/07/2024 4:23 PM EDT [place] [address] CT Scan Report Signed Patient: Andry Lehman MR#: [id number] : 1965 Acct:[id number] Age/Sex: 59 / M ADM Date: 12/07/24 Loc: .ED Attending Dr: Ordering Physician: Hernan Beverly MD Date of Service: 12/07/24 Procedure(s): CT angio head neck Accession Number(s): [id number] cc: Hernan Beverly MD; [facility] Report Number: [id number]: Total DLP = 723.00 mGy-cm EXAMINATION: CT [...] vertex. The data was processed at the isotope technologist's workstation for generation of MIP sequences. [...] P1 segment. Normal opacification of the distal EMERGENCY DEPARTMENT PHYSICIAN segments. -LEFT POSTERIOR CEREBRAL ARTERY: origin. Normal opacification of the distal EMERGENCY DEPARTMENT PHYSICIAN segments. -POSTERIOR COMMUNICATING ARTERIES: The right is [...] 12/07/24 1620 DD/ 1528 TD/TT: 12/07/24 1548 Bingo Worker: Procedure Note Donotuseinterpreter, Image - 12/07/[address] [address] [address] Scan Report Signed Patient: Andry LehmanMR#: [id number] : 1965Acct:[id number] Age/Sex: 59 / MADM Date: 12/07/24 Loc: HO.ED Attending Dr: Ordering Physician: Hernan Beverly MD Date of Service: 12/07/24 Procedure(s): CT angio head neck Accession Number(s): [id number] cc: Hernan Beverly MD; [facility] Report Number: [id number]: Total DLP = 723.00 mGy-cm EXAMINATION: CT [...] vertex. The data was processed at the isotope technologist's workstation for generation of MIP sequences. [...] P1 segment. Normal opacification of the distal EMERGENCY DEPARTMENT PHYSICIAN segments. -LEFT POSTERIOR CEREBRAL ARTERY: origin. Normal opacification of the distal EMERGENCY DEPARTMENT PHYSICIAN segments. -POSTERIOR COMMUNICATING ARTERIES: The right is [...] 12/07/24 1620 DD/ 1528 TD/TT: 12/07/24 1548 Bingo Worker: [facility] External Provider IMG CT PROCEDURES Final Result * (ABNORMAL) Urinalysis, Complete, with Reflex to Culture (12/07/2024 1:40 PM EDT) Color Urine Yellow [facility] Appearance Urine Clear [facility] PH 6.5 5.0 - 9.0 [facility] Glucose Urine UA >=1000(A) Negative mg/dL [facility] Urine Blood Negative Negative [facility] Specific Bruce - Urine 1.025 1.005 - 1.025 [facility] Urine Protein Negative Neg-Trace mg/dL [facility] Urine Ketones Negative Negative mg/dL [facility] Nitrite Urine Negative Negative [facility] Leukocyte Esterase Urine Negative Negative [facility] RBC Urine 0-2 0 - 2 /HPF [facility] Urine WBC 0-5 0 - 5 /HPF [facility] Urine Squamous Epithelial Cell 0-2 0 - 2 /HPF [facility] Urine Bacteria None Seen None Seen [facility] Hyaline Casts, Urine 0-2 0 - 2 /LPF [facility] 12/07/2024 1:40 PM EDT 12/07/2024 1:43 PM EDT Narrative [facility] - 12/07/2024 1:53 PM EDT Urine, Clean Catch Generic External Data Provider LAB URINE ORDERAB LES Final Result [facility] [address] [place] [address] [phone] * CT Head w/o Contrast (12/07/2024 12:21 PM EDT) Anatomical Region Laterality Modality Head, Neck Computed Tomogra phy 12/07/2024 12:2 1 PM EDT Narrative 12/07/2024 1:48 PM EDT [address] [address] [address] Scan Report Signed Patient: Andry Lehman MR#: [id number] : 1965 Acct:[id number] Age/Sex: 59 / M ADM Date: 12/07/24 Loc: HO.ED Attending Dr: Ordering Physician: Eliane Markham Date of Service: 12/07/24 Procedure(s): CT head/brain wo IV con Accession Number(s): [id number] cc: Eliane Markham; [facility] Report Number: [id number]: Total DLP = 694.00 mGy-cm EXAMINATION: CT [...] 12/07/24 1345 DD/ 1221 TD/TT: 12/07/24 1338 Bingo Worker: Procedure Note Donotuseinterpreter, Image - 12/07/[address] [address] [address] Scan Report Signed Patient: Andry LehmanMR#: [id number] : 1965Acct:[id number] Age/Sex: 59 / MADM Date: 12/07/24 Loc: HO.ED Attending Dr: Ordering Physician: Eliane Markham Date of Service: 12/07/24 Procedure(s): CT head/brain wo IV con Accession Number(s): [id number] cc: Eliane Markham; [facility] Report Number: [id number]: Total DLP = 694.00 mGy-cm EXAMINATION: CT [...] 12/07/24 1345 DD/ 1221 TD/TT: 12/07/24 1338 Bingo Worker: [facility] External Provider IMG CT PROCEDURES Final Result * (ABNORMAL) Albumin, Random Urine W/Creatinine (11/26/2024 10:47 AM EDT) Creatinine, Urine 43.29 mg/dL [facility] Microalbumin Urine 53.0 mg/L [facility] Microalbum Creatinine Ratio Ur 122.4(H) <30 ug/mg cr [facility] Comment:Albumin/Creatinine R atio Reference Ranges: Normal: < 30 ug/mg creatinine Microalbuminuria: 30 - 300 ug/mg creatinineClinical Albuminuria: > 300 ug/mg creatinine Urine 11/26/2024 10:4 7 AM EDT 11/26/2024 1:02 PM EDT [facility] PARLIAMENTARY COUNSEL LAB URINE ORDERABLES Final Re sult [facility] [address] [place] [phone] * Lipid Panel, Standard (11/26/2024 10:47 AM EDT) Triglycerides 125 <150 mg/dL [facility] Comment:Desirable Triglyceri de: less than 150 mg/dLBorderline High Triglyceride 150-199 mg/dLHigh Triglyceride: 200-499 mg/dLVery High Triglyceride: greater than or equal to 5OO mg/dL Cholesterol 127 <200 mg/dL [facility] Comment:Desirable Cholestero l: less than 200 mg/dLBorderline High Cholesterol: 200-239 mg/dLHigh Cholesterol: greater than 239 mg/dL LDL Cholesterol Calculated 59 <100 mg/dL [facility] Comment:Desirable LDL: less than 100 mg/dLNear Optimal/Above Optimal LDL: 110- 129 mg/dLBorderline High LDL: 130-159 mg/dLHigh LDL: 160-189 mg/dLVery High LDL: greater than or equal to 190 mg/dL HDL Cholesterol 43 >40 mg/dL [facility] Comment:Desirable HDL: great er than 40 mg/dL Note: This HDL assay may give artificially low results in patients with liver disease. Blood Venous blood specimen / Unknown 11/26/2024 10:47 AM EDT 11/26/2024 1:17 PM EDT [facility] PARLIAMENTARY COUNSEL LAB BLOOD ORDERABLES Final Re sult Performing Organization Address [facility]/ZIP Co de Phone Number [facility] [address] [place] [phone] * HEPATITIS C AB W/REFL TO HCV RNA, QN, PCR (02/27/2020 9:28 AM EDT) HEPATITIS C ANTIBODY NON-REACT [facility] NON-REACT [facility] INDEX 0.02 <1.00 [facility] Comment: HCV antibody was non-reactive. There is no laboratory evidence of HCV infection. In most cases, no further action is required. However, if recent HCV exposure is suspected, a test for HCV RNA (test code 42624) is suggested. For additional information please refer to http://education.[employer]/faq/KBK26b6 (This link is being provided for informational/ educational purposes only.) 02/27/2020 9:28 AM EDT Marcos Robles PARLIAMENTARY COUNSEL HISTORICAL/NON ORDERABLE LA BS Final Result Performing Organization Address City/[facility]/ZIP Co de Phone Number [facility] [address] [place] [address], [place] * HIV 1/2 ANTIGEN/ANTIBODY,FOURTH GENERATION W/RFL (02/27/2020 9:28 AM EDT) HIV-1/2 ANTIGEN AND ANTIBODIES, 4TH GENERATION W/ REFLEX NON-REACT [facility] NON-REACT [facility] Comment: HIV-1 antigen [...] purpose. For additional information please refer to http://education.Diarize/faq/UAX458 (This link is being provided for informational/ educational purposes only.) The performance of this assay has not been clinically validated in patients less than 2 years old. 02/27/2020 9:28 AM EDT Marcos Robles PARLIAMENTARY COUNSEL LAB BLOOD ORDERABLES Final Result Performing Organization Address City/State/[facility] Co de Phone Number [facility] [address] * (ABNORMAL) Colonoscopy (06/20/2015) Colonoscopy Abnormal( A) Normal Comment:polyps-5 year follow up Historical Provider MD HEALTH MAINTENANCE Final Result from Last 3 Months or Most Recently Relevant to Health Maintenance Insurance [facility] ONE CARE < 65 [facility] Care Teams Manager Labor Delivery Relationship Specialty Start Date End Date Carmen Mejia FNP [address] [place] [phone] PCP - General Family Medicine 03/18/21
--- OUTSIDE RECORDS SUMMARY | 2025-03-07 12:53 | XMS_ITS | Encounter Summary ---
Author Organization [employer] Address [address] [facility] [address] [place] [address] Care Team Providers Care Punch Box Tender Name Role Phone Carmen Mejia APPRAISER LAND Primary Care Provider [phone] Encounter Details Date Type Department Care Team (Late st Contact Info) Description 07/07/2022 Orders Only [facility] [address] [place] [address] Ritika Mcgovern LPN Social History Tobacco Use [...] 04/02/2025 11:00 AM EDT Office Visit [facility] [address] [place] [address] documented as of this encounter Visit Diagnoses Not on filedocumented in this encounter Care Teams Punch Box Tender Relationship Specialty Start Date End Date Carmen Mejia FNP [address] [place] [address] PCP - General Family Medicine 03/18/21 documented as of this encounter
--- OUTSIDE RECORDS SUMMARY | 2025-03-07 12:53 | XMS_ITS | Encounter Summary ---
Author Organization [employer] Address [address] [place] [address] [address] [place] [address] [address] Providers Care Lane Attendant Name Role Phone Carmen Mejia SPECIAL EDUCATION DIRECTOR Primary Care Provider [phone] Encounter Details Date Type Department Care Team (Late st Contact Info) Description 07/08/2022 Orders Only [facility] [address] [place] [phone] Shannon Sargent LPN Social History Tobacco Use [...] 04/02/2025 11:00 AM EDT Office Visit [facility] [address] [place] [phone] documented as of this encounter Visit Diagnoses Not on filedocumented in this encounter Care Teams Lane Attendant Relationship Specialty Start Date End Date Carmen Mejia FNP [address] [place] [phone] PCP - General Family Medicine 03/18/21 documented as of this encounter
--- OUTSIDE RECORDS SUMMARY | 2025-03-07 12:53 | XMS_ITS | Encounter Summary ---
Author Organization [employer] Address [address] [facility] 7t [place] [address] Care Team Providers Care Tube Test Technician Name Role Phone Carmen Mejia [facility] Primary Care Provider [phone] Reason for Visit * Reason Comments Med Refill Encounter Details Date Type Department Care Team (Late st Contact Info) Description 10/12/2023 Refill [facility] [address] [place], [place] [phone] Carmen Mejia [facility] 230 [place] [address] Primary insomnia Social History Tobacco Use Types [...] Description 04/02/2025 11:00 AM EDT Office Visit [facility] [address] [place] [address] documented as of this encounter Visit Diagnoses Diagnosis Primary insomnia Persistent disorder of initiating or maintaining sleep documented in this encounter Additional Health Concerns Assessment Noted Time PHQ-9 Depression Total Score: 24 023 9:04 AM EDT documented as of this encounter Care Teams Tube Test Technician Relationship Specialty Start Date End Date Carmen Mejia FNP 230 [place] [address] PCP - General Family Medicine 03/18/21 documented as of this encounter
--- OUTSIDE RECORDS SUMMARY | 2025-03-07 12:53 | XMS_ITS | Encounter Summary ---
Author Organization [employer] Address [address] [facility] 7t [place] [address] Care Team Providers Care Program Dir Name Role Phone Carmen Mejia [facility] Primary Care Provider [phone] Reason for Visit * Reason Comments Med Refill Encounter Details Date Type Department Care Team (Late st Contact Info) Description 01/08/2024 Refill [facility] MED[facility]INE [address] [place], [place] [phone] [facility] 230 [place] [address] Moderate persistent asthma without complication Social History [...] 04/02/2025 11:00 AM EDT Office Visit [facility] MED[facility] [address] [place] [address] documented as of this encounter Visit Diagnoses Diagnosis Moderate persistent asthma without complication documented in this encounter Additional Health Concerns Assessment Noted Time PHQ-9 Depression Total Score: 0 11/09/19 24 9:34 AM EDT documented as of this encounter Care Teams Program Dir Relationship Specialty Start Date End Date Carmen Mejia FNP [address] [place] [address] PCP - General Family Medicine 03/18/21 documented as of this encounter
--- OUTSIDE RECORDS SUMMARY | 2025-03-07 12:53 | XMS_ITS | Encounter Summary ---
Author Organization [employer] Address [address] [facility] 7t [place] [address] Care Team Providers Care Interpreter For The Deaf Name Role Phone Roberto [facility] Primary Care Provider [phone] Reason for Visit * Reason Comments Med Refill Encounter Details Date Type Department Care Team (Late st Contact Info) Description 01/03/2024 Refill [facility] MED & PEDS [address] [place], [place] [phone] [place], [facility] [address] [facility] [place] [address] Nontraumatic incomplete tear of rotator cuff, unspecified [...] Description 04/02/2025 11:00 AM EDT Office Visit [facility] MEDICINE 230 [place] [address] documented as of this encounter Visit Diagnoses Diagnosis Nontraumatic incomplete tear of rotator cuff, unspecified laterality documented in this encounter Additional Health Concerns Assessment Noted Time PHQ-9 Depression Total Score: 0 11/09/19 24 9:34 AM EDT documented as of this encounter Care Teams Interpreter For The Deaf Relationship Specialty Start Date End Date Carmen Mejia FNP 230 [place] [address] PCP - General Family Medicine 03/18/21 documented as of this encounter
--- OUTSIDE RECORDS SUMMARY | 2025-03-07 12:53 | XMS_ITS | Encounter Summary ---
Author Organization [employer] Address [address] [facility] [address] [place] [address] Care Team Providers Care Box Truck Driver Name Role Phone Carmen Mejia [facility] Primary Care Provider [phone] Reason for Visit * Reason Onset Date Comments Referral 02/25/2025 Encounter Details Date Type Department Care Team (Late st Contact Info) Description 02/25/2025 Telephone [facility] MEDICINE 230 [place], [place] [phone] Carmen Mejia [facility] 230 [place] [address] Referral Social History Tobacco Use Types Packs/Day [...] referral to general surgeon be faxed too [phone] Contact pt at [phone] documented in this encounter Plan of Treatment Upcoming Encounters Date Type Department Care Team (Late st Contact Info) Description 04/02/2025 11:00 AM EDT Office Visit [facility] 230 [place] [address] documented as of this encounter Visit Diagnoses Not on filedocumented in this encounter Additional Health Concerns Assessment Noted Time PHQ-9 Depression Total Score: 0 11/06/19 25 8:57 AM EDT documented as of this encounter Care Teams Box Truck Driver Relationship Specialty Start Date End Date Carmen Mejia FNP [address] [place] [address] PCP - General Family Medicine 03/18/21 documented as of this encounter
--- OUTSIDE RECORDS SUMMARY | 2025-03-07 12:53 | XMS_ITS | Encounter Summary ---
Author Organization [employer] Address [address] [facility] 7t [place] [address] Care Team Providers Care Fixed Route Operator Name Role Phone Roberto [facility] Primary Care Provider [phone] Reason for Visit * Reason Comments Med Refill Encounter Details Date Type Department Care Team (Late st Contact Info) Description 01/02/2024 Refill [facility] MED & PEDS [address] [place], [place] [phone] [place], [facility] 230 [place] [address] Nontraumatic incomplete tear of rotator cuff, unspecified [...] Description 04/02/2025 11:00 AM EDT Office Visit [facility] MEDICINE 230 [place] [address] documented as of this encounter Visit Diagnoses Diagnosis Nontraumatic incomplete tear of rotator cuff, unspecified laterality documented in this encounter Additional Health Concerns Assessment Noted Time PHQ-9 Depression Total Score: 0 11/09/19 24 9:34 AM EDT documented as of this encounter Care Teams Fixed Route Operator Relationship Specialty Start Date End Date Carmen Mejia FNP 230 [place] [address] PCP - General Family Medicine 03/18/21 documented as of this encounter
--- OUTSIDE RECORDS SUMMARY | 2025-03-07 12:53 | XMS_ITS | Encounter Summary ---
Author Organization [email or web address] Address [address] [facility] 7t [place] [address] Care Team Providers Care Yard Goods Salesperson Name Role Phone Carmen Mejia [facility] Primary Care Provider [phone] Encounter Details Date Type Department Care Team (Late st Contact Info) Description 06/11/[address] [facility] CHC MED & PEDS [address] [place] [address] Ritika Mcgovern LPN Social History Tobacco Use [...] Description 04/02/2025 11:00 AM EDT Office [address] [facility] MEDICINE 230 [place] [address] documented as of this encounter Visit Diagnoses Not on filedocumented in this encounter Care Teams Yard Goods Salesperson Relationship Specialty Start Date End Date Carmen Mejia FNP 230 [place] [address] PCP - General Family Medicine 03/18/21 documented as of this encounter
--- OUTSIDE RECORDS SUMMARY | 2025-03-07 12:53 | XMS_ITS | Encounter Summary ---
Author Organization [employer] Address [address] [facility] 7t [place] [address] Care Team Providers Care Professor Of Practice Name Role Phone Carmen Mejia [facility] Primary Care Provider [phone] Encounter Details Date Type Department Care Team (Late st Contact Info) Description 05/05/2023 Abstract [facility] MEDICINE 230 [place] [address] Dia Gibson Social History Tobacco Use Types [...] Description 04/02/2025 11:00 AM EDT Office Visit [facility] MEDICINE 230 [place] [address] documented as of this encounter Visit Diagnoses Not on filedocumented in this encounter Additional Health Concerns Assessment Noted Time PHQ-9 Depression Total Score: 24 023 9:04 AM EDT documented as of this encounter Care Teams Professor Of Practice Relationship Specialty Start Date End Date Carmen Mejia FNP 230 [place] [address] PCP - General Family Medicine 03/18/21 documented as of this encounter
== END 2025-03-07 10:45 | disposition home or self-care (01) ==
LOC: HO.BBR 10:44
PROVIDERS: PCP Registered Nurse; Visit Provider Urology
DX: Z79.899 Other long term (current) drug therapy (principal)
CPT/HCPCS: 85014; 85018; 99195

== ENCOUNTER 2025-03-11 12:38 | Outpatient (AMB) | payer OTHER, SELFPAY ==
--- NOTE | 2025-03-11 12:56 | A.OFFVIS_ITS ---
Vital Signs 03/11/25 12:57 Height 5 ft 8 in Weight 207 lb BMI 31.5 BP 120/76 Blood Pressure Location Lt brachial Position Sitting Pulse 83 Intake Visit Reasons: 1 year follow up device ck Intake Note: 1 year follow-up after [employer] feeling good Break Up Worker Required: No Allergies avocado (AVOCADO) Allergy (Severe, Verified 03/06/25 08:34) HIVES/SOB lisinopril Allergy (Severe, Verified 03/06/25 08:34) Unknown passion fruit (PASSION FRUIT) Allergy (Severe, Verified 03/06/25 08:34) HIVES/SOB sacubitril (Entresto) Allergy (Severe, Verified 03/06/25 08:34) Unknown valsartan (Entresto) Allergy (Severe, Verified 03/06/25 08:34) Unknown soy (SOY) Allergy (Unknown, Verified 03/06/25 08:34) SWELLING acetaminophen (From Percocet) Adverse Reaction (Verified 03/06/25 08:34) Gastrointestinal Upset oxycodone (From Percocet) Adverse Reaction (Verified 03/06/25 08:34) Gastrointestinal Upset Medication List - Last Reconciled 03/11/25 by Ramin Pillai MD acetaminophen-codeine 300-60 mg 1 tab PO TID PRN albuterol sulfate 90 mcg/actuation 1 inh inhalation Q4H PRN aspirin 81 mg PO QAM atorvastatin 40 mg PO BEDTIME betamethasone dipropionate 0.05% 1 appl topical BID blood sugar diagnostic (FreeStyle Lite Strips) As directed budesonide-formoterol 160-4.5 mcg/actuation (Symbicort) 2 puffs inhalation BID carvedilol 25 mg PO BID cetirizine 10 mg PO QAM cholecalciferol (vitamin D3) 50 mcg PO DAILY citalopram 20 mg PO QAM cyanocobalamin (vitamin B-12) 1,000 mcg PO DAILY cyclobenzaprine 10 mg PO TID PRN diclofenac sodium 1% (Arthritis Pain (diclofenac)) 4 grams topical QID PRN 30 days famotidine 40 mg PO BEDTIME furosemide 40 mg PO QAM hydralazine 50 mg PO BID insulin syringe-needle U-100 Use once a week to inject testosterone lancets (TRUEplus Lancets) As directed lansoprazole 30 mg PO DAILY metformin 1,000 mg PO multivitamin 1 tab PO QAM quetiapine 50 mg PO BEDTIME tadalafil 20 mg PO ONCE PRN 30 days testosterone cypionate 80 mg (0.4 mL) subcut QWEEK 28 days tirzepatide (Mounjaro) 7.5 mg subcut QWEEK zolpidem 5 mg PO BEDTIME HPI Comments Details: Andry comes for follow-up. He has been doing well from cardiac perspective. Denies any exertional chest pain or shortness of breath. No orthopnea, PND, leg edema. Blood pressures been generally well controlled. Walks regularly without any symptoms. No prolonged palpitation irregular heartbeat. No lightheadedness, syncope, ICD discharge. Takes all his medications. [facility] Medical History HFrEF (heart failure with reduced ejection fraction) ICD (implantable cardioverter-defibrillator) in place Nonischemic cardiomyopathy HTN (hypertension) Diabetes mellitus CAD (coronary artery disease) Surgical History History of carpal tunnel surgery H/O colonoscopy History of cardiac cath (~2017) Family History Father No problems noted. Mother No problems noted. Social History Household Members: Spouse Alcohol intake: former Patient Tobacco Use Status: Former Tobacco user Second Hand Smoke Exposure: No Review of Systems Const Denies chills, Denies fatigue, Denies fever(s), Denies frequent falls, Denies weakness, Denies weight gain and Denies weight loss ENT Denies dizziness Card Denies chest pain, Denies leg edema, Denies lightheadedness, Denies palpitations, Denies dyspnea, Denies dyspnea on exertion, Denies orthopnea and Denies other (loss of consciousness) Resp Denies cough, Denies dyspnea and Denies dyspnea on exertion GI Denies hematochezia and Denies change in stool character Musc Denies abnormal gait, Denies muscle weakness, Denies numbness, Denies radiating pain into limb and Denies tingling Neuro Denies abnormal gait, Denies dizziness, Denies frequent falls, Denies numbness, Denies tingling and Denies weakness Endo Denies fatigue and Denies palpitations Physical Exam Vital Signs: Last Vital Signs Pulse 83 03/11/25 12:57 BP 120/76 03/11/25 12:57 BMI result Body Mass Index 31.5 Const General: cooperative, comfortable, no acute distress, alert, awake and well groomed Nutritional Appearance: overweight Orientation/consciousness: patient oriented x3 Limitations: no limitations Neck Neck: Yes trachea midline, Yes supple and Yes no JVD Resp Effort & Inspection: normal respiratory effort Auscultation: clear to auscultation bilaterally Cardio Jugular venous distension: no JVD Palpation: normal PMI Rate: regular rate Rhythm: regular rhythm Heart sounds: S1 normal heart sound present, S2 normal heart sound present, no click, no gallops, no murmurs and no rubs GI Auscultation: normal bowel sounds Skin General skin exam: no rashes or lesions noted Neuro General: patient oriented x3 and no focal motor deficits Extrem General: Yes no clubbing, cyanosis or edema Psych Appearance: grossly normal Office Procedures Cardiac Device Check Cardiac Device Check Details: Single-chamber [employer] ICD in place. Programmed in VVI at 40 beats per minute. Ventricular pacing thresholds adequate. Pacing and shock lead impedance is stable. Atrial ventricular sensing is adequate. Battery life is a t 37% 95214-FM Cardiac Device Check, single lead implantable defibrillator Procedure code (CPT) selection complete Assessment & Plan Assessment & Plan (1) Heart failure with recovered ejection fraction (HFrecEF): Code(s): I50.20 - Unspecified systolic (congestive) heart failure Category: Medical Plan: Heart failure with recovered LV ejection fraction with LVEF of 50-55% without signs or symptoms of heart failure. Doing well on current medical therapy. Continue neurohormonal modulation with carvedilol. Could not tolerate lisinopril or Entresto therapy due to allergies. Continue current diuretic regimen. Daily weight monitoring avoidance salt salt loading was discussed. Continue hydralazine therapy. Continue participate in aggressive exercise and weight loss program. Understands agrees. (2) ICD (implantable cardioverter-defibrillator) in place: Comment: implanted 2018-[employer] Code(s): Z95.810 - Presence of automatic (implantable) cardiac defibrillator Category: Medical Plan: ICD in place for primary prevention. Working well. Reprogrammed for adequate functioning. Will follow remotely for heart failure as well as device parameters. Follow up in the clinic in 6 months time. (3) CAD (coronary artery disease): Code(s): I25.10 - Atherosclerotic heart disease of twenty[place]nine palms coronary artery without angina pectoris Category: Medical Plan: Nonobstructive CAD without any symptoms. Continue aggressive medical therapy. Continue low-dose aspirin therapy. Blood pressure is currently well optimized. Target goal blood pressure less than 130/84. Continue high-intensity statin therapy with target goal LDL less than 70 mg/dL. Continue aggressive diabetes management goal hemoglobin A1c less than 7%. Will follow up in the clinic in 6 months time, sooner PRN. Thank you for allowing me to partake in his care Coding Level of Care Code Est Pt Level 4 (64227) Complex EM visit Add On G2211 Diagnoses Heart failure with recovered ejection fraction (HFrecEF) I50.20 ICD (implantable cardioverter-defibrillator) in place Z95.810 CAD (coronary artery disease) I25.10 CPT Codes Cardiac Device Check - Cardiac Device 4: 38158-VG Cardiac Device Check, single lead implantable defibrillator ([id number])
[2025-03-11 12:57] VITALS: BP 120/76; PULSE 83; BMI 31.5
--- OUTSIDE RECORDS SUMMARY | 2025-03-11 15:07 | XMS_ITS | Encounter Summary ---
Author Organization [facility]
--- OUTSIDE RECORDS SUMMARY | 2025-03-11 15:07 | XMS_ITS | Encounter Summary ---
Demographics Address [address] [place] [address] Mobile Phone
== END 2025-03-11 13:27 | disposition home or self-care (01) ==
LOC: HO.HCS 12:39
PROVIDERS: PCP Registered Nurse; Visit Provider Internal Medicine Cardiovascular Disease
DX: I50.20 Unspecified systolic (congestive) heart failure (principal); Z95.810 Presence of automatic (implantable) cardiac defibrillator; I25.10 Atherosclerotic heart disease of native coronary artery without angina pectoris
CPT/HCPCS: 93282; 99214; G2211

== ENCOUNTER → 2025-03-11 12:38 | Outpatient (BNVA) | payer OTHER, SELFPAY | PROVIDERS: PCP Registered Nurse; Visit Provider Internal Medicine Cardiovascular Disease | DX: I25.10 Atherosclerotic heart disease of native coronary artery without angina pectoris (principal); I50.20 Unspecified systolic (congestive) heart failure; Z95.810 Presence of automatic (implantable) cardiac defibrillator | CPT/HCPCS: 99212 ==

== ENCOUNTER 2025-04-02 10:59 | Outpatient (AMB) | payer OTHER, SELFPAY ==
--- NOTE | 2025-04-02 11:04 | A.OFFVIS_ITS ---
Vital Signs 3 04/02/25 11:09 Height 5 ft 8 in Weight 225 lb BMI 34.2 BP 135/69 Blood Pressure Location Lt brachial Position Sitting Pulse 85 Intake Visit Reasons: skin nodule Intake Note: Patient is seen in office for evaluation of a cyst on the neck. Pt c/o:onset over a month, has decrease since, denies redness, infection or discharge, pain, admits to feeling hard as a rock Respiratory Equipment Assistant Required: No Accompanied by: Self / Same As Patient Allergies avocado (AVOCADO) Allergy (Severe, Verified 04/02/25 11:08) HIVES/SOB lisinopril Allergy (Severe, Verified 04/02/25 11:08) Unknown passion fruit (PASSION FRUIT) Allergy (Severe, Verified 04/02/25 11:08) HIVES/SOB sacubitril (Entresto) Allergy (Severe, Verified 04/02/25 11:08) Unknown valsartan (Entresto) Allergy (Severe, Verified 04/02/25 11:08) Unknown soy (SOY) Allergy (Unknown, Verified 04/02/25 11:08) SWELLING acetaminophen (From Percocet) Adverse Reaction (Verified 04/02/25 11:08) Gastrointestinal Upset oxycodone (From Percocet) Adverse Reaction (Verified 04/02/25 11:08) Gastrointestinal Upset Medication List - Last Reconciled 04/02/25 by Alexx Santoyo MD acetaminophen-codeine 300-60 mg 1 tab PO TID PRN albuterol sulfate 90 mcg/actuation 1 inh inhalation Q4H PRN aspirin 81 mg PO QAM atorvastatin 40 mg PO BEDTIME betamethasone dipropionate 0.05% 1 appl topical BID blood sugar diagnostic (FreeStyle Lite Strips) As directed budesonide-formoterol 160-4.5 mcg/actuation (Symbicort) 2 puffs inhalation BID carvedilol 25 mg PO BID cetirizine 10 mg PO QAM cholecalciferol (vitamin D3) 50 mcg PO DAILY citalopram 20 mg PO QAM cyanocobalamin (vitamin B-12) 1,000 mcg PO DAILY cyclobenzaprine 10 mg PO TID PRN diclofenac sodium 1% (Arthritis Pain (diclofenac)) 4 grams topical QID PRN 30 days famotidine 40 mg PO BEDTIME furosemide 40 mg PO QAM hydralazine 50 mg PO BID insulin syringe-needle U-100 Use once a week to inject testosterone lancets (TRUEplus Lancets) As directed lansoprazole 30 mg PO DAILY metformin 1,000 mg PO multivitamin 1 tab PO QAM quetiapine 50 mg PO BEDTIME tadalafil 20 mg PO ONCE PRN 30 days testosterone cypionate 80 mg (0.4 mL) subcut QWEEK 28 days tirzepatide (Mounjaro) 7.5 mg subcut QWEEK zolpidem 5 mg PO BEDTIME HPI Comments Details: 60-year-old male patient presenting for evaluation of an inflamed sebaceous cyst of the posterior neck. His past medical history is significant for previous [place], hypertension, diabetes mellitus, diabetic retinopathy, coronary artery disease, cardiomyopathy, HFrEF, status post AICD placement, polycythemia, and opioid use history. First evidence of the cyst was approximately 1 month ago and initially lesion was quite painful and red. Since this time the lesion has decreased in size to some degree but remains hard. Patient has requested excision of the cyst to prevent further infection. He denies any previous surgery in this location. Denies any fever or chills. [facility] Medical History HFrEF (heart failure with reduced ejection fraction) ICD (implantable cardioverter-defibrillator) in place Nonischemic cardiomyopathy HTN (hypertension) Diabetes mellitus CAD (coronary artery disease) Surgical History History of carpal tunnel surgery H/O colonoscopy History of cardiac cath (~2017) Family History Father No problems noted. Mother No problems noted. Social History Household Members: Spouse Alcohol intake: former Patient Tobacco Use Status: Former Tobacco user Second Hand Smoke Exposure: No Review of Systems Const All systems reviewed & are unremarkable except as noted in HPI and below Physical Exam Vital Signs: Last Vital Signs Pulse 85 04/02/25 11:09 BP 135/69 04/02/25 11:09 BMI result Body Mass Index 34.2 Const General: cooperative and no acute distress Nutritional Appearance: well nourished Orientation/consciousness: patient oriented x3 Limitations: no limitations HEENT Head: Yes normocephalic and Yes atraumatic Ears: hearing grossly normal bilaterally Neck Other: 2.5 cm epidermal inclusion cyst to the right of midline posterior neck just above the neck crease. Neck images: 2 1. 2.5 cm epidermal inclusion cyst with slight redness in the overlying skin, mildly tender but non fluctuant to palpation. Resp Effort & Inspection: normal respiratory effort, no audible wheezes, no cough and no respiratory distress Cardio Jugular venous distension: no JVD GI Inspection: Yes normal to inspection Skin Other: Warm, dry, no rash Neuro General: patient oriented x3 Extrem General: Yes no clubbing, cyanosis or edema Assessment & Plan Assessment & Plan (1) Epidermal inclusion cyst: Code(s): L72.0 - Epidermal cyst Category: Medical Plan 60-year-old male patient presenting with a recently infected epidermal inclusion cyst of the posterior right neck. This has decreased in size to some degree but still remains hard. Examination today reveals a 2.5 cm sebaceous cyst of the posterior right neck with no evidence of fluctuance to palpation. I recommended an excision under local anesthesia as an office procedure. After discussion of the procedure, risks, and alternatives, he consents to the surgery. He will return on 05/13/2025 for this procedure. Coding Level of Care Code New Pt Level 4 (87641) Diagnoses Epidermal inclusion cyst L72.0
[2025-04-02 11:09] VITALS: BP 135/69; PULSE 85; BMI 34.2
--- OUTSIDE RECORDS SUMMARY | 2025-04-02 13:11 | XMS_ITS | Encounter Summary ---
Author Organization [employer] Address [address] [place] [address] 7[address] [place] [address] Care Team Providers Care Curatorial Specialist Name Role Phone Antonito [facility] Primary Care Provider [phone] Reason for Visit * Reason Comments Med Refill Encounter Details Date Type Department Care Team (Late st Contact Info) Description 11/18/[address] [facility] MEDICINE [address] [place] [address] [phone] [facility] [address] [place], [place] [phone] Primary insomnia; Type 2 diabetes mellitus with other specified complication, without long-term current use of insulin ([facility]) Social History Tobacco Use Types Packs/Day [...] Care Team (Late st Contact Info) Description 05/27/2025 9:00 AM EST Office Visit [facility] MEDICINE [address] [place] [phone] [facility] [address] [place] [address] documented as of this encounter Visit Diagnoses Diagnosis Primary insomnia Persistent disorder of initiating or maintaining sleep Type 2 diabetes mellitus with other specified complication, without long-term current use of insulin (HCC) documented in this encounter Additional Health Concerns Assessment Noted Time PHQ-9 Depression Total Score: 0 10/15/19 23 8:58 AM EDT documented as of this encounter Care Teams Curatorial Specialist Relationship Specialty Start Date End Date Carmen Mejia FNP [address] [place] [address] PCP - General Family Medicine 03/18/21 documented as of this encounter
--- OUTSIDE RECORDS SUMMARY | 2025-04-02 13:11 | XMS_ITS | Encounter Summary ---
Author Organization [email or web address] Address 75 [facility] 7t [place] [address] Care Team Providers Care Hydrotherapist Name Role Phone Roberto [facility] Primary Care Provider [phone] Reason for Visit * Reason Comments Med Refill Encounter Details Date Type Department Care Team (Late st Contact Info) Description 01/05/2025 Refill [facility] [address] [place], [place] [phone] [facility] [address] [place] [address] Diabetes mellitus type 2 with neurological manifestations [...] Description 05/27/2025 9:00 AM EST Office Visit [facility] [address] [place] [address] Carmen Mejia FNP [address] [place] [address] documented as of this encounter Visit Diagnoses Diagnosis Diabetes mellitus type 2 with neurological manifestations (HCC) documented in this encounter Additional Health Concerns Assessment Noted Time PHQ-9 Depression Total Score: 0 11/06/19 25 8:57 AM EDT documented as of this encounter Care Teams Hydrotherapist Relationship Specialty Start Date End Date Carmen Mejia FNP [address] [place] [address] PCP - General Family Medicine 03/18/21 documented as of this encounter
--- OUTSIDE RECORDS SUMMARY | 2025-04-02 13:11 | XMS_ITS | Encounter Summary ---
Author Organization [employer] Address 75 [facility] 7t [place] [address] Care Team Providers Care Machine Iii Coremaker Name Role Phone Carmen Mejia Primary Care Provider [phone] Encounter Details Date Type Department Care Team (Late Contact Info) Description 03/07/2023 Orders Only [facility] [address] [place] [address] Shannon Sargent LPN Social History Tobacco Use [...] Department Care Team (Late Contact Info) Description 05/27/2025 9:00 AM EST Office Visit [facility] 230 [place] [address] Carmen Mejia FNP [address] [place] [address] documented as of this encounter Visit Diagnoses Not on filedocumented in this encounter Additional Health Concerns Assessment Noted Time PHQ-9 Depression Total Score: 0 01/14/20 9:12 AM EDT documented as of this encounter Care Teams Machine Iii Coremaker Relationship Specialty Start Date End Date Carmen Mejia FNP [address] [place] [address] PCP - General Family Medicine 03/18/21 documented as of this encounter
--- OUTSIDE RECORDS SUMMARY | 2025-04-02 13:12 | XMS_ITS | Encounter Summary ---
Author Organization [employer] Address [address] [place] [address] 7t [place] [address] Care Team Providers Care Inventory Accountant Name Role Phone Carmen Mejia [facility] Primary Care Provider [phone] Reason for Visit * Reason Comments Med Refill Encounter Details Date Type Department Care Team (Late st Contact Info) Description 11/16/2022 Refill [facility] [address] [place] [address] Melani Haider FNP [address] [place], [place] [phone] Other chronic pain Social History Tobacco Use [...] Description 05/27/2025 9:00 AM EST Office Visit [facility] MED[facility] [address] [place] [address] Roberto Carmen [facility] 230 [place] [address] documented as of this encounter Visit Diagnoses Diagnosis Other chronic pain documented in this encounter Additional Health Concerns Assessment Noted Time PHQ-9 Depression Total Score: 0 10/15/19 23 8:58 AM EDT documented as of this encounter Care Teams Inventory Accountant Relationship Specialty Start Date End Date Carmen Mejia FNP [address] [place] [address] PCP - General Family Medicine 03/18/21 documented as of this encounter
--- OUTSIDE RECORDS SUMMARY | 2025-04-02 13:12 | XMS_ITS | Encounter Summary ---
Author Organization [employer] Address 75 [facility] 7t [place] [address] Care Team Providers Care Dental Associate Name Role Phone Roberto Carmen [facility] Primary Care Provider [phone] Encounter Details Date Type Department Care Team (Late Contact Info) Description 10/15/2022 Orders Only [facility] & PEDS [address] [place] [address] Ritika Mcgovern LPN Social History Tobacco Use [...] [facility] [address] [place], [place] [phone] Carmen Mejia [facility] [address] [place] [address] documented as of this encounter Visit Diagnoses Not on filedocumented in this encounter Additional Health Concerns Assessment Noted Time PHQ-9 Depression Total Score: 0 10/15/19 23 8:58 AM EDT documented as of this encounter Care Teams Dental Associate Relationship Specialty Start Date End Date [facility]arm[facility] [address] [place] [address] PCP - General Family Medicine 03/18/21 documented as of this encounter
--- OUTSIDE RECORDS SUMMARY | 2025-04-02 13:12 | XMS_ITS | Encounter Summary ---
Author Organization [employer] Address 75 [facility] 7t [place] [address] Care Team Providers Care Die Casting Machine Maintainer Name Role Phone Carmen Mejia [employer]ISTANT MANAGER RETAIL Primary Care Provider [phone] Reason for Visit * Reason Onset Date Comments denture appt PA 11/02/2022 Encounter Details Date Type Department Care Team (Late st Contact Info) Description 11/02/2022 Telephone [facility] ADULT [facility]AL 230 [place] [address] Bal Aponte, DMD 230 [place] [address] denture appt PA Social History Tobacco Use [...] - 11/02/2022 11:09 AM EDT Rep from [facility] called in checking in on the status [...] Description 05/27/2025 9:00 AM EST Office Visit [facility] MEDIC[facility] 230 [place] [address] Carmen Mejia FNP 230 [place] [address] documented as of this encounter Visit Diagnoses Not on filedocumented in this encounter Additional Health Concerns Assessment Noted Time PHQ-9 Depression Total Score: 0 10/15/19 23 8:58 AM EDT documented as of this encounter Care Teams Die Casting Machine Maintainer Relationship Specialty Start Date End Date Carmen Mejia FNP 230 [place] [address] PCP - General Family Medicine 03/18/21 documented as of this encounter
--- OUTSIDE RECORDS SUMMARY | 2025-04-02 13:13 | XMS_ITS ---
[...] without long-term current use of insulin (CMS/HCC) POCT GLUCOSE Routine 02/25/2025 8:51 AM EDT Type 2 diabetes mellitus with hyperglycemia, without long-term current use of insulin (CMS/HCC) TESTOSTERONE, TOTAL, MALES (ADULT), IA Routine 01/30/2025 10:22 AM EDT PSA, TOTAL Routine 01/30/2025 10:22 AM EDT CBC Routine 01/30/2025 10:22 AM EDT POCT KINA-14 URINE DRUG SCREEN Routine 01/29/2025 11:31 AM EDT Other chronic pain ALBUMIN, RANDOM URINE W/CREATININE Routine 11/26/2024 10:47 [...] POCT Hgb A1c (02/25/2025 8:53 AM EDT) Pathologist [facility] Hemoglobin A1C 8.4(A) 4.0 - 5.7 % Blood 02/25/2025 8:53 AM EDT [facility] POINT OF CARE TEST ENTER/EDIT ORDERABLES Final Result * (ABNORMAL) POCT Glucose (02/25/2025 8:51 AM EDT) Pathologist [facility] Glucose Blood, POC 231(A) 60 - 200 mg/dL Blood Capillary blood specimen / Unknown 02/25/2025 8:51 AM EDT [facility] POINT OF CARE TEST ENTER/EDIT ORDERABLES Final Result * (ABNORMAL) CBC (01/30/2025 10:22 AM EDT) White Blood Count 10.9(H) 4.8 - 10.8 X10*3/uL [facility] Red Blood Count 6.61(H) 4.60 - 5.80 X10*6/uL [facility] Hemoglobin 14.9 14.0 - 18.0 g/dl [facility] Hematocrit 49.7 42.0 - 52.0 % [facility] Mean Corpuscular Volume 75.2(L) 80.0 - 98.0 fL [facility] Mean Corpuscular Hemoglobin 22.5(L) 27.0 - 33.0 pg [facility] Mean Corpuscular HGB Conc 30.0(L) 31.0 - 36.0 g/dl [facility] Red Cell Distribution Width 20.6(H) 11.0 - 16.0 % [facility] Platelet Count 278 160 - 400 X10*3/uL [facility] Mean Platelet Volume 10.9 9.4 - 12.4 fL [facility] NRBC Pct Auto 0.0 0.0 - 0.2 /100WBC [facility] NRBC Abs Auto 0.000 0.0 - 0.012 X10*3/uL [facility] 01/30/2025 10:2 2 AM EDT 01/30/2025 10:22 AM EDT us Generic External Data Provider LAB BLOOD ORDERAB LES Final Result Performing Organization Address [facility] Co de Phone Number [facility] [address] [place] [phone] * Testosterone, Total, males (Adult), IA (01/30/2025 10:22 AM EDT) Testosterone, Total 487 250 - 1100 ng/dL [facility] Comment:For additional infor mation, please refer tohttp://education.[employer]/faq/MedlvJbjirqcjhqguWUQSPTAQL913(This link is being provided for informational/educational purposes only.)This test was developed and its analytical performancecharacteristics have been determined by [employer] [place], [place]. It hasnot been cleared or approved by the U.S. Food and DrugAdministration. This assay has been validated pursuantto the CLIA regulations and is used for clinicalpurposes.THIS TEST WAS PERFORMED AT:[employer]/[facility] [place] [address]CEHOISOMEGHAN MARION MD,PHD 01/30/2025 10:2 2 AM EDT 01/30/2025 10:22 AM EDT us Generic External Data Provider LAB BLOOD ORDERAB LES Final Result Performing Organization Address City/[facility] Co de Phone Number [facility] [address] [place] [address] [phone] * PSA,Total (01/30/2025 10:22 AM EDT) Prostate Specific Antigen 0.37 <0.05 - 4.0 ng/mL [facility] Comment:PSA methodology: Dominga Larson i ChemiluminescentMicroparticle Immunoassay (CMIA) 01/30/2025 10:2 2 AM EDT 01/30/2025 10:22 AM EDT us Generic External Data Provider LAB BLOOD ORDERAB LES Final Result [facility] [address] [place] [phone] * (ABNORMAL) POCT KINA-14 Urine Drug [...] - 01/29/2025 11:31 AM EDT .[employer] cup Lot#[id number] Exp. 03/26/26 Internal Pass Control Melani Haider [employer] POINT OF CARE TEST ENTER/EDIT ORDERABLES Final Result * (ABNORMAL) Albumin, Random Urine W/Creatinine (11/26/2024 10:47 AM EDT) Creatinine, Urine 43.29 mg/dL [facility] Microalbumin Urine 53.0 mg/L [facility] Microalbum Creatinine Ratio Ur 122.4(H) <30 ug/mg cr [facility] Comment:Albumin/Creatinine R atio Reference Ranges: Normal: < 30 ug/mg creatinine Microalbuminuria: 30 - 300 ug/mg creatinineClinical Albuminuria: > 300 ug/mg creatinine Urine 11/26/2024 10:4 7 AM EDT 11/26/2024 1:02 PM EDT [facility] LAB URINE ORDERABLES Final Re sult [facility] [address] [place] [phone] * Lipid Panel, Standard (11/26/2024 10:47 AM EDT) Triglycerides 125 <150 mg/dL [facility] Comment:Desirable Triglyceri de: less than 150 mg/dLBorderline High Triglyceride 150-199 mg/dLHigh Triglyceride: 200-499 mg/dLVery High Triglyceride: greater than or equal to 5OO mg/dL Cholesterol 127 <200 mg/dL [facility] Comment:Desirable Cholestero l: less than 200 mg/dLBorderline High Cholesterol: 200-239 mg/dLHigh Cholesterol: greater than 239 mg/dL LDL Cholesterol Calculated 59 <100 mg/dL [facility] Comment:Desirable LDL: less than 100 mg/dLNear Optimal/Above Optimal LDL: 110- 129 mg/dLBorderline High LDL: 130-159 mg/dLHigh LDL: 160-189 mg/dLVery High LDL: greater than or equal to 190 mg/dL HDL Cholesterol 43 >40 mg/dL [facility] Comment:Desirable HDL: great er than 40 mg/dL Note: This HDL assay may give artificially low results in patients with liver disease. Blood Venous blood specimen / Unknown 11/26/2024 10:47 AM EDT 11/26/2024 1:17 PM EDT [facility] LAB BLOOD ORDERABLES Final Re sult [facility] [address] [place] [address] [phone] * HEPATITIS C AB W/REFL TO HCV RNA, QN, PCR (02/27/2020 9:28 AM EDT) HEPATITIS C ANTIBODY NON-REACT LAYNE NON-REACT LAYNE [facility] INDEX 0.02 <1.00 [facility] Comment: HCV antibody was non-reactive. There is no laboratory evidence of HCV infection. In most cases, no further action is required. However, if recent HCV exposure is suspected, a test for HCV RNA (test code 07262) is suggested. For additional information please refer to http://[employer]/faq/VBL16t9 (This link is being provided for informational/ educational purposes only.) 02/27/2020 9:28 AM EDT Marcos Robles KEY CUTTER HISTORICAL/NON ORDERABLE LA BS Final Result [facility] [address] * HIV 1/2 ANTIGEN/ANTIBODY,FOURTH GENERATION W/RFL (02/27/2020 9:28 AM EDT) HIV-1/2 ANTIGEN AND ANTIBODIES, 4TH GENERATION W/ REFLEX NON-REACT LAYNE NON-REACT LAYNE [facility] Comment: HIV-1 antigen and HIV-1/HIV-2 [...] purpose. For additional information please refer to http://[employer]/faq/ADB475 (This link is being provided for informational/ educational purposes only.) The performance of this assay has not been clinically validated in patients less than 2 years old. 02/27/2020 9:28 AM EDT Marcos Robles [employer] LAB BLOOD ORDERABLES Final Result [facility] [address] [place] [address], * (ABNORMAL) Colonoscopy (06/20/2015) Colonoscopy Abnormal( A) Normal Comment:polyps-5 year follow up Historical Provider MD HEALTH MAINTENANCE Final Result from Last 3 Months or Most Recently Relevant to Health Maintenance [place] [address] [address] [place] [address] [address] [id number] Care Teams Accounts Payable Assistant Relationship Specialty Start Date End Date Carmen Mejia FNP [address] [place] [phone] PCP - General Family Medicine 03/18/21
--- OUTSIDE RECORDS SUMMARY | 2025-04-02 13:13 | XMS_ITS | Encounter Summary ---
Author Organization [employer] Address 75 [facility] 7t [place] [address] Care Team Providers Care Grease Refiner Operator Name Role Phone Carmen Mejia [facility] Primary Care Provider [phone] Encounter Details Date Type Department Care Team (Late Contact Info) Description 07/07/2022 Orders Only [facility] MED & PEDS [address] [place] [address] Ritika Mcgovern LPN Social History Tobacco Use [...] 05/27/2025 9:00 AM EST Office Visit [facility] MEDICINE [address] [place] [address] Carmen Mejia FNP [address] [place] [address] documented as of this encounter Visit Diagnoses Not on filedocumented in this encounter Care Teams Grease Refiner Operator Relationship Specialty Start Date End Date Carmen Mejia FNP [address] [place] [address] PCP - General Family Medicine 03/18/21 documented as of this encounter
--- OUTSIDE RECORDS SUMMARY | 2025-04-02 13:13 | XMS_ITS | Encounter Summary ---
Author Organization [employer] Address 75 [facility] 7t [place] [address] Care Team Providers Care Hack Driver Name Role Phone Carmen Mejia [facility] Primary Care Provider [phone] Reason for Visit * Reason Comments Med Refill Encounter Details Date Type Department Care Team (Late st Contact Info) Description 01/08/2024 Refill [facility] MEDICINE [address] [place], [place] [phone] [facility] [address] [place] [address] Moderate persistent asthma without complication Social History [...] Description 05/27/2025 9:00 AM EST Office Visit [facility] MEDICINE [address] [place] [address] Carmen Mejia FNP [address] [place] [address] documented as of this encounter Visit Diagnoses Diagnosis Moderate persistent asthma without complication documented in this encounter Additional Health Concerns Assessment Noted Time PHQ-9 Depression Total Score: 0 11/09/19 24 9:34 AM EDT documented as of this encounter Care Teams Hack Driver Relationship Specialty Start Date End Date Carmen Mejia FNP [address] [place] [address] PCP - General Family Medicine 03/18/21 documented as of this encounter
--- OUTSIDE RECORDS SUMMARY | 2025-04-02 13:13 | XMS_ITS | Encounter Summary ---
Author Organization [employer] Address 75 [facility] 7t [place] [address] Care Team Providers Care Electronics Tech Name Role Phone Roberto [facility] Primary Care Provider Reason for Visit * Reason Comments Med Refill Encounter Details Date Type Department Care Team (Late st Contact Info) Description 01/03/2024 Refill [facility] MED & PEDS [address] [place], [place] [phone] Roberto, [facility] 230 [facility] [place] [address] Nontraumatic incomplete tear of rotator cuff, unspecified [...] 05/27/2025 9:00 AM EST Office Visit [facility] MEDICINE [address] [place] [address] Carmen Mejia FNP [address] [place] [address] documented as of this encounter Visit Diagnoses Diagnosis Nontraumatic incomplete tear of rotator cuff, unspecified laterality documented in this encounter Additional Health Concerns Assessment Noted Time PHQ-9 Depression Total Score: 0 11/09/19 24 9:34 AM EDT documented as of this encounter Care Teams Electronics Tech Relationship Specialty Start Date End Date Carmen Mejia FNP [address] [place] [address] PCP - General Family Medicine 03/18/21 documented as of this encounter
--- OUTSIDE RECORDS SUMMARY | 2025-04-02 13:13 | XMS_ITS | Encounter Summary ---
Author Organization [employer] Address 75 [facility] 7t [place] [address] Care Team Providers Care Learning Coach Name Role Phone Carmen Mejia [facility] Primary Care Provider [phone] Encounter Details Date Type Department Care Team (Late st Contact Info) Description 06/11/2022 Orders Only [facility] MED & PEDS [address] [place] [address] Ritika Mcgovern LPN Social History Tobacco Use [...] Description 05/27/2025 9:00 AM EST Office Visit [facility] MEDICINE [address] [place] [address] [facility] [address] [place] [address] documented as of this encounter Visit Diagnoses Not on filedocumented in this encounter Care Teams Learning Coach Relationship Specialty Start Date End Date Roberto Carmen [facility] [address] [place] [address] PCP - General Family Medicine 03/18/21 documented as of this encounter
--- OUTSIDE RECORDS SUMMARY | 2025-04-02 13:13 | XMS_ITS | Encounter Summary ---
Author Organization [facility] Address [address] [place] [address] Care Team Providers Care Spare Fixer Name Role Phone Gabriel Ag MD Primary Care Provider [phone] Encounter Details Date Type Department Care Team Description 09/22/2015 Release of Information Medical Records [address] [place] [id number] Abstract, Provider Social History Tobacco Use Types [...] on filedocumented in this encounter Care Teams Spare Fixer Relationship Specialty Start Date End Date Gabriel Ag MD [address] [place] [phone] PCP - General Internal Medicine 09/03/15 documented as of this encounter
--- OUTSIDE RECORDS SUMMARY | 2025-04-02 13:13 | XMS_ITS | Encounter Summary ---
Author Organization [employer] Address 75 [facility] 7t [place] [address] Care Team Providers Care Lead Maintenance Technician Name Role Phone Carmen Mejia [facility] Primary Care Provider [phone] Encounter Details Date Type Department Care Team (Late st Contact Info) Description 05/05/2023 Abstract [facility] MEDICINE [address] [place] [address] Dia Gibson Social History Tobacco Use Types [...] Description 05/27/2025 9:00 AM EST Office Visit [facility] MED[facility] [address] [place] [address] Carmen Mejia FNP [address] [place] [address] documented as of this encounter Visit Diagnoses Not on filedocumented in this encounter Additional Health Concerns Assessment Noted Time PHQ-9 Depression Total Score: 24 023 9:04 AM EDT documented as of this encounter Care Teams Lead Maintenance Technician Relationship Specialty Start Date End Date Carmen Mejia FNP [address] [place] [address] PCP - General Family Medicine 03/18/21 documented as of this encounter
--- OUTSIDE RECORDS SUMMARY | 2025-04-02 13:13 | XMS_ITS | Encounter Summary ---
Author Organization [employer] Address 75 [facility] 7t [place] [address] Care Team Providers Care Dog License Officer Supervisor Name Role Phone Carmen Mejia [facility] Primary Care Provider Encounter Details Date Type Department Care Team (Late Contact Info) Description 07/08/2022 Orders Only [facility] MEDICINE [address] [place] [address] Shannon Sargent LPN Social History Tobacco Use [...] Description 05/27/2025 9:00 AM EST Office Visit [facility] [address] [place] [address] Carmen Mejia [facility] [address] [place] [address] documented as of this encounter Visit Diagnoses Not on filedocumented in this encounter Care Teams Dog License Officer Supervisor Relationship Specialty Start Date End Date Carmen Mejia FNP [address] [place] [address] PCP - General Family Medicine 03/18/21 documented as of this encounter
--- OUTSIDE RECORDS SUMMARY | 2025-04-02 13:13 | XMS_ITS | Encounter Summary ---
Author Organization [employer] Address 75 [facility] 7t [place] [address] Care Team Providers Care Sales Trainer Name Role Phone Roberto [facility] Primary Care Provider [phone] Reason for Visit * Reason Comments Med Refill Encounter Details Date Type Department Care Team (Late st Contact Info) Description 01/02/2024 Refill [facility] CHC MED & PEDS [address] [place], [place] [phone] Roberto, [facility] 230 [facility] [place] [address] Nontraumatic incomplete tear of rotator cuff, unspecified [...] Description 05/27/2025 9:00 AM EST Office Visit [facility] MEDICINE [address] [place] [address] Carmen Mejia FNP [address] [place] [address] documented as of this encounter Visit Diagnoses Diagnosis Nontraumatic incomplete tear of rotator cuff, unspecified laterality documented in this encounter Additional Health Concerns Assessment Noted Time PHQ-9 Depression Total Score: 0 11/09/19 24 9:34 AM EDT documented as of this encounter Care Teams Sales Trainer Relationship Specialty Start Date End Date Carmen Mejia FNP [address] [place] [address] PCP - General Family Medicine 03/18/21 documented as of this encounter
--- OUTSIDE RECORDS SUMMARY | 2025-04-02 13:13 | XMS_ITS | Encounter Summary ---
Author Organization [employer] Address 75 [facility] 7t [place] [address] Care Team Providers Care Account Executive Trainee Name Role Phone Carmen Mejia [facility] Primary Care Provider [phone] Reason for Visit * Reason Comments Med Refill Encounter Details Date Type Department Care Team (Late st Contact Info) Description 10/12/2023 Refill [facility] [address] [place], [place] [phone] Carmen Mejia [facility] 230 [place] [address] Primary insomnia Social History Tobacco Use Types [...] Description 05/27/2025 9:00 AM EST Office Visit [facility] [address] [place] [address] Carmen Mejia FNP [address] [place] [address] documented as of this encounter Visit Diagnoses Diagnosis Primary insomnia Persistent disorder of initiating or maintaining sleep documented in this encounter Additional Health Concerns Assessment Noted Time PHQ-9 Depression Total Score: 24 023 9:04 AM EDT documented as of this encounter Care Teams Account Executive Trainee Relationship Specialty Start Date End Date Carmen Mejia FNP [address] [place] [address] PCP - General Family Medicine 03/18/21 documented as of this encounter
--- OUTSIDE RECORDS SUMMARY | 2025-04-02 13:13 | XMS_ITS | Encounter Summary ---
Author Organization [employer] Address [address] [facility] 7[address] [place] [address] Care Team Providers Care Stage Settings Painter Name Role Phone Carmen Meija [facility] Primary Care Provider [phone] Reason for Visit * Reason Onset Date Comments Appointment Request 03/28/2025 Encounter Details Date Type Department Care Team ([facility] st Contact Info) Description 03/28/2025 Telephone [facility] 230 [place], [place] [phone] Carmen Mejia [facility] [address] [place] [address] Appointment Request Social History Tobacco Use Types Packs/Day Years [...] Telephone Encounter - Michelle Rincon RN - 03/29/2025 9:17 AM EDT Return TC to patient, no answer. L/M asking him to call back when he's available. * Telephone Encounter - Kolby Watkins - 03/28/2025 4:23 PM EDT Tc from pt requesting to r/s pain management apt. Contact pt at [phone] documented in this encounter Plan of Treatment Upcoming Encounters Date Type Department Care Team (Late st Contact Info) Description 05/27/2025 9:00 AM EST Office Visit [facility] [address] [place] [address] Carmen Mejia FNP [address] [place] [address] documented as of this encounter Visit Diagnoses Not on filedocumented in this encounter Additional Health Concerns Assessment Noted Time PHQ-9 Depression Total Score: 0 11/06/19 25 8:57 AM EDT documented as of this encounter Care Teams Stage Settings Painter Relationship Specialty Start Date End Date Carmen Mejia FNP [address] [place] [address] PCP - General Family Medicine 03/18/21 documented as of this encounter
== END 2025-04-02 11:23 | disposition home or self-care (01) ==
LOC: HO.HGS 11:00
PROVIDERS: PCP Registered Nurse; Visit Provider Surgery
DX: L72.0 Epidermal cyst (principal)
CPT/HCPCS: 99204

== ENCOUNTER → 2025-04-02 10:59 | Outpatient (BNVA) | payer OTHER, SELFPAY | PROVIDERS: PCP Registered Nurse; Visit Provider Surgery | DX: Z01.818 Encounter for other preprocedural examination (principal); L72.0 Epidermal cyst | CPT/HCPCS: 99202 ==

== ENCOUNTER 2025-04-04 10:41 | Outpatient (REF) | payer OTHER, SELFPAY | END 2025-04-04 10:42 | disposition home or self-care (01) | LOC: HO.BBR 10:41 | PROVIDERS: PCP Registered Nurse; Visit Provider Urology | DX: R71.8 Other abnormality of red blood cells (principal); Z79.890 Hormone replacement therapy | CPT/HCPCS: 85014; 85018; 99195 ==

== ENCOUNTER → 2025-04-09 23:59 | Outpatient (BNV) | payer OTHER, SELFPAY ==
--- NOTE | 2025-04-10 16:17 | MHC.OFFVIS ---
Intake Visit Reasons: Remote ICD check- [employer] Allergies avocado (AVOCADO) Allergy (Severe, Verified 04/02/25 11:08) HIVES/SOB lisinopril Allergy (Severe, Verified 04/02/25 11:08) Unknown passion fruit (PASSION FRUIT) Allergy (Severe, Verified 04/02/25 11:08) HIVES/SOB sacubitril (Entresto) Allergy (Severe, Verified 04/02/25 11:08) Unknown valsartan (Entresto) Allergy (Severe, Verified 04/02/25 11:08) Unknown soy (SOY) Allergy (Unknown, Verified 04/02/25 11:08) SWELLING acetaminophen (From Percocet) Adverse Reaction (Verified 04/02/25 11:08) Gastrointestinal Upset oxycodone (From Percocet) Adverse Reaction (Verified 04/02/25 11:08) Gastrointestinal Upset PFSH Medical History HFrEF (heart failure with reduced ejection fraction) ICD (implantable cardioverter-defibrillator) in place Nonischemic cardiomyopathy HTN (hypertension) Diabetes mellitus CAD (coronary artery disease) Surgical History History of carpal tunnel surgery H/O colonoscopy History of cardiac cath (~2017) Family History Father No problems noted. Mother No problems noted. Social History Household Members: Spouse Alcohol intake: former Patient Tobacco Use Status: Former Tobacco user Second Hand Smoke Exposure: No Office Procedures Cardiac Device Check Cardiac Device Check Details: Remote ICD report generated 04/09/2025. ICD function is adequate. Battery life is at 36% [id number] Cardiac Interrogation, implant defibrillator w/interim Procedure code (CPT) selection complete Assessment & Plan Assessment & Plan (1) ICD (implantable cardioverter-defibrillator) in place: Comment: implanted 2017-[employer]ronik Code(s): Z95.810 - Presence of automatic (implantable) cardiac defibrillator Category: Medical Plan: See above Coding Level of Care Code Procedure Only Diagnoses ICD (implantable cardioverter-defibrillator) in place Z95.810 CPT Codes Cardiac Device Check - Cardiac Device 13: [id number] Cardiac Interrogation, implant defibrillator w/interim ([id number])
== END ==
PROVIDERS: PCP Registered Nurse; Visit Provider Internal Medicine Cardiovascular Disease
DX: Z45.02 Encounter for adjustment and management of automatic implantable cardiac defibrillator (principal)
CPT/HCPCS: 93295

== ENCOUNTER → 2025-04-12 23:59 | Outpatient (BNV) | payer OTHER, SELFPAY ==
--- NOTE | 2025-04-15 15:50 | MHC.OFFVIS ---
Intake Visit Reasons: Remote HF monitoring- [employer] Allergies avocado (AVOCADO) Allergy (Severe, Verified 04/02/25 11:08) HIVES/SOB lisinopril Allergy (Severe, Verified 04/02/25 11:08) Unknown passion fruit (PASSION FRUIT) Allergy (Severe, Verified 04/02/25 11:08) HIVES/SOB sacubitril (Entresto) Allergy (Severe, Verified 04/02/25 11:08) Unknown valsartan (Entresto) Allergy (Severe, Verified 04/02/25 11:08) Unknown soy (SOY) Allergy (Unknown, Verified 04/02/25 11:08) SWELLING acetaminophen (From Percocet) Adverse Reaction (Verified 04/02/25 11:08) Gastrointestinal Upset oxycodone (From Percocet) Adverse Reaction (Verified 04/02/25 11:08) Gastrointestinal Upset PFSH Medical History HFrEF (heart failure with reduced ejection fraction) ICD (implantable cardioverter-defibrillator) in place Nonischemic cardiomyopathy HTN (hypertension) Diabetes mellitus CAD (coronary artery disease) Surgical History History of carpal tunnel surgery H/O colonoscopy History of cardiac cath (~2017) Family History Father No problems noted. Mother No problems noted. Social History Household Members: Spouse Alcohol intake: former Patient Tobacco Use Status: Former Tobacco user Second Hand Smoke Exposure: No Office Procedures Cardiac Device Check Cardiac Device Check Details: Remote heart failure report generated 04/12/2025. Heart failure parameters are stable [id number] Cardiac Device Interrogation, cardio physiologic monitor Procedure code (CPT) selection complete Assessment & Plan Assessment & Plan (1) ICD (implantable cardioverter-defibrillator) in place: Comment: implanted 2018-[employer]ik Code(s): Z95.810 - Presence of automatic (implantable) cardiac defibrillator Category: Medical Plan: See above Coding Level of Care Code Procedure Only Diagnoses ICD (implantable cardioverter-defibrillator) in place Z95.810 CPT Codes Cardiac Device Check - Cardiac Device 15: [id number] Cardiac Device Interrogation, cardio physiologic monitor ([id number])
== END ==
PROVIDERS: PCP Registered Nurse; Visit Provider Internal Medicine Cardiovascular Disease
DX: I50.9 Heart failure, unspecified (principal); Z95.810 Presence of automatic (implantable) cardiac defibrillator
CPT/HCPCS: 93297

== ENCOUNTER 2025-05-02 10:48 | Outpatient (REF) | payer OTHER, SELFPAY ==
--- OUTSIDE RECORDS SUMMARY | 2025-04-30 11:00 | XMS_ITS | Encounter Summary ---
Author Organization [employer] Address 75 [facility] 7t [place] [address] Care Team Providers Care Recyclable Materials Distributor Name Role Phone Carmen Mejia [facility] Primary Care Provider [phone] Encounter Details Date Type Department Care Team (Late st Contact Info) Description 04/30/2025 11:00 AM EST Office Visit [facility] MED[facility]INE [address] [place] [address] Melani Haider FNP [address] [place], [place] [phone] Traumatic incomplete tear of left rotator cuff, [...] of this encounter Progress Notes * Melani Haider, STEVEN - 04/30/2025 11:00 AM EST Subjective: Andry Lehman is a 60 y.o. male w/ PMH T2DM, CTS, ME, hypertension, HFrEF, CAD, defibrillator, and partial thickness of left rotator cuff tear, who presents to the office for - Chronic Pain Clinic Group visits. Initial Group visit: 12/27/23 Session: Self-care massage Chronic Pain History: Associated Diagnosis: partial thickness [...] normal. Problem List Items Addressed This Visit Mental Health Long-term current use of opiate analgesic Overview Medication: Tylenol w/ Codeine #4 (300-60mg) Q8H PRN Indication: Rotator cuff tear (not ideal surgical candidate) Tier III (Q6 month visits) Last LIFE AGENT Agreement: 09/25/24 Current Assessment & Plan Timeline: - 07/17/24: Group visit, Utox/pill count as expected - 09/25/24: Group Visit, utox/pill count as expected - 11/27/24: Group visit, utox/pill count as expected - 04/30/25: Group visit, utox/pill count as expected Relevant Orders POCT KINA-14 Urine Drug Screen (Completed) Musculoskeletal and Injuries Partial thickness rotator cuff tear - Primary Overview Chronic L shoulder pain and reduced mobility r/t incomplete tear of rotator cuff. Previously evaluated by several orthopedic surgeons who have all declined proceeding with surgery d/t patient comorbidities. Currently managing pain with Tylenol #4. Compliant with LIFE [employer]ENT agreement Followed by [facility] pain mnmt. Current Assessment & Plan -Good engagement and participation with Group Medical Visit model -Encouraged multifactorial approach to pain control including pharm and non- pharm modalities -UTOX and Pill count as expected Relevant Orders POCT KINA-14 Urine Drug Screen (Completed) Follow up: within 6 months for Group Chronic Pain Clinic. Follow up as scheduled with PCP, sooner as needed. * Ligia Titus RN - 04/30/2025 11:00 AM EST .LIFE AGENT graphotype operator: PDMP reviewed today. Last fill date: 04/01/25 (Tylenol #4 tid) count was (2), anticipated (0) to be remaining. .UTOX completed. Positive for (MOP), Negative for AMP, BAR, BUP, BZO, MANUEL, FTY, MDMA, MET, MTD, OXY, PCP, TCA, THC. UTOX as expected. documented in this encounter Miscellaneous Notes * Assessment & Plan Note - STEVEN Brunner - 04/30/2025 2:21 PM ESTAssociated Problem(s): Long-term current use of opiate analgesic Timeline: - 07/17/24: Group visit, Utox/pill count as expected - 09/25/24: Group Visit, utox/pill count as expected - 11/27/24: Group visit, utox/pill count as expected - 04/30/25: Group visit, utox/pill count as expected * Assessment & Plan Note - STEVEN Brunner - 04/30/2025 2:20 PM ESTAssociated Problem(s): Partial thickness rotator cuff tear -Good engagement and participation with Group Medical Visit model -Encouraged multifactorial approach to pain control including pharm and non- pharm modalities -UTOX and Pill count as expected documented in this encounter Plan of Treatment Upcoming Encounters Date Type Department Care Team (Late st Contact Info) Description 05/27/2025 9:00 AM EST Office Visit [address] [address] [address] [address] 07/30/2025 11:00 AM EST Office Visit [address] [address] documented as of this encounter Procedures Procedure Name Priority Date/Time Associated Diagnosis Comments POCT KINA-14 URINE DRUG SCREEN Routine 04/30/2025 11:59 AM EST Traumatic incomplete tear of left rotator cuff, subsequent encounter Long-term current use of opiate analgesic documented in this encounter Results * (ABNORMAL) POCT KINA-14 Urine Drug Screen (04/30/2025 11:59 AM EST) THC Negative Negative Cocaine Screen, Urine Negative Negative Opiate Screen, Urine Positive(A) Negative Comment:Rx Methamphetamine Screen Urine Negative Negative Amphetamine Screen, [...] obtained by clean catch procedure / Unknown 04/30/2025 11:59 AM EST Ligia Rodriguez RN - 04/30/2025 11:59 AM EST .UTOX cup Lot#[id number] Exp. 05/20/26 Internal Pass Control Melani HARRIS POINT OF [...] documented as of this encounter Care Teams Recyclable Materials Distributor Relationship Specialty Start Date End Date Carmen Mejia FNP [address] [place] [address] PCP - General Family Medicine 03/18/21 documented as of this encounter
--- OUTSIDE RECORDS SUMMARY | 2025-05-02 13:20 | XMS_ITS | Encounter Summary ---
Author Organization [employer] Address [address] [facility] 7t [place] [address] Care Team Providers Care Cloud Administrator Name Role Phone Carmen Mejia [facility] Primary Care Provider [phone] Encounter Details Date Type Department Care Team (Late Contact Info) Description 10/15/2022 Orders Only [facility] MED & PEDS [address] [place], [place] [phone] Ritika Mcgovern LPN Social History Tobacco Use [...] Description 05/27/2025 9:00 AM EST Office Visit [address] [address] Carmen Mejia [facility] [address] [place] [address] 07/30/2025 11:00 AM EST Office Visit [address] [address] documented as of this encounter Visit Diagnoses Not on filedocumented in this encounter Additional Health Concerns Assessment Noted Time PHQ-9 Depression Total Score: 0 10/15/19 23 8:58 AM EDT documented as of this encounter Care Teams Cloud Administrator Relationship Specialty Start Date End Date Carmen Mejia FNP [address] [place] [address] PCP - General Family Medicine 03/18/21 documented as of this encounter
--- OUTSIDE RECORDS SUMMARY | 2025-05-02 13:20 | XMS_ITS | Encounter Summary ---
Author Organization [employer] Address [address] [place] [address] 7t [place] [address] Care Team Providers Care Senior Relationship Manager Name Role Phone Roberto [facility] Primary Care Provider [phone] Reason for Visit * Reason Comments Med Refill Encounter Details Date Type Department Care Team (Late st Contact Info) Description 11/18/[address] [facility] MEDICINE [address] [place] [phone] [facility] [address] [place], [place] [phone] Primary insomnia; Type 2 diabetes mellitus with other specified complication, without long-term current use of insulin ([facility]) Social History Tobacco Use [...] Description 05/27/2025 9:00 AM EST Office Visit [facility] MEDICINE [address] [place] [phone] [facility] [address] [place] [address] 07/30/2025 11:00 AM EST Office Visit [facility] MEDICINE [address] [place] [address] documented as of this encounter Visit Diagnoses Diagnosis Primary insomnia Persistent disorder of initiating or maintaining sleep Type 2 diabetes mellitus with other specified complication, without long-term current use of insulin (HCC) documented in this encounter Additional Health Concerns Assessment Noted Time PHQ-9 Depression Total Score: 0 10/15/19 23 8:58 AM EDT documented as of this encounter Care Teams Senior Relationship Manager Relationship Specialty Start Date End Date Carmen Mejia FNP 230 [place] [address] PCP - General Family Medicine 03/18/21 documented as of this encounter
--- OUTSIDE RECORDS SUMMARY | 2025-05-02 13:20 | XMS_ITS | Encounter Summary ---
Author Organization [employer] Address 75 [facility] 7t [place] [address] Care Team Providers Care Kraft Digester Operator Name Role Phone Carmen Mejia [facility] Primary Care Provider [phone] Reason for Visit * Reason Onset Date Comments denture appt PA 11/02/2022 Encounter Details Date Type Department Care Team (Late st Contact Info) Description 11/02/2022 Telephone [facility] ADULT D[facility]AL [address] [place] [address] Bal Aponte, DMD [address] [place] [address] denture appt PA Social History Tobacco Use [...] - 11/02/2022 11:09 AM EDT Rep from [facility] called in checking in on the status [...] Description 05/27/2025 9:00 AM EST Office Visit [address] [address] Carmen Mejia FNP [address] [place] [address] 07/30/2025 11:00 AM EST Office Visit [address] [address] documented as of this encounter Visit Diagnoses Not on filedocumented in this encounter Additional Health Concerns Assessment Noted Time PHQ-9 Depression Total Score: 0 10/15/19 23 8:58 AM EDT documented as of this encounter Care Teams Kraft Digester Operator Relationship Specialty Start Date End Date Carmen Mejia FNP [address] [place] [address] PCP - General Family Medicine 03/18/21 documented as of this encounter
--- OUTSIDE RECORDS SUMMARY | 2025-05-02 13:20 | XMS_ITS | Encounter Summary ---
Author Organization [employer] Address 75 [facility] 7t [place] [address] Care Team Providers Care Chief Communications Officer Name Role Phone Roberto [facility] Primary Care Provider [phone] Reason for Visit * Reason Comments Med Refill Encounter Details Date Type Department Care Team (Late st Contact Info) Description 01/05/2025 Refill [facility] 230 [place], [place] [phone] [facility] 230 [place] [address] Diabetes mellitus type 2 with neurological manifestations [...] 9:00 AM EST Office Visit [facility] MEDICINE [address] [place] [address] Carmen Mejia FNP [address] [place] [address] 07/30/2025 11:00 AM EST Office Visit [address] [address] documented as of this encounter Visit Diagnoses Diagnosis Diabetes mellitus type 2 with neurological manifestations (HCC) documented in this encounter Additional Health Concerns Assessment Noted Time PHQ-9 Depression Total Score: 0 11/06/19 25 8:57 AM EDT documented as of this encounter Care Teams Chief Communications Officer Relationship Specialty Start Date End Date Carmen Mejia FNP [address] [place] [address] PCP - General Family Medicine 03/18/21 documented as of this encounter
--- OUTSIDE RECORDS SUMMARY | 2025-05-02 13:20 | XMS_ITS | Encounter Summary ---
Author Organization [employer] Address [address] [facility] 7t [place] [address] Care Team Providers Care Phosphoric Acid Operator Name Role Phone Carmen Mejia [facility] Primary Care Provider [phone] Reason for Visit * Reason Comments Med Refill Encounter Details Date Type Department Care Team (Late st Contact Info) Description 11/16/2022 Refill [facility] MEDICINE [address] [place] [address] Melani Haider FNP [address] [place], [place] [phone] Other chronic pain Social History Tobacco Use [...] Description 05/27/2025 9:00 AM EST Office Visit [facility] MEDICINE [address] [place] [address] RobertoCarmen martinez [facility] 230 [place] [address] 07/30/2025 11:00 AM EST Office Visit [facility] MEDICINE [address] [place] [address] documented as of this encounter Visit Diagnoses Diagnosis Other chronic pain documented in this encounter Additional Health Concerns Assessment Noted Time PHQ-9 Depression Total Score: 0 10/15/19 23 8:58 AM EDT documented as of this encounter Care Teams Phosphoric Acid Operator Relationship Specialty Start Date End Date Carmen Mejia FNP [address] [place] [address] PCP - General Family Medicine 03/18/21 documented as of this encounter
--- OUTSIDE RECORDS SUMMARY | 2025-05-02 13:20 | XMS_ITS | Encounter Summary ---
Author Organization [employer] Address 75 [facility] 7t [place] [address] Care Team Providers Care Label Tacker Name Role Phone Carmen Mejia [facility] Primary Care Provider [phone] Encounter Details Date Type Department Care Team (Late Contact Info) Description 03/07/2023 Orders Only [facility] MED & PEDS [address] [place] [address] Shannon Sargent LPN Social History Tobacco Use [...] 05/27/2025 9:00 AM EST Office Visit [facility] MEDICINE [address] [place] [address] [facility] [address] [place] [address] 07/30/2025 11:00 AM EST Office Visit [facility] MEDICINE [address] [place] [address] documented as of this encounter Visit Diagnoses Not on filedocumented in this encounter Additional Health Concerns Assessment Noted Time PHQ-9 Depression Total Score: 0 01/14/20 23 9:12 AM EDT documented as of this encounter Care Teams Label Tacker Relationship Specialty Start Date End Date [place], STEVEN Morales [address] [place] [address] PCP - General Family Medicine 03/18/21 documented as of this encounter
--- OUTSIDE RECORDS SUMMARY | 2025-05-02 13:21 | XMS_ITS | Encounter Summary ---
Author Organization [employer] Address 75 [facility] 7t [place] [address] Care Team Providers Care Skein Yarn Dyer Name Role Phone Carmen Mejia [employer] SET UP OPERATOR Primary Care Provider [phone] Encounter Details Date Type Department Care Team (Late Contact Info) Description 07/07/2022 Orders Only [facility] CHC MED & PEDS [address] [place], [place] [phone] Ritika Mcgovern LPN Social History Tobacco Use [...] Description 05/27/2025 9:00 AM EST Office Visit [facility] MEDICINE [address] [place] [address] Carmen Mejia FNP 230 [place] [address] 07/30/2025 11:00 AM EST Office Visit [address] [address] documented as of this encounter Visit Diagnoses Not on filedocumented in this encounter Care Teams Skein Yarn Dyer Relationship Specialty Start Date End Date Carmen Mejia FNP [address] [place] [address] PCP - General Family Medicine 03/18/21 documented as of this encounter
--- OUTSIDE RECORDS SUMMARY | 2025-05-02 13:21 | XMS_ITS | Encounter Summary ---
Author Organization [employer] Address 75 [facility] 7t [place] [address] Care Team Providers Care Campaign Manager Name Role Phone Carmen Mejia [facility] Primary Care Provider [phone] Reason for Visit * Reason Comments Med Refill Encounter Details Date Type Department Care Team (Late st Contact Info) Description 01/08/2024 Refill [facility] MED[facility]INE [address] [place], [place] [phone] [facility] 230 [place] [address] Moderate persistent asthma without complication Social History [...] 9:00 AM EST Office Visit [facility] MEDICINE [address] [place] [address] Carmen Mejia FNP [address] [place] [address] 07/30/2025 11:00 AM EST Office Visit [address] [address] documented as of this encounter Visit Diagnoses Diagnosis Moderate persistent asthma without complication documented in this encounter Additional Health Concerns Assessment Noted Time PHQ-9 Depression Total Score: 0 11/09/19 24 9:34 AM EDT documented as of this encounter Care Teams Campaign Manager Relationship Specialty Start Date End Date Carmen Mejia FNP [address] [place] [address] PCP - General Family Medicine 03/18/21 documented as of this encounter
--- OUTSIDE RECORDS SUMMARY | 2025-05-02 13:21 | XMS_ITS | Encounter Summary ---
Author Organization [employer] Address 75 [facility] 7t [place] [address] Care Team Providers Care Management Services Technician Name Role Phone Carmen Mejia [facility] Primary Care Provider [phone] Encounter Details Date Type Department Care Team (Latest Contact Info) Description 04/30/2025 Travel Social History Tobacco Use Types Packs/Day [...] Description 05/27/2025 9:00 AM EST Office Visit [address] [address] Carmen Mejia [address] [address] 07/30/2025 11:00 AM EST Office Visit [address] [address] documented as of this encounter Visit Diagnoses Not on filedocumented in this encounter Additional Health Concerns Assessment Noted Time PHQ-9 Depression Total Score: 0 11/06/19 25 8:57 AM EDT documented as of this encounter Care Teams Management Services Technician Relationship Specialty Start Date End Date Carmen Mejia FNP [address] [place] [address] PCP - General Family Medicine 03/18/21 documented as of this encounter
--- OUTSIDE RECORDS SUMMARY | 2025-05-02 13:21 | XMS_ITS | Encounter Summary ---
Author Organization [employer] Address 75 [facility] 7t [place] [address] Care Team Providers Care Dietetics Director Name Role Phone Roberto [facility] Primary Care Provider Reason for Visit * Reason Comments Med Refill Encounter Details Date Type Department Care Team (Late st Contact Info) Description 01/02/2024 Refill [facility] [address] [place], [place] [phone] Roberto, [facility] [address] [facility] [place] [address] Nontraumatic incomplete tear of rotator cuff, unspecified [...] Description 05/27/2025 9:00 AM EST Office Visit [address] [address] Carmen Mejia FNP [address] [place] [phone] 07/30/2025 11:00 AM EST Office Visit [address] [address] documented as of this encounter Visit Diagnoses Diagnosis Nontraumatic incomplete tear of rotator cuff, unspecified laterality documented in this encounter Additional Health Concerns Assessment Noted Time PHQ-9 Depression Total Score: 0 11/09/19 24 9:34 AM EDT documented as of this encounter Care Teams Dietetics Director Relationship Specialty Start Date End Date Carmen Mejia FNP [address] [place] [phone] PCP - General Family Medicine 03/18/21 documented as of this encounter
--- OUTSIDE RECORDS SUMMARY | 2025-05-02 13:21 | XMS_ITS | Clinical Summary ---
Author Organization [employer] Address [address] [facility] 7t [place] [address] Care Team Providers Care Horticultural Farm Manager Name Role Phone Roberto [facility] Primary Care Provider [phone] Allergies Active Allergy Reactions Criticality Noted Date [...] 1 TABLET BY MOUTH EVERY MORNING (CALL [phone] FOR APPOINTMENT (Dr. Pillai)) 023 Active carvedilol (Coreg) 25 MG tablet TAKE 1 TABLET BY MOUTH TWICE DAILY IN THE MORNING AND IN THE EVENING WITH FOOD 023 Active atorvastatin (Lipitor) 40 MG tablet Take 40 mg by mouth at bedtime. 023 Active Aspirin Low Dose 81 MG EC tablet TAKE 1 TABLET BY MOUTH EVERY MORNING (CALL [phone] FOR APPOINTMENT (Dr. 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 (HCC) TEST BLOOD SUGAR 3 TIMES DAILY 100 each 11 025 Active Alcohol Swabs (Alcohol Prep) padsIndications:D iabetes mellitus type 2 with neurological manifestations (HCC) Use one pad each to prep skin prior to injection as directed 100 each 11 025 Active Lancets 33G miscIndications:D iabetes mellitus type 2 with neurological manifestations (HCC) Use as directed to check blood sugar four times daily 100 each 3 025 Active Blood Glucose Monitoring Suppl (GNP Easy Touch Glucose Meter) deviceIndications :Diabetes mellitus type 2 with neurological manifestations (HCC) Use as directed to check blood sugar four times daily 1 each 025 Active glucose blood (FREESTYLE LITE) test stripIndications: Diabetes mellitus type 2 with neurological manifestations (HCC) TEST BLOOD SUGAR THREE TIMES DAILY 100 each 11 025 Active budesonide-formot jaime (Symbicort) 160-4.5 MCG/ACT inhalerIndication s:Chronic obstructive pulmonary disease, unspecified COPD type (CMS/HCC) (HCC) INHALE 2 PUFFS BY MOUTH TWICE DAILY IN THE MORNING AND IN THE EVENING RINSE MOUTH AFTER USING. 10.2 g Active omeprazole (PriLOSEC) [address] capsuleIndication s:Dysphagia, unspecified type TAKE 1 CAPSULE BY MOUTH TWICE DAILY 60 capsule Active QUEtiapine (SEROquel) 50 MG tabletIndications :Type 2 diabetes mellitus with other specified complication, without long-term current use of insulin ([facility]) TAKE 2 TABLETS BY MOUTH EVERY DAY AT BEDTIME 60 tablet Active Jardiance 25 MGIndications:Typ e 2 diabetes mellitus with other specified complication, without long-term current use of insulin ([facility]) TAKE 1 TABLET BY MOUTH EVERY MORNING 30 tablet Active citalopram (CeleXA) 20 MG tabletIndications :Mood disorder (CMS/HCC) TAKE 1 TABLET BY MOUTH EVERY MORNING 30 tablet Active citalopram (CeleXA) 10 MG tabletIndications :Mood disorder (CMS/HCC) TAKE 1 TABLET BY MOUTH EVERY MORNING 30 tablet 025 Active cetirizine (ZyrTEC) 10 MG tabletIndications :Moderate persistent asthma without complication TAKE 1 TABLET BY MOUTH EVERY MORNING 30 tablet 025 Active Multiple Vitamin (Multivitamin) tabletIndications :Diabetes mellitus type 2 with neurological manifestations ([facility]) TAKE 1 TABLET BY MOUTH EVERY MORNING 30 tablet 025 Active cyanocobalamin (Vitamin B-12) 1000 MCG tablet TAKE 1 TABLET BY MOUTH EVERY MORNING 30 tablet 025 Active Tirzepatide (Mounjaro) 7.5 MG/0.5ML solution auto-injectorIndi cations:Type 2 diabetes mellitus with hyperglycemia, without long-term current use of insulin ([facility]) Inject 7.5 mg under the skin 1 (one) time per week. 2 mL Active metFORMIN (Glucophage) 1000 MG tabletIndications :Diabetes mellitus type 2 with neurological manifestations ([facility]) TAKE 1 TABLET BY MOUTH TWICE DAILY IN THE MORNING AND IN THE EVENING WITH MEALS 180 tablet 025 Active zolpidem (Ambien) 5 MG tabletIndications :Primary insomnia TAKE 1 TABLET BY MOUTH AT BEDTIME 30 tablet 1 025 Active acetaminophen-cod eine (Tylenol w/ Codeine #4) 300-60 MG tabletIndications :Nontraumatic incomplete tear of rotator cuff, unspecified laterality TAKE 1 TABLET BY MOUTH EVERY 8 HOURS NEEDED FOR MODERATE PAIN 84 tablet 05/02/20 25 12:04 PM EST 025 Active zolpidem (Ambien) 5 MG tabletIndications [...] candidate) Tier III (Q6 month visits) Last [employer]ING Agreement: 09/25/24 Assessment & Plan (04/30/2025 2:21 PM EST): Timeline: - 07/17/24: Group visit, Utox/pill count as expected - 09/25/24: Group Visit, utox/pill count as expected - 11/27/24: Group visit, utox/pill count as expected - 04/30/25: Group visit, utox/pill count as expected Assessment & Plan (11/29/2024 3:16 PM EDT): Timeline: - 11/17/23: PIPE [employer]TER [employer]ING Agreement, Utox/pill count as expected - 12/13/23: [...] (09/25/2024 2:43 PM EDT): Timeline: - 11/17/23: PIPE [employer]TER W[employer]ING Agreement, Utox/pill count as expected - 12/13/23: [...] (07/24/2024 3:07 PM EST): Timeline: - 11/17/23: PIPE FITTER WELDING Agreement, Utox/pill count as expected - 12/13/23: NCNS to Group visit - 12/27/23: Initial Group Visit, Utox/pill count as expected - 01/31/24: Group visit, Utox/pill count as expected - 03/13/24: Group visit, Utox/pill count as expected - 05/15/24: Group visit, Utox/pill count as expected - 07/17/24: Group visit, Utox/pill count as expected Assessment & Plan (05/15/2024 6:31 PM EST): Timeline: - 11/17/23: PIPE [employer]TER WELDING Agreement, Utox/pill count as expected - 12/13/23: [...] 07/20/2022 Overview (07/20/2022): Followed by cardiology at [facility]. Hx of reduced ejection fraction that has [...] managing pain with Tylenol #4. Compliant with [employer] agreement Followed by [facility] pain mnmt. Assessment & Plan (04/30/2025 2:20 PM EST): -Good engagement and participation with Group Medical Visit model -Encouraged multifactorial approach to pain control including pharm and non- pharm modalities -UTOX and Pill count as expected Assessment & Plan (11/29/2024 3:16 PM EDT): [...] Healthcare maintenance 07/20/2022 Overview (04/28/2023): CRC: 2016 [facility] 10 year f/u PSA: 07/2022 0.57 HIV: Negative 2019 Hepatitis: Negative HCV 2019 Declines covid vaccine Assessment & Plan (01/13/2023 10:32 AM EDT): - Will request [facility] colonoscopy records Carpal tunnel syndrome on both sides 07/20/2022 Overview (07/20/2022): EMG 12/2021-bilateral moderate-severe ulnar and median neuropathy and bilateral anahy guber anastamosis Seen by [facility] Dr. Nixon 04/2022; surgical candidate would require [...] Essential hypertension 07/14/2017 Overview (10/15/2022): Followed by [facility] cardiology Hydralazine 50mg b.i.d Carvediol 25mg b.i.d [...] Erectile dysfunction 12/04/2015 Overview (07/20/2022): Followed by [facility] urology and receives SQ testosterone Hypogonadism male 12/04/2015 Mixed hyperlipidemia 12/04/2015 Overview (10/15/2022): Atorvastatin 40mg daily Assessment & Plan (10/15/2022 3:42 PM EDT): Continue current regimen Old [place] (myocardial infarction) 12/04/2015 Encounters * This document contains information received from the source organization and may not represent a complete record from that organization. Date Type Department Care Team Description 04/30/2025 11:00 AM EST Office Visit [facility] [address] [place] [address] Melani Haider FNP Traumatic incomplete tear of left rotator cuff, subsequent encounter (Primary Dx); Long-term current use of opiate analgesic 04/30/2025 Travel 04/29/2025 Refill [facility] [address] [place] [address] Carie Mcmillan MD Nontraumatic incomplete tear of rotator cuff, unspecified laterality 04/23/2025 Telephone [facility] [address] [place] [address] Carmen Mejia FNP Appointment Request 04/14/2025 Refill [facility] [address] [place] [address] Ritika Boles DO Primary insomnia 03/28/2025 Telephone [facility] [address] [place] [address] Carmen Mejia FNP Appointment Request 03/22/2025 Refill [facility] [address] [place] [address] Carmen Mejia FNP Nontraumatic incomplete tear of rotator cuff, unspecified laterality 03/11/2025 Refill [facility] [address] [place] [address] Caremn Mejia FNP Diabetes mellitus type 2 with neurological manifestations ([facility]) 02/25/2025 9:00 AM EDT Office Visit [facility] [address] [place] [address] Carmen Mejia FNP Type 2 diabetes mellitus with hyperglycemia, without long-term current use of insulin ([facility]) (Primary Dx); Erythematous skin nodule; Osteoarthritis of left knee, unspecified osteoarthritis type 02/25/2025 Telephone [facility] [address] [place] [address] Carmen Mejia FNP Referral 02/25/2025 Travel 02/22/2025 Telephone [facility] [address] [place] [address] Carmen Mejia FNP Chart Prep 02/20/2025 Refill [facility] [address] [place] [address] Carmen Mejia FNP Nontraumatic incomplete tear of rotator cuff, unspecified laterality 02/15/2025 Patient Outreach [facility] [address] [place] [address] Carmen Mejia FNP Pre-visit Planning ([facility] was already completed) 02/14/2025 Refill [facility] [address] [place] [address] Carmen Mejia FNP Primary insomnia 02/07/2025 Refill [facility] [address] [place] [address] Carmen Mejia FNP Moderate persistent asthma without complication; Diabetes mellitus type 2 with neurological manifestations ([facility]) 01/30/2025 Orders Only GENERIC EXTERNAL DATA DEPARTMENT [...] EST Office Visit [facility] [address] [place] [address] [facility] [address] [place] [address] 07/30/2025 11:00 AM EST Office Visit [facility] [address] [place] [address] Health Maintenance Due Date Last Done Comments CT Colonography 1964 Dental Oral Exam 1964 Dental Prophylaxis 1964 Dental X-Ray: Bitewings 1964 Dental X-Ray: Full Mouth 1964 FIT DNA/Cologuard 1964 FIT 1964 FOBT 1964 Sigmoidoscopy 1964 Alcohol/Substance Use Screening 1976 RSV Patients and Patients Aged 60 years or older (1 - Risk 50-74 years 1-dose series) 2014 COVID-19 Vaccine ( season) 2025 06/01/2024, 05/03/2023, 04/15/2022, Additional history exists Influenza Vaccine (#1) 2025 [...] Pneumococcal Vaccine: 50+ Years Completed 07/20/2022, 02/17/2016 HIB Vaccines Aged Out No longer eligi [...] encounter Long-term current use of opiate analgesic POCT GLYCATED HEMOGLOBIN, TOTAL Routine 02/25/2025 8:53 [...] EDT CBC Routine 01/30/2025 10:22 AM EDT ALBUMIN, RANDOM URINE W/CREATININE Routine [...] to Health Maintenance Results * (ABNORMAL) POCT KINA-14 Urine Drug [...] procedure / Unknown 04/30/2025 11:59 AM EST Narrative Ligia Titus RN - 04/30/2025 11:59 AM EST .UTOX cup Lot#[id number] Exp. 05/20/26 Internal Pass Control Melani Haider [facility] POINT OF CARE TEST ENTER/EDIT ORDERABLES Final Result * (ABNORMAL) POCT Hgb A1c (02/25/2025 8:53 AM EDT) Hemoglobin A1C 8.4(A) 4.0 - 5.7 % Blood 02/25/2025 8:53 AM EDT [facility] POINT OF CARE TEST ENTER/EDIT ORDERABLES Final Result * (ABNORMAL) POCT Glucose (02/25/2025 8:51 AM EDT) Pathologist [facility] Glucose Blood, POC 231(A) 60 - 200 mg/dL Blood Capillary blood specimen / Unknown 02/25/2025 8:51 AM EDT [facility] MEDICAL RECORDS SUPERVISOR POINT OF CARE TEST ENTER/EDIT ORDERABLES Final Result * (ABNORMAL) CBC (01/30/2025 10:22 AM EDT) [facility] White Blood Count 10.9(H) 4.8 - 10.8 X10*3/uL [facility] Red Blood Count 6.61(H) 4.60 - 5.80 X10*6/uL [facility] Hemoglobin 14.9 14.0 - 18.0 g/dl [facility] Hematocrit 49.7 42.0 - 52.0 % [facility] Mean Corpuscular Volume 75.2(L) 80.0 - 98.0 fL [facility] Mean Corpuscular Hemoglobin 22.5(L) 27.0 - 33.0 pg [facility] Mean Corpuscular HGB Conc 30.0(L) 31.0 - 36.0 g/dl [facility] Red Cell Distribution Width 20.6(H) 11.0 - 16.0 % [facility] Platelet Count 278 160 - 400 X10*3/uL [facility] Mean Platelet Volume 10.9 9.4 - 12.4 fL [facility] NRBC Pct Auto 0.0 0.0 - 0.2 /100WBC [facility] NRBC Abs Auto 0.000 0.0 - 0.012 X10*3/uL [facility] 01/30/2025 10:2 2 AM EDT 01/30/2025 10:22 AM EDT Generic External Data Provider LAB BLOOD ORDERAB LES Final Result [facility] [address] [place] [phone] * Testosterone, Total, males (Adult), IA (01/30/2025 10:22 AM EDT) Testosterone, Total 487 250 - 1100 ng/dL [facility] Comment:For additional infor frances, please refer tohttp://education.E[employer].Kicknote.com/faq/MaxedSdbjvlxrdmvtVRKSZNSRC124(This link is being provided for informational/educational purposes only.)This test was developed and its analytical performancecharacteristics have been determined by [employer] [place], [place]. It hasnot been cleared or approved by the U.S. Food and DrugAdministration. This assay has been validated pursuantto the CLIA regulations and is used for clinicalpurposes.THIS TEST WAS PERFORMED AT:[employer] [place] [address]ZZHZCAJMEGHAN MARION MD,PHD 01/30/2025 10:2 2 AM EDT 01/30/2025 10:22 AM EDT us Generic External Data Provider LAB BLOOD ORDERAB LES Final Result Performing Organization Address City/[facility]/ZIP Co de Phone Number [facility] [address] [place] [phone] * PSA,Total (01/30/2025 10:22 AM EDT) Prostate Specific Antigen 0.37 <0.05 - 4.0 ng/mL [facility] Comment:PSA methodology: Abb sandhya Alinity i ChemiluminescentMicroparticle Immunoassay (CMIA) 01/30/2025 10:2 2 AM EDT 01/30/2025 10:22 AM EDT us Generic External Data Provider LAB BLOOD ORDERAB LES Final Result Performing Organization Address [facility]/ZIP Co de Phone Number [facility] [address] [place] [phone] * (ABNORMAL) Albumin, Random Urine W/Creatinine (11/26/2024 10:47 AM EDT) Creatinine, Urine 43.29 mg/dL [facility] Microalbumin Urine 53.0 mg/L [facility] Microalbum Creatinine Ratio Ur 122.4(H) <30 ug/mg cr [facility] Comment:Albumin/Creatinine R atio Reference Ranges: Normal: < 30 ug/mg creatinine Microalbuminuria: 30 - 300 ug/mg creatinineClinical Albuminuria: > 300 ug/mg creatinine Urine 11/26/2024 10:4 7 AM EDT 11/26/2024 1:02 PM EDT [facility] LAB URINE ORDERABLES Final Re sult [facility] [address] [place] [phone] * Lipid Panel, Standard (11/26/2024 10:47 AM EDT) Triglycerides 125 <150 mg/dL [facility] Comment:Desirable Triglyceri de: less than 150 mg/dLBorderline High Triglyceride 150-199 mg/dLHigh Triglyceride: 200-499 mg/dLVery High Triglyceride: greater than or equal to 5OO mg/dL Cholesterol 127 <200 mg/dL [facility] Comment:Desirable Cholestero l: less than 200 mg/dLBorderline High Cholesterol: 200-239 mg/dLHigh Cholesterol: greater than 239 mg/dL LDL Cholesterol Calculated 59 <100 mg/dL [facility] Comment:Desirable LDL: less than 100 mg/dLNear Optimal/Above Optimal LDL: 110- 129 mg/dLBorderline High LDL: 130-159 mg/dLHigh LDL: 160-189 mg/dLVery High LDL: greater than or equal to 190 mg/dL HDL Cholesterol 43 >40 mg/dL [facility] Comment:Desirable HDL: great er than 40 mg/dL Note: This HDL assay may give artificially low results in patients with liver disease. Blood Venous blood specimen / Unknown 11/26/2024 10:47 AM EDT 11/26/2024 1:17 PM EDT [facility] MEDICAL RECORDS SUPERVISOR LAB BLOOD ORDERABLES Final Re sult [facility] [address] [place] [phone] * HEPATITIS C AB W/REFL TO HCV RNA, QN, PCR (02/27/2020 9:28 AM EDT) HEPATITIS C ANTIBODY NON-REACT LAYNE NON-REACT LAYNE [facility] INDEX 0.02 <1.00 [facility] Comment: HCV antibody was non-reactive. There is no laboratory evidence of HCV infection. In most cases, no further action is required. However, if recent HCV exposure is suspected, a test for HCV RNA (test code 80246) is suggested. For additional information please refer to http://education.[employer] Medical/faq/DKT55f5 (This link is being provided for informational/ educational purposes only.) 02/27/2020 9:28 AM EDT Marcos Robles MEDICAL RECORDS SUPERVISOR HISTORICAL/NON ORDERABLE LA BS Final Result Performing Organization Address City/State/[facility] Co de Phone Number [facility] [address] * HIV 1/2 ANTIGEN/ANTIBODY,FOURTH GENERATION W/RFL (02/27/2020 9:28 AM EDT) HIV-1/2 ANTIGEN AND ANTIBODIES, 4TH GENERATION W/ REFLEX NON-REACT LAYNE NON-REACT LAYNE [facility] Comment: HIV-1 antigen and [...] purpose. For additional information please refer to http://education.Echologics.Kicknote.com/faq/CID099 (This link is being provided for informational/ educational purposes only.) The performance of this assay has not been clinically validated in patients less than 2 years old. 02/27/2020 9:28 AM EDT Marcos Robles MEDICAL RECORDS SUPERVISOR LAB BLOOD ORDERABLES Final Result [facility] [address] * (ABNORMAL) Colonoscopy (06/20/2015) Colonoscopy Abnormal( A) Normal Comment:polyps-5 year follow up Historical Provider MD HEALTH MAINTENANCE Final Result from Last 3 Months or Most Recently Relevant to Health Maintenance Insurance [id number] < [address] [place] [id number] Care Teams Horticultural Farm Manager Relationship Specialty Start Date End Date Carmen Mejia FNP [address] [place] [phone] PCP - General Family Medicine 03/18/21
--- OUTSIDE RECORDS SUMMARY | 2025-05-02 13:21 | XMS_ITS | Encounter Summary ---
Author Organization [employer] Address [address] [facility] 7t [place] [address] Care Team Providers Care Cook Fast Food Name Role Phone Carmen Mejia [facility] Primary Care Provider [phone] Reason for Visit * Reason Comments Med Refill Encounter Details Date Type Department Care Team (Late st Contact Info) Description 04/29/2025 Refill [facility] [address] [place], [place] [phone] Carie Mcmillan MD [address] [place] [address] Nontraumatic incomplete tear of rotator cuff, unspecified [...] 05/27/2025 9:00 AM EST Office Visit [facility] [address] [place] [phone] Carmen Mejia FNP [address] [place] [address] 07/30/2025 11:00 AM EST Office Visit [address] [address] documented as of this encounter Visit Diagnoses Diagnosis Nontraumatic incomplete tear of rotator cuff, unspecified laterality documented in this encounter Additional Health Concerns Assessment Noted Time PHQ-9 Depression Total Score: 0 11/06/19 25 8:57 AM EDT documented as of this encounter Care Teams Cook Fast Food Relationship Specialty Start Date End Date Carmen Mejia FNP [address] [place] [phone] PCP - General Family Medicine 03/18/21 documented as of this encounter
--- OUTSIDE RECORDS SUMMARY | 2025-05-02 13:21 | XMS_ITS | Encounter Summary ---
Author Organization [employer] Address [address] [place] [address] 7t [place] [address] Care Team Providers Care Senior Geotechnical Engineer Name Role Phone Carmen Mejia [facility] Primary Care Provider Encounter Details Date Type Department Care Team (Late st Contact Info) Description 07/08/2022 Orders Only [address] [address] Shannon Sargent LPN Social History Tobacco Use [...] Description 05/27/2025 9:00 AM EST Office Visit [address] [address] Carmen Mejia FNP [address] [place] [phone] 07/30/2025 11:00 AM EST Office Visit [address] [address] documented as of this encounter Visit Diagnoses Not on filedocumented in this encounter Care Teams Senior Geotechnical Engineer Relationship Specialty Start Date End Date Carmen Mejia FNP [address] [place] [phone] PCP - General Family Medicine 03/18/21 documented as of this encounter
--- OUTSIDE RECORDS SUMMARY | 2025-05-02 13:21 | XMS_ITS | Encounter Summary ---
Author Organization [employer] Address [address] [facility] 7t [place] [address] Care Team Providers Care Content Strategy Lead Name Role Phone Carmen Mejia [facility] Primary Care Provider [phone] Reason for Visit * Reason Comments Med Refill Encounter Details Date Type Department Care Team (Late st Contact Info) Description 10/12/2023 Refill [facility] [address] [place], [place] [phone] Carmen Mejia [facility] [address] [place] [address] Primary insomnia Social History Tobacco Use Types [...] Description 05/27/2025 9:00 AM EST Office Visit [address] [address] Carmen Mejia FNP [address] [place] [phone] 07/30/2025 11:00 AM EST Office Visit [address] [address] documented as of this encounter Visit Diagnoses Diagnosis Primary insomnia Persistent disorder of initiating or maintaining sleep documented in this encounter Additional Health Concerns Assessment Noted Time PHQ-9 Depression Total Score: 24 023 9:04 AM EDT documented as of this encounter Care Teams Content Strategy Lead Relationship Specialty Start Date End Date Carmen Mejia FNP [address] [place] [phone] PCP - General Family Medicine 03/18/21 documented as of this encounter
--- OUTSIDE RECORDS SUMMARY | 2025-05-02 13:21 | XMS_ITS | Encounter Summary ---
Author Organization [employer] Address [address] [facility] 7t [place] [address] Care Team Providers Care Wine Maker Name Role Phone Carmen Mejia [facility] Primary Care Provider Encounter Details Date Type Department Care Team (Late st Contact Info) Description 05/05/2023 Abstract [facility] [address] [place] [address] Dia Gibson Social History Tobacco Use Types [...] Description 05/27/2025 9:00 AM EST Office Visit [facility] [address] [place] [address] Carmen Mejia FNP [address] [place] [address] 07/30/2025 11:00 AM EST Office Visit [address] [address] documented as of this encounter Visit Diagnoses Not on filedocumented in this encounter Additional Health Concerns Assessment Noted Time PHQ-9 Depression Total Score: 24 023 9:04 AM EDT documented as of this encounter Care Teams Wine Maker Relationship Specialty Start Date End Date Carmen Mejia FNP [address] [place] [address] PCP - General Family Medicine 03/18/21 documented as of this encounter
--- OUTSIDE RECORDS SUMMARY | 2025-05-02 13:21 | XMS_ITS | Encounter Summary ---
Author Organization [employer] Address [address] [facility] 7t [place] [address] Care Team Providers Care Aircraft Seat Upholsterer Name Role Phone Roberto [facility] Primary Care Provider [phone] Reason for Visit * Reason Comments Med Refill Encounter Details Date Type Department Care Team (Late st Contact Info) Description 01/03/2024 Refill [facility] [address] [place], [place] [phone] Roberto, [facility] [address] [place] [address] Nontraumatic incomplete tear of rotator cuff, unspecified [...] Description 05/27/2025 9:00 AM EST Office Visit [address] [address] Carmen Mejia FNP [address] [place] [address] 07/30/2025 11:00 AM EST Office Visit [address] [address] documented as of this encounter Visit Diagnoses Diagnosis Nontraumatic incomplete tear of rotator cuff, unspecified laterality documented in this encounter Additional Health Concerns Assessment Noted Time PHQ-9 Depression Total Score: 0 11/09/19 24 9:34 AM EDT documented as of this encounter Care Teams Aircraft Seat Upholsterer Relationship Specialty Start Date End Date Carmen Mejia FNP [address] [place] [address] PCP - General Family Medicine 03/18/21 documented as of this encounter
--- OUTSIDE RECORDS SUMMARY | 2025-05-02 13:21 | XMS_ITS | Encounter Summary ---
Author Organization [employer] Address [address] [facility] 7t [place] [address] Care Team Providers Care Roto Mixer Operator Name Role Phone Carmen Mejia [facility] Primary Care Provider [phone] Encounter Details Date Type Department Care Team (Late st Contact Info) Description 06/11/2022 Orders Only [facility] & PEDS [address] [place] [address] Ritika Mcgovern LPN Social History Tobacco Use [...] 05/27/2025 9:00 AM EST Office Visit [facility] [address] [place] [address] Carmen Mejia [facility] 230 [place] [address] 07/30/2025 11:00 AM EST Office Visit [facility] [address] [place] [address] documented as of this encounter Visit Diagnoses Not on filedocumented in this encounter Care Teams Roto Mixer Operator Relationship Specialty Start Date End Date Carmen Mejia FNP [address] [place] [address] PCP - General Family Medicine 03/18/21 documented as of this encounter
== END 2025-05-02 10:49 | disposition home or self-care (01) ==
LOC: HO.BBR 10:48
PROVIDERS: PCP Registered Nurse; Visit Provider Urology
DX: Z79.890 Hormone replacement therapy (principal)
CPT/HCPCS: 85014; 85018; 99195

== ENCOUNTER 2025-05-13 11:12 | Outpatient (REF) | payer OTHER, SELFPAY | END 2025-05-13 11:13 | disposition home or self-care (01) | LOC: HO.LNP 11:12 | PROVIDERS: PCP Registered Nurse; Visit Provider Surgery | DX: L72.3 Sebaceous cyst (principal) | CPT/HCPCS: 11422; 88304 ==

== ENCOUNTER 2025-05-13 11:12 | Outpatient (AMB) | payer OTHER, SELFPAY ==
--- NOTE | 2025-05-13 11:22 | A.OFFVIS_ITS ---
Vital Signs 3 05/13/25 11:25 Height 5 ft 8 in Weight 205 lb BMI 31.2 BP 123/60 Blood Pressure Location Rt radial Position Sitting Pulse 76 Intake Visit Reasons: skin nodule Intake Note: Patient is seen for office procedure: Excision of right of midline posterior neck cyst. Pt c/o; reports cyst starting to get bigger. Cook Mess Required: No Accompanied by: Self / Same As Patient Allergies avocado (AVOCADO) Allergy (Severe, Verified 05/13/25 11:37) HIVES/SOB lisinopril Allergy (Severe, Verified 05/13/25 11:37) Unknown passion fruit (PASSION FRUIT) Allergy (Severe, Verified 05/13/25 11:37) HIVES/SOB sacubitril (Entresto) Allergy (Severe, Verified 05/13/25 11:37) Unknown valsartan (Entresto) Allergy (Severe, Verified 05/13/25 11:37) Unknown soy (SOY) Allergy (Unknown, Verified 05/13/25 11:37) SWELLING acetaminophen (From Percocet) Adverse Reaction (Verified 05/13/25 11:37) Gastrointestinal Upset oxycodone (From Percocet) Adverse Reaction (Verified 05/13/25 11:37) Gastrointestinal Upset Medication List - Last Reconciled 05/13/25 by Alexx Santoyo MD acetaminophen-codeine 300-60 mg 1 tab PO TID PRN albuterol sulfate 90 mcg/actuation 1 inh inhalation Q4H PRN aspirin 81 mg PO QAM atorvastatin 40 mg PO BEDTIME betamethasone dipropionate 0.05% 1 appl topical BID blood sugar diagnostic (FreeStyle Lite Strips) As directed budesonide-formoterol 160-4.5 mcg/actuation (Symbicort) 2 puffs inhalation BID carvedilol 25 mg PO BID cetirizine 10 mg PO QAM cholecalciferol (vitamin D3) 50 mcg PO DAILY citalopram 20 mg PO QAM cyanocobalamin (vitamin B-12) 1,000 mcg PO DAILY cyclobenzaprine 10 mg PO TID PRN diclofenac sodium 1% (Arthritis Pain (diclofenac)) 4 grams topical QID PRN 30 days famotidine 40 mg PO BEDTIME furosemide 40 mg PO QAM hydralazine 50 mg PO BID insulin syringe-needle U-100 Use once a week to inject testosterone lancets (TRUEplus Lancets) As directed lansoprazole 30 mg PO DAILY metformin 1,000 mg PO multivitamin 1 tab PO QAM quetiapine 50 mg PO BEDTIME tadalafil 20 mg PO ONCE PRN 30 days testosterone cypionate 80 mg (0.4 mL) subcut QWEEK 28 days tirzepatide (Mounjaro) 7.5 mg subcut QWEEK zolpidem 5 mg PO BEDTIME HPI Comments Details: Patient returns today for excision of right posterior neck sebaceous cyst. He reports the cyst decreased in size but then started to increase in sides once again. He denies any discharge. [facility] Medical History HFrEF (heart failure with reduced ejection fraction) ICD (implantable cardioverter-defibrillator) in place Nonischemic cardiomyopathy HTN (hypertension) Diabetes mellitus CAD (coronary artery disease) Surgical History History of carpal tunnel surgery H/O colonoscopy History of cardiac cath (~2016) Family History Father No problems noted. Mother No problems noted. Social History Household Members: Spouse Alcohol intake: former Patient Tobacco Use Status: Former Tobacco user Second Hand Smoke Exposure: No Physical Exam Vital Signs: Last Vital Signs Pulse 76 05/13/25 11:25 BP 123/60 05/13/25 11:25 BMI result Body Mass Index 31.2 Neck Neck images: 2 1. 2 cm posterior neck sebaceous cyst. Non fluctuant Office Procedures Excision Details: Preoperative diagnosis: Sebaceous cyst posterior right neck Postoperative diagnosis: Same Procedure: Excision sebaceous cyst posterior right neck Surgeon: Alexx Santoyo MD Licensing And Registration Director: None Anesthesia: Lidocaine 1% with epinephrine Indications for procedure: Enlarging sebaceous cyst of the posterior right neck measuring approximately 2 cm in diameter Operative findings: Sebaceous cyst posterior neck, 2 cm Specimen: Sebaceous cyst posterior right neck Estimated blood loss: 2 mL Complications: None Procedure details: Patient was placed in a prone position. The site of surgery was confirmed in the right posterior neck. After assuring informed consent the skin was prepped with Betadine and draped in a sterile fashion. Local anesthesia was then infiltrated circumferentially around the cyst. An elliptical incision oriented transversely was then created with a scalpel and carried out through subcutaneous tissue, and around the cyst wall. The cyst was completely excised and passed off the table. This was sent to pathology for further examination. Hemostasis was assured using using interrupted 3-0 Polysorb sutures. Dermis was reapproximated using interrupted 3-0 Polysorb sutures. Skin was closed using interrupted 3-0 nylon sutures. Sterile dressings consisting of fluff gauze and paper tape was then applied. The patient tolerated the procedure well. He was discharged in stable condition. [id number] scalp/neck/hands/feet/genitalia 1.1cm-2cm Procedure code (CPT) selection complete Assessment & Plan Assessment & Plan (1) Sebaceous cyst: Code(s): L72.3 - Sebaceous cyst Category: Medical Plan Patient underwent excision of the right posterior neck sebaceous cyst. He tolerated the procedure well and will return in 1 week for suture removal. Orders: Orders 2 Surgical Today L72.3 - Sebaceous cyst Coding Level of Care Code Procedure Only Diagnoses Sebaceous cyst L72.3 CPT Codes Scalp/Neck/Hands/Feet/Genetalia - CPT: 44796-[id number] scalp/neck/hands/feet/genitalia 1.1cm-2cm ([id number])
[2025-05-13 11:25] VITALS: BP 123/60; PULSE 76; BMI 31.2
--- OUTSIDE RECORDS SUMMARY | 2025-05-13 14:31 | XMS_ITS | Encounter Summary ---
Author Organization [employer] Address [address] [facility] 7t [place] [address] Care Team Providers Care Medical Education Specialist Name Role Phone Roberto [facility] Primary Care Provider [phone] Reason for Visit * Reason Comments Med Refill Encounter Details Date Type Department Care Team (Late st Contact Info) Description 01/05/2025 Refill [facility] [address] [place], [place] [phone] [facility] 230 [place] [address] Diabetes mellitus type 2 with neurological manifestations [...] Description 05/27/2025 9:00 AM EST Office Visit [facility] [address] [place] [address] Carmen Mejia FNP 230 [place] [address] 07/30/2025 11:00 AM EST Office Visit [address] [address] documented as of this encounter Visit Diagnoses Diagnosis Diabetes mellitus type 2 with neurological manifestations (HCC) documented in this encounter Additional Health Concerns Assessment Noted Time PHQ-9 Depression Total Score: 0 11/06/19 25 8:57 AM EDT documented as of this encounter Care Teams Medical Education Specialist Relationship Specialty Start Date End Date Carmen Mejia FNP [address] [place] [address] PCP - General Family Medicine 03/18/21 documented as of this encounter
--- OUTSIDE RECORDS SUMMARY | 2025-05-13 14:31 | XMS_ITS | Encounter Summary ---
Author Organization [employer] Address [address] [facility] 7t [place] [address] Care Team Providers Care Human Performance Professor Name Role Phone Carmen Mejia [employer] Primary Care Provider [phone] Reason for Visit * Reason Onset Date Comments denture appt PA 11/02/2022 Encounter Details Date Type Department Care Team (Late st Contact Info) Description 11/02/2022 Telephone [facility] [address] [place] [address] Bal Aponte, DMD [address] [place] [address] denture appt PA Social History Tobacco Use [...] 11:09 AM EDT Rep from [facility] called in checking in on the [...] Description 05/27/2025 9:00 AM EST Office Visit [address] [address] Carmen Mejia FNP [address] [place] [address] 07/30/2025 11:00 AM EST Office Visit [address] [address] documented as of this encounter Visit Diagnoses Not on filedocumented in this encounter Additional Health Concerns Assessment Noted Time PHQ-9 Depression Total Score: 0 10/15/19 23 8:58 AM EDT documented as of this encounter Care Teams Human Performance Professor Relationship Specialty Start Date End Date Carmen Mejia FNP [address] [place] [address] PCP - General Family Medicine 03/18/21 documented as of this encounter
--- OUTSIDE RECORDS SUMMARY | 2025-05-13 14:31 | XMS_ITS | Encounter Summary ---
Author Organization [employer] Address [address] [place] [address] 7t [place] [address] Care Team Providers Care Manager Technical Services Name Role Phone Roberto [facility] Primary Care Provider [phone] Reason for Visit * Reason Comments Med Refill Encounter Details Date Type Department Care Team (Late st Contact Info) Description 11/18/2022 Refill [facility] [address] [place] [phone] [facility] [address] [place], [place] [phone] Primary insomnia; Type 2 diabetes mellitus with other specified complication, without long-term current use of insulin ([facility]) Social History Tobacco Use Types [...] Description 05/27/2025 9:00 AM EST Office Visit [facility] [address] [place] [phone] [facility] [address] [place] [address] 07/30/2025 11:00 AM EST Office Visit [facility] [address] [place] [address] documented as of this encounter Visit Diagnoses Diagnosis Primary insomnia Persistent disorder of initiating or maintaining sleep Type 2 diabetes mellitus with other specified complication, without long-term current use of insulin (HCC) documented in this encounter Additional Health Concerns Assessment Noted Time PHQ-9 Depression Total Score: 0 10/15/19 23 8:58 AM EDT documented as of this encounter Care Teams Manager Technical Services Relationship Specialty Start Date End Date Carmen Mejia FNP [address] [place] [address] PCP - General Family Medicine 03/18/21 documented as of this encounter
--- OUTSIDE RECORDS SUMMARY | 2025-05-13 14:31 | XMS_ITS | Encounter Summary ---
Author Organization [employer] Address [address] [facility] 7t [place] [address] Care Team Providers Care Fashion Photographer Name Role Phone Carmen Mejia [facility] Primary Care Provider [phone] Encounter Details Date Type Department Care Team (Late Contact Info) Description 03/07/2023 Orders Only [facility] PED[facility] [address] [place] [address] Shannon Sargent LPN Social History Tobacco Use [...] Description 05/27/2025 9:00 AM EST Office Visit [facility] [address] [place] [address] [facility] [address] [place] [address] 07/30/2025 11:00 AM EST Office Visit [facility] [address] [place] [address] documented as of this encounter Visit Diagnoses Not on filedocumented in this encounter Additional Health Concerns Assessment Noted Time PHQ-9 Depression Total Score: 0 01/14/20 23 9:12 AM EDT documented as of this encounter Care Teams Fashion Photographer Relationship Specialty Start Date End Date Clendenin, STEVEN Morales [address] [place] [address] PCP - General Family Medicine 03/18/21 documented as of this encounter
--- OUTSIDE RECORDS SUMMARY | 2025-05-13 14:31 | XMS_ITS | Encounter Summary ---
Author Organization [employer] Address [address] [facility] 7t [place] [address] Care Team Providers Care Sys Dir Name Role Phone Carmen Mejia [facility] Primary Care Provider Reason for Visit * Reason Comments Med Refill Encounter Details Date Type Department Care Team (Late st Contact Info) Description 11/16/2022 Refill [facility] [address] [place] [phone] Melani Haider FNP [address] [place], [place] [phone] Other chronic pain Social History Tobacco Use [...] Description 05/27/2025 9:00 AM EST Office Visit [facility] [address] [place] [phone] RobertoCarmen martinez [facility] [address] [place] [address] 07/30/2025 11:00 AM EST Office Visit [facility] [address] [place] [address] documented as of this encounter Visit Diagnoses Diagnosis Other chronic pain documented in this encounter Additional Health Concerns Assessment Noted Time PHQ-9 Depression Total Score: 0 10/15/19 23 8:58 AM EDT documented as of this encounter Care Teams Sys Dir Relationship Specialty Start Date End Date Carmen Mejia FNP [address] [place] [address] PCP - General Family Medicine 03/18/21 documented as of this encounter
--- OUTSIDE RECORDS SUMMARY | 2025-05-13 14:31 | XMS_ITS | Encounter Summary ---
Author Organization [employer] Address [address] [facility] 7t [place] [address] Care Team Providers Care Aviation Operations Specialist Name Role Phone Carmen Mejia [facility] Primary Care Provider [phone] Encounter Details Date Type Department Care Team (Late Contact Info) Description 10/15/2022 Orders Only [facility] PEDS [address] [place], [place] [phone] Ritika Mcgovern LPN Social History Tobacco Use [...] Description 05/27/2025 9:00 AM EST Office Visit [address] [address] Carmen Mejia [facility] [address] [place] [address] 07/30/2025 11:00 AM EST Office Visit [address] [address] documented as of this encounter Visit Diagnoses Not on filedocumented in this encounter Additional Health Concerns Assessment Noted Time PHQ-9 Depression Total Score: 0 10/15/19 23 8:58 AM EDT documented as of this encounter Care Teams Aviation Operations Specialist Relationship Specialty Start Date End Date Carmen Mejia FNP [address] [place] [address] PCP - General Family Medicine 03/18/21 documented as of this encounter
--- OUTSIDE RECORDS SUMMARY | 2025-05-13 14:32 | XMS_ITS | Clinical Summary ---
Author Organization [employer] Address [address] [facility] 7[address] [place] [address] Care Team Providers Care Assistant Auto Center Manager Name Role Phone Roberto [facility] Primary Care Provider [phone] Allergies Active Allergy Reactions Criticality Noted Date [...] record from that organization. GaviLAX 17 GM/SCOOP powderIndication s:Drug-induced constipation TAKE [...] 1 TABLET BY MOUTH EVERY MORNING (CALL [phone] FOR APPOINTMENT (Dr. Pillai)) 023 Active carvedilol (Coreg) 25 MG tablet TAKE 1 TABLET BY MOUTH TWICE DAILY IN THE MORNING AND IN THE EVENING WITH FOOD 023 Active atorvastatin (Lipitor) 40 MG tablet Take 40 mg by mouth at bedtime. 023 Active Aspirin Low Dose 81 MG EC tablet TAKE 1 TABLET BY MOUTH EVERY MORNING (CALL [phone] FOR APPOINTMENT (Dr. Pillai )) 023 Active [...] 11 025 Active Alcohol Swabs (Alcohol Prep) padsIndications: [...] s:Diabetes mellitus type 2 with neurological manifestations (HCC) Use as directed to check blood sugar four times daily 1 each 025 Active glucose blood (FREESTYLE LITE) test stripIndications :Diabetes mellitus type 2 with neurological manifestations (HCC) TEST BLOOD SUGAR THREE TIMES DAILY 100 each 11 025 Active omeprazole (PriLOSEC) [address] capsuleIndicatio ns:Dysphagia, unspecified type TAKE 1 CAPSULE BY MOUTH TWICE DAILY 60 capsule 3 025 Active cetirizine (ZyrTEC) 10 MG tabletIndication s:Moderate persistent asthma without complication TAKE 1 TABLET BY MOUTH EVERY MORNING 30 tablet 5 025 Active Multiple Vitamin (Multivitamin) tabletIndication s:Diabetes mellitus type 2 with neurological manifestations ([facility]) TAKE 1 TABLET BY MOUTH EVERY MORNING 30 tablet 5 025 Active cyanocobalamin (Vitamin B-12) 1000 MCG tablet TAKE 1 TABLET BY MOUTH EVERY MORNING 30 tablet 5 025 Active Tirzepatide (Mounjaro) 7.5 MG/0.5ML solution auto-injectorInd ications:Type 2 diabetes mellitus with hyperglycemia, without long-term current use of insulin ([facility]) Inject 7.5 mg under the skin 1 (one) time per week. 2 mL 3 025 Active metFORMIN (Glucophage) 1000 MG tabletIndication s:Diabetes mellitus type 2 with neurological manifestations ([facility]) TAKE 1 TABLET BY MOUTH TWICE DAILY IN THE MORNING AND IN THE EVENING WITH MEALS 180 tablet 1 025 Active zolpidem (Ambien) 5 MG tabletIndication s:Primary insomnia TAKE 1 TABLET BY MOUTH AT BEDTIME 30 tablet 1 025 Active acetaminophen-co deine (Tylenol w/ Codeine #4) 300-60 MG tabletIndication s:Nontraumatic incomplete tear of rotator cuff, unspecified laterality TAKE 1 TABLET BY MOUTH EVERY 8 HOURS NEEDED FOR MODERATE PAIN 84 tablet 05/02/20 25 12:04 PM EST 025 Active Jardiance 25 MGIndications:Ty pe 2 diabetes mellitus with other specified complication, without long-term current use of insulin ([facility]) TAKE 1 TABLET [...] complication, without long-term current use of insulin ([facility]) TAKE 2 TABLETS BY MOUTH EVERY DAY AT BEDTIME 60 tablet 3 025 Active budesonide-formo terol (Symbicort) 160-4.5 MCG/ACT inhalerIndicatio ns:Chronic obstructive pulmonary disease, unspecified COPD type (CMS/HCC) ([facility]) INHALE 2 PUFFS BY MOUTH TWICE DAILY IN THE MORNING AND IN THE EVENING RINSE MOUTH AFTER USING. 10.2 g 3 025 Active budesonide-formo terol (Symbicort) 160-4.5 MCG/ACT inhalerIndicatio ns:Chronic obstructive pulmonary disease, unspecified COPD type (CMS/HCC) ([facility]) INHALE 2 PUFFS BY MOUTH TWICE DAILY IN THE MORNING AND IN THE EVENING RINSE MOUTH AFTER USING. 10.2 g 3 025 2024 Discontinued(R eorder (will not trigger notification to Pharmacy)) QUEtiapine (SEROquel) 50 MG tabletIndication s:Type 2 diabetes mellitus with other specified complication, without long-term current use of insulin ([facility]) TAKE 2 TABLETS BY MOUTH EVERY DAY AT BEDTIME 60 tablet 3 2024 Discontinued Jardiance 25 MGIndications:Ty pe 2 diabetes mellitus with other specified complication, without long-term current use of insulin ([facility]) TAKE 1 TABLET BY MOUTH EVERY MORNING 30 tablet 3 2024 Discontinued citalopram (CeleXA) 20 MG tabletIndication s:Mood disorder (CMS/HCC) TAKE 1 TABLET BY MOUTH EVERY MORNING 30 tablet 3 025 2024 Discontinued citalopram (CeleXA) 10 MG tabletIndication s:Mood disorder (CMS/HCC) TAKE 1 TABLET BY MOUTH EVERY MORNING 30 tablet 3 025 2024 Discontinued zolpidem (Ambien) 5 MG tabletIndication [...] candidate) Tier III (Q6 month visits) Last MEDICAL LABORATORY SPECIALIST Agreement: 09/25/24 Assessment & Plan (04/30/2025 2:21 PM EST): Timeline: - 07/17/24: Group visit, Utox/pill count as expected - 09/25/24: Group Visit, utox/pill count as expected - 11/27/24: Group visit, utox/pill count as expected - 04/30/25: Group visit, utox/pill count as expected Assessment & Plan (11/29/2024 3:16 PM EDT): Timeline: - 11/17/23: MEDICAL LABORATORY SPECIALIST Agreement, Utox/pill count as expected - 12/13/23: [...] (09/25/2024 2:43 PM EDT): Timeline: - 11/17/23: MEDICAL LABORATORY SPECIALIST Agreement, Utox/pill count as expected - 12/13/23: [...] (07/24/2024 3:07 PM EST): Timeline: - 11/17/23: MEDICAL LABORATORY SPECIALIST Agreement, Utox/pill count as expected - 12/13/23: NCNS to Group visit - 12/27/23: Initial Group Visit, Utox/pill count as expected - 01/31/24: Group visit, Utox/pill count as expected - 03/13/24: Group visit, Utox/pill count as expected - 05/15/24: Group visit, Utox/pill count as expected - 07/17/24: Group visit, Utox/pill count as expected Assessment & Plan (05/15/2024 6:31 PM EST): Timeline: - 11/17/23: MEDICAL LABORATORY SPECIALIST Agreement, Utox/pill count as expected - 12/13/23: [...] 07/20/2022 Overview (07/20/2022): [place] [facility] Hx of reduced ejection fraction that has [...] managing pain with Tylenol #4. Compliant with MEDICAL LABORATORY SPECIALIST agreement Followed by [facility] [place] mnmt. Assessment & Plan (04/30/2025 2:20 [...] Healthcare maintenance 07/20/2022 Overview (04/28/2023): CRC: 2016 [facility] 10 [place] f/u PSA: 07/2022 0.57 HIV: Negative 2019 Hepatitis: Negative HCV 2019 Declines covid vaccine Assessment & Plan (01/13/2023 10:32 AM EDT): - Will request [facility] [place] records Carpal tunnel syndrome on both sides 07/20/2022 Overview (07/20/2022): EMG 12/2021-bilateral moderate-severe ulnar and median neuropathy and bilateral anahy guber anastamosis Se[place] [facility] [place] Nixon 04/2022; surgical candidate would require [...] Essential hypertension 07/14/2017 Overview (10/15/2022): Followed by [facility] [place] Hydralazine 50mg b.i.d Carvediol 25mg b.i.d [...] Erectile dysfunction 12/04/2015 Overview (07/20/2022): Followed by [facility] [place]rology and receives SQ testosterone Hypogonadism male 12/04/2015 Mixed hyperlipidemia 12/04/2015 Overview (10/15/2022): Atorvastatin 40mg daily Assessment & Plan (10/15/2022 3:42 PM EDT): Continue current regimen [place] (myocardial infarction) 12/04/2015 Encounters Date Type Department Care Team Description 05/13/2025 Patient Outreach [facility] [address] [place] [address] Carmen Mejia FNP Pre-visit Planning (SDIL screening completed on 10/29/2024) 05/08/2025 Refill [facility] [address] [place] [address] Unique Thompson MD Type 2 diabetes mellitus with other specified complication, without long-term current use of insulin ([facility]); Mood disorder (CMS/[facility]); Chronic obstructive pulmonary disease, unspecified COPD type (CMS/HCC) ([facility]) 05/08/2025 Refill [facility] [address] [place] [address] Carmen Mejia FNP Chronic obstructive pulmonary disease, unspecified COPD type (CMS/HCC) ([facility]) 04/30/2025 11:00 AM EST Office Visit [facility] [address] [place] [address] Melani Haider FNP Traumatic incomplete tear of left rotator cuff, subsequent encounter (Primary Dx); Long-term current use of opiate analgesic 04/30/2025 Travel 04/29/2025 Refill [facility] [address] [place], [place] [phone] Carie Mcmillan MD Nontraumatic incomplete tear of rotator cuff, unspecified laterality 04/23/2025 Telephone [facility] [address] [place] [address] Carmen Mejia FNP Appointment Request 04/14/2025 Refill [facility] [address] [place] [address] Ritika Boles DO Primary insomnia 03/28/2025 Telephone [facility] [address] [place] [address] Carmen Mejia [facility] Appointment Request 03/22/2025 Refill [facility] [address] [place] [address] [place]en [facility] Nontraumatic incomplete tear of rotator cuff, unspecified laterality 03/11/2025 Refill [facility] [address] [place] [address] Carmen Mejia [facility] Diabetes mellitus type 2 with neurological manifestations (CMS/[facility]) 02/25/2025 9:00 AM EDT Office Visit [facility] [address] [place] [address] [place] Carmen [facility] Type 2 diabetes mellitus with hyperglycemia, without long-term current use of insulin (CMS/[facility]) (Primary Dx); Erythematous skin nodule; Osteoarthritis of left knee, unspecified osteoarthritis type 02/25/2025 Telephone [facility] [address] [place] [address] Carmen Mejia FNP Referral 02/25/2025 Travel 02/22/2025 Telephone [facility] [address] [place] [address] Carmen Mejia [facility] Chart Prep 02/20/2025 Refill [facility] [address] [place] [address] [place] [facility] Nontraumatic incomplete tear of rotator cuff, unspecified laterality 02/15/2025 Patient Outreach [facility] [address] [place] [address] [place] DELI BAKERY CLERK Pre-visit Planning (SDOH was already completed) 02/14/2025 Refill [facility] [address] [place] [address] Carmen Mejia [facility] Primary insomnia from Last 3 Months Immunizations Immunization Administration [...] Description 05/27/2025 9:00 AM EST Office Visit [address] [address] 07/30/2025 11:00 AM EST Office Visit [address] [address] Health Maintenance Due Date Last Done Comments [...] on patient's age to complete this topic Goals Goal Patient Goal Type Associated Problems Recent Progress Patient-Stated? Author Help patients manage their type 2 diabetes Care Plan Help patients manage their type 2 diabetes No Ritika Mcgovern LPN Weekly blood pressure task Care Plan Weekly blood pressure task No Ritika Mcgovern LPN Help patients manage their type 2 diabetes Care Plan Help patients manage their type 2 diabetes No Ritika Mcgovern LPN Patient has diabetic eye disease Care Plan Patient has diabetic eye disease No Ritika Mcgovern LPN Help patients manage their type 2 diabetes Care Plan Help patients manage their type 2 diabetes No Ritika Mcgovern LPN Patient has chronic kidney disease Care Plan Patient has chronic kidney disease No Ritika Mcgovern LPN Weekly blood pressure task Care Plan Weekly blood pressure task No Ritika Mcgovern LPN Weekly blood pressure task Care Plan Weekly blood pressure task No Ritika Mcgovern LPN Patient has diabetic eye disease Care Plan Patient has diabetic eye disease No Ritika Mcgovern LPN Patient has diabetic eye disease Care Plan Patient has diabetic eye disease No Ritika Mcgovern LPN Patient has chronic kidney disease Care Plan Patient has chronic kidney disease No Ritika Mcgovern LPN Patient has chronic kidney disease Care Plan Patient has chronic kidney disease No Ritika Mcgovern LPN Weekly blood pressure task Care Plan Weekly blood pressure task No Agis, Kacy Weekly blood pressure task Care Plan Weekly blood pressure task No Agis, Kacy Weekly blood pressure task Care Plan Weekly blood pressure task No Agis, Kacy Patient has diabetic eye disease Care Plan Patient has diabetic eye disease No Agis, Kacy Patient has diabetic eye disease Care Plan Patient has diabetic eye disease No Agis, Kacy Patient has diabetic eye disease Care Plan Patient has diabetic eye disease No Agis, Kacy Patient has chronic kidney disease Care Plan Patient has chronic kidney disease No Agis, Kacy Patient has chronic kidney disease Care Plan Patient has chronic kidney disease No Agis, Kacy Patient has chronic kidney disease Care Plan Patient has chronic kidney disease No Agkisha, Kacy Weekly blood pressure task Care Plan Weekly blood pressure task No Rosa Hutson Weekly blood pressure task Care Plan Weekly blood pressure task No Rosa Huston Weekly blood pressure task Care Plan Weekly blood pressure task No Rosa Huston Patient has diabetic eye disease Care Plan Patient has diabetic eye disease No Rosa Huston Patient has diabetic eye disease Care Plan Patient has diabetic eye disease No Rosa Huston Patient has diabetic eye disease Care Plan Patient has diabetic eye disease No Rosa Huston Patient has chronic kidney disease Care Plan Patient has chronic kidney disease No Rosa Huston Patient has chronic kidney disease Care Plan Patient has chronic kidney disease No Rosa Huston Patient has chronic kidney disease Care Plan Patient has chronic kidney disease No Rosa Huston Procedures Procedure Name Priority Date/Time Associated Diagnosis [...] without long-term current use of insulin (CMS/HCC) ALBUMIN, RANDOM URINE W/CREATININE Routine 11/26/2024 10:47 [...] - 04/30/2025 11:59 AM EST .UTOX cup Lot#[id number] Exp. 05/20/26 Internal Pass Control Melani Haider [facility] POINT OF CARE TEST ENTER/EDIT ORDERABLES Final Result * (ABNORMAL) POCT Hgb A1c (02/25/2025 8:53 AM EDT) [facility] Hemoglobin A1C 8.4(A) 4.0 - 5.7 % Blood 02/25/2025 8:53 AM EDT [facility] POINT OF CARE TEST ENTER/EDIT ORDERABLES Final Result * (ABNORMAL) POCT Glucose (02/25/2025 8:51 AM EDT) Pathologist [facility] Glucose Blood, POC 231(A) 60 - 200 mg/dL Blood Capillary blood specimen / Unknown 02/25/2025 8:51 AM EDT [facility] POINT OF CARE TEST ENTER/EDIT ORDERABLES Final Result * (ABNORMAL) Albumin, Random Urine W/Creatinine (11/26/2024 10:47 AM EDT) Creatinine, Urine 43.29 mg/dL [facility] Microalbumin Urine 53.0 mg/L [facility] Microalbum Creatinine Ratio Ur 122.4(H) <30 ug/mg cr [facility] Comment:Albumin/Creatinine R atio Reference Ranges: Normal: < 30 ug/mg creatinine Microalbuminuria: 30 - 300 ug/mg creatinineClinical Albuminuria: > 300 ug/mg creatinine Urine 11/26/2024 10:4 7 AM EDT 11/26/2024 1:02 PM EDT [facility] LAB URINE ORDERABLES Final Re sult [facility] [address] [place] [phone] * Lipid Panel, Standard (11/26/2024 10:47 AM EDT) Triglycerides 125 <150 mg/dL [facility] Comment:Desirable Triglyceri de: less than 150 mg/dLBorderline High Triglyceride 150-199 mg/dLHigh Triglyceride: 200-499 mg/dLVery High Triglyceride: greater than or equal to 5OO mg/dL Cholesterol 127 <200 mg/dL [facility] Comment:Desirable Cholestero l: less than 200 mg/dLBorderline High Cholesterol: 200-239 mg/dLHigh Cholesterol: greater than 239 mg/dL LDL Cholesterol Calculated 59 <100 mg/dL [facility] Comment:Desirable LDL: less than 100 mg/dLNear Optimal/Above Optimal LDL: 110- 129 mg/dLBorderline High LDL: 130-159 mg/dLHigh LDL: 160-189 mg/dLVery High LDL: greater than or equal to 190 mg/dL HDL Cholesterol 43 >40 mg/dL [facility] Comment:Desirable HDL: great er than 40 mg/dL Note: This HDL assay may give artificially low results in patients with liver disease. Blood Venous blood specimen / Unknown 11/26/2024 10:47 AM EDT 11/26/2024 1:17 PM EDT [facility] DELI BAKERY CLERK LAB BLOOD ORDERABLES Final Re sult [facility] [address] [place] [address] [phone] * HEPATITIS C AB W/REFL TO HCV RNA, QN, PCR (02/27/2020 9:28 AM EDT) HEPATITIS C ANTIBODY NON-REACT LAYNE NON-REACT LAYNE [facility] INDEX 0.02 <1.00 [facility] Comment: HCV antibody was non-reactive. There is no laboratory evidence of HCV infection. In most cases, no further action is required. However, if recent HCV exposure is suspected, a test for HCV RNA (test code 19645) is suggested. For additional information please refer to http://eMar.AirXP/faq/VQM98j1 (This link is being provided for informational/ educational purposes only.) 02/27/2020 9:28 AM EDT Marcos Robles DELI BAKERY CLERK HISTORICAL/NON ORDERABLE LA BS Final Result Performing Organization Address City/[facility] [[email or web address]] Co de Phone Number [facility] [address] * HIV 1/2 ANTIGEN/ANTIBODY,FOURTH GENERATION W/RFL [...] purpose. For additional information please refer to http://education.Mindframe.StoryPress/faq/ZPM390 (This link is being provided for informational/ educational purposes only.) The performance of this assay has not been clinically validated in patients less than 2 years old. 02/27/2020 9:28 AM EDT Marcos Robles DELI BAKERY CLERK LAB BLOOD ORDERABLES Final Result [facility] [address] * (ABNORMAL) Colonoscopy (06/20/2015) Colonoscopy Abnormal( A) Normal Comment:polyps-5 year follow up Historical Provider MD HEALTH MAINTENANCE Final Result from Last 3 Months or Most Recently Relevant to Health Maintenance Additional Health Concerns Active Problems Noted Date Diagnosed Date Help patients manage their type 2 diabetes 05/08 Weekly blood pressure task 05/08/2025 Help patients manage their type 2 diabetes 05/08 Patient has diabetic eye disease 05/08/2025 Help patients manage their type 2 diabetes 05/08 Patient has chronic kidney disease 05/08/2025 Weekly blood pressure task 05/08/2025 Weekly blood pressure task 05/08/2025 Patient has diabetic eye disease 05/08/2025 Patient has diabetic eye disease 05/08/2025 Patient has chronic kidney disease 05/08/2025 Patient has chronic kidney disease 05/08/2025 Weekly blood pressure task 05/10/2025 Weekly blood pressure task 05/10/2025 Weekly blood pressure task 05/10/2025 Patient has diabetic eye disease 05/10/2025 Patient has diabetic eye disease 05/10/2025 Patient has diabetic eye disease 05/10/2025 Patient has chronic kidney disease 05/10/2025 Patient has chronic kidney disease 05/10/2025 Patient has chronic kidney disease 05/10/2025 Weekly blood pressure task 05/13/2025 Weekly blood pressure task 05/13/2025 Weekly blood pressure task 05/13/2025 Patient has diabetic eye disease 05/13/2025 Patient has diabetic eye disease 05/13/2025 Patient has diabetic eye disease 05/13/2025 Patient has chronic kidney disease 05/13/2025 Patient has chronic kidney disease 05/13/2025 Patient has chronic kidney disease 05/13/2025 Insurance [facility] [address] [id number] [facility] [address]nd [place] [address] Care Teams Assistant Auto Center Manager Relationship Specialty Start Date End Date [place] Carmen, STEVEN [address] [place] [id number] PCP - General Family Medicine 03/18/21
--- OUTSIDE RECORDS SUMMARY | 2025-05-13 14:32 | XMS_ITS | Encounter Summary ---
Author Organization [employer] Address [address] [facility] [address] [place] [address] Care Team Providers Care Neurology Specialist Name Role Phone Roberto, [facility] Primary Care Provider [phone] Reason for Visit * Reason Comments Pre-visit Planning SDOH screening compl eted on 10/29/2024 Encounter Details Date Type Department Care Team (Late st Contact Info) Description 05/13/2025 Patient Outreach [facility] [address] [place], [place] [phone] RobertoCarmen [facility]FORM[facility]LY [facility] [address] [place] [address] Pre-visit Planning (SDOH screening completed on 10/29/2024) Social History Tobacco Use Types Packs/Day Years [...] encounter Progress Notes * Rosa Huston - 05/13/2025 9:55 AM EST COURTNEY Lee. Placed outbound call to patient to complete pre-visit planning. No answer at this time. Patient name and were not confirmed. CC left voicemail requesting return call. Direct contact information provided. documented in this encounter Plan of Treatment Upcoming Encounters Date Type Department Care Team (Late st Contact Info) Description 05/27/2025 9:00 AM EST Office Visit [address] [address] [facility], [address] [address] 07/30/2025 11:00 AM EST Office Visit [facility] [address] [place] [phone] documented as of this encounter Goals Goal Patient Goal Type Associated Problems Recent Progress Patient-Stated? Author Help patients manage their type 2 diabetes Care Plan Help patients manage their type 2 diabetes Ritika Chand LPN Weekly blood pressure task Care Plan Weekly blood pressure task Ritika Chand LPN Help patients manage their type 2 diabetes Care Plan Help patients manage their type 2 diabetes Ritika Chand LPN Patient has diabetic eye disease Care Plan Patient has diabetic eye disease No Froilan, Ritika, CORE SETTER Help patients manage their type 2 diabetes [...] has chronic kidney disease No Agis, Kacy Weekly blood pressure task [...] has chronic kidney disease No Rosa Huston documented as of this encounter Visit Diagnoses Not on filedocumented in this encounter Additional Health Concerns Active Problems Noted Date [...] 05/13/2025 Patient has chronic kidney disease 05/13/2025 Assessment Noted Time PHQ-9 Depression Total Score: 0 11/06/19 25 8:57 AM EDT documented as of this encounter Care Teams Neurology Specialist Relationship Specialty Start Date End Date [place] Carmen [facility] [address] [place] [id number] PCP - General Family Medicine 03/18/21 documented as of this encounter
--- OUTSIDE RECORDS SUMMARY | 2025-05-13 14:32 | XMS_ITS | Encounter Summary ---
Author Organization [employer] Address 75 [facility] 7t [place] [address] Care Team Providers Care Technical Sales Associate Name Role Phone Carmen Mejia [facility] Primary Care Provider [phone] Encounter Details Date Type Department Care Team (Late st Contact Info) Description 05/05/2023 Abstract [facility] MEDICINE [address] [place] [address] Dia Gibson Social History Tobacco Use Types [...] Description 05/27/2025 9:00 AM EST Office Visit [facility] [address] [place] [address] Carmen Mejia FNP [address] [place] [address] 07/30/2025 11:00 AM EST Office Visit [address] [address] documented as of this encounter Visit Diagnoses Not on filedocumented in this encounter Additional Health Concerns Assessment Noted Time PHQ-9 Depression Total Score: 24 023 9:04 AM EDT documented as of this encounter Care Teams Technical Sales Associate Relationship Specialty Start Date End Date Carmen Mejia FNP [address] [place] [address] PCP - General Family Medicine 03/18/21 documented as of this encounter
--- OUTSIDE RECORDS SUMMARY | 2025-05-13 14:32 | XMS_ITS | Encounter Summary ---
Author Organization [employer] Address 75 [facility] 7t [place] [address] Care Team Providers Care Hunter Trapper Name Role Phone Carmen Mejia [facility] Primary Care Provider [phone] Reason for Visit * Reason Comments Med Refill Encounter Details Date Type Department Care Team (Late st Contact Info) Description 01/08/2024 Refill [facility] 230 [place], [place] [phone] [facility] 230 [place] [address] Moderate persistent asthma without complication Social History [...] Description 05/27/2025 9:00 AM EST Office Visit [facility] [address] [place] [address] Carmen Mejia FNP [address] [place] [address] 07/30/2025 11:00 AM EST Office Visit [address] [address] documented as of this encounter Visit Diagnoses Diagnosis Moderate persistent asthma without complication documented in this encounter Additional Health Concerns Assessment Noted Time PHQ-9 Depression Total Score: 0 11/09/19 24 9:34 AM EDT documented as of this encounter Care Teams Hunter Trapper Relationship Specialty Start Date End Date Carmen Mejia FNP [address] [place] [address] PCP - General Family Medicine 03/18/21 documented as of this encounter
--- OUTSIDE RECORDS SUMMARY | 2025-05-13 14:32 | XMS_ITS | Encounter Summary ---
Author Organization [employer] Address [address] [place] [address] 7t [place] [address] Care Team Providers Care Molding Machine Tender Name Role Phone Carmen Mejia WIND ENERGY PROJECT MANAGER Primary Care Provider [phone] Encounter Details Date Type Department Care Team (Late st Contact Info) Description 07/08/2022 Orders Only [address] [address] Shannon Sargent LPN Social History Tobacco Use [...] Description 05/27/2025 9:00 AM EST Office Visit [address] [address] Carmen Mejia FNP [address] [place] [address] 07/30/2025 11:00 AM EST Office Visit [address] [address] documented as of this encounter Visit Diagnoses Not on filedocumented in this encounter Care Teams Molding Machine Tender Relationship Specialty Start Date End Date Carmen Mejia FNP [address] [place] [address] PCP - General Family Medicine 03/18/21 documented as of this encounter
--- OUTSIDE RECORDS SUMMARY | 2025-05-13 14:32 | XMS_ITS | Encounter Summary ---
Author Organization [employer] Address 75 [facility] 7t [place] [address] Care Team Providers Care Moccasin Sewer Name Role Phone Carmen Mejia ELECTRONIC SYSTEMS TECHNICIAN Primary Care Provider [phone] Encounter Details Date Type Department Care Team (Late Contact Info) Description 07/07/2022 Orders Only [facility] CH[facility] MED & PEDS [address] [place], [place] [phone] Ritika Mcgovern LPN Social History Tobacco Use [...] Description 05/27/2025 9:00 AM EST Office Visit [facility] MED[facility] [address] [place] [address] Carmen Mejia FNP 230 [place] [address] 07/30/2025 11:00 AM EST Office Visit [address] [address] documented as of this encounter Visit Diagnoses Not on filedocumented in this encounter Care Teams Moccasin Sewer Relationship Specialty Start Date End Date Carmen Mejia FNP [address] [place] [address] PCP - General Family Medicine 03/18/21 documented as of this encounter
--- OUTSIDE RECORDS SUMMARY | 2025-05-13 14:32 | XMS_ITS | Encounter Summary ---
Author Organization [employer] Address 75 [facility] 7t [place] [address] Care Team Providers Care Rn Interventional Name Role Phone Carmen Mejia DYNAMICS AX TECHNICAL ARCHITECT Primary Care Provider [phone] Reason for Visit * Reason Comments Med Refill Encounter Details Date Type Department Care Team (Late st Contact Info) Description 05/08/2025 Refill [facility] MEDICINE 230 [place], [place] [phone] Unique Thompson MD 230 [place], [place] [phone] Type 2 diabetes mellitus with other specified complication, without long-term current use of insulin (HCC); Mood disorder (CMS/HCC); Chronic obstructive pulmonary disease, unspecified COPD type (CMS/HCC) (HCC) Social History Tobacco Use Types Packs/Day Years [...] Description 05/27/2025 9:00 AM EST Office Visit [facility] [address] [place] [address] [place] Carmen, [facility] 230 [place] [address] 07/30/2025 11:00 AM EST Office Visit [address] [address] documented as of this encounter Goals Goal [...] 2 diabetes Ritika Chand LPN Patient has chronic kidney disease Care Plan Patient has chronic kidney disease Ritika Chand LPN Weekly blood pressure task Care Plan Weekly blood pressure task Ritika Chand LPN Weekly blood pressure task [...] chronic kidney disease No Ritika Mcgovern LPN documented as of this encounter Visit Diagnoses Diagnosis Type 2 diabetes mellitus with other specified complication, without long-term current use of insulin ([facility]) Mood disorder (CMS/HCC) Unspecified episodic mood disorder Chronic obstructive pulmonary disease, unspecified COPD type (CMS/[facility]) ([facility]) documented in this encounter Additional Health Concerns Active [...] 05/08/2025 Patient has chronic kidney disease 05/08/2025 Assessment Noted Time PHQ-9 Depression Total Score: 0 11/06/19 25 8:57 AM EDT documented as of this encounter Care Teams Rn Interventional Relationship Specialty Start Date End Date Carmen Mejia FNP [address] [place] [address] PCP - General Family Medicine 03/18/21 documented as of this encounter
--- OUTSIDE RECORDS SUMMARY | 2025-05-13 14:32 | XMS_ITS | Encounter Summary ---
Author Organization [employer] Address 75 [facility] 7t [place] [address] Care Team Providers Care Transfer Car Operator Name Role Phone Carmen Mejia [facility] Primary Care Provider [phone] Encounter Details Date Type Department Care Team (Late st Contact Info) Description 06/11/2022 Orders Only [facility] CHC MED & PEDS [address] [place] [address] iRtika Mcgovern LPN Social History Tobacco Use Types [...] Description 05/27/2025 9:00 AM EST Office Visit [facility] MEDICINE [address] [place] [address] [facility] 230 [place] [address] 07/30/2025 11:00 AM EST Office Visit [facility] MEDICINE [address] [place] [address] documented as of this encounter Visit Diagnoses Not on filedocumented in this encounter Care Teams Transfer Car Operator Relationship Specialty Start Date End Date Carmen Mejia FNP [address] [place] [address] PCP - General Family Medicine 03/18/21 documented as of this encounter
--- OUTSIDE RECORDS SUMMARY | 2025-05-13 14:32 | XMS_ITS | Encounter Summary ---
Author Organization [employer] Address 75 [facility] 7t [place] [address] Care Team Providers Care Assistant Field Hockey Coach Name Role Phone Carmen Mejia [facility] Primary Care Provider [phone] Reason for Visit * Reason Comments Med Refill Encounter Details Date Type Department Care Team (Late st Contact Info) Description 10/12/2023 Refill [facility] MEDICINE [address] [place], [place] [phone] Carmen Mejia [facility] 230 [place] [address] Primary insomnia Social History Tobacco Use Types [...] Description 05/27/2025 9:00 AM EST Office Visit [address] [address] Carmen Mejia FNP [address] [place] [address] 07/30/2025 11:00 AM EST Office Visit [address] [address] documented as of this encounter Visit Diagnoses Diagnosis Primary insomnia Persistent disorder of initiating or maintaining sleep documented in this encounter Additional Health Concerns Assessment Noted Time PHQ-9 Depression Total Score: 24 023 9:04 AM EDT documented as of this encounter Care Teams Assistant Field Hockey Coach Relationship Specialty Start Date End Date Carmen Mejia FNP [address] [place] [address] PCP - General Family Medicine 03/18/21 documented as of this encounter
--- OUTSIDE RECORDS SUMMARY | 2025-05-13 14:32 | XMS_ITS | Encounter Summary ---
Author Organization [employer] Address 75 [facility] 7t [place] [address] Care Team Providers Care Universal Grinder Tool Name Role Phone Roberto [facility] Primary Care Provider Reason for Visit * Reason Comments Med Refill Encounter Details Date Type Department Care Team (Late st Contact Info) Description 01/03/2024 Refill [facility] CH[facility] MED & PEDS [address] [place], [place] [phone] Roberto, [facility] 230 [facility] [place] [address] Nontraumatic incomplete tear of rotator cuff, unspecified [...] Description 05/27/2025 9:00 AM EST Office Visit [address] [address] Carmen Mejia FNP [address] [place] [address] 07/30/2025 11:00 AM EST Office Visit [address] [address] documented as of this encounter Visit Diagnoses Diagnosis Nontraumatic incomplete tear of rotator cuff, unspecified laterality documented in this encounter Additional Health Concerns Assessment Noted Time PHQ-9 Depression Total Score: 0 11/09/19 24 9:34 AM EDT documented as of this encounter Care Teams Universal Grinder Tool Relationship Specialty Start Date End Date Carmen Mejia FNP [address] [place] [address] PCP - General Family Medicine 03/18/21 documented as of this encounter
--- OUTSIDE RECORDS SUMMARY | 2025-05-13 14:32 | XMS_ITS | Encounter Summary ---
Author Organization [employer] Address 75 [facility] 7t [place] [address] Care Team Providers Care Oceanographer Assistant Name Role Phone Carmen Mejia [facility] Primary Care Provider Reason for Visit * Reason Comments Med Refill Encounter Details Date Type Department Care Team (Late st Contact Info) Description 05/08/[address] [facility] MEDICINE [address] [place], [place] [phone] Carmen Mejia [facility] 230 [place] [address] Chronic obstructive pulmonary disease, unspecified COPD type [...] AM EST Office Visit [facility] MEDICINE [address] [place] [address] [facility] 230 [place] [address] 07/30/2025 11:00 AM EST Office Visit [address] [address] documented as of this encounter Goals Goal [...] Care Plan Patient has diabetic eye disease Ritika Chand LPN Patient has chronic kidney disease Care Plan Patient has chronic kidney disease Ritika Chand LPN Patient has chronic kidney disease Care Plan Patient has chronic kidney disease Ritika Chand LPN documented as of this encounter Visit Diagnoses Diagnosis Chronic obstructive pulmonary disease, unspecified COPD type (CMS/HCC) (HCC) documented in this encounter Additional Health [...] documented as of this encounter Care Teams Oceanographer Assistant Relationship Specialty Start Date End Date Carmen Mejia FNP [address] [place] [address] PCP - General Family Medicine 03/18/21 documented as of this encounter
--- OUTSIDE RECORDS SUMMARY | 2025-05-13 14:32 | XMS_ITS | Encounter Summary ---
Author Organization [employer] Address 75 [facility] 7t [place] [address] Care Team Providers Care [employer]et [employer] Union Name Role Phone Roberto [facility] Primary Care Provider [phone] Reason for Visit * Reason Comments Med Refill Encounter Details Date Type Department Care Team (Late st Contact Info) Description 01/02/2024 Refill [facility] CHC MED & PEDS [address] [place], [place] [phone] Roberto, [facility] 230 [facility] [place] [address] Nontraumatic incomplete tear of rotator cuff, unspecified [...] Description 05/27/2025 9:00 AM EST Office Visit [address] [address] Carmen Mejia FNP [address] [place] [address] 07/30/2025 11:00 AM EST Office Visit [address] [address] documented as of this encounter Visit Diagnoses Diagnosis Nontraumatic incomplete tear of rotator cuff, unspecified laterality documented in this encounter Additional Health Concerns Assessment Noted Time PHQ-9 Depression Total Score: 0 11/09/19 24 9:34 AM EDT documented as of this encounter Care Teams [employer] Relationship Specialty Start Date End Date Carmen Mejia FNP [address] [place] [address] PCP - General Family Medicine 03/18/21 documented as of this encounter
== END 2025-05-13 12:06 | disposition home or self-care (01) ==
LOC: HO.HGS 11:12
PROVIDERS: PCP Registered Nurse; Visit Provider Surgery
DX: L72.3 Sebaceous cyst (principal)
CPT/HCPCS: 11422

== ENCOUNTER 2025-05-21 10:21 | Outpatient (AMB) | payer OTHER, SELFPAY ==
--- NOTE | 2025-05-21 10:25 | MHC.OFFVIS ---
Vital Signs 05/21/25 10:30 Height 5 ft 8 in Weight 205 lb BMI 31.2 Intake Visit Reasons: s/p excise skin nodule Intake Note: Patient presents for suture removal s/p excision Sebaceous cyst. (05/13/2025 GAGAN) Pt c/o: reports no complaints. Back Feeder Plywood Layup Line Required: No Accompanied by: Self / Same As Patient Allergies avocado (AVOCADO) Allergy (Severe, Verified 05/21/25 10:31) HIVES/SOB lisinopril Allergy (Severe, Verified 05/21/25 10:31) Unknown passion fruit (PASSION FRUIT) Allergy (Severe, Verified 05/21/25 10:31) HIVES/SOB sacubitril (Entresto) Allergy (Severe, Verified 05/21/25 10:31) Unknown valsartan (Entresto) Allergy (Severe, Verified 05/21/25 10:31) Unknown soy (SOY) Allergy (Unknown, Verified 05/21/25 10:31) SWELLING acetaminophen (From Percocet) Adverse Reaction (Verified 05/21/25 10:31) Gastrointestinal Upset oxycodone (From Percocet) Adverse Reaction (Verified 05/21/25 10:31) Gastrointestinal Upset HPI HPI s/p excise skin nodule: Details: Doing well, no concerns. Has become itchy. Initially had small bleeding for the 1st 2 days but this has resolved. Denies fevers at home. [facility] Medical History HFrEF (heart failure with reduced ejection fraction) ICD (implantable cardioverter-defibrillator) in place Nonischemic cardiomyopathy HTN (hypertension) Diabetes mellitus CAD (coronary artery disease) Surgical History (Updated 05/21/25 @ 10:44 by Chao Mcmanus PA-C) History of removal of cyst (~05/13/25) History of carpal tunnel surgery H/O colonoscopy History of cardiac cath (~2016) Family History Father No problems noted. Mother No problems noted. Social History Household Members: Spouse Alcohol intake: former Patient Tobacco Use Status: Former Tobacco user Second Hand Smoke Exposure: No Review of Systems Const All systems reviewed & are unremarkable except as noted in HPI and below Physical Exam Vital Signs: BMI result Body Mass Index 31.2 Assessment & Plan Assessment & Plan (1) History of removal of cyst: Onset Date: ~05/13/25 Comment: Epidermal inclusion cyst- Code(s): Z98.890 - Other specified postprocedural states Category: Surgical (2) Epidermal inclusion cyst: Code(s): L72.0 - Epidermal cyst Category: Medical Plan 60-year-old male s/p excision of cyst on right posterior neck with Dr. Willett as on 05/13/2025 returning office for suture removal and wound check. Overall patient doing well initially had some bleeding for the 1st 2 days postop but this has resolved. Denies any fevers at home. Denies any other discharge from wound. Sutures are become itchy would like to have him taken out today. Reviewed the pathology report, patient given copy results showing benign epidermal inclusion cyst with evidence of rupture. On exam the wound appears to be healing well no evidence of infection at this time. Four sutures removed in office without complication. Patient on warfarin follow-up can return as needed with any questions or concerns in the future. Coding Level of Care Code Est Pt Level 4 (33866) Diagnoses History of removal of cyst Z98.890 Epidermal inclusion cyst L72.0
[2025-05-21 10:30] VITALS: BMI 31.2
--- OUTSIDE RECORDS SUMMARY | 2025-05-21 11:50 | XMS_ITS | Encounter Summary ---
Author Organization [employer] Address 75 [facility] 7t [place] [address] Care Team Providers Care Wool Handler Name Role Phone Carmen Mejia CURRICULUM COUNSELOR Primary Care Provider [phone] Reason for Visit * Reason Onset Date Comments denture appt PA 11/02/2022 Encounter Details Date Type Department Care Team (Late st Contact Info) Description 11/02/2022 Telephone [facility] ADULT DENTAL 230 [place] [address] Bal Aponte, DMD 230 [place] [address] denture appt PA Social History Tobacco Use [...] Care Team (Late st Contact Info) Description 06/26/2025 9:00 AM EST Office Visit [address] [address] Carmen Mejia FNP [address] [place] [address] 07/30/2025 11:00 AM EST Office Visit [address] [address] documented as of this encounter Visit Diagnoses Not on filedocumented in this encounter Additional Health Concerns Assessment Noted Time PHQ-9 Depression Total Score: 0 10/15/19 23 8:58 AM EDT documented as of this encounter Care Teams Wool Handler Relationship Specialty Start Date End Date Carmen Mejia FNP [address] [place] [address] PCP - General Family Medicine 03/18/21 documented as of this encounter
--- OUTSIDE RECORDS SUMMARY | 2025-05-21 11:50 | XMS_ITS | Encounter Summary ---
Author Organization [employer] Address 75 [facility] 7t [place] [address] Care Team Providers Care Project Production Engineer Name Role Phone Carmen Mejia [facility] Primary Care Provider [phone] Reason for Visit * Reason Comments Med Refill Encounter Details Date Type Department Care Team (Late st Contact Info) Description 11/16/2022 Refill [facility] MEDICINE [address] [place] [address] Melani Haider FNP [address] [place], [place] [phone] Other chronic pain Social History Tobacco Use [...] Description 06/26/2025 9:00 AM EST Office Visit [facility] MEDICINE [address] [place] [address] Roberto Carmen [facility] 230 [place] [address] 07/30/2025 11:00 AM EST Office Visit [facility] MEDICINE 230 [place] [address] documented as of this encounter Visit Diagnoses Diagnosis Other chronic pain documented in this encounter Additional Health Concerns Assessment Noted Time PHQ-9 Depression Total Score: 0 10/15/19 23 8:58 AM EDT documented as of this encounter Care Teams Project Production Engineer Relationship Specialty Start Date End Date Carmen Mejia FNP 230 [place] [address] PCP - General Family Medicine 03/18/21 documented as of this encounter
--- OUTSIDE RECORDS SUMMARY | 2025-05-21 11:50 | XMS_ITS | Clinical Summary ---
Author Organization [employer] Address [address] [place] [address] Care Team Providers Care Cupboard Builder Name Role Phone Roberto [facility] Primary Care Provider [phone] Allergies Active Allergy Reactions Criticality Noted Date [...] 1 TABLET BY MOUTH EVERY MORNING (CALL [phone] FOR APPOINTMENT (Dr. Pillai)) 023 Active carvedilol (Coreg) 25 MG tablet TAKE 1 TABLET BY MOUTH TWICE DAILY IN THE MORNING AND IN THE EVENING WITH FOOD 023 Active atorvastatin (Lipitor) 40 MG tablet Take 40 mg by mouth at bedtime. 023 Active Aspirin Low Dose 81 MG EC tablet TAKE 1 TABLET BY MOUTH EVERY MORNING (CALL [phone] FOR APPOINTMENT (Dr. Pillai )) 023 Active [...] TO 6 HOURS NEEDED 18 g 2 05/21/20 25 11:37 AM EST 025 Active glucose blood (FREESTYLE LITE) test [...] to injection as directed 100 each 11 05/21/20 25 11:37 AM EST 025 Active Lancets 33G miscIndications: Diabetes mellitus [...] SUGAR THREE TIMES DAILY 100 each 11 05/21/20 25 11:37 AM EST 025 Active omeprazole (PriLOSEC) [address] capsuleIndicatio ns:Dysphagia, unspecified type TAKE 1 CAPSULE BY MOUTH TWICE DAILY 60 capsule 3 025 Active cetirizine (ZyrTEC) 10 MG tabletIndication s:Moderate persistent asthma without complication TAKE 1 TABLET BY MOUTH EVERY MORNING 30 tablet 5 05/21/20 25 11:37 AM EST 025 Active Multiple Vitamin (Multivitamin) tabletIndication s:Diabetes mellitus type 2 with neurological manifestations (HCC) TAKE 1 TABLET BY MOUTH EVERY MORNING 30 tablet 5 05/21/20 25 11:37 AM EST 025 Active cyanocobalamin (Vitamin B-12) 1000 MCG tablet TAKE 1 TABLET BY MOUTH EVERY MORNING 30 tablet 5 025 Active Tirzepatide (Mounjaro) 7.5 MG/0.5ML solution auto-injectorInd ications:Type 2 diabetes mellitus with hyperglycemia, without long-term current use of insulin ([facility]) Inject 7.5 mg under the skin 1 (one) time per week. 2 mL 3 05/21/20 25 11:37 AM EST 025 Active metFORMIN (Glucophage) 1000 MG tabletIndication s:Diabetes mellitus type 2 with neurological manifestations (HCC) TAKE 1 TABLET BY MOUTH TWICE DAILY IN THE MORNING AND IN THE EVENING WITH MEALS 180 tablet 1 025 Active zolpidem (Ambien) 5 MG tabletIndication s:Primary insomnia TAKE 1 TABLET BY MOUTH AT BEDTIME 30 tablet 1 05/21/20 25 11:37 AM EST 025 Active acetaminophen-co deine (Tylenol w/ Codeine #4) 300-60 MG tabletIndication s:Nontraumatic incomplete tear of rotator cuff, unspecified laterality TAKE 1 TABLET BY MOUTH EVERY 8 HOURS NEEDED FOR MODERATE PAIN 84 tablet 05/02/20 25 12:04 PM EST 025 Active Jardiance 25 MGIndications:Ty pe 2 diabetes mellitus with other specified complication, without long-term current use of insulin ([facility]) TAKE 1 TABLET BY MOUTH EVERY MORNING 30 tablet 3 025 Active citalopram (CeleXA) 10 MG tabletIndication s:Mood disorder (CMS/HCC) TAKE 1 TABLET BY MOUTH EVERY MORNING 30 tablet 3 05/21/20 25 11:37 AM EST 025 Active citalopram (CeleXA) 20 MG tabletIndication s:Mood disorder (CMS/HCC) TAKE 1 TABLET BY MOUTH EVERY MORNING 30 tablet 3 Active QUEtiapine (SEROquel) 50 MG tabletIndication s:Type 2 diabetes mellitus with other specified complication, without long-term current use of insulin ([facility]) TAKE 2 TABLETS BY MOUTH EVERY DAY AT BEDTIME 60 tablet 3 Active budesonide-formo terol (Symbicort) 160-4.5 MCG/ACT inhalerIndicatio ns:Chronic obstructive pulmonary disease, unspecified COPD type (CMS/HCC) ([facility]) INHALE 2 PUFFS BY MOUTH TWICE DAILY IN THE MORNING AND IN THE EVENING RINSE MOUTH AFTER USING. 10.2 g 3 05/21/20 25 11:37 AM EST Active budesonide-formo terol (Symbicort) 160-4.5 MCG/ACT inhalerIndicatio ns:Chronic obstructive pulmonary disease, unspecified COPD type (CMS/HCC) ([facility]) INHALE 2 PUFFS BY MOUTH TWICE DAILY IN THE MORNING AND IN THE EVENING RINSE MOUTH AFTER USING. 10.2 g 3 025 2024 Discontinued(R eorder (will not trigger notification to Pharmacy)) QUEtiapine (SEROquel) 50 MG tabletIndication s:Type 2 diabetes mellitus with other specified complication, without long-term current use of insulin ([facility]) TAKE 2 TABLETS BY MOUTH EVERY DAY AT BEDTIME 60 tablet 3 2024 Discontinued Jardiance 25 MGIndications:Ty pe 2 diabetes mellitus with other specified complication, without long-term current use of insulin ([facility]) TAKE 1 TABLET BY MOUTH EVERY MORNING 30 tablet 3 2024 Discontinued citalopram (CeleXA) 20 MG tabletIndication s:Mood disorder (CMS/HCC) TAKE 1 TABLET BY MOUTH EVERY MORNING 30 tablet 3 025 2024 Discontinued citalopram (CeleXA) 10 MG tabletIndication s:Mood disorder (CMS/HCC) TAKE 1 TABLET BY MOUTH EVERY MORNING 30 tablet 3 025 2024 Discontinued acetaminophen-co deine (Tylenol w/ [...] candidate) Tier III (Q6 month visits) Last PLANT CARE WORKER Agreement: 09/25/24 Assessment & Plan (04/30/2025 2:21 PM EST): Timeline: - 07/17/24: Group visit, Utox/pill count as expected - 09/25/24: Group Visit, utox/pill count as expected - 11/27/24: Group visit, utox/pill count as expected - 04/30/25: Group visit, utox/pill count as expected Assessment & Plan (11/29/2024 3:16 PM EDT): Timeline: - 11/17/23: PLANT CARE WORKER Agreement, Utox/pill count as expected - 12/13/23: [...] (09/25/2024 2:43 PM EDT): Timeline: - 11/17/23: PLANT CARE WORKER Agreement, Utox/pill count as expected - 12/13/23: [...] (07/24/2024 3:07 PM EST): Timeline: - 11/17/23: PLANT CARE WORKER Agreement, Utox/pill count as expected - 12/13/23: NCNS to Group visit - 12/27/23: Initial Group Visit, Utox/pill count as expected - 01/31/24: Group visit, Utox/pill count as expected - 03/13/24: Group visit, Utox/pill count as expected - 05/15/24: Group visit, Utox/pill count as expected - 07/17/24: Group visit, Utox/pill count as expected Assessment & Plan (05/15/2024 6:31 PM EST): Timeline: - 11/17/23: PLANT CARE WORKER Agreement, Utox/pill count as expected - 12/13/23: [...] 07/20/2022 Overview (07/20/2022): Followed by cardiology at [facility]. Hx of reduced ejection fraction that has [...] managing pain with Tylenol #4. Compliant with PLANT CARE WORKER agreement Followed by [facility] pain mnmt. Assessment & Plan (04/30/2025 2:20 [...] Healthcare maintenance 07/20/2022 Overview (04/28/2023): CRC: 2016 [facility] 10 year f/u PSA: 07/2022 0.57 HIV: Negative 2019 Hepatitis: Negative HCV 2019 Declines covid vaccine Assessment & Plan (01/13/2023 10:32 AM EDT): - Will request [facility] colonoscopy records Carpal tunnel syndrome on both sides 07/20/2022 Overview (07/20/2022): EMG 12/2021-bilateral moderate-severe ulnar and median neuropathy and bilateral anahy guber anastamosis Seen by [facility] Dr. Nixon 04/2022; surgical candidate would require [...] Essential hypertension 07/14/2017 Overview (10/15/2022): Followed by [facility] cardiology Hydralazine 50mg b.i.d Carvediol 25mg b.i.d [...] Erectile dysfunction 12/04/2015 Overview (07/20/2022): Followed by [facility] urology and receives SQ testosterone Hypogonadism male 12/04/2015 Mixed hyperlipidemia 12/04/2015 Overview (10/15/2022): Atorvastatin 40mg daily Assessment & Plan (10/15/2022 3:42 PM EDT): Continue current regimen [place] (myocardial infarction) 12/04/2015 Encounters Date Type Department Care Team Description 05/13/2025 Orders Only GENERIC EXTERNAL DATA DEPARTMENT Provider, Generic External Data 05/13/2025 Patient Outreach [facility] [address] [place] [address] Carmen Mejia FNP Pre-visit Planning (SDOH screening completed on 10/29/2024) 05/08/2025 Refill [facility] [address] [place] [address] Unique Thompson MD Type 2 diabetes mellitus with other specified complication, without long-term current use of insulin (HCC); Mood disorder (CMS/HCC); Chronic obstructive pulmonary disease, unspecified COPD type (CMS/HCC) (HCC) 05/08/2025 Refill [facility] [address] [place] [address] Carmen Mejia FNP Chronic obstructive pulmonary disease, unspecified COPD type (CMS/HCC) (HCC) 04/30/2025 11:00 AM EST Office Visit [facility] [address] [place] [address] Melani Haider FNP Traumatic incomplete tear of left rotator cuff, subsequent encounter (Primary Dx); Long-term current use of opiate analgesic 04/30/2025 Travel 04/29/2025 Refill [facility] [address] [place], [place] [phone] Carie Mcmillan MD Nontraumatic incomplete tear of rotator cuff, unspecified laterality 04/23/2025 Telephone [facility] [address] [place] [address] [place] Carmen [facility] Appointment Request 04/14/2025 Refill [facility] [address] [place] [address] Ritika Boles, DO Primary insomnia 03/28/[address] [address] [place] Carmen [facility] Appointment Request 03/22/2025 Refill [facility] [address] [place], [place] [phone] [place] Carmen [facility] Nontraumatic incomplete tear of rotator cuff, unspecified laterality 03/11/2025 Refill [facility] [address] [place] [address] [place] Carmen [facility] 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) 02/25/2025 9:00 AM EDT Office Visit [address] [address] [place] Carmen [facility] Type 2 diabetes mellitus with hyperglycemia, without long-term current use of insulin (CMS/[facility]) (Primary Dx); Erythematous skin nodule; Osteoarthritis of left knee, unspecified osteoarthritis type 02/25/2025 Telephone [facility] [address] [place] [address] Roberto, Carmen [facility] Referral 02/25/2025 Travel 02/22/[address] [address] [place] Carmen [facility] Chart Prep 02/20/2025 Refill [facility] [address] [place] [address] [facility] [facility] Nontraumatic incomplete tear of rotator cuff, unspecified laterality from Last 3 Months Immunizations Immunization Administration [...] Description 06/26/2025 9:00 AM EST Office Visit [address] [address] 07/30/2025 11:00 AM EST Office Visit [address] [address] Health Maintenance Due Date Last Done Comments [...] Plan Patient has chronic kidney disease No AgKacy beard Weekly blood pressure task Care Plan Weekly [...] Plan Patient has chronic kidney disease No BetzaidaGordonie Weekly blood pressure task Care Plan Weekly blood pressure task No Dilip Dia Weekly blood pressure task Care Plan Weekly blood pressure task No Dilip, Dia Weekly blood pressure task Care Plan Weekly blood pressure task No Dilip Dia Patient has diabetic eye disease Care Plan Patient has diabetic eye disease No Dilip, Dia Patient has diabetic eye disease Care Plan Patient has diabetic eye disease No Dilip, Dia Patient has diabetic eye disease Care Plan Patient has diabetic eye disease No Dilip, Dia Patient has chronic kidney disease Care Plan Patient has chronic kidney disease No Dilip, Dia Patient has chronic kidney disease Care Plan Patient has chronic kidney disease No Dilip, Dia Patient has chronic kidney disease Care Plan Patient has chronic kidney disease No Dilip, Dia Procedures Procedure Name Priority Date/Time Associated Diagnosis Comments GROSS AND MICROSCOPIC LEVEL 3 Routine 05/13/2025 12:02 PM EST POCT KINA-14 URINE DRUG SCREEN Routine 04/30/2025 11:59 AM EST Traumatic incomplete tear of left rotator cuff, subsequent encounter Long-term current use of opiate analgesic POCT GLYCATED HEMOGLOBIN, TOTAL Routine 02/25/2025 8:53 AM EDT Type 2 diabetes mellitus with hyperglycemia, without long-term current use of insulin ([facility]) POCT GLUCOSE Routine 02/25/2025 8:51 AM [...] Recently Relevant to Health Maintenance Results * Gross and Microscopic Level 3 (05/13/2025 12:02 PM EST) 05/13/2025 12:0 2 PM EST 05/13/2025 12:18 PM EST [facility] - 05/14/2025 11:56 AM EST ----- ------- Name: Andry Lehman Age/Sex: 60/M : 1965 Unit#: [id number] Attend Dr: Alexx Santoyo MD Re05/13/25 Status: DEP REF Location: HO.LNP Disch: ----- ------- SPEC : [id number] RECD: 05/13/25 STATUS: CLARK DIAS NUM: [id number] KATHY: 05/13/25-[address] [facility] [address]: Alexx Santoyo MD ENTERED: 05/13/25 SP TYPE: Surgical OTHR DR: Carmen Mejia [facility] ORDERED: Gross Micro L3 Diagnosis Skin, posterior right neck cyst, excision: Benign ruptured epidermal cyst with inflammation, fibrosis, granulation tissue, and foreign body giant cell reaction. Clinical History Sebaceous cyst posterior right neck Microscopic Description Microscopic sections reviewed. Material Received Sebaceous cyst posterior right neck Gross Description Received in formalin is a 2.3 x 1.5 x 1.5 cm portion of fibrous subcutaneous tissue, partially surfaced by a 2.2 x 0.6 cm ellipse of white grossly unremarkable skin. Sectioning reveals cooper gelatinous softening within the deep fibrous subcutaneous tissue, without additional discrete abnormalities. Tanker Truck Driver sections are submitted in cassette A1. (DTL) IHC S/NG Disclaimer NOTE: Unless otherwise stated, all tissue is formalin-fixed and paraffin-embedded. Some or all of the immunohistochemical tests reported herein may have been developed and their performance characteristics determined by [facility]. They have not been cleared or approved by the U.S. Food and Drug Administration (FDA). However, the FDA has determined that such clearance or approval is not necessary. This laboratory is certified under the Clinical Laboratory Improvement Amendments of 1988 (CLIA) as qualified to perform high complexity clinical laboratory testing. Copies To: Alexx Santoyo MD [facility] Surgeons [address] [place] [phone] CONTINUED ON NEXT PAGE ----- ------- Name: Andry Lehman Age/Sex: 60/M : 1965 Unit#: [id number] Attend Dr: Alexx Santoyo MD Re05/13/25 Status: DEP REF Location: HO.LNP Disch: ----- ------- SPEC : [id number] RECD: 05/13/25 STATUS: CLARK DIAS NUM: [id number] KATHY: 05/13/[address]: Alexx Santoyo MD ENTERED: 05/13/25-1220 SP TYPE: Surgical OTHR DR: Carmen Mejia ORDERED: Gross Micro L3 Copies To: (Continued) Carmen Mejia [address] [address] ----- ------- Signed (signature on file) Aleyda Butler MD 05/14/25 1156 ----- ------- END OF REPORT Generic External Data Provider LAB CYTOLOGY DANYELLE DAWSON Final Result [facility] [address] [place] [address] [phone] * (ABNORMAL) POCT KINA-14 Urine Drug [...] - 04/30/2025 11:59 AM EST .UTOX cup Lot#[id number] Exp. 05/20/26 Internal Pass Control Melani Haider MARITIME PILOT POINT OF CARE TEST ENTER/EDIT ORDERABLES Final Result * (ABNORMAL) POCT Hgb A1c (02/25/2025 8:53 AM EDT) Pathologist [facility] Hemoglobin A1C 8.4(A) 4.0 - 5.7 % Blood 02/25/2025 8:53 AM EDT [facility] MARITIME PILOT POINT OF CARE TEST ENTER/EDIT ORDERABLES Final Result * (ABNORMAL) POCT Glucose (02/25/2025 8:51 AM EDT) Glucose Blood, POC 231(A) 60 - 200 mg/dL Blood Capillary blood specimen / Unknown 02/25/2025 8:51 AM EDT [facility] POINT OF CARE TEST ENTER/EDIT ORDERABLES Final Result * (ABNORMAL) Albumin, Random Urine W/Creatinine (11/26/2024 10:47 AM EDT) Creatinine, Urine 43.29 mg/dL [facility] Microalbumin Urine 53.0 mg/L H [facility] Microalbum Creatinine Ratio Ur 122.4(H) <30 ug/mg cr [facility] Comment:Albumin/Creatinine R atio Reference Ranges: Normal: < 30 ug/mg creatinine Microalbuminuria: 30 - 300 ug/mg creatinineClinical Albuminuria: > 300 ug/mg creatinine Urine 11/26/2024 10:4 7 AM EDT 11/26/2024 1:02 PM EDT [facility] LAB URINE ORDERABLES Final Re sult Performing Organization Address City/State/[facility] Co de Phone Number [facility] [address] [place] [phone] * Lipid Panel, Standard (11/26/2024 10:47 AM EDT) Triglycerides 125 <150 mg/dL [facility] Comment:Desirable Triglyceri de: less than 150 mg/dLBorderline High Triglyceride 150-199 mg/dLHigh Triglyceride: 200-499 mg/dLVery High Triglyceride: greater than or equal to 5OO mg/dL Cholesterol 127 <200 mg/dL [facility] Comment:Desirable Cholestero l: less than 200 mg/dLBorderline High Cholesterol: 200-239 mg/dLHigh Cholesterol: greater than 239 mg/dL LDL Cholesterol Calculated 59 <100 mg/dL [facility] Comment:Desirable LDL: less than 100 mg/dLNear Optimal/Above Optimal LDL: 110- 129 mg/dLBorderline High LDL: 130-159 mg/dLHigh LDL: 160-189 mg/dLVery High LDL: greater than or equal to 190 mg/dL HDL Cholesterol 43 >40 mg/dL [facility] Comment:Desirable HDL: great er than 40 mg/dL Note: This HDL assay may give artificially low results in patients with liver disease. Blood Venous blood specimen / Unknown 11/26/2024 10:47 AM EDT 11/26/2024 1:17 PM EDT [facility] MARITIME PILOT LAB BLOOD ORDERABLES Final Re sult [facility] [address] [place] [address] [phone] * HEPATITIS C AB W/REFL TO HCV RNA, QN, PCR (02/27/2020 9:28 AM EDT) HEPATITIS C ANTIBODY NON-REACT LAYNE NON-REACT LAYNE [facility] INDEX 0.02 <1.00 [facility] Comment: HCV antibody was non-reactive. There is no laboratory evidence of HCV infection. In most cases, no further action is required. However, if recent HCV exposure is suspected, a test for HCV RNA (test code 42567) is suggested. For additional information please refer to http://education.AquaBlok/faq/DOS43w8 (This link is being provided for informational/ educational purposes only.) 02/27/2020 9:28 AM EDT Marcos Robles MARITIME PILOT HISTORICAL/NON ORDERABLE LA BS Final Result [facility] [address] * HIV 1/2 ANTIGEN/ANTIBODY,FOURTH GENERATION W/RFL (02/27/2020 9:28 AM EDT) HIV-1/2 ANTIGEN AND ANTIBODIES, 4TH GENERATION W/ REFLEX NON-REACT LAYNE NON-REACT LAYNE [facility] Comment: HIV-1 antigen and HIV-1/HIV-2 [...] purpose. For additional information please refer to http://education.AquaBlok/faq/RMQ216 (This link is being provided for informational/ educational purposes only.) The performance of this assay has not been clinically validated in patients less than 2 years old. 02/27/2020 9:28 AM EDT Marcos Robles MARITIME PILOT LAB BLOOD ORDERABLES Final Result [facility] [address] * (ABNORMAL) Colonoscopy (06/20/2015) Colonoscopy Abnormal( [...] 05/13/2025 Patient has chronic kidney disease 05/13/2025 Weekly blood pressure task 05/14/2025 Weekly blood pressure task 05/14/2025 Weekly blood pressure task 05/14/2025 Patient has diabetic eye disease 05/14/2025 Patient has diabetic eye disease 05/14/2025 Patient has diabetic eye disease 05/14/2025 Patient has chronic kidney disease 05/14/2025 Patient has chronic kidney disease 05/14/2025 Patient has chronic kidney disease 05/14/2025 Insurance [facility] Care Teams Cupboard Builder Relationship Specialty Start Date End Date Carmen Mejia FNP [address] [place] [phone] PCP - General Family Medicine 03/18/21
--- OUTSIDE RECORDS SUMMARY | 2025-05-21 11:50 | XMS_ITS | Encounter Summary ---
Author Organization [employer] Address [address] [facility] 7[address] [place] [address] Care Team Providers Care Movable Bulkhead Installer Name Role Phone Carmen Mejia DOCTOR OF PODIATRIC MEDICINE Primary Care Provider [phone] Encounter Details Date Type Department Care Team (Late Contact Info) Description 07/07/2022 Orders Only [facility] [address] [place], [place] [phone] Ritika Mcgovern LPN Social History Tobacco Use [...] Description 06/26/2025 9:00 AM EST Office Visit [facility] [address] [place] [phone] Carmen Mejia FNP [address] [place] [address] 07/30/2025 11:00 AM EST Office Visit [address] [address] documented as of this encounter Visit Diagnoses Not on filedocumented in this encounter Care Teams Movable Bulkhead Installer Relationship Specialty Start Date End Date Carmen Mejia FNP [address] [place] [place] [phone] PCP - General Family Medicine 03/18/21 documented as of this encounter
--- OUTSIDE RECORDS SUMMARY | 2025-05-21 11:50 | XMS_ITS | Encounter Summary ---
Author Organization [employer] Address [address] [facility] [address]t [place] [address] Care Team Providers Care Recreation Technician Name Role Phone Carmen Mejia [facility] Primary Care Provider [phone] Encounter Details Date Type Department Care Team (Late st Contact Info) Description 06/11/2022 Orders Only [facility] [address] [place] [address] Ritika Mcgovern LPN Social History Tobacco Use [...] Description 06/26/2025 9:00 AM EST Office Visit [facility] [address] [place] [phone] Carmen Mejia [facility] [address] [place] [address] 07/30/2025 11:00 AM EST Office Visit [facility] [address] [place] [address] documented as of this encounter Visit Diagnoses Not on filedocumented in this encounter Care Teams Recreation Technician Relationship Specialty Start Date End Date Carmen Mejia FNP [address] [place] [phone] PCP - General Family Medicine 03/18/21 documented as of this encounter
--- OUTSIDE RECORDS SUMMARY | 2025-05-21 11:50 | XMS_ITS | Encounter Summary ---
Author Organization [employer] Address [address] [facility] 7t [place] [address] Care Team Providers Care Demo Event Specialist Name Role Phone Carmen Mejia [facility] Primary Care Provider [phone] Reason for Visit * Reason Comments Med Refill Encounter Details Date Type Department Care Team (Late st Contact Info) Description 01/08/2024 Refill [facility] [address] [place], [place] [phone] [facility] [address] [place] [address] Moderate persistent asthma without complication Social History [...] Description 06/26/2025 9:00 AM EST Office Visit [facility] [address] [place] [phone] Carmen Mejia FNP [address] [place] [address] 07/30/2025 11:00 AM EST Office Visit [address] [address] documented as of this encounter Visit Diagnoses Diagnosis Moderate persistent asthma without complication documented in this encounter Additional Health Concerns Assessment Noted Time PHQ-9 Depression Total Score: 0 11/09/19 24 9:34 AM EDT documented as of this encounter Care Teams Demo Event Specialist Relationship Specialty Start Date End Date Carmen Mejia FNP [address] [place] [phone] PCP - General Family Medicine 03/18/21 documented as of this encounter
--- OUTSIDE RECORDS SUMMARY | 2025-05-21 11:50 | XMS_ITS | Encounter Summary ---
Author Organization [employer] Address [address] [place] [address] 7t [place] [address] Care Team Providers Care Stem Roller Or Crusher Operator Name Role Phone [place] [facility] Primary Care Provider [phone] Reason for Visit * Reason Comments Med Refill Encounter Details Date Type Department Care Team (Late st Contact Info) Description 11/18/2022 Refill [facility] [address] [place] [address] [phone] [facility] [address] [place], [place] [phone] Primary insomnia; Type 2 diabetes mellitus with other specified complication, without long-term current use of insulin ([facility]) Social History Tobacco Use Types Packs/Day [...] Description 06/26/2025 9:00 AM EST Office Visit [facility] [address] [place] [address] [phone] [facility] [address] [place] [address] 07/30/2025 11:00 AM EST Office Visit [facility] [address] [place] [address] documented as of this encounter Visit Diagnoses Diagnosis Primary insomnia Persistent disorder of initiating or maintaining sleep Type 2 diabetes mellitus with other specified complication, without long-term current use of insulin (HCC) documented in this encounter Additional Health Concerns Assessment Noted Time PHQ-9 Depression Total Score: 0 10/15/19 23 8:58 AM EDT documented as of this encounter Care Teams Stem Roller Or Crusher Operator Relationship Specialty Start Date End Date Carmen Mejia FNP [address] [place] [address] PCP - General Family Medicine 03/18/21 documented as of this encounter
--- OUTSIDE RECORDS SUMMARY | 2025-05-21 11:50 | XMS_ITS | Encounter Summary ---
Author Organization [employer] Address [address] [facility] 7t [place] [address] Care Team Providers Care Compensation Manager Name Role Phone Roberto [facility] Primary Care Provider [phone] Reason for Visit * Reason Comments Med Refill Encounter Details Date Type Department Care Team (Late st Contact Info) Description 01/05/2025 Refill [facility] [address] [place], [place] [phone] [facility] 230 [place] [address] Diabetes mellitus type 2 with neurological manifestations [...] [facility] [address] [place] [address] Carmen Mejia FNP 230 [place] [address] 07/30/2025 11:00 AM EST Office Visit [address] [address] documented as of this encounter Visit Diagnoses Diagnosis Diabetes mellitus type 2 with neurological manifestations (HCC) documented in this encounter Additional Health Concerns Assessment Noted Time PHQ-9 Depression Total Score: 0 11/06/19 25 8:57 AM EDT documented as of this encounter Care Teams Compensation Manager Relationship Specialty Start Date End Date Carmen Mejia FNP [address] [place] [address] PCP - General Family Medicine 03/18/21 documented as of this encounter
--- OUTSIDE RECORDS SUMMARY | 2025-05-21 11:50 | XMS_ITS | Encounter Summary ---
Author Organization [employer] Address [address] [facility] 7t [place] [address] Care Team Providers Care Accounts Receivable Analyst Name Role Phone Carmen Mejia [facility] Primary Care Provider [phone] Encounter Details Date Type Department Care Team (Late Contact Info) Description 03/07/[address] [facility] [address] [place] [address] Shannon Sargent LPN Social History Tobacco Use [...] Department Care Team (Late Contact Info) Description 06/26/2025 9:00 AM EST Office Visit [facility] [address] [place] [address] [facility] 230 [place] [address] 07/30/2025 11:00 AM EST Office Visit [facility] [address] [place] [address] documented as of this encounter Visit Diagnoses Not on filedocumented in this encounter Additional Health Concerns Assessment Noted Time PHQ-9 Depression Total Score: 0 01/14/20 23 9:12 AM EDT documented as of this encounter Care Teams Accounts Receivable Analyst Relationship Specialty Start Date End Date Roberto, STEVEN Morales [address] [place] [address] PCP - General Family Medicine 03/18/21 documented as of this encounter
--- OUTSIDE RECORDS SUMMARY | 2025-05-21 11:50 | XMS_ITS | Encounter Summary ---
Author Organization [employer] Address [address] [place] [address] 7t [place] [address] Care Team Providers Care Reel Slitter Name Role Phone Carmen Mejia [facility] Primary Care Provider Encounter Details Date Type Department Care Team (Late st Contact Info) Description 07/08/2022 Orders Only [address] [address] Shannon Sargent LPN Social History Tobacco Use [...] 06/26/2025 9:00 AM EST Office Visit [address] [address] Carmen Mejia FNP [address] [place] [address] 07/30/2025 11:00 AM EST Office Visit [address] [address] documented as of this encounter Visit Diagnoses Not on filedocumented in this encounter Care Teams Reel Slitter Relationship Specialty Start Date End Date Carmen Mejia FNP [address] [place] [address] PCP - General Family Medicine 03/18/21 documented as of this encounter
--- OUTSIDE RECORDS SUMMARY | 2025-05-21 11:50 | XMS_ITS | Encounter Summary ---
Author Organization [employer] Address [address] [facility] 7t [place] [address] Care Team Providers Care Sheeter Operator Name Role Phone Carmne Mejia [facility] Primary Care Provider [phone] Encounter Details Date Type Department Care Team (Late Contact Info) Description 10/15/2022 Orders Only [facility] & PEDS [address] [place], [place] [phone] Ritika Mcgovern LPN Social History Tobacco Use [...] Description 06/26/2025 9:00 AM EST Office Visit [address] [address] Carmen Mejia [facility] 230 [place] [address] 07/30/2025 11:00 AM EST Office Visit [address] [address] documented as of this encounter Visit Diagnoses Not on filedocumented in this encounter Additional Health Concerns Assessment Noted Time PHQ-9 Depression Total Score: 0 10/15/19 23 8:58 AM EDT documented as of this encounter Care Teams Sheeter Operator Relationship Specialty Start Date End Date Carmen Mejia FNP [address] [place] [address] PCP - General Family Medicine 03/18/21 documented as of this encounter
--- OUTSIDE RECORDS SUMMARY | 2025-05-21 11:50 | XMS_ITS | Encounter Summary ---
Author Organization [employer] Address [address] [facility] 7t [place] [address] Care Team Providers Care Hot Tar Roofer Name Role Phone Roberto [facility] Primary Care Provider [phone] Reason for Visit * Reason Comments Med Refill Encounter Details Date Type Department Care Team (Late st Contact Info) Description 01/02/2024 Refill [facility] [address] [place], [place] [phone] Roberto, [facility] [address] [facility] [place] [address] Nontraumatic incomplete tear of rotator cuff, unspecified [...] Description 06/26/2025 9:00 AM EST Office Visit [address] [address] Carmen Mejia FNP [address] [place] [address] 07/30/2025 11:00 AM EST Office Visit [address] [address] documented as of this encounter Visit Diagnoses Diagnosis Nontraumatic incomplete tear of rotator cuff, unspecified laterality documented in this encounter Additional Health Concerns Assessment Noted Time PHQ-9 Depression Total Score: 0 11/09/19 24 9:34 AM EDT documented as of this encounter Care Teams Hot Tar Roofer Relationship Specialty Start Date End Date Carmen Mejia FNP [address] [place] [address] PCP - General Family Medicine 03/18/21 documented as of this encounter
--- OUTSIDE RECORDS SUMMARY | 2025-05-21 11:51 | XMS_ITS | Encounter Summary ---
Author Organization [employer] Address 75 [facility] 7t [place] [address] Care Team Providers Care Corrections Identification Technician Name Role Phone Carmen Mejia [facility] Primary Care Provider [phone] Reason for Visit * Reason Comments Med Refill Encounter Details Date Type Department Care Team (Late st Contact Info) Description 10/12/2023 Refill [facility] 230 [place], [place] [phone] Carmen Mejia [facility] 230 [place] [address] Primary insomnia Social History Tobacco Use Types [...] Description 06/26/2025 9:00 AM EST Office Visit [address] [address] Carmen Mejia FNP [address] [place] [address] 07/30/2025 11:00 AM EST Office Visit [address] [address] documented as of this encounter Visit Diagnoses Diagnosis Primary insomnia Persistent disorder of initiating or maintaining sleep documented in this encounter Additional Health Concerns Assessment Noted Time PHQ-9 Depression Total Score: 24 023 9:04 AM EDT documented as of this encounter Care Teams Corrections Identification Technician Relationship Specialty Start Date End Date Carmen Mejia FNP [address] [place] [address] PCP - General Family Medicine 03/18/21 documented as of this encounter
--- OUTSIDE RECORDS SUMMARY | 2025-05-21 11:51 | XMS_ITS | Encounter Summary ---
Author Organization [employer] Address [address] [facility] 7t [place] [address] Care Team Providers Care Supervisor Telephone Information Name Role Phone Carmen Mejia [facility] Primary Care Provider [phone] Encounter Details Date Type Department Care Team (Late st Contact Info) Description 05/05/2023 Abstract [facility] [address] [place] [address] Dia Gibson Social History Tobacco Use Types [...] Description 06/26/2025 9:00 AM EST Office Visit [facility] [address] [place] [address] Carmen Mejia FNP [address] [place] [address] 07/30/2025 11:00 AM EST Office Visit [address] [address] documented as of this encounter Visit Diagnoses Not on filedocumented in this encounter Additional Health Concerns Assessment Noted Time PHQ-9 Depression Total Score: 24 023 9:04 AM EDT documented as of this encounter Care Teams Supervisor Telephone Information Relationship Specialty Start Date End Date Carmen Mejia FNP [address] [place] [address] PCP - General Family Medicine 03/18/21 documented as of this encounter
--- OUTSIDE RECORDS SUMMARY | 2025-05-21 11:51 | XMS_ITS | Encounter Summary ---
Author Organization [employer] Address [address] [facility] 7t [place] [address] Care Team Providers Care Nurse Manager Name Role Phone Roberto [facility] Primary Care Provider Reason for Visit * Reason Comments Med Refill Encounter Details Date Type Department Care Team (Late st Contact Info) Description 01/03/2024 Refill [facility]S [address] [place], [place] [phone] Roberto, [facility] 230 [facility] [place] [address] Nontraumatic incomplete tear of rotator cuff, unspecified [...] 06/26/2025 9:00 AM EST Office Visit [address] [address] Carmen Mejia FNP [address] [place] [address] 07/30/2025 11:00 AM EST Office Visit [address] [address] documented as of this encounter Visit Diagnoses Diagnosis Nontraumatic incomplete tear of rotator cuff, unspecified laterality documented in this encounter Additional Health Concerns Assessment Noted Time PHQ-9 Depression Total Score: 0 11/09/19 24 9:34 AM EDT documented as of this encounter Care Teams Nurse Manager Relationship Specialty Start Date End Date Carmen Mejia FNP [address] [place] [address] PCP - General Family Medicine 03/18/21 documented as of this encounter
== END 2025-05-21 10:37 | disposition home or self-care (01) ==
LOC: HO.HGS 10:22
PROVIDERS: PCP Registered Nurse
DX: L72.0 Epidermal cyst (principal); Z98.890 Other specified postprocedural states
CPT/HCPCS: 99024

== ENCOUNTER → 2025-05-21 10:21 | Outpatient (BNVA) | payer OTHER, SELFPAY | PROVIDERS: PCP Registered Nurse | DX: L72.0 Epidermal cyst (principal); Z98.890 Other specified postprocedural states | CPT/HCPCS: 99212 ==

== ENCOUNTER 2025-05-27 08:52 | Outpatient (REF) | payer OTHER, SELFPAY ==
--- NOTE | ~2025-05-27 | XR_ITS ---
EXAMINATION: XR KNEE, LEFT CLINICAL INFORMATION: M25.562 - Pain in left knee COMPARISON: None available. TECHNIQUE: Single view of the left knee. AP bilateral knees one view FINDINGS: Left knee: No acute fracture or dislocation. Mild medial compartment joint space narrowing. Question bony spurring in the medial patella facet on the sunrise view. Soft tissues unremarkable Right knee: Visualized joint spaces are preserved. XR/XR knee LT 2V IMPRESSION: Left knee: Degenerative changes as above. Electronically signed by: Ralph Sage MD 05/27/2025 04:28 PM EST
== END 2025-05-27 08:53 | disposition home or self-care (01) ==
LOC: HO.HOSX 08:52
PROVIDERS: Visit Provider Physician Assistant
DX: M17.12 Unilateral primary osteoarthritis, left knee (principal); Z79.82 Long term (current) use of aspirin
CPT/HCPCS: 20610; 73560; 99212; J0665; J1100; J2003

== ENCOUNTER 2025-05-27 11:25 | Outpatient (AMB) | payer OTHER, SELFPAY ==
[2025-05-27 11:37] VITALS: BMI 31.2
--- NOTE | 2025-05-27 11:37 | MHC.OFFVIS ---
Vital Signs 05/27/25 11:37 Height 5 ft 8 in Weight 205 lb BMI 31.2 Intake Visit Reasons: New Prob- OA of left knee Intake Note: Cisto 60 yr old male presents today for a new problem visit for his left knee pain. States his pain has been on and off for the last 10 years. States his knee gives out when he is walking, difficulty twisting and bending, states he has to take his time for each knee movement. States he has never tried a knee brace or injection. Hx of neuropathy, DM and HBP. Hx of knee fracture 10 years ago (no surgical intervention was done) Allergies avocado (AVOCADO) Allergy (Severe, Verified 05/27/25 11:42) HIVES/SOB lisinopril Allergy (Severe, Verified 05/27/25 11:42) Unknown passion fruit (PASSION FRUIT) Allergy (Severe, Verified 05/27/25 11:42) HIVES/SOB sacubitril (Entresto) Allergy (Severe, Verified 05/27/25 11:42) Unknown valsartan (Entresto) Allergy (Severe, Verified 05/27/25 11:42) Unknown soy (SOY) Allergy (Unknown, Verified 05/27/25 11:42) SWELLING acetaminophen (From Percocet) Adverse Reaction (Verified 05/27/25 11:42) Gastrointestinal Upset oxycodone (From Percocet) Adverse Reaction (Verified 05/27/25 11:42) Gastrointestinal Upset Medication List - Last Reconciled 05/27/25 by Maryann Caceres PA-C acetaminophen-codeine 300-60 mg 1 tab PO TID PRN albuterol sulfate 90 mcg/actuation 1 inh inhalation Q4H PRN aspirin 81 mg PO QAM atorvastatin 40 mg PO BEDTIME betamethasone dipropionate 0.05% 1 appl topical BID blood sugar diagnostic (FreeStyle Lite Strips) As directed budesonide-formoterol 160-4.5 mcg/actuation (Symbicort) 2 puffs inhalation BID carvedilol 25 mg PO BID cetirizine 10 mg PO QAM cholecalciferol (vitamin D3) 50 mcg PO DAILY citalopram 20 mg PO QAM cyanocobalamin (vitamin B-12) 1,000 mcg PO DAILY cyclobenzaprine 10 mg PO TID PRN diclofenac sodium 1% (Arthritis Pain (diclofenac)) 4 grams topical QID PRN 30 days famotidine 40 mg PO BEDTIME furosemide 40 mg PO QAM hydralazine 50 mg PO BID insulin syringe-needle U-100 Use once a week to inject testosterone lancets (TRUEplus Lancets) As directed lansoprazole 30 mg PO DAILY metformin 1,000 mg PO multivitamin 1 tab PO QAM quetiapine 50 mg PO BEDTIME tadalafil 20 mg PO ONCE PRN 30 days testosterone cypionate 80 mg (0.4 mL) subcut QWEEK 28 days tirzepatide (Mounjaro) 7.5 mg subcut QWEEK zolpidem 5 mg PO BEDTIME HPI HPI New Prob- OA of left knee: Details: 60 yo male presents to the office today for left knee pain. He states the knee is worse with stairs and walking . He states years ago he fell on the kneecap and had a fracture. He states he never had an issue with it but over time the knee has developed pain. [facility] Medical History (Updated 05/27/25 @ 11:49 by Maryann Caceres PA-C) HFrEF (heart failure with reduced ejection fraction) ICD (implantable cardioverter-defibrillator) in place Nonischemic cardiomyopathy HTN (hypertension) Diabetes mellitus CAD (coronary artery disease) Surgical History History of removal of cyst (~05/13/25) History of carpal tunnel surgery H/O colonoscopy History of cardiac cath (~2016) Family History Father No problems noted. Mother No problems noted. Social History Household Members: Spouse Alcohol intake: former Patient Tobacco Use Status: Former Tobacco user Second Hand Smoke Exposure: No Review of Systems Const All systems reviewed & are unremarkable except as noted in HPI and below Physical Exam Vital Signs: BMI result Body Mass Index 31.2 Const General: cooperative and no acute distress Orientation/consciousness: patient oriented x3 Resp Effort & Inspection: normal respiratory effort and able to speak in complete sentences Cardio Peripheral pulses: Peripheral pulses 2+ throughout Neuro General: patient oriented x3 Extrem Other: Left knee skin intact, no erythema or joint effusion. Tenderness along the medial joint line. ROM full with crepitus. Negative steinmans. No ligamentous laxity. NVI. Office Procedures AMB Joint Injection/Aspiration Joint Injection/Aspiration Primary Site: Left Knee Prep: site was prepped using aseptic technique, ethochloride spray was applied and injection warnings given Injected: 40 mg of, Decadron, with 3 mL of, 1% plain Lidocaine, 0.25% Bupivacaine and in the joint Approach Used: anterolateral Procedure: The patient tolerated the procedure well and there was some relief with the local anesthesia Coding - Glenohumeral/Tronchanteric Bursa/Intraarticular Procedure code (CPT) selection complete Results Reviewed Results Reviewed: Xrays were obtained in the office today and personally reviewed by me of the left knee show medial compartment oa Assessment & Plan Assessment & Plan (1) Osteoarthritis of left knee: Code(s): M17.12 - Unilateral primary osteoarthritis, left knee Category: Medical Plan: We discussed options today, which include steroid injection. The patient did consent to move forward with the left knee injection, which was tolerated well.?I also placed an order for PT which he will make an appt for He was given their contact info. I recommended rest, ice and elevation and OTC antiinflammatories prn for discomfort. If symptoms persist over the next 6-8 weeks, they will contact our office, otherwise, prn Orders: Orders XR knee LT 2V Today M25.562 - Pain in left knee PT Evaluation and Treatment Today M17.12 - Unilateral primary osteoarthritis, left knee Coding Level of Care Code Est Pt Level 3 (90622) Complex visit Add On G2211 Diagnoses Osteoarthritis of left knee M17.12 CPT Codes Coding - Joint 7: 90327 - Glenohumeral/Tronchanteric Bursa/Intraarticular ([id number])
== END 2025-05-27 12:12 | disposition home or self-care (01) ==
LOC: HO.HOS 11:26
PROVIDERS: PCP Registered Nurse; Visit Provider Physician Assistant
DX: M17.12 Unilateral primary osteoarthritis, left knee (principal)
CPT/HCPCS: 20610; 99213

== ENCOUNTER → 2025-05-27 11:29 | Outpatient (BNV) | payer OTHER, SELFPAY | PROVIDERS: Visit Provider Radiology Diagnostic Ultrasound | DX: M17.12 Unilateral primary osteoarthritis, left knee (principal) | CPT/HCPCS: 73560 ==

== ENCOUNTER 2025-05-30 10:56 | Outpatient (REF) | payer OTHER, SELFPAY | END 2025-05-30 10:57 | disposition home or self-care (01) | LOC: HO.BBR 10:56 | PROVIDERS: PCP Registered Nurse; Visit Provider Urology | DX: R71.8 Other abnormality of red blood cells (principal); Z79.890 Hormone replacement therapy | CPT/HCPCS: 85014; 85018; 99195 ==

== ENCOUNTER 2025-06-04 08:47 | Outpatient (AMB) | payer OTHER, SELFPAY ==
[2025-06-04 08:54] VITALS: BP 154/64; PULSE 76; O2SAT 96; BMI 31.0
--- NOTE | 2025-06-04 08:54 | A.OFFVIS_ITS ---
Vital Signs 06/04/25 08:54 Height 5 ft 8 in Weight 204 lb BMI 31.0 BP 154/64 H Blood Pressure Location Rt brachial Position Sitting Pulse 76 Pulse Source Pulse Oximeter Pulse Oximetry (%) 96 Oxygen Delivery Method Room Air Intake Visit Reasons: 3m Intake Note: Est pt for mgmt of GERD w/ dysphagia. CC; C/O nocturnal reflux persistence despite current therapies. Pt states that his dysphagia has improved and during the day the GERD seems well controlled. Group Therapist Required: No Accompanied by: Self / Same As Patient Allergies avocado (AVOCADO) Allergy (Severe, Verified 06/04/25 08:58) HIVES/SOB lisinopril Allergy (Severe, Verified 06/04/25 08:58) Unknown passion fruit (PASSION FRUIT) Allergy (Severe, Verified 06/04/25 08:58) HIVES/SOB sacubitril (Entresto) Allergy (Severe, Verified 06/04/25 08:58) Unknown valsartan (Entresto) Allergy (Severe, Verified 06/04/25 08:58) Unknown soy (SOY) Allergy (Unknown, Verified 06/04/25 08:58) SWELLING acetaminophen (From Percocet) Adverse Reaction (Verified 06/04/25 08:58) Gastrointestinal Upset oxycodone (From Percocet) Adverse Reaction (Verified 06/04/25 08:58) Gastrointestinal Upset HPI HPI 3m: Details: LAST VISIT: Acid reflux Dysphagia H. pylori infection Postprandial epigastric pain Plan Will change PPI therapy. Patient has been on Nexium for a while. Start lansoprazole in the morning and take famotidine at night time. Continue avoiding dietary triggers only that snacking. Staying upright for minimal 3 hours after meals discussed with patient. Patient will be sent for upper GI with barium swallow to evaluate reflux, hernia. Next visit patient will be sent for upper endoscopy. Patient is due to go for colonoscopy. Last colonoscopy in 2016. Patient will return in 3 months, sooner on as needed basis. Patient is agreeable to this plan and verbalizes understanding of instructions. He was given the opportunity to ask questions and all questions answered. ? Thank you for allowing me to participate in his care Orders FL upper GI w air w Ba Swallow Today K21.9 New lansoprazole 30 mg PO DAILY 30 caps 3RF K21.9 famotidine 40 mg PO BEDTIME 30 tabs 3RF K21.9 Discontinued esomeprazole magnesium (Nexium) Discontinued Reason: Doctor's Order 40 mg PO TID 14 days 42 caps 0RF A04.8 TODAY'S VISIT Patient is here today for follow-up patient reports that he has been doing well since started taking lansoprazole in the morning. Patient takes famotidine at bedtime. Tries not to eat late at night. Patient reports also that he is eating smaller portions patient admits to over eating in the past. Patient is eating healthier now. However he does admit that occasionally when he eats late at night he will experience acid reflux he has to sleep on couple pillows. Patient denies dyspepsia, dysphagia or odynophagia. Patient reports that he is moving his bowels without any issues. Patient denies melena, hematochezia, unintentional weight loss or ribbon like stools. Patient will be due to go for colonoscopy next year. He has appointment with his director of solutions architecture in August to discuss echocardiogram. [facility] Medical History (Updated 06/04/25 @ 10:29 by Maria De Jesus T[place], [facility]) History of Helicobacter pylori infection HFrEF (heart failure with reduced ejection fraction) ICD (implantable cardioverter-defibrillator) in place Nonischemic cardiomyopathy HTN (hypertension) Diabetes mellitus CAD (coronary artery disease) Surgical History History of removal of cyst (~05/13/25) History of carpal tunnel surgery H/O colonoscopy History of cardiac cath (~2016) Family History Father No problems noted. Mother No problems noted. Social History Household Members: Spouse Alcohol intake: former Patient Tobacco Use Status: Former Tobacco user Second Hand Smoke Exposure: No Review of Systems Const Denies weight gain and Denies weight loss ENT Reports no additional complaints, Denies dysphagia and Denies odynophagia Card Reports no additional complaints Resp Reports no additional complaints GI Denies abdominal pain, Denies belching, Denies melena, Denies bloating, Denies change in bowel habits, Denies dysphagia, Denies excessive flatus, Denies dyspepsia, Denies heartburn, Denies diarrhea, Denies loose stools, Denies nausea, Denies odynophagia and Denies vomiting Reports no additional complaints Musc Reports no additional complaints Neuro Reports no additional complaints Psych Reports no additional complaints Endo Reports no additional complaints Physical Exam Vital Signs: Last Vital Signs Pulse 76 06/04/25 08:54 BP 154/64 H 06/04/25 08:54 Pulse Ox 96 06/04/25 08:54 Oxygen Delivery Method Room Air 06/04/25 08:54 BMI result Body Mass Index 31.0 Const General: healthy appearing, no acute distress and well developed Nutritional Appearance: well nourished Orientation/consciousness: patient oriented x3 Resp Effort & Inspection: normal respiratory effort, able to speak in complete sentences, no tracheal deviation and symmetric chest movement Auscultation: clear to auscultation bilaterally Cardio Rate: regular rate GI Inspection: Yes normal to inspection and No distended Palpation (GI): Soft to palpation, not firm, nontender and No hepatosplenomegaly present Auscultation: normal bowel sounds General: Yes no CVA tenderness Back/Spine/Pelvis Back: no CVA tenderness Skin General skin exam: elasticity normal, turgor normal and dry skin Neuro General: patient oriented x3 Psych Appearance: grossly normal Mental Status: mental status grossly normal Assessment & Plan Assessment & Plan (1) Acid reflux: Code(s): K21.9 - Gastro-esophageal reflux disease without esophagitis Category: Medical Qualifiers: Esophagitis presence: esophagitis presence not specified Qualified Code(s): K21.9 - Gastro-esophageal reflux disease without esophagitis (2) Dysphagia: Code(s): R13.10 - Dysphagia, unspecified Category: Medical Qualifiers: Dysphagia type: pharyngoesophageal phase Qualified Code(s): R13.14 - Dysphagia, pharyngoesophageal phase (3) Postprandial epigastric pain: Code(s): R10.13 - Epigastric pain (4) History of Helicobacter pylori infection: Code(s): Z86.19 - Personal history of other infectious and parasitic diseases Category: Medical Plan Patient will continue taking lansoprazole in the morning and famotidine at bedtime. Avoid dietary triggers and late night snacking. Staying upright for minimum 3 hours after meals discussed with patient. Patient has appointment with director of solutions architecture in August. Will ask for risk stratification before sending him for colonoscopy and upper endoscopy. Spoke to biodiesel division manager of the practice to add this to his appointment. I will see patient in September. Patient was encouraged to call us if he will have any GI concerning symptoms. Patient is agreeable to this plan and verbalizes understanding of instructions. He was given the opportunity to ask questions and all questions answered. Thank you for allowing me to participate in his care Medications: Refilled lansoprazole 30 mg PO DAILY 90 caps 3RF K21.9 - Gastro-esophageal reflux disease without esophagitis famotidine 40 mg PO BEDTIME 90 tabs 3RF K21.9 - Gastro-esophageal reflux disease without esophagitis Coding Level of Care Code Est Pt Level 4 (52530) Add On Problem Visit Only Diagnoses Gastroesophageal reflux disease, unspecified whether esophagitis present K21.9 Esophagitis presence: esophagitis presence not specified Pharyngoesophageal dysphagia R13.14 Dysphagia type: pharyngoesophageal phase Postprandial epigastric pain R10.13 History of Helicobacter pylori infection Z86.19 Time Spent (min) 35 Comment 25 minutes spent with patient and additional 10 minutes spent reviewing his records
--- OUTSIDE RECORDS SUMMARY | 2025-06-04 09:33 | XMS_ITS | Encounter Summary ---
Author Organization [employer] Address [address] [facility] 7t [place] [address] Care Team Providers Care Car Body Designer Name Role Phone Carmen Mejia [facility] Primary Care Provider [phone] Reason for Visit * Reason Comments Med Refill Encounter Details Date Type Department Care Team (Late st Contact Info) Description 10/12/2023 Refill [facility] [address] [place], [place] [phone] Carmen Mejia [facility] [address] [place] [address] Primary insomnia Social History Tobacco Use Types [...] Description 06/26/2025 9:00 AM EST Office Visit [address] [address] Carmen Mejia FNP [address] [place] [address] 07/30/2025 11:00 AM EST Office Visit [address] [address] documented as of this encounter Visit Diagnoses Diagnosis Primary insomnia Persistent disorder of initiating or maintaining sleep documented in this encounter Additional Health Concerns Assessment Noted Time PHQ-9 Depression Total Score: 24 023 9:04 AM EDT documented as of this encounter Care Teams Car Body Designer Relationship Specialty Start Date End Date Carmen Mejia FNP [address] [place] [phone] PCP - General Family Medicine 03/18/21 documented as of this encounter
--- OUTSIDE RECORDS SUMMARY | 2025-06-04 09:33 | XMS_ITS | Encounter Summary ---
Author Organization [employer] Address [address] [facility] 7t [place] [address] Care Team Providers Care Help Desk Operator Name Role Phone Carmen Mejia [facility] Primary Care Provider [phone] Encounter Details Date Type Department Care Team (Late st Contact Info) Description 06/11/2022 Orders Only [facility] [address] [place] [address] Ritika Mcgovern LPN Social History Tobacco Use [...] Description 06/26/2025 9:00 AM EST Office Visit [facility] [address] [place] [address] Carmen Mejia [facility] [address] [place] [address] 07/30/2025 11:00 AM EST Office Visit [facility] [address] [place] [address] documented as of this encounter Visit Diagnoses Not on filedocumented in this encounter Care Teams Help Desk Operator Relationship Specialty Start Date End Date Carmen Mejia FNP [address] [place] [phone] PCP - General Family Medicine 03/18/21 documented as of this encounter
--- OUTSIDE RECORDS SUMMARY | 2025-06-04 09:33 | XMS_ITS | Encounter Summary ---
Author Organization [employer] Address [address] [facility] 7t [place] [address] Care Team Providers Care Drapery Inspector Name Role Phone Carmen Mejia [facility] Primary Care Provider [phone] Reason for Visit * Reason Onset Date Comments denture appt PA 11/02/2022 Encounter Details Date Type Department Care Team (Late st Contact Info) Description 11/02/2022 Telephone [facility] [address] [place] [address] Bal Aponte, DMD [address] [place] [address] denture appt PA Social History Tobacco Use [...] Description 06/26/2025 9:00 AM EST Office Visit [address] [address] Carmen Mejia FNP [address] [place] [address] 07/30/2025 11:00 AM EST Office Visit [address] [address] documented as of this encounter Visit Diagnoses Not on filedocumented in this encounter Additional Health Concerns Assessment Noted Time PHQ-9 Depression Total Score: 0 10/15/19 23 8:58 AM EDT documented as of this encounter Care Teams Drapery Inspector Relationship Specialty Start Date End Date Carmen Mejia FNP [address] [place] [phone] PCP - General Family Medicine 03/18/21 documented as of this encounter
--- OUTSIDE RECORDS SUMMARY | 2025-06-04 09:33 | XMS_ITS | Encounter Summary ---
Author Organization [employer] Address [address] [place] [address] 7t [place] [address] Care Team Providers Care Consumer Insights Intern Name Role Phone Roberto [facility] Primary Care Provider [phone] Reason for Visit * Reason Comments Med Refill Encounter Details Date Type Department Care Team (Late st Contact Info) Description 11/18/2022 Refill [facility] [address] [place] [phone] [facility] [address] [place], [place] [phone] Primary insomnia; Type 2 diabetes mellitus with other specified complication, without long-term current use of insulin ([facility]) Social History Tobacco Use Types Packs/Day Years [...] Description 06/26/2025 9:00 AM EST Office Visit [facility] [address] [place] [phone] [facility] [address] [place] [address] 07/30/2025 11:00 AM EST Office Visit [facility] [address] [place] [address] documented as of this encounter Visit Diagnoses Diagnosis Primary insomnia Persistent disorder of initiating or maintaining sleep Type 2 diabetes mellitus with other specified complication, without long-term current use of insulin (HCC) documented in this encounter Additional Health Concerns Assessment Noted Time PHQ-9 Depression Total Score: 0 10/15/19 23 8:58 AM EDT documented as of this encounter Care Teams Consumer Insights Intern Relationship Specialty Start Date End Date Carmen Mejia FNP [address] [place] [address] PCP - General Family Medicine 03/18/21 documented as of this encounter
--- OUTSIDE RECORDS SUMMARY | 2025-06-04 09:33 | XMS_ITS | Encounter Summary ---
Author Organization [employer] Address [address] [facility] 7t [place] [address] Care Team Providers Care Tool Crib Manager Name Role Phone Carmen Mejia [facility] Primary Care Provider [phone] Reason for Visit * Reason Comments Med Refill Encounter Details Date Type Department Care Team (Late st Contact Info) Description 01/08/2024 Refill [facility] [address] [place], [place] [phone] [facility] [address] [place] [address] Moderate persistent asthma without complication Social History [...] Description 06/26/2025 9:00 AM EST Office Visit [facility] [address] [place] [address] Carmen Mejia FNP [address] [place] [address] 07/30/2025 11:00 AM EST Office Visit [address] [address] documented as of this encounter Visit Diagnoses Diagnosis Moderate persistent asthma without complication documented in this encounter Additional Health Concerns Assessment Noted Time PHQ-9 Depression Total Score: 0 11/09/19 24 9:34 AM EDT documented as of this encounter Care Teams Tool Crib Manager Relationship Specialty Start Date End Date Carmen Mejia FNP [address] [place] [phone] PCP - General Family Medicine 03/18/21 documented as of this encounter
--- OUTSIDE RECORDS SUMMARY | 2025-06-04 09:33 | XMS_ITS | Encounter Summary ---
Author Organization [employer] Address [address] [facility] 7t [place] [address] Care Team Providers Care Remote Broadcast Engineer Name Role Phone Roberto [facility] Primary Care Provider [phone] Reason for Visit * Reason Comments Med Refill Encounter Details Date Type Department Care Team (Late st Contact Info) Description 01/03/2024 Refill [facility] [address] [place], [place] [phone] Roberto, [facility] [address] [facility] [place] [address] Nontraumatic incomplete tear of rotator cuff, unspecified [...] Description 06/26/2025 9:00 AM EST Office Visit [address] [address] Carmen Mejia FNP [address] [place] [address] 07/30/2025 11:00 AM EST Office Visit [address] [address] documented as of this encounter Visit Diagnoses Diagnosis Nontraumatic incomplete tear of rotator cuff, unspecified laterality documented in this encounter Additional Health Concerns Assessment Noted Time PHQ-9 Depression Total Score: 0 11/09/19 24 9:34 AM EDT documented as of this encounter Care Teams Remote Broadcast Engineer Relationship Specialty Start Date End Date Carmen Mejia FNP [address] [place] [phone] PCP - General Family Medicine 03/18/21 documented as of this encounter
--- OUTSIDE RECORDS SUMMARY | 2025-06-04 09:33 | XMS_ITS | Clinical Summary ---
Author Organization [employer] Address [address] [facility] 7t [place] [address] Care Team Providers Care Link Trainer Operator Name Role Phone Roberto [facility] Primary Care Provider [phone] Allergies Active Allergy Reactions Criticality Noted Date [...] 1 TABLET BY MOUTH EVERY MORNING (CALL [phone] FOR APPOINTMENT (Dr. Pillai)) 023 Active carvedilol (Coreg) 25 MG tablet TAKE 1 TABLET BY MOUTH TWICE DAILY IN THE MORNING AND IN THE EVENING WITH FOOD 023 Active atorvastatin (Lipitor) 40 MG tablet Take 40 mg by mouth at bedtime. 023 Active Aspirin Low Dose 81 MG EC tablet TAKE 1 TABLET BY MOUTH EVERY MORNING (CALL [phone] FOR APPOINTMENT (Dr. Pillai )) 023 Active [...] hyperglycemia, without long-term current use of insulin ([facility]) Inject 7.5 mg under the skin [...] 05/21/20 25 11:37 AM EST 025 Active Jardiance 25 MGIndications:Ty pe 2 diabetes mellitus with other specified complication, without long-term current use of insulin ([facility]) TAKE 1 TABLET BY MOUTH EVERY [...] long-term current use of insulin ([facility]) TAKE 2 TABLETS BY MOUTH EVERY DAY AT BEDTIME 60 tablet 3 Active budesonide-formo terol (Symbicort) 160-4.5 MCG/ACT inhalerIndicatio ns:Chronic obstructive pulmonary disease, unspecified COPD type (CMS/HCC) ([facility]) INHALE 2 PUFFS BY MOUTH TWICE DAILY IN THE MORNING AND IN THE EVENING RINSE MOUTH AFTER USING. 10.2 g 3 05/21/20 25 11:37 AM EST Active acetaminophen-co deine (Tylenol w/ Codeine #4) 300-60 MG tabletIndication s:Nontraumatic incomplete tear of rotator cuff, unspecified laterality Take 1 tablet by mouth every 8 (eight) hours if needed for moderate pain. Do not start before May 30, 2025. 84 tablet 05/30/20 25 12:50 PM EST 025 Active budesonide-formo terol (Symbicort) 160-4.5 MCG/ACT inhalerIndicatio ns:Chronic obstructive pulmonary disease, unspecified COPD type (CMS/HCC) ([facility]) INHALE 2 PUFFS BY MOUTH TWICE DAILY IN THE MORNING AND IN THE EVENING RINSE MOUTH AFTER USING. 10.2 g 3 025 2024 Discontinued(R eorder (will not trigger notification to Pharmacy)) QUEtiapine (SEROquel) 50 MG tabletIndication s:Type 2 diabetes mellitus with other specified complication, without long-term current use of insulin ([facility]) TAKE 2 TABLETS BY MOUTH EVERY DAY AT BEDTIME 60 tablet 3 025 2024 Discontinued Jardiance 25 MGIndications:Ty pe 2 diabetes mellitus with other specified complication, without long-term current use of insulin ([facility]) TAKE 1 TABLET BY MOUTH EVERY MORNING 30 tablet 3 025 2024 Discontinued citalopram (CeleXA) 20 MG tabletIndication [...] tablet 05/02/20 25 12:04 PM EST 025 2024 Discontinued Active Problems Problem Noted Date Diagnosed Date Long-term current use of opiate analgesic 2023 Overview (09/25/2024): Medication: Tylenol w/ Codeine #4 (300-60mg) Q8H PRN Indication: Rotator cuff tear (not ideal surgical candidate) Tier III (Q6 month visits) Last MANUFACTURING PLANNER Agreement: 09/25/24 Assessment & Plan (04/30/2025 2:21 PM EST): Timeline: - 07/17/24: Group visit, Utox/pill count as expected - 09/25/24: Group Visit, utox/pill count as expected - 11/27/24: Group visit, utox/pill count as expected - 04/30/25: Group visit, utox/pill count as expected Assessment & Plan (11/29/2024 3:16 PM EDT): Timeline: - 11/17/23: MANUFACTURING PLANNER Agreement, Utox/pill count as expected - 12/13/23: [...] (09/25/2024 2:43 PM EDT): Timeline: - 11/17/23: MANUFACTURING PLANNER Agreement, Utox/pill count as expected - 12/13/23: [...] (07/24/2024 3:07 PM EST): Timeline: - 11/17/23: MANUFACTURING PLANNER Agreement, Utox/pill count as expected - 12/13/23: NCNS to Group visit - 12/27/23: Initial Group Visit, Utox/pill count as expected - 01/31/24: Group visit, Utox/pill count as expected - 03/13/24: Group visit, Utox/pill count as expected - 05/15/24: Group visit, Utox/pill count as expected - 07/17/24: Group visit, Utox/pill count as expected Assessment & Plan (05/15/2024 6:31 PM EST): Timeline: - 11/17/23: MANUFACTURING PLANNER Agreement, Utox/pill count as expected - 12/13/23: [...] managing pain with Tylenol #4. Compliant with MANUFACTURING PLANNER agreement Followed by [facility] pain mnmt. Assessment & Plan (04/30/2025 2:20 [...] harm Declines medication changes or referral to [facility] Contact HC if sx worsen or experiencing thoughts of SI or self harm. Pt has [facility] crisis contact information Coronary arteriosclerosis 08/05/2020 [...] 3:42 PM EDT): Continue current regimen [facility] (myocardial infarction) 12/04/2015 Encounters Date Type Department Care Team Description 05/29/2025 Refill [facility] [address] [place], [place] [phone] Carmen Mejia FNP Nontraumatic incomplete tear of rotator cuff, unspecified laterality 05/13/2025 Orders Only GENERIC EXTERNAL DATA DEPARTMENT Provider, Generic External Data 05/13/2025 Patient Outreach [facility] [address] [place] [address] Carmen Mejia FNP Pre-visit Planning (SDOH screening completed on 10/29/2024) 05/08/2025 Refill [facility] [address] [place], [place] [phone] Unique Thompson MD Type 2 diabetes mellitus with other specified complication, without long-term current use of insulin (HCC); Mood disorder (CMS/HCC); Chronic obstructive pulmonary disease, unspecified COPD type (CMS/HCC) ([facility]) 05/08/2025 Refill [facility] [address] [place], [place] [phone] Carmen Mejia FNP Chronic obstructive pulmonary disease, unspecified COPD type (CMS/HCC) ([facility]) 04/30/2025 11:00 AM EST Office Visit [facility] [address] [place], [place] [phone] Melani Haider FNP Traumatic incomplete tear of left rotator cuff, subsequent encounter (Primary Dx); Long-term current use of opiate analgesic 04/30/2025 Travel 04/29/2025 Refill [facility] [address] [place] [address] Carie Mcmillan MD Nontraumatic incomplete tear of rotator cuff, unspecified laterality 04/23/2025 Telephone [facility] [address] [place] [address] RobertoCarmen martinez FLATWORK FOLDER Appointment Request 04/14/2025 Refill [facility] [address] [place] [address] Ritika Boles DO Primary insomnia 03/28/2025 Telephone [facility] [address] [place] [address] RobertoCarmen martinez FLATWORK FOLDER Appointment Request 03/22/2025 Refill [facility] [address] [place], [place] [phone] [place] [facility] Nontraumatic incomplete tear of rotator cuff, unspecified laterality 03/11/2025 Refill [facility] [address] [place] [address] [place] [facility] Diabetes mellitus type 2 with neurological manifestations ([facility]) from Last 3 Months Immunizations Immunization Administration [...] Description 06/26/2025 9:00 AM EST Office Visit [facility] [address] [place] [address] [facility], FLATWORK FOLDER [address] [place] [address] 07/30/2025 11:00 AM EST Office Visit [address] [address] Health Maintenance Due Date Last Done Comments [...] Care Plan Weekly blood pressure task No Froilan, Ritika, ORIENTAL RUG REPAIRER Help patients manage their type 2 diabetes Care Plan Help patients manage their type 2 diabetes No FroilanHolley aguirrefer ORIENTAL RUG REPAIRER Patient has diabetic eye disease Care Plan Patient has diabetic eye disease No FroilanHolleyRitika ORIENTAL RUG REPAIRER Help patients manage their type 2 diabetes Care Plan Help patients manage their type 2 diabetes No FroilanHolleyRitika, ORIENTAL RUG REPAIRER Patient has chronic kidney disease Care Plan Patient has chronic kidney disease No FroilanHolley aguirrefer, ORIENTAL RUG REPAIRER Weekly blood pressure task Care Plan Weekly blood pressure task No FroilanDonaRitika ORIENTAL RUG REPAIRER Weekly blood pressure task Care Plan Weekly blood pressure task No FroilanHolleyRitika, ORIENTAL RUG REPAIRER Patient has diabetic eye disease Care Plan Patient has diabetic eye disease No FroilanHolleyRitika ORIENTAL RUG REPAIRER Patient has diabetic eye disease Care Plan Patient has diabetic eye disease No FroilanHolley aguirrefer ORIENTAL RUG REPAIRER Patient has chronic kidney disease Care Plan Patient has chronic kidney disease No FroilanRitika aguirre, ORIENTAL RUG REPAIRER Patient has chronic kidney disease Care Plan Patient has chronic kidney disease No FroilanRitika aguirre LPN Weekly blood pressure task Care Plan [...] has chronic kidney disease No Rosa [place] Weekly blood pressure task [...] Plan Patient has chronic kidney disease No Dilip Dia Patient has chronic kidney disease Care Plan Patient has chronic kidney disease No Dilip Dia Patient has chronic kidney disease Care Plan Patient has chronic kidney disease No Dilip, Dia Weekly blood pressure task Care Plan Weekly blood pressure task No Michelle Rincon RN Weekly blood pressure task Care Plan Weekly blood pressure task No Michelle Rincon RN Weekly blood pressure task Care Plan Weekly blood pressure task No Michelle Rincon RN Patient has diabetic eye disease Care Plan Patient has diabetic eye disease No Michelle Rincon RN Patient has diabetic eye disease Care Plan Patient has diabetic eye disease No Michelle Rincon RN Patient has diabetic eye disease Care Plan Patient has diabetic eye disease No Michelle Rincon RN Patient has chronic kidney disease Care Plan Patient has chronic kidney disease No Michelle Rincon RN Patient has chronic kidney disease Care Plan Patient has chronic kidney disease No Michelle Rincon RN Patient has chronic kidney disease Care Plan Patient has chronic kidney disease No Michelle Rincon RN Procedures Procedure Name Priority Date/Time Associated Diagnosis [...] 2 PM EST 05/13/2025 12:18 PM EST [facility] - 05/14/2025 11:56 AM EST ----- ------- Name: Andry Lehman Age/Sex: 60/M : 1965 Unit#: [id number] Attend Dr: Alexx Santoyo MD Re05/13/25 Status: DEP REF Location: HO.LNP Disch: ----- ------- SPEC : [id number] RECD: 05/13/25 STATUS: CLARK DIAS NUM: [id number] KATHY: 05/13/251202 [facility] DR: Alexx Santoyo MD ENTERED: 05/13/250 SP TYPE: Surgical OTHR DR: Carmen Mejia [facility] ORDERED: Gross Micro L3 Diagnosis Skin, [...] fibrous subcutaneous tissue, without additional discrete abnormalities. Rubber Liner sections are submitted in cassette A1. (DTL) IHC S/NG Disclaimer NOTE: Unless otherwise stated, all tissue is formalin-fixed and paraffin-embedded. Some or all of the immunohistochemical tests reported herein may have been developed and their performance characteristics determined by [facility]. They have not been cleared or approved by the U.S. Food and Drug Administration (FDA). However, the FDA has determined that such clearance or approval is not necessary. This laboratory is certified under the Clinical Laboratory Improvement Amendments of 1988 (CLIA) as qualified to perform high complexity clinical laboratory testing. Copies To: Alexx Santoyo MD [facility] General Surgeons [address] [place] [id number] CONTINUED ON NEXT PAGE ----- ------- Name: Andry Lehman Age/Sex: 60/M : 1965 Unit#: [id number] Attend Dr: Alexx Santoyo MD Re05/13/25 Status: DEP REF Location: HOPkLNP Disch: ----- ------- SPEC : [id number] RECD: 05/13/25 STATUS: CLARK DIAS NUM: [id number] KATHY: 05/13/[address] [facility] DR: Alexx Santoyo MD ENTERED: 05/13/250 SP TYPE: Surgical OTHR DR: Carmen Mejia ORDERED: Gross Micro L3 Copies To: (Continued) Carmen Mejia [address] [address] ----- ------- Signed (signature on file) Aleyda Butler MD 05/14/25 1156 ----- ------- END OF REPORT us Generic External Data Provider LAB CYTOLOGY DANYELLE DAWSON Final Result [facility] [address] [place], [place] [phone] * (ABNORMAL) POCT KINA-14 Urine Drug [...] - 04/30/2025 11:59 AM EST .UTOX cup Lot#[id number] Exp. 05/20/26 Internal Pass Control Melani Haider [facility] POINT OF CARE TEST ENTER/EDIT ORDERABLES Final Result * (ABNORMAL) POCT Hgb A1c (02/25/2025 8:53 AM EDT) Pathologist [facility] Hemoglobin A1C 8.4(A) 4.0 - 5.7 % Blood 02/25/2025 8:53 AM EDT [facility] FLATWORK FOLDER POINT OF CARE TEST ENTER/EDIT ORDERABLES Final Result * (ABNORMAL) Albumin, Random Urine W/Creatinine (11/26/2024 10:47 AM EDT) Creatinine, Urine 43.29 mg/dL [facility] Microalbumin Urine 53.0 mg/L [facility] Microalbum Creatinine Ratio Ur 122.4(H) <30 ug/mg cr [facility] Comment:Albumin/Creatinine R atio Reference Ranges: Normal: < 30 ug/mg creatinine Microalbuminuria: 30 - 300 ug/mg creatinineClinical Albuminuria: > 300 ug/mg creatinine Urine 11/26/2024 10:4 7 AM EDT 11/26/2024 1:02 PM EDT [facility] LAB URINE ORDERABLES Final Re sult Performing Organization Address City/[facility]/ZIP Co de Phone Number [facility] [address] [place] [phone] * Lipid Panel, Standard (11/26/2024 10:47 AM EDT) Triglycerides 125 <150 mg/dL [facility] Comment:Desirable Triglyceri de: less than 150 mg/dLBorderline High Triglyceride 150-199 mg/dLHigh Triglyceride: 200-499 mg/dLVery High Triglyceride: greater than or equal to 5OO mg/dL Cholesterol 127 <200 mg/dL [facility] Comment:Desirable Cholestero l: less than 200 mg/dLBorderline High Cholesterol: 200-239 mg/dLHigh Cholesterol: greater than 239 mg/dL LDL Cholesterol Calculated 59 <100 mg/dL [facility] Comment:Desirable LDL: less than 100 mg/dLNear Optimal/Above Optimal LDL: 110- 129 mg/dLBorderline High LDL: 130-159 mg/dLHigh LDL: 160-189 mg/dLVery High LDL: greater than or equal to 190 mg/dL HDL Cholesterol 43 >40 mg/dL [facility] Comment:Desirable HDL: great er than 40 mg/dL Note: This HDL assay may give artificially low results in patients with liver disease. Blood Venous blood specimen / Unknown 11/26/2024 10:47 AM EDT 11/26/2024 1:17 PM EDT [facility] FLATWORK FOLDER LAB BLOOD ORDERABLES Final Re sult Performing Organization Address City/[facility]/ZIP Co de Phone Number [facility] [address] [place] [phone] * HEPATITIS C AB W/REFL TO [...] a test for HCV RNA (test code 69973) is suggested. For additional information please refer to http://Ovelin.Happy Kidz/faq/IXJ25e9 (This link is being provided for informational/ educational purposes only.) 02/27/2020 9:28 AM EDT us Marcos Margaret FLATWORK FOLDER HISTORICAL/NON ORDERABLE LA BS Final Result [facility] Anywhere [address] * HIV 1/2 ANTIGEN/ANTIBODY,FOURTH GENERATION W/RFL [...] purpose. For additional information please refer to http://Ovelin.Happy Kidz/faq/BYE476 (This link is being provided for informational/ educational purposes only.) The performance of this assay has not been clinically validated in patients less than 2 years old. 02/27/2020 9:28 AM EDT Ministeriomcluna Margaret FLATWORK FOLDER LAB BLOOD ORDERABLES Final Result [facility] [address] [place] [address] * (ABNORMAL) Hm Colonoscopy (06/20/2015) Colonoscopy Abnormal( A) Normal Comment:polyps-5 [...] 05/14/2025 Patient has chronic kidney disease 05/14/2025 Weekly blood pressure task 05/29/2025 Weekly blood pressure task 05/29/2025 Weekly blood pressure task 05/29/2025 Patient has diabetic eye disease 05/29/2025 Patient has diabetic eye disease 05/29/2025 Patient has diabetic eye disease 05/29/2025 Patient has chronic kidney disease 05/29/2025 Patient has chronic kidney disease 05/29/2025 Patient has chronic kidney disease 05/29/[address] [place] [address] Care Teams Link Trainer Operator Relationship Specialty Start Date End Date Carmen Mejia FNP [address] [place] [phone] PCP - General Family Medicine 03/18/21
--- OUTSIDE RECORDS SUMMARY | 2025-06-04 09:33 | XMS_ITS | Encounter Summary ---
Author Organization [employer] Address [address] [facility] 7t [place] [address] Care Team Providers Care Laboratory Worker Name Role Phone Carmen Mejia [facility] Primary Care Provider [phone] Encounter Details Date Type Department Care Team (Late Contact Info) Description 10/15/2022 Orders Only [facility] [address] [place], [place] [phone] Ritika Mcgovern LPN Social History Tobacco Use [...] Description 06/26/2025 9:00 AM EST Office Visit [address] [address] Carmen Mejia [facility] [address] [place] [address] 07/30/2025 11:00 AM EST Office Visit [address] [address] documented as of this encounter Visit Diagnoses Not on filedocumented in this encounter Additional Health Concerns Assessment Noted Time PHQ-9 Depression Total Score: 0 10/15/19 23 8:58 AM EDT documented as of this encounter Care Teams Laboratory Worker Relationship Specialty Start Date End Date Carmen Mejia FNP [address] [place] [address] PCP - General Family Medicine 03/18/21 documented as of this encounter
--- OUTSIDE RECORDS SUMMARY | 2025-06-04 09:33 | XMS_ITS | Encounter Summary ---
Author Organization [employer] Address [address] [facility] 7t [place] [address] Care Team Providers Care Workers Compensation Consultant Name Role Phone Carmen Mejia [facility] Primary Care Provider [phone] Reason for Visit * Reason Comments Med Refill Encounter Details Date Type Department Care Team (Late st Contact Info) Description 11/16/2022 Refill [facility] [address] [place] [address] Melani Haider FNP [address] [place], [place] [phone] Other chronic pain Social History Tobacco Use [...] 9:00 AM EST Office Visit [facility] [address] [place] [phone] RobertoCarmen martinez [facility] [address] [place] [address] 07/30/2025 11:00 AM EST Office Visit [facility] [address] [place] [address] documented as of this encounter Visit Diagnoses Diagnosis Other chronic pain documented in this encounter Additional Health Concerns Assessment Noted Time PHQ-9 Depression Total Score: 0 10/15/19 23 8:58 AM EDT documented as of this encounter Care Teams Workers Compensation Consultant Relationship Specialty Start Date End Date Carmen Mejia FNP [address] [place] [address] PCP - General Family Medicine 03/18/21 documented as of this encounter
--- OUTSIDE RECORDS SUMMARY | 2025-06-04 09:33 | XMS_ITS | Encounter Summary ---
Author Organization [employer] Address 75 [facility] 7t [place] [address] Care Team Providers Care Intervention Nurse Name Role Phone Carmen Mejia [facility] Primary Care Provider [phone] Encounter Details Date Type Department Care Team (Late Contact Info) Description 03/07/2023 Orders Only [facility] [address] [place] [address] Shannon Sargent LPN Social History Tobacco Use [...] Description 06/26/2025 9:00 AM EST Office Visit [facility] [address] [place] [address] [facility] [address] [place] [address] 07/30/2025 11:00 AM EST Office Visit [facility] [address] [place] [address] documented as of this encounter Visit Diagnoses Not on filedocumented in this encounter Additional Health Concerns Assessment Noted Time PHQ-9 Depression Total Score: 0 01/14/20 23 9:12 AM EDT documented as of this encounter Care Teams Intervention Nurse Relationship Specialty Start Date End Date [place], STEVEN Morales [address] [place] [phone] PCP - General Family Medicine 03/18/21 documented as of this encounter
--- OUTSIDE RECORDS SUMMARY | 2025-06-04 09:33 | XMS_ITS | Encounter Summary ---
Author Organization [employer] Address [address] [facility] 7t [place] [address] Care Team Providers Care Capsule Inspector Name Role Phone Carmen Mejia [facility] Primary Care Provider [phone] Encounter Details Date Type Department Care Team (Late Contact Info) Description 07/07/2022 Orders Only [facility] [address] [place], [place] [phone] Ritika Mcgovern LPN Social History Tobacco Use [...] Description 06/26/2025 9:00 AM EST Office Visit [facility] [address] [place] [address] Carmen Mejia FNP [address] [place] [address] 07/30/2025 11:00 AM EST Office Visit [address] [address] documented as of this encounter Visit Diagnoses Not on filedocumented in this encounter Care Teams Capsule Inspector Relationship Specialty Start Date End Date Carmen Mejia FNP [address] [place] [address] PCP - General Family Medicine 03/18/21 documented as of this encounter
--- OUTSIDE RECORDS SUMMARY | 2025-06-04 09:33 | XMS_ITS | Encounter Summary ---
Author Organization [employer] Address [address] [facility] 7t [place] [address] Care Team Providers Care Manager Express Name Role Phone Carmen Mejia [employer] TRAIN[employer] Primary Care Provider [phone] Encounter Details Date Type Department Care Team (Late st Contact Info) Description 07/08/2022 Orders Only [address] [address] Shannon Sargent LPN Social History Tobacco Use [...] Description 06/26/2025 9:00 AM EST Office Visit [address] [address] Carmen Mejia FNP [address] [place] [address] 07/30/2025 11:00 AM EST Office Visit [address] [address] documented as of this encounter Visit Diagnoses Not on filedocumented in this encounter Care Teams Manager Express Relationship Specialty Start Date End Date Carmen Mejia FNP [address] [place] [address] PCP - General Family Medicine 03/18/21 documented as of this encounter
--- OUTSIDE RECORDS SUMMARY | 2025-06-04 09:33 | XMS_ITS | Encounter Summary ---
Author Organization [employer] Address 75 [facility] 7t [place] [address] Care Team Providers Care Hydraulic Jack Operator Name Role Phone Roberto [facility] Primary Care Provider [phone] Reason for Visit * Reason Comments Med Refill Encounter Details Date Type Department Care Team (Late st Contact Info) Description 01/05/2025 Refill [facility] [address] [place], [place] [phone] [facility] [address] [place] [address] Diabetes mellitus type 2 with neurological manifestations [...] Description 06/26/2025 9:00 AM EST Office Visit [facility] [address] [place] [address] Carmen Mejia FNP [address] [place] [address] 07/30/2025 11:00 AM EST Office Visit [address] [address] documented as of this encounter Visit Diagnoses Diagnosis Diabetes mellitus type 2 with neurological manifestations (HCC) documented in this encounter Additional Health Concerns Assessment Noted Time PHQ-9 Depression Total Score: 0 11/06/19 25 8:57 AM EDT documented as of this encounter Care Teams Hydraulic Jack Operator Relationship Specialty Start Date End Date Carmen Mejia FNP [address] [place] [address] PCP - General Family Medicine 03/18/21 documented as of this encounter
--- OUTSIDE RECORDS SUMMARY | 2025-06-04 09:33 | XMS_ITS | Encounter Summary ---
Author Organization [employer] Address [address] [facility] [address] [place] [address] Care Team Providers Care Infectious Disease Physician Name Role Phone Roberto [facility] Primary Care Provider [phone] Reason for Visit * Reason Comments Med Refill Encounter Details Date Type Department Care Team (Late st Contact Info) Description 01/02/2024 Refill [facility] [address] [place], [place] [phone] Roberto, [facility] [address] [facility] [place] [address] Nontraumatic incomplete tear of rotator cuff, unspecified [...] 06/26/2025 9:00 AM EST Office Visit [address] [address] Carmen Mejia FNP [address] [place] [phone] 07/30/2025 11:00 AM EST Office Visit [address] [address] documented as of this encounter Visit Diagnoses Diagnosis Nontraumatic incomplete tear of rotator cuff, unspecified laterality documented in this encounter Additional Health Concerns Assessment Noted Time PHQ-9 Depression Total Score: 0 11/09/19 24 9:34 AM EDT documented as of this encounter Care Teams Infectious Disease Physician Relationship Specialty Start Date End Date Carmen Mejia FNP [address] [place] [phone] PCP - General Family Medicine 03/18/21 documented as of this encounter
--- OUTSIDE RECORDS SUMMARY | 2025-06-04 09:33 | XMS_ITS | Encounter Summary ---
Author Organization [employer] Address [address] [facility] 7[address] [place] [address] Care Team Providers Care Optometrist Owner Name Role Phone Carmen Mejia [facility] Primary Care Provider [phone] Encounter Details Date Type Department Care Team (Late st Contact Info) Description 05/05/2023 Abstract [facility] [address] [place] [address] Dia Gibson Social History Tobacco Use Types [...] 9:00 AM EST Office Visit [facility] [address] [place] [phone] Carmen Mejia FNP [address] [place] [phone] 07/30/2025 11:00 AM EST Office Visit [address] [address] documented as of this encounter Visit Diagnoses Not on filedocumented in this encounter Additional Health Concerns Assessment Noted Time PHQ-9 Depression Total Score: 24 023 9:04 AM EDT documented as of this encounter Care Teams Optometrist Owner Relationship Specialty Start Date End Date Carmen Mejia FNP [address] [place] [phone] PCP - General Family Medicine 03/18/21 documented as of this encounter
== END 2025-06-04 09:20 | disposition home or self-care (01) ==
LOC: HO.HGI 08:48
PROVIDERS: PCP Registered Nurse; Visit Provider Nurse Practitioner Family
DX: K21.9 Gastro-esophageal reflux disease without esophagitis (principal); R13.14 Dysphagia, pharyngoesophageal phase; R10.13 Epigastric pain; Z86.19 Personal history of other infectious and parasitic diseases
CPT/HCPCS: 99214; G2211

== ENCOUNTER → 2025-06-04 08:47 | Outpatient (BNVA) | payer OTHER, SELFPAY | PROVIDERS: PCP Registered Nurse; Visit Provider Nurse Practitioner Family | DX: K21.9 Gastro-esophageal reflux disease without esophagitis (principal); R13.14 Dysphagia, pharyngoesophageal phase; R10.13 Epigastric pain; Z86.19 Personal history of other infectious and parasitic diseases; Z79.899 Other long term (current) drug therapy | CPT/HCPCS: 99212 ==

== ENCOUNTER → 2025-06-05 15:02 | Outpatient (BNV) | payer OTHER, SELFPAY | PROVIDERS: PCP Registered Nurse; Visit Provider Internal Medicine Cardiovascular Disease | DX: I50.9 Heart failure, unspecified (principal); Z95.810 Presence of automatic (implantable) cardiac defibrillator | CPT/HCPCS: 93297 ==